=== PATIENT | female | born 1960 | race Caucasian/White ===

== ENCOUNTER 2018-12-02 16:16 | Inpatient (IN) | payer OTHER ==
--- OUTSIDE RECORDS SUMMARY | 2018-12-02 16:21 | XMS REPORT | Clinical Summary ---
:1960 Author Organization [facility] Address [address] [place] [address] Care Team Providers Name Role Phone Rafael Vega MD Primary Care Provider Allergies Active Allergy Reactions Severity Noted Date Comments Penicillins Rash Low 01/31/2018 Medications Medication Sig Dispensed Refills Start Date End Date Status metFORMIN Take 1 mg by 0 Active (GLUCOPHAGE) 1,000 mouth 2 (two) mg tablet times a day. simvastatin (ZOCOR) Take 10 mg by 0 Active 20 MG tablet mouth nightly. lurasidone (LATUDA) Take 60 mg by 0 Active 60 mg tablet mouth daily. desvenlafaxine Take 100 mg by 0 Active (PRISTIQ) 100 MG 24 mouth daily. hr tablet topiramate (TOPAMAX) Take 50 mg by 0 Active 50 MG tablet mouth 2 (two) times a day. metoprolol succinate Take 100 mg by 0 Active XL (TOPROL-XL) 100 mouth daily. mg 24 hr tablet esomeprazole Take 40 mg by 0 Active (NexIUM) 40 MG mouth daily capsule before breakfast. ranitidine (ZANTAC) Take 150 mg by 0 Active 150 MG tablet mouth nightly. umeclidinium Inhale 1 puff 0 Active brm/vilanterol tr daily. (ANORO ELLIPTA INHL) polyethylene glycol Take 17 g by 0 Active (MIRALAX) 17 gram mouth daily. packet lisinopril Take 1 tablet 30 tablet 0 04/23/2018 Active (PRINIVIL,ZESTRIL) (20 mg total) 20 mg tablet by mouth nightly for 30 days. amitriptyline Take by mouth 0 Discontinued (ELAVIL) 75 MG nightly. 8 tablet levomefolate-algal Take by mouth 0 Discontinued oil (DEPLIN, ALGAL daily. 8 OIL,) 15-90.314 mg capsule furosemide (LASIX) Take 20 mg by 0 Discontinued 20 mg tablet mouth daily. 8 lisinopril Take 10 mg by 0 Discontinued (PRINIVIL,ZESTRIL) mouth nightly. 8 10 mg tablet sodium chloride 0.9% by epidural 0 Discontinued parenteral solution route 8 with morPHINE PF 1 continuously. mg/mL solution, bupivacaine (PF) 0.5 % (5 mg/mL) solution 0.0625 %, clonIDINE (PF) 1,000 mcg/10 mL (100 mcg/mL) solution 1 mcg/mL calcium carbonate Chew 1 tablet 42 tablet 0 04/23/2018 (TUMS) 200 mg (500 mg total) 8 calcium (500 mg) 3 (three) chewable tablet times a day for 14 days. docusate sodium Take 1 capsule 60 capsule 0 04/23/2018 (COLACE) 100 MG (100 mg total) 8 capsule by mouth 2 (two) times a day for 30 days. gabapentin Take 1 capsule 90 capsule 0 04/23/2018 (NEURONTIN) 100 mg (100 mg total) 8 capsule by mouth 3 (three) times a day for 30 days. pantoprazole Take 1 tablet 60 tablet 0 04/23/2018 Discontinued (PROTONIX) 40 MG EC (40 mg total) 8 tablet by mouth 2 (two) times a day for 30 days. polyethylene glycol Take 17 g by 30 packet 0 04/24/2018 Discontinued (MIRALAX) 17 gram mouth daily 8 packet for 30 days. senna (SENOKOT) 8.6 Take 2 tablets 60 tablet 0 04/24/2018 mg tablet by mouth daily 8 with lunch for 30 days. tiZANidine Take 1 tablet 30 tablet 2 04/23/2018 (ZANAFLEX) 2 MG (2 mg total) 8 tablet by mouth every 6 (six) hours as needed for muscle spasms for up to 30 days. amLODIPine (NORVASC) Take 1 tablet 30 tablet 0 04/25/2018 5 mg tablet (5 mg total) 8 by mouth daily for 30 days. Active Problems Problem Noted Date Acute post-hemorrhagic anemia 04/14/2018 S/P lumbar spinal fusion 04/14/2018 Electrolyte and fluid disorder 04/14/2018 Acute respiratory distress 04/06/2018 Post-operative pain 04/04/2018 Post-operative nausea and vomiting 04/04/2018 Chronic pain 04/04/2018 Obesity, Class III, BMI 40-49.9 (morbid obesity) 04/04/2018 Acute blood loss anemia 04/04/2018 Other secondary scoliosis 03/31/2018 Scoliosis due to degenerative disease of spine in adult patient 02/11/2018 Encounters Date Type Specialty Care Team Description 10/12/2018 Office Visit Elizabeth Thomas, S/P lumbar spinal Brandt Dhillon MD fusion (Primary Dx) 10/12/2018 Hospital Encounter Radiology Allen Thomas MD thoracolumbar spine, unspecified scoliosis type 10/12/2018 Orders Only Neurosurgery Portillo, Lumbar radiculopathy, acute ( Primary Dx); [place], [place] Thoracic spine pain 10/12/2018 Orders Only Neurosurgery Leuf[place]Karo Scoliosis of za, Yasmeen, thoracolumbar spine, MA unspecified scoliosis type (Primary Dx) 08/26/2018 Office Visit AMINATA Atkinson MD ENCOUNTER--DISREGARD (Primary Dx) 08/25/2018 Orders Only Neurosurgery [place] Scoliosis of za, Yasmeen, thoracolumbar spine, MA unspecified scoliosis type (Primary Dx) 05/18/2018 Office Visit Elizabeth Thomas, Scoliosis due to Brandt Dhillon MD degenerative disease of spine in adult patient (Primary Dx) 05/18/2018 Hospital Encounter Radiology Allen Thomas MD thoracolumbar spine, unspecified scoliosis type 05/15/2018 Transcribe Orders Neurosurgery [place]Karo Scoliosis of za, Yasmeen, thoracolumbar spine, MA unspecified scoliosis type (Primary Dx) 04/14/2018 - Hospital Encounter Rehabilitation Tastard, Scoliosis due to 04/24/2018 Lexie Gunn MD degenerative disease of spine in adult patient (Primary Dx) 04/03/2018 Anesthesia Event General Surgery Emperatriz Messer MD 04/03/2018 Surgery General Surgery William, L2-L3, L4-L5 LATERAL Brandt Dhillon MD INTERBODY FUSION W/ INSTRUMENTATION 03/31/2018 Anesthesia Event General Surgery 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 03/31/2018 - Hospital Encounter Neurosurgery William, Other secondary scoliosis; 04/14/2018 Brandt Dhillon MD Scoliosis of lumbar spine, unspecified scoliosis type 03/16/2018 Hospital Encounter Radiology William, Preop testing Brandt Dhillon MD 03/16/2018 Pre-Admit Testing Pre-Admission Testing William Preop testing ( Primary Appointment Brandt Dhillon MD Dx) 03/12/2018 Pre-Admit Testing Pre-Admission Testing William Preop testing ( Primary Appointment Brandt Dhillon MD Dx) 02/04/2018 Hospital Encounter Radiology William Age-related Brandt Dhillon MD osteoporosis with current pathological fracture, initial encounter 02/04/2018 Hospital Encounter Radiology William Age-related Brandt Dhillon MD osteoporosis with current pathological fracture, initial encounter 02/04/2018 Office Visit Neurosurgery William, Scoliosis due to Brandt Dhillon MD degenerative disease of spine in adult patient (Primary Dx) 02/04/2018 Transcribe Orders Neurosurgery Jose RamonKaro Age-related za, Yasmeen, osteoporosis with MA current pathological fracture, initial encounter (Primary Dx) after 12/01/2017 Family History Medical History Relation Name Comments Cancer Paternal Grandfather HIGH BLOOD PRESSURE/DIABETES/STROKE/THYROID TOOLITTLE Relation Name Status Comments Paternal Grandfather Other Social History Tobacco Use Types Packs/Day Years Used Date Former Smoker 2 25 Quit: 2011 Smokeless Tobacco: Never Used Comments: QUITE 5 YEARS Alcohol Use Drinks/Week oz/Week Comments No Sex Assigned at Date Recorded Not on file Job Start Date Occupation Industry Not on file Not on file Not on file Travel History Travel Start Travel End No recent travel history available. Last Filed Vital Signs Vital Sign Reading Time Taken Blood Pressure 118/65 04/24/2018 10:49 AM CDT Pulse 82 04/24/2018 10:49 AM CDT Temperature 37.1 C (98.7 F) 04/24/2018 10:49 AM CDT Respiratory Rate 18 04/24/2018 10:49 AM CDT Oxygen Saturation 95% 04/24/2018 10:49 AM CDT Inhaled Oxygen Concentration - - Weight 117 kg (259 lb) 03/31/2018 6:56 AM CDT Height 170.2 cm (5' 7") 03/31/2018 6:56 AM CDT Body Mass Index 40.57 03/31/2018 6:56 AM CDT Plan of Treatment Date Type Specialty Care Team Description 04/07/2019 Appointment Radiology Brandt Thomas MD [address] [place], [place] [id number] 04/07/2019 Appointment Radiology Brandt Thomas MD [address] [place], [place] [phone] 04/07/2019 Office Visit Neurosurgery Brandt Thomas MD [address] [place], [place] [phone] Health Maintenance Due Date Last Done Comments CERVICAL CANCER SCREENING 1981 BREAST CANCER SCREENING 2010 COLON CANCER SCREENING 2010 SHINGLES VACCINES (#1) 2010 INFLUENZA VACCINE Completed 10/16/2018 Implants Implanted Type Area Business Office Assistant Device Shelf Model / Identifier Expiration Serial / Lot Date Bone Matriz Osteocel Pro Large - [id number] - [id number] Human Tissue N/A: NUVASIVE 02/18/2023 [id number] / Implanted: Qty: 1 on 03/31/2018 by Brandt Thomas MD Implants N/A [id number] / [id number] Paste Dbm Easy-Dispensing Wdmth Syr 10ml [address] - [id number] - [id number] Human Tissue Posteri MEDTRONIC 10/28/2019 [id number] / Implanted: Qty: 1 on 04/03/2018 by Brandt Thomas MD Implants or: N/A SPINAL GRAFT [id number] / TECHNOLOGIES [id number] Paste Dbm Easy-Dispensing Wdmth Syr 10ml [address] - [id number] - [id number] Human Tissue Posteri MEDTRONIC 10/30/2019 [id number] / Implanted: Qty: 1 on 04/03/2018 by Brandt Thomas MD Implants or: N/A SPINAL GRAFT [id number] / TECHNOLOGIES [id number] Bone Cancellous 30ml Chips - [id number] - [id number] Human Tissue Posteri RTI SURGICAL 01/30/2022 [id number] / Implanted: Qty: 1 on 04/03/2018 by Brandt Thomas MD Implants or: N/A INC. [id number] / [id number] Bone Cancellous 30ml Chips - [id number] - [id number] Human Tissue Posteri RTI SURGICAL 01/30/2022 [id number] / Implanted: Qty: 1 on 04/03/2018 by Brandt Thomas MD Implants or: N/A INC. [id number] / [id number] Bone Matriz Osteocel Pro Large - [id number] - [id number] Human Tissue N/A: NUVASIVE 11/13/2022 [id number] / Implanted: Qty: 1 on 04/03/2018 by Brandt Thomas MD Implants N/A [id number] / [id number] Kit Bone Grft Lmbr Tprd 8ml Xxl Infuse - [id number] Human Tissue Posteri MEDTRONIC 02/20/2019 [id number] / Implanted: Qty: 1 on 04/03/2018 by Brandt Thomas MD Implants or: N/A SPINAL AND / BIOLOGICS [id number] Kit Bone Grft Lmbr Tprd 8ml Xxl Infuse - [id number] Human Tissue Posteri MEDTRONIC 02/20/2019 [id number] / Implanted: Qty: 1 on 04/03/2018 by Brandt Thomas MD Implants or: N/A SPINAL AND / BIOLOGICS [id number] Maxcess 4 Surgical Access Kit - [id number] IPM IMPLANT N/A: NUVASIVE SPINE [id number] / Implanted: Qty: 1 on 03/31/2018 by Brandt Thomas MD DEVICES N/A / Base Ti Imp, [id number] 10 - [id number] [id number] IMPLANT N/A: NUVASIVE SPINE [id number] / Implanted: Qty: 1 on 03/31/2018 by Bradnt Thomas MD DEVICES N/A / Base Ti [place] 6.0 X 17.5mm Variable - [id number] IPM IMPLANT N/A: NUVASIVE SPINE [id number] / Implanted: Qty: 1 on 03/31/2018 by Brandt Thomas MD DEVICES N/A / Modulus Xlw, [id number] 15deg - [id number] [id number] IMPLANT N/A: NUVASIVE SPINE 01/05/2023 [id number] / Implanted: Qty: 1 on 04/03/2018 by Brandt Thomas MD DEVICES N/A / [id number] Modulus Xlw, [id number] 15deg - [id number] IPM IMPLANT N/A: NUVASIVE SPINE 01/05/2023 [id number] / Implanted: Qty: 1 on 04/03/2018 by Brandt Thomas MD DEVICES N/A / [id number] Maxcess 4 Surgical Access Kit - [id number] [id number] IMPLANT N/A: NUVASIVE SPINE [id number] / Implanted: 04/03/2018 (Quantity not on file) DEVICES N/A / Unid Patient Specific William 5.5 - [id number] IPM IMPLANT N/A: MEDICREA INT'L 07/04/2018 [id number] / Implanted: 04/03/2018 (Quantity not on file) DEVICES N/A / [id number] Screw [id number] Bs Cnmas 7.5x80 T/C - [id number] IPM IMPLANT Posteri MEDTRONIC [id number] / Implanted: Qty: 1 on 04/03/2018 by Brandt Thomas MD DEVICES or: N/A SOFAMOR DANEK / Screw [id number] 5.5 Mas 7.5x100 Cc - [id number] IPM IMPLANT Posteri MEDTRONIC [id number] / Implanted: Qty: 1 on 04/03/2018 by Brandt Thomas MD DEVICES or: N/A SOFAMOR DANEK / Screw [id number] 5.5 Mas 5.5x35 Cc - [id number] IPM IMPLANT Posteri MEDTRONIC [id number] / Implanted: Qty: 4 on 04/03/2018 by Brandt Thomas MD DEVICES or: N/A SOFAMOR DANEK / Screw [id number] 5.5 Mas 5.5x40 Cc - [id number] IPM IMPLANT Posteri MEDTRONIC [id number] / Implanted: Qty: 3 on 04/03/2018 by Brandt Thomas MD DEVICES or: N/A SOFAMOR DANEK / Screw [id number] 5.5 Mas 5.5x45 Cc - [id number] IPM IMPLANT Posteri MEDTRONIC [id number] / Implanted: Qty: 12 on 04/03/2018 by Brandt Thomas MD DEVICES or: N/A SOFAMOR DANEK / Screw [id number] 5.5 Mas 5.5x50 Cc - [id number] IPM IMPLANT Posteri MEDTRONIC [id number] / Implanted: Qty: 2 on 04/03/2018 by Brandt Thomas MD DEVICES or: N/A SOFAMOR DANEK / Screw [id number] 5.5 Mas 6.5x50 Cc - [id number] IPM IMPLANT Posteri MEDTRONIC [id number] / Implanted: Qty: 1 on 04/03/2018 by Brandt Thomas MD DEVICES or: N/A SOFAMOR DANEK / Screw [id number] 5.5 Mas 6.5x45 Cc - [id number] IPM IMPLANT Posteri MEDTRONIC [id number] / Implanted: Qty: 3 on 04/03/2018 by Brandt Thomas MD DEVICES or: N/A SOFAMOR DANEK / Screw [id number] 5.5 Mas 7.5x40 Cc - [id number] IPM IMPLANT Posteri MEDTRONIC [id number] / Implanted: Qty: 1 on 04/03/2018 by Brandt Thomas MD DEVICES or: N/A SOFAMOR DANEK / Screw [id number] 5.5 Mas 7.5x35 Cc - [id number] IPM IMPLANT Posteri MEDTRONIC [id number] / Implanted: Qty: 1 on 04/03/2018 by Brandt Thomas MD DEVICES or: N/A SOFAMOR DANEK / Screw [id number] 5.5 Mas 8.5x50 Cc - [id number] IPM IMPLANT Posteri MEDTRONIC [id number] / Implanted: Qty: 1 on 04/03/2018 by Brandt Thomas MD DEVICES or: N/A SOFAMOR DANEK / Screw [id number] 5.5 Mas 8.5x40 Cc - [id number] IPM IMPLANT Posteri MEDTRONIC [id number] / Implanted: Qty: 1 on 04/03/2018 by Brandt Thomas MD DEVICES or: N/A SOFAMOR DANEK / Screw [id number] 5.5 Mas 6.5x50 Cc - [id number] IPM IMPLANT Posteri MEDTRONIC [id number] / Implanted: Qty: 1 on 04/03/2018 by Brandt Thomas MD DEVICES or: N/A SOFAMOR DANEK / Connector [id number] 5/6-6.0 Clsd Lat 20 - [id number] IPM IMPLANT Posteri MEDTRONIC [id number] / Implanted: Qty: 1 on 04/03/2018 by Brandt Thomas MD DEVICES or: N/A SOFAMOR DANEK / Connector [id number] 5/6-6.0 Clsd Lat 25 - [id number] IPM IMPLANT Posteri MEDTRONIC [id number] / Implanted: Qty: 1 on 04/03/2018 by Brandt Thomas MD DEVICES or: N/A SOFAMOR DANEK / Material Bone Hmsts Wtrsolbl 2.5g Ostene - [id number] Orthopedic N/A: [id number] / Implanted: Qty: 1 on 03/31/2018 by Brandt Thomas MD Trauma N/A / Implants [id number] Material Bone Hmsts Wtrsolbl 2.5g Ostene - [id number] Orthopedic N/A: [id number] / Implanted: Qty: 1 on 03/31/2018 by Brandt Thomas MD Trauma N/A / Implants [id number] Material Bone Hmsts Wtrsolbl 2.5g Ostene - [id number] Orthopedic N/A: [id number] / Implanted: Qty: 1 on 04/03/2018 by Brandt Thomas MD Trauma N/A / Implants [id number] Material Bone Hmsts Wtrsolbl 2.5g Ostene - [id number] Orthopedic N/A: [id number] / Implanted: Qty: 1 on 04/03/2018 by Brandt Thomas MD Trauma N/A / Implants [id number] Screw Bone Canc Lag 4x30mm Ns - [id number] Orthopedic Posteri MEDTRONIC [id number] / Implanted: Qty: 32 on 04/03/2018 by Brandt Thomas MD Trauma or: N/A SOFAMOR DANEK / Implants Kit Dil M5 Xlif - [id number] Spinal N/A: NUVASIVE [id number] / Implanted: Qty: 1 on 03/31/2018 by Brandt Thomas MD Implants N/A / Kit Dil M5 Xlif - [id number] Spinal N/A: NUVASIVE [id number] / Implanted: 04/03/2018 (Quantity not on file) Implants N/A / Screw Set Std Ti 1/4in 32mm - [id number] Spinal Posteri MEDTRONIC [id number] / Implanted: Qty: 2 on 04/03/2018 by Brandt Thomas MD Implants or: N/A SPINAL AND / BIOLOGICS Procedures Procedure Name Priority Date/Time Associated Diagnosis Comments XR SPINE SCOLIOSIS 2-3 Routine 10/12/2018 2:09 Scoliosis of Results for this VIEWS PM WATCH ADJUSTER thoracolumbar spine, procedure are in unspecified scoliosis the results type section. TRANSFUSE RED BLOOD Routine 05/27/2018 5:55 CELLS PM CDT XR SPINE SCOLIOSIS 2-3 Routine 05/18/2018 12:14 Scoliosis of Results for this VIEWS PM CDT thoracolumbar spine, procedure are in unspecified scoliosis the results type section. POC GLUCOSE Routine 04/24/2018 7:13 Results for this AM CDT procedure are in the results section. POC GLUCOSE Routine 04/23/2018 7:40 Results for this AM CDT procedure are in the results section. POC GLUCOSE Routine 04/22/2018 6:42 Results for this AM CDT procedure are in the results section. POC GLUCOSE Routine 04/21/2018 6:33 Results for this AM CDT procedure are in the results section. POC GLUCOSE Routine 04/20/2018 8:34 Results for this PM CDT procedure are in the results section. POC GLUCOSE Routine 04/20/2018 6:22 Results for this AM CDT procedure are in the results section. ZZESTIMATED GFR Routine 04/20/2018 4:00 Results for this AM CDT procedure are in the results section. BASIC METABOLIC PANEL Routine 04/20/2018 4:00 Results for this AM CDT procedure are in the results section. POC GLUCOSE Routine 04/19/2018 6:46 Results for this AM CDT procedure are in the results section. POC GLUCOSE Routine 04/18/2018 5:50 Results for this PM CDT procedure are in the results section. POC GLUCOSE Routine 04/18/2018 6:28 Results for this AM CDT procedure are in the results section. SMEAR REVIEW Routine 04/18/2018 5:00 Results for this AM CDT procedure are in the results section. ZZESTIMATED GFR Routine 04/18/2018 5:00 Results for this AM CDT procedure are in the results section. THYROID STIMULATING Routine 04/18/2018 5:00 Results for this HORMONE AM CDT procedure are in the results section. HC COMPLETE BLD COUNT Routine 04/18/2018 5:00 Results for this W/AUTO DIFF AM CDT procedure are in the results section. BASIC METABOLIC PANEL Routine 04/18/2018 5:00 Results for this AM CDT procedure are in the results section. URINALYSIS SCREEN AND Routine 04/17/2018 9:16 Results for this MICROSCOPY, WITH PM CDT procedure are in REFLEX TO CULTURE the results section. URINE CULTURE Routine 04/17/2018 9:16 Results for this PM CDT procedure are in the results section. POC GLUCOSE Routine 04/17/2018 9:10 Results for this PM CDT procedure are in the results section. NM LUNG VENTILATION STAT 04/17/2018 8:29 Results for this PERFUSION PM CDT procedure are in the results section. XR CHEST 1 VW PORTABLE STAT 04/17/2018 5:11 Results for this PM CDT procedure are in the results section. POC GLUCOSE Routine 04/17/2018 4:59 Results for this PM CDT procedure are in the results section. ZZESTIMATED GFR Routine 04/17/2018 12:55 Results for this PM CDT procedure are in the results section. COMPREHENSIVE Routine 04/17/2018 12:55 Results for this METABOLIC PANEL PM CDT procedure are in the results section. HC COMPLETE BLD COUNT Routine 04/17/2018 12:55 Results for this W/AUTO DIFF PM CDT procedure are in the results section. POC GLUCOSE Routine 04/17/2018 11:07 Results for this AM CDT procedure are in the results section. POC GLUCOSE Routine 04/17/2018 6:43 Results for this AM CDT procedure are in the results section. POC GLUCOSE Routine 04/16/2018 9:08 Results for this PM CDT procedure are in the results section. POC GLUCOSE Routine 04/16/2018 5:00 Results for this PM CDT procedure are in the results section. POC GLUCOSE Routine 04/16/2018 11:16 Results for this AM CDT procedure are in the results section. POC GLUCOSE Routine 04/16/2018 6:36 Results for this AM CDT procedure are in the results section. POC GLUCOSE Routine 04/15/2018 8:43 Results for this PM CDT procedure are in the results section. POC GLUCOSE Routine 04/15/2018 4:55 Results for this PM CDT procedure are in the results section. POC GLUCOSE Routine 04/15/2018 11:07 Results for this AM CDT procedure are in the results section. HEMOGLOBIN A1C Routine 04/15/2018 7:02 Results for this AM CDT procedure are in the results section. HC COMPLETE BLD COUNT Routine 04/15/2018 7:02 Results for this W/AUTO DIFF AM CDT procedure are in the results section. POC GLUCOSE Routine 04/15/2018 6:23 Results for this AM CDT procedure are in the results section. POC GLUCOSE Routine 04/14/2018 8:59 Results for this PM CDT procedure are in the results section. URINALYSIS, AUTOMATED Routine 04/14/2018 8:30 Results for this WITH MICROSCOPY PM CDT procedure are in the results section. ZZESTIMATED GFR Routine 04/14/2018 7:45 Results for this PM CDT procedure are in the results section. PREALBUMIN LEVEL Routine 04/14/2018 7:45 Results for this PM CDT procedure are in the results section. PHOSPHORUS LEVEL Routine 04/14/2018 7:45 Results for this PM CDT procedure are in the results section. MAGNESIUM LEVEL Routine 04/14/2018 7:45 Results for this PM CDT procedure are in the results section. COMPREHENSIVE Routine 04/14/2018 7:45 Results for this METABOLIC PANEL PM CDT procedure are in the results section. POC GLUCOSE Routine 04/14/2018 4:45 Results for this PM CDT procedure are in the results section. POC GLUCOSE Routine 04/14/2018 11:30 Results for this AM CDT procedure are in the results section. POTASSIUM LEVEL Routine 04/14/2018 8:22 Results for this AM CDT procedure are in the results section. POC GLUCOSE Routine 04/14/2018 7:24 Results for this AM CDT procedure are in the results section. POC GLUCOSE Routine 04/13/2018 9:43 Results for this PM CDT procedure are in the results section. POC GLUCOSE Routine 04/13/2018 5:21 Results for this PM CDT procedure are in the results section. POC GLUCOSE Routine 04/13/2018 11:29 Results for this AM CDT procedure are in the results section. ZZESTIMATED GFR Routine 04/13/2018 3:35 Results for this AM CDT procedure are in the results section. HC COMPLETE BLD COUNT Routine 04/13/2018 3:35 Results for this W/AUTO DIFF AM CDT procedure are in the results section. MAGNESIUM LEVEL Routine 04/13/2018 3:35 Results for this AM CDT procedure are in the results section. BASIC METABOLIC PANEL Routine 04/13/2018 3:35 Results for this AM CDT procedure are in the results section. POC GLUCOSE Routine 04/12/2018 8:10 Results for this PM CDT procedure are in the results section. POC GLUCOSE Routine 04/12/2018 3:55 Results for this PM CDT procedure are in the results section. POC GLUCOSE Routine 04/12/2018 11:24 Results for this AM CDT procedure are in the results section. POC GLUCOSE Routine 04/12/2018 7:54 Results for this AM CDT procedure are in the results section. HC COMPLETE BLD COUNT Routine 04/12/2018 6:35 Results for this W/AUTO DIFF AM CDT procedure are in the results section. ZZESTIMATED GFR Routine 04/12/2018 4:00 Results for this AM CDT procedure are in the results section. BASIC METABOLIC PANEL Routine 04/12/2018 4:00 Results for this AM CDT procedure are in the results section. POC GLUCOSE Routine 04/11/2018 10:20 Results for this PM CDT procedure are in the results section. POC GLUCOSE Routine 04/11/2018 4:34 Results for this PM CDT procedure are in the results section. POC GLUCOSE Routine 04/11/2018 12:06 Results for this PM CDT procedure are in the results section. POC GLUCOSE Routine 04/11/2018 8:13 Results for this AM CDT procedure are in the results section. ZZESTIMATED GFR Routine 04/11/2018 4:00 Results for this AM CDT procedure are in the results section. BASIC METABOLIC PANEL Routine 04/11/2018 4:00 Results for this AM CDT procedure are in the results section. POC GLUCOSE Routine 04/10/2018 10:01 Results for this PM CDT procedure are in the results section. POC GLUCOSE Routine 04/10/2018 4:36 Results for this PM CDT procedure are in the results section. ZZESTIMATED GFR Timed 04/10/2018 2:35 Results for this PM CDT procedure are in the results section. BASIC METABOLIC PANEL Timed 04/10/2018 2:35 Results for this PM CDT procedure are in the results section. POC GLUCOSE Routine 04/10/2018 12:05 Results for this PM CDT procedure are in the results section. POC GLUCOSE Routine 04/10/2018 7:59 Results for this AM CDT procedure are in the results section. CBC HEMOGRAM Routine 04/10/2018 3:25 Results for this AM CDT procedure are in the results section. ZZESTIMATED GFR Routine 04/10/2018 3:25 Results for this AM CDT procedure are in the results section. BASIC METABOLIC PANEL Routine 04/10/2018 3:25 Results for this AM CDT procedure are in the results section. POC GLUCOSE Routine 04/09/2018 9:05 Results for this PM CDT procedure are in the results section. POC GLUCOSE Routine 04/09/2018 4:08 Results for this PM CDT procedure are in the results section. POC GLUCOSE Routine 04/09/2018 11:40 Results for this AM CDT procedure are in the results section. VANCOMYCIN LEVEL, Timed 04/09/2018 9:26 Results for this TROUGH AM CDT procedure are in the results section. POC GLUCOSE Routine 04/09/2018 8:20 Results for this AM CDT procedure are in the results section. POC GLUCOSE Routine 04/09/2018 4:38 Results for this AM CDT procedure are in the results section. ZZESTIMATED GFR Routine 04/09/2018 4:00 Results for this AM CDT procedure are in the results section. BASIC METABOLIC PANEL Routine 04/09/2018 4:00 Results for this AM CDT procedure are in the results section. POC GLUCOSE Routine 04/08/2018 11:50 Results for this PM CDT procedure are in the results section. POC GLUCOSE Routine 04/08/2018 9:09 Results for this PM CDT procedure are in the results section. POC GLUCOSE Routine 04/08/2018 5:04 Results for this PM CDT procedure are in the results section. ECG 12-LEAD STAT 04/08/2018 3:34 Results for this PM CDT procedure are in the results section. TROPONIN STAT 04/08/2018 3:04 Results for this PM CDT procedure are in the results section. ZZESTIMATED GFR Routine 04/08/2018 3:04 Results for this PM CDT procedure are in the results section. BASIC METABOLIC PANEL Routine 04/08/2018 3:04 Results for this PM CDT procedure are in the results section. HC COMPLETE BLD COUNT Routine 04/08/2018 3:04 Results for this W/AUTO DIFF PM CDT procedure are in the results section. POC GLUCOSE Routine 04/08/2018 11:55 Results for this AM CDT procedure are in the results section. POC GLUCOSE Routine 04/08/2018 8:23 Results for this AM CDT procedure are in the results section. POC GLUCOSE Routine 04/08/2018 5:43 Results for this AM CDT procedure are in the results section. POC GLUCOSE Routine 04/07/2018 10:45 Results for this PM CDT procedure are in the results section. POC GLUCOSE Routine 04/07/2018 8:15 Results for this PM CDT procedure are in the results section. VANCOMYCIN LEVEL, Routine 04/07/2018 5:07 Results for this RANDOM PM CDT procedure are in the results section. POC GLUCOSE Routine 04/07/2018 5:02 Results for this PM CDT procedure are in the results section. POC GLUCOSE Routine 04/07/2018 11:51 Results for this AM CDT procedure are in the results section. POTASSIUM LEVEL Routine 04/07/2018 11:26 Results for this AM CDT procedure are in the results section. XR CHEST 1 VW PORTABLE Timed 04/07/2018 10:14 Results for this AM CDT procedure are in the results section. POC GLUCOSE Routine 04/07/2018 7:58 Results for this AM CDT procedure are in the results section. ZZESTIMATED GFR Routine 04/07/2018 5:12 Results for this AM CDT procedure are in the results section. PHOSPHORUS LEVEL Routine 04/07/2018 5:12 Results for this AM CDT procedure are in the results section. MAGNESIUM LEVEL Routine 04/07/2018 5:12 Results for this AM CDT procedure are in the results section. IONIZED CALCIUM Routine 04/07/2018 5:12 Results for this AM CDT procedure are in the results section. CBC HEMOGRAM Routine 04/07/2018 5:12 Results for this AM CDT procedure are in the results section. BASIC METABOLIC PANEL Routine 04/07/2018 5:12 Results for this AM CDT procedure are in the results section. POC GLUCOSE Routine 04/07/2018 12:34 Results for this AM CDT procedure are in the results section. POC GLUCOSE Routine 04/06/2018 8:53 Results for this PM CDT procedure are in the results section. POC GLUCOSE Routine 04/06/2018 4:00 Results for this PM CDT procedure are in the results section. POC GLUCOSE Routine 04/06/2018 11:26 Results for this AM CDT procedure are in the results section. XR PICC CHEST PORTABLE Routine 04/06/2018 11:18 Scoliosis of lumbar Results for this AM CDT spine, unspecified procedure are in scoliosis type the results section. HC CATH DUAL LUMEN Routine 04/06/2018 10:34 Results for this PICC AM CDT procedure are in the results section. HC US GUIDED VASCULAR Routine 04/06/2018 10:34 Results for this ACCESS AM CDT procedure are in the results section. HC CVL PICC INSERT 5 Routine 04/06/2018 10:34 Results for this YRS OR > W/O IMG GUID AM CDT procedure are in the results section. INTRAOPERATIVE Routine 04/06/2018 7:24 MONITORING AM CDT POC GLUCOSE Routine 04/06/2018 7:11 Results for this AM CDT procedure are in the results section. PREPARE RBC Timed 04/06/2018 6:40 AM CDT PREPARE RBC Timed 04/06/2018 6:40 Results for this AM CDT procedure are in the results section. TYPE AND SCREEN Timed 04/06/2018 6:40 Results for this AM CDT procedure are in the results section. ZZESTIMATED GFR Routine 04/06/2018 4:02 Results for this AM CDT procedure are in the results section. MAGNESIUM LEVEL Routine 04/06/2018 4:02 Results for this AM CDT procedure are in the results section. PHOSPHORUS LEVEL Routine 04/06/2018 4:02 Results for this AM CDT procedure are in the results section. COMPREHENSIVE Routine 04/06/2018 4:02 Results for this METABOLIC PANEL AM CDT procedure are in the results section. HC COMPLETE BLD COUNT Routine 04/06/2018 3:50 Results for this W/AUTO DIFF AM CDT procedure are in the results section. POC GLUCOSE Routine 04/06/2018 3:37 Results for this AM CDT procedure are in the results section. POC GLUCOSE Routine 04/05/2018 11:44 Results for this PM CDT procedure are in the results section. ZZESTIMATED GFR Timed 04/05/2018 8:00 Results for this PM CDT procedure are in the results section. BASIC METABOLIC PANEL Timed 04/05/2018 8:00 Results for this PM CDT procedure are in the results section. POC GLUCOSE Routine 04/05/2018 7:32 Results for this PM CDT procedure are in the results section. US HEPATIC Routine 04/05/2018 4:00 Results for this PM CDT procedure are in the results section. POC GLUCOSE Routine 04/05/2018 3:25 Results for this PM CDT procedure are in the results section. ECG 12-LEAD Routine 04/05/2018 2:40 Results for this PM CDT procedure are in the results section. XR ABDOMEN 1 VW STAT 04/05/2018 12:38 Results for this PORTABLE PM CDT procedure are in the results section. POC GLUCOSE Routine 04/05/2018 11:30 Results for this AM CDT procedure are in the results section. ZZESTIMATED GFR Routine 04/05/2018 10:20 Results for this AM CDT procedure are in the results section. ARTERIAL BLOOD GAS Routine 04/05/2018 10:20 Results for this AM CDT procedure are in the results section. BASIC METABOLIC PANEL Routine 04/05/2018 10:20 Results for this AM CDT procedure are in the results section. US DUPLEX VENOUS LOWER STAT 04/05/2018 8:28 Results for this EXTREMITY BILATERAL AM CDT procedure are in the results section. POC GLUCOSE Routine 04/05/2018 7:00 Results for this AM CDT procedure are in the results section. ARTERIAL BLOOD GAS Routine 04/05/2018 6:37 Results for this AM CDT procedure are in the results section. XR CHEST 1 VW PORTABLE STAT 04/05/2018 5:08 Results for this AM CDT procedure are in the results section. ARTERIAL BLOOD GAS STAT 04/05/2018 5:00 Results for this AM CDT procedure are in the results section. CT ANGIOGRAM PE CHEST STAT 04/05/2018 4:52 Results for this AM CDT procedure are in the results section. POC GLUCOSE Routine 04/05/2018 3:52 Results for this AM CDT procedure are in the results section. POTASSIUM LEVEL STAT 04/05/2018 3:35 Results for this AM CDT procedure are in the results section. PHOSPHORUS LEVEL STAT 04/05/2018 3:35 Results for this AM CDT procedure are in the results section. BLOOD CULTURE, AEROBIC Routine 04/05/2018 2:00 Results for this & ANAEROBIC AM CDT procedure are in the results section. BLOOD CULTURE, AEROBIC Routine 04/05/2018 1:00 Results for this & ANAEROBIC AM CDT procedure are in the results section. MANUAL DIFFERENTIAL Routine 04/05/2018 12:10 Results for this AM CDT procedure are in the results section. CBC WITH PLATELET AND Routine 04/05/2018 12:10 Results for this DIFFERENTIAL AM CDT procedure are in the results section. ZZESTIMATED GFR Routine 04/05/2018 12:03 Results for this AM CDT procedure are in the results section. IONIZED CALCIUM Routine 04/05/2018 12:03 Results for this AM CDT procedure are in the results section. PHOSPHORUS LEVEL Routine 04/05/2018 12:03 Results for this AM CDT procedure are in the results section. MAGNESIUM LEVEL Routine 04/05/2018 12:03 Results for this AM CDT procedure are in the results section. COMPREHENSIVE Routine 04/05/2018 12:03 Results for this METABOLIC PANEL AM CDT procedure are in the results section. ARTERIAL BLOOD GAS STAT 04/05/2018 12:00 Results for this AM CDT procedure are in the results section. POC GLUCOSE Routine 04/04/2018 11:59 Results for this PM CDT procedure are in the results section. SMEAR REVIEW STAT 04/04/2018 9:45 Results for this PM CDT procedure are in the results section. HC COMPLETE BLD COUNT STAT 04/04/2018 9:45 Results for this W/AUTO DIFF PM CDT procedure are in the results section. TRANSFUSE RED BLOOD Routine 04/04/2018 9:32 CELLS PM CDT POC GLUCOSE Routine 04/04/2018 8:06 Results for this PM CDT procedure are in the results section. TRANSFUSE RED BLOOD Routine 04/04/2018 6:45 CELLS PM CDT HEMOGLOBIN & Routine 04/04/2018 4:00 Results for this HEMATOCRIT PM CDT procedure are in the results section. POC GLUCOSE Routine 04/04/2018 3:39 Results for this PM CDT procedure are in the results section. POC GLUCOSE Routine 04/04/2018 11:23 Results for this AM CDT procedure are in the results section. XR CHEST 1 VW PORTABLE Routine 04/04/2018 9:03 Results for this AM CDT procedure are in the results section. POC GLUCOSE Routine 04/04/2018 8:18 Results for this AM CDT procedure are in the results section. POC GLUCOSE Routine 04/04/2018 5:21 Results for this AM CDT procedure are in the results section. SMEAR REVIEW Routine 04/04/2018 3:15 Results for this AM CDT procedure are in the results section. HC COMPLETE BLD COUNT Routine 04/04/2018 3:15 Results for this W/AUTO DIFF AM CDT procedure are in the results section. POC GLUCOSE Routine 04/04/2018 12:00 Results for this AM CDT procedure are in the results section. ZZESTIMATED GFR Routine 04/04/2018 12:00 Results for this AM CDT procedure are in the results section. BASIC METABOLIC PANEL Routine 04/04/2018 12:00 Results for this AM CDT procedure are in the results section. ECG 12-LEAD STAT 04/03/2018 11:15 Results for this PM CDT procedure are in the results section. SMEAR REVIEW STAT 04/03/2018 11:00 Results for this PM CDT procedure are in the results section. HC COMPLETE BLD COUNT STAT 04/03/2018 11:00 Results for this W/AUTO DIFF PM CDT procedure are in the results section. ARTERIAL BLOOD GAS STAT 04/03/2018 10:35 Results for this PM CDT procedure are in the results section. ZZESTIMATED GFR STAT 04/03/2018 10:30 Results for this PM CDT procedure are in the results section. PHOSPHORUS LEVEL STAT 04/03/2018 10:30 Results for this PM CDT procedure are in the results section. MAGNESIUM LEVEL STAT 04/03/2018 10:30 Results for this PM CDT procedure are in the results section. BASIC METABOLIC PANEL STAT 04/03/2018 10:30 Results for this PM CDT procedure are in the results section. POC GLUCOSE Routine 04/03/2018 10:09 Results for this PM CDT procedure are in the results section. CT HEAD WO CONTRAST STAT 04/03/2018 9:08 Results for this PM CDT procedure are in the results section. ARTERIAL BLOOD GAS Routine 04/03/2018 7:59 Results for this PM CDT procedure are in the results section. SMEAR REVIEW Routine 04/03/2018 6:45 Results for this PM CDT procedure are in the results section. ZZESTIMATED GFR Routine 04/03/2018 6:45 Results for this PM CDT procedure are in the results section. BASIC METABOLIC PANEL Routine 04/03/2018 6:45 Results for this PM CDT procedure are in the results section. HC COMPLETE BLD COUNT Routine 04/03/2018 6:45 Results for this W/AUTO DIFF PM CDT procedure are in the results section. MAGNESIUM LEVEL STAT 04/03/2018 5:05 Results for this PM CDT procedure are in the results section. LACTIC ACID, SYRINGE STAT 04/03/2018 5:05 Results for this PM CDT procedure are in the results section. IONIZED CALCIUM, STAT 04/03/2018 5:05 Results for this ARTERIAL PM CDT procedure are in the results section. GLUCOSE LEVEL, SYRINGE STAT 04/03/2018 5:05 Results for this PM CDT procedure are in the results section. POTASSIUM, SYRINGE STAT 04/03/2018 5:05 Results for this PM CDT procedure are in the results section. HEMOGLOBIN, SYRINGE STAT 04/03/2018 5:05 Results for this PM CDT procedure are in the results section. SODIUM LEVEL, SYRINGE STAT 04/03/2018 5:05 Results for this PM CDT procedure are in the results section. ARTERIAL BLOOD GAS, STAT 04/03/2018 5:05 Results for this CORRECTED PM CDT procedure are in the results section. OR FL > 1 HOUR Routine 04/03/2018 4:41 Results for this PM CDT procedure are in the results section. TRANSFUSE RED BLOOD Routine 04/03/2018 4:34 CELLS PM CDT XR LUMBAR SPINE 1 VW Routine 04/03/2018 4:31 Results for this PM CDT procedure are in the results section. XR CERVICAL SPINE 1 VW Routine 04/03/2018 4:31 Results for this PM CDT procedure are in the results section. TRANSFUSE RED BLOOD Routine 04/03/2018 4:10 CELLS PM CDT LACTIC ACID, SYRINGE STAT 04/03/2018 3:50 Results for this PM CDT procedure are in the results section. MAGNESIUM LEVEL STAT 04/03/2018 3:50 Results for this PM CDT procedure are in the results section. GLUCOSE LEVEL, SYRINGE STAT 04/03/2018 3:50 Results for this PM CDT procedure are in the results section. HEMOGLOBIN, SYRINGE STAT 04/03/2018 3:50 Results for this PM CDT procedure are in the results section. IONIZED CALCIUM, STAT 04/03/2018 3:50 Results for this ARTERIAL PM CDT procedure are in the results section. SODIUM LEVEL, SYRINGE STAT 04/03/2018 3:50 Results for this PM CDT procedure are in the results section. POTASSIUM, SYRINGE STAT 04/03/2018 3:50 Results for this PM CDT procedure are in the results section. ARTERIAL BLOOD GAS, STAT 04/03/2018 3:50 Results for this CORRECTED PM CDT procedure are in the results section. GLUCOSE LEVEL, SYRINGE STAT 04/03/2018 2:11 Results for this PM CDT procedure are in the results section. IONIZED CALCIUM, STAT 04/03/2018 2:11 Results for this ARTERIAL PM CDT procedure are in the results section. HEMOGLOBIN, SYRINGE STAT 04/03/2018 2:11 Results for this PM CDT procedure are in the results section. POTASSIUM, SYRINGE STAT 04/03/2018 2:11 Results for this PM CDT procedure are in the results section. SODIUM LEVEL, SYRINGE STAT 04/03/2018 2:11 Results for this PM CDT procedure are in the results section. ARTERIAL BLOOD GAS, STAT 04/03/2018 2:11 Results for this CORRECTED PM CDT procedure are in the results section. OR FL > 1 HOUR Routine 04/03/2018 10:21 Results for this AM CDT procedure are in the results section. ARTERIAL LINE Routine 04/03/2018 9:17 AM CDT Procedure Note - Emperatriz Messer MD - 04/03/2018 9:17 AM CDT Arterial line Performed by: EMPERATRIZ MESSER Authorized by: EMPERATRIZ MESSER Patient Location: OR Start Time: 04/03/2018 7:52 AM End Time: 04/03/2018 7:54 AM Staff: Anesthesiologist: EMPERATRIZ MESSER Performed by: Anesthesiologist Pre-procedure: patient identified, IV checked, site and side verified, risks and benefits discussed, procedure verified, surgical consent complete, patient position confirmed, monitors and equipment checked and pre-op evaluation complete MSBT: antiseptic used, all elements of maximal sterile barrier technique followed, hand hygiene performed, cap/gown used by other personnel and solutions labeled TIme Out Performed: 04/03/2018 7:52 AM Indications: Indications: multiple ABGs and hemodynamic monitoring Anesthesia: Anesthesia: General Procedure Details: Arterial Line placement: Placed post induction Line placement site: Radial Line placement side: Right Arterial line gauge: 20 G Number of attempts: 1 Ultrasound guidance used: No Post-procedure: Post-procedure: Sterile dressing applied Post procedure circulation, sensation, movement: Unchanged Patient tolerance: Patient tolerated the procedure well with no immediate complications ZZESTIMATED GFR STAT 04/03/2018 9:05 AM CDT BASIC METABOLIC PANEL STAT 04/03/2018 9:05 AM CDT HC COMPLETE BLD COUNT STAT 04/03/2018 9:05 AM CDT Results for this W/AUTO DIFF procedure are in the results section. ND AN ELECTIVE ENDOTRACHEAL Routine 04/03/2018 8:10 AM CDT AIRWAY Procedure Note - Lor Mosher, PIG BREEDER - 04/03/2018 8:10 AM CDT Airway Date/Time: 04/03/2018 7:51 AM Performed by: LOR MOSHER Authorized by: EMPERATRIZ MESSER Location: OR Urgency: Elective Difficult Airway: No Preoxygenated with 100% O2: Yes C-spine Precautions Maintained Throughout: Yes Mask Ventilation: Easy mask Final Airway Type: Endotracheal airway Final Endotracheal Airway: ETT Cuffed: Yes Technique Used: Direct laryngoscopy Insertion Site: Oral Blade Type: Klaus Laryngoscope Blade/Videolaryngoscope Blade Size: 3 ETT Size (mm): 7.0 Cuff at minimum occlusion pressure: Yes Measured from: Teeth ETT to Teeth (cm): 21 Placement Verified by: CO2 detection, direct visualization and equal breath sounds Laryngoscopic view: Grade I - full view of glottis Rapid Sequence Induction (RSI): No Modified RSI: No Number of Attempts at Approach: 1 Atraumatic insertion. Dentition remained intact. SURGICAL PATHOLOGY Routine 04/03/2018 7:41 AM Results for this REQUEST CDT procedure are in the results section. FUSION, SPINE, 04/03/2018 7:30 AM Other secondary LUMBAR, POSTERIOR CDT scoliosis APPROACH Case Notes PT TBA ON 03/31, DR JACOBS ASSISTING, [place] PRO AXIS TABLE, STEALTH S7, OARM, AQUAMANTYS, BONE SCAPEL, MEDTRONIC INSTRUMENATION, EMG, MEPS, SSEPS Special Needs PT TBA ON 03/31, DR JACOBS CO-SURGEON, [place] PRO AXIS TABLE, STEALTH S7, OARM, AQUAMANTYS, BONE SCAPEL, MEDTRONIC INSTRUMENATION, EMG, MEPS, SSEPS FUSION, SPINE, LUMBAR, XLIF 04/03/2018 7:30 AM CDT Other secondary scoliosis Case Notes PT TBA ON 03/31, DR JACOBS ASSISTING, [place] PRO AXIS TABLE, STEALTH S7, OARM, AQUAMANTYS, BONE SCAPEL, MEDTRONIC INSTRUMENATION, EMG, MEPS, SSEPS Special Needs PT TBA ON 03/31, DR JACOBS CO-SURGEON, [place] PRO AXIS TABLE, STEALTH S7, OARM, AQUAMANTYS, BONE SCAPEL, MEDTRONIC INSTRUMENATION, EMG, MEPS, SSEPS POC GLUCOSE Routine 04/03/2018 5:47 AM CDT PARTIAL THROMBOPLASTIN TIME Routine 04/03/2018 4:28 AM CDT Results for this (PTT) procedure are in the results section. PROTHROMBIN TIME WITH INR Routine 04/03/2018 4:28 AM CDT HC COMPLETE BLD COUNT W/AUTO Routine 04/03/2018 4:28 AM CDT Results for this DIFF procedure are in the results section. POC GLUCOSE Routine 04/02/2018 5:30 PM CDT PREPARE RBC Timed 04/02/2018 3:00 PM CDT PREPARE RBC Routine 04/02/2018 3:00 PM CDT TYPE AND SCREEN Routine 04/02/2018 3:00 PM CDT XR ABDOMEN 1 VW PORTABLE Routine 04/02/2018 12:51 PM CDT POC GLUCOSE Routine 04/02/2018 11:39 AM CDT POC GLUCOSE Routine 04/02/2018 7:43 AM CDT HEMOGLOBIN Routine 04/02/2018 4:00 AM CDT POC GLUCOSE Routine 04/01/2018 9:57 PM CDT XR SPINE SCOLIOSIS 2-3 VIEWS Routine 04/01/2018 8:49 PM CDT POC GLUCOSE Routine 04/01/2018 5:02 PM CDT POC GLUCOSE Routine 04/01/2018 11:25 AM CDT POC GLUCOSE Routine 04/01/2018 8:22 AM CDT ZZESTIMATED GFR Routine 04/01/2018 3:20 AM CDT PROTHROMBIN TIME WITH INR Routine 04/01/2018 3:20 AM CDT PARTIAL THROMBOPLASTIN TIME Routine 04/01/2018 3:20 AM CDT Results for this (PTT) procedure are in the results section. HC COMPLETE BLD COUNT W/AUTO Routine 04/01/2018 3:20 AM CDT Results for this DIFF procedure are in the results section. BASIC METABOLIC PANEL Routine 04/01/2018 3:20 AM CDT POC GLUCOSE Routine 03/31/2018 6:[address] THORACIC SPINE WO Routine 03/31/2018 5:00 PM CDT Results for this CONTRAST procedure are in the results section. CT LUMBAR SPINE WO CONTRAST Routine 03/31/2018 4:59 PM CDT LACTIC ACID LEVEL Routine 03/31/2018 3:00 PM CDT LACTIC ACID, SYRINGE STAT 03/31/2018 1:34 PM CDT ARTERIAL BLOOD GAS STAT 03/31/2018 1:34 PM CDT SURGICAL PATHOLOGY REQUEST Routine 03/31/2018 1:15 PM CDT POC GLUCOSE Routine 03/31/2018 1:11 PM CDT LACTIC ACID, SYRINGE STAT 03/31/2018 12:19 PM CDT IONIZED CALCIUM, ARTERIAL STAT 03/31/2018 12:19 PM CDT GLUCOSE LEVEL, SYRINGE STAT 03/31/2018 12:19 PM CDT POTASSIUM, SYRINGE STAT 03/31/2018 12:19 PM CDT SODIUM LEVEL, SYRINGE STAT 03/31/2018 12:19 PM CDT HEMOGLOBIN, SYRINGE STAT 03/31/2018 12:19 PM CDT ARTERIAL BLOOD GAS, STAT 03/31/2018 12:19 PM CDT Results for this CORRECTED procedure are in the results section. MAGNESIUM LEVEL STAT 03/31/2018 12:05 PM CDT OR FL > 1 HOUR Routine 03/31/2018 12:00 PM CDT LACTIC ACID, SYRINGE STAT 03/31/2018 10:55 AM CDT IONIZED CALCIUM, ARTERIAL STAT 03/31/2018 10:55 AM CDT MAGNESIUM LEVEL STAT 03/31/2018 10:55 AM CDT GLUCOSE LEVEL, SYRINGE STAT 03/31/2018 10:55 AM CDT HEMOGLOBIN, SYRINGE STAT 03/31/2018 10:55 AM CDT POTASSIUM, SYRINGE STAT 03/31/2018 10:55 AM CDT SODIUM LEVEL, SYRINGE STAT 03/31/2018 10:55 AM CDT ARTERIAL BLOOD GAS, STAT 03/31/2018 10:55 AM CDT Results for this CORRECTED procedure are in the results section. ARTERIAL LINE Routine 03/31/2018 9:30 AM CDT Procedure Note - Stewart Mcdowell MD - 03/31/2018 9:30 AM CDT Arterial line Performed by: CRYSTAL SMART Authorized by: STEWART MCDOWELL Patient Location: OR Start Time: 03/31/2018 7:46 AM End Time: 03/31/2018 7:49 AM Staff: Anesthesiologist: STEWART MCDOWELL Resident/PIG BREEDER/AA: CRYSTAL SMART Performed by: Anesthesiologist Pre-procedure: patient identified, IV checked, site and side verified, risks and benefits discussed, procedure verified, surgical consent complete, patient position confirmed, monitors and equipment checked and pre-op evaluation complete MSBT: antiseptic used, all elements of maximal sterile barrier technique followed, hand hygiene performed, cap/gown used by other personnel and solutions labeled TIme Out Performed: 03/31/2018 7:45 AM Indications: Indications: multiple ABGs and hemodynamic monitoring Anesthesia: Anesthesia: General Procedure Details: Arterial Line placement: Placed post induction Line placement site: Radial Line placement side: Right Arterial line gauge: 20 G Number of attempts: 1 Ultrasound guidance used: No Post-procedure: Post-procedure: Sterile dressing applied Post procedure circulation, sensation, movement: Normal and unchanged Patient tolerance: Patient tolerated the procedure well with no immediate complications Notes: A-line placed by Dr. Mcdowell ND AN ELECTIVE ENDOTRACHEAL AIRWAY Routine 03/31/2018 8:53 AM CDT Procedure Note - Crystal Smart CRNA - 03/31/2018 8:53 AM CDT Airway Date/Time: 03/31/2018 7:47 AM Performed by: CRYSTAL SMART Authorized by: STEWART MCDOWELL Location: OR Urgency: Elective Difficult Airway: No Anesthesiologist: STEWART MCDOWELL Resident/PIG BREEDER/AA: CRYSTAL SMART Performed by: /YOSEF/AA Preoxygenated with 100% O2: Yes C-spine Precautions Maintained Throughout: No Mask Ventilation: Easy mask Final Airway Type: Endotracheal airway Final Endotracheal Airway: ETT Cuffed: Yes Technique Used: Video laryngoscopy Devices/Methods Used in Placement: Intubating stylet Insertion Site: Oral Laryngoscope Blade/Videolaryngoscope Blade Size: 3 ETT Size (mm): 7.0 Cuff at minimum occlusion pressure: Yes Measured from: Teeth ETT to Teeth (cm): 22 Placement Verified by: CO2 detection, direct visualization and equal breath sounds Laryngoscopic view: Grade I - full view of glottis Rapid Sequence Induction (RSI): No Modified RSI: No Number of Attempts at Approach: 2 First attempt with MAC 3 blade via DL unsuccessful - no view. Second attempt with Glidescope 3, easy intubation, grade 1 view, teeth/lips unchanged from preop condition LACTIC ACID, SYRINGE STAT 03/31/2018 8:30 AM Results for this CDT procedure are in the results section. MAGNESIUM LEVEL STAT 03/31/2018 8:30 AM Results for this CDT procedure are in the results section. GLUCOSE LEVEL, STAT 03/31/2018 8:30 AM Results for this SYRINGE CDT procedure are in the results section. HEMOGLOBIN, SYRINGE STAT 03/31/2018 8:30 AM Results for this CDT procedure are in the results section. IONIZED CALCIUM, STAT 03/31/2018 8:30 AM Results for this ARTERIAL CDT procedure are in the results section. POTASSIUM, SYRINGE STAT 03/31/2018 8:30 AM Results for this CDT procedure are in the results section. SODIUM LEVEL, STAT 03/31/2018 8:30 AM Results for this SYRINGE CDT procedure are in the results section. ARTERIAL BLOOD GAS, STAT 03/31/2018 8:30 AM Results for this CORRECTED CDT procedure are in the results section. FUSION, SPINE, 03/31/2018 7:30 AM Other secondary LUMBAR, XLIF CDT scoliosis Case Notes DR Gerry MAJANO TO DO EXPOSURE, C-ARM. AMSCO BED, NUVASIVE INSTRUMENATION, EMG, SSEP, MEPS Special Needs DR Gerry MAJANO TO DO EXPOSURE, C-ARM. AMSCO BED, NUVASIVE INSTRUMENATION, EMG, SSEP, MEPS POC GLUCOSE Routine 03/31/2018 6:54 Results for this AM CDT procedure are in the results section. XR CHEST 2 VW Routine 03/16/2018 5:24 Preop testing Results for this PM CDT procedure are in the results section. URINE CULTURE Routine 03/16/2018 4:50 Results for this PM CDT procedure are in the results section. ECG 12-LEAD Routine 03/16/2018 4:44 Preop testing Results for this PM CDT procedure are in the results section. ZZESTIMATED GFR Routine 03/16/2018 4:21 Results for this PM CDT procedure are in the results section. BASIC METABOLIC PANEL Routine 03/16/2018 4:21 Preop testing Results for this PM CDT procedure are in the results section. CBC HEMOGRAM Routine 03/16/2018 4:21 Preop testing Results for this PM CDT procedure are in the results section. URINALYSIS SCREEN AND Routine 03/16/2018 4:21 Preop testing Results for this MICROSCOPY, WITH PM CDT procedure are in REFLEX TO CULTURE the results section. HEPATIC FUNCTION PANEL Routine 03/16/2018 4:21 Preop testing Results for this PM CDT procedure are in the results section. PARTIAL THROMBOPLASTIN Routine 03/16/2018 4:21 Preop testing Results for this TIME (PTT) PM CDT procedure are in the results section. PROTHROMBIN TIME WITH Routine 03/16/2018 4:21 Preop testing Results for this INR PM CDT procedure are in the results section. TYPE AND SCREEN Routine 03/16/2018 4:21 Preop testing Results for this PM CDT procedure are in the results section. VITAMIN D 25 HYDROXY Routine 03/16/2018 4:21 Preop testing Results for this LEVEL PM CDT procedure are in the results section. PARATHYROID HORMONE Routine 03/16/2018 4:21 Preop testing Results for this PM CDT procedure are in the results section. PHOSPHORUS LEVEL Routine 03/16/2018 4:21 Preop testing Results for this PM CDT procedure are in the results section. MAGNESIUM LEVEL Routine 03/16/2018 4:21 Preop testing Results for this PM CDT procedure are in the results section. HEMOGLOBIN A1C Routine 03/16/2018 4:21 Preop testing Results for this PM CDT procedure are in the results section. BONE DENSITY Routine 02/04/2018 5:25 Age-related Results for this PERIPHERAL PM CDT osteoporosis with procedure are in current pathological the results fracture, initial section. encounter BONE DENSITY Routine 02/04/2018 5:25 Age-related Results for this PM CDT osteoporosis with procedure are in current pathological the results fracture, initial section. encounter after 12/01/2017 Results XR Spine Scoliosos 2-3 Views (10/12/2018 2:09 PM WATCH ADJUSTER)Only the most recent of3 resultswithin the time period is included. Narrative Performed At EXAMINATION:XR SPINE SCOLIOSIS 2-3 VIEWS HM [facility] CLINICAL HISTORY:M41.9 Scoliosisunspecified, SCOLIOSIS COMPARISON: 05/18/2018. IMPRESSION: 9 views of the spine are submitted per scoliosis protocol. Again noted is posterior fusion extending from T4 through the sacroiliac joints. Interbody fusions are again noted at L2-3, L4-5, and L5-S1. ACDF is again seen at C5-6. There is interval fracture of the left sacroiliac screw. Thoracic dextroscoliosis is similar to the comparison study, measuring 35 degrees. Cervicothoracic and lumbar levocurvature is again seen as well. The plumbline measures 3.7 cm left of the mid sacral line. The plumbline measures 5.8 cm ventral to the posterior superior corner of S1. A pump overlies the right abdomen. An intrathecal catheter terminates at the T11 level. There are bilateral hip arthroplasties. [id number] Procedure Note Interface, Radiology Results Incoming - 10/12/2018 2:47 PM WATCH ADJUSTER EXAMINATION: XR SPINE SCOLIOSIS 2-3 VIEWS CLINICAL HISTORY: M41.9 Scoliosis unspecified, SCOLIOSIS COMPARISON: 05/18/2018. IMPRESSION: 9 views of the spine are submitted per scoliosis protocol. Again noted is posterior fusion extending from T4 through the sacroiliac joints. Interbody fusions are again noted at L2-3, L4-5, and L5-S1. ACDF is again seen at C5-6. There is interval fracture of the left sacroiliac screw. Thoracic dextroscoliosis is similar to the comparison study, measuring 35 degrees. Cervicothoracic and lumbar levocurvature is again seen as well. The plumbline measures 3.7 cm left of the mid sacral line. The plumbline measures 5.8 cm ventral to the posterior superior corner of S1. A pump overlies the right abdomen. An intrathecal catheter terminates at the T11 level. There are bilateral hip arthroplasties. [id number] Performing Organization Address City/State/Zipcode Phone Number [facility] [address] [place] [address] Transfuse RBC (05/27/2018 5:55 PM CDT)Only the most recent of4 resultswithin the time period is included.POC glucose (04/24/2018 7:13 AM CDT)Only the most recent of87 resultswithin the time period is included. POC glucose 106 (H) 65 - 99 mg/dL [facility] DEPARTMENT OF PATHOLOGY Comment: AND GENOMIC MEDICINE [facility] Notified RN Meter ID: [id number] Student Finance Specialist: Vasile Holland Performing Organization Address City/State/Un[facility] Hospitalcode Phone Number [facility] AND [address] [place] [phone] [employer] MEDICINE Estimated GFR (04/20/2018 4:00 AM CDT)Only the most recent of22 resultswithin the time period is included. GFR Non Af Amer 74 mL/min/1.73 m2 [facility] DEPARTMENT OF PATHOLOGY AND GENOMIC MEDICINE GFR Af Amer 90 mL/min/1.73 m2 [facility] DEPARTMENT OF Comment: PATHOLOGY AND [facility] Chronic kidney disease: <60 mL/min/1.73m2 MEDICINE Kidney failure: <15 mL/min/1.73m2 The estimated GFR is calculated from the IDMS-traceable Modification of Diet in Renal Disease Equation. The accuracy of the calculation is poor when the creatinine is normal. Calculated values >90 mL/min/1.73m2 are not reported. This equation has not been validated in children (<18 years), women, the elderly (>70 years), or ethnic groups other than Caucasians and Americans. Specimen Plasma specimen Performing Organization Address City/[facility]/Unm Hospitalcode Phone Number [facility] AND [address] [place] [phone] [facility] Basic metabolic panel (04/20/2018 4:00 AM CDT)Only the most recent of18 resultswithin the time period is included. Sodium 139 135 - 148 mEq/L [facility] DEPARTMENT OF PATHOLOGY AND GENOMIC MEDICINE Potassium 3.9 3.5 - 5.0 mEq/L [facility] DEPARTMENT OF PATHOLOGY AND GENOMIC MEDICINE Chloride 100 98 - 112 mEq/L [facility] DEPARTMENT OF PATHOLOGY AND GENOMIC MEDICINE CO2 27 24 - 31 mEq/L [facility] DEPARTMENT OF PATHOLOGY AND GENOMIC MEDICINE Anion gap 12@ANIO 7 - 15 mEq/L [facility] DEPARTMENT OF PATHOLOGY AND GENOMIC MEDICINE BUN 9 6 - 20 mg/dL [facility] DEPARTMENT OF PATHOLOGY AND GENOMIC MEDICINE Creatinine 0.8 0.5 - 0.9 mg/dL [facility] DEPARTMENT OF PATHOLOGY AND GENOMIC MEDICINE Glucose 102 (H) 65 - 99 mg/dL [facility] DEPARTMENT OF PATHOLOGY AND GENOMIC MEDICINE Calcium 9.1 8.3 - 10.2 mg/dL [facility] DEPARTMENT OF PATHOLOGY AND GENOMIC MEDICINE Specimen Plasma specimen Performing Organization Address City/State/Zipcode Phone Number [facility] DEPARTMENT OF PATHOLOGY AND [address] [place] [address] GENOMIC MEDICINE Smear review (04/18/2018 5:00 AM CDT)Only the most recent of5 resultswithin the time period is included. Platelet slide review Katie adequate [facility] DEPARTMENT OF PATHOLOGY AND GENOMIC MEDICINE Anisocytosis Moderate [facility] DEPARTMENT OF PATHOLOGY AND GENOMIC MEDICINE Polychromasia Moderate [facility] DEPARTMENT OF PATHOLOGY AND GENOMIC MEDICINE Ovalocytes Moderate [facility] DEPARTMENT OF PATHOLOGY AND GENOMIC MEDICINE Enlarged platelets Moderate (A) [facility] DEPARTMENT OF PATHOLOGY AND GENOMIC MEDICINE Performing Organization Address City/State/Zipcode Phone Number [facility] DEPARTMENT OF PATHOLOGY AND [address] [place] [phone] GENOMIC MEDICINE CBC with platelet and differential (04/18/2018 5:00 AM CDT)Only the most recent of15 resultswithin the time period is included. WBC 4.06 (L) 4.50 - 11.00 k/uL [facility] DEPARTMENT OF PATHOLOGY AND GENOMIC MEDICINE RBC 2.73 (L) 4.20 - 5.50 m/uL [facility] DEPARTMENT OF PATHOLOGY AND GENOMIC MEDICINE HGB 8.4 (L) 12.0 - 16.0 g/dL [facility] DEPARTMENT OF PATHOLOGY AND GENOMIC MEDICINE HCT 27.1 (L) 37.0 - 47.0 % [facility] DEPARTMENT OF PATHOLOGY AND GENOMIC MEDICINE MCV 99.3 82.0 - 100.0 fL [facility] DEPARTMENT OF PATHOLOGY AND GENOMIC MEDICINE MCH 30.8 27.0 - 34.0 pg [facility] DEPARTMENT OF PATHOLOGY AND GENOMIC MEDICINE MCHC 31.0 31.0 - 37.0 g/dL [facility] DEPARTMENT OF PATHOLOGY AND GENOMIC MEDICINE RDW - SD 65.3 (H) 37.0 - 55.0 fL [facility] DEPARTMENT OF PATHOLOGY AND GENOMIC MEDICINE MPV 11.2 8.8 - 13.2 fL [facility] DEPARTMENT OF PATHOLOGY AND GENOMIC MEDICINE Platelet count 151 150 - 400 k/uL [facility] DEPARTMENT OF PATHOLOGY AND GENOMIC MEDICINE Nucleated RBC 0.00 /100 WBC [facility] DEPARTMENT OF PATHOLOGY AND GENOMIC MEDICINE Neutrophils 44.2 39.0 - 69.0 % [facility] DEPARTMENT OF PATHOLOGY AND GENOMIC MEDICINE Lymphocytes 39.9 25.0 - 45.0 % [facility] DEPARTMENT OF PATHOLOGY AND GENOMIC MEDICINE Monocytes 13.8 (H) 0.0 - 10.0 % [facility] DEPARTMENT OF PATHOLOGY AND GENOMIC MEDICINE Eosinophils 1.2 0.0 - 5.0 % [facility] DEPARTMENT OF PATHOLOGY AND GENOMIC MEDICINE Basophils 0.2 0.0 - 1.0 % [facility] DEPARTMENT OF PATHOLOGY AND GENOMIC MEDICINE Immature granulocytes 0.7Comment: 0.0 - 1.0 % [facility] DEPARTMENT OF "Immature PATHOLOGY AND GENOMIC granulocytes" MEDICINE (promyelocytes, myelocytes, metamyelocytes) Specimen Blood Performing Organization Address City/[facility] Hospitalcode Phone Number [facility] DEPARTMENT OF PATHOLOGY AND [address] [place] [address] Thyroid stimulating hormone (04/18/2018 5:00 AM CDT) TSH 2.00 0.27 - 4.20 uIU/mL [facility] DEPARTMENT OF PATHOLOGY AND GENOMIC MEDICINE Specimen Plasma specimen Performing Organization Address City/[facility] Hospitalcome Phone Number [facility] DEPARTMENT OF PATHOLOGY AND [address] [place], [place] [phone] [facility] Urinalysis screen and microscopy, with reflex to culture (04/17/2018 9:16 PM CDT)Only the most recent of2 resultswithin the time period is included. Specimen site Clean catch [facility] DEPARTMENT OF PATHOLOGY AND GENOMIC MEDICINE Color, UA Straw [facility] DEPARTMENT OF PATHOLOGY AND GENOMIC MEDICINE Appearance, UA Clear [facility] DEPARTMENT OF PATHOLOGY AND GENOMIC MEDICINE Specific gravity, UA 1.006 1.001 - 1.035 [facility] DEPARTMENT OF PATHOLOGY AND GENOMIC MEDICINE pH, UA 6.0 5.0 - 8.5 [facility] DEPARTMENT OF PATHOLOGY AND GENOMIC MEDICINE Protein, UA Negative Negative [facility] DEPARTMENT OF PATHOLOGY AND GENOMIC MEDICINE Glucose, UA Negative Negative [facility] DEPARTMENT OF PATHOLOGY AND GENOMIC MEDICINE Ketones, UA Negative Negative [facility] DEPARTMENT OF PATHOLOGY AND GENOMIC MEDICINE Bilirubin, UA Negative Negative [facility] DEPARTMENT OF PATHOLOGY AND GENOMIC MEDICINE Blood, UA Negative Negative [facility] DEPARTMENT OF PATHOLOGY AND GENOMIC MEDICINE Nitrite, UA Negative Negative [facility] DEPARTMENT OF PATHOLOGY AND GENOMIC MEDICINE Urobilinogen, UA <2.0 <2.0 [facility] DEPARTMENT OF PATHOLOGY AND GENOMIC MEDICINE Leukocyte esterase, UA Negative Negative [facility] DEPARTMENT OF PATHOLOGY AND GENOMIC MEDICINE Epithelial cells, UA 5 /HPF [facility] DEPARTMENT OF PATHOLOGY AND GENOMIC MEDICINE WBC, UA 1 0 - 4 /HPF [facility] DEPARTMENT OF PATHOLOGY AND GENOMIC MEDICINE RBC, UA None seen 0 - 5 /HPF [facility] DEPARTMENT OF PATHOLOGY AND GENOMIC MEDICINE Bacteria, UA Few None seen [facility] DEPARTMENT OF PATHOLOGY AND GENOMIC MEDICINE Yeast, UA None seen [facility] DEPARTMENT OF PATHOLOGY AND GENOMIC MEDICINE Yeast with pseudohyphae, UA None seen [facility] DEPARTMENT OF PATHOLOGY AND GENOMIC MEDICINE Specimen Urine Performing Organization Address [facility] Hospitalcode Phone Number [facility] DEPARTMENT OF PATHOLOGY AND [address] [place] [address] [facility] Urine culture (04/17/2018 9:16 PM CDT)Only the most recent of2 resultswithin the time period is included. Urine culture SEE COMMENTComment: Bacteriuria [facility] DEPARTMENT OF PATHOLOGY screen negative. AND GENOMIC MEDICINE Performing Organization Address [facility] Hospitalcode Phone Number [facility] DEPARTMENT OF PATHOLOGY AND [address] [place] [phone] [facility] NM Lung Ventilation Perfusion (04/17/2018 8:29 PM CDT) Narrative Performed At CLINICAL HISTORY: PE suspectedlow pretest prob, Taqchycardia unknow [facility] etiology- S P Spine sx TECHNIQUE: The patient breathed 15-20 mCi of xenon-133 gas through a closed ventilation system while dynamic imaging of the lungs was performed in the posterior and anterior projections. The patient was then injected with 5 mCi of [id number] intravenously, followed by imaging of the lungs in anterior, posterior, and oblique projections. FINDINGS: Small perfusion defect left upper lobe likely related to aortic arch. Mildly reduced perfusion and ventilation right upper lobe posteriorly. IMPRESSION: Low Probability for pulmonary embolism. [facility] Procedure Note Interface, Radiology Results Incoming - 04/17/2018 8:35 PM CDT CLINICAL HISTORY: PE suspected low pretest prob, Taqchycardia unknow etiology- S P Spine sx TECHNIQUE: The patient breathed 15-20 mCi of xenon-133 gas through a closed ventilation system while dynamic imaging of the lungs was performed in the posterior and anterior projections. The patient was then injected with 5 mCi of [id number] intravenously, followed by imaging of the lungs in anterior, posterior, and oblique projections. FINDINGS: Small perfusion defect left upper lobe likely related to aortic arch. Mildly reduced perfusion and ventilation right upper lobe posteriorly. IMPRESSION: Low Probability for pulmonary embolism. [facility] Performing Organization Address [facility]/Zipcode Phone Number [facility] [address] [place] [address] XR Chest 1 Vw Portable (04/17/2018 5:11 PM CDT)Only the most recent of4 resultswithin the time period is included. Narrative Performed At EXAMINATION: Portable chest x-ray [facility] CLINICAL HISTORY:sob COMPARISON: Most recent available chest x-ray. Heart size is enlarged. A PICC line is located in the superior vena cava. There are transpedicular screws and stabilizing bars throughout the dorsal lumbar spine scoliotic curvature. There is internal interbody fixation of the lower cervical spine IMPRESSION: 1.There are decreased lung volumes with crowding of blood vessels in the infrahilar regions. There are no focal infiltrates. 2.Vascular congestion has improved 3.Mild retrocardiac atelectasis and a trace of pleural fluid. 4.No pneumothorax. [id number] Procedure Note Hm Interface, Radiology Results Incoming - 04/17/2018 5:23 PM CDT EXAMINATION: Portable chest x-ray CLINICAL HISTORY: sob COMPARISON: Most recent available chest x-ray. Heart size is enlarged. A PICC line is located in the superior vena cava. There are transpedicular screws and stabilizing bars throughout the dorsal lumbar spine scoliotic curvature. There is internal interbody fixation of the lower cervical spine IMPRESSION: 1. There are decreased lung volumes with crowding of blood vessels in the infrahilar regions. There are no focal infiltrates. 2. Vascular congestion has improved 3. Mild retrocardiac atelectasis and a trace of pleural fluid. 4. No pneumothorax. [id number] Performing Organization Address City/State/Zipcode Phone Number [facility] [address] [place] [address] Comprehensive metabolic panel (04/17/2018 12:55 PM CDT)Only the most recent of4 resultswithin the time period is included. Sodium 140 135 - 148 mEq/L [facility] DEPARTMENT OF PATHOLOGY AND GENOMIC MEDICINE Potassium 3.3 (L) 3.5 - 5.0 mEq/L [facility] DEPARTMENT OF PATHOLOGY AND GENOMIC MEDICINE Chloride 101 98 - 112 mEq/L [facility] DEPARTMENT OF PATHOLOGY AND GENOMIC MEDICINE CO2 25 24 - 31 mEq/L [facility] DEPARTMENT OF PATHOLOGY AND GENOMIC MEDICINE Anion gap 14@ANIO 7 - 15 mEq/L [facility] DEPARTMENT OF PATHOLOGY AND GENOMIC MEDICINE BUN 7 6 - 20 mg/dL [facility] DEPARTMENT OF PATHOLOGY AND GENOMIC MEDICINE Creatinine 0.7 0.5 - 0.9 mg/dL [facility] DEPARTMENT OF PATHOLOGY AND GENOMIC MEDICINE Glucose 125 (H) 65 - 99 mg/dL [facility] DEPARTMENT OF PATHOLOGY AND GENOMIC MEDICINE Calcium 8.5 8.3 - 10.2 mg/dL [facility] DEPARTMENT OF PATHOLOGY AND GENOMIC MEDICINE Protein 6.9 6.3 - 8.3 g/dL [facility] DEPARTMENT OF Comment: PATHOLOGY AND GENOMIC [place] 4.6-7.0 g/dL MEDICINE 1 week 4.4-7.6 g/dL 7 months-1year5.1-7.3 g/dL 1-2 years5.6-7.5 g/dL >3 years6.0-8.0 g/dL 18-150 6.3-8.3 g/dL Albumin 2.4 (L) 3.5 - 5.0 g/dL [facility] DEPARTMENT OF PATHOLOGY AND GENOMIC MEDICINE A/G ratio 0.5 (L) 0.7 - 3.8 [facility] DEPARTMENT OF PATHOLOGY AND GENOMIC MEDICINE Alkaline phosphatase 95 35 - 104 U/L [facility] DEPARTMENT OF PATHOLOGY AND GENOMIC MEDICINE AST 23 10 - 35 U/L [facility] DEPARTMENT OF PATHOLOGY AND GENOMIC MEDICINE ALT 32 5 - 50 U/L [facility] DEPARTMENT OF PATHOLOGY AND GENOMIC MEDICINE Total bilirubin <0.2 0.0 - 1.2 mg/dL [facility] DEPARTMENT OF PATHOLOGY AND GENOMIC [facility] Specimen Plasma specimen Performing Organization Address City/[facility] Hospitalcode Phone Number [facility] DEPARTMENT OF PATHOLOGY AND [address] [place] [phone] [facility] Hemoglobin A1c (04/15/2018 7:02 AM CDT)Only the most recent of2 resultswithin the time period is included. Hemoglobin A1C 5.5 4.0 - 5.6 % [facility] DEPARTMENT OF PATHOLOGY Comment: [facility] HbA1c cutoffs for diagnosing diabetes: 4.0% - 5.6%=normal 5.7% - 6.4%=increased risk for diabetes (prediabetes) >=6.5%=diabetes Goals for glycemic control (ADA 2016) < 7.0%Target for non adults with diabetes. More or less stringent targets may be appropriate for individual patients. <7.5% Target for Children and adolescents with type 1 diabetes. Specimen Blood Performing Organization Address City/State/Zipcode Phone Number [facility] DEPARTMENT OF PATHOLOGY AND [address] [place] [phone] [facility] Urinalysis, automated with microscopy (04/14/2018 8:30 PM CDT) Color, UA Straw [facility] DEPARTMENT OF PATHOLOGY AND GENOMIC MEDICINE Appearance, UA Clear [facility] DEPARTMENT OF PATHOLOGY AND GENOMIC MEDICINE Specific gravity, UA 1.006 1.001 - 1.035 [facility] DEPARTMENT OF PATHOLOGY AND GENOMIC MEDICINE pH, UA 6.0 5.0 - 8.5 [facility] DEPARTMENT OF PATHOLOGY AND GENOMIC MEDICINE Protein, UA Negative Negative [facility] DEPARTMENT OF PATHOLOGY AND GENOMIC MEDICINE Glucose, UA Negative Negative [facility] DEPARTMENT OF PATHOLOGY AND GENOMIC MEDICINE Ketones, UA Negative Negative [facility] DEPARTMENT OF PATHOLOGY AND GENOMIC MEDICINE Bilirubin, UA Negative Negative [facility] DEPARTMENT OF PATHOLOGY AND GENOMIC MEDICINE Blood, UA Negative Negative [facility] DEPARTMENT OF PATHOLOGY AND GENOMIC MEDICINE Nitrite, UA Negative Negative [facility] DEPARTMENT OF PATHOLOGY AND GENOMIC MEDICINE Urobilinogen, UA <2.0 <2.0 [facility] DEPARTMENT OF PATHOLOGY AND GENOMIC MEDICINE Leukocyte esterase, UA Negative Negative [facility] DEPARTMENT OF PATHOLOGY AND GENOMIC MEDICINE Epithelial cells, UA 6 /HPF [facility] DEPARTMENT OF PATHOLOGY AND GENOMIC MEDICINE WBC, UA None seen 0 - 4 /HPF [facility] DEPARTMENT OF PATHOLOGY AND GENOMIC MEDICINE RBC, UA None seen 0 - 5 /HPF [facility] DEPARTMENT OF PATHOLOGY AND GENOMIC MEDICINE Bacteria, UA None seen None seen [facility] DEPARTMENT OF PATHOLOGY AND GENOMIC MEDICINE Yeast, UA None seen [facility] DEPARTMENT OF PATHOLOGY AND GENOMIC MEDICINE Yeast with pseudohyphae, UA None seen [facility] DEPARTMENT OF PATHOLOGY AND GENOMIC MEDICINE Specimen Urine Performing Organization Address City/[facility]code Phone Number [facility] DEPARTMENT OF PATHOLOGY AND [address] [place], [place] [phone] [facility] MEDICINE Prealbumin level (04/14/2018 7:45 PM CDT) Prealbumin 15 (L) 16 - 32 mg/dL [facility] DEPARTMENT OF PATHOLOGY AND GENOMIC MEDICINE Specimen Serum Performing Organization Address City/[facility] Phone Number [facility] DEPARTMENT OF PATHOLOGY AND [address] [place] [phone] [place] [address] Phosphorus level (04/14/2018 7:45 PM CDT)Only the most recent of7 resultswithin the time period is included. Phosphorus 3.0 2.4 - 4.5 mg/dL [facility] DEPARTMENT OF PATHOLOGY AND GENOMIC MEDICINE Specimen Plasma specimen Performing Organization Address City/[facility] Phone Number [facility] DEPARTMENT OF PATHOLOGY AND [address] [place] [phone] [facility] Magnesium level (04/14/2018 7:45 PM CDT)Only the most recent of12 resultswithin the time period is included. Magnesium 2.2 1.6 - 2.6 mg/dL [facility] DEPARTMENT OF PATHOLOGY AND GENOMIC MEDICINE Specimen Plasma specimen Performing Organization Address City/[facility]come Phone Number [facility] DEPARTMENT OF PATHOLOGY AND [address] [place] [phone] [place] [address] MEDICINE Potassium level (04/14/2018 8:22 AM CDT)Only the most recent of3 resultswithin the time period is included. Potassium 3.5 3.5 - 5.0 mEq/L [facility] DEPARTMENT OF PATHOLOGY AND GENOMIC MEDICINE Specimen Plasma specimen Performing Organization Address [facility] Phone Number [facility] DEPARTMENT OF PATHOLOGY AND [address] [place], [place] [phone] [facility] MEDICINE CBC hemogram (04/10/2018 3:25 AM CDT)Only the most recent of3 resultswithin the time period is included. WBC 5.93Comment: WBC was 4.50 - 11.00 k/uL [facility] DEPARTMENT OF corrected for NRBCs PATHOLOGY AND GENOMIC MEDICINE RBC 2.58 (L) 4.20 - 5.50 m/uL [facility] DEPARTMENT OF PATHOLOGY AND GENOMIC MEDICINE HGB 8.0 (L) 12.0 - 16.0 g/dL [facility] DEPARTMENT OF PATHOLOGY AND GENOMIC MEDICINE HCT 24.7 (L) 37.0 - 47.0 % [facility] DEPARTMENT OF PATHOLOGY AND GENOMIC MEDICINE MCV 95.7 82.0 - 100.0 fL [facility] DEPARTMENT OF PATHOLOGY AND GENOMIC MEDICINE MCH 31.0 27.0 - 34.0 pg [facility] DEPARTMENT OF PATHOLOGY AND GENOMIC MEDICINE MCHC 32.4 31.0 - 37.0 g/dL [facility] DEPARTMENT OF PATHOLOGY AND GENOMIC MEDICINE RDW - SD 60.1 (H) 37.0 - 55.0 fL [facility] DEPARTMENT OF PATHOLOGY AND GENOMIC MEDICINE MPV 11.1 8.8 - 13.2 fL [facility] DEPARTMENT OF PATHOLOGY AND GENOMIC MEDICINE Platelet count 147 (L) 150 - 400 k/uL [facility] DEPARTMENT OF PATHOLOGY AND GENOMIC MEDICINE Nucleated RBC 1.00 /100 WBC [facility] DEPARTMENT OF PATHOLOGY AND GENOMIC MEDICINE Performing Organization Address [facility] Phone Number [facility] DEPARTMENT OF PATHOLOGY AND [address] [place], [place] [phone] GENOMIC MEDICINE Vancomycin level, trough (04/09/2018 9:26 AM CDT) Vancomycin, trough 18.9 10.0 - 20.0 ug/mL [facility] DEPARTMENT OF Comment: PATHOLOGY AND GENOMIC Therapeutic Ranges: MEDICINE Peak 30.0 - 40.0 ug/mL Hjnyei25.0 - 20.0 ug/mL Specimen Serum Performing Organization Address [facility] Phone Number [facility] DEPARTMENT OF PATHOLOGY AND [address] [place] [phone] [facility] MEDICINE ECG 12 lead (04/08/2018 3:34 PM CDT)Only the most recent of4 resultswithin the time period is included. Ventricular rate 79 [facility] MUSE Atrial rate 79 [facility] MUSE ND interval 126 [facility] QRSD interval 82 [facility] MUSE QT interval 500 [facility] M[facility] QTC interval 573 [facility] P axis 1 20 [facility] QRS axis 1 34 [facility] M[facility] T wave axis 25 [facility] MUSE EKG impression Normal sinus rhythm-Possible Inferior infarct (cited on or before 03-APR-2018)-Nonspecific T wave abnormality-Prolonged QT-Abnormal ECG-In automated comparison with ECG of 05-APR-2018 14:40,-QT has lm [facility] MUSE thened- Performing Organization Address [facility] Phone Number [facility] MUSE [address] [place] [phone] Troponin (04/08/2018 3:04 PM CDT) Troponin <0.30 0.00 - 0.30 ng/mL [facility] DEPARTMENT OF PATHOLOGY Comment: AND GENOMIC MEDICINE 0.30 - 1.49 ng/mlMay indicate increased risk of acute coronary syndrome. >=1.5 ng/mlConsistent with acute myocardial infarction. The diagnostic value of a single normal or non-diagnostic result is questionable.Serial samples at 2-6 hour intervals are required to rule out acute myocardial injury. Specimen Plasma specimen Performing Organization Address [facility] Phone Number [facility] DEPARTMENT OF PATHOLOGY AND [address] [place] [phone] [employer] MEDICINE Vancomycin level, random (04/07/2018 5:07 PM CDT) Vancomycin, random 7.4 ug/mL [facility] DEPARTMENT OF PATHOLOGY AND GENOMIC MEDICINE Specimen Serum Performing Organization Address [facility] Phone Number [facility] DEPARTMENT OF PATHOLOGY AND [address] [place] [phone] [facility] Ionized calcium (04/07/2018 5:12 AM CDT)Only the most recent of2 resultswithin the time period is included. pH 7.44 [facility] DEPARTMENT OF PATHOLOGY AND GENOMIC MEDICINE Ionized calcium 1.06 (L) 1.11 - 1.32 mmol/L [facility] DEPARTMENT OF PATHOLOGY AND GENOMIC MEDICINE Specimen Plasma specimen Performing Organization Address [facility] Phone Number [facility] DEPARTMENT OF PATHOLOGY AND [address] [place] [phone] [facility] XR Picc Chest Portable (04/06/2018 11:18 AM CDT) Narrative Performed At EXAMINATION:XR PICC CHEST PORTABLE [facility] CLINICAL HISTORY:M41.9 Scoliosisunspecified, Multiple IV meds COMPARISON:Chest x-ray 04/05/2018 IMPRESSION: Single frontal view reveals interval placement of a left-sided PICC line with tip overlying the SVC. The remainder of the examination is unchanged. [id number] Procedure Note Interface, Radiology Results Incoming - 04/06/2018 11:23 AM CDT EXAMINATION: XR PICC CHEST PORTABLE CLINICAL HISTORY: M41.9 Scoliosis unspecified, Multiple IV meds COMPARISON: Chest x-ray 04/05/2018 IMPRESSION: Single frontal view reveals interval placement of a left-sided PICC line with tip overlying the SVC. The remainder of the examination is unchanged. [id number] Performing Organization Address [facility] Phone Number [facility] [address] [place] [address] PICC INSERTION (04/06/2018 10:34 AM CDT) Narrative Performed At Bere Salazar RN 04/06/2018 10:43 AM PICC insertion Date/Time: 04/06/2018 10:34 AM Performed by: ZEUS CHENG Authorized by: BRANDT THOMAS Consent: Consent obtained:Verbal Consent given by:Patient Risks discussed: arterial puncture, incorrect placement, nerve damage, infection, bleeding, deep vein thrombus and superficial thrombus Alternatives discussed:No treatment, alternative treatment, delayed treatment, observation and referral [place] protocol: Procedure explained and questions answered to patient or proxy's satisfaction: yes Relevant documents present and verified: yes Test results available and properly labeled: yes Imaging studies available: yes Required blood products, implants, devices, and special equipment available: yes Site/side marked: yes Immediately prior to procedure, a time out was called: yes Patient identity confirmed:Verbally with patient, arm band and hospital-assigned identification number Pre-procedure details: Hand hygiene: Hand hygiene performed prior to insertion Sterile barrier technique: All elements of maximal sterile technique followed Skin preparation:ChloraPrep Skin preparation agent: Skin preparation agent completely dried prior to procedure Anesthesia (see MAR for exact dosages): Anesthesia method:Local infiltration Local anesthetic:Lidocaine 1% w/o epi PICC Line Placement Details (Will create an LDA): Patient position:Flat Vessel Size (mm):3 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 IV 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 Location:Left basilic Device Type:Non-valved Catheter size:5 Fr PICC Characteristics: Catheter Brand:RideAparto picc External Catheter Length (cm):0 Internal Catheter Length (cm):44 Total Catheter Length (cm):44 Catheter Lot Number:[id number] Catheter Expiration Date:06/10/1920 Procedure Details: Landmarks identified: yes Ultrasound guidance: yes Sterile ultrasound techniques: Sterile gel and sterile probe covers were used Number of attempts:1 Number of PICC kits used during procedure:1 Purpose of procedure:PICC Placement Successful PICC Placement: Yes Patency/Placement:Flushes without difficulty, flushed with 10 mL normal saline, x-ray placement verified, injection cap placed and positive blood return PICC placed utlizing ultrasound-guided Modified Seldinger Technique: Yes Dressing/Securement:Antimicrobial dressing dry and intact, catheter securement device and antimicrobial dressing applied Blood Loss Amount:Less than 20 mL Post-Procedure Details: Post-procedure:Dressing applied Tip placement confirmed by chest x-ray: Yes Patient tolerance of procedure:Tolerated well, no immediate complications Intraoperative monitoring (04/06/2018 7:24 AM CDT) Narrative Performed At Prepare RBC, 1 Units (04/06/2018 6:40 AM CDT)Only the most recent of3 resultswithin the time period is included. Product name Apheresis Red Cell AS3 #1 LR [facility] DEPARTMENT OF PATHOLOGY AND GENOMIC MEDICINE Unit number [id number] [facility] DEPARTMENT OF PATHOLOGY AND GENOMIC MEDICINE Product code [id number] [facility] DEPARTMENT OF PATHOLOGY AND GENOMIC MEDICINE Dispense status Transfused [facility] DEPARTMENT OF PATHOLOGY AND GENOMIC MEDICINE Blood expiration date [id number] [facility] DEPARTMENT OF PATHOLOGY AND GENOMIC MEDICINE Blood type code 5100 [facility] DEPARTMENT OF PATHOLOGY AND GENOMIC MEDICINE Blood type O POSITIVE [facility] DEPARTMENT OF PATHOLOGY AND GENOMIC MEDICINE Performing Organization Address City/[facility]/Zipcode Phone Number [facility] DEPARTMENT OF PATHOLOGY AND [address] [place] [phone] GENOMIC MEDICINE Type and screen (04/06/2018 6:40 AM CDT)Only the most recent of3 resultswithin the time period is included. ABO grouping O [facility] DEPARTMENT OF PATHOLOGY AND GENOMIC MEDICINE Rh type POS [facility] DEPARTMENT OF PATHOLOGY AND GENOMIC MEDICINE Antibody screen (gel) NEG [facility] DEPARTMENT OF PATHOLOGY AND GENOMIC MEDICINE Specimen Blood Performing Organization Address City/[facility] Phone Number [facility] DEPARTMENT OF PATHOLOGY AND [address] [place], [place] [phone] GENOMIC MEDICINE US Hepatic (04/05/2018 4:00 PM CDT) Narrative Performed At EXAMINATION:US HEPATIC [facility] CLINICAL HISTORY:Transaminitis COMPARISON:CT chest with contrast from 04/05/2018 IMPRESSION: Liver: The liver is diffusely echogenic suggesting underlying fatty infiltration. No intrahepatic biliary duct dilatation. No hepatic masses are seen, however, evaluation is limited due to the diffuse increased echogenicity. Liver is also noted to be enlarged measuring 19 cm in greatest craniocaudal dimension. Portal vein: The portal vein is normal in size and demonstrates normal hepatopedal flow. The diameter of the portal vein measures 1.1 cm. Gallbladder: The gallbladder is not visualized. Based on prior CT chest, the patient is status post cholecystectomy. Common bile duct: 0.9 cm. This is likely within normal limits given patient's history of cholecystectomy. No ascites. [id number] Procedure Note Hm Interface, Radiology Results Incoming - 04/05/2018 4:27 PM CDT EXAMINATION: US HEPATIC CLINICAL HISTORY: Transaminitis COMPARISON: CT chest with contrast from 04/05/2018 IMPRESSION: Liver: The liver is diffusely echogenic suggesting underlying fatty infiltration. No intrahepatic biliary duct dilatation. No hepatic masses are seen, however, evaluation is limited due to the diffuse increased echogenicity. Liver is also noted to be enlarged measuring 19 cm in greatest craniocaudal dimension. Portal vein: The portal vein is normal in size and demonstrates normal hepatopedal flow. The diameter of the portal vein measures 1.1 cm. Gallbladder: The gallbladder is not visualized. Based on prior CT chest, the patient is status post cholecystectomy. Common bile duct: 0.9 cm. This is likely within normal limits given patient's history of cholecystectomy. No ascites. [facility]-[id number] Performing Organization Address [facility] Phone Number [facility] [address] [place] [address] XR Abdomen 1 Vw Portable (04/05/2018 12:38 PM CDT)Only the most recent of2 resultswithin the time period is included. Narrative Performed At EXAMINATION:XR ABDOMEN 1 VW PORTABLE [facility] CLINICAL HISTORY:Vomiting COMPARISON:None. FINDINGS: Extensive postoperative changes in the spine and hips. Stimulator device overlies the right lower quadrant. A catheter overlies the left flank. There is gas in the colon. No disproportionate dilatation of small bowel loops is seen. IMPRESSION: As above [id number] Procedure Note Hm Interface, Radiology Results Incoming - 04/05/2018 12:43 PM CDT EXAMINATION: XR ABDOMEN 1 VW PORTABLE CLINICAL HISTORY: Vomiting COMPARISON: None. FINDINGS: Extensive postoperative changes in the spine and hips. Stimulator device overlies the right lower quadrant. A catheter overlies the left flank. There is gas in the colon. No disproportionate dilatation of small bowel loops is seen. IMPRESSION: As above [id number] Performing Organization Address [facility] Phone Number [facility] [address] [place] [address] Arterial blood gas (04/05/2018 10:20 AM CDT)Only the most recent of7 resultswithin the time period is included. pH, arterial 7.51 (H) 7.35 - 7.45 [facility] DEPARTMENT OF PATHOLOGY AND GENOMIC MEDICINE pCO2, arterial 31 (L) 35 - 45 mmHg [facility] DEPARTMENT OF PATHOLOGY AND GENOMIC MEDICINE pO2, arterial 163 (H) 80 - 90 mmHg [facility] DEPARTMENT OF PATHOLOGY AND GENOMIC MEDICINE Bicarbonate, arterial 24.3 21.0 - 28.0 mmol/L [facility] DEPARTMENT OF PATHOLOGY AND GENOMIC MEDICINE Base excess, arterial 2 -2 - 2 mEq/L [facility] DEPARTMENT OF PATHOLOGY AND GENOMIC MEDICINE O2 saturation, arterial 100 95 - 100 % [facility] DEPARTMENT OF PATHOLOGY AND GENOMIC MEDICINE Specimen Blood Performing Organization Address City/State/Zipcode Phone Number [facility] DEPARTMENT OF PATHOLOGY AND [address] [place] [phone] GENOMIC MEDICINE Us duplex venous lower extremity (04/05/2018 8:28 AM CDT) Narrative Performed At [facility] Vascular Ultrasound Laboratory Lower Extremity Venous Report [address] [facility], [facility] [address], [place] [id number] Pat.Name:MARINA MESSER.ID:[id number] .Date: 04/05/2018 Refer.MD:BRANDT THOMAS MD Exam Time: 8:02:00 AMStudy Type:LE Venous Height:67inWeight: 259lb BSA: 2.26 m2 DOBAge:1960,57Y Sex: FEMALESonogrphr: VALENTINE Agarwal, DIXON Pat. Stat.:Inpatient Room:[place] [address] TapeVol: SB, CPT - 4: 28776 Echo Event ID:[id number] Order ID:[id number] Reason for Study:Tachypnea, evaluate for DVT. S/p stage II L2-3, L4-5 lateral interbody fusion, T4-pelvis posterior fusion with instrumentation Procedures:Colorflow, Grayscale/2D, Pulsed wave Doppler Race:C SUMMARY: DUPLEX SCAN OBSERVATIONS Deep VeinsSuperficial Veins RightLeft RightLeft GSV (prox) NormalNormal CFV Normal Normal (above knee) Femoral Normal Normal GSV (dist) Not Visualized Not Visualized Profunda Normal Normal (below knee) Popliteal Normal Normal PT (prox) Normal NormalSSV Not Visualized Not Visualized PT (dist) Normal Normal Peroneal Normal Normal RIGHT:There is normal compressibility with no evidence of echogenic material noted within the lumen of the visualized veins. Colorflow and Doppler signals are normal. LEFT: There is normal compressibility with no evidence of echogenic material noted within the lumen of the visualized veins. Colorflow and Doppler signals are normal. PRELIMINARY FINDINGS 1. No evidence of venous thrombosis in the above visualized veins. PHYSICIAN INTERPRETATION Venous examination of the both lower extremities demonstrated no evidence of venous thrombosis in the visualized veins.Normal compressibility and augmentation of all veins visualized. Signed 04/05/2018 01:28 PM Mayur Noble MD, RPVI Procedure Note Interface, Radiology Results In - 04/05/2018 1:28 PM CDT Vascular Ultrasound Laboratory Lower Extremity Venous Report [address] [place] [address] Pat.Name: MARINA MESSER Pat.ID: [id number] .Date: 04/05/2018 Refer.MD: BRANDT THOMAS MD Exam Time: 8:02:00 AM Study Type:LE Venous Height: 67in Weight: 259lb BSA: 2.26 m2 Age: 4 1960,57Y Sex: FEMALE Sonogrphr: VALENTINE Agarwal RCS Pat. Stat.:Inpatient Room: [place] [address] Tape Vol: SB, CPT - 4: 94105 Echo Event ID:[id number] Order ID: [id number] Reason for Study:Tachypnea, evaluate for DVT. S/p stage II L2-3, L4-5 lateral interbody fusion, T4-pelvis posterior fusion with instrumentation Procedures:Colorflow, Grayscale/2D, Pulsed wave Doppler Race: C SUMMARY: DUPLEX SCAN OBSERVATIONS Deep Veins Superficial Veins Right Left Right Left GSV (prox) Normal Normal CFV Normal Normal (above knee) Femoral Normal Normal GSV (dist) Not Visualized Not Visualized Profunda Normal Normal (below knee) Popliteal Normal Normal PT (prox) Normal Normal SSV Not Visualized Not Visualized PT (dist) Normal Normal Peroneal Normal Normal RIGHT: There is normal compressibility with no evidence of echogenic material noted within the lumen of the visualized veins. Colorflow and Doppler signals are normal. LEFT: There is normal compressibility with no evidence of echogenic material noted within the lumen of the visualized veins. Colorflow and Doppler signals are normal. PRELIMINARY FINDINGS 1. No evidence of venous thrombosis in the above visualized veins. PHYSICIAN INTERPRETATION Venous examination of the both lower extremities demonstrated no evidence of venous thrombosis in the visualized veins. Normal compressibility and augmentation of all veins visualized. Signed 04/05/2018 01:28 PM Mayur Noble MD, RPVI Performing Organization Address City/State/Zipcode Phone Number [facility] [address] [place] [address] CT Angiogram Pe Chest (04/05/2018 4:52 AM CDT) Narrative Performed At EXAMINATION:CT ANGIOGRAM PE CHEST [facility] CLINICAL HISTORY: PE suspectedhigh pretest prob TECHNIQUE:CT angiographic images of the chest were obtained during intravenous administration of iodinated contrast. Computerized reformatted images and 3-D MIP images were also obtained and archived (CT pulmonary embolus protocol).CT scans are performed using radiation dose reduction techniques.Technical factors are evaluated and adjusted to ensure appropriate moderation of exposure.Automated dose management technology is applied to adjust radiation exposure while achieving a diagnostic quality image. COMPARISON:None. Findings: Suboptimal bolus limits evaluation for pulmonary embolus. Evaluation for subsegmental branches of the pulmonary artery are nondiagnostic. No central embolus is seen. No dissection or aneurysm is seen. Right lower lobe basilar dependent atelectasis is seen. No pulmonary mass or nodule is seen. No mediastinal hematoma or lymphadenopathy is seen. Visualized upper abdomen shows no acute abnormality. Cholecystectomy clips are noted. Streak artifact from the bilateral pedicular screws are noted in the thoracic spine. IMPRESSION: 1. Suboptimal bolus limits evaluation for pulmonary embolus. Evaluation for subsegmental branches of the pulmonary artery are nondiagnostic. No central embolus is seen. 2. Right lower lobe basilar dependent atelectasis. 3. Otherwise no acute abnormality identified in the chest. [facility]-[id number] Procedure Note Interface, Radiology Results Incoming - 04/05/2018 5:03 AM CDT EXAMINATION: CT ANGIOGRAM PE CHEST CLINICAL HISTORY: PE suspected high pretest prob TECHNIQUE: CT angiographic images of the chest were obtained during intravenous administration of iodinated contrast. Computerized reformatted images and 3-D MIP images were also obtained and archived (CT pulmonary embolus protocol). CT scans are performed using radiation dose reduction techniques. Technical factors are evaluated and adjusted to ensure appropriate moderation of exposure. Automated dose management technology is applied to adjust radiation exposure while achieving a diagnostic quality image. COMPARISON: None. Findings: Suboptimal bolus limits evaluation for pulmonary embolus. Evaluation for subsegmental branches of the pulmonary artery are nondiagnostic. No central embolus is seen. No dissection or aneurysm is seen. Right lower lobe basilar dependent atelectasis is seen. No pulmonary mass or nodule is seen. No mediastinal hematoma or lymphadenopathy is seen. Visualized upper abdomen shows no acute abnormality. Cholecystectomy clips are noted. Streak artifact from the bilateral pedicular screws are noted in the thoracic spine. IMPRESSION: 1. Suboptimal bolus limits evaluation for pulmonary embolus. Evaluation for subsegmental branches of the pulmonary artery are nondiagnostic. No central embolus is seen. 2. Right lower lobe basilar dependent atelectasis. 3. Otherwise no acute abnormality identified in the chest. [facility]-[id number] Performing Organization Address City/[facility] Phone Number [address] [address] Blood culture, aerobic & anaerobic (04/05/2018 2:00 AM CDT)Only the most recent of2 resultswithin the time period is included. Blood culture isolate No growth after 5 days of incubation. [facility] DEPARTMENT OF Comment: PATHOLOGY AND GENOMIC Specimen Information MEDICINE Specimen Source: Blood Specimen Site: Antecubital Right Specimen Blood Performing Organization Address City/[facility] Phone Number [facility] DEPARTMENT OF PATHOLOGY AND [address] [place] [phone] GENOMIC MEDICINE Manual differential (04/05/2018 12:10 AM CDT) Manual differential PERFORMED [facility] DEPARTMENT OF PATHOLOGY AND GENOMIC MEDICINE Neutrophils 57.0 39.0 - 69.0 % [facility] DEPARTMENT OF PATHOLOGY AND GENOMIC MEDICINE Lymphocytes 17.0 (L) 25.0 - 45.0 % [facility] DEPARTMENT OF PATHOLOGY AND GENOMIC MEDICINE Monocytes 26.0 (H) 0.0 - 10.0 % [facility] DEPARTMENT OF PATHOLOGY AND GENOMIC MEDICINE Eosinophils 0.0 0.0 - 5.0 % [facility] DEPARTMENT OF PATHOLOGY AND GENOMIC MEDICINE Basophils 0.0 0.0 - 1.0 % [facility] DEPARTMENT OF PATHOLOGY AND GENOMIC MEDICINE Metamyelocytes 0 % [facility] DEPARTMENT OF PATHOLOGY AND GENOMIC MEDICINE Promyelocytes 0 % [facility] DEPARTMENT OF PATHOLOGY AND GENOMIC MEDICINE Platelet slide review Katie slt decr [facility] DEPARTMENT OF PATHOLOGY AND GENOMIC MEDICINE Performing Organization Address City/[facility]/Zipcode Phone Number [facility] DEPARTMENT OF PATHOLOGY AND [address] [place] [address] [facility] Hemoglobin & hematocrit (04/04/2018 4:00 PM CDT) HGB 6.9 (LL) 12.0 - 16.0 g/dL [facility] DEPARTMENT OF PATHOLOGY Comment: AND GENOMIC MEDICINE HGB results called to and read back by SAMARIA SOUSA/FRITZ(name/location) at 04/04/201816:18 (date/time) by PC. HCT 20.4 (L) 37.0 - 47.0 % [facility] DEPARTMENT OF PATHOLOGY AND GENOMIC MEDICINE Specimen Blood Performing Organization Address City/State/Zipcode Phone Number [facility] DEPARTMENT OF PATHOLOGY AND [address] [place] [address] [facility] CT Head Wo Contrast (04/03/2018 9:08 PM CDT) Narrative Performed At EXAMINATION:CT HEAD WO CONTRAST [facility] CT IMAGING WAS PERFORMED WITH ITERATIVE RECONSTRUCTION TECHNIQUE AND/OR AUTOMATED EXPOSURE CONTROL TO REDUCE RADIATION DOSE. CLINICAL HISTORY:unable to move right arm COMPARISON:None. FINDINGS: 1. There is no acute intracranial abnormality. Specifically there is no intracranial hemorrhage, mass effect or acute infarction. 2.There are minimal if any nonspecific cerebral white matter microvascular changes. There is mild to moderate cerebral cortical volume loss and mild cerebellar volume loss. 3.There is a minimal atherosclerotic calcification in the distal internal carotid arteries. 4.There are small mucous fluid levels in the maxillary sinuses bilaterally larger on the right side and in the sphenoid sinus bilaterally greater on the left side. There is very mild mucosal thickening/mucus in the ethmoid sinus. Mastoids are clear. There is a 6 mm calcified wall cystic structure in the posterior inferior aspect of the maxillary sinus on the right probably of a dentigerous origin and of no significance. IMPRESSION: No acute abnormality demonstrated. MRI of the brain is suggested if further evaluation is clinically indicated. [facility]-[id number] Procedure Note Interface, Radiology Results Incoming - 04/03/2018 9:15 PM CDT EXAMINATION: CT HEAD WO CONTRAST CT IMAGING WAS PERFORMED WITH ITERATIVE RECONSTRUCTION TECHNIQUE AND/OR AUTOMATED EXPOSURE CONTROL TO REDUCE RADIATION DOSE. CLINICAL HISTORY: unable to move right arm COMPARISON: None. FINDINGS: 1. There is no acute intracranial abnormality. Specifically there is no intracranial hemorrhage, mass effect or acute infarction. 2. There are minimal if any nonspecific cerebral white matter microvascular changes. There is mild to moderate cerebral cortical volume loss and mild cerebellar volume loss. 3. There is a minimal atherosclerotic calcification in the distal internal carotid arteries. 4. There are small mucous fluid levels in the maxillary sinuses bilaterally larger on the right side and in the sphenoid sinus bilaterally greater on the left side. There is very mild mucosal thickening/mucus in the ethmoid sinus. Mastoids are clear. There is a 6 mm calcified wall cystic structure in the posterior inferior aspect of the maxillary sinus on the right probably of a dentigerous origin and of no significance. IMPRESSION: No acute abnormality demonstrated. MRI of the brain is suggested if further evaluation is clinically indicated. [facility]-[id number] Performing Organization Address City/[facility]/[place] [address] Sodium level, syringe (04/03/2018 5:05 PM CDT)Only the most recent of6 resultswithin the time period is included. Sodium, syringe 135 135 - 148 mEq/L [facility] DEPARTMENT OF PATHOLOGY AND GENOMIC MEDICINE Specimen Blood Performing Organization Address City/[facility] Phone Number [facility] DEPARTMENT OF PATHOLOGY AND [address] [place] [address] Potassium, syringe (04/03/2018 5:05 PM CDT)Only the most recent of6 resultswithin the time period is included. Potassium, syringe 3.8 3.5 - 5.0 mEq/L [facility] DEPARTMENT OF PATHOLOGY AND GENOMIC MEDICINE Specimen Blood Performing Organization Address [facility] Phone Number [facility] DEPARTMENT OF PATHOLOGY AND [address] [place] [address] Lactic acid, syringe (04/03/2018 5:05 PM CDT)Only the most recent of6 resultswithin the time period is included. Lactic acid, syringe 1.3 0.5 - 2.2 mmol/L [facility] DEPARTMENT OF PATHOLOGY AND GENOMIC MEDICINE Specimen Blood Performing Organization Address City/[facility] Phone Number [facility] DEPARTMENT OF PATHOLOGY AND [address] [place] [address] Ionized calcium, arterial (04/03/2018 5:05 PM CDT)Only the most recent of6 resultswithin the time period is included. Ionized calcium, 0.93 (L)Comment: 1.11 - 1.32 mmol/L [facility] DEPARTMENT OF arterial Specimen is slightly PATHOLOGY AND GENOMIC hemolyzed. Interpret MEDICINE results accordingly. Specimen Blood Performing Organization Address City/[facility] Phone Number [facility] DEPARTMENT OF PATHOLOGY AND [address] [place] [address] Hemoglobin, syringe (04/03/2018 5:05 PM CDT)Only the most recent of6 resultswithin the time period is included. Hemoglobin, syringe 9.2 (L) 12.0 - 16.0 g/dL [facility] DEPARTMENT OF PATHOLOGY AND GENOMIC MEDICINE Specimen Blood Performing Organization Address [facility] Phone Number [facility] DEPARTMENT OF PATHOLOGY AND [address] [place] [address] MEDICINE Glucose level, syringe (04/03/2018 5:05 PM CDT)Only the most recent of6 resultswithin the time period is included. Glucose, syringe 193 (H) 65 - 99 mg/dL [facility] DEPARTMENT OF PATHOLOGY AND GENOMIC MEDICINE Specimen Blood Performing Organization Address [facility] Phone Number [facility] DEPARTMENT OF PATHOLOGY AND [address] [place] [address] Arterial blood gas, corrected (04/03/2018 5:05 PM CDT)Only the most recent of6 resultswithin the time period is included. pH, arterial 7.35 7.35 - 7.45 [facility] DEPARTMENT OF PATHOLOGY AND GENOMIC MEDICINE pCO2, arterial 40 35 - 45 mmHg [facility] DEPARTMENT OF PATHOLOGY AND GENOMIC MEDICINE pO2, arterial 189 (H) 80 - 90 mmHg [facility] DEPARTMENT OF PATHOLOGY AND GENOMIC MEDICINE Temperature, Celsius 37.0 Degrees C [facility] DEPARTMENT OF PATHOLOGY AND GENOMIC MEDICINE O2 saturation, arterial 100 95 - 100 % [facility] DEPARTMENT OF PATHOLOGY AND GENOMIC MEDICINE pH, arterial corrected 7.35 [facility] DEPARTMENT OF PATHOLOGY AND GENOMIC MEDICINE pCO2, arterial corrected 40 mmHg [facility] DEPARTMENT OF PATHOLOGY AND GENOMIC MEDICINE pO2, arterial corrected 189 mmHg [facility] DEPARTMENT OF PATHOLOGY AND GENOMIC MEDICINE Base excess, arterial -4 (L) -2 - 2 mEq/L [facility] DEPARTMENT OF PATHOLOGY AND GENOMIC MEDICINE Specimen Blood Performing Organization Address [facility] Phone Number [facility] DEPARTMENT OF PATHOLOGY AND [address] [place] [address] MEDICINE OR [place] > I Hour (04/03/2018 4:41 PM CDT)Only the most recent of3 resultswithin the time period is included. Narrative Performed At EXAMINATION:OR [place] 1 HOUR HM [facility] C-arm fluoroscopy was requested in OR. Location: [facility] OR room#19 O-ARM Scans:4 Procedure:L2-L3, L4-L5 LATERAL INTERBODY FUSION W/ INSTRUMENTATION; T4-PELVIS POSTERIOR FUSION W/ INSTRUMENTATION Start:7:32pm End:4:41pm Fluoro Time:12.17sec Dose(mGy):157.22 Tech:QTN/MA Date:04/03/18 IMPRESSION: Separate operative report will be issued by the physician performing the procedure. [id number] Procedure Note Interface, Radiology Results Incoming - 04/03/2018 10:11 PM CDT EXAMINATION: OR [place] 1 HOUR C-arm fluoroscopy was requested in OR. Location: [facility] OR room#19 O-ARM Scans:4 Procedure:L2-L3, L4-L5 LATERAL INTERBODY FUSION W/ INSTRUMENTATION; T4-PELVIS POSTERIOR FUSION W/ INSTRUMENTATION Start:7:32pm End:4:41pm Fluoro Time:12.17sec Dose(mGy):157.22 Tech:QTN/MA Date:04/03/18 IMPRESSION: Separate operative report will be issued by the physician performing the procedure. [id number] Performing Organization Address City/State/Zipcode Phone Number [facility] [address] [place] [address] XR Lumbar Spine 1 Vw (04/03/2018 4:31 PM CDT) Narrative Performed At EXAMINATION: XR LUMBAR SPINE 1 VW [facility] CLINICAL HISTORY: Lumbar region back pain and radiculopathy COMPARISON:None Findings: There is posterior fusion from the upper sacral region into the thoracic region. The upper extent is not seen on this exam. There is multilevel pedicle screws connected by vertical rods with areas of laminectomy. There is anterior fusion material at L5-S1, L4-5 and L2-3. There are degenerative changes in the lumbar and lower thoracic spine. There is increased lumbar lordosis. There are multiple radiopaque wires and instruments. IMPRESSION: Lateral intraoperative radiograph of the lumbar spine, sacrum and lower thoracic spine for localization during surgery. [id number] Procedure Note Interface, Radiology Results Incoming - 04/03/2018 4:40 PM CDT EXAMINATION: XR LUMBAR SPINE 1 VW CLINICAL HISTORY: Lumbar region back pain and radiculopathy COMPARISON: None Findings: There is posterior fusion from the upper sacral region into the thoracic region. The upper extent is not seen on this exam. There is multilevel pedicle screws connected by vertical rods with areas of laminectomy. There is anterior fusion material at L5-S1, L4-5 and L2-3. There are degenerative changes in the lumbar and lower thoracic spine. There is increased lumbar lordosis. There are multiple radiopaque wires and instruments. IMPRESSION: Lateral intraoperative radiograph of the lumbar spine, sacrum and lower thoracic spine for localization during surgery. [facility]-[id number] Performing Organization Address City/State/Zipcode Phone Number [facility] [address] [place] [address] XR Cervical Spine 1 Vw (04/03/2018 4:31 PM CDT) Narrative Performed At EXAMINATION: [facility]ORY: Cervical region neck pain and radiculopathy COMPARISON:None Findings: Single AP intraoperative x-ray shows an endotracheal tube with the tip at the level of the clavicles. There is a tube with a radiopaque linear density just to the left of this region. There is a nonspecific radiopaque density foreign body overlapping the right posterior medial T3 rib. There is posterior fusion from the approximately the T4 level extending downwards. Overlying structures obscure detail of the upper thoracic spine. The inferior extent is not seen on this exam. There is anterior fusion with plate and screws in the lower cervical region. IMPRESSION: AP intraoperative radiograph of the cervical and upper thoracic spine for localization during surgery. [facility]-[id number] Procedure Note Interface, Radiology Results Incoming - 04/03/2018 4:38 PM CDT EXAMINATION: XR CERVICAL SPINE 1 VW CLINICAL HISTORY: Cervical region neck pain and radiculopathy COMPARISON: None Findings: Single AP intraoperative x-ray shows an endotracheal tube with the tip at the level of the clavicles. There is a tube with a radiopaque linear density just to the left of this region. There is a nonspecific radiopaque density foreign body overlapping the right posterior medial T3 rib. There is posterior fusion from the approximately the T4 level extending downwards. Overlying structures obscure detail of the upper thoracic spine. The inferior extent is not seen on this exam. There is anterior fusion with plate and screws in the lower cervical region. IMPRESSION: AP intraoperative radiograph of the cervical and upper thoracic spine for localization during surgery. [id number] Performing Organization Address City/State/Zipcode Phone Number [facility] [address] [place] [address] Surgical pathology request (04/03/2018 7:41 AM CDT)Only the most recent of2 resultswithin the time period is included. [facility] DEPARTMENT OF PATHOLOGY AND GENOMIC MEDICINE Surgical pathology report See link below for PDF [facility] DEPARTMENT OF Lab Report PATHOLOGY AND GENOMIC MEDICINE Result status This is Final Report to [facility] DEPARTMENT OF [id number] PATHOLOGY AND GENOMIC MEDICINE Performing Organization Address City/[facility] Phone Number [facility] DEPARTMENT OF PATHOLOGY AND [address] [place] [address] GENOMIC [facility] Partial thromboplastin time, activated (04/03/2018 4:28 AM CDT)Only the most recent of3 resultswithin the time period is included. PTT 35.9 23.0 - 36.0 sec [facility] DEPARTMENT OF PATHOLOGY Comment: AND GENOMIC MEDICINE PTT therapeutic range for unfractionated heparin is 61.0-112.0 seconds which corresponds to Anti-Xa 0.3-0.7 U/ml. Specimen Blood Performing Organization Address City/[facility] Phone Number [facility] DEPARTMENT OF PATHOLOGY AND [address] [place], [place] [id number] [facility] Prothrombin time with INR (04/03/2018 4:28 AM CDT)Only the most recent of3 resultswithin the time period is included. Prothrombin time 13.8 12.0 - 15.0 sec [facility] DEPARTMENT OF PATHOLOGY AND GENOMIC MEDICINE INR 1.0 [facility] DEPARTMENT OF Comment: PATHOLOGY AND GENOMIC The International Normalized Ratio (INR) is a therapeutic MEDICINE monitoring tool for patients who are stable on oral anticoagulant therapy. An INR of 2.0-3.0 is suggested for deep vein thrombosis/pulmonary embolism. Specimen Blood Performing Organization Address City/[facility]/Zipcode Phone Number [facility] DEPARTMENT OF PATHOLOGY AND [address] [place], [place] [id number] [facility] Hemoglobin (04/02/2018 4:00 AM CDT) HGB 10.3 (L) 12.0 - 16.0 g/dL [facility] DEPARTMENT OF PATHOLOGY AND GENOMIC MEDICINE Specimen Blood Performing Organization Address City/State/Zipcode Phone Number [facility] DEPARTMENT OF PATHOLOGY AND [address] [place] [address] [employer] [address] Thoracic Spine Wo Contrast (03/31/2018 5:00 PM CDT) Narrative Performed At Study: CT THORACIC SPINE WO CONTRAST. [facility] HISTORY: surgical planning. COMPARISON:None. TECHNIQUE: Multiple axial CT images of the thoracic spine performed without intravenous contrast. Sagittal and coronal reconstructions performed. CT imaging was performed with iterative reconstruction technique and/or automated exposure control to reduce radiation dose. FINDINGS: Mineralization is low normal. There is a curvature of the thoracic spine left convex at the level of T4 and right convex at the level of T9. No lateral listhesis. There is been prior posterior element surgery from T5 to T12. There is fusion of facet joints bilaterally at these levels. No acute fracture or erosions. There is generalized mild disc space loss. No obvious disc protrusion present. There is no significant canal or foraminal stenosis within limitations of CT. The tip of the epidural electrode is seen posteriorly at the level of T11. Paravertebral soft tissues are unremarkable. There is some mild atelectasis is of the dependent portions of the lungs. There is some pleural calcification on the right. IMPRESSION: S-shaped scoliosis of the thoracic spine with some prior posterior element surgery at mid to lower segments and fusion of the facet joints bilaterally at these levels. [id number] Procedure Note Interface, Radiology Results Incoming - 03/31/2018 5:44 PM CDT Study: CT THORACIC SPINE WO CONTRAST. HISTORY: surgical planning. COMPARISON:None. TECHNIQUE: Multiple axial CT images of the thoracic spine performed without intravenous contrast. Sagittal and coronal reconstructions performed. CT imaging was performed with iterative reconstruction technique and/or automated exposure control to reduce radiation dose. FINDINGS: Mineralization is low normal. There is a curvature of the thoracic spine left convex at the level of T4 and right convex at the level of T9. No lateral listhesis. There is been prior posterior element surgery from T5 to T12. There is fusion of facet joints bilaterally at these levels. No acute fracture or erosions. There is generalized mild disc space loss. No obvious disc protrusion present. There is no significant canal or foraminal stenosis within limitations of CT. The tip of the epidural electrode is seen posteriorly at the level of T11. Paravertebral soft tissues are unremarkable. There is some mild atelectasis is of the dependent portions of the lungs. There is some pleural calcification on the right. IMPRESSION: S-shaped scoliosis of the thoracic spine with some prior posterior element surgery at mid to lower segments and fusion of the facet joints bilaterally at these levels. [id number] Performing Organization Address City/State/Zipcode Phone Number [facility] [address] [place] [address] CT Lumbar Spine Wo Contrast (03/31/2018 4:59 PM CDT) Narrative Performed At Study: CT LUMBAR SPINE WO CONTRAST. [facility] HISTORY: surgical planning. COMPARISON:None. TECHNIQUE: Multiple axial CT images of the lumbar spine performed without intravenous contrast. Sagittal and coronal reconstructions performed. CT imaging was performed with iterative reconstruction technique and/or automated exposure control to reduce radiation dose. FINDINGS: Mineralization is low normal. There is a left convex curvature of the lumbar spine centered at L3. No lateral listhesis. No anterior subluxations. Vertebral body heights are within normal limits. There is no acute fracture. There are some postoperative changes of prior laminectomy at L1. The spinal canal electrode appears more intrathecal in the lumbar spine when compared to the recent thoracic spine. There are posterior changes of L5/S1 interbody fusion. No erosions. Mild disc space loss at L1-2 without disc protrusion, canal stenosis, foraminal stenosis. Severe disc space loss at L2-3 with a broad shallow disc protrusion. No significant canal stenosis. Moderate bilateral foraminal stenosis facet arthrosis. Severe disc space loss at L3-4 without obvious disc protrusion. No significant canal stenosis. Facet arthrosis result in mild left and moderate right foraminal stenosis. Moderate disc space loss at L4-5. Broad shallow disc bulge and mild canal stenosis. Facet arthrosis present with moderate bilateral foraminal stenosis. Postoperative changes at L5/S1 as described above. There is no canal stenosis. Moderate left foraminal stenosis from facet arthrosis. Right foramen is patent. Paravertebral soft tissues are unremarkable. No fluid collection. Small foci of air in the retroperitoneum likely postoperative. IMPRESSION: Expected postoperative changes. Degenerative changes as above. [id number] Procedure Note Interface, Radiology Results Incoming - 03/31/2018 5:52 PM CDT Study: CT LUMBAR SPINE WO CONTRAST. HISTORY: surgical planning. COMPARISON:None. TECHNIQUE: Multiple axial CT images of the lumbar spine performed without intravenous contrast. Sagittal and coronal reconstructions performed. CT imaging was performed with iterative reconstruction technique and/or automated exposure control to reduce radiation dose. FINDINGS: Mineralization is low normal. There is a left convex curvature of the lumbar spine centered at L3. No lateral listhesis. No anterior subluxations. Vertebral body heights are within normal limits. There is no acute fracture. There are some postoperative changes of prior laminectomy at L1. The spinal canal electrode appears more intrathecal in the lumbar spine when compared to the recent thoracic spine. There are posterior changes of L5/S1 interbody fusion. No erosions. Mild disc space loss at L1-2 without disc protrusion, canal stenosis, foraminal stenosis. Severe disc space loss at L2-3 with a broad shallow disc protrusion. No significant canal stenosis. Moderate bilateral foraminal stenosis facet arthrosis. Severe disc space loss at L3-4 without obvious disc protrusion. No significant canal stenosis. Facet arthrosis result in mild left and moderate right foraminal stenosis. Moderate disc space loss at L4-5. Broad shallow disc bulge and mild canal stenosis. Facet arthrosis present with moderate bilateral foraminal stenosis. Postoperative changes at L5/S1 as described above. There is no canal stenosis. Moderate left foraminal stenosis from facet arthrosis. Right foramen is patent. Paravertebral soft tissues are unremarkable. No fluid collection. Small foci of air in the retroperitoneum likely postoperative. IMPRESSION: Expected postoperative changes. Degenerative changes as above. [id number] Performing Organization Address City/[facility]/Zipcode Phone Number [facility] [address] [place] [address] Lactic acid level (03/31/2018 3:00 PM CDT) Lactic acid 3.9 (HH) 0.5 - 2.2 mmol/L [facility] DEPARTMENT OF PATHOLOGY AND GENOMIC MEDICINE Specimen Blood Performing Organization Address City/[facility]/Zipcode Phone Number [facility] DEPARTMENT OF PATHOLOGY AND [address] [place] [address] GENOMIC MEDICINE XR Chest 2 Vw (03/16/2018 5:24 PM CDT) Narrative Performed At Examination: XR CHEST 2 VW [facility] Clinical history: Z01.818 Encounter for other preprocedural examination, PREOP Comparison: None Impression: 1. The heart and pulmonary vasculature are within normal limits. 2. No infiltrate or effusion is demonstrated. Right middle lobe linear atelectasis is likely chronic. 3. There is no acute osseous pathology. Thoracolumbar scoliosis distorts the mediastinal anatomy. CONCLUSION: NO RADIOGRAPHIC EVIDENCE OF ACUTE CARDIOPULMONARY ABNORMALITY. [id number] Procedure Note Hm Interface, Radiology Results Incoming - 03/16/2018 5:50 PM CDT Examination: XR CHEST 2 VW Clinical history: Z01.818 Encounter for other preprocedural examination, PREOP Comparison: None Impression: 1. The heart and pulmonary vasculature are within normal limits. 2. No infiltrate or effusion is demonstrated. Right middle lobe linear atelectasis is likely chronic. 3. There is no acute osseous pathology. Thoracolumbar scoliosis distorts the mediastinal anatomy. CONCLUSION: NO RADIOGRAPHIC EVIDENCE OF ACUTE CARDIOPULMONARY ABNORMALITY. [facility]-[id number] Performing Organization Address City/[facility] Phone Number [facility] [address] [place] [address] Vitamin D 25 hydroxy level (03/16/2018 4:21 PM CDT) Vitamin D, 25-hydroxy 42.7 30.0 - 150.0 [facility] DEPARTMENT OF Comment: ng/mL PATHOLOGY AND GENOMIC This assay reports the sum of 25-hydroxy vitamin D3 and 25-hydroxy vitamin MEDICINE D2. Reference range: 0-17 years: Deficiency: less than 20ng/mL Optimum level: greater than or equal to 20 ng/mL. 18 years and older: Deficiency: less than 20ng/mL Insufficiency: 20-29 ng/mL Optimum Level: 30-80 ng/mL The assay reportable range is 3.4155.9 ng/mL. Levels higher than 150 ng/mL may be associated with toxicity. If toxicity is clinically suspected and the reported result is >155.9 ng/mL,contact lab for alternative methods to obtain a definitivelevel. If separate quantitation of 25-hydroxy vitamin D3 and 25-hydroxy vitamin D2 is needed, please contact lab for alternative methods. Specimen Blood Performing Organization Address City/[facility]/Zipcode Phone Number [facility] DEPARTMENT OF PATHOLOGY AND [address] [place] [address] [employer] [facility] Parathyroid hormone (03/16/2018 4:21 PM CDT) PTH 55 15 - 65 pg/mL [facility] DEPARTMENT OF PATHOLOGY AND GENOMIC MEDICINE Specimen Blood Performing Organization Address City/[facility]/Zipcode Phone Number [facility] DEPARTMENT OF PATHOLOGY AND [address] [place] [address] [facility] Hepatic function panel (03/16/2018 4:21 PM CDT) Albumin 3.6 3.5 - 5.0 g/dL [facility] DEPARTMENT OF PATHOLOGY AND GENOMIC MEDICINE Total bilirubin <0.2 0.0 - 1.2 mg/dL [facility] DEPARTMENT OF PATHOLOGY AND GENOMIC MEDICINE Bilirubin direct <0.2 0.0 - 0.3 mg/dL [facility] DEPARTMENT OF PATHOLOGY AND GENOMIC MEDICINE Alkaline phosphatase 91 35 - 104 U/L [facility] DEPARTMENT OF PATHOLOGY AND GENOMIC MEDICINE Protein 7.8 6.3 - 8.3 g/dL [facility] DEPARTMENT OF Comment: PATHOLOGY AND GENOMIC [place] 4.6-7.0 g/dL MEDICINE 1 week 4.4-7.6 g/dL 7 months-1year5.1-7.3 g/dL 1-2 years5.6-7.5 g/dL >3 years6.0-8.0 g/dL 18-150 6.3-8.3 g/dL ALT 50 5 - 50 U/L [facility] DEPARTMENT OF PATHOLOGY AND GENOMIC MEDICINE AST 31 10 - 35 U/L [facility] DEPARTMENT OF PATHOLOGY AND GENOMIC MEDICINE Specimen Plasma specimen Performing Organization Address City/State/Zipcode Phone Number [facility] DEPARTMENT OF PATHOLOGY AND [address] [place] [address] [facility] Bone Density Peripheral (02/04/2018 5:25 PM CDT) Narrative Performed At EXAMINATION:BONE DENSITY PERIPHERAL [facility] CLINICAL HISTORY:M80.00XA Age-related osteoporosis with current pathological fracture COMPARISON:None. The results of this study expressed as bone mineral density (BMD) were as follows: Left Forearm (Radius 33%): BMD: 0.847 g/cm2 T-Score: -0.3 Z-Score: 0.3 Percent change: No prior exam. % Impression:Normal BMD. [facility]-[id number] A copy of this scans including a report detailing these results will follow. Notes: *The world health organization (WHO) has classified the patient's T-score as follows: Normal=T-score at or above -1.0 SD Osteopenia=T-score between -1.0 and -2.5 SD Osteoporosis=T-score at or below minus 2.5 SD For premenopausal women, men under the age 50 years, and children the WHO classification does not apply. In these individuals please assess bone mineral density with Z scores for each skeletal site examined. Z scores above -2.0: Within expected range for age. Z scores lower than -2.0:Low bone density for age. Procedure Note Interface, Radiology Results Incoming - 02/04/2018 5:55 PM CDT EXAMINATION: BONE DENSITY PERIPHERAL CLINICAL HISTORY: M80.00XA Age-related osteoporosis with current pathological fracture COMPARISON: None. The results of this study expressed as bone mineral density (BMD) were as follows: Left Forearm (Radius 33%): BMD: 0.847 g/cm2 T-Score: -0.3 Z-Score: 0.3 Percent change: No prior exam. % Impression: Normal BMD. [facility]-[id number] A copy of this scans including a report detailing these results will follow. Notes: *The world health organization (WHO) has classified the patient's T-score as follows: Normal=T-score at or above -1.0 SD Osteopenia=T-score between -1.0 and -2.5 SD Osteoporosis=T-score at or below minus 2.5 SD For premenopausal women, men under the age 50 years, and children the WHO classification does not apply. In these individuals please assess bone mineral density with Z scores for each skeletal site examined. Z scores above -2.0: Within expected range for age. Z scores lower than -2.0: Low bone density for age. Performing Organization Address City/State/Zipcode Phone Number [facility] [address] [place] [address] Bone Density (02/04/2018 5:25 PM CDT) Narrative Performed At EXAMINATION[facility] CLINICAL HISTORY:M80.00XA Age-related osteoporosis with current pathological fracture COMPARISON:None. The results of this study expressed as bone mineral density (BMD) were as follows: AP spine (L1-L4) BMD: 1.462 g/cm2 T-Score: 2.4 Z-Score: 2.1 Percent change: No prior exam.% Values are likely spuriously elevated secondary to multilevel degenerative disc disease and reactive vertebral body osteosclerosis along the concave margin of a levoscoliotic spine. Dual Femur (Total Mean): Limited by bilateral total arthroplasties. Impression:Limited examination secondary to degenerative discogenic osteosclerosis of the AP lumbar spine and bilateral total hip arthroplasties. Notes: *The world health organization (WHO) has classified the patient's T-score as follows: Normal=T-score at or above -1.0 SD Osteopenia=T-score between -1.0 and -2.5 SD Osteoporosis=T-score at or below minus 2.5 SD For premenopausal women, men under the age 50 years, and children the WHO classification does not apply. In these individuals please assess bone mineral density with Z scores for each skeletal site examined. Z scores above -2.0: Within expected range for age. Z scores lower than -2.0:Low bone density for age. The TBS is derived from the texture of the DEXA image and has been shown to be related to bone microarchitecture and fracture risk. This data provides information independent of BMD value; is used as a complement to the data obtained from the DEXA analysis and the clinical examination. The TBS can assist the healthcare professional in assessment of fracture risk and in monitoring the effect of treatments on patient over time. [facility]-[id number] Procedure Note [facility], Radiology Results Incoming - 02/04/2018 5:52 PM CDT EXAMINATION: BONE DENSITY CLINICAL HISTORY: M80.00XA Age-related osteoporosis with current pathological fracture COMPARISON: None. The results of this study expressed as bone mineral density (BMD) were as follows: AP spine (L1-L4) BMD: 1.462 g/cm2 T-Score: 2.4 Z-Score: 2.1 Percent change: No prior exam.% Values are likely spuriously elevated secondary to multilevel degenerative disc disease and reactive vertebral body osteosclerosis along the concave margin of a levoscoliotic spine. Dual Femur (Total Mean): Limited by bilateral total arthroplasties. Impression: Limited examination secondary to degenerative discogenic osteosclerosis of the AP lumbar spine and bilateral total hip arthroplasties. Notes: *The world health organization (WHO) has classified the patient's T-score as follows: Normal=T-score at or above -1.0 SD Osteopenia=T-score between -1.0 and -2.5 SD Osteoporosis=T-score at or below minus 2.5 SD For premenopausal women, men under the age 50 years, and children the WHO classification does not apply. In these individuals please assess bone mineral density with Z scores for each skeletal site examined. Z scores above -2.0: Within expected range for age. Z scores lower than -2.0: Low bone density for age. The TBS is derived from the texture of the DEXA image and has been shown to be related to bone microarchitecture and fracture risk. This data provides information independent of BMD value; is used as a complement to the data obtained from the DEXA analysis and the clinical examination. The TBS can assist the healthcare professional in assessment of fracture risk and in monitoring the effect of treatments on patient over time. [facility]-[id number] Performing Organization Address City/State/Zipcode Phone Number [facility] [address] [place] [address] after 12/01/2017 Insurance Payer Benefit Plan / Group Subscriber ID Type Phone Address [facility] OPEN ACCESS/NETWORK xxxxxxxxxxx O Advance Directives Patient has advance care planning documents on file. For more information, please contact:Ismael Layne[address] [place] [address]
--- OUTSIDE RECORDS SUMMARY | 2018-12-02 16:22 | XMS REPORT | Continuity of Care Document ---
:1960 Author Organization Interface Problems Problem Status Onset Classification Date Comments Source Date Reported BACK Active [facility] 018 [facility] BACK / AQUA Active [facility] 018 [facility] ARTHROPATHY OF LUMBAR Active [facility] FACET JOINTS [address] [place] ARTHROPATHY OF LUMBAR Active [facility] FACET JOINT [address] [place] Bipolar 1 disorder Resolved Problem 07/21/2017 [facility] Diabetes Active Problem 07/21/2017 [facility] Acid reflux Active Problem 07/21/2017 [facility] Hypercholesteremia Active Problem 07/21/2017 [facility] Asthma in adult Active Problem 07/21/2017 [facility] Hypertension Active Problem 07/21/2017 [facility] Arthritis Resolved Problem 07/21/2017 [facility] Migraines Active Problem 07/21/2017 [facility] Depression Resolved Problem 07/21/2017 [facility] Apnea, sleep Resolved Problem 07/21/2017 [facility] Bladder incontinence Active Problem 07/21/2017 [facility] Medications Medication Details Route Status Patient Ordering Order Source Instructions Provider Date acetaminophen-10 1,000 mg, 100 Inactive mg/mL mL, Route: IV, 2016 Orth[facility] INTRAVENOUS Drug form: INJ, and solution ONCE, Dosing Spine Weight 112.727, kg, Start date: 07/18/17 12:17:00 CDT, Stop date: 07/18/17 12:17:00 CDTNotes: Infuse over 15 minutes Do not exceed 4gm/day of acetaminophen MEDICATION WASTE Product Size: 1000 mg Product Wasted: ___ mg Lactated Ringers 1,000 mL, Rate: No Longer 1,000 mL 125 ml/hr, Active 2016 Ortho Infuse over: 8 and hr, Route: IV, Spine Dosing Weight 112.784 kg, Total Volume: 1,000, Start date: 07/18/17 12:17:00 CDT, Duration: 30 day, Stop date: 08/17/17 12:16:00 [employer] ketOROLAC 15 15 mg, 0.5 mL, Inactive mg/mL injectable Route: IV, Drug 2016 Ortho solution form: INJ, ONCE, and Dosing Weight Spine 112.727, kg, Priority: NOW, Start date: 07/18/17 12:17:00 CDT, Stop date: 07/18/17 12:17:00 CDTNotes: (Same as:Toradol) IV bolus must be given >15 seconds. Give IM administration slowly and deeply into the muscle. Not for use > 4 days MEDICATION WASTE Product Size: 30 mg Product Wasted: ___ mg hydromorphone 1 mg, 0.5 mL, No Longer Route: IVP, Drug Active 2016 Ortho form: INJ, PRN, and Dosing Weight Spine 112.727, kg, PRN Pain Score 7-10, Start date: 07/18/17 12:17:00 CDT, Duration: 6 doses or times, Stop date: 07/19/17 0:00:00 CDTNotes: (Same as: Dilaudid) promethazine 12.5 mg, 0.5 mL, No Longer Route: IVPB, Active 2016 Ortho Drug form: INJ, and Q4H, Dosing Spine Weight 112.784, kg, PRN Nausea & Vomiting, Start date: 07/18/17 12:17:00 CDT, Duration: 30 day, Stop date: 08/17/17 12:16:00 CSTNotes: Do not give IV push. (Same as: Phenergan) ondansetron 4 mg, 2 mL, No Longer Route: IVP, Drug Active 2016 Ortho form: INJ, ONCE, and Dosing Weight Spine 112.727, kg, PRN Nausea & Vomiting, Start date: 07/18/17 12:17:00 CDTNotes: (Same as: Zofran) MEDICATION WASTE Product Size: 4 mg Product Wasted: ___ mg acetaminophen-hy 1 tab, Route: No Longer drocodone 325 PO, Drug Form: Active 2017 Ortho mg-10 mg oral TAB, Dosing and tablet Weight 112.727, Spine kg, Q4H, PRN Pain Score 4-6, Start date: 07/18/17 12:17:00 CDT, Duration: 30 day, Stop date: 08/17/17 12:16:00 CSTNotes: Do not exceed 4gm/day of acetaminophen. (Same as: Boxford 325/10) Saline Flush 10 ml, Route: No Longer 0.9% IVP, Drug Form: Active 2016 Ortho INJ, Dosing and Weight 112.727, Spine kg, PRN, PRN Line Flush, Start date: 07/18/17 10:42:00 CDT, Duration: 30 day, Stop date: 08/17/17 9:41:00 CSTNotes: preservative free. Lactated Ringers 1,000 mL, Rate: Inactive 1,000 mL 125 ml/hr, 2017 Ortho Infuse over: 8 and hr, Route: IV, Spine Dosing Weight 112.727 kg, Total Volume: 1,000, Start date: 07/18/17 10:42:00 CDT, Duration: 30 day, Stop date: 08/17/17 10:41:00 [employer] Hydromorphone 0.5 mg, 0.25 mL, No Longer Route: IVP, Drug Active 2016 Ortho form: INJ, PRN, and Dosing Weight Spine 113.636, kg, PRN Pain Score 4-6, Start date: 06/06/17 11:27:00 CDT, Duration: 6 doses or times, Stop date: 06/07/17 0:00:00 CDTNotes: Same as Dilaudid Ondansetron 4 mg, 2 mL, No Longer Route: IVP, Drug Active 2016 Ortho form: INJ, ONCE, and Dosing Weight Spine 113.636, kg, PRN Nausea & Vomiting, Start date: 06/06/17 11:27:00 CDTNotes: (Same as: Zofran) MEDICATION WASTE Product Size: 4 mg Product Wasted: ___ mg Promethazine 12.5 mg, 0.5 mL, No Longer Route: IVPB, Active 2016 Ortho Drug form: INJ, and Q4H, Dosing Spine Weight 113.636, kg, PRN Nausea & Vomiting, Start date: 06/06/17 11:27:00 CDT, Duration: 30 day, Stop date: 07/06/17 11:26:00 CDTNotes: Do not give IV push. (Same as: Phenergan) Lactated Ringers 1,000 mL, Rate: No Longer 1,000 mL 125 ml/hr, Active 2016 Ortho Infuse over: 8 and hr, Route: IV, Spine Dosing Weight 113.636 kg, Total Volume: 1,000, Start date: 06/06/17 11:27:00 CDT, Duration: 30 day, Stop date: 07/06/17 11:26:00 CDT Acetaminophen 1 tab, Route: No Longer 325 MG / PO, Drug Form: Active 2016 Ortho Hydrocodone TAB, Dosing and Bitartrate 10 MG Weight 113.636, Spine Oral Tablet kg, Q4H, PRN Pain Score 4-6, Start date: 06/06/17 11:27:00 CDT, Duration: 30 day, Stop date: 07/06/17 11:26:00 CDTNotes: Do not exceed 4gm/day of acetaminophen. (Same as: Boxford 325/10) Lactated Ringers 1,000 mL, Rate: Inactive 1,000 mL 125 ml/hr, 2017 Ortho Infuse over: 8 and hr, Route: IV, Spine Dosing Weight 113.636 kg, Total Volume: 1,000, Start date: 06/06/17 10:04:00 CDT, Duration: 30 day, Stop date: 07/06/17 10:03:00 CDT Promethazine 12.5 mg, 0.5 mL, No Longer Route: IVPB, Active 2016 Ortho Drug form: INJ, and Q4H, Dosing Spine Weight 118.182, kg, PRN Nausea & Vomiting, Start date: 04/18/17 9:46:00 CDT, Duration: 30 day, Stop date: 05/18/17 9:45:00 CDTNotes: Do not give IV push. (Same as: Phenergan) Ondansetron 4 mg, 2 mL, No Longer Route: IVP, Drug Active 2017 Ortho form: INJ, ONCE, and Dosing Weight Spine 118.182, kg, PRN Nausea & Vomiting, Start date: 04/18/17 9:46:00 CDTNotes: (Same as: Basilio) MEDICATION WASTE Product Size: 4 mg Product Wasted: ___ mg Hydromorphone 1 mg, 0.5 mL, No Longer Route: IVP, Drug Active 2016 Ortho form: INJ, PRN, and Dosing Weight Spine 118.182, kg, PRN Pain Score 7-10, Start date: 04/18/17 9:46:00 CDT, Duration: 30 day, Stop date: 05/18/17 9:45:00 CDTNotes: Same as Dilaudid Acetaminophen 1 tab, Route: No Longer 325 MG / PO, Drug Form: Active 2016 Ortho Hydrocodone TAB, Dosing and Bitartrate 10 MG Weight 118.182, Spine Oral Tablet kg, Q4H, PRN Pain Score 4-6, Start date: 04/18/17 9:46:00 CDT, Duration: 30 day, Stop date: 05/18/17 9:45:00 CDTNotes: Do not exceed 4gm/day of acetaminophen. (Same as: Boxford 325/10) Lactated Ringers 1,000 mL, Rate: No Longer 1,000 mL 125 ml/hr, Active 2016 Ortho Infuse over: 8 and hr, Route: IV, Spine Dosing Weight 118.182 kg, Total Volume: 1,000, Start date: 04/18/17 9:46:00 CDT, Duration: 30 day, Stop date: 05/18/17 9:45:00 CDT Lactated Ringers 1,000 mL, Rate: Inactive 1,000 mL 125 ml/hr, 2017 Ortho Infuse over: 8 and hr, Route: IV, Spine Dosing Weight 118.182 kg, Total Volume: 1,000, Start date: 04/18/17 8:53:00 CDT, Duration: 30 day, Stop date: 05/18/17 8:52:00 CDT Lactated Ringers 1,000 mL, Rate: No Longer 1,000 mL 125 ml/hr, Active 2016 Ortho Infuse over: 8 and hr, Route: IV, Spine Dosing Weight 118.636 kg, Total Volume: 1,000, Start date: 03/28/17 10:52:00 CDT, Duration: 30 day, Stop date: 04/27/17 10:51:00 CDT Promethazine 12.5 mg, 0.5 mL, No Longer Route: IVPB, Active 2016 Ortho Drug form: INJ, and Q4H, Dosing Spine Weight 118.636, kg, PRN Nausea & Vomiting, Start date: 03/28/17 10:52:00 CDT, Duration: 30 day, Stop date: 04/27/17 10:51:00 CDTNotes: Do not give IV push. (Same as: Phenergan) Ondansetron 4 mg, 2 mL, No Longer Route: IVP, Drug Active 2016 Ortho form: INJ, ONCE, and Dosing Weight Spine 118.636, kg, PRN Nausea & Vomiting, Start date: 03/28/17 10:52:00 CDTNotes: (Same as: Zofran) MEDICATION WASTE Product Size: 4 mg Product Wasted: ___ mg Hydromorphone 1 mg, 0.5 mL, No Longer Route: IVP, Drug Active 2016 Ortho form: INJ, PRN, and Dosing Weight Spine 118.636, kg, PRN Pain Score 7-10, Start date: 03/28/17 10:52:00 CDT, Duration: 3 doses or times, Stop date: 03/29/17 0:00:00 CDTNotes: Same as Dilaudid Acetaminophen 1 tab, Route: No Longer 325 MG / PO, Drug Form: Active 2017 Ortho Hydrocodone TAB, Dosing and Bitartrate 10 MG Weight 118.636, Spine Oral Tablet kg, Q4H, PRN Pain Score 4-6, Start date: 03/28/17 10:52:00 CDT, Duration: 30 day, Stop date: 04/27/17 10:51:00 CDTNotes: Do not exceed 4gm/day of acetaminophen. (Same as: [place] 325/10) Ondansetron 4 mg, 2 mL, No Longer Route: IVP, Drug Active 2017 Ortho form: INJ, ONCE, and Dosing Weight Spine 118.636, kg, PRN Nausea & Vomiting, Start date: 03/28/17 10:38:00 CDTNotes: (Same as: Zokarl) MEDICATION WASTE Product Size: 4 mg Product Wasted: ___ mg Naloxone 0.4 mg, 1 mL, Inactive Route: IVP, Drug 2016 Ortho form: INJ, and Q2MIN, Dosing Spine Weight 118.636, kg, PRN Narcotic Reversal, Start date: 03/28/17 10:38:00 CDT, Duration: 8 doses or times, Stop date: 03/28/17 18:37:00 CDTNotes: Same as Narcan Flumazenil 0.2 mg, 2 mL, Inactive Route: IVP, Drug 2016 Ortho form: INJ, PRN, and Dosing Weight Spine 118.636, kg, PRN Benzodiazepine Reversal, Initial dose, Start date: 03/28/17 10:38:00 CDT, Duration: 8 hr, Stop date: 03/28/17 18:37:00 CDTNotes: (Same as: Romazicon) Lactated Ringers 1,000 mL, Rate: Inactive 1,000 mL 125 ml/hr, 2017 Ortho Infuse over: 8 and hr, Route: IV, Spine Dosing Weight 118.636 kg, Total Volume: 1,000, Start date: 03/28/17 9:42:00 CDT, Duration: 30 day, Stop date: 04/27/17 9:41:00 CDT metoprolol 100 100 mg=1 tab, Active mg oral tablet, PO, Daily, # 30 2017 Ortho extended release tab, 0 Refill(s) and Spine lisinopril 10 mg 10 mg=1 tab, PO, Active oral tablet Daily, # 30 tab, 2017 Ortho 0 Refill(s) and Spine topiramate 50 MG 50 mg=1 tab, PO, Active Oral Tablet BID, # 60 tab, 0 2017 Ortho [Topamax] Refill(s) and Spine Lurasidone 60 mg=1 tab, PO, Active 07/06/ [facility] Hydrochloride 60 Daily, 0 2017 Ortho MG Oral Tablet Refill(s) and [Latuda] Spine Deplin 15 mg 15 mg=1 cap, PO, Active oral capsule Daily, 0 2016 Ortho Refill(s) and Spine Simvastatin 10 10 mg=1 tab, PO, Active MG Oral Tablet Bedtime, # 30 2016 Ortho [Zocor] tab, 0 Refill(s) and Spine Furosemide 20 MG 20 mg=1 tab, PO, Active Oral Tablet Daily, # 30 tab, 2017 Ortho [Lasix] 0 Refill(s) and Spine 24 HR 100 mg=1 tab, Active Desvenlafaxine PO, Daily, # 30 2016 Ortho 100 MG Extended tab, 0 Refill(s) and Release Tablet Spine [Pristiq] Metformin 500 mg=1 tab, Active hydrochloride PO, BID-Meals, # 2016 Ortho 500 MG Oral 30 tab, 0 and Tablet Refill(s) Spine amitriptyline 75 75 mg=1 tab, PO, Active mg oral tablet Bedtime, # 30 2016 Ortho tab, 0 Refill(s) and Spine Allergies, Adverse Reactions, Alerts Substance Category Reaction Severity Reaction Status Date Comments Source type Reported penicillins Assertion Drug Active eyes [facility] <sup>1</sup allergy swell, Ortho > rash and hives Spine Immunizations Immunization Date Given Site Status Last Updated Comments Source Results Order Results Value Reference Date Interpretation Comments Source Name Range Vital Signs Vital Sign Value Date Comments Source Systolic (mm Hg) 102 07/18/2017 [facility] Diastolic (mm Hg) 61 07/18/2017 [facility] Respitory Rate 16 07/18/2017 [facility] BMI Calculated 40.15 07/18/2017 [facility] Weight 112.784 07/18/2017 [facility] Height 167.6 cm 07/18/2017 [facility] Respitory Rate 16 07/18/2017 [facility] Systolic (mm Hg) 100 07/18/2017 [facility] Diastolic (mm Hg) 60 07/18/2017 [facility] Temperature Oral (F) 97.6 F 07/18/2017 [facility] Respitory Rate 16 07/18/2017 [facility] Systolic (mm Hg) 104 07/18/2017 [facility] Diastolic (mm Hg) 59 07/18/2017 [facility] Temperature Oral (F) 98.2 F 07/18/2017 [facility] Systolic (mm Hg) 107 06/06/2017 [facility] Diastolic (mm Hg) 66 06/06/2017 [facility] Respitory Rate 16 06/06/2017 [facility] Respitory Rate 15 06/06/2017 [facility] Systolic (mm Hg) 98 06/06/2017 [facility] Diastolic (mm Hg) 52 06/06/2017 [facility] Respitory Rate 15 06/06/2017 [facility] Systolic (mm Hg) 106 06/06/2017 [facility] Diastolic (mm Hg) 55 06/06/2017 [facility] Temperature Oral (F) 97.8 F 06/06/2017 [facility] BMI Calculated 40.44 06/02/2017 [facility] Height 167.64 cm 06/02/2017 [facility] Weight 113.636 06/02/2017 [facility] Systolic (mm Hg) 107 04/18/2017 [facility] Diastolic (mm Hg) 63 04/18/2017 [facility] Respitory Rate 14 04/18/2017 [facility] Systolic (mm Hg) 101 04/18/2017 [facility] Diastolic (mm Hg) 60 04/18/2017 [facility] Respitory Rate 14 04/18/2017 [facility] Systolic (mm Hg) 104 04/18/2017 [facility] Diastolic (mm Hg) 60 04/18/2017 [facility] Respitory Rate 14 04/18/2017 [facility] BMI Calculated 42.05 04/18/2017 [facility] Height 167.64 cm 04/18/2017 [facility] Weight 118.182 04/18/2017 [facility] BMI Calculated 42.05 04/14/2017 [facility] Weight 118.182 04/14/2017 [facility] Height 167.64 cm 04/14/2017 [facility] Respitory Rate 16 03/28/2017 [facility] Systolic (mm Hg) 108 03/28/2017 [facility] Diastolic (mm Hg) 55 03/28/2017 [facility] Respitory Rate 16 03/28/2017 [facility] Systolic (mm Hg) 100 03/28/2017 [facility] Diastolic (mm Hg) 57 03/28/2017 [facility] Respitory Rate 17 03/28/2017 [facility] Systolic (mm Hg) 108 03/28/2017 [facility] Diastolic (mm Hg) 51 03/28/2017 [facility] Heart Rate 81 03/28/2017 [facility] BMI Calculated 42.21 03/28/2017 [facility] Weight 118.636 03/28/2017 [facility] Height 167.64 cm 03/27/2017 [facility] Spine Encounters Location Location Encounter Encounter Reason Attending ADM DC Status Source Details Type Number For Provider Date Date Visit [facility] Day [id number] [facility] 03/28 03/29 [facility] Ortho [facility] Spine [facility] [id number] [facility] 04/18 04/19 [facility]o [facility] Spine [facility] [id number] [facility] 06/06 06/07 [facility] Ortho [facility] and [facility] Spine Spine [facility] [id number] [facility] 07/18 07/19 [facility] Ortho [facility] and [facility] Sp[facility] Spine [facility] Procedures Procedure Code Date Perfomer Comments Source Injection [id number] 07/18/2017 [facility] Lumbar epidural [id number] 04/18/2017 Diagnostic/ther Ortho and block<sup>1</sup> apuetic Spine bilateral L2-L5 medial branch blocks Injection of facet [id number] 03/28/2017 [facility] joint Spine Sling procedure of [id number] 09/22/20152012 procedure [facility] Orth[facility] and bladder on bladder Spine neck<sup>2</sup> Sling procedure of [id number] 09/22/20152012 procedure Ortho and bladder on bladder Spine neck<sup>1</sup> Hip [id number] 09/22/2014 [id number] left Ortho and replacement<sup>3, hip repair Spine 4</sup> Hip [id number] 09/22/2014 [id number] left Ortho and replacement<sup>2, hip repair Spine 3</sup> Hip [id number] 09/22/2013 right [facility]o and replacement<sup>5</ Spine sup> Hip [id number] 09/22/2013 right Ortho and replacement<sup>4</ Spine sup> Insertion of [id number] 09/22/2007 pain pump 2007 Ortho and infusion and 2014 Spine pump<sup>6</sup> Insertion of [id number] 09/22/2007 pain pump 2007 Ortho and infusion and 2014 Spine pump<sup>5</sup> Carpal tunnel [id number] 09/22/2005 Ortho and release Spine Tonsillectomy [id number] 09/22/1965 [facility]
[2018-12-02 17:18] LABS: Absolute Lymphocytes (CBC) 2.3 K/uL (0.7-4.9); Absolute Monocytes 1.9 K/uL (0.1-1.3); Absolute Neutrophil 3.6 K/uL (1.8-8.0); Hematocrit 28.2 % (36.0-45.0); MPV 8.5 fL (7.6-11.3); RBC Red Blood Cell Count 3.14 M/uL (3.86-4.86)
[2018-12-02] MEDS ORDERED: NA CHLORIDE 0.9% 1,000 ML ONE (17:21)
[2018-12-02 17:25] LABS: Protime INR 1.43
[2018-12-02 17:42] LABS: ALT/SGPT 18 U/L (12-78); AST/SGOT 17 U/L (15-37); Albumin 2.5 g/dL (3.4-5.0); Alkaline Phosphatase 115 U/L (45-117); BUN Blood Urea Nitrogen 24 mg/dL (7-18); Bicarbonate 23 mmol/L (21-32); Bilirubin Direct 0.5 mg/dL (0-0.2); Bilirubin Total 0.9 mg/dL (0.2-1.0); Glucose Level 127 mg/dL (74-106); Lipase 58 U/L (73-393); Magnesium 2.2 mg/dL (1.8-2.4); NT PRO-BNP 172 pg/mL (<125); Potassium 3.4 mmol/L (3.5-5.1); Protein, Total 7.7 g/dL (6.4-8.2); Sodium Level 135 mmol/L (136-145); Troponin (Emerg Dept Use Only) < 0.02 ng/mL (0.0-0.045)
[2018-12-02] MEDS ORDERED: FENTANYL CITR 100 MCG/2 ML ONE (18:08)
[2018-12-02] MEDS ORDERED: FAMOTIDINE 20 MG/2 ML VIAL IV ONE (18:08)
[2018-12-02] MEDS ORDERED: POTASSIUM 25 MEQ EFFERV TAB ONE (18:08)
--- NOTE | 2018-12-02 18:23 | ER ---
Nurse's Notes [facility] Name: Karina Acosta Age: 57 yrs Sex: Female : 1960 Arrival Date: 12/02/2018 Time: 16:16 Bed 23 Private MD: Rafael Vega Diagnosis: Cellulitis and acute lymphangitis of other parts of limb;Anemia, unspecified;Gastrointestinal hemorrhage, unspecified-guaiac trace positive;Hypokalemia Presentation: 12/02 16:29 Presenting complaint: Patient states: I was sent here for evaluation from my PA's sg office, they think that I am very dehydrated, I have some sores that need attention too, and melva also been vomiting for several days. Transition of care: patient was not received from another setting of care. Onset of symptoms was December 02, 2018. Risk Assessment: Do you want to hurt yourself or someone else? Patient reports no desire to harm self or others. Initial Sepsis Screen: Does the patient meet any 2 criteria? No. Patient's initial sepsis screen is negative. Does the patient have a suspected source of infection? No. Patient's initial sepsis screen is negative. Care prior to arrival: None. 16:29 Method Of Arrival: Ambulatory 16:29 Acuity: CASTRO 3 sg Historical: - Allergies: 16:31 PENICILLINS; sg - PMHx: 16:31 Hypertension; sg - Immunization history:: Adult Immunizations up to date. - Social history:: Smoking status: Patient/guardian denies using tobacco. - Ebola Screening: : Patient negative for fever greater than or equal to 101.5 degrees Fahrenheit, and additional compatible Ebola Virus Disease symptoms Patient denies exposure to infectious person Patient denies travel to an Ebola-affected area in the 21 days before illness onset No symptoms or risks identified at this time. Screenin:30 Abuse screen: Denies threats or abuse. Denies injuries from another. Nutritional ca1 screening: No deficits noted. Tuberculosis screening: No symptoms or risk factors identified. Fall Risk None identified. Assessment: 16:25 General: Appears in no apparent distress. comfortable, Behavior is calm, cooperative, ca1 appropriate for age. Pain: Complains of pain in abdomen and right arm Pain currently is 8 out of 10 on a pain scale. Neuro: Level of Consciousness is awake, alert, obeys commands, Oriented to person, place, time, situation, Appropriate for age. Cardiovascular: Heart tones S1 S2 present Capillary refill < 3 seconds Patient's skin is warm and dry. Respiratory: Airway is patent Respiratory effort is even, unlabored, Respiratory pattern is regular, symmetrical, Breath sounds are clear bilaterally. GI: Abdomen is round non-distended, Bowel sounds present X 4 quads. Abd is soft X 4 quads Abdomen is tender to palpation X 4 quads. Reports constipation, for 1 week. : No deficits noted. No signs and/or symptoms were reported regarding the genitourinary system. EENT: Oral mucosa is moist. Lesions noted. on inner R cheek. Derm: Skin is healthy with good turgor, has lesions on Right arm that is ecchymotic and blistered in the middle. Skin is pink, warm \T\ dry. Musculoskeletal: Circulation, motion, and sensation intact. Capillary refill < 3 seconds. 17:31 Reassessment: Patient appears in no apparent distress at this time. Patient and/or ca1 family updated on plan of care and expected duration. Pain level reassessed. Patient is alert, oriented x 3, equal unlabored respirations, skin warm/dry/pink. 18:11 Reassessment: Patient appears in no apparent distress at this time. Patient and/or ca1 family updated on plan of care and expected duration. Pain level reassessed. Patient is alert, oriented x 3, equal unlabored respirations, skin warm/dry/pink. 19:00 Reassessment: Patient appears in no apparent distress at this time. Patient and/or ca1 family updated on plan of care and expected duration. Pain level reassessed. Patient is alert, oriented x 3, equal unlabored respirations, skin warm/dry/pink. Awaiting room assignment. 20:00 Reassessment: Patient appears in no apparent distress at this time. Patient and/or ca1 family updated on plan of care and expected duration. Pain level reassessed. Patient is alert, oriented x 3, equal unlabored respirations, skin warm/dry/pink. 20:30 Reassessment: called for report. 4th will call back when pt is assigned to a nurse. ca1 Vital Signs: 16:29 BP 145 / 80; Pulse 82; Resp 16; Pulse Ox 99% on R/A; Pain 7/10; sg 17:30 BP 90 / 61; Pulse 107; Resp 19; Pulse Ox 96% on R/A; ca1 18:11 BP 106 / 62; Pulse 103; Resp 19; Pulse Ox 99% on R/A; ca1 18:47 BP 106 / 69 Supine; Pulse 101; lt1 18:47 BP 109 / 61 Sitting; Pulse 108; lt1 18:49 BP 111 / 70 Standing; Pulse 116; lt1 19:40 BP 101 / 61; Pulse 94; Resp 19; Pulse Ox 100% on R/A; ca1 20:30 BP 108 / 62; Pulse 96; Resp 19; Pulse Ox 100% on R/A; ca1 ED Course: 16:16 Patient arrived in ED. as 16:17 Rafael Vega MD is Private Physician. as 16:24 Roosevelt Horowitz MD is Attending Physician. brina 16:28 Caro Gonzales, DENIS is Primary Nurse. ca1 16:29 Arm band placed on. sg 16:30 Triage completed. sg 16:30 Patient has correct armband on for positive identification. Placed in gown. Bed in low ca1 position. Call light in reach. Side rails up X 1. personnel monitor on. Pulse ox on. NIBP on. Warm blanket given. 16:50 Inserted saline lock: 20 gauge in left antecubital area, using aseptic technique. Blood ca1 collected. 17:04 First set of blood cultures drawn. ca1 17:20 Second set of blood cultures drawn. ca1 17:30 EKG done, by sales technician. reviewed by Roosevelt Horowitz MD. sm3 18:16 XRAY Chest (1 view) In Process Unspecified. EDMS 18:21 Evelyn English MD is Hospitalizing Provider. brina 20:31 IV discontinued, intact, bleeding controlled, No redness/swelling at site. Pressure ca1 dressing applied. 20:31 No provider procedures requiring assistance completed. ca1 Administered Medications: 16:55 Drug: NS 0.9% 1000 ml Route: IV; Rate: 125 ml/hr; Site: left antecubital; ca1 19:06 Follow up: IV Status: Infusion continued upon admission ca1 20:33 Follow up: IV Status: Infusion continued upon admission ca1 17:55 Drug: Potassium Effervescent Tablet 25 mEq Route: PO; ca1 19:07 Follow up: Response: No adverse reaction ca1 17:55 Drug: fentaNYL (PF) 25 mcg Route: IVP; Site: left antecubital; ca1 19:07 Follow up: Response: No adverse reaction; Pain is unchanged, physician notified ca1 18:00 Drug: Pepcid 20 mg Route: IVP; Site: left antecubital; ca1 19:07 Follow up: Response: No adverse reaction ca1 18:30 Drug: fentaNYL (PF) 25 mcg Route: IVP; Site: left antecubital; ca1 19:42 Follow up: Response: No adverse reaction; Pain is decreased ca1 18:35 Drug: NS 0.9% 500 ml Route: IV; Rate: bolus; Site: left antecubital; ca1 19:06 Follow up: Response: No adverse reaction; IV Status: Infusion continued upon admission ca1 18:40 Drug: ProTONIX 40 mg Route: IVP; Site: left antecubital; ca1 19:41 Follow up: Response: No adverse reaction ca1 18:42 Drug: Cefepime 1 grams Route: IVPB; Rate: 200 ml/hr; Infused Over: 30 mins; Site: left ca1 antecubital; 19:41 Follow up: Response: No adverse reaction; IV Status: Completed infusion ca1 19:40 Drug: vancoMYCIN 1 grams Route: IVPB; Infused Over: 2 hrs; Site: left antecubital; ca1 20:33 Follow up: IV Status: Infusion continued upon admission ca1 Outcome: 18:22 Decision to Hospitalize by Provider. [facility] 20:48 Admitted to Tele accompanied by tech, via wheelchair, room 420, with chart, Report ca1 called to Mariam Dolan RN 20:48 Condition: stable 20:48 Instructed on the need for admit, Demonstrated understanding of instructions. 21:13 Patient left the ED. ca1 Signatures: Dispatcher [employer] EDMS Hong Martinez RN RN sg Anderson, Corey, MD MD cha Martinez, Amelia as Montes, Shakira sm3 Caro Gonzales RN RN ca1 Tran, Leah lt1 Corrections: (The following items were deleted from the chart) 17:31 16:50 First set of blood cultures drawn ca1 ca1 18:08 16:25 EENT: No deficits noted. No signs and/or symptoms were reported regarding the ca1 EENT system. ca1 18:50 18:47 BP 111 / 70 Standing; Pulse 116bpm; lt1 lt1 20:31 16:25 Derm: Skin is healthy with good turgor, has lesions on Right arm that is ca1 ecchymotic and blistered in the middle. Skin is pink, warm \T\ dry. ca1
--- NOTE | 2018-12-02 18:23 | EDPHYS ---
Physician Documentation [facility] Name: Karina Acosta Age: 57 yrs Sex: Female : 1960 Arrival Date: 12/02/2018 Time: 16:16 Bed 23 Private MD: Rafael Vega ED Physician Roosevelt Horowitz HPI: 12/02 16:48 This 57 yrs old Female presents to ER via Ambulatory with complaints of brina Vomiting, Constipation, Skin Sore(s). 16:48 The patient presents to the emergency department with nausea, vomiting. Onset: The brina symptoms/episode began/occurred 3 day(s) ago. Historical: - Allergies: 16:31 PENICILLINS; sg - PMHx: 16:31 Hypertension; sg - Immunization history:: Adult Immunizations up to date. - Social history:: Smoking status: Patient/guardian denies using tobacco. - Ebola Screening: : Patient negative for fever greater than or equal to 101.5 degrees Fahrenheit, and additional compatible Ebola Virus Disease symptoms Patient denies exposure to infectious person Patient denies travel to an Ebola-affected area in the 21 days before illness onset No symptoms or risks identified at this time. ROS: 16:49 Constitutional: Negative for fever, chills, and weight loss, Eyes: Negative for injury, brina pain, redness, and discharge, ENT: Negative for injury, pain, and discharge, Neck: Negative for injury, pain, and swelling, Cardiovascular: Negative for chest pain, palpitations, and edema, Respiratory: Negative for shortness of breath, cough, wheezing, and pleuritic chest pain, Back: Negative for injury and pain, : Negative for injury, bleeding, discharge, and swelling, MS/Extremity: Negative for injury and deformity, Neuro: Negative for headache, weakness, numbness, tingling, and seizure, Psych: Negative for depression, anxiety, suicide ideation, homicidal ideation, and hallucinations, Allergy/Immunology: Negative for hives, rash, and allergies, Endocrine: Negative for neck swelling, polydipsia, polyuria, polyphagia, and marked weight changes. 16:49 Abdomen/GI: Positive for nausea, vomiting. 16:49 Skin: Positive for ecchymosis, erythema, swelling, of the right arm. Exam: 16:49 Constitutional: This is a well developed, well nourished patient who is awake, alert, brina and in no acute distress. Head/Face: Normocephalic, atraumatic. Eyes: Pupils equal round and reactive to light, extra-ocular motions intact. Lids and lashes normal. Conjunctiva and sclera are non-icteric and not injected. Cornea within normal limits. Periorbital areas with no swelling, redness, or edema. ENT: Nares patent. No nasal discharge, no septal abnormalities noted. Tympanic membranes are normal and external auditory canals are clear. Oropharynx with no redness, swelling, or masses, exudates, or evidence of obstruction, uvula midline. Mucous membranes moist. Neck: Trachea midline, no thyromegaly or masses palpated, and no cervical lymphadenopathy. Supple, full range of motion without nuchal rigidity, or vertebral point tenderness. No Meningismus. Chest/axilla: Normal chest wall appearance and motion. Nontender with no deformity. No lesions are appreciated. Cardiovascular: Regular rate and rhythm with a normal S1 and S2. No gallops, murmurs, or rubs. Normal PMI, no JVD. No pulse deficits. Respiratory: Lungs have equal breath sounds bilaterally, clear to auscultation and percussion. No rales, rhonchi or wheezes noted. No increased work of breathing, no retractions or nasal flaring. Abdomen/GI: Soft, non-tender, with normal bowel sounds. No distension or tympany. No guarding or rebound. No evidence of tenderness throughout. Back: No spinal tenderness. No costovertebral tenderness. Full range of motion. Female : Normal external genitalia. MS/ Extremity: Pulses equal, no cyanosis. Neurovascular intact. Full, normal range of motion. Neuro: Awake and alert, GCS 15, oriented to person, place, time, and situation. Cranial nerves II-XII grossly intact. Motor strength 5/5 in all extremities. Sensory grossly intact. Cerebellar exam normal. Normal gait. Psych: Awake, alert, with orientation to person, place and time. Behavior, mood, and affect are within normal limits. 16:49 Skin: abscess, that is small, of the right arm, with fluctuance, with induration, with surrounding cellulitis, that is mild, cellulitis. Vital Signs: 16:29 BP 145 / 80; Pulse 82; Resp 16; Pulse Ox 99% on R/A; Pain 7/10; sg 17:30 BP 90 / 61; Pulse 107; Resp 19; Pulse Ox 96% on R/A; ca1 18:11 BP 106 / 62; Pulse 103; Resp 19; Pulse Ox 99% on R/A; ca1 18:47 BP 106 / 69 Supine; Pulse 101; lt1 18:47 BP 109 / 61 Sitting; Pulse 108; lt1 18:49 BP 111 / 70 Standing; Pulse 116; lt1 19:40 BP 101 / 61; Pulse 94; Resp 19; Pulse Ox 100% on R/A; ca1 20:30 BP 108 / 62; Pulse 96; Resp 19; Pulse Ox 100% on R/A; ca1 MDM: 16:24 Patient medically screened. [facility] 16:50 Data reviewed: vital signs, nurses notes, lab test result(s), EKG, radiologic studies, brina plain films. 12/02 16:47 Order name: Basic Metabolic Panel; Complete Time: 17:43 [facility] 12/02 16:47 Order name: CBC with Diff [facility] 12/02 16:47 Order name: LFT's; Complete Time: 17:43 [facility] 12/02 16:47 Order name: Magnesium; Complete Time: 17:43 [facility] 12/02 16:47 Order name: NT PRO-BNP; Complete Time: 17:43 [facility] 12/02 16:47 Order name: PT-INR; Complete Time: 17:43 [facility] 12/02 16:47 Order name: Troponin (emerg Dept Use Only); Complete Time: 17:43 [facility] 12/02 16:47 Order name: Blood Culture Adult (2) [facility] 12/02 16:47 Order name: Type And Screen; Complete Time: 18:17 [facility] 12/02 16:47 Order name: Lipase; Complete Time: 17:43 [facility] 12/02 17:43 Order name: Procalcitonin; Complete Time: 18:17 [facility] 12/02 17:53 Order name: Manual Differential EDMS 12/02 18:10 Order name: ABO/RH no charge; Complete Time: 18:17 EDMS 12/02 18:18 Order name: AMMONIA [facility] 12/02 16:47 Order name: XRAY Chest (1 view); Complete Time: 18:55 [facility] 12/02 18:38 Order name: Occult Blood--Ancillary bd 12/02 19:42 Order name: Urine Dipstick--Ancillary (enter results) mw2 12/02 19:56 Order name: CBC with Automated Diff [facility] 12/02 19:56 Order name: CBC with Automated Diff [facility] 12/02 19:56 Order name: Comprehensive Metabolic Panel [facility] 12/02 19:56 Order name: Comprehensive Metabolic Panel [facility] 12/02 16:47 Order name: EKG; Complete Time: 16:48 [facility] 12/02 16:47 Order name: Cardiac monitoring; Complete Time: 17:15 [facility] 12/02 16:47 Order name: EKG - Nurse/Tech; Complete Time: 17:15 [facility] 12/02 16:47 Order name: IV Saline Lock; Complete Time: 17:15 [facility] 12/02 16:47 Order name: Labs collected and sent; Complete Time: 17:15 [facility] 12/02 16:47 Order name: O2 Per Protocol; Complete Time: 17:15 [facility] 12/02 16:47 Order name: O2 Sat Monitoring; Complete Time: 17:15 [facility] 12/02 18:20 Order name: Orthostatics; Complete Time: 18:39 [facility] 12/02 19:56 Order name: CONS Pharmacy Consult [facility] 12/02 19:56 Order name: Heart Healthy EDMD Administered Medications: 16:55 Drug: NS 0.9% 1000 ml Route: IV; Rate: 125 ml/hr; Site: left antecubital; ca1 19:06 Follow up: IV Status: Infusion continued upon admission ca1 20:33 Follow up: IV Status: Infusion continued upon admission ca1 17:55 Drug: Potassium Effervescent Tablet 25 mEq Route: PO; ca1 19:07 Follow up: Response: No adverse reaction ca1 17:55 Drug: fentaNYL (PF) 25 mcg Route: IVP; Site: left antecubital; ca1 19:07 Follow up: Response: No adverse reaction; Pain is unchanged, physician notified ca1 18:00 Drug: Pepcid 20 mg Route: IVP; Site: left antecubital; ca1 19:07 Follow up: Response: No adverse reaction ca1 18:30 Drug: fentaNYL (PF) 25 mcg Route: IVP; Site: left antecubital; ca1 19:42 Follow up: Response: No adverse reaction; Pain is decreased ca1 18:35 Drug: NS 0.9% 500 ml Route: IV; Rate: bolus; Site: left antecubital; ca1 19:06 Follow up: Response: No adverse reaction; IV Status: Infusion continued upon admission ca1 18:40 Drug: ProTONIX 40 mg Route: IVP; Site: left antecubital; ca1 19:41 Follow up: Response: No adverse reaction ca1 18:42 Drug: Cefepime 1 grams Route: IVPB; Rate: 200 ml/hr; Infused Over: 30 mins; Site: left ca1 antecubital; 19:41 Follow up: Response: No adverse reaction; IV Status: Completed infusion ca1 19:40 Drug: vancoMYCIN 1 grams Route: IVPB; Infused Over: 2 hrs; Site: left antecubital; ca1 20:33 Follow up: IV Status: Infusion continued upon admission ca1 Disposition: 12/02/18 18:22 Hospitalization ordered by Evelyn English for Inpatient Admission. Preliminary diagnosis are Cellulitis and acute lymphangitis of other parts of limb, Anemia, unspecified, Gastrointestinal hemorrhage, unspecified - guaiac trace positive, Hypokalemia. - Bed requested for Telemetry/MedSurg (Inpatient). - Status is Inpatient Admission. ca1 - Condition is Fair. - Problem is new. - Symptoms have improved. UTI on Admission? Yes Signatures: Dispatcher [employer] EDMS Hong Martinez RN RN sg Anderson, Corey, MD MD cha Garcia, Cindy, RN RN Caro Gonzales RN RN ca1 Corrections: (The following items were deleted from the chart) 18:38 18:22 Hospitalization Ordered by Evelyn English MD for Inpatient Admission. Preliminary [facility] diagnosis is Cellulitis and acute lymphangitis of other parts of limb; Anemia, unspecified. Bed requested for Telemetry/MedSurg (Inpatient). Status is Inpatient Admission. Condition is Fair. Problem is new. Symptoms have improved. UTI on Admission? Yes. [facility] 18:56 18:38 12/02/2018 18:22 Hospitalization Ordered by Evelyn English MD for Inpatient [facility] Admission. Preliminary diagnosis is Cellulitis and acute lymphangitis of other parts of limb; Anemia, unspecified; Gastrointestinal hemorrhage, unspecified - guaiac trace positive. Bed requested for Telemetry/MedSurg (Inpatient). Status is Inpatient Admission. Condition is Fair. Problem is new. Symptoms have improved. UTI on Admission? Yes. [facility] 20:19 18:56 12/02/2018 18:22 Hospitalization Ordered by Evelyn English MD for Inpatient Admission. Preliminary diagnosis is Cellulitis and acute lymphangitis of other parts of limb; Anemia, unspecified; Gastrointestinal hemorrhage, unspecified - guaiac trace positive; Hypokalemia. Bed requested for Telemetry/MedSurg (Inpatient). Status is Inpatient Admission. Condition is Fair. Problem is new. Symptoms have improved. UTI on Admission? Yes. [facility] 21:13 20:19 12/02/2018 18:22 Hospitalization Ordered by Evelyn English MD for Inpatient ca1 Admission. Preliminary diagnosis is Cellulitis and acute lymphangitis of other parts of limb; Anemia, unspecified; Gastrointestinal hemorrhage, unspecified - guaiac trace positive; Hypokalemia. Bed requested for Telemetry/MedSurg (Inpatient). Status is Inpatient Admission. Condition is Fair. Problem is new. Symptoms have improved. UTI on Admission? Yes.
--- NOTE | 2018-12-02 18:24 | RAD REPORT ---
EXAM DESCRIPTION: RAD - Chest Single View - 12/02/2018 6:15 pm CLINICAL HISTORY: Cough, abdominal pain, vomiting COMPARISON: None. TECHNIQUE: AP portable chest image was obtained 1726 hour . FINDINGS: No peripheral mass or consolidation. No significant failure or volume overload suspected. Stranding along the medial right lung base is suspected to be chronic atelectasis. Heart and vasculat ure are normal. No measurable pleural effusion and no pneumothorax. Thoracolumbar scoliosis is presen t with rods in place. No hardware fracture is seen. No acute aortic findings suspected. IMPRESSION: Lung parenchymal opacification medial right base is suspected be chronic atelectasis sarita ng the scoliotic curvature of the spine. No failure or volume overload.
[2018-12-02] MEDS ORDERED: PANTOPRAZOLE 40 MG INJ ONE (18:56)
[2018-12-02] MEDS ORDERED: CEFEPIME 1 GM/100 ML BAG IV ONE (18:56)
[2018-12-02] MEDS ORDERED: NA CHLORIDE 0.9% 500 ML ONE (18:56)
[2018-12-02] MEDS ORDERED: WATER FOR INJ,STERILE 10 ML ONE (18:57)
[2018-12-02] MEDS ORDERED: VANCOMYCIN/NS 1 gm 1 GM/250 ML BAG IV ONE (19:00)
[2018-12-02 19:15] LABS: Anisocytosis 1+; Blood Morphology Comment NOTED (NOT SEEN); Macrocytosis 1+; Poikilocytosis 1+
[2018-12-02 19:39] LABS: Platelet Estimate DECR
[2018-12-02] MEDS ORDERED: ONDANSETRON 4 MG/2 ML VIAL IV PRN (19:54)
[2018-12-02] MEDS: NA CHLORIDE 0.9% 1,000 ML IV SCH (20:00)
[2018-12-02 20:09] LABS: Urine Blood NEGATIVE (NEG); Urine Glucose NEGATIVE (NEG); Urine Protein 1+ (NEG)
[2018-12-02] MEDS: MORPHINE 2 MG/ML SYR IV PRN (21:37)
[2018-12-03] MEDS: MORPHINE 2 MG/ML SYR IV PRN (00:58)
[2018-12-03] MEDS: ACETAMINOPHEN 500 MG TAB PO PRN ×2 (01:02→14:09)
[2018-12-03] MEDS ORDERED: MORPHINE 4 MG/ML SYR IV ONE (03:18)
[2018-12-03] MEDS ORDERED: HYDROCORTISONE SUC 100 MG INJ IV ONE (03:19)
[2018-12-03] MEDS: NA CHLORIDE 0.9% 1,000 ML IV SCH ×4 (03:47→23:43)
[2018-12-03] MEDS: LACTULOSE 20 GM/30 ML UCUP PO SCH ×3 (03:47→15:15)
[2018-12-03 05:30] LABS: Absolute Lymphocytes (CBC) 2.5 K/uL (0.7-4.9); Absolute Monocytes 1.6 K/uL (0.1-1.3); Absolute Neutrophil 4.1 K/uL (1.8-8.0); Basophils % 0.1 % (0-1.3); Eosinophils % 1.7 % (0-4.4); Hematocrit 23.8 % (36.0-45.0); Lymphocytes % 29.5 % (15.3-44.8); MPV 7.9 fL (7.6-11.3); RBC Red Blood Cell Count 2.67 M/uL (3.86-4.86)
[2018-12-03 05:42] LABS: Albumin 2.1 g/dL (3.4-5.0); Protein, Total 6.3 g/dL (6.4-8.2)
[2018-12-03 05:45] LABS: Monocytes % 19.2 % (3.3-12.3)
[2018-12-03] MEDS: PANTOPRAZOLE 40MG TABLET PO SCH (06:30)
[2018-12-03] MEDS: MORPHINE 4 MG/ML SYR IV PRN ×3 (06:30→23:43)
[2018-12-03] MEDS ORDERED: FLEET ENEMA ADULT PR PRN (08:00)
[2018-12-03] MEDS ORDERED: HOME MED 1 EA UNK (Linaclotide [Linzess] 290 MCG) PO SCH (09:00)
[2018-12-03] MEDS ORDERED: ALGAL OIL PO SCH (09:00)
[2018-12-03] MEDS ORDERED: LEVOMEFOLATE PO SCH (09:00)
[2018-12-03] MEDS ORDERED: METFORMIN HCL 500 MG TAB PO SCH (09:00)
[2018-12-03] MEDS: RANITIDINE 150 MG TABLET PO SCH (09:12)
[2018-12-03] MEDS: TOPIRAMATE 25 MG TAB PO SCH ×2 (09:15→20:42)
[2018-12-03] MEDS: predniSONE 10 MG TAB PO SCH (09:15)
[2018-12-03] MEDS: LISINOPRIL 10 MG TAB PO SCH (09:16)
[2018-12-03] MEDS: METOPROLOL XL 100 MG TAB PO SCH (09:17)
[2018-12-03] MEDS: LIDOCAINE VISCOUS 2% SOLN 15 ML UDC PO PRN ×2 (10:30→20:42)
--- NOTE | 2018-12-03 10:38 | EKG ---
Test Date: 2018-12-02 Test Time: 16:59:34 Portable Pinch Riveter: JOHNATHON MEASUREMENT RESULTS: Intervals: Rate: 112 HI: 118 QRSD: 80 QT: 344 QTc: 469 [place]: P: 14 HI: 118 QRS: 33 T: -2 INTERPRETIVE STATEMENTS: Sinus tachycardia Inferior infarct, age undetermined Abnormal ECG Compared to ECG 04/29/2007 16:54:52 Myocardial infarct finding now present Sinus rhythm no longer present Electronically Signed On 12-03-18 08:15:01 CDT by Kyle Deleon
[2018-12-03 11:24] LABS: Hematocrit 24.2 % (36.0-45.0)
[2018-12-03] MEDS: DOXYCYCLINE 100 MG in NA CHLORIDE 0.9% 100 ML IVPB SCH ×2 (12:03→20:42)
[2018-12-03] MEDS ORDERED: TRAMADOL HCL 50 MG TAB PO ONE (17:00)
--- NOTE | 2018-12-03 17:00 | P.PN ---
Subjective Date of Service: 12/03/18 Patient seen and examined at bedside with RN. Chart reviewed. Case discussed with hematology at this time. No complaints to offer overnight. Complaints and this morning on the right hand. Review of Systems 10-point ROS is otherwise unremarkable Physical Examination - Vital Signs Temperature: 99.1 F Blood Pressure: 123/62 Pulse: 122 Respirations: 16 Pulse Ox (%): 97 - Physical Exam General: Alert, In no apparent distress HEENT: Atraumatic, PERRLA, EOMI Neck: Supple, JVD not distended Respiratory: Clear to auscultation bilaterally, Normal air movement Cardiovascular: Regular rate/rhythm, Normal S1 S2 Gastrointestinal: Normal bowel sounds, No tenderness Musculoskeletal: Erythema, Tenderness, Warmth Integumentary: No rashes Neurological: Normal speech, Normal tone, Normal affect Lymphatics: Axilla lymphadenopathy - Studies Laboratory Data (last 24 hrs) 12/02/18 17:04: PT 16.6 H, INR 1.43 12/02/18 17:04: WBC 7.7, Hgb 9.3 L, Hct 28.2 L, Plt Count 110 L 12/02/18 17:04: Sodium 135 L, Potassium 3.4 L, BUN 24 H, Creatinine 1.03, Glucose 127 H, Magnesium 2.2, Total Bilirubin 0.9, AST 17, ALT 18, Alkaline Phosphatase 115, Lipase 58 L Microbiology Data (last 24 hrs): 12/02/18 18:38 Stool Occult Blood - Final Medications List Reviewed: Yes Assessment And Plan - Current Problems (Diagnosis) (1) Lymphangitis Current Visit: Yes Status: Acute Plan: Patient with acute lymphangitis of the right arm. 3 papular lesions noted on the right arm. May be concerning for skin manifestation with T-cell leukemia, lymphoma, HIV or hepatitis. -patient started on IV doxycycline at this time -cultures pending at this time -will get lab work for hepatitis, HIV, p-ANCA, C ANCA, CINTHYA, ESR, CRP. -follow up with results -peripheral smear positive for monocyte no blasts noted. Concerning for T-cell leukemia. (2) Anemia Current Visit: Yes Status: Acute Plan: Hemoglobin of 7.9. Unknown etiology of anemia at this time -stool occult pending at this time -most likely secondary to T-cell leukemia however was complete workup for any sort of GI bleeding -patient denied having any melanotic stool or hematemesis at this time -will monitor closely. -Heme-Onc consulted at this time Qualifiers: Anemia type: unspecified type Qualified Code(s): D64.9 - Anemia, unspecified (3) Thrombocytopenia Current Visit: Yes Status: Acute Plan: Thrombocytopenia with platelets of 71 -no acute bleeding noted -Hematology consulted (4) T-cell leukemia Current Visit: Yes Status: Acute Plan: Patient with possible history of lymphoma in the past for patient -hematology consult at this time -abnormal peripheral smear at this time (5) Raynauds syndrome Current Visit: Yes Status: Chronic Qualifiers: Raynaud?s-associated gangrene presence: without gangrene Qualified Code(s) : I73.00 - Raynaud's syndrome without gangrene - Plan Pending clinical improvement at this time. Will continue IV antibiotics until wound cultures results. Will also work up patient for any other autoimmune disease along with hepatitis and HIV. Discharge Plan: Other Plan to discharge in: Greater than 2 days - Code Status/Comfort Care Code Status Assessed: Yes Critical Care: No
[2018-12-03] MEDS: ATORVASTATIN 10 MG TAB PO SCH (20:42)
[2018-12-03 20:53] LABS: RPR (Rapid Plasma Reagin) NON-REACT (NON-REACT); RPR Titer ND
[2018-12-03] MEDS ORDERED: HOME MED 1 EA UNK (Vortioxetine Hydrobromide [Trintellix] 20 MG) PO SCH (21:00)
[2018-12-04] MEDS: LIDOCAINE VISCOUS 2% SOLN 15 ML UDC PO PRN ×3 (04:42→20:47)
[2018-12-04] MEDS: MORPHINE 4 MG/ML SYR IV PRN ×4 (04:42→20:49)
[2018-12-04] MEDS: PANTOPRAZOLE 40MG TABLET PO SCH (05:28)
--- NOTE | 2018-12-04 08:17 | P.HP ---
Certification for Inpatient Patient admitted to: Inpatient With expected LOS: >2 Midnights Patient will require the following post-hospital care: None Practitioner: I am a practitioner with admitting privileges, knowledge of patient current condition, hospital course, and medical plan of care. Services: Services provided to patient in accordance with Admission requirements found in Title 42 Section 412.3 of the Code of Federal Regulations Patient History Date of Service: 12/02/18 Reason for admission: Eccymotic bullous blisters on the RUE; thrombocytopenia/ anemia History of Present Illness: Patient is a 57-year-old female who was admitted to the hospital because of mainly GI complaints including vomiting and constipation. However she states she has been feeling very poorly for the last week and. Around that time she developed these blisters with ecchymotic features on the right upper extremity. It became more pronounced and painful. She started having generalized weakness and fatigue. She was not feeling like herself so she came into the hospital for further evaluation. In the emergency room her lab workup revealed she was anemic and thrombocytopenic as well. Patient also has a coagulopathy with elevated PT and INR. I think patient would benefit from Hematology consultation. Hopefully will be able to get him to see the patient while in the hospital. If not she may need transfer as it may be difficult to pinpoint exactly what is causing these lesions without a specialty assistance. But for now will go ahead and admit her to the hospital and work her up with additional autoimmune labs as well as looking for infectious causes of the bullous, ecchymotic lesions Allergies Penicillins Adverse Reaction (Verified 12/02/18 22:03) Hives Home Medications: Esomeprazole Magnesium [Nexium 24Hr] 2 cap PO DAILY 12/03/18 Levomefolate/Algal Oil [Deplin-Algal Oil 15 mg Capsule] 1 each PO DAILY Linaclotide [Linzess] 290 mcg PO DAILY 12/03/18 Lisinopril [Prinivil] 10 mg PO DAILY 12/03/18 Metformin HCl 1,000 mg PO BID 12/03/18 Metoprolol Succinate [Toprol Xl] 100 mg PO DAILY 12/03/18 Morphine [Morphine Sulfate] 5 mg IT DIRECTED 12/03/18 Ranitidine [Zantac] 150 mg PO DAILY 12/03/18 Simvastatin 20 mg PO BEDTIME 12/03/18 Topiramate [Topamax] 50 mg PO BID 12/03/18 Vortioxetine Hydrobromide [Brintellix] 20 mg PO BEDTIME 12/03/18 predniSONE [Deltasone] 10 mg PO DAILY 12/03/18 - Past Medical/Surgical History Has patient received pneumonia vaccine in the past: No Diabetic: Yes -: DEPRESSION/BIPOLAR -: COPD -: MIGRANES -: HTN -: OBESITY -: TONSILLECTOMY -: BROKEN ARM -: APPENDECTOMY -: OVARIAN CYSTECTOMY -: HYSTERECTOMY -: ABDOMINAL EXPLORATION -: CHOLICYSTECTOMY -: HERNIA REPAIR, CARPAL TUNNEL - Social History Smoking Status: Former smoker Alcohol use: No CD- Drugs: No Caffeine use: No Place of Residence: Home Review of Systems 10-point ROS is otherwise unremarkable Physical Examination - Vital Signs Temperature: 99.8 F Blood Pressure: 119/58 Pulse: 117 Respirations: 17 Pulse Ox (%): 94 - Physical Exam General: Alert, In no apparent distress, Oriented x3 HEENT: Atraumatic, PERRLA, Mucous membr. moist/pink, EOMI, Sclerae nonicteric Neck: Supple, 2+ carotid pulse no bruit, No LAD, Without JVD or thyroid abnormality Respiratory: Clear to auscultation bilaterally, Normal air movement Cardiovascular: Regular rate/rhythm, Normal S1 S2, No murmurs Gastrointestinal: Normal bowel sounds, Soft and benign, Non-distended, No tenderness Musculoskeletal: No clubbing, No swelling, No tenderness Integumentary: Skin lesion, Tenderness/swelling, Erythema, Other (Ecchymotic bullous lesions that are painful to touch) Neurological: Normal gait, Normal speech, Normal strength at 5/5 x4 extr, Normal tone, Sensation intact, Cranial nerves 3-12 intact, Normal affect Lymphatics: No axilla or inguinal lymphadenopathy - Studies Microbiology Data (last 24 hrs): 12/02/18 18:38 Stool Occult Blood - Final Assessment & Plan - Problems (Diagnosis) (1) Bullous disorder Current Visit: Yes Status: Acute (2) Anemia Current Visit: Yes Status: Acute Qualifiers: Anemia type: unspecified type Qualified Code(s): D64.9 - Anemia, unspecified (3) Thrombocytopenia Current Visit: Yes Status: Acute (4) Raynauds syndrome Current Visit: Yes Status: Chronic Qualifiers: Raynaud?s-associated gangrene presence: without gangrene Qualified Code(s) : I73.00 - Raynaud's syndrome without gangrene (5) Coagulopathy Current Visit: Yes Status: Acute - Plan Plan: 1. Peripheral blood smear review 2. Hematology consultation 3. CBC 4. Patient may need further evaluation by Dermatology 5. Autoimmune studies 6. GI and DVT prophylaxis Discharge Plan: Home Plan to discharge in: Greater than 2 days - Advance Directives Does patient have a Living Will: No Does patient have a Durable POA for Healthcare: No - Code Status/Comfort Care Code Status Assessed: Yes Code Status: Full Code Critical Care: No Time Spent Managing PTS Care (In Minutes): 45
[2018-12-04] MEDS: TOPIRAMATE 25 MG TAB PO SCH ×2 (08:45→20:48)
[2018-12-04] MEDS: LISINOPRIL 10 MG TAB PO SCH (08:46)
[2018-12-04] MEDS: METOPROLOL XL 100 MG TAB PO SCH (08:46)
[2018-12-04] MEDS: predniSONE 10 MG TAB PO SCH (08:47)
[2018-12-04] MEDS: RANITIDINE 150 MG TABLET PO SCH (08:47)
[2018-12-04 08:52] LABS: Absolute Lymphocytes (CBC) 2.6 K/uL (0.7-4.9); Absolute Monocytes 1.6 K/uL (0.1-1.3); Absolute Neutrophil 5.2 K/uL (1.8-8.0); Basophils % 1.2 % (0-1.3); Hematocrit 25.1 % (36.0-45.0); Lymphocytes % 26.8 % (15.3-44.8); MPV 8.1 fL (7.6-11.3); Monocytes % 16.6 % (3.3-12.3)
[2018-12-04 08:56] LABS: Protime INR 1.44
[2018-12-04] MEDS: DOXYCYCLINE 100 MG in NA CHLORIDE 0.9% 100 ML IVPB SCH ×2 (09:12→20:48)
[2018-12-04 09:13] LABS: Albumin 2.1 g/dL (3.4-5.0); Bilirubin Total 0.6 mg/dL (0.2-1.0); Phosphorus 1.9 mg/dL (2.5-4.9); Potassium 3.1 mmol/L (3.5-5.1); Protein, Total 6.8 g/dL (6.4-8.2)
[2018-12-04 10:44] LABS: Anisocytosis 1+; Blood Morphology Comment NOTED (NOT SEEN); Platelet Estimate DECR
[2018-12-04 10:46] LABS: Toxic Granulation PRESENT
[2018-12-04] MEDS ORDERED: METHYLPREDNISOLONE 125 MG INJ IV ONE ×2 (11:00→12:00)
[2018-12-04 11:30] LABS: MPV 7.5 fL (7.6-11.3)
[2018-12-04 11:32] LABS: Platelet Estimate ND
[2018-12-04] MEDS: KCL 20 MEQ/100 mL IVPB 20 MEQ/100 ML BAG IV SCH ×2 (11:33→13:36)
[2018-12-04 12:32] LABS: Ferritin 2091.5 ng/mL (8-388); T4,Total 9.1 ug/dL (4.8-13.9); Thyroid Stimulating Hormone 0.92 uIU/mL (0.360-3.740)
[2018-12-04] MEDS: NA CHLORIDE 0.9% 1,000 ML IV SCH ×2 (12:39→22:00)
--- NOTE | 2018-12-04 13:54 | P.PN ---
Subjective Date of Service: 12/04/18 Chief Complaint: Eccymotic bullous blisters on the RUE; thrombocytopenia/ anemia Subjective: No new changes, Tolerating diet Patient evaluated this morning in her room. Patient has continued pain to right arm where the 3 bullous lesions are noted. Patient otherwise had no other complaints. Tolerating antibiotics. Eating and drinking. Slept through the night without problem. Still pending autoimmune labs <Dontrell Rosario - Last Filed: 12/04/18 13:49> Date of Service: 12/04/18 <Wilber Villarreal - Last Filed: 12/04/18 14:57> Review of Systems General: Unremarkable Eyes: Unremarkable ENT: Unremarkable Respiratory: Unremarkable Cardiovascular: Unremarkable Musculoskeletal: Arm Pain Integumentary: Lesions Neurological: Unremarkable Lymphatics: Unremarkable <Dontrell Rosario - Last Filed: 12/04/18 13:49> Physical Examination - Vital Signs Temperature: 99.2 F Blood Pressure: 103/56 Pulse: 109 Respirations: 16 Pulse Ox (%): 93 - Physical Exam General: Alert, In no apparent distress, Oriented x3, Cooperative HEENT: Normocephalic, PERRLA, Mucous membr. moist/pink Neck: Supple, JVD not distended, No Thyromegaly, No LAD Respiratory: Clear to auscultation bilaterally, Normal air movement Cardiovascular: No edema, Normal pulses, Regular rate/rhythm, Normal S1 S2, No gallops, No rubs, No murmurs Capillary refill: <2 Seconds Gastrointestinal: Normal bowel sounds, Soft and benign, Non-distended, No tenderness, No masses, No rebound Musculoskeletal: No clubbing, No swelling, No contractures, No erythema, No tenderness, No warmth Integumentary: Other (Patient has three large lesion noted to right lateral arm that are red with bollous formations. Lesions are raised and warm to touch. Painful to touch) Neurological: Normal gait, Normal speech, Normal strength at 5/5 x4 extr, Normal tone, Sensation intact, Cranial nerves 3-12 intact, Normal reflexes 2+, Normal affect - Studies Microbiology Data (last 24 hrs): 12/02/18 18:38 Stool Occult Blood - Final Medications List Reviewed: Yes <Dontrell Rosario - Last Filed: 12/04/18 13:49> - Studies Microbiology Data (last 24 hrs): 12/02/18 18:38 Stool Occult Blood - Final <Wilber Villarreal - Last Filed: 12/04/18 14:57> Assessment & Plan - Problems (Diagnosis) (1) Anemia Current Visit: Yes Status: Acute Plan: Monitor H/H. 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 Agree with plan of care. Doubt infectious etiology as her skin condition has been present for a while and procalcitonin was normal. Will DC antibiotics. Case discussed with Hematology- Dr. Montalvo. Peripheral smear was reviewed by Dr. Montalvo along with Pathology. Flow cytometry to be sent out. Patient with Iron deficiency. She may have autoimmune disorder. Will order Solumedrol 60 mg times one. Will monitor closely. Will have Surgery consulted for skin biopsy. Dr. Maloney informed. Lab sent for HIV and Hepatitis. Will continue to monitor CBC. Will add iron supplementation. If improved in the next 24 hours, then will proceed with discharge and her follow up with Hematology as outpatient. Dr. Blas to take over care tomorrow. Continue to monitor serial Lab and exam. Time Spent Managing Pts Care (In Minutes): 55 <Wilber Villarreal - Last Filed: 12/04/18 14:57>
[2018-12-04] MEDS ORDERED: LIDOCAINE 1% 20 ML MDV ONE (15:07)
--- NOTE | 2018-12-04 15:29 | P.CNS ---
Chief Complaint: Eccymotic bullous blisters on the RUE; thrombocytopenia/ anemia Allergies Penicillins Adverse Reaction (Verified 12/02/18 22:03) Hives Home Medications: Esomeprazole Magnesium [Nexium 24Hr] 2 cap PO DAILY 12/03/18 Levomefolate/Algal Oil [Deplin-Algal Oil 15 mg Capsule] 1 each PO DAILY Linaclotide [Linzess] 290 mcg PO DAILY 12/03/18 Lisinopril [Prinivil] 10 mg PO DAILY 12/03/18 Metformin HCl 1,000 mg PO BID 12/03/18 Metoprolol Succinate [Toprol Xl] 100 mg PO DAILY 12/03/18 Morphine [Morphine Sulfate] 5 mg IT DIRECTED 12/03/18 Ranitidine [Zantac] 150 mg PO DAILY 12/03/18 Simvastatin 20 mg PO BEDTIME 12/03/18 Topiramate [Topamax] 50 mg PO BID 12/03/18 Vortioxetine Hydrobromide [Brintellix] 20 mg PO BEDTIME 12/03/18 predniSONE [Deltasone] 10 mg PO DAILY 12/03/18 - Past Medical/Surgical History Diabetic: Yes -: DEPRESSION/BIPOLAR -: COPD -: MIGRANES -: HTN -: OBESITY -: TONSILLECTOMY -: BROKEN ARM -: APPENDECTOMY -: OVARIAN CYSTECTOMY -: HYSTERECTOMY -: ABDOMINAL EXPLORATION -: CHOLICYSTECTOMY -: HERNIA REPAIR, CARPAL TUNNEL - Social History Alcohol use: No CD- Drugs: No Caffeine use: No Place of Residence: Home Physical Examination Temp Pulse Resp BP Pulse Ox 99.2 F 109 H 16 103/56 L 93 12/04/18 13:56 12/04/18 13:56 12/04/18 13:56 12/04/18 13:56 12/04/18 13:56 General: In no apparent distress HEENT: Sclerae nonicteric Respiratory: Normal air movement Musculoskeletal: Other (On the patient's right arm there are 2 areas that measure approximately 5 cm and 6 cm better almost overlapping circles. These were on the upper lateral portion of the right arm. On the dorsum of the lower arm there is a larger area with a a ruptured bullae. The circular areas are reddish purple in size. The appear to be more necrotic towards the center with ability OR as opposed to the car circumferential areas. There is seems to be a transition point. I have been asked to biopsy these areas.) Lymphatics: No axilla or inguinal lymphadenopathy Conclusions/Impression: This patient has this unusual circular rash on her body take biopsies of these for histopathology immunology etc. I spun into the pathologist. I will send for samples in total. 2 in formaldehyde, 1 in saline. The risks of this procedure have been discussed with the patient. She understands and wants to proceed. We will do under local at the bedside.
--- NOTE | 2018-12-04 15:32 | P.OP ---
Date of Service: 12/04/18 Findings and Operative Technique Preoperative diagnosis: Lesions of the right arm x3 Postoperative diagnosis: The same Procedure performed: Punch biopsies of lesions of the right arm Surgeon: Amara Findings in technique: Under local anesthesia, the area of the right arm after having prepped with a Betadine solution was draped in usual manner. A surgical time-out was obtained. There was an infiltrating 1% lidocaine. Using Chaz punch biopsy approximately 6 S attempts were made to obtain samples. For these were successful. This pus was sent for histopathology in both for mild height and normal study as per the pathologist. At the end of procedure the wounds were clean and dry. Some bullae on the upper arms were opened and the drainage controlled to remove them from the ability sterile dressing was then applied and she was stable at the end of the procedure.
[2018-12-04] MEDS: ATORVASTATIN 10 MG TAB PO SCH (20:48)
[2018-12-05] MEDS ORDERED: POTASSIUM 25 MEQ EFFERV TAB PO ONE (03:19)
[2018-12-05] MEDS: PANTOPRAZOLE 40MG TABLET PO SCH (05:27)
[2018-12-05] MEDS: LIDOCAINE VISCOUS 2% SOLN 15 ML UDC PO PRN ×4 (06:28→19:35)
[2018-12-05] MEDS: MORPHINE 4 MG/ML SYR IV PRN ×3 (06:28→18:01)
[2018-12-05] MEDS: NA CHLORIDE 0.9% 1,000 ML IV SCH ×2 (08:00→18:00)
[2018-12-05 08:52] LABS: BUN Blood Urea Nitrogen 19 mg/dL (7-18); Bicarbonate 22 mmol/L (21-32); Glucose Level 112 mg/dL (74-106); Potassium 3.9 mmol/L (3.5-5.1); Sodium Level 141 mmol/L (136-145)
[2018-12-05] MEDS: METOPROLOL XL 100 MG TAB PO SCH (09:00)
[2018-12-05] MEDS: TOPIRAMATE 25 MG TAB PO SCH ×2 (10:02→21:16)
[2018-12-05] MEDS: RANITIDINE 150 MG TABLET PO SCH (10:03)
[2018-12-05] MEDS: predniSONE 10 MG TAB PO SCH (10:05)
[2018-12-05] MEDS: LISINOPRIL 10 MG TAB PO SCH (10:05)
[2018-12-05] MEDS: DOXYCYCLINE 100 MG in NA CHLORIDE 0.9% 100 ML IVPB SCH (10:05)
--- NOTE | 2018-12-05 18:57 | PN ---
Date of Progress Note: 12/05/2018 History: The patient seen and examined. Chart reviewed and case discussed with RN. The patient denies any further GI bleed. The patient is much more concerned with her lesions of her arm, inside her mouth, and her scalp. She states she wants treatment for those lesions. I explained to her that treatment would require a diagnosis first. Biopsies have been taken by Dr. Maloney, currently awaiting pathology report. The patient does report that the cotton candy solution helps improve her discomfort in the lesion of the mouth. Medications: List reviewed. Physical Examination: Vital Signs: Temperature 97.3, heart rate 90, blood pressure 109/58, respirations 18, O2 100% on room air. General: Awake, alert, oriented x3. Appears older than the stated age female. Obese. BMI 35. CV: S1, S2. Regular rate and rhythm. Peripheral pulses present. Respiratory: Moving air well bilaterally. No wheezing or stridor. Gastrointestinal: Abdomen is soft, nontender, nondistended. Positive bowel sounds. Extremities: No clubbing, cyanosis, or edema. Neuro: Cranial nerves 2-12 intact grossly. No focal neurological deficit. Speech is normal. Skin: Right upper extremity bandaged, status post biopsy. The patient does have some oozing around the biopsy site on the arm. Psych: Mood is anxious. Affect is flat. Insight and judgment are good. Laboratory Data: Sodium 141, potassium 3.9, chloride 114, CO2 22, BUN 19, creatinine 0.52, glucose 112, calcium 7.9. WBC pending. RPR titer is nonreactive. Hepatitis panel and HIV panel are pending. Immunology panel is also pending. Blood cultures no growth to date. Stool occult blood is negative. Assessment And Plan: A 57-year-old female with: 1. Anemia secondary to iron deficiency. We will monitor hemoglobin and hematocrit, transfuse blood as needed. 2. Bullous disorder. Surgical biopsy has been completed by Dr. Maloney. We appreciate his input. We will follow up with pathology report. 3. Coagulopathy. 4. Obesity. 5. Possible T-cell leukemia. Flow cytometry pending. Smear showed blast cells 6. Thrombocytopenia. unclear etiology. Maybe secondary to hematological malignancy 7. Raynaud syndrome. 8. Deep vein thrombosis prophylaxis addressed. 9. Nausea, vomiting non intractable: resolved. The patient's skin condition has been present for several months. No infectious etiology suspected. Antibiotics have been discontinued. Peripheral smear has been completed. Dr. Montalvo is also on the case. Flow cytometry has been sent out. The patient may have immune disorder. The patient received Solu -Medrol x1. We will follow up with immune markers and HIV and hepatitis panel. Likely discharge in next 24-48 hours depending on clinical response. /AZUCENA Voice ID: [id number] Report ID: [id number] [facility]LANDSkyler
[2018-12-05] MEDS ORDERED: LACTULOSE 20 GM/30 ML UCUP PO ONE (19:18)
[2018-12-05] MEDS: ATORVASTATIN 10 MG TAB PO SCH (21:16)
[2018-12-06] MEDS: MORPHINE 4 MG/ML SYR IV PRN ×3 (00:39→09:26)
[2018-12-06] MEDS: LIDOCAINE VISCOUS 2% SOLN 15 ML UDC PO PRN ×2 (00:39→04:18)
[2018-12-06] MEDS: PANTOPRAZOLE 40MG TABLET PO SCH (06:00)
[2018-12-06] MEDS ORDERED: LIDOCAINE VISCOUS 2% SOLN 15 ML UDC PO PRN (06:34)
[2018-12-06] MEDS: NA CHLORIDE 0.9% 1,000 ML IV SCH ×2 (06:54→12:46)
[2018-12-06 07:15] LABS: Hematocrit 24.3 % (36.0-45.0); RBC Red Blood Cell Count 2.64 M/uL (3.86-4.86)
[2018-12-06 07:16] LABS: Absolute Lymphocytes (CBC) 2.8 K/uL (0.7-4.9); Absolute Monocytes 0.4 K/uL (0.1-1.3); Absolute Neutrophil 1.7 K/uL (1.8-8.0); Basophils % 0.8 % (0-1.3); Eosinophils % 1.2 % (0-4.4); Lymphocytes % 55.5 % (15.3-44.8); MPV 8.7 fL (7.6-11.3); Monocytes % 8.2 % (3.3-12.3)
[2018-12-06 07:33] LABS: ALT/SGPT 38 U/L (12-78); AST/SGOT 42 U/L (15-37); Albumin 1.8 g/dL (3.4-5.0); Alkaline Phosphatase 85 U/L (45-117); BUN Blood Urea Nitrogen 18 mg/dL (7-18); Bicarbonate 24 mmol/L (21-32); Bilirubin Total 0.2 mg/dL (0.2-1.0); Glucose Level 84 mg/dL (74-106); Potassium 3.2 mmol/L (3.5-5.1); Protein, Total 5.8 g/dL (6.4-8.2); Sodium Level 144 mmol/L (136-145)
[2018-12-06] MEDS: LISINOPRIL 10 MG TAB PO SCH (07:53)
[2018-12-06] MEDS: RANITIDINE 150 MG TABLET PO SCH (07:53)
[2018-12-06] MEDS: TOPIRAMATE 25 MG TAB PO SCH (07:54)
[2018-12-06] MEDS: predniSONE 10 MG TAB PO SCH (07:54)
[2018-12-06] MEDS: METOPROLOL XL 100 MG TAB PO SCH (07:55)
[2018-12-06] MEDS ORDERED: POTASSIUM CL SA 10 MEQ TAB PO ONE (08:05)
[2018-12-06 12:06] LABS: Hematocrit 26.3 % (36.0-45.0)
[2018-12-06 18:48] LABS: HIV 1/2 Antibody Diff Not indicated.; HIV AG/AB 4TH GEN Non-reactive (Non-reactive)
--- NOTE | 2018-12-07 03:12 | DS ---
Date of Discharge: 12/06/2018 Consultants: 1.Dr. Maloney, General Surgery. 2.Dr. Montalvo, Oncology. Admitting Diagnoses: 1.Bullous skin lesions. 2.Anemia. 3.Thrombocytopenia. 4.Raynaud phenomenon. 5.Coagulopathy. Discharge Diagnoses: 1.Bullous disorder with skin lesion status post biopsy. Pathology report pending. 2.Iron deficiency anemia. Hemoglobin stable. The patient will need outpatient Gastroenterology fol lowup and scope. 3.Coagulopathy. 4.Lymphangitis. 5.T-cell leukemia. 6.Thrombocytopenia. 7.Raynaud phenomena. 8.Chronic pain syndrome, on narcotics. 9.Chronic obstructive pulmonary disease. 10.Major depressive disorder. 11.Bipolar disorder. 12.History of migraine headaches. 13.Essential hypertension. 14.Obesity, BMI 35. Hospital Course: The patient is a 57-year-old female who has a past medical history of COPD, hyperte nsion, diabetes, depression, migraines, comes in with history of bullous lesions with unclear etiolog y. The patient was admitted for further evaluation. She was found to be thrombocytopenic and anemic . The patient was started on steroids. Dr. Maloney was consulted, who performed a biopsy and flow c ytometry was also sent off. Did not seem to be infectious in etiology. Cultures were negative. Had a normal white count. Antibiotics were then discontinued. I did speak with Dr. Montalvo as a phone con sultation to have the patient follow up with her as an outpatient. She will follow up with the patie nt depending on the flow cytometry results. Her peripheral blood smear did show some blast cells and there is a possibility of T-cell leukemia which is usually chronic and can result in lesions of the skin. However, until flow cytometry results are back we will proceed with IV steroids to rule out an y sort of autoimmune type disorders. The patient's immunology panel has been sent off and is pending . RPR was negative. Hepatitis panel and HIV panel are also pending at this time. The patient did h ave some electrolyte abnormalities which were corrected. She was found to be anemic and has iron def iciency anemia. Her H and H remained stable. She did not have any melenic stools. Her fecal occult blood was negative. The patient will need GI workup as an outpatient for a colonoscopy to rule out malignancy as a cause of this anemia. The patient was then discharged home in a stable condition. Activity: As tolerated. No driving or operating heavy machinery while on narcotics. Diet: Heart healthy. Followup: Follow up with primary care physician, Dr. Vega in 2-3 days. Follow up with tool crib supervisor Dr. Montalvo in 1 week for flow cytometry results. Return to ER for worsening condition. The patient t o follow up with PCP regarding biopsy and pathology report. Medications: As per medication reconciliation list. The patient will be on a steroid taper. The caden bunn is on chronic steroids. Physical Examination: General: Awake, alert, oriented x3. Obese female. CV: S1, S2. No murmurs. Respiratory: Moving air well bilaterally. Abdomen: Soft, nontender, nondistended. Positive bowel sounds. Extremities: No clubbing, cyanosis, edema. Neurologic: Nonfocal. Skin: The patient has bullous lesions on the right upper extremity. Total time spent discharging the patient was 37 minutes. /AZUCENA Voice ID: [id number] Report ID: [id number]
[2018-12-08 06:01] LABS: Hepatitis C Virus RNA (PCR)log <1.18 log IU/mL
[2018-12-08 09:21] LABS: P-ANCA Anti-Myeloperoxidase Ab <1.0 AI (<1.0)
[2018-12-09 20:33] LABS: HBsAG Nonreactive (Nonreactive); Hepatitis A IgM Antibody Nonreactive
== END 2018-12-06 18:24 | disposition home or self-care (01) | DRG 835 ==
LOC: ER 16:16 → ERHOLD 19:54 → 4TH 20:52
PROVIDERS: ADMIT Hospitalist; ATTEND Family Medicine
PROC: 0HBDXZX Excision of Right Lower Arm Skin, External Approach, Diagnostic (ICD-10-PCS; principal; 2018-12-04)
PROC: 0HBBXZX Excision of Right Upper Arm Skin, External Approach, Diagnostic (ICD-10-PCS; 2018-12-04)
DX: C91.00 Acute lymphoblastic leukemia not having achieved remission (principal); D68.9 Coagulation defect, unspecified; D50.9 Iron deficiency anemia, unspecified; I89.1 Lymphangitis; D69.6 Thrombocytopenia, unspecified; I73.00 Raynaud's syndrome without gangrene; G89.4 Chronic pain syndrome; J44.9 Chronic obstructive pulmonary disease, unspecified; F32.9 Major depressive disorder, single episode, unspecified; I10 Essential (primary) hypertension; E66.9 Obesity, unspecified; Z68.35 Body mass index [BMI] 35.0-35.9, adult; G43.809 Other migraine, not intractable, without status migrainosus; E11.9 Type 2 diabetes mellitus without complications; Z88.0 Allergy status to penicillin; Z79.84 Long term (current) use of oral hypoglycemic drugs; Z87.891 Personal history of nicotine dependence; K13.70 Unspecified lesions of oral mucosa; L98.9 Disorder of the skin and subcutaneous tissue, unspecified
CPT/HCPCS: 36415; 71045; 80048; 80053; 80074; 80076; 81003; 82140; 82272; 82607; 82728; 83540; 83690; 83735; 83880; 84100; 84132; 84145; 84436; 84443; 84466; 84484; 85014; 85018; 85025; 85044; 85049; 85610; 85652; 86021; 86038; 86140; 86592; 86850; 86900; 86901; 87040; 87389; 87522; 88300; 88305; 93005; 96361; 96365; 96375; 99285; C9113; J0692; J1720; J2270; J2930; J3010; J3370; J7030; J7512

== ENCOUNTER 2018-12-15 07:35 | Day surgery (SDC) | payer OTHER ==
--- OUTSIDE RECORDS SUMMARY | 2018-12-15 07:40 | XMS REPORT | Clinical Summary ---
:1960 Author Organization [facility] Address [address] [place] [address] Care Team Providers Name Role Phone Rafael [...] Specialty Care Team Description 10/12/2018 Office Visit Neurosurgery William, S/P lumbar spinal Brandt Dhillon MD fusion (Primary Dx) 10/12/2018 Hospital Encounter Radiology Allen Thomas MD thoracolumbar spine, unspecified scoliosis type 10/12/2018 Orders Only Neurosurgery Portillo, Lumbar radiculopathy, acute ( Primary Dx); Quyen, [place] Thoracic spine pain 10/12/2018 Orders Only Neurosurgery Leufroy-Karo Scoliosis of za, Yasmeen, thoracolumbar spine, MA unspecified scoliosis type (Primary Dx) 08/25/2018 Orders Only Neurosurgery Leufroy-Karo Scoliosis of za, Yasmeen, thoracolumbar spine, MA unspecified scoliosis type (Primary Dx) 05/18/2018 Office Visit Neurosurgery William, Scoliosis due to [...] 03/31/2018 Anesthesia Event General Surgery 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, 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 03/31/2018 Surgery General Surgery William, L5-S1 ANTERIOR [...] pathological fracture, initial encounter (Primary Dx) after 12/14/2017 Family History Medical History Relation Name Comments [...] Description 04/07/2019 Appointment Radiology Brandt Thomas MD [address] [place], [place] [phone] 04/07/2019 Appointment Radiology Brandt Thomas MD [address] [place], [place] [phone] 04/07/2019 Office Visit Neurosurgery Brandt Thomas MD [address] [place], [place] [phone] Health Maintenance Due Date Last Done Comments CERVICAL CANCER SCREENING 1981 BREAST CANCER SCREENING 2010 COLON CANCER SCREENING 2010 SHINGLES VACCINES (#1) 2010 INFLUENZA VACCINE Completed 10/16/2018 Implants Implanted Type Area Raw Silk Grader Device Shelf Model / Identifier Expiration Serial / Lot Date Bone Matriz Osteocel Pro Large - [id number] - [id number] Human Tissue N/A: NUVASIVE 02/18/2023 [id number] / Implanted: Qty: 1 on 03/31/2018 by Brandt Thomas MD Implants N/A [id number] / [id number] Paste Dbm Easy-Dispensing Wdmth Syr 10ml [address] - [id number] - [id number] Human Tissue Posteri MEDTRONIC 10/28/2019 [id number] / Implanted: Qty: 1 on 04/03/2018 by Brandt Thomas MD Implants or: N/A SPINAL GRAFT [id number] / TECHNOLOGIES [id number] Paste Dbm Easy-Dispensing Wdmth Syr 10[address] - [id number] - [id number] Human Tissue Posteri MEDTRONIC 10/30/2019 [id number] / Implanted: Qty: 1 on 04/03/2018 by Brandt Thomas MD Implants or: N/A SPINAL GRAFT [id number] / TECHNOLOGIES [id number] Bone Cancellous 30ml Chips - [id number] - [id number] Human Tissue Posteri RTI SURGICAL 01/30/2022 [id number] / Implanted: Qty: 1 on 04/03/2018 by Brandt Thomas MD Implants or: N/A INC. [id number] / [id number] Bone Cancellous 30ml Chips - [id number] - [id number] Human Tissue Posteri RTI SURGICAL 01/30/2022 [id number] / Implanted: Qty: 1 on 04/03/2018 by Brandt Thomas MD Implants or: N/A INC. [id number] / [id number] Bone Matriz Osteocel Pro Large - [id number] - [id number] Human Tissue N/A: NUVASIVE 11/13/2022 [id number] / Implanted: Qty: 1 on 04/03/2018 by Brandt Thomas MD Implants N/A [id number] / [id number] Kit Bone Grft Lmbr Tprd 8ml Xxl Infuse - [id number] Human Tissue Posteri MEDTRONIC 02/20/2019 [id number] / Implanted: Qty: 1 on 04/03/2018 by Brandt Thomas MD Implants or: N/A SPINAL AND / BIOLOGICS [id number] Kit Bone Grft Lmbr Tprd 8ml Xxl Infuse - [id number] Human Tissue Posteri MEDTRONIC 02/20/2019 [id number] / Implanted: Qty: 1 on 04/03/2018 by Brandt Thomas MD Implants or: N/A SPINAL AND / BIOLOGICS [id number] Maxcess 4 Surgical Access Kit - [id number] IPM IMPLANT N/A: NUVASIVE SPINE [id number] / Implanted: Qty: 1 on 03/31/2018 by Brandt Thomas MD DEVICES N/A / Base Ti Imp, [id number] 10 - [id number] IPM IMPLANT N/A: NUVASIVE SPINE [id number] / Implanted: Qty: 1 on 03/31/2018 by Brandt Thomas MD DEVICES N/A / Base Ti [place] 6.0 X 17.5mm Variable - [id number] IPM IMPLANT N/A: NUVASIVE SPINE [id number] / Implanted: Qty: 1 on 03/31/2018 by Brandt Thomas MD DEVICES N/A / Modulus Xlw, [id number] 15deg - [id number] IPM IMPLANT N/A: NUVASIVE SPINE 01/05/2023 [id number] / Implanted: Qty: 1 on 04/03/2018 by Brandt Thomas MD DEVICES N/A / [id number] Modulus Xlw, [id number] 15deg - [id number] IPM IMPLANT N/A: NUVASIVE SPINE 01/05/2023 [id number] / Implanted: Qty: 1 on 04/03/2018 by Brandt Thmoas MD DEVICES N/A / [id number] Maxcess 4 Surgical Access Kit - [id number] IPM IMPLANT N/A: NUVASIVE SPINE [id number] / Implanted: 04/03/2018 (Quantity not on file) DEVICES N/A / Unid Patient Specific William 5.5 - [id number] IPM IMPLANT N/A: MEDICREA INT'L 07/04/2018 [id number] / Implanted: 04/03/2018 (Quantity not on file) DEVICES N/A / [id number] Screw [id number] Bs Cnmas 7.5x80 T/C - [id number] IPM IMPLANT Posteri MEDTRONIC [id number] / Implanted: Qty: 1 on 04/03/2018 by Brandt Thomas MD DEVICES or: N/A SOFAMOR DANEK / Screw [id number] 5.5 Mas 7.5x100 Cc - [id number] IPM IMPLANT Posteri MEDTRONIC [id number] / Implanted: Qty: 1 on 04/03/2018 by Brandt Thomas MD DEVICES or: N/A SOFAMOR DANEK / Screw [id number] 5.5 Mas 5.5x35 Cc - [id number] IPM IMPLANT Posteri MEDTRONIC [id number] / Implanted: Qty: 4 on 04/03/2018 by Brandt Thomas MD DEVICES or: N/A SOFAMOR DANEK / Screw [id number] 5.5 Mas 5.5x40 Cc - [id number] IPM IMPLANT Posteri MEDTRONIC [id number] / Implanted: Qty: 3 on 04/03/2018 by Brandt Thomas MD DEVICES or: N/A SOFAMOR DANEK / Screw [id number] 5.5 Mas 5.5x45 Cc - [id number] IPM IMPLANT Posteri MEDTRONIC [id number] / Implanted: Qty: 12 on 04/03/2018 by Brandt Thomas MD DEVICES or: N/A SOFAMOR DANEK / Screw [id number] 5.5 Mas 5.5x50 Cc - [id number] IPM IMPLANT Posteri MEDTRONIC [id number] / Implanted: Qty: 2 on 04/03/2018 by Brandt Thomas MD DEVICES or: N/A SOFAMOR DANEK / Screw [id number] 5.5 Mas 6.5x50 Cc - [id number] IPM IMPLANT Posteri MEDTRONIC [id number] / Implanted: Qty: 1 on 04/03/2018 by Brandt Thomas MD DEVICES or: N/A SOFAMOR DANEK / Screw [id number] 5.5 Mas 6.5x45 Cc - [id number] IPM IMPLANT Posteri MEDTRONIC [id number] / Implanted: Qty: 3 on 04/03/2018 by Brandt Thomas MD DEVICES or: N/A SOFAMOR DANEK / Screw [id number] 5.5 Mas 7.5x40 Cc - [id number] IPM IMPLANT Posteri MEDTRONIC [id number] / Implanted: Qty: 1 on 04/03/2018 by Brandt Thomas MD DEVICES or: N/A SOFAMOR DANEK / Screw [id number] 5.5 Mas 7.5x35 Cc - [id number] [id number] IMPLANT Posteri MEDTRONIC [id number] / Implanted: Qty: 1 on 04/03/2018 by Brandt Thomas MD DEVICES or: N/A SOFAMOR DANEK / Screw [id number] 5.5 Mas 8.5x50 Cc - [id number] IPM IMPLANT Posteri MEDTRONIC [id number] / Implanted: Qty: 1 on 04/03/2018 by Brandt Thomas MD DEVICES or: N/A SOFAMOR DANEK / Screw [id number] 5.5 Mas 8.5x40 Cc - [id number] IPM IMPLANT Posteri MEDTRONIC [id number] / Implanted: Qty: 1 on 04/03/2018 by Brandt Thomas MD DEVICES or: N/A SOFAMOR DANEK / Screw [id number] 5.5 Mas 6.5x50 Cc - [id number] IPM IMPLANT Posteri MEDTRONIC [id number] / Implanted: Qty: 1 on 04/03/2018 by Brandt Thomas MD DEVICES or: N/A SOFAMOR DANEK / Connector [id number] 5/6-6.0 Clsd Lat 20 - [id number] IPM IMPLANT Posteri MEDTRONIC [id number] / Implanted: Qty: 1 on 04/03/2018 by Brandt Thomas MD DEVICES or: N/A SOFAMOR DANEK / Connector [id number] 5/6-6.0 Clsd Lat 25 - [id number] IPM IMPLANT Posteri MEDTRONIC [id number] / Implanted: Qty: 1 on 04/03/2018 by Brandt Thomas MD DEVICES or: N/A SOFAMOR DANEK / Material Bone Hmsts Wtrsolbl 2.5g [place] - [id number] Orthopedic N/A: [id number] / Implanted: Qty: 1 on 03/31/2018 by Brandt Thomas MD Trauma N/A / Implants [id number] Material Bone Hmsts Wtrsolbl 2.5g [place] - [id number] Orthopedic N/A: [id number] / Implanted: Qty: 1 on 03/31/2018 by Brandt Thomas MD Trauma N/A / Implants [id number] Material Bone Hmsts Wtrsolbl 2.5g [place] - [id number] Orthopedic N/A: [id number] / Implanted: Qty: 1 on 04/03/2018 by Brandt Thomas MD Trauma N/A / Implants [id number] Material Bone Hmsts Wtrsolbl 2.5g [place] - [id number] Orthopedic N/A: [id number] / Implanted: Qty: 1 on 04/03/2018 by Brandt Thomas MD Trauma N/A / Implants [id number] Screw Bone Canc Lag 4x30mm Ns - [id number] Orthopedic Posteri MEDTRONIC [id number] / Implanted: Qty: 32 on 04/03/2018 by Brandt Thomas MD Trauma or: N/A SOFAMOR DANEK / Implants Kit Dil M5 Xlif - [id number] Spinal N/A: NUVASIVE [id number] / Implanted: Qty: 1 on 03/31/2018 by Brandt Thomas MD Implants N/A / Kit Dil M5 Xlif - [id number] Spinal N/A: NUVASIVE [id number] / Implanted: 04/03/2018 (Quantity not on file) Implants N/A / Screw Set Std Ti 1/4in 32mm - [id number] Spinal Posteri MEDTRONIC [id number] / Implanted: Qty: 2 on 04/03/2018 by Brandt Thomas MD Implants or: N/A SPINAL AND / BIOLOGICS Procedures Procedure Name Priority Date/Time Associated Diagnosis Comments XR SPINE SCOLIOSIS 2-3 Routine 10/12/2018 2:09 Scoliosis of Results for this VIEWS PM MOLECULAR TECHNOLOGIST thoracolumbar spine, procedure are in unspecified scoliosis [...] DIFF procedure are in the results section. AK AN ELECTIVE ENDOTRACHEAL Routine 04/03/2018 8:10 AM CDT AIRWAY Procedure Note - Lor Mosher, YOSEF - 04/03/2018 8:10 AM CDT Airway Date/Time: [...] APPROACH Case Notes PT TBA ON 03/31, RAMANA COOK PRO AXIS TABLE, STEALTH S7, OARM, AQUAMANTYS, BONE SCAPEL, MEDTRONIC INSTRUMENATION, EMG, MEPS, SSEPS Special Needs PT TBA ON 03/31, DR JACOBS CO-SURGEON, [place] PRO AXIS TABLE, STEALTH S7, OARM, AQUAMANTYS, BONE SCAPEL, MEDTRONIC INSTRUMENATION, EMG, MEPS, SSEPS FUSION, SPINE, LUMBAR, XLIF 04/03/2018 7:30 AM CDT Other secondary scoliosis Case Notes PT TBA ON 03/31, DR JACOBS ASSISTING, [facility] PRO AXIS TABLE, STEALTH S7, OARM, AQUAMANTYS, BONE SCAPEL, MEDTRONIC INSTRUMENATION, EMG, MEPS, SSEPS Special Needs PT TBA ON 03/31, DR JACOBS CO-SURGEON, [place] PRO AXIS TABLE, STEALTH S7, OARM, AQUAMANTYS, [...] 03/31/2018 7:49 AM Staff: Anesthesiologist: STEWART MCDOWELL Resident/GAS MAIN FITTER HELPER/AA: CRYSTAL SMART Performed by: Anesthesiologist Pre-procedure: patient [...] complications Notes: A-line placed by Dr. Mcdowell AK AN ELECTIVE ENDOTRACHEAL AIRWAY Routine 03/31/2018 8:53 AM CDT Procedure Note - Crystal Smart CRNA - 03/31/2018 8:53 AM CDT Airway Date/Time: 03/31/2018 7:47 AM Performed by: CRYSTAL SMART Authorized by: STEWART MCDOWELL Location: OR Urgency: Elective Difficult Airway: No Anesthesiologist: STEWART MCDOWELL Resident/GAS MAIN FITTER HELPER/AA: CRYSTAL SMART Performed by: resident/GAS MAIN FITTER HELPER/AA Preoxygenated with 100% O2: Yes C-spine Precautions [...] the results fracture, initial section. encounter after 12/14/2017 Results XR Spine Scoliosos 2-3 Views (10/12/2018 2:09 PM MOLECULAR TECHNOLOGIST)Only the most recent of3 resultswithin the time [...] level. There are bilateral hip arthroplasties. [id number] Procedure Note Interface, Radiology Results Incoming - 10/12/2018 2:47 PM MOLECULAR TECHNOLOGIST EXAMINATION: XR SPINE SCOLIOSIS 2-3 VIEWS CLINICAL [...] T11 level. There are bilateral hip arthroplasties. [facility]-[id number] Performing Organization Address [facility] Phone Number [facility] [address] [place] [address] Transfuse RBC (05/27/2018 5:55 PM CDT)Only the most recent of4 resultswithin the time period is included.POC glucose (04/24/2018 7:13 AM CDT)Only the most recent of87 resultswithin the time period is included. POC glucose 106 (H) 65 - 99 mg/dL [facility] DEPARTMENT OF PATHOLOGY Comment: AND GENOMIC MEDICINE [facility], [facility] Notified RN Meter ID: [id number] Medical Coder: Vasile Mian D Performing Organization Address City/[facility]/Zipcode Phone Number [facility] DEPARTMENT OF PATHOLOGY AND [address] [place] [address] [employer] MEDICINE Estimated GFR (04/20/2018 4:00 AM CDT)Only the most recent of22 resultswithin the time period is included. GFR Non Af Amer 74 mL/min/1.73 m2 [facility] DEPARTMENT OF PATHOLOGY AND GENOMIC MEDICINE GFR Af Amer 90 mL/min/1.73 m2 [facility] DEPARTMENT OF Comment: PATHOLOGY AND GENOMIC Chronic kidney disease: <60 mL/min/1.73m2 MEDICINE Kidney [...] Americans. Specimen Plasma specimen Performing Organization Address [facility] Cent[facility] Phone Number [facility] DEPARTMENT OF PATHOLOGY AND [address] [place] [address] [employer] Basic metabolic panel (04/20/2018 4:00 AM CDT)Only the most recent of18 resultswithin the time period is included. Sodium 139 135 - 148 mEq/L [facility] DEPARTMENT OF PATHOLOGY AND GENOMIC MEDICINE Potassium 3.9 3.5 - 5.0 mEq/L [facility] DEPARTMENT OF PATHOLOGY AND GENOMIC MEDICINE Chloride 100 98 - 112 mEq/L [facility] DEPARTMENT OF PATHOLOGY AND GENOMIC MEDICINE CO2 27 24 - 31 mEq/L [facility] DEPARTMENT OF PATHOLOGY AND GENOMIC MEDICINE Anion gap 12@ANIO 7 - 15 mEq/L [facility] DEPARTMENT OF PATHOLOGY AND GENOMIC MEDICINE BUN 9 6 - 20 mg/dL [facility] DEPARTMENT OF PATHOLOGY AND GENOMIC MEDICINE Creatinine 0.8 0.5 - 0.9 mg/dL [facility] DEPARTMENT OF PATHOLOGY AND GENOMIC MEDICINE Glucose 102 (H) 65 - 99 mg/dL [facility] DEPARTMENT OF PATHOLOGY AND GENOMIC MEDICINE Calcium 9.1 8.3 - 10.2 mg/dL [facility] DEPARTMENT OF PATHOLOGY AND GENOMIC MEDICINE Specimen Plasma specimen Performing Organization Address City/[facility]/Zipcode Phone Number [facility] DEPARTMENT OF PATHOLOGY AND [address] [place], [place] [phone] [employer] MEDICINE Smear review (04/18/2018 5:00 AM CDT)Only the most recent of5 resultswithin the time period is included. Platelet slide review Katie adequate [facility] DEPARTMENT OF PATHOLOGY AND GENOMIC MEDICINE Anisocytosis Moderate [facility] DEPARTMENT OF PATHOLOGY AND GENOMIC MEDICINE Polychromasia Moderate [facility] DEPARTMENT OF PATHOLOGY AND GENOMIC MEDICINE Ovalocytes Moderate [facility] DEPARTMENT OF PATHOLOGY AND GENOMIC MEDICINE Enlarged platelets Moderate (A) [facility] DEPARTMENT OF PATHOLOGY AND GENOMIC MEDICINE Performing Organization Address City/State/Zipcode Phone Number [facility] DEPARTMENT OF PATHOLOGY AND [address] [place] [address] [facility] CBC with platelet and differential (04/18/2018 5:00 AM CDT)Only the most recent of15 resultswithin the time period is included. WBC 4.06 (L) 4.50 - 11.00 k/uL [facility] DEPARTMENT OF PATHOLOGY AND GENOMIC MEDICINE RBC 2.73 (L) 4.20 - 5.50 m/uL [facility] DEPARTMENT OF PATHOLOGY AND GENOMIC MEDICINE HGB 8.4 (L) 12.0 - 16.0 g/dL [facility] DEPARTMENT OF PATHOLOGY AND GENOMIC MEDICINE HCT 27.1 (L) 37.0 - 47.0 % [facility] DEPARTMENT OF PATHOLOGY AND GENOMIC MEDICINE MCV 99.3 82.0 - 100.0 fL [facility] DEPARTMENT OF PATHOLOGY AND GENOMIC MEDICINE MCH 30.8 27.0 - 34.0 pg [facility] DEPARTMENT OF PATHOLOGY AND GENOMIC MEDICINE MCHC 31.0 31.0 - 37.0 g/dL [facility] DEPARTMENT OF PATHOLOGY AND GENOMIC MEDICINE RDW - SD 65.3 (H) 37.0 - 55.0 fL [facility] DEPARTMENT OF PATHOLOGY AND GENOMIC MEDICINE MPV 11.2 8.8 - 13.2 fL [facility] DEPARTMENT OF PATHOLOGY AND GENOMIC MEDICINE Platelet count 151 150 - 400 k/uL [facility] DEPARTMENT OF PATHOLOGY AND GENOMIC MEDICINE Nucleated RBC 0.00 /100 WBC [facility] DEPARTMENT OF PATHOLOGY AND GENOMIC MEDICINE Neutrophils 44.2 39.0 - 69.0 % [facility] DEPARTMENT OF PATHOLOGY AND GENOMIC MEDICINE Lymphocytes 39.9 25.0 - 45.0 % [facility] DEPARTMENT OF PATHOLOGY AND GENOMIC MEDICINE Monocytes 13.8 (H) 0.0 - 10.0 % [facility] DEPARTMENT OF PATHOLOGY AND GENOMIC MEDICINE Eosinophils 1.2 0.0 - 5.0 % [facility] DEPARTMENT OF PATHOLOGY AND GENOMIC MEDICINE Basophils 0.2 0.0 - 1.0 % [facility] DEPARTMENT OF PATHOLOGY AND GENOMIC MEDICINE Immature granulocytes 0.7Comment: 0.0 - 1.0 % [facility] DEPARTMENT OF "Immature PATHOLOGY AND GENOMIC granulocytes" MEDICINE (promyelocytes, myelocytes, metamyelocytes) Specimen Blood Performing Organization Address [facility] Centercoar Phone Number [facility] DEPARTMENT OF PATHOLOGY AND [address] [place] [phone] [facility] Thyroid stimulating hormone (04/18/2018 5:00 AM CDT) TSH 2.00 0.27 - 4.20 uIU/mL [facility] DEPARTMENT OF PATHOLOGY AND GENOMIC MEDICINE Specimen Plasma specimen Performing Organization Address [facility] Center[facility] Phone Number [facility] DEPARTMENT OF PATHOLOGY AND [address] [place] [phone] [facility] Urinalysis screen and microscopy, with reflex to culture (04/17/2018 9:16 PM CDT)Only the most recent of2 resultswithin the time period is included. Specimen site Clean catch [facility] DEPARTMENT OF PATHOLOGY AND GENOMIC MEDICINE Color, UA Straw [facility] DEPARTMENT OF PATHOLOGY AND GENOMIC MEDICINE Appearance, UA Clear [facility] DEPARTMENT OF PATHOLOGY AND GENOMIC MEDICINE Specific gravity, UA 1.006 1.001 - 1.035 [facility] DEPARTMENT OF PATHOLOGY AND GENOMIC MEDICINE pH, UA 6.0 5.0 - 8.5 [facility] DEPARTMENT OF PATHOLOGY AND GENOMIC MEDICINE Protein, UA Negative Negative [facility] DEPARTMENT OF PATHOLOGY AND GENOMIC MEDICINE Glucose, UA Negative Negative [facility] DEPARTMENT OF PATHOLOGY AND GENOMIC MEDICINE Ketones, UA Negative Negative [facility] DEPARTMENT OF PATHOLOGY AND GENOMIC MEDICINE Bilirubin, UA Negative Negative [facility] DEPARTMENT OF PATHOLOGY AND GENOMIC MEDICINE Blood, UA Negative Negative [facility] DEPARTMENT OF PATHOLOGY AND GENOMIC MEDICINE Nitrite, UA Negative Negative [facility] DEPARTMENT OF PATHOLOGY AND GENOMIC MEDICINE Urobilinogen, UA <2.0 <2.0 [facility] DEPARTMENT OF PATHOLOGY AND GENOMIC MEDICINE Leukocyte esterase, UA Negative Negative [facility] DEPARTMENT OF PATHOLOGY AND GENOMIC MEDICINE Epithelial cells, UA 5 /HPF [facility] DEPARTMENT OF PATHOLOGY AND GENOMIC MEDICINE WBC, UA 1 0 - 4 /HPF [facility] DEPARTMENT OF PATHOLOGY AND GENOMIC MEDICINE RBC, UA None seen 0 - 5 /HPF [facility] DEPARTMENT OF PATHOLOGY AND GENOMIC MEDICINE Bacteria, UA Few None seen [facility] DEPARTMENT OF PATHOLOGY AND GENOMIC MEDICINE Yeast, UA None seen [facility] DEPARTMENT OF PATHOLOGY AND GENOMIC MEDICINE Yeast with pseudohyphae, UA None seen [facility] DEPARTMENT OF PATHOLOGY AND GENOMIC MEDICINE Specimen Urine Performing Organization Address [facility]/Zipcode Phone Number [facility] DEPARTMENT OF PATHOLOGY AND [address] [place] [address] GENOMIC MEDICINE Urine culture (04/17/2018 9:16 PM CDT)Only the most recent of2 resultswithin the time period is included. Urine culture SEE COMMENTComment: Bacteriuria [facility] DEPARTMENT OF PATHOLOGY screen negative. AND GENOMIC MEDICINE Performing Organization Address [facility] Centercode Phone Number [facility] DEPARTMENT OF PATHOLOGY AND [address] [place] [phone] GENOMIC MEDICINE [place] Lung Ventilation Perfusion (04/17/2018 8:29 PM CDT) Narrative Performed At CLINICAL HISTORY: PE suspectedlow pretest prob, Taqchycardia unknow [facility] etiology- S P Spine sx TECHNIQUE: The patient breathed 15-20 mCi of xenon-133 gas through a closed ventilation system while dynamic imaging of the lungs was performed in the posterior and anterior projections. The patient was then injected with 5 mCi of [id number] intravenously, followed by imaging of the lungs [...] was then injected with 5 mCi of rcnhmhdufo-02l-FUM intravenously, followed by imaging of the lungs in anterior, posterior, and oblique projections. FINDINGS: Small perfusion defect left upper lobe likely related to aortic arch. Mildly reduced perfusion and ventilation right upper lobe posteriorly. IMPRESSION: Low Probability for pulmonary embolism. [facility] Performing Organization Address [facility]/Zipcode Phone Number [facility] [address] [place] [address] XR Chest 1 Vw Portable (04/17/2018 5:11 PM CDT)Only the most recent of4 resultswithin the time period is included. Narrative Performed At EXAMINATION: Portable chest x-ray [facility] CLINICAL HISTORY:sob COMPARISON: Most recent available chest [...] a trace of pleural fluid. 4.No pneumothorax. [id number] Procedure Note Hm Interface, Radiology Results Incoming [...] trace of pleural fluid. 4. No pneumothorax. [id number] Performing Organization Address City/State/Zipcode Phone Number [facility] [address] [place] [address] Comprehensive metabolic panel (04/17/2018 12:55 PM CDT)Only the most recent of4 resultswithin the time period is included. Sodium 140 135 - 148 mEq/L [facility] DEPARTMENT OF PATHOLOGY AND GENOMIC MEDICINE Potassium 3.3 (L) 3.5 - 5.0 mEq/L [facility] DEPARTMENT OF PATHOLOGY AND GENOMIC MEDICINE Chloride 101 98 - 112 mEq/L [facility] DEPARTMENT OF PATHOLOGY AND GENOMIC MEDICINE CO2 25 24 - 31 mEq/L [facility] DEPARTMENT OF PATHOLOGY AND GENOMIC MEDICINE Anion gap 14@ANIO 7 - 15 mEq/L [facility] DEPARTMENT OF PATHOLOGY AND GENOMIC MEDICINE BUN 7 6 - 20 mg/dL [facility] DEPARTMENT OF PATHOLOGY AND GENOMIC MEDICINE Creatinine 0.7 0.5 - 0.9 mg/dL [facility] DEPARTMENT OF PATHOLOGY AND GENOMIC MEDICINE Glucose 125 (H) 65 - 99 mg/dL [facility] DEPARTMENT OF PATHOLOGY AND GENOMIC MEDICINE Calcium 8.5 8.3 - 10.2 mg/dL [facility] DEPARTMENT OF PATHOLOGY AND GENOMIC MEDICINE Protein 6.9 6.3 - 8.3 g/dL [facility] DEPARTMENT OF Comment: PATHOLOGY AND GENOMIC 4.6-7.0 g/dL MEDICINE 1 week 4.4-7.6 g/dL 7 months-1year5.1-7.3 g/dL 1-2 years5.6-7.5 g/dL >3 years6.0-8.0 g/dL 18-150 6.3-8.3 g/dL Albumin 2.4 (L) 3.5 - 5.0 g/dL [facility] DEPARTMENT OF PATHOLOGY AND GENOMIC MEDICINE A/G ratio 0.5 (L) 0.7 - 3.8 [facility] DEPARTMENT OF PATHOLOGY AND GENOMIC MEDICINE Alkaline phosphatase 95 35 - 104 U/L [facility] DEPARTMENT OF PATHOLOGY AND GENOMIC MEDICINE AST 23 10 - 35 U/L [facility] DEPARTMENT OF PATHOLOGY AND GENOMIC MEDICINE ALT 32 5 - 50 U/L [facility] DEPARTMENT OF PATHOLOGY AND GENOMIC MEDICINE Total bilirubin <0.2 0.0 - 1.2 mg/dL [facility] DEPARTMENT OF PATHOLOGY AND GENOMIC [facility] Specimen Plasma specimen Performing Organization Address City/State/[facility] Centercode Phone Number [facility] DEPARTMENT OF PATHOLOGY AND [address] [place] [address] Hemoglobin A1c (04/15/2018 7:02 AM CDT)Only the most recent of2 resultswithin the time period is included. Hemoglobin A1C 5.5 4.0 - 5.6 % [facility] DEPARTMENT OF PATHOLOGY Comment: [facility] HbA1c cutoffs for diagnosing diabetes: 4.0% - 5.6%=normal 5.7% - 6.4%=increased risk for diabetes (prediabetes) >=6.5%=diabetes Goals for glycemic control (ADA 2016) < 7.0%Target for non adults with diabetes. More or less stringent targets may be appropriate for individual patients. <7.5% Target for Children and adolescents with type 1 diabetes. Specimen Blood Performing Organization Address City/State/Zipcode Phone Number [facility] DEPARTMENT OF PATHOLOGY AND [address] [place] [address] [facility] Urinalysis, automated with microscopy (04/14/2018 8:30 PM CDT) Color, UA Straw [facility] DEPARTMENT OF PATHOLOGY AND GENOMIC MEDICINE Appearance, UA Clear [facility] DEPARTMENT OF PATHOLOGY AND GENOMIC MEDICINE Specific gravity, UA 1.006 1.001 - 1.035 [facility] DEPARTMENT OF PATHOLOGY AND GENOMIC MEDICINE pH, UA 6.0 5.0 - 8.5 [facility] DEPARTMENT OF PATHOLOGY AND GENOMIC MEDICINE Protein, UA Negative Negative [facility] DEPARTMENT OF PATHOLOGY AND GENOMIC MEDICINE Glucose, UA Negative Negative [facility] DEPARTMENT OF PATHOLOGY AND GENOMIC MEDICINE Ketones, UA Negative Negative [facility] DEPARTMENT OF PATHOLOGY AND GENOMIC MEDICINE Bilirubin, UA Negative Negative [facility] DEPARTMENT OF PATHOLOGY AND GENOMIC MEDICINE Blood, UA Negative Negative [facility] DEPARTMENT OF PATHOLOGY AND GENOMIC MEDICINE Nitrite, UA Negative Negative [facility] DEPARTMENT OF PATHOLOGY AND GENOMIC MEDICINE Urobilinogen, UA <2.0 <2.0 [facility] DEPARTMENT OF PATHOLOGY AND GENOMIC MEDICINE Leukocyte esterase, UA Negative Negative [facility] DEPARTMENT OF PATHOLOGY AND GENOMIC MEDICINE Epithelial cells, UA 6 /HPF [facility] DEPARTMENT OF PATHOLOGY AND GENOMIC MEDICINE WBC, UA None seen 0 - 4 /HPF [facility] DEPARTMENT OF PATHOLOGY AND GENOMIC MEDICINE RBC, UA None seen 0 - 5 /HPF [facility] DEPARTMENT OF PATHOLOGY AND GENOMIC MEDICINE Bacteria, UA None seen None seen [facility] DEPARTMENT OF PATHOLOGY AND GENOMIC MEDICINE Yeast, UA None seen [facility] DEPARTMENT OF PATHOLOGY AND GENOMIC MEDICINE Yeast with pseudohyphae, UA None seen [facility] DEPARTMENT OF PATHOLOGY AND GENOMIC MEDICINE Specimen Urine Performing Organization Address City/[facility] Phone Number [facility] DEPARTMENT OF PATHOLOGY AND [address] [place] [address] Prealbumin level (04/14/2018 7:45 PM CDT) Prealbumin 15 (L) 16 - 32 mg/dL [facility] DEPARTMENT OF PATHOLOGY AND GENOMIC MEDICINE Specimen Serum Performing Organization Address [facility] Cent[facility]ode Phone Number [facility] DEPARTMENT OF PATHOLOGY AND [address] [place] [address] Phosphorus level (04/14/2018 7:45 PM CDT)Only the most recent of7 resultswithin the time period is included. Phosphorus 3.0 2.4 - 4.5 mg/dL [facility] DEPARTMENT OF PATHOLOGY AND GENOMIC MEDICINE Specimen Plasma specimen Performing Organization Address City/[facility] Cent[facility]ode Phone Number [facility] DEPARTMENT OF PATHOLOGY AND [address] [place] [address] Magnesium level (04/14/2018 7:45 PM CDT)Only the most recent of12 resultswithin the time period is included. Magnesium 2.2 1.6 - 2.6 mg/dL [facility] DEPARTMENT OF PATHOLOGY AND GENOMIC MEDICINE Specimen Plasma specimen Performing Organization Address City/[facility]ode Phone Number [facility] DEPARTMENT OF PATHOLOGY AND [address] [place] [address] Potassium level (04/14/2018 8:22 AM CDT)Only the most recent of3 resultswithin the time period is included. Potassium 3.5 3.5 - 5.0 mEq/L [facility] DEPARTMENT OF PATHOLOGY AND GENOMIC MEDICINE Specimen Plasma specimen Performing Organization Address City/[facility]ode Phone Number [facility] DEPARTMENT OF PATHOLOGY AND [address] [place] [phone] [place] [address] CBC hemogram (04/10/2018 3:25 AM CDT)Only the most recent of3 resultswithin the time period is included. WBC 5.93Comment: WBC was 4.50 - 11.00 k/uL [facility] DEPARTMENT OF corrected for NRBCs PATHOLOGY AND GENOMIC MEDICINE RBC 2.58 (L) 4.20 - 5.50 m/uL [facility] DEPARTMENT OF PATHOLOGY AND GENOMIC MEDICINE HGB 8.0 (L) 12.0 - 16.0 g/dL [facility] DEPARTMENT OF PATHOLOGY AND GENOMIC MEDICINE HCT 24.7 (L) 37.0 - 47.0 % [facility] DEPARTMENT OF PATHOLOGY AND GENOMIC MEDICINE MCV 95.7 82.0 - 100.0 fL [facility] DEPARTMENT OF PATHOLOGY AND GENOMIC MEDICINE MCH 31.0 27.0 - 34.0 pg [facility] DEPARTMENT OF PATHOLOGY AND GENOMIC MEDICINE MCHC 32.4 31.0 - 37.0 g/dL [facility] DEPARTMENT OF PATHOLOGY AND GENOMIC MEDICINE RDW - SD 60.1 (H) 37.0 - 55.0 fL [facility] DEPARTMENT OF PATHOLOGY AND GENOMIC MEDICINE MPV 11.1 8.8 - 13.2 fL [facility] DEPARTMENT OF PATHOLOGY AND GENOMIC MEDICINE Platelet count 147 (L) 150 - 400 k/uL [facility] DEPARTMENT OF PATHOLOGY AND GENOMIC MEDICINE Nucleated RBC 1.00 /100 WBC [facility] DEPARTMENT OF PATHOLOGY AND GENOMIC MEDICINE Performing Organization Address City/[facility] Phone Number [facility] DEPARTMENT OF PATHOLOGY AND [address] [place] [phone] [employer] [facility] Vancomycin level, trough (04/09/2018 9:26 AM CDT) Vancomycin, trough 18.9 10.0 - 20.0 ug/mL [facility] DEPARTMENT OF Comment: PATHOLOGY AND GENOMIC Therapeutic Ranges: MEDICINE Peak 30.0 - 40.0 ug/mL Gkxira83.0 - 20.0 ug/mL Specimen Serum Performing Organization Address City/[facility] Centercode Phone Number [facility] DEPARTMENT OF PATHOLOGY AND [address] [place] [phone] [facility] MEDICINE ECG 12 lead (04/08/2018 3:34 PM CDT)Only the most recent of4 resultswithin the time period is included. Ventricular rate 79 [facility]USE Atrial rate 79 [facility] AK interval 126 [facility] QRSD interval 82 [facility] QT interval 500 [facility] QTC interval 573 [facility] MUSE P axis 1 20 [facility] QRS axis 1 34 [facility] T wave axis 25 [facility] MUSE EKG impression Normal sinus rhythm-Possible Inferior infarct (cited on or before 03-APR-2018)-Nonspecific T wave abnormality-Prolonged QT-Abnormal ECG-In automated comparison with ECG of 05-APR-2018 14:40,-QT has lm [facility] MUSE thened- Performing Organization Address [facility] Phone Number [facility] MUSE [address] [place] [phone] Troponin (04/08/2018 3:04 PM CDT) Troponin <0.30 0.00 - 0.30 ng/mL [facility] DEPARTMENT OF PATHOLOGY Comment: AND GENOMIC MEDICINE 0.30 - 1.49 ng/mlMay indicate increased risk of acute coronary syndrome. >=1.5 ng/mlConsistent with acute myocardial infarction. The diagnostic value of a single normal or non-diagnostic result is questionable.Serial samples at 2-6 hour intervals are required to rule out acute myocardial injury. Specimen Plasma specimen Performing Organization Address City/[facility]/Zipcode Phone Number [facility] DEPARTMENT OF PATHOLOGY AND [address] [place] [phone] [facility] MEDICINE Vancomycin level, random (04/07/2018 5:07 PM CDT) Vancomycin, random 7.4 ug/mL [facility] DEPARTMENT OF PATHOLOGY AND GENOMIC MEDICINE Specimen Serum Performing Organization Address City/[facility] Phone Number [facility] DEPARTMENT OF PATHOLOGY AND [address] [place] [phone] [place] [address] Ionized calcium (04/07/2018 5:12 AM CDT)Only the most recent of2 resultswithin the time period is included. pH 7.44 [facility] DEPARTMENT OF PATHOLOGY AND GENOMIC MEDICINE Ionized calcium 1.06 (L) 1.11 - 1.32 mmol/L [facility] DEPARTMENT OF PATHOLOGY AND GENOMIC MEDICINE Specimen Plasma specimen Performing Organization Address City/[facility] Phone Number [facility] DEPARTMENT OF PATHOLOGY AND [address] XR Picc Chest Portable (04/06/2018 11:18 AM CDT) Narrative Performed At EXAMINATION:XR PICC CHEST PORTABLE [facility] CLINICAL HISTORY:M41.9 Scoliosisunspecified, Multiple IV meds COMPARISON:Chest x-ray 04/05/2018 IMPRESSION: Single frontal view reveals interval placement of a left-sided PICC line with tip overlying the SVC. The remainder of the examination is unchanged. [facility]-[id number] Procedure Note Interface, Radiology Results Incoming - 04/06/2018 11:23 AM CDT EXAMINATION: XR PICC CHEST PORTABLE CLINICAL HISTORY: M41.9 Scoliosis unspecified, Multiple IV meds COMPARISON: Chest x-ray 04/05/2018 IMPRESSION: Single frontal view reveals interval placement of a left-sided PICC line with tip overlying the SVC. The remainder of the examination is unchanged. [facility]-[id number] Performing Organization Address [facility] Phone Number [facility] [address] [place] [address] PICC INSERTION (04/06/2018 10:34 AM CDT) Narrative Performed At Bere Salazar RN 04/06/2018 10:43 AM PICC insertion Date/Time: 04/06/2018 10:34 AM Performed by: ZEUS CHENG Authorized by: BRANDT THOMAS Consent: Consent obtained:Verbal Consent given by:Patient Risks discussed: arterial puncture, incorrect placement, nerve damage, infection, bleeding, deep vein thrombus and superficial thrombus Alternatives discussed:No treatment, alternative treatment, delayed treatment, observation and referral [place] protocol: Procedure explained and questions answered to [...] LDA): Patient position:Flat Vessel Size (mm):3 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 IV 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 Location:Left basilic Device Type:Non-valved Catheter size:5 Fr PICC Characteristics: Catheter Brand:Interactivo picc External Catheter Length (cm):0 Internal Catheter Length (cm):44 Total Catheter Length (cm):44 Catheter Lot Number:[id number] Catheter Expiration Date:06/10/1920 Procedure Details: Landmarks identified: [...] name Apheresis Red Cell AS3 #1 LR [facility] DEPARTMENT OF PATHOLOGY AND GENOMIC MEDICINE Unit number [id number] [facility] DEPARTMENT OF PATHOLOGY AND GENOMIC MEDICINE Product code [id number] [facility] DEPARTMENT OF PATHOLOGY AND GENOMIC MEDICINE Dispense status Transfused [facility] DEPARTMENT OF PATHOLOGY AND GENOMIC MEDICINE Blood expiration date [id number] [facility] DEPARTMENT OF PATHOLOGY AND GENOMIC MEDICINE Blood type code 5100 [facility] DEPARTMENT OF PATHOLOGY AND GENOMIC MEDICINE Blood type O POSITIVE [facility] DEPARTMENT OF PATHOLOGY AND GENOMIC MEDICINE Performing Organization Address City/[facility]/Zipcode Phone Number [facility] DEPARTMENT OF PATHOLOGY AND [address] [place] [address] GENOMIC MEDICINE Type and screen (04/06/2018 6:40 AM CDT)Only the most recent of3 resultswithin the time period is included. ABO grouping O [facility] DEPARTMENT OF PATHOLOGY AND GENOMIC MEDICINE Rh type POS [facility] DEPARTMENT OF PATHOLOGY AND GENOMIC MEDICINE Antibody screen (gel) NEG [facility] DEPARTMENT OF PATHOLOGY AND GENOMIC MEDICINE Specimen Blood Performing Organization Address City/[facility]/Zipcode Phone Number [facility] DEPARTMENT OF PATHOLOGY AND [address] [place] [address] GENOMIC MEDICINE US Hepatic (04/05/2018 4:00 PM [...] given patient's history of cholecystectomy. No ascites. [id number] Procedure Note Interface, Radiology Results Incoming - 04/05/2018 4:27 [...] given patient's history of cholecystectomy. No ascites. [id number] Performing Organization Address [facility] Phone Number [facility] [address] [place] [address] XR Abdomen 1 Vw Portable (04/05/2018 12:38 [...] bowel loops is seen. IMPRESSION: As above [facility]-[id number] Procedure Note Hm Interface, Radiology Results Incoming - 04/05/2018 12:43 PM CDT EXAMINATION: XR ABDOMEN 1 VW PORTABLE CLINICAL HISTORY: Vomiting COMPARISON: None. FINDINGS: Extensive postoperative changes in the spine and hips. Stimulator device overlies the right lower quadrant. A catheter overlies the left flank. There is gas in the colon. No disproportionate dilatation of small bowel loops is seen. IMPRESSION: As above [facility]-[id number] Performing Organization Address [facility] Phone Number [facility] [address] [place] [address] Arterial blood gas (04/05/2018 10:20 AM CDT)Only the most recent of7 resultswithin the time period is included. pH, arterial 7.51 (H) 7.35 - 7.45 [facility] DEPARTMENT OF PATHOLOGY AND GENOMIC MEDICINE pCO2, arterial 31 (L) 35 - 45 mmHg [facility] DEPARTMENT OF PATHOLOGY AND GENOMIC MEDICINE pO2, arterial 163 (H) 80 - 90 mmHg [facility] DEPARTMENT OF PATHOLOGY AND GENOMIC MEDICINE Bicarbonate, arterial 24.3 21.0 - 28.0 mmol/L [facility] DEPARTMENT OF PATHOLOGY AND GENOMIC MEDICINE Base excess, arterial 2 -2 - 2 mEq/L [facility] DEPARTMENT OF PATHOLOGY AND GENOMIC MEDICINE O2 saturation, arterial 100 95 - 100 % [facility] DEPARTMENT OF PATHOLOGY AND GENOMIC MEDICINE Specimen Blood Performing Organization Address [facility] Phone Number [facility] DEPARTMENT OF PATHOLOGY AND [address] [place] [address] MEDICINE duplex venous lower extremity (04/05/2018 8:28 AM CDT) Narrative Performed At [facility] Vascular Ultrasound Laboratory Lower Extremity Venous Report [address] [place] [address] [address] [address] Pat.Name:MARINA MESSER.ID:[id number] .Date: 04/05/2018 Refer.MD:BRANDT THOMAS MD Exam Time: 8:02:00 AMStudy Type:LE Venous Height:67inWeight: 259lb BSA: 2.26 m2 DOBAge:1960,57Y Sex: FEMALESonogrphr: Harley Montiel, VALENTINE, DIXON Pat. Stat.:Inpatient Room:[place] [address] TapeVol: SB, CPT - 4: 68050 Echo Event ID:[id number] Order ID:[id number] Reason for Study:Tachypnea, evaluate for DVT. S/p [...] Ultrasound Laboratory Lower Extremity Venous Report [address] [address] Pat.Name: MARINA MESSER Pat.ID: [id number] St.Date: 04/05/2018 Refer.MD: BRANDT THOMAS MD Exam Time: 8:02:00 AM Study Type:LE Venous Height: 67in Weight: 259lb BSA: 2.26 m2 Age: 4 1960,57Y Sex: FEMALE Sonogrphr: VALENTINE Agarwal RCS Pat. Stat.:Inpatient Room: [address] Vol: SB, CPT - 4: 35976 Echo Event ID:[id number] Order ID: [id number] Reason for Study:Tachypnea, evaluate for DVT. S/p [...] Organization Address City/State/Zipcode Phone Number [facility] [address] [place] [address] CT Angiogram Pe Chest (04/05/2018 4:52 AM [...] no acute abnormality identified in the chest. [facility]-[id number] Procedure Note Interface, Radiology Results Incoming - [...] no acute abnormality identified in the chest. [facility]-[id number] Performing Organization Address City/[facility]/Zipcode Phone Number [facility] [address] [place] [phone] Blood culture, aerobic & anaerobic (04/05/2018 2:00 AM CDT)Only the most recent of2 resultswithin the time period is included. Blood culture isolate No growth after 5 days of incubation. [facility] DEPARTMENT OF Comment: PATHOLOGY AND GENOMIC Specimen Information MEDICINE Specimen Source: Blood Specimen Site: Antecubital Right Specimen Blood Performing Organization Address City/[facility] Phone Number [facility] DEPARTMENT OF PATHOLOGY AND [address] [place] [address] GENOMIC MEDICINE Manual differential (04/05/2018 12:10 AM CDT) Manual differential PERFORMED [facility] DEPARTMENT OF PATHOLOGY AND GENOMIC MEDICINE Neutrophils 57.0 39.0 - 69.0 % [facility] DEPARTMENT OF PATHOLOGY AND GENOMIC MEDICINE Lymphocytes 17.0 (L) 25.0 - 45.0 % [facility] DEPARTMENT OF PATHOLOGY AND GENOMIC MEDICINE Monocytes 26.0 (H) 0.0 - 10.0 % [facility] DEPARTMENT OF PATHOLOGY AND GENOMIC MEDICINE Eosinophils 0.0 0.0 - 5.0 % [facility] DEPARTMENT OF PATHOLOGY AND GENOMIC MEDICINE Basophils 0.0 0.0 - 1.0 % [facility] DEPARTMENT OF PATHOLOGY AND GENOMIC MEDICINE Metamyelocytes 0 % [facility] DEPARTMENT OF PATHOLOGY AND GENOMIC MEDICINE Promyelocytes 0 % [facility] DEPARTMENT OF PATHOLOGY AND GENOMIC MEDICINE Platelet slide review Katie slt decr [facility] DEPARTMENT OF PATHOLOGY AND GENOMIC MEDICINE Performing Organization Address City/[facility]ode Phone Number [facility] DEPARTMENT OF PATHOLOGY AND [address] [place] [address] GENOMIC MEDICINE Hemoglobin & hematocrit (04/04/2018 4:00 PM CDT) HGB 6.9 (LL) 12.0 - 16.0 g/dL [facility] DEPARTMENT OF PATHOLOGY Comment: AND GENOMIC MEDICINE HGB results called to and read back by SAMARIA SOUSA/FRITZ(name/location) at 04/04/201816:18 (date/time) by PC. HCT 20.4 (L) 37.0 - 47.0 % [facility] DEPARTMENT OF PATHOLOGY AND GENOMIC MEDICINE Specimen Blood Performing Organization Address City/State/Zipcode Phone Number [facility] DEPARTMENT OF PATHOLOGY AND [address] [place] [address] [employer] [address] Head Wo Contrast (04/03/2018 9:08 PM [...] suggested if further evaluation is clinically indicated. [facility]-[id number] Procedure Note Interface, Radiology Results Incoming - [...] suggested if further evaluation is clinically indicated. [facility]-[id number] Performing Organization Address City/[facility]/Zipcode Phone Number [address] [address] Sodium level, syringe (04/03/2018 5:05 PM CDT)Only the most recent of6 resultswithin the time period is included. Sodium, syringe 135 135 - 148 mEq/L [facility] DEPARTMENT OF PATHOLOGY AND GENOMIC MEDICINE Specimen Blood Performing Organization Address City/[facility] Phone Number [facility] DEPARTMENT OF PATHOLOGY AND [address] [place] [address] MEDICINE Potassium, syringe (04/03/2018 5:05 PM CDT)Only the most recent of6 resultswithin the time period is included. Potassium, syringe 3.8 3.5 - 5.0 mEq/L [facility] DEPARTMENT OF PATHOLOGY AND GENOMIC MEDICINE Specimen Blood Performing Organization Address [facility] Phone Number [facility] DEPARTMENT OF PATHOLOGY AND [address] [place] [address] MEDICINE Lactic acid, syringe (04/03/2018 5:05 PM CDT)Only the most recent of6 resultswithin the time period is included. Lactic acid, syringe 1.3 0.5 - 2.2 mmol/L [facility] DEPARTMENT OF PATHOLOGY AND GENOMIC MEDICINE Specimen Blood Performing Organization Address [facility]/Zipcode Phone Number [facility] DEPARTMENT OF PATHOLOGY AND [address] [place] [address] MEDICINE Ionized calcium, arterial (04/03/2018 5:05 PM CDT)Only the most recent of6 resultswithin the time period is included. Ionized calcium, 0.93 (L)Comment: 1.11 - 1.32 mmol/L [facility] DEPARTMENT OF arterial Specimen is slightly PATHOLOGY AND GENOMIC hemolyzed. Interpret MEDICINE results accordingly. Specimen Blood Performing Organization Address [facility] Phone Number [facility] DEPARTMENT OF PATHOLOGY AND [address] [place] [address] Hemoglobin, syringe (04/03/2018 5:05 PM CDT)Only the most recent of6 resultswithin the time period is included. Hemoglobin, syringe 9.2 (L) 12.0 - 16.0 g/dL [facility] DEPARTMENT OF PATHOLOGY AND GENOMIC MEDICINE Specimen Blood Performing Organization Address [facility] Phone Number [facility] DEPARTMENT OF PATHOLOGY AND [address] [place] [address] MEDICINE Glucose level, syringe (04/03/2018 5:05 PM CDT)Only the most recent of6 resultswithin the time period is included. Glucose, syringe 193 (H) 65 - 99 mg/dL [facility] DEPARTMENT OF PATHOLOGY AND GENOMIC MEDICINE Specimen Blood Performing Organization Address [facility] Phone Number [facility] DEPARTMENT PATHOLOGY AND [address] [place] [address] Arterial blood gas, corrected (04/03/2018 5:05 PM CDT)Only the most recent of6 resultswithin the time period is included. pH, arterial 7.35 7.35 - 7.45 [facility] DEPARTMENT OF PATHOLOGY AND GENOMIC MEDICINE pCO2, arterial 40 35 - 45 mmHg [facility] DEPARTMENT OF PATHOLOGY AND GENOMIC MEDICINE pO2, arterial 189 (H) 80 - 90 mmHg [facility] DEPARTMENT OF PATHOLOGY AND GENOMIC MEDICINE Temperature, Celsius 37.0 Degrees C [facility] DEPARTMENT OF PATHOLOGY AND GENOMIC MEDICINE O2 saturation, arterial 100 95 - 100 % [facility] DEPARTMENT OF PATHOLOGY AND GENOMIC MEDICINE pH, arterial corrected 7.35 [facility] DEPARTMENT OF PATHOLOGY AND GENOMIC MEDICINE pCO2, arterial corrected 40 mmHg [facility] DEPARTMENT OF PATHOLOGY AND GENOMIC MEDICINE pO2, arterial corrected 189 mmHg [facility] DEPARTMENT OF PATHOLOGY AND GENOMIC MEDICINE Base excess, arterial -4 (L) -2 - 2 mEq/L [facility] DEPARTMENT OF PATHOLOGY AND GENOMIC MEDICINE Specimen Blood Performing Organization Address [facility] Phone Number [facility] DEPARTMENT OF PATHOLOGY AND [address] [place] [address] GENOMIC MEDICINE OR [place] > I Hour (04/03/2018 4:41 PM CDT)Only the most recent of3 resultswithin the time period is included. Narrative Performed At EXAMINATION:OR [place] 1 HOUR [facility] C-arm fluoroscopy was requested in OR. Location: [facility] OR room#19 O-ARM Scans:4 Procedure:L2-L3, L4-L5 LATERAL INTERBODY FUSION W/ INSTRUMENTATION; T4-PELVIS POSTERIOR FUSION W/ INSTRUMENTATION Start:7:32pm End:4:41pm Fluoro Time:12.17sec Dose(mGy):157.22 Tech:QTN/MA Date:04/03/18 IMPRESSION: Separate operative report will be issued by the physician performing the procedure. [id number] Procedure Note Interface, Radiology Results Incoming - 04/03/2018 10:11 PM CDT EXAMINATION: OR [place] 1 HOUR C-arm fluoroscopy was requested in OR. Location: [facility] OR room#19 O-ARM Scans:4 Procedure:L2-L3, L4-L5 LATERAL INTERBODY FUSION W/ INSTRUMENTATION; T4-PELVIS POSTERIOR FUSION W/ INSTRUMENTATION Start:7:32pm End:4:41pm Fluoro Time:12.17sec Dose(mGy):157.22 Tech:QTN/MA Date:04/03/18 IMPRESSION: Separate operative report will be issued by the physician performing the procedure. [id number] Performing Organization Address City/State/Zipcode Phone Number [facility] [address] [place] [address] XR Lumbar Spine 1 Vw (04/03/2018 4:31 [...] lower thoracic spine for localization during surgery. [id number] Procedure Note Interface, Radiology Results Incoming - [...] lower thoracic spine for localization during surgery. [facility]-[id number] Performing Organization Address City/State/Zipcode Phone Number [facility] [address] [place] [address] XR Cervical Spine 1 Vw (04/03/2018 4:31 PM CDT) Narrative Performed At EXAMINATION: XR CERVICAL SPINE 1 VW [facility] CLINICAL HISTORY: Cervical region neck pain and [...] upper thoracic spine for localization during surgery. [facility]-[id number] Procedure Note Interface, Radiology Results Incoming - [...] upper thoracic spine for localization during surgery. [facility]-[id number] Performing Organization Address [facility] Centercode Phone Number [facility] [address] [place] [id number] Surgical pathology request (04/03/2018 7:41 AM CDT)Only the most recent of2 resultswithin the time period is included. [facility] DEPARTMENT OF PATHOLOGY AND GENOMIC MEDICINE Surgical pathology report See link below for PDF [facility] DEPARTMENT OF Lab Report PATHOLOGY AND GENOMIC MEDICINE Result status This is Final Report to [facility] DEPARTMENT OF [id number] PATHOLOGY AND GENOMIC MEDICINE Performing Organization Address [facility] Centercode Phone Number [facility] DEPARTMENT OF PATHOLOGY AND [address] [place] [address] [facility] Partial thromboplastin time, activated (04/03/2018 4:28 AM CDT)Only the most recent of3 resultswithin the time period is included. PTT 35.9 23.0 - 36.0 sec [facility] DEPARTMENT OF PATHOLOGY Comment: AND GENOMIC [facility] PTT therapeutic range for unfractionated heparin is 61.0-112.0 seconds which corresponds to Anti-Xa 0.3-0.7 U/ml. Specimen Blood Performing Organization Address [facility] Phone Number [facility] DEPARTMENT OF PATHOLOGY AND [address] [place] [address] Prothrombin time with INR (04/03/2018 4:28 AM CDT)Only the most recent of3 resultswithin the time period is included. Prothrombin time 13.8 12.0 - 15.0 sec [facility] DEPARTMENT OF PATHOLOGY AND GENOMIC MEDICINE INR 1.0 [facility] DEPARTMENT OF Comment: PATHOLOGY AND GENOMIC The International Normalized Ratio (INR) is a therapeutic MEDICINE monitoring tool for patients who are stable on oral anticoagulant therapy. An INR of 2.0-3.0 is suggested for deep vein thrombosis/pulmonary embolism. Specimen Blood Performing Organization Address [facility]/Zipcode Phone Number [facility] DEPARTMENT OF PATHOLOGY AND [address] [place], [place] [id number] [facility] Hemoglobin (04/02/2018 4:00 AM CDT) HGB 10.3 (L) 12.0 - 16.0 g/dL [facility] DEPARTMENT OF PATHOLOGY AND GENOMIC MEDICINE Specimen Blood Performing Organization Address City/[facility]/Zipcode Phone Number [facility] DEPARTMENT OF PATHOLOGY AND [address] [place], [place] [phone] [facility] CT Thoracic Spine Wo Contrast (03/31/2018 5:00 [...] the facet joints bilaterally at these levels. [facility]-[id number] Procedure Note Hm Interface, Radiology Results Incoming - 03/31/2018 5:44 [...] the facet joints bilaterally at these levels. [facility]-[id number] Performing Organization Address City/State/Zipcode Phone Number [facility] [address] [place] [address] CT Lumbar Spine Wo Contrast (03/31/2018 4:59 [...] Expected postoperative changes. Degenerative changes as above. [facility]-[id number] Procedure Note Interface, Radiology Results Incoming - [...] Expected postoperative changes. Degenerative changes as above. [facility]-[id number] Performing Organization Address City/[facility]/Zipcode Phone Number [facility] [address] [place] [address] Lactic acid level (03/31/2018 3:00 PM CDT) Lactic acid 3.9 (HH) 0.5 - 2.2 mmol/L [facility] DEPARTMENT OF PATHOLOGY AND GENOMIC MEDICINE Specimen Blood Performing Organization Address City/State/Zipcode Phone Number [facility] DEPARTMENT OF PATHOLOGY AND [address] [place] [address] GENOMIC MEDICINE XR Chest 2 Vw (03/16/2018 5:24 PM CDT) Narrative Performed At Examination: XR CHEST 2 VW [facility] Clinical history: Z01.818 Encounter for other preprocedural examination, PREOP Comparison: None Impression: 1. The heart and pulmonary vasculature are within normal limits. 2. No infiltrate or effusion is demonstrated. Right middle lobe linear atelectasis is likely chronic. 3. There is no acute osseous pathology. Thoracolumbar scoliosis distorts the mediastinal anatomy. CONCLUSION: NO RADIOGRAPHIC EVIDENCE OF ACUTE CARDIOPULMONARY ABNORMALITY. [facility]-[id number] Procedure Note Hm Interface, Radiology Results Incoming [...] NO RADIOGRAPHIC EVIDENCE OF ACUTE CARDIOPULMONARY ABNORMALITY. [facility]-[id number] Performing Organization Address City/[facility]/Zipcode Phone Number [facility] [address] [place] [address] Vitamin D 25 hydroxy level (03/16/2018 4:21 PM CDT) Vitamin D, 25-hydroxy 42.7 30.0 - 150.0 [facility] DEPARTMENT OF Comment: ng/mL PATHOLOGY AND GENOMIC [...] alternative methods. Specimen Blood Performing Organization Address City/State/Zipcode Phone Number [facility] DEPARTMENT OF PATHOLOGY AND [address] [place] [address] [facility] Parathyroid hormone (03/16/2018 4:21 PM CDT) PTH 55 15 - 65 pg/mL [facility] DEPARTMENT OF PATHOLOGY AND GENOMIC MEDICINE Specimen Blood Performing Organization Address City/[facility]/Zipcode Phone Number [facility] DEPARTMENT OF PATHOLOGY AND [address] [place] [address] [facility] Hepatic function panel (03/16/2018 4:21 PM CDT) Albumin 3.6 3.5 - 5.0 g/dL [facility] DEPARTMENT OF PATHOLOGY AND GENOMIC MEDICINE Total bilirubin <0.2 0.0 - 1.2 mg/dL [facility] DEPARTMENT OF PATHOLOGY AND GENOMIC MEDICINE Bilirubin direct <0.2 0.0 - 0.3 mg/dL [facility] DEPARTMENT OF PATHOLOGY AND GENOMIC MEDICINE Alkaline phosphatase 91 35 - 104 U/L [facility] DEPARTMENT OF PATHOLOGY AND GENOMIC MEDICINE Protein 7.8 6.3 - 8.3 g/dL [facility] DEPARTMENT OF Comment: PATHOLOGY AND GENOMIC 4.6-7.0 g/dL MEDICINE 1 week 4.4-7.6 g/dL 7 months-1year5.1-7.3 g/dL 1-2 years5.6-7.5 g/dL >3 years6.0-8.0 g/dL 18-150 6.3-8.3 g/dL ALT 50 5 - 50 U/L [facility] DEPARTMENT OF PATHOLOGY AND GENOMIC MEDICINE AST 31 10 - 35 U/L [facility] DEPARTMENT OF PATHOLOGY AND GENOMIC MEDICINE Specimen Plasma specimen Performing Organization Address City/State/Zipcode Phone Number [facility] DEPARTMENT OF PATHOLOGY AND [address] [place] [address] [facility] Bone Density Peripheral (02/04/2018 5:25 PM CDT) Narrative Performed At EXAMINATION:BONE DENSITY PERIPHERAL [facility] CLINICAL HISTORY:M80.00XA Age-related osteoporosis with current pathological fracture COMPARISON:None. The results of this study expressed as bone mineral density (BMD) were as follows: Left Forearm (Radius 33%): BMD: 0.847 g/cm2 T-Score: -0.3 Z-Score: 0.3 Percent change: No prior exam. % Impression:Normal BMD. [facility]-[id number] A copy of this scans including a [...] No prior exam. % Impression: Normal BMD. [facility]-[id number] A copy of this scans including a [...] age. Performing Organization Address City/State/Zipcode Phone Number [facility] [address] [place] [address] Bone Density (02/04/2018 5:25 PM CDT) Narrative Performed At EXAMINATION:BONE DENSITY [facility] CLINICAL HISTORY:M80.00XA Age-related osteoporosis with current pathological [...] effect of treatments on patient over time. [facility]-[id number] Procedure Note [facility], Radiology Results Incoming - 02/04/2018 5:52 PM [...] effect of treatments on patient over time. [facility]-[id number] Performing Organization Address City/State/Zipcode Phone Number [facility] [address] [place] [address] after 12/14/2017 Insurance Payer Benefit Plan / Group Subscriber ID Type Phone Address [facility]/NETWORK xxxxxxxxxxx O Advance Directives Patient has advance care planning documents on file. For more information, please contact:G[address]var[address] [place] [address]
--- OUTSIDE RECORDS SUMMARY | 2018-12-15 07:41 | XMS REPORT | Continuity of Care Document ---
:1960 Author Organization Interface Problems Problem Status Onset Classification Date Comments Source Date Reported BACK Active [facility] 018 [facility] BACK / AQUA Active [facility] 018 [facility] ARTHROPATHY OF LUMBAR Active [facility] FACET JOINTS [address] [place] ARTHROPATHY OF LUMBAR Active [facility] FACET JOINT [address] [place] Bipolar 1 disorder [...] Duration: 30 day, Stop date: 08/17/17 12:16:00 APPLICATIONS DEVELOPMENT CONSULTANT ketOROLAC 15 15 mg, 0.5 mL, Inactive [...] not exceed 4gm/day of acetaminophen. (Same as: [place] 325/10) Saline Flush 10 ml, Route: No [...] Duration: 30 day, Stop date: 08/17/17 10:41:00 APPLICATIONS DEVELOPMENT CONSULTANT Hydromorphone 0.5 mg, 0.25 mL, No Longer [...] not exceed 4gm/day of acetaminophen. (Same as: [place] 325/10) Lactated Ringers 1,000 mL, Rate: Inactive [...] not exceed 4gm/day of acetaminophen. (Same as: [place] 325/10) Lactated Ringers 1,000 mL, Rate: No [...] not exceed 4gm/day of acetaminophen. (Same as: [place] 325/10) Ondansetron 4 mg, 2 mL, No [...] Type Number For Provider Date Date Visit [facility] Day [id number] [facility] 03[facility]29 [facility] Ortho Orthopedic [facility] Sp[facility] [id number] [facility] 04/18 04/19 [facility] Ortho Orthopedic and and Spine Spine [facility] [id number] [facility] 06/06 06/07 [facility] Ortho Orthopedic and and Spine Spine [facility] [id number] [facility] 07/18 07/19 [facility] Ortho Orthopedic and and Spine Spine [facility] Procedures Procedure Code Date Perfomer Comments Source Injection [id number] 07/18/2017 [facility] Lumbar epidural [id number] 04/18/2017 Diagnostic/ther Ortho and block<sup>1</sup> apuetic Spine bilateral L2-L5 medial branch blocks Injection of facet [id number] 03/28/2017 Ortho and joint Spine Sling procedure of [id number] 09/22/20152012 procedure [facility] Ortho and bladder on bladder Spine neck<sup>2</sup> Sling procedure of [id number] 09/22/20152012 procedure Ortho and bladder on bladder Spine neck<sup>1</sup> Hip [id number] 09/22/2014 [id number] left Ortho and replacement<sup>3, hip repair Spine 4</sup> Hip [id number] 09/22/2014 [id number] left Ortho and replacement<sup>2, hip repair Spine 3</sup> Hip [id number] 09/22/2013 right [facility] Ortho and replacement<sup>5</ Spine sup> Hip [id number] 09/22/2013 right Ortho and replacement<sup>4</ Spine sup> Insertion of [id number] 09/22/2007 pain pump 2007 Ortho and infusion and 2014 Spine pump<sup>6</sup> Insertion of [id number] 09/22/2007 pain pump 2007 Ortho and infusion and 2014 Spine pump<sup>5</sup> Carpal tunnel [id number] 09/22/2005 Ortho and release Spine Tonsillectomy [id number] 09/22/1965 Ortho and Spine
[2018-12-15] MEDS ORDERED: NA CHLORIDE 0.9% 250 ML ONE ×2 (08:25→10:59)
== END 2018-12-15 15:05 | disposition home or self-care (01) ==
LOC: DS 07:35
PROVIDERS: ATTEND Internal Medicine Medical Oncology
PROC: 30233N1 Transfusion of Nonautologous Red Blood Cells into Peripheral Vein, Percutaneous Approach (ICD-10-PCS; principal; 2018-12-15)
DX: C92.00 Acute myeloblastic leukemia, not having achieved remission (principal)
CPT/HCPCS: 36415; 36430; 85014; 85018; 86850; 86900; 86901; P9040

== ENCOUNTER 2019-01-13 21:54 | Emergency (ER) | payer OTHER ==
--- OUTSIDE RECORDS SUMMARY | 2019-01-13 21:59 | XMS REPORT | Clinical Summary ---
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 03/31/2018 Surgery General Surgery William, L5-S1 ANTERIOR [...] pathological fracture, initial encounter (Primary Dx) after 01/12/2018 Family History Medical History Relation Name Comments [...] Description 04/07/2019 Appointment Radiology Brandt Thomas MD [address] [place], [place] [phone] 04/07/2019 Appointment Radiology Brandt Thomas MD [address] [place], [place] [phone] 04/07/2019 Office Visit Neurosurgery Brandt Thomas MD [address] [place], [place] [phone] Health Maintenance Due Date Last Done Comments CERVICAL CANCER SCREENING 1981 BREAST CANCER SCREENING 2010 COLON CANCER SCREENING 2010 SHINGLES VACCINES (#1) 2010 INFLUENZA VACCINE 04/22/2019 10/16/2018 Implants Implanted Type Area Customer Experience Strategist Device Shelf Model / Identifier Expiration Serial / Lot Date Bone Matriz Osteocel Pro Large - [id number] - [id number] Human Tissue N/A: NUVASIVE 02/18/2023 [id number] / Implanted: Qty: 1 on 03/31/2018 by Brandt Thomas MD Implants N/A [id number] / [id number] Paste Dbm Easy-Dispensing Wdmth Syr 10ml [address] - [id number] - [id number] Human Tissue Posteri MEDTRONIC 10/28/2019 [id number] / Implanted: Qty: 1 on 04/03/2018 by Brandt Thomas MD Implants or: N/A SPINAL GRAFT [id number] / TECHNOLOGIES [id number] Paste Dbm Easy-Dispensing Wdmth Syr 10ml [address] - [id number] - [id number] Human Tissue Posteri MEDTRONIC 10/30/2019 [id number] / Implanted: Qty: 1 on 04/03/2018 by Brandt Thomas MD Implants or: N/A SPINAL GRAFT [id number] / TECHNOLOGIES [id number] Bone Cancellous 30ml Chips - [id number] - [id number] Human Tissue Posteri RTI SURGICAL 01/30/2022 [id number] / Implanted: Qty: 1 on 04/03/2018 by Brandt Thomas MD Implants or: N/A INC. [id number] / [id number] Bone Cancellous 30ml Chips - [id number] - [id number] Human Tissue Posteri RTI SURGICAL 01/30/2022 [id number] / Implanted: Qty: 1 on 04/03/2018 by Brandt Thomas MD Implants or: N/A INC. [id number] / [id number] Bone Matriz Osteocel Pro Large - [id number] - [id number] Human Tissue N/A: NUVASIVE 11/13/2022 [id number] / Implanted: Qty: 1 on 04/03/2018 by Brandt Thomas MD Implants N/A [id number] / [id number] Kit Bone Grft Lmbr Tprd 8ml Xxl Infuse - [id number] Human Tissue Posteri MEDTRONIC 02/20/2019 [id number] / Implanted: Qty: 1 on 04/03/2018 by Brandt Thomas MD Implants or: N/A SPINAL AND / BIOLOGICS [id number] Kit Bone Grft Lmbr Tprd 8ml Xxl Infuse - [id number] Human Tissue Posteri MEDTRONIC 02/20/2019 [id number] / Implanted: Qty: 1 on 04/03/2018 by Brandt Thomas MD Implants or: N/A SPINAL AND / BIOLOGICS [id number] Maxcess 4 Surgical Access Kit - [id number] IPM IMPLANT N/A: NUVASIVE SPINE [id number] / Implanted: Qty: 1 on 03/31/2018 by Brandt Thomas MD DEVICES N/A / Base Ti Imp, 7b09x01 10 - [id number] IPM IMPLANT N/A: NUVASIVE SPINE [id number] / Implanted: Qty: 1 on 03/31/2018 by Brandt Thomas MD DEVICES N/A / Base Ti Colbert 6.0 X 17.5mm Variable - [id number] IPM IMPLANT N/A: NUVASIVE SPINE [id number] / Implanted: Qty: 1 on 03/31/2018 by Brandt Thomas MD DEVICES N/A / Modulus Xlw, [id number] 15deg - [id number] IPM IMPLANT N/A: NUVASIVE SPINE 01/05/2023 [id number] / Implanted: Qty: 1 on 04/03/2018 by Brandt Thomas MD DEVICES N/A / [id number] Modulus Xlw, [id number] 15deg - [id number] IPM IMPLANT N/A: NUVASIVE SPINE 01/05/2023 [id number] / Implanted: Qty: 1 on 04/03/2018 by Brandt Thomas MD DEVICES N/A / [id number] Maxcess 4 Surgical Access Kit - [id number] IPM IMPLANT N/A: NUVASIVE SPINE [id number] / Implanted: 04/03/2018 (Quantity not on file) DEVICES N/A / Unid Patient Specific William 5.5 - [id number] IPM IMPLANT N/A: MEDICREA INT'L 07/04/2018 [id number] / Implanted: 04/03/2018 (Quantity not on file) DEVICES N/A / [id number] Screw [id number] Bs Cnmas 7.5x80 T/C - [id number] IPM IMPLANT Posteri MEDTRONIC [id number] / Implanted: Qty: 1 on 04/03/2018 by Brandt Thomas MD DEVICES or: N/A SOFAMOR DANEK / Screw [id number] 5.5 Mas 7.5x100 Cc - [id number] IPM IMPLANT Posteri MEDTRONIC [id number] / Implanted: Qty: 1 on 04/03/2018 by Brandt Thomas MD DEVICES or: N/A SOFAMOR DANEK / Screw [id number] 5.5 Mas 5.5x35 Cc - [id number] IPM IMPLANT Posteri MEDTRONIC [id number] / Implanted: Qty: 4 on 04/03/2018 by Brandt Thomas MD DEVICES or: N/A SOFAMOR DANEK / Screw [id number] 5.5 Mas 5.5x40 Cc - [id number] IPM IMPLANT Posteri MEDTRONIC [id number] / Implanted: Qty: 3 on 04/03/2018 by Brandt Thomas MD DEVICES or: N/A SOFAMOR DANEK / Screw [id number] 5.5 Mas 5.5x45 Cc - [id number] IPM IMPLANT Posteri MEDTRONIC [id number] / Implanted: Qty: 12 on 04/03/2018 by Brandt Thomas MD DEVICES or: N/A SOFAMOR DANEK / Screw [id number] 5.5 Mas 5.5x50 Cc - [id number] IPM IMPLANT Posteri MEDTRONIC [id number] / Implanted: Qty: 2 on 04/03/2018 by Brandt Thomas MD DEVICES or: N/A SOFAMOR DANEK / Screw [id number] 5.5 Mas 6.5x50 Cc - [id number] IPM IMPLANT Posteri MEDTRONIC [id number] / Implanted: Qty: 1 on 04/03/2018 by Brandt Thomas MD DEVICES or: N/A SOFAMOR DANEK / Screw [id number] 5.5 Mas 6.5x45 Cc - [id number] IPM IMPLANT Posteri MEDTRONIC [id number] / Implanted: Qty: 3 on 04/03/2018 by Brandt Thomas MD DEVICES or: N/A SOFAMOR DANEK / Screw [id number] 5.5 Mas 7.5x40 Cc - [id number] IPM IMPLANT Posteri MEDTRONIC [id number] / Implanted: Qty: 1 on 04/03/2018 by Brandt Thomas MD DEVICES or: N/A SOFAMOR DANEK / Screw [id number] 5.5 Mas 7.5x35 Cc - [id number] IPM IMPLANT Posteri MEDTRONIC [id number] / Implanted: Qty: 1 on 04/03/2018 by Brandt Thomas MD DEVICES or: N/A SOFAMOR DANEK / Screw [id number] 5.5 Mas 8.5x50 Cc - [id number] IPM IMPLANT Posteri MEDTRONIC [id number] / Implanted: Qty: 1 on 04/03/2018 by Brandt Thomas MD DEVICES or: N/A SOFAMOR DANEK / Screw [id number] 5.5 Mas 8.5x40 Cc - [id number] IPM IMPLANT Posteri MEDTRONIC [id number] / Implanted: Qty: 1 on 04/03/2018 by Brandt Thomas MD DEVICES or: N/A SOFAMOR DANEK / Screw [id number] 5.5 Mas 6.5x50 Cc - [id number] IPM IMPLANT Posteri MEDTRONIC [id number] / Implanted: Qty: 1 on 04/03/2018 by Brandt Thomas MD DEVICES or: N/A SOFAMOR DANEK / Connector [id number] 5/6-6.0 Clsd Lat 20 - [id number] IPM IMPLANT Posteri MEDTRONIC [id number] / Implanted: Qty: 1 on 04/03/2018 by Brandt Thomas MD DEVICES or: N/A SOFAMOR DANEK / Connector [id number] 5/6-6.0 Clsd Lat 25 - [id number] IPM IMPLANT Posteri MEDTRONIC [id number] / Implanted: Qty: 1 on 04/03/2018 by Brandt Thomas MD DEVICES or: N/A SOFAMOR DANEK / Material Bone Hmsts Wtrsolbl 2.5g Ostene - [id number] Orthopedic N/A: [id number] / Implanted: Qty: 1 on 03/31/2018 by Brandt Thomas MD Trauma N/A / Implants [id number] Material Bone Hmsts Wtrsolbl 2.5g Ostene - [id number] Orthopedic N/A: [id number] / Implanted: Qty: 1 on 03/31/2018 by Brandt Thomas MD Trauma N/A / Implants [id number] Material Bone Hmsts Wtrsolbl 2.5g Ostene - [id number] Orthopedic N/A: [id number] / Implanted: Qty: 1 on 04/03/2018 by Brandt Thomas MD Trauma N/A / Implants [id number] Material Bone Hmsts Wtrsolbl 2.5g Ostene - [id number] Orthopedic N/A: [id number] / Implanted: Qty: 1 on 04/03/2018 by Brandt Thomas MD Trauma N/A / Implants [id number] Screw Bone Canc Lag 4x30mm Ns - [id number] Orthopedic Posteri MEDTRONIC [id number] / Implanted: Qty: 32 on 04/03/2018 by Brandt Thomas MD Trauma or: N/A SOFAMOR DANEK / Implants Kit Dil M5 Xlif - [id number] Spinal N/A: NUVASIVE [id number] / Implanted: Qty: 1 on 03/31/2018 by Brandt Thomas MD Implants N/A / Kit Dil M5 Xlif - [id number] Spinal N/A: NUVASIVE [id number] / Implanted: 04/03/2018 (Quantity not on file) Implants N/A / Screw Set Std Ti 1/4in 32mm - [id number] Spinal Posteri MEDTRONIC [id number] / Implanted: Qty: 2 on 04/03/2018 by Brandt Thomas MD Implants or: N/A SPINAL AND / BIOLOGICS Procedures Procedure Name Priority Date/Time Associated Diagnosis Comments XR SPINE SCOLIOSIS 2-3 Routine 10/12/2018 2:09 Scoliosis of Results for this VIEWS PM AERIAL GUNNER thoracolumbar spine, procedure are in unspecified scoliosis [...] DIFF procedure are in the results section. IN AN ELECTIVE ENDOTRACHEAL Routine 04/03/2018 8:10 AM CDT AIRWAY Procedure Note - Lor Mosher CRNA - 04/03/2018 8:10 AM CDT Airway Date/Time: [...] Case Notes PT TBA ON 03/31, DR REYNALDO EPPS, CHELAN PRO AXIS TABLE, STEALTH S7, OARM, AQUAMANTYS, BONE SCAPEL, MEDTRONIC INSTRUMENATION, EMG, MEPS, SSEPS Special Needs PT TBA ON 03/31, DR JACOBS CO-SURGEON, CHELAN PRO AXIS TABLE, STEALTH S7, OARM, AQUAMANTYS, BONE SCAPEL, MEDTRONIC INSTRUMENATION, EMG, MEPS, SSEPS FUSION, SPINE, LUMBAR, XLIF 04/03/2018 7:30 AM CDT Other secondary scoliosis Case Notes PT TBA ON 03/31, DR JACOBS ASSISTING, CHELAN PRO AXIS TABLE, STEALTH S7, OARM, AQUAMANTYS, BONE SCAPEL, MEDTRONIC INSTRUMENATION, EMG, MEPS, SSEPS Special Needs PT TBA ON 03/31, DR JACOBS CO-SURGEON, CHELAN PRO AXIS TABLE, STEALTH S7, OARM, AQUAMANTYS, [...] 03/31/2018 7:49 AM Staff: Anesthesiologist: STEWART MCDOWELL Resident/HOCKEY INSTRUCTOR/AA: CRYSTAL SMART Performed by: Anesthesiologist Pre-procedure: patient [...] complications Notes: A-line placed by Dr. Mcdowell IN AN ELECTIVE ENDOTRACHEAL AIRWAY Routine 03/31/2018 8:53 AM CDT Procedure Note - Crystal Smart - 03/31/2018 8:53 AM CDT Airway Date/Time: 03/31/2018 7:47 AM Performed by: CRYSTAL SMART Authorized by: STEWART MCDOWELL Location: OR Urgency: Elective Difficult Airway: No Anesthesiologist: STEWART MCDOWELL Resident/HOCKEY INSTRUCTOR/AA: CRYSTAL SMART Performed by: resident/HOCKEY INSTRUCTOR/AA Preoxygenated with 100% O2: Yes C-spine Precautions [...] the results fracture, initial section. encounter after 01/12/2018 Results XR Spine Scoliosos 2-3 Views (10/12/2018 2:09 PM AERIAL GUNNER)Only the most recent of3 resultswithin the time [...] T11 level. There are bilateral hip arthroplasties. [id number] Procedure Note Interface, Radiology Results Incoming - 10/12/2018 2:47 PM AERIAL GUNNER EXAMINATION: XR SPINE SCOLIOSIS 2-3 VIEWS CLINICAL [...] T11 level. There are bilateral hip arthroplasties. [facility]-[id number] Performing Organization Address City/[facility] Phone Number [facility] [address] [place] [address] Transfuse RBC (05/27/2018 5:55 PM CDT)Only the most recent of4 resultswithin the time period is included.POC glucose (04/24/2018 7:13 AM CDT)Only the most recent of87 resultswithin the time period is included. POC glucose 106 (H) 65 - 99 mg/dL [facility] DEPARTMENT OF PATHOLOGY Comment: AND GENOMIC MEDICINE [facility] Notified RN Meter ID: [id number] Hide Cooking Operator: Vasile Holland Performing Organization Address City/State/[facility] Phone Number [facility] DEPARTMENT OF PATHOLOGY AND [address] [place] [address] [employer] MEDICINE Estimated GFR (04/20/2018 4:00 AM CDT)Only the most recent of22 resultswithin the time period is included. GFR Non Af Amer 74 mL/min/1.73 m2 [facility] DEPARTMENT OF PATHOLOGY AND GENOMIC MEDICINE GFR Af Amer 90 mL/min/1.73 m2 [facility] DEPARTMENT OF Comment: PATHOLOGY AND GENOMIC [...] Americans. Specimen Plasma specimen Performing Organization Address [facility] Phone Number [facility] DEPARTMENT OF PATHOLOGY AND [address] [place], [place] [address] [employer] [facility]ICINE Basic metabolic panel (04/20/2018 4:00 AM CDT)Only the most recent of18 resultswithin the time period is included. Sodium 139 135 - 148 mEq/L [facility] DEPARTMENT OF PATHOLOGY AND GENOMIC MEDICINE Potassium 3.9 3.5 - 5.0 mEq/L [facility] DEPARTMENT OF PATHOLOGY AND GENOMIC MEDICINE Chloride 100 98 - 112 mEq/L [facility] DEPARTMENT OF PATHOLOGY AND GENOMIC MEDICINE CO2 27 24 - 31 mEq/L [facility] DEPARTMENT OF PATHOLOGY AND GENOMIC MEDICINE Anion gap 12@ANIO 7 - 15 mEq/L [facility] DEPARTMENT OF PATHOLOGY AND GENOMIC MEDICINE BUN 9 6 - 20 mg/dL [facility] DEPARTMENT OF PATHOLOGY AND GENOMIC MEDICINE Creatinine 0.8 0.5 - 0.9 mg/dL [facility] DEPARTMENT OF PATHOLOGY AND GENOMIC MEDICINE Glucose 102 (H) 65 - 99 mg/dL [facility] DEPARTMENT OF PATHOLOGY AND GENOMIC MEDICINE Calcium 9.1 8.3 - 10.2 mg/dL [facility] DEPARTMENT OF PATHOLOGY AND GENOMIC MEDICINE Specimen Plasma specimen Performing Organization Address City/[facility]/Zipcode Phone Number [facility] DEPARTMENT OF PATHOLOGY AND [address] [place], [place] [address] GENOMIC MEDICINE Smear review (04/18/2018 5:00 AM CDT)Only the most recent of5 resultswithin the time period is included. Platelet slide review Katie adequate [facility] DEPARTMENT OF PATHOLOGY AND GENOMIC MEDICINE Anisocytosis Moderate [facility] DEPARTMENT OF PATHOLOGY AND GENOMIC MEDICINE Polychromasia Moderate [facility] DEPARTMENT OF PATHOLOGY AND GENOMIC MEDICINE Ovalocytes Moderate [facility] DEPARTMENT OF PATHOLOGY AND GENOMIC MEDICINE Enlarged platelets Moderate (A) [facility] DEPARTMENT OF PATHOLOGY AND GENOMIC MEDICINE Performing Organization Address City/State/Zipcode Phone Number [facility] DEPARTMENT OF PATHOLOGY AND [address] [place] [address] GENOMIC MEDICINE CBC with platelet and differential (04/18/2018 5:00 AM CDT)Only the most recent of15 resultswithin the time period is included. WBC 4.06 (L) 4.50 - 11.00 k/uL [facility] DEPARTMENT OF PATHOLOGY AND GENOMIC MEDICINE RBC 2.73 (L) 4.20 - 5.50 m/uL [facility] DEPARTMENT OF PATHOLOGY AND GENOMIC MEDICINE HGB 8.4 (L) 12.0 - 16.0 g/dL [facility] DEPARTMENT OF PATHOLOGY AND GENOMIC MEDICINE HCT 27.1 (L) 37.0 - 47.0 % [facility] DEPARTMENT OF PATHOLOGY AND GENOMIC MEDICINE MCV 99.3 82.0 - 100.0 fL [facility] DEPARTMENT OF PATHOLOGY AND GENOMIC MEDICINE MCH 30.8 27.0 - 34.0 pg [facility] DEPARTMENT OF PATHOLOGY AND GENOMIC MEDICINE MCHC 31.0 31.0 - 37.0 g/dL [facility] DEPARTMENT OF PATHOLOGY AND GENOMIC MEDICINE RDW - SD 65.3 (H) 37.0 - 55.0 fL [facility] DEPARTMENT OF PATHOLOGY AND GENOMIC MEDICINE MPV 11.2 8.8 - 13.2 fL [facility] DEPARTMENT OF PATHOLOGY AND GENOMIC MEDICINE Platelet count 151 150 - 400 k/uL [facility] DEPARTMENT OF PATHOLOGY AND GENOMIC MEDICINE Nucleated RBC 0.00 /100 WBC [facility] DEPARTMENT OF PATHOLOGY AND GENOMIC MEDICINE Neutrophils 44.2 39.0 - 69.0 % [facility] DEPARTMENT OF PATHOLOGY AND GENOMIC MEDICINE Lymphocytes 39.9 25.0 - 45.0 % [facility] DEPARTMENT OF PATHOLOGY AND GENOMIC MEDICINE Monocytes 13.8 (H) 0.0 - 10.0 % [facility] DEPARTMENT OF PATHOLOGY AND GENOMIC MEDICINE Eosinophils 1.2 0.0 - 5.0 % [facility] DEPARTMENT OF PATHOLOGY AND GENOMIC MEDICINE Basophils 0.2 0.0 - 1.0 % [facility] DEPARTMENT OF PATHOLOGY AND GENOMIC MEDICINE Immature granulocytes 0.7Comment: 0.0 - 1.0 % [facility] DEPARTMENT OF "Immature PATHOLOGY AND GENOMIC granulocytes" MEDICINE (promyelocytes, myelocytes, metamyelocytes) Specimen Blood Performing Organization Address City/[facility] Phone Number [facility] DEPARTMENT OF PATHOLOGY AND [address] [place] [address] [facility] Thyroid stimulating hormone (04/18/2018 5:00 AM CDT) TSH 2.00 0.27 - 4.20 uIU/mL [facility] DEPARTMENT OF PATHOLOGY AND GENOMIC MEDICINE Specimen Plasma specimen Performing Organization Address [facility] Phone Number [facility] DEPARTMENT OF PATHOLOGY AND [address] [place] [address] [facility] Urinalysis screen and microscopy, with reflex to culture (04/17/2018 9:16 PM CDT)Only the most recent of2 resultswithin the time period is included. Specimen site Clean catch [facility] DEPARTMENT OF PATHOLOGY AND GENOMIC MEDICINE Color, UA Straw [facility] DEPARTMENT OF PATHOLOGY AND GENOMIC MEDICINE Appearance, UA Clear [facility] DEPARTMENT OF PATHOLOGY AND GENOMIC MEDICINE Specific gravity, UA 1.006 1.001 - 1.035 [facility] DEPARTMENT OF PATHOLOGY AND GENOMIC MEDICINE pH, UA 6.0 5.0 - 8.5 [facility] DEPARTMENT OF PATHOLOGY AND GENOMIC MEDICINE Protein, UA Negative Negative [facility] DEPARTMENT OF PATHOLOGY AND GENOMIC MEDICINE Glucose, UA Negative Negative [facility] DEPARTMENT OF PATHOLOGY AND GENOMIC MEDICINE Ketones, UA Negative Negative [facility] DEPARTMENT OF PATHOLOGY AND GENOMIC MEDICINE Bilirubin, UA Negative Negative [facility] DEPARTMENT OF PATHOLOGY AND GENOMIC MEDICINE Blood, UA Negative Negative [facility] DEPARTMENT OF PATHOLOGY AND GENOMIC MEDICINE Nitrite, UA Negative Negative [facility] DEPARTMENT OF PATHOLOGY AND GENOMIC MEDICINE Urobilinogen, UA <2.0 <2.0 [facility] DEPARTMENT OF PATHOLOGY AND GENOMIC MEDICINE Leukocyte esterase, UA Negative Negative [facility] DEPARTMENT OF PATHOLOGY AND GENOMIC MEDICINE Epithelial cells, UA 5 /HPF [facility] DEPARTMENT OF PATHOLOGY AND GENOMIC MEDICINE WBC, UA 1 0 - 4 /HPF [facility] DEPARTMENT OF PATHOLOGY AND GENOMIC MEDICINE RBC, UA None seen 0 - 5 /HPF [facility] DEPARTMENT OF PATHOLOGY AND GENOMIC MEDICINE Bacteria, UA Few None seen [facility] DEPARTMENT OF PATHOLOGY AND GENOMIC MEDICINE Yeast, UA None seen [facility] DEPARTMENT OF PATHOLOGY AND GENOMIC MEDICINE Yeast with pseudohyphae, UA None seen [facility] DEPARTMENT OF PATHOLOGY AND GENOMIC MEDICINE Specimen Urine Performing Organization Address [facility]/Zipcode Phone Number [facility] DEPARTMENT OF PATHOLOGY AND [address] [place] [address] GENOMIC MEDICINE Urine culture (04/17/2018 9:16 PM CDT)Only the most recent of2 resultswithin the time period is included. Urine culture SEE COMMENTComment: Bacteriuria [facility] DEPARTMENT OF PATHOLOGY screen negative. AND GENOMIC MEDICINE Performing Organization Address [facility] Phone Number [facility] DEPARTMENT OF PATHOLOGY AND [address] [place] [address] GENOMIC MEDICINE [place] Lung Ventilation Perfusion (04/17/2018 [...] was then injected with 5 mCi of aumrbynzmr-26v-YWO intravenously, followed by imaging of the lungs [...] was then injected with 5 mCi of tlbbtsbhqg-31p-QUE intravenously, followed by imaging of the lungs in anterior, posterior, and oblique projections. FINDINGS: Small perfusion defect left upper lobe likely related to aortic arch. Mildly reduced perfusion and ventilation right upper lobe posteriorly. IMPRESSION: Low Probability for pulmonary embolism. [facility] Performing Organization Address [facility]/Zipcode Phone Number [facility] [address] [place] [address] XR Chest 1 Vw Portable (04/17/2018 5:11 PM CDT)Only the most recent of4 resultswithin the time period is included. Narrative Performed At EXAMINATION: Portable chest x-ray [facility] CLINICAL HISTORY:sob COMPARISON: Most recent [...] a trace of pleural fluid. 4.No pneumothorax. [id number] Procedure Note Hm Interface, Radiology Results Incoming [...] trace of pleural fluid. 4. No pneumothorax. [id number] Performing Organization Address City/State/Zipcode Phone Number [facility] [address] [place] [address] Comprehensive metabolic panel (04/17/2018 12:55 PM CDT)Only the most recent of4 resultswithin the time period is included. Sodium 140 135 - 148 mEq/L [facility] DEPARTMENT OF PATHOLOGY AND GENOMIC MEDICINE Potassium 3.3 (L) 3.5 - 5.0 mEq/L [facility] DEPARTMENT OF PATHOLOGY AND GENOMIC MEDICINE Chloride 101 98 - 112 mEq/L [facility] DEPARTMENT OF PATHOLOGY AND GENOMIC MEDICINE CO2 25 24 - 31 mEq/L [facility] DEPARTMENT OF PATHOLOGY AND GENOMIC MEDICINE Anion gap 14@ANIO 7 - 15 mEq/L [facility] DEPARTMENT OF PATHOLOGY AND GENOMIC MEDICINE BUN 7 6 - 20 mg/dL [facility] DEPARTMENT OF PATHOLOGY AND GENOMIC MEDICINE Creatinine 0.7 0.5 - 0.9 mg/dL [facility] DEPARTMENT OF PATHOLOGY AND GENOMIC MEDICINE Glucose 125 (H) 65 - 99 mg/dL [facility] DEPARTMENT OF PATHOLOGY AND GENOMIC MEDICINE Calcium 8.5 8.3 - 10.2 mg/dL [facility] DEPARTMENT OF PATHOLOGY AND GENOMIC MEDICINE Protein 6.9 6.3 - 8.3 g/dL [facility] DEPARTMENT OF Comment: PATHOLOGY AND GENOMIC 4.6-7.0 g/dL MEDICINE 1 week 4.4-7.6 g/dL 7 months-1year5.1-7.3 g/dL 1-2 years5.6-7.5 g/dL >3 years6.0-8.0 g/dL 18-150 6.3-8.3 g/dL Albumin 2.4 (L) 3.5 - 5.0 g/dL [facility] DEPARTMENT OF PATHOLOGY AND GENOMIC MEDICINE A/G ratio 0.5 (L) 0.7 - 3.8 [facility] DEPARTMENT OF PATHOLOGY AND GENOMIC MEDICINE Alkaline phosphatase 95 35 - 104 U/L [facility] DEPARTMENT OF PATHOLOGY AND GENOMIC MEDICINE AST 23 10 - 35 U/L [facility] DEPARTMENT OF PATHOLOGY AND GENOMIC MEDICINE ALT 32 5 - 50 U/L [facility] DEPARTMENT OF PATHOLOGY AND GENOMIC MEDICINE Total bilirubin <0.2 0.0 - 1.2 mg/dL [facility] DEPARTMENT OF PATHOLOGY AND GENOMIC [facility] Specimen Plasma specimen Performing Organization Address City/State/[facility] Phone Number [facility] DEPARTMENT OF PATHOLOGY AND [address] [place] [address] Hemoglobin A1c (04/15/2018 7:02 AM CDT)Only the most recent of2 resultswithin the time period is included. Hemoglobin A1C 5.5 4.0 - 5.6 % [facility] DEPARTMENT OF PATHOLOGY Comment: [facility] HbA1c cutoffs for diagnosing diabetes: 4.0% - 5.6%=normal 5.7% - 6.4%=increased risk for diabetes (prediabetes) >=6.5%=diabetes Goals for glycemic control (ADA 2016) < 7.0%Target for non adults with diabetes. More or less stringent targets may be appropriate for individual patients. <7.5% Target for Children and adolescents with type 1 diabetes. Specimen Blood Performing Organization Address City/State/Zipcode Phone Number [facility] DEPARTMENT OF PATHOLOGY AND [address] [place] [id number] [facility] Urinalysis, automated with microscopy (04/14/2018 8:30 PM CDT) Color, UA Straw [facility] DEPARTMENT OF PATHOLOGY AND GENOMIC MEDICINE Appearance, UA Clear [facility] DEPARTMENT OF PATHOLOGY AND GENOMIC MEDICINE Specific gravity, UA 1.006 1.001 - 1.035 [facility] DEPARTMENT OF PATHOLOGY AND GENOMIC MEDICINE pH, UA 6.0 5.0 - 8.5 [facility] DEPARTMENT OF PATHOLOGY AND GENOMIC MEDICINE Protein, UA Negative Negative [facility] DEPARTMENT OF PATHOLOGY AND GENOMIC MEDICINE Glucose, UA Negative Negative [facility] DEPARTMENT OF PATHOLOGY AND GENOMIC MEDICINE Ketones, UA Negative Negative [facility] DEPARTMENT OF PATHOLOGY AND GENOMIC MEDICINE Bilirubin, UA Negative Negative [facility] DEPARTMENT OF PATHOLOGY AND GENOMIC MEDICINE Blood, UA Negative Negative [facility] DEPARTMENT OF PATHOLOGY AND GENOMIC MEDICINE Nitrite, UA Negative Negative [facility] DEPARTMENT OF PATHOLOGY AND GENOMIC MEDICINE Urobilinogen, UA <2.0 <2.0 [facility] DEPARTMENT OF PATHOLOGY AND GENOMIC MEDICINE Leukocyte esterase, UA Negative Negative [facility] DEPARTMENT OF PATHOLOGY AND GENOMIC MEDICINE Epithelial cells, UA 6 /HPF [facility] DEPARTMENT OF PATHOLOGY AND GENOMIC MEDICINE WBC, UA None seen 0 - 4 /HPF [facility] DEPARTMENT OF PATHOLOGY AND GENOMIC MEDICINE RBC, UA None seen 0 - 5 /HPF [facility] DEPARTMENT OF PATHOLOGY AND GENOMIC MEDICINE Bacteria, UA None seen None seen [facility] DEPARTMENT OF PATHOLOGY AND GENOMIC MEDICINE Yeast, UA None seen [facility] DEPARTMENT OF PATHOLOGY AND GENOMIC MEDICINE Yeast with pseudohyphae, UA None seen [facility] DEPARTMENT OF PATHOLOGY AND GENOMIC MEDICINE Specimen Urine Performing Organization Address City/[facility] Phone Number [facility] DEPARTMENT OF PATHOLOGY AND [address] [place] [address] Prealbumin level (04/14/2018 7:45 PM CDT) Prealbumin 15 (L) 16 - 32 mg/dL [facility] DEPARTMENT OF PATHOLOGY AND GENOMIC MEDICINE Specimen Serum Performing Organization Address City/[facility] Phone Number [facility] DEPARTMENT OF PATHOLOGY AND [address] [place] [address] Phosphorus level (04/14/2018 7:45 PM CDT)Only the most recent of7 resultswithin the time period is included. Phosphorus 3.0 2.4 - 4.5 mg/dL [facility] DEPARTMENT OF PATHOLOGY AND GENOMIC MEDICINE Specimen Plasma specimen Performing Organization Address City/[facility] Phone Number [facility] DEPARTMENT OF PATHOLOGY AND [address] [place] [address] Magnesium level (04/14/2018 7:45 PM CDT)Only the most recent of12 resultswithin the time period is included. Magnesium 2.2 1.6 - 2.6 mg/dL [facility] DEPARTMENT OF PATHOLOGY AND GENOMIC MEDICINE Specimen Plasma specimen Performing Organization Address City/[facility] Phone Number [facility] DEPARTMENT OF PATHOLOGY AND [address] [place] [address] Potassium level (04/14/2018 8:22 AM CDT)Only the most recent of3 resultswithin the time period is included. Potassium 3.5 3.5 - 5.0 mEq/L [facility] DEPARTMENT OF PATHOLOGY AND GENOMIC MEDICINE Specimen Plasma specimen Performing Organization Address City/[facility] Phone Number [facility] DEPARTMENT OF PATHOLOGY AND [address] [place] [address] CBC hemogram (04/10/2018 3:25 AM CDT)Only the most recent of3 resultswithin the time period is included. WBC 5.93Comment: WBC was 4.50 - 11.00 k/uL [facility] DEPARTMENT OF corrected for NRBCs PATHOLOGY AND GENOMIC MEDICINE RBC 2.58 (L) 4.20 - 5.50 m/uL [facility] DEPARTMENT OF PATHOLOGY AND GENOMIC MEDICINE HGB 8.0 (L) 12.0 - 16.0 g/dL [facility] DEPARTMENT OF PATHOLOGY AND GENOMIC MEDICINE HCT 24.7 (L) 37.0 - 47.0 % [facility] DEPARTMENT OF PATHOLOGY AND GENOMIC MEDICINE MCV 95.7 82.0 - 100.0 fL [facility] DEPARTMENT OF PATHOLOGY AND GENOMIC MEDICINE MCH 31.0 27.0 - 34.0 pg [facility] DEPARTMENT OF PATHOLOGY AND GENOMIC MEDICINE MCHC 32.4 31.0 - 37.0 g/dL [facility] DEPARTMENT OF PATHOLOGY AND GENOMIC MEDICINE RDW - SD 60.1 (H) 37.0 - 55.0 fL [facility] DEPARTMENT OF PATHOLOGY AND GENOMIC MEDICINE MPV 11.1 8.8 - 13.2 fL [facility] DEPARTMENT OF PATHOLOGY AND GENOMIC MEDICINE Platelet count 147 (L) 150 - 400 k/uL [facility] DEPARTMENT OF PATHOLOGY AND GENOMIC MEDICINE Nucleated RBC 1.00 /100 WBC [facility] DEPARTMENT OF PATHOLOGY AND GENOMIC MEDICINE Performing Organization Address [facility] Phone Number [facility] DEPARTMENT OF PATHOLOGY AND [address] [place] [address] [employer] [facility] Vancomycin level, trough (04/09/2018 9:26 AM CDT) Vancomycin, trough 18.9 10.0 - 20.0 ug/mL [facility] DEPARTMENT OF Comment: PATHOLOGY AND GENOMIC Therapeutic Ranges: MEDICINE Peak 30.0 - 40.0 ug/mL Dkkgiv21.0 - 20.0 ug/mL Specimen Serum Performing Organization Address City/[facility] Phone Number [facility] DEPARTMENT OF PATHOLOGY AND [address] [place] [address] [facility] MEDICINE ECG 12 lead (04/08/2018 3:34 PM CDT)Only the most recent of4 resultswithin the time period is included. Ventricular rate 79 [facility]USE Atrial rate 79 [facility] IN interval 126 [facility] QRSD interval 82 [facility] M[facility] QT interval 500 [facility] QTC interval 573 [facility] P axis 1 20 [facility] QRS axis 1 34 [facility] MUSE T wave axis 25 [facility] MUSE EKG impression Normal sinus rhythm-Possible Inferior infarct (cited on or before 03-APR-2018)-Nonspecific T wave abnormality-Prolonged QT-Abnormal ECG-In automated comparison with ECG of 05-APR-2018 14:40,-QT has lm [facility] MUSE thened- Performing Organization Address [facility] Phone Number [facility] MUSE [address] [place] [address] Troponin (04/08/2018 3:04 PM CDT) Troponin <0.30 0.00 - 0.30 ng/mL [facility] DEPARTMENT OF PATHOLOGY Comment: AND GENOMIC MEDICINE 0.30 - 1.49 ng/mlMay indicate increased risk of acute coronary syndrome. >=1.5 ng/mlConsistent with acute myocardial infarction. The diagnostic value of a single normal or non-diagnostic result is questionable.Serial samples at 2-6 hour intervals are required to rule out acute myocardial injury. Specimen Plasma specimen Performing Organization Address City/State/Zipcode Phone Number [facility] DEPARTMENT OF PATHOLOGY AND [address] [place] [address] [facility] Vancomycin level, random (04/07/2018 5:07 PM CDT) Vancomycin, random 7.4 ug/mL [facility] DEPARTMENT OF PATHOLOGY AND GENOMIC MEDICINE Specimen Serum Performing Organization Address City/[facility]/Zipcode Phone Number [facility] DEPARTMENT OF PATHOLOGY AND [address] [place] [address] [facility] Ionized calcium (04/07/2018 5:12 AM CDT)Only the most recent of2 resultswithin the time period is included. pH 7.44 [facility] DEPARTMENT OF PATHOLOGY AND GENOMIC MEDICINE Ionized calcium 1.06 (L) 1.11 - 1.32 mmol/L [facility] DEPARTMENT OF PATHOLOGY AND GENOMIC MEDICINE Specimen Plasma specimen Performing Organization Address City/[facility] Phone Number [facility] DEPARTMENT OF PATHOLOGY AND [address] [place] [address] XR Picc Chest Portable (04/06/2018 11:18 AM CDT) Narrative Performed At EXAMINATION:XR PICC CHEST PORTABLE [facility] CLINICAL HISTORY:M41.9 Scoliosisunspecified, Multiple IV meds COMPARISON:Chest x-ray 04/05/2018 IMPRESSION: Single frontal view reveals interval placement of a left-sided PICC line with tip overlying the SVC. The remainder of the examination is unchanged. [facility]-[id number] Procedure Note Interface, Radiology Results Incoming - 04/06/2018 11:23 AM CDT EXAMINATION: XR PICC CHEST PORTABLE CLINICAL HISTORY: M41.9 Scoliosis unspecified, Multiple IV meds COMPARISON: Chest x-ray 04/05/2018 IMPRESSION: Single frontal view reveals interval placement of a left-sided PICC line with tip overlying the SVC. The remainder of the examination is unchanged. [facility]-[id number] Performing Organization Address [facility] Phone Number [facility] [address] [place] [address] PICC INSERTION (04/06/2018 10:34 AM CDT) Narrative Performed At Bere Salazar RN 04/06/2018 10:43 AM PICC insertion Date/Time: 04/06/2018 10:34 AM Performed by: ZEUS CHENG Authorized by: BRANDT THOMAS Consent: Consent obtained:Verbal Consent given by:Patient Risks discussed: arterial puncture, incorrect placement, nerve damage, infection, bleeding, deep vein thrombus and superficial thrombus Alternatives discussed:No treatment, alternative treatment, delayed treatment, observation and referral [place] protocol: Procedure explained and questions answered to [...] LDA): Patient position:Flat Vessel Size (mm):3 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 IV therapy Location:Left basilic Device Type:Non-valved Catheter size:5 Fr PICC Characteristics: Catheter Brand:CardKill picc External Catheter Length (cm):0 Internal Catheter Length (cm):44 Total Catheter Length (cm):44 Catheter Lot Number:[id number] Catheter Expiration Date:06/10/1920 Procedure Details: Landmarks identified: [...] name Apheresis Red Cell AS3 #1 LR [facility] DEPARTMENT OF PATHOLOGY AND GENOMIC MEDICINE Unit number [id number] [facility] DEPARTMENT OF PATHOLOGY AND GENOMIC MEDICINE Product code [id number] [facility] DEPARTMENT OF PATHOLOGY AND GENOMIC MEDICINE Dispense status Transfused [facility] DEPARTMENT OF PATHOLOGY AND GENOMIC MEDICINE Blood expiration date [id number] [facility] DEPARTMENT OF PATHOLOGY AND GENOMIC MEDICINE Blood type code 5100 [facility] DEPARTMENT OF PATHOLOGY AND GENOMIC MEDICINE Blood type O POSITIVE [facility] DEPARTMENT OF PATHOLOGY AND GENOMIC MEDICINE Performing Organization Address City/[facility]/Zipcode Phone Number [facility] DEPARTMENT OF PATHOLOGY AND [address] [place] [address] GENOMIC MEDICINE Type and screen (04/06/2018 6:40 AM CDT)Only the most recent of3 resultswithin the time period is included. ABO grouping O [facility] DEPARTMENT OF PATHOLOGY AND GENOMIC MEDICINE Rh type POS [facility] DEPARTMENT OF PATHOLOGY AND GENOMIC MEDICINE Antibody screen (gel) NEG [facility] DEPARTMENT OF PATHOLOGY AND GENOMIC MEDICINE Specimen Blood Performing Organization Address City/[facility]/Zipcode Phone Number [facility] DEPARTMENT OF PATHOLOGY AND [address] [place] [address] [facility] US Hepatic (04/05/2018 4:00 PM CDT) Narrative [...] given patient's history of cholecystectomy. No ascites. [id number] Procedure Note Interface, Radiology Results Incoming - [...] given patient's history of cholecystectomy. No ascites. [id number] Performing Organization Address [facility] Phone Number [facility] [address] [place] [address] XR Abdomen 1 Vw Portable (04/05/2018 12:38 [...] bowel loops is seen. IMPRESSION: As above [facility]-[id number] Procedure Note Hm Interface, Radiology Results Incoming - 04/05/2018 12:43 PM CDT EXAMINATION: XR ABDOMEN 1 VW PORTABLE CLINICAL HISTORY: Vomiting COMPARISON: None. FINDINGS: Extensive postoperative changes in the spine and hips. Stimulator device overlies the right lower quadrant. A catheter overlies the left flank. There is gas in the colon. No disproportionate dilatation of small bowel loops is seen. IMPRESSION: As above [facility]-[id number] Performing Organization Address [facility] Phone Number [facility] [address] [place] [address] Arterial blood gas (04/05/2018 10:20 AM CDT)Only the most recent of7 resultswithin the time period is included. pH, arterial 7.51 (H) 7.35 - 7.45 [facility] DEPARTMENT OF PATHOLOGY AND GENOMIC MEDICINE pCO2, arterial 31 (L) 35 - 45 mmHg [facility] DEPARTMENT OF PATHOLOGY AND GENOMIC MEDICINE pO2, arterial 163 (H) 80 - 90 mmHg [facility] DEPARTMENT OF PATHOLOGY AND GENOMIC MEDICINE Bicarbonate, arterial 24.3 21.0 - 28.0 mmol/L [facility] DEPARTMENT OF PATHOLOGY AND GENOMIC MEDICINE Base excess, arterial 2 -2 - 2 mEq/L [facility] DEPARTMENT OF PATHOLOGY AND GENOMIC MEDICINE O2 saturation, arterial 100 95 - 100 % [facility] DEPARTMENT OF PATHOLOGY AND GENOMIC MEDICINE Specimen Blood Performing Organization Address [facility] Phone Number [facility] DEPARTMENT OF PATHOLOGY AND [address] [place] [address] GENOMIC MEDICINE Us duplex venous lower extremity (04/05/2018 8:28 AM CDT) Narrative Performed At [facility] Vascular Ultrasound Laboratory Lower Extremity Venous Report [address] [facility] [address] [address] Pat.Name:MARINA MESSER.ID:[id number] .Date: 04/05/2018 Refer.MD:BRANDT THOMAS MD Exam Time: 8:02:00 AMStudy Type:LE Venous Height:67inWeight: 259lb BSA: 2.26 m2 DOBAge:1960,57Y Sex: FEMALESonogrphr: VALENTINE Agarwal, DIXON Pat. Stat.:Inpatient Room:[place] [address] TapeVol: SB, CPT - 4: 51341 Echo Event ID:[id number] Order ID:[id number] Reason for Study:Tachypnea, evaluate for DVT. S/p [...] Ultrasound Laboratory Lower Extremity Venous Report [address] [address] Pat.Name: MARINA MESSER Pat.ID: [id number] .Date: 04/05/2018 Refer.MD: BRANDT THOMAS MD Exam Time: 8:02:00 AM Study Type:LE Venous Height: 67in Weight: 259lb BSA: 2.26 m2 Age: 4 1960,57Y Sex: FEMALE Sonogrphr: VALENTINE Agarwal RCS Pat. Stat.:Inpatient Room: [address] Vol: SB, CPT - 4: 10520 Echo Event ID:[id number] Order ID: [id number] Reason for Study:Tachypnea, evaluate for DVT. S/p [...] Address City/State/Zipcode Phone Number [facility] [address] [place] [address] CT Angiogram Pe Chest (04/05/2018 4:52 AM [...] no acute abnormality identified in the chest. [facility]-[id number] Procedure Note Interface, Radiology Results Incoming - [...] no acute abnormality identified in the chest. [facility]-[id number] Performing Organization Address City/[facility]/Zipcode Phone Number [facility] [address] [place] [address] Blood culture, aerobic & anaerobic (04/05/2018 2:00 AM CDT)Only the most recent of2 resultswithin the time period is included. Blood culture isolate No growth after 5 days of incubation. [facility] DEPARTMENT OF Comment: PATHOLOGY AND GENOMIC Specimen Information MEDICINE Specimen Source: Blood Specimen Site: Antecubital Right Specimen Blood Performing Organization Address City/[facility] Phone Number [facility] DEPARTMENT OF PATHOLOGY AND [address] [place] [address] GENOMIC MEDICINE Manual differential (04/05/2018 12:10 AM CDT) Manual differential PERFORMED [facility] DEPARTMENT OF PATHOLOGY AND GENOMIC MEDICINE Neutrophils 57.0 39.0 - 69.0 % [facility] DEPARTMENT OF PATHOLOGY AND GENOMIC MEDICINE Lymphocytes 17.0 (L) 25.0 - 45.0 % [facility] DEPARTMENT OF PATHOLOGY AND GENOMIC MEDICINE Monocytes 26.0 (H) 0.0 - 10.0 % [facility] DEPARTMENT OF PATHOLOGY AND GENOMIC MEDICINE Eosinophils 0.0 0.0 - 5.0 % [facility] DEPARTMENT OF PATHOLOGY AND GENOMIC MEDICINE Basophils 0.0 0.0 - 1.0 % [facility] DEPARTMENT OF PATHOLOGY AND GENOMIC MEDICINE Metamyelocytes 0 % [facility] DEPARTMENT OF PATHOLOGY AND GENOMIC MEDICINE Promyelocytes 0 % [facility] DEPARTMENT OF PATHOLOGY AND GENOMIC MEDICINE Platelet slide review Katie slt decr [facility] DEPARTMENT OF PATHOLOGY AND GENOMIC MEDICINE Performing Organization Address City/[facility] Phone Number [facility] DEPARTMENT OF PATHOLOGY AND [address] [place] [address] GENOMIC MEDICINE Hemoglobin & hematocrit (04/04/2018 4:00 PM CDT) HGB 6.9 (LL) 12.0 - 16.0 g/dL [facility] DEPARTMENT OF PATHOLOGY Comment: AND GENOMIC MEDICINE HGB results called to and read back by [facility](name/location) at 04/04/201816:18 (date/time) by PC. HCT 20.4 (L) 37.0 - 47.0 % [facility] DEPARTMENT OF PATHOLOGY AND GENOMIC MEDICINE Specimen Blood Performing Organization Address City/State/Zipcode Phone Number [facility] DEPARTMENT OF PATHOLOGY AND [address] [place] [address] [facility] MEDICINE CT Head Wo Contrast (04/03/2018 9:08 [...] suggested if further evaluation is clinically indicated. [facility]-[id number] Procedure Note Interface, Radiology Results Incoming - [...] suggested if further evaluation is clinically indicated. [facility]-[id number] Performing Organization Address City/State/Zipcode Phone Number [address] [address] Sodium level, syringe (04/03/2018 5:05 PM CDT)Only the most recent of6 resultswithin the time period is included. Sodium, syringe 135 135 - 148 mEq/L [facility] DEPARTMENT OF PATHOLOGY AND GENOMIC MEDICINE Specimen Blood Performing Organization Address City/[facility] Phone Number [facility] DEPARTMENT OF PATHOLOGY AND [address] [place] [address] MEDICINE Potassium, syringe (04/03/2018 5:05 PM CDT)Only the most recent of6 resultswithin the time period is included. Potassium, syringe 3.8 3.5 - 5.0 mEq/L [facility] DEPARTMENT OF PATHOLOGY AND GENOMIC MEDICINE Specimen Blood Performing Organization Address City/[facility] Phone Number [facility] DEPARTMENT OF PATHOLOGY AND [address] [place] [address] MEDICINE Lactic acid, syringe (04/03/2018 5:05 PM CDT)Only the most recent of6 resultswithin the time period is included. Lactic acid, syringe 1.3 0.5 - 2.2 mmol/L [facility] DEPARTMENT OF PATHOLOGY AND GENOMIC MEDICINE Specimen Blood Performing Organization Address [facility]/Zipcode Phone Number [facility] DEPARTMENT OF PATHOLOGY AND [address] [place] [address] Ionized calcium, arterial (04/03/2018 5:05 PM CDT)Only the most recent of6 resultswithin the time period is included. Ionized calcium, 0.93 (L)Comment: 1.11 - 1.32 mmol/L [facility] DEPARTMENT OF arterial Specimen is slightly PATHOLOGY AND GENOMIC hemolyzed. Interpret MEDICINE results accordingly. Specimen Blood Performing Organization Address [facility] Phone Number [facility] DEPARTMENT OF PATHOLOGY AND [address] [place] [address] Hemoglobin, syringe (04/03/2018 5:05 PM CDT)Only the most recent of6 resultswithin the time period is included. Hemoglobin, syringe 9.2 (L) 12.0 - 16.0 g/dL [facility] DEPARTMENT OF PATHOLOGY AND GENOMIC MEDICINE Specimen Blood Performing Organization Address [facility] Phone Number [facility] DEPARTMENT OF PATHOLOGY AND [address] [place] [address] Glucose level, syringe (04/03/2018 5:05 PM CDT)Only the most recent of6 resultswithin the time period is included. Glucose, syringe 193 (H) 65 - 99 mg/dL [facility] DEPARTMENT OF PATHOLOGY [facility] GENOMIC MEDICINE Specimen Blood Performing Organization Address [facility] Phone Number [facility] DEPARTMENT OF PATHOLOGY AND [address] [place] [address] Arterial blood gas, corrected (04/03/2018 5:05 PM CDT)Only the most recent of6 resultswithin the time period is included. pH, arterial 7.35 7.35 - 7.45 [facility] DEPARTMENT OF PATHOLOGY AND GENOMIC MEDICINE pCO2, arterial 40 35 - 45 mmHg [facility] DEPARTMENT OF PATHOLOGY AND GENOMIC MEDICINE pO2, arterial 189 (H) 80 - 90 mmHg [facility] DEPARTMENT OF PATHOLOGY AND GENOMIC MEDICINE Temperature, Celsius 37.0 Degrees C [facility] DEPARTMENT OF PATHOLOGY AND GENOMIC MEDICINE O2 saturation, arterial 100 95 - 100 % [facility] DEPARTMENT OF PATHOLOGY AND GENOMIC MEDICINE pH, arterial corrected 7.35 [facility] DEPARTMENT OF PATHOLOGY AND GENOMIC MEDICINE pCO2, arterial corrected 40 mmHg [facility] DEPARTMENT OF PATHOLOGY AND GENOMIC MEDICINE pO2, arterial corrected 189 mmHg [facility] DEPARTMENT OF PATHOLOGY AND GENOMIC MEDICINE Base excess, arterial -4 (L) -2 - 2 mEq/L [facility] DEPARTMENT OF PATHOLOGY AND GENOMIC MEDICINE Specimen Blood Performing Organization Address [facility] Phone Number [facility] DEPARTMENT OF PATHOLOGY AND [address] [place] [address] MEDICINE [place] > I Hour (04/03/2018 4:41 PM CDT)Only the most recent of3 resultswithin the time period is included. Narrative Performed At EXAMINATION:OR [place] 1 HOUR [facility] C-arm fluoroscopy was requested in OR. Location: [facility] OR room#19 O-ARM Scans:4 Procedure:L2-L3, L4-L5 LATERAL INTERBODY FUSION W/ INSTRUMENTATION; T4-PELVIS POSTERIOR FUSION W/ INSTRUMENTATION Start:7:32pm End:4:41pm Fluoro Time:12.17sec Dose(mGy):157.22 Tech:QTN/MA Date:04/03/18 IMPRESSION: Separate operative report will be issued by the physician performing the procedure. [id number] Procedure Note Interface, Radiology Results Incoming - 04/03/2018 10:11 PM CDT EXAMINATION: OR [place] 1 HOUR C-arm fluoroscopy was requested in OR. Location: [facility] OR room#19 O-ARM Scans:4 Procedure:L2-L3, L4-L5 LATERAL INTERBODY FUSION W/ INSTRUMENTATION; T4-PELVIS POSTERIOR FUSION W/ INSTRUMENTATION Start:7:32pm End:4:41pm Fluoro Time:12.17sec Dose(mGy):157.22 Tech:QTN/MA Date:04/03/18 IMPRESSION: Separate operative report will be issued by the physician performing the procedure. [id number] Performing Organization Address City/State/Zipcode Phone Number [facility] [address] [place] [address] XR Lumbar Spine 1 Vw (04/03/2018 4:31 [...] lower thoracic spine for localization during surgery. [id number] Procedure Note Interface, Radiology Results Incoming - [...] lower thoracic spine for localization during surgery. [facility]-[id number] Performing Organization Address City/State/Zipcode Phone Number [facility] [address] [place] [address] XR Cervical Spine 1 Vw (04/03/2018 4:31 [...] upper thoracic spine for localization during surgery. [facility]-[id number] Procedure Note Interface, Radiology Results Incoming - [...] upper thoracic spine for localization during surgery. [facility]-[id number] Performing Organization Address [facility]/Zipcode Phone Number [facility] [address] [place] [address] Surgical pathology request (04/03/2018 7:41 AM CDT)Only the most recent of2 resultswithin the time period is included. [facility] DEPARTMENT OF PATHOLOGY AND GENOMIC MEDICINE Surgical pathology report See link below for PDF [facility] DEPARTMENT OF Lab Report PATHOLOGY AND GENOMIC MEDICINE Result status This is Final Report to [facility] DEPARTMENT OF [id number] PATHOLOGY AND GENOMIC MEDICINE Performing Organization Address [facility] Phone Number [facility] DEPARTMENT OF PATHOLOGY AND [address] [place] [address] [facility] Partial thromboplastin time, activated (04/03/2018 4:28 AM CDT)Only the most recent of3 resultswithin the time period is included. PTT 35.9 23.0 - 36.0 sec [facility] DEPARTMENT OF PATHOLOGY Comment: AND GENOMIC [facility] PTT therapeutic range for unfractionated heparin is 61.0-112.0 seconds which corresponds to Anti-Xa 0.3-0.7 U/ml. Specimen Blood Performing Organization Address [facility] Phone Number [facility] DEPARTMENT OF PATHOLOGY AND [address] [place] [address] Prothrombin time with INR (04/03/2018 4:28 AM CDT)Only the most recent of3 resultswithin the time period is included. Prothrombin time 13.8 12.0 - 15.0 sec [facility] DEPARTMENT OF PATHOLOGY AND GENOMIC MEDICINE INR 1.0 [facility] DEPARTMENT OF Comment: PATHOLOGY AND GENOMIC The International Normalized Ratio (INR) is a therapeutic MEDICINE monitoring tool for patients who are stable on oral anticoagulant therapy. An INR of 2.0-3.0 is suggested for deep vein thrombosis/pulmonary embolism. Specimen Blood Performing Organization Address [facility]/Zipcode Phone Number [facility] DEPARTMENT OF PATHOLOGY AND [address] [place] [address] Hemoglobin (04/02/2018 4:00 AM CDT) HGB 10.3 (L) 12.0 - 16.0 g/dL [facility] DEPARTMENT OF PATHOLOGY AND GENOMIC MEDICINE Specimen Blood Performing Organization Address City/[facility]/Zipcode Phone Number [facility] DEPARTMENT OF PATHOLOGY AND [address] [place] [address] [place] [address] [facility] CT Thoracic Spine Wo Contrast (03/31/2018 5:00 [...] the facet joints bilaterally at these levels. [facility]-[id number] Procedure Note Interface, Radiology Results [facility] - 03/31/2018 5:44 PM CDT Study: CT [...] the facet joints bilaterally at these levels. [facility]-[id number] Performing Organization Address City/State/Zipcode Phone Number [facility] [address] [place] [address] CT Lumbar Spine Wo Contrast (03/31/2018 4:59 [...] Expected postoperative changes. Degenerative changes as above. [facility]-[id number] Procedure Note Interface, Radiology Results Incoming - [...] Expected postoperative changes. Degenerative changes as above. [facility]-[id number] Performing Organization Address City/[facility]/Zipcode Phone Number [facility] [address] [place] [address] Lactic acid level (03/31/2018 3:00 PM CDT) Lactic acid 3.9 (HH) 0.5 - 2.2 mmol/L [facility] DEPARTMENT OF PATHOLOGY AND GENOMIC MEDICINE Specimen Blood Performing Organization Address City/State/Zipcode Phone Number [facility] DEPARTMENT OF PATHOLOGY AND [address] [place] [address] GENOMIC MEDICINE XR Chest 2 Vw (03/16/2018 5:24 PM CDT) Narrative Performed At Examination: [facility] Clinical history: Z01.818 Encounter for other preprocedural examination, PREOP Comparison: None Impression: 1. The heart and pulmonary vasculature are within normal limits. 2. No infiltrate or effusion is demonstrated. Right middle lobe linear atelectasis is likely chronic. 3. There is no acute osseous pathology. Thoracolumbar scoliosis distorts the mediastinal anatomy. CONCLUSION: NO RADIOGRAPHIC EVIDENCE OF ACUTE CARDIOPULMONARY ABNORMALITY. [facility]-[id number] Procedure Note Hm Interface, Radiology Results Incoming [...] NO RADIOGRAPHIC EVIDENCE OF ACUTE CARDIOPULMONARY ABNORMALITY. [facility]-[id number] Performing Organization Address City/[facility]/Zipcode Phone Number [facility] [address] [place] [address] Vitamin D 25 hydroxy level (03/16/2018 4:21 PM CDT) Vitamin D, 25-hydroxy 42.7 30.0 - 150.0 [facility] DEPARTMENT OF Comment: ng/mL PATHOLOGY AND [...] Blood Performing Organization Address City/State/Zipcode Phone Number [facility] DEPARTMENT OF PATHOLOGY AND [address] [place] [address] [employer] Parathyroid hormone (03/16/2018 4:21 PM CDT) PTH 55 15 - 65 pg/mL [facility] DEPARTMENT OF PATHOLOGY AND GENOMIC MEDICINE Specimen Blood Performing Organization Address City/[facility]/Zipcode Phone Number [facility] DEPARTMENT OF PATHOLOGY AND [address] [place] [address] [employer] Hepatic function panel (03/16/2018 4:21 PM CDT) Albumin 3.6 3.5 - 5.0 g/dL [facility] DEPARTMENT OF PATHOLOGY AND GENOMIC MEDICINE Total bilirubin <0.2 0.0 - 1.2 mg/dL [facility] DEPARTMENT OF PATHOLOGY AND GENOMIC MEDICINE Bilirubin direct <0.2 0.0 - 0.3 mg/dL [facility] DEPARTMENT OF PATHOLOGY AND GENOMIC MEDICINE Alkaline phosphatase 91 35 - 104 U/L [facility] DEPARTMENT OF PATHOLOGY AND GENOMIC MEDICINE Protein 7.8 6.3 - 8.3 g/dL [facility] DEPARTMENT OF Comment: PATHOLOGY AND GENOMIC [place] 4.6-7.0 g/dL MEDICINE 1 week 4.4-7.6 g/dL 7 months-1year5.1-7.3 g/dL 1-2 years5.6-7.5 g/dL >3 years6.0-8.0 g/dL 18-150 6.3-8.3 g/dL ALT 50 5 - 50 U/L [facility] DEPARTMENT OF PATHOLOGY AND GENOMIC MEDICINE AST 31 10 - 35 U/L [facility] DEPARTMENT OF PATHOLOGY AND GENOMIC MEDICINE Specimen Plasma specimen Performing Organization Address City/State/Zipcode Phone Number [facility] DEPARTMENT OF PATHOLOGY AND [address] [place] [address] [facility] Bone Density Peripheral (02/04/2018 5:25 PM CDT) Narrative Performed At EXAMINATION:BONE DENSITY PERIPHERAL [facility] CLINICAL HISTORY:M80.00XA Age-related osteoporosis with current pathological fracture COMPARISON:None. The results of this study expressed as bone mineral density (BMD) were as follows: Left Forearm (Radius 33%): BMD: 0.847 g/cm2 T-Score: -0.3 Z-Score: 0.3 Percent change: No prior exam. % Impression:Normal BMD. [facility]-[id number] A copy of this scans including a [...] No prior exam. % Impression: Normal BMD. [facility]-[id number] A copy of this scans including a [...] age. Performing Organization Address City/State/Zipcode Phone Number [facility] [address] [place] [address] Bone Density (02/04/2018 5:25 PM CDT) Narrative Performed At EXAMINATION:BONE DENSITY [facility] CLINICAL HISTORY:M80.00XA Age-related osteoporosis with current [...] effect of treatments on patient over time. [facility]-[id number] Procedure Note [facility], Radiology Results Incoming - 02/04/2018 5:52 [...] effect of treatments on patient over time. [facility]-[id number] Performing Organization Address City/State/Zipcode Phone Number [facility] [address] [place] [address] after 01/12/2018 Insurance Payer Benefit Plan / Group Subscriber ID Type Phone Address CHUNGARIELLE SAD[employer] OPEN ACCESS/NETWORK xxxxxxxxxxx O Advance Directives Patient has advance care planning documents on file. For more information, please contact:[facility] [id number] [place] [address]
--- OUTSIDE RECORDS SUMMARY | 2019-01-13 22:00 | XMS REPORT | Continuity of Care Document ---
:1960 Author Organization Interface Problems Problem Status Onset Classification Date Comments Source Date Reported BACK Active [facility] BACK / AQUA Active [facility] [address] [facility] ARTHROPATHY OF LUMBAR Active [facility] FACET JOINTS [address] [place] ARTHROPATHY OF LUMBAR Active [facility] FACET JOINT [address] [place] Bipolar 1 [...] Duration: 30 day, Stop date: 08/17/17 12:16:00 MAINTENANCE DATA ANALYST ketOROLAC 15 15 mg, 0.5 mL, Inactive [...] not exceed 4gm/day of acetaminophen. (Same as: [facility] 325/10) Saline Flush 10 ml, Route: No [...] Duration: 30 day, Stop date: 08/17/17 10:41:00 MAINTENANCE DATA ANALYST Hydromorphone 0.5 mg, 0.25 mL, No Longer [...] not exceed 4gm/day of acetaminophen. (Same as: [facility] 325/10) Lactated Ringers 1,000 mL, Rate: Inactive [...] not exceed 4gm/day of acetaminophen. (Same as: [facility] 325/10) Lactated Ringers 1,000 mL, Rate: No [...] not exceed 4gm/day of acetaminophen. (Same as: [facility] 325/10) Ondansetron 4 mg, 2 mL, No [...] Type Number For Provider Date Date Visit [facility] Day [id number] [facility] 03/28 03/29 [facility] Ortho Orthopedic and and Spine Spine [facility] [id number] [facility] 04/18 04/19 [facility] Ortho Orthopedic and and Spine Spine [facility] [id number] [facility] 06/06 06/07 [facility] Ortho Orthopedic and and Spine Spine [facility] [id number] [facility] 07/18 07/19 [facility] Ortho Orthopedic and and Spine Spine [facility] Procedures Procedure Code Date Perfomer Comments Source Injection [id number] 07/18/2017 Ortho and Spine Lumbar epidural [id number] 04/18/2017 Diagnostic/ther Ortho and block<sup>1</sup> apuetic Spine bilateral L2-L5 medial branch blocks Injection of facet [id number] 03/28/2017 Ortho and joint Spine Sling procedure of [id number] 09/22/20152012 procedure [facility] Ortho and bladder on bladder Spine neck<sup>2</sup> Sling procedure of [id number] 09/22/20152012 procedure Ortho and bladder on bladder Spine neck<sup>1</sup> Hip [id number] 09/22/2014 [id number] left Ortho and replacement<sup>3, hip repair Spine 4</sup> Hip [id number] 09/22/2014 [id number] left Ortho and replacement<sup>2, hip repair Spine 3</sup> Hip [id number] 09/22/2013 right [facility] Ortho and replacement<sup>5</ Spine sup> Hip [id number] 09/22/2013 right Ortho and replacement<sup>4</ Spine sup> Insertion of [id number] 09/22/2007 pain pump 2007 Ortho and infusion and 2014 Spine pump<sup>6</sup> Insertion of [id number] 09/22/2007 pain pump 2007 Ortho and infusion and 2014 Spine pump<sup>5</sup> Carpal tunnel [id number] 09/22/2005 Ortho and release Spine Tonsillectomy [id number] 09/22/1965 Ortho and Spine
[2019-01-13] MEDS ORDERED: NA CHLORIDE 0.9% 0 ML ONE (23:00)
[2019-01-13] MEDS ORDERED: IBUPROFEN 400 MG TAB ONE (23:00)
--- NOTE | 2019-01-13 23:47 | ER ---
Nurse's Notes [facility] Name: Karina Acosta Age: 58 yrs Sex: Female : 1960 Arrival Date: 01/13/2019 Time: 21:55 Bed 17 Private MD: Rafael Vega Diagnosis: Rash and other nonspecific skin eruption Presentation: 01/13 22:13 Presenting complaint: Patient states: I have leukemia and I have developed a rash and ed1 swelling so my doctor told me to come to the ER. Transition of care: patient was not received from another setting of care. Onset of symptoms was January 12, 2019. Risk Assessment: Do you want to hurt yourself or someone else? Patient reports no desire to harm self or others. Initial Sepsis Screen: Does the patient meet any 2 criteria? No. Patient's initial sepsis screen is negative. Does the patient have a suspected source of infection? No. Patient's initial sepsis screen is negative. Care prior to arrival: None. 22:13 Method Of Arrival: Wheelchair ed1 22:13 Acuity: CASTRO 3 ed1 Triage Assessment: 22:19 General: Appears uncomfortable, Behavior is calm, cooperative. Pain: Complains of pain ed1 in right hand, left hand, right arm, left arm, right leg and left leg Pain currently is 8 out of 10 on a pain scale. Historical: - Allergies: 22:19 PENICILLINS; ed1 - Home Meds: 22:19 metformin 1,000 mg Oral tab 1 tab 2 times per day [Active]; metoprolol succinate 100 mg ed1 oral Tb24 1 tab once daily [Active]; topiramate 50 mg oral tab 1 tab 2 times per day [Active]; Morphine Pain Pump [Active]; Trintelix 20 mg daily [Active]; Linzess 290 mcg oral cap 1 cap once daily [Active]; levofloxacin 500 mg Oral tab 1 tab once daily [Active]; valacyclovir 500 mg Oral tab [Active]; Noxafil 100 mg oral TbEC 3 tabs once daily [Active]; - PMHx: 22:19 Hypertension; Leukemia; Sweet Syndrome; ed1 - PSHx: 22:19 Tonsillectomy; Appendectomy; Hysterectomy; Cholecystectomy; Hernia repair; Carpal ed1 Tunnel Repair; Hip Repair; Hip Replacement; - Immunization history:: Adult Immunizations up to date. - Social history:: Smoking status: Patient/guardian denies using tobacco. - Ebola Screening: : Patient negative for fever greater than or equal to 101.5 degrees Fahrenheit, and additional compatible Ebola Virus Disease symptoms Patient denies exposure to infectious person Patient denies travel to an Ebola-affected area in the 21 days before illness onset No symptoms or risks identified at this time. - Family history:: not pertinent. - Hospitalizations: : No recent hospitalization is reported. Screenin:16 Abuse screen: Denies threats or abuse. Denies injuries from another. Nutritional cc3 screening: No deficits noted. Tuberculosis screening: No symptoms or risk factors identified. Fall Risk Ambulatory Aid- None/Bed Rest/Nurse Assist (0 pts). Gait- Normal/Bed Rest/Wheelchair (0 pts) Mental Status- Oriented to own ability (0 pts). Assessment: 22:16 General: Appears in no apparent distress. uncomfortable, Behavior is calm, cooperative, cc3 appropriate for age. Pain: Complains of pain in generalized body pains. Neuro: Level of Consciousness is awake, alert, obeys commands, Oriented to person, place, time, situation, Appropriate for age. Cardiovascular: Denies chest pain, Patient's skin is warm and dry. Respiratory: Airway is patent Respiratory effort is even, unlabored, Respiratory pattern is regular, symmetrical. GI: Abdomen is round non-distended. : No signs and/or symptoms were reported regarding the genitourinary system. EENT: No signs and/or symptoms were reported regarding the EENT system. Derm: Rash noted that is red, on bilateral upper and lower limbs. Musculoskeletal: Circulation, motion, and sensation intact. Range of motion: limited in right arm. 23:10 Reassessment: Patient appears in no apparent distress at this time. Patient and/or cc3 family updated on plan of care and expected duration. Pain level reassessed. Patient is alert, oriented x 3, equal unlabored respirations, skin warm/dry/pink. missed IV cannulations, informed charge nurse Fara and said she'll come to do a midline for the patient. Patient informed. Patient doesn't want to put the blood pressure cuff on any of her arms or legs because she said they're hurting. 23:25 Reassessment: Patient appears in no apparent distress at this time. Patient and/or cc3 family updated on plan of care and expected duration. Pain level reassessed. Patient is alert, oriented x 3, equal unlabored respirations, skin warm/dry/pink. Patient wants to leave AMA to go to [facility], Dr. Hathaway informed and he talked to the patient and her but still patient opted to go AMA though risks and consequences explained and signed the AMA form herself. Charge nurse Fara informed. 23:30 Reassessment: Patient appears in no apparent distress at this time. Patient and/or cc3 family updated on plan of care and expected duration. Pain level reassessed. Patient is alert, oriented x 3, equal unlabored respirations, skin warm/dry/pink. Patient left ER vitally stable by wheelchair escorted by her . Vital Signs: 22:19 BP 141 / 77; Pulse 108; Resp 20; Temp 99.7(O); Pulse Ox 96% on R/A; Weight 96.62 kg; ed1 Height 5 ft. 7 in. (170.18 cm); Pain 8/10; 22:19 Body Mass Index 33.36 (96.62 kg, 170.18 cm) ed1 ED Course: 21:55 Patient arrived in ED. am2 21:55 Rafael Vega MD is Private Physician. am2 22:13 Fiorella Abreu, DENIS is Primary Nurse. ed1 22:14 Triage completed. ed1 22:16 Patricia Hazel is Primary Nurse. cc3 22:16 Patient has correct armband on for positive identification. Bed in low position. Call cc3 light in reach. Side rails up X 1. awake overnight monitor on. Pulse ox on. NIBP on. 22:19 Arm band placed on Patient placed in an exam room, on a stretcher. ed1 22:25 Shen Hathaway MD is Attending Physician. rn 22:45 First set of blood cultures drawn. mt 22:49 Missed attempt(s): 22 gauge in left antecubital area. mt 23:06 Missed attempt(s): 22 gauge in left hand. cc3 23:10 Missed attempt(s): 22 gauge in right hand. by DENIS Elizondo. cc3 23:25 No provider procedures requiring assistance completed. Patient did not have IV access cc3 during this emergency room visit. Administered Medications: 22:50 Drug: Motrin 800 mg Route: PO; cc3 23:15 Follow up: Response: No adverse reaction cc3 23:41 Not Given (patient left AMA): NS 0.9% 1000 ml IV at 1000 ml once cc3 Outcome: 23:25 AMA AMA form signed cc3 23:25 Condition: stable 23:25 Instructed on follow up and referral plans. Demonstrated understanding of instructions. 23:54 Patient left the ED. cc3 Signatures: Shen Hathaway MD MD rn Riggs, Erika, RN RN ed1 Kinjal Portillo am2 Cecily Luciano mt, Charlene cc3 Corrections: (The following items were deleted from the chart) 01/14 00:30 01/13 23:10 Reassessment: Patient appears in no apparent distress at this time. Patient cc3 and/or family updated on plan of care and expected duration. Pain level reassessed. Patient is alert, oriented x 3, equal unlabored respirations, skin warm/dry/pink. missed IV cannulations, informed charge nurse Fara and said she'll come to do a midline for the patient. Patient informed. cc3
--- NOTE | 2019-01-13 23:47 | EDPHYS ---
Physician Documentation [facility] Name: Karina Acosta Age: 58 yrs Sex: Female : 1960 Arrival Date: 01/13/2019 Time: 21:55 Bed 17 Private MD: Rafael Vega ED Physician Shen Hathaway HPI: 01/13 23:26 This 58 yrs old Female presents to ER via Wheelchair with complaints of Rash, rn Leg Swelling, Knee Pain, Wrist Pain. 23:43 The patient's rash thought to be caused by an unknown cause. The rash is located on the rn body diffusely. The rash can be described as erythematous. Onset: The symptoms/episode began/occurred yesterday. Severity of symptoms: At their worst the symptoms were mild in the emergency department the symptoms are unchanged. The patient has not experienced similar symptoms in the past. Reports has leukemia and sweet syndrome, began with rash, painful, to arms/legs, is spreading, has muscle and joint aching. . Historical: - Allergies: 22:19 PENICILLINS; ed1 - Home Meds: 22:19 metformin 1,000 mg Oral tab 1 tab 2 times per day [Active]; metoprolol succinate 100 mg ed1 oral Tb24 1 tab once daily [Active]; topiramate 50 mg oral tab 1 tab 2 times per day [Active]; Morphine Pain Pump [Active]; Trintelix 20 mg daily [Active]; Linzess 290 mcg oral cap 1 cap once daily [Active]; levofloxacin 500 mg Oral tab 1 tab once daily [Active]; valacyclovir 500 mg Oral tab [Active]; Noxafil 100 mg oral TbEC 3 tabs once daily [Active]; - PMHx: 22:19 Hypertension; Leukemia; Sweet Syndrome; ed1 - PSHx: 22:19 Tonsillectomy; Appendectomy; Hysterectomy; Cholecystectomy; Hernia repair; Carpal ed1 Tunnel Repair; Hip Repair; Hip Replacement; - Immunization history:: Adult Immunizations up to date. - Social history:: Smoking status: Patient/guardian denies using tobacco. - Ebola Screening: : Patient negative for fever greater than or equal to 101.5 degrees Fahrenheit, and additional compatible Ebola Virus Disease symptoms Patient denies exposure to infectious person Patient denies travel to an Ebola-affected area in the 21 days before illness onset No symptoms or risks identified at this time. - Family history:: not pertinent. - Hospitalizations: : No recent hospitalization is reported. ROS: 23:43 Constitutional: + fever Eyes: Negative for injury, pain, redness, and discharge, Neck: rn Negative for injury, pain, and swelling, Cardiovascular: Negative for chest pain, palpitations, and edema, Respiratory: Negative for shortness of breath, cough, wheezing, and pleuritic chest pain, Abdomen/GI: Negative for abdominal pain, nausea, vomiting, diarrhea, and constipation, MS/Extremity: + knee/wrist/elbow aching, + rash to extremities. Skin: Negative for injury, rash, and discoloration, Neuro: Negative for headache, weakness, numbness, tingling, and seizure. Exam: 23:43 Constitutional: This is a well developed, well nourished patient who is awake, alert, rn and in no acute distress. Head/Face: Normocephalic, atraumatic. Eyes: Pupils equal round and reactive to light, extra-ocular motions intact. Lids and lashes normal. Conjunctiva and sclera are non-icteric and not injected. Cornea within normal limits. Periorbital areas with no swelling, redness, or edema. ENT: No oral rash Respiratory: No increased work of breathing, no retractions or nasal flaring. Skin: + erythematous nodular rash to all 4 extremities, tender, no vesicles, no bullae, no skin sloughing. MS/ Extremity: Pulses equal, no cyanosis. Neurovascular intact. Neuro: Awake and alert, GCS 15, oriented to person, place, time, and situation. Cranial nerves II-XII grossly intact. Motor strength 5/5 in all extremities. Sensory grossly intact. Vital Signs: 22:19 BP 141 / 77; Pulse 108; Resp 20; Temp 99.7(O); Pulse Ox 96% on R/A; Weight 96.62 kg; ed1 Height 5 ft. 7 in. (170.18 cm); Pain 8/10; 22:19 Body Mass Index 33.36 (96.62 kg, 170.18 cm) ed1 MDM: 22:25 Patient medically screened. rn 23:43 Differential diagnosis: cellulitis, sweet syndrome, chemo rash. Data reviewed: vital rn signs, nurses notes. Refusal of service: The patient/guardian displays adequate decision making capability and despite a detailed discussion of alternatives, benefits, risks, and consequences refuses: patient upset after nursing unable to successfully get blood/IV, wants to leave to go to [facility], signed out AMA.. 01/13 22:31 Order name: CBC with Diff rn 01/13 22:31 Order name: Blood Culture Adult (2) rn Administered Medications: 22:50 Drug: Motrin 800 mg Route: PO; cc3 23:15 Follow up: Response: No adverse reaction cc3 23:41 Not Given (patient left AMA): NS 0.9% 1000 ml IV at 1000 ml once cc3 Disposition: 01/13/19 23:46 Patient has left against medical advice. Impression: Rash and other nonspecific skin eruption. - Patients states they are going to Home. - Condition is Stable. - Discharge Instructions: Rash. Follow up: Private Physician; When: As needed; Reason: Recheck today's complaints, Re-evaluation by your physician. - Problem is new. - Symptoms have improved. Signatures: Dispatcher [employer] EDMS Shen Hathaway MD MD rn Riggs, Erika, RN RN ed1 Patricia Hazel cc3 Corrections: (The following items were deleted from the chart) 23:29 22:31 CBC with Automated Diff ordered. EDID EDMS 23:29 22:31 BASIC METABOLIC PANEL+C.LAB.BRZ ordered. EDID EDMS 23:29 22:31 Procalcitonin+C.LAB.BRZ ordered. EDID EDMS 23:41 22:31 IV Saline Lock ordered. rn cc3 23:54 23:46 01/13/2019 23:46 Patients has left against medical advice. Impression: Rash and cc3 other nonspecific skin eruption. Patient states they are going to Home. Condition is Stable. Follow up: Private Physician; When: As needed; Reason: Recheck today's complaints, Re-evaluation by your physician. Problem is new. Symptoms have improved. rn
== END 2019-01-13 23:54 | disposition left against medical advice (07) ==
LOC: ER 21:54
DX: R21 Rash and other nonspecific skin eruption (principal); I10 Essential (primary) hypertension; L98.2 Febrile neutrophilic dermatosis [Sweet]; Z88.0 Allergy status to penicillin; Z53.21 Procedure and treatment not carried out due to patient leaving prior to being seen by health care provider
CPT/HCPCS: 87040; 99284; J7030

== ENCOUNTER 2022-08-31 13:21 | Emergency (ER) | payer OTHER ==
--- OUTSIDE RECORDS SUMMARY | 2022-08-31 13:33 | XMS REPORT | Clinical Summary ---
:1960 Author Organization [facility] Address [address] [place] [address] Care Team Providers Name Role Phone Edilma Ennis MD Unavailable [phone] Kimmy England RN Unavailable Crystal Saldivar Unavailable Van Avitia MD Primary Care Provider Allergies Active Allergy Reactions Severity Noted Date Comments Penicillins Rash Low 12/17/2018 Medications Medication Sig Dispensed Refills Start Date End Date Status LORazepam (ATIVAN) 0.5 Take 1 tablet 30 tablet 0 02/21/2022 Active mg tabletIndications: (0.5 mg) by mouth Acute myeloblastic every 6 (six) leukemia not having hours as needed achieved remission, for anxiety. Status post stem cell transplant, Anxiety, not otherwise specified tiotropium (Spiriva Inhale 1 capsule 90 each 11 02/25/2022 Active with HandiHaler) 18 mcg (18 mcg) by mouth inhalation daily. capsuleIndications: Dyspnea, not otherwise specified, Simple chronic bronchitis Additional Information Patient not taking. Reason: No longer taking, Reported on 08/27/2022 voriconazole (VFEND) 200 mg Take 1 tablet (200 60 tablet 5 Active tabletIndications: Acute mg) by mouth twice myeloblastic leukemia not daily. having achieved remission, Status post stem cell transplant, Hdrzb-ntkavo-oltc disease, not otherwise specified ketorolac (TORADOL) 10 mg Take 1 tablet (10 mg) 30 tablet 1 Active tabletIndications: Headache by mouth every 12 (twelve) hours as needed for moderate pain (headache). promethazine (PHENERGAN) 12.5 Take 1 tablet (12.5 30 tablet 1 04/05/2022 Active mg tabletIndications: Headache mg) by mouth every 6 (six) hours as needed for nausea. levothyroxine (SYNTHROID, Take 1 tablet (25 90 tablet 1 2021 Active LEVOTHROID) 25 mcg mcg) by mouth daily. 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 having achieved remission, Status post stem cell transplant, Xfzov-tstqqd-arko disease, not otherwise specified topiramate (TOPAMAX) 200 mg Take 1 tablet (200 30 tablet 3 Active tabletIndications: Status post mg) by mouth at stem cell transplant bedtime. To prevent migraine fluticasone Inhale 1 puff by 1 Inhaler 6 04/05/2022 Active propionate-salmeterol (Advair mouth twice daily. Diskus) 500 mcg-50 mcg/inhalation diskus inhalerIndications: Chronic obstructive pulmonary disease with acute exacerbation gabapentin (NEURONTIN) 300 mg Take 2 capsules (600 180 capsule 3 04/05/2022 Active capsuleIndications: Acute mg) by mouth 3 myeloblastic leukemia not (three) times a day. 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 myeloblastic leukemia not having achieved remission, Status post stem cell transplant, Vcrem-aqvjfg-zxlx disease, not otherwise specified, Cellulitis, not otherwise specified SUMAtriptan (IMITREX) 50 mg Take 2 tablets (100 9 tablet 6 Active tabletIndications: Acute mg) by mouth once as myeloblastic leukemia not needed for migraine having achieved remission, (Not to exceed 2 Status post stem cell doses per day). transplant metoprolol succinate (TOPROL Take 1 tablet (100 90 tablet 2 Active XL) 100 mg 24 hr mg) by mouth daily tabletIndications: Stem cells for blood pressure. transplant status Hold if top number is less than 100 or heart rate is less than 60 Ventolin HFA 90 mcg/actuation Inhale 2 puffs by 6.7 g 2 Active inhalerIndications: Other form mouth every 6 (six) of dyspnea hours as needed for wheezing or shortness of breath. cholecalciferol, vitamin D3, Take 400 Units by 0 Active (VITAMIN D3) 5,000 units tab mouth daily. tablet tacrolimus (PROGRAF) 0.5 mg Take 2 capsules (1.0 150 capsule 5 05/28/2022 Active capsuleIndications: Acute mg) by mouth twice myeloblastic leukemia not daily having achieved remission, Status post stem cell transplant, Ufhce-uraksp-mikh disease, not otherwise specified Additional Information Patient taking differently: 2 mg oral Every 12 hours, Take 2 capsules (1.0 mg) by mouth twice daily, Reason: Other, Reported on 07/25/2022 ursodiol (ACTIGALL) 300 Take 1 capsule 270 capsule 5 2 Active mg capsuleIndications: (300 mg) by Acute myeloblastic mouth 3 (three) leukemia not having times a day. achieved remission, Status post stem cell transplant, Xjguz-bsntvi-eumn disease, not otherwise specified ezetimibe (ZETIA) 10 mg TAKE ONE (1) 0 07/09/2022 Active tablet TABLET(S) BY MOUTH ONCE A DAY. polyethylene glycol Take 17 g by 0 Active (GLYCOLAX) 17 gram/dose mouth twice powder daily. HYDROmorphone (DILAUDID) Take 2 mg by 0 05/21/2022 Active 2 mg tablet mouth every 4 (four) hours as needed. esomeprazole (NexIUM) 20 Take 20 mg by 0 Active MG capsule mouth. FLUoxetine (PROzac) 40 Take 40 mg by 0 05/31/2022 Active mg capsule mouth daily. traZODone (DESYREL) 50 TAKE ONE (1) TO 0 04/02/2022 Active mg tablet THREE (3) TABLET(S) BY MOUTH AT BEDTIME NEEDED. diclofenac sodium APPLY FOUR (4) 0 06/19/2022 Active (Voltaren) 1 % gel GRAM(S) TO AFFECTED AREA THREE TIMES DAILY NEEDED. DO NOT EXCEED 16 GRAMS DAILY. meloxicam (MOBIC) 7.5 mg Take 1 tablet 0 08/03/2022 Active tablet (7.5 mg) by mouth daily as needed. cyclobenzaprine Take 1 tablet 60 tablet 0 08/27/2022 Active (FLEXERIL) 10 mg (10 mg) by mouth tabletIndications: Acute 3 (three) times myeloblastic leukemia a day as needed not having achieved for muscle remission, Status post spasms. stem cell transplant unknown patient-supplied by intrathecal 0 Discontinued medication in sodium route 12/09 (Stop Taking at chloride 0.9% (PF) continuous. Discharge) intrathecal pump Morphine esomeprazole (NexIUM) 20 Take 20 mg by 0 0 Discontinued MG capsule mouth daily. 10/11 21 aluminum-magnesium Take 15 mL by 355 mL 0 03/08/2021 Discontinued hydroxide-simethicone mouth every 4 12/09 (Stop Taking at (MAALOX PLUS) 200 mg-200 (four) hours as Discharge) mg-20 mg/5 mL needed for suspensionIndications: heartburn. Abdominal pain levothyroxine Take 1 tablet 90 tablet 1 03/08/2021 03/2 D iscontinued (SYNTHROID, LEVOTHROID) (25 mcg) by 12/09 (Reorder) 25 mcg mouth daily. 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 Hold if top number is less than 100 or heart rate is less than 60 senna-docusate Take 2 tablets 120 tablet 2 03/08/2021 Discontinued (SENOKOT-S) 8.6 mg-50 mg by mouth twice 10/11 tabletIndications: Acute daily. 22 myeloblastic leukemia not having achieved remission oxyCODONE (ROXICODONE) Take 1 tablet 60 tablet 0 04/10/2021 Discontinued 10 mg immediate release (10 mg) by mouth 10/11 tabletIndications: every 6 (six) 22 Abdominal pain hours as needed for severe pain. dicyclomine (BENTYL) 10 Take 1 capsule 30 capsule 2 04/17/2021 05/ Discontinued mg capsuleIndications: (10 mg) by mouth 12/09 (Stop Taking at Acute myeloblastic every 6 (six) 22 Discharge) leukemia not having hours as needed achieved remission, (Cramps). Status post stem cell transplant, Colitis presumed infectious, Cramp valACYclovir (VALTREX) Take 1 tablet 30 tablet 5 04/17/2021 Discontinued 500 mg (500 mg) by 10/11 (Reorder ) tabletIndications: Acute mouth daily. 22 myeloblastic leukemia not having achieved remission, Status post stem cell transplant, Nxjkz-ocoktx-ghio disease, not otherwise specified, Cellulitis, not otherwise specified sulfamethoxazole-trimeth Take 1 tablet by 60 tablet 2 04/18/2009/22 Discontinued oprim (BACTRIM DS) 800 mouth 3 (three) (Reorder) mg-160 mg per times a week 22 tabletIndications: Acute Friday, myeloblastic leukemia Friday and not having achieved Friday. remission, Status post stem cell transplant, Ikcgx-gwezph-xcmh disease, not otherwise specified tacrolimus (PROGRAF) 0.5 Take 3 capsules 150 capsule 5 021 09/22 Discontinued mg capsuleIndications: (1.5 mg) by (Reorder) Acute myeloblastic mouth every 22 leukemia not having morning AND 2 achieved remission, capsules (1 mg) Status post stem cell every evening. transplant, Ujppk-uuhtds-kylj disease, not otherwise specified topiramate (TOPAMAX) 200 Take 1 tablet 30 tablet 3 06/04/202108/23 Discontinued mg tabletIndications: (200 mg) by 04/10 (Reorder) Status post stem cell mouth at 21 transplant bedtime. To prevent migraine SUMAtriptan (IMITREX) 50 Take 2 tablets 9 tablet 6 06/07/202103/22 Discontinued mg tabletIndications: (100 mg) by 02/08 (Reorder) Acute myeloblastic mouth once as 22 leukemia not having needed for achieved remission, migraine (Not to Status post stem cell exceed 2 doses transplant per day). gabapentin (NEURONTIN) Take 2 capsules 180 capsule 3 09/24 Discontinued 300 mg (600 mg) by 10/11 (Reorder ) capsuleIndications: mouth 3 (three) 22 Acute myeloblastic times a day. 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 achieved remission, Status post stem cell transplant, Slvch-ntahnw-rrru disease, not otherwise specified isavuconazonium Take 2 capsules 60 capsule 5 06/07/202108/22 Discontinued (Cresemba) 186 mg (372 mg) by 03/11 capsuleIndications: mouth daily. 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 ketorolac (TORADOL) 10 Take 1 tablet 30 tablet 1 06/29/2021 Discontinued mg tabletIndications: (10 mg) by mouth (Reorder) Headache every 12 22 (twelve) hours as needed for moderate pain (headache). 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 not otherwise specified Discard excess volume to administer 2 mL. Ventolin HFA 90 Inhale 2 puffs 6.7 g 2 08/03/202103/22 Discontinued mcg/actuation by mouth every 6 02/08 (Reorder) inhalerIndications: (six) hours as 22 Other form of dyspnea needed for wheezing or shortness of breath. predniSONE (DELTASONE) Take 3 tablets 90 tablet 2 08/07/202110/23 Discontinued 20 mg tabletIndications: (60 mg) by mouth 03/11 Acute myeloblastic daily. 21 leukemia not having achieved remission, Status post stem cell transplant, Qstib-ezpwps-muod disease, not otherwise specified voriconazole (VFEND) 200 Take 1 tablet 60 tablet 5 08/07/202109/22 Discontinued mg tabletIndications: (200 mg) by (Reorder) Acute myeloblastic mouth twice 22 leukemia not having daily. achieved remission, Status post stem cell transplant, Ffikk-bykwkg-qrob disease, not otherwise specified letermovir (Prevymis) Take 1 tablet 30 tablet 5 08/07/202108/22 Discontinued 480 mg (480 mg) by 03/11 tabletIndications: Acute mouth daily. 21 myeloblastic leukemia not having achieved remission, Status post stem cell transplant, Larme-pihipv-ijnu disease, not otherwise specified ruxolitinib (Jakafi) 5 Take 1 tablet (5 60 tablet 5 08/09/202109/23 Discontinued mg tabletIndications: mg) by mouth (Other ) Aeens-jubdnj-znaz twice daily. 22 disease, not otherwise specified letermovir (PREVYMIS) Take 1 tablet 30 tablet 5 08/09/202108/22 Discontinued 480 mg (480 mg) by 03/11 tabletIndications: Acute mouth daily. 21 myeloblastic leukemia not having achieved remission, Status post stem cell transplant, Xslcg-rtsgli-uwom disease, not otherwise specified, Cytomegalovirus infection dexamethasone (DECADRON) Swish and spit 5 500 mL 0 08/22/20 Discontinued 0.5 mg/5 mL mL 3 (three) 03/11 mouthwashIndications: times a day for 22 Ejclo-hkktno-kmsh 1 week. Use as disease, not otherwise needed up to 3 specified times daily thereafter. Do not eat food or drink 30 minutes after use. predniSONE (DELTASONE) Take 1 tablet 90 tablet 2 09/06/2021 Discontinued 20 mg tabletIndications: (20 mg) by mouth 03/11 (Reorder) Acute myeloblastic daily. 22 leukemia not having achieved remission, Status post stem cell transplant, Lryvb-luxslw-cwhs disease, not otherwise specified topiramate (TOPAMAX) 200 Take 1 tablet 30 tablet 3 09/17/202110/23 Discontinued mg tabletIndications: (200 mg) by 10/11 (Reorder) Status post stem cell mouth at 22 transplant bedtime. To prevent migraine budesonide-formoterol Inhale 2 puffs 10.2 g 6 09/24/2021 Discontinued (Symbicort) 160-4.5 by mouth twice 03/11 mcg/actuation daily. 22 inhalerIndications: Dyspnea, not otherwise specified fluticasone Inhale 1 puff by 1 Inhaler 6 09/25/2021 Discontinued propionate-salmeterol mouth twice 12/09 (Reorder) (Advair Diskus) 500 daily. 22 mcg-50 mcg/inhalation diskus inhalerIndications: Chronic obstructive pulmonary disease with acute exacerbation predniSONE (DELTASONE) Take a HALF 15 tablet 2 09/27/2021 Discontinued 20 mg tabletIndications: tablet (10 mg) 10/11 (Reorder) Acute myeloblastic by mouth daily. 22 leukemia not having achieved remission, Status post stem cell transplant, Daxcf-dhedld-wxkt disease, not otherwise specified sulfamethoxazole-trimeth Take 1 tablet by 60 tablet 2 10/01/19 22 10/23 Discontinued oprim (BACTRIM DS) 800 mouth 3 (three) (Reorder) mg-160 mg per times a week 22 tabletIndications: Acute Friday, myeloblastic leukemia Friday and not having achieved Friday. remission, Status post stem cell transplant, Zwnmi-rlshph-ilxf disease, not otherwise specified voriconazole (VFEND) 200 Take 1 tablet 60 tablet 5 10/01/202110/23 Discontinued mg tabletIndications: (200 mg) by 01/09 Acute myeloblastic mouth twice 22 leukemia not having daily. achieved remission, Status post stem cell transplant, Wtgtn-eudcnc-zsuu disease, not otherwise specified tacrolimus (PROGRAF) 0.5 Take 3 capsules 150 capsule 5 022 10/23 Discontinued mg capsuleIndications: (1.5 mg) by 10/11 (Reorder) Acute myeloblastic mouth twice 22 leukemia not having daily achieved remission, Status post stem cell transplant, Qvfbz-dvgjed-qxki disease, not otherwise specified ruxolitinib (Jakafi) 5 Take 2 tablets 60 tablet 5 10/11/2021 0 Discontinued mg tabletIndications: (10 mg) by mouth (Other ) Acute myeloblastic twice daily. 22 leukemia not having achieved remission, Status post stem cell transplant gabapentin (NEURONTIN) Take 2 capsules 180 capsule 3 2 03/22 Discontinued 300 mg (600 mg) by 02/08 (Reorder ) capsuleIndications: mouth 3 (three) 22 Acute myeloblastic times a day. 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 promethazine (PHENERGAN) Take 1 tablet 30 tablet 1 10/22/202102/21 Discontinued 12.5 mg (12.5 mg) by (Reorde r) tabletIndications: mouth every 6 22 Headache (six) hours as needed for nausea. valACYclovir (VALTREX) Take 1 tablet 30 tablet 5 10/22/2021 Discontinued 500 mg (500 mg) by 02/08 (Reorder ) tabletIndications: Acute mouth daily. 22 myeloblastic leukemia not having achieved remission, Status post stem cell transplant, Oxroo-gbdwqp-jidx disease, not otherwise specified, Cellulitis, not otherwise specified ruxolitinib (Jakafi) 10 Take 1 tablet 60 tablet 5 10/23/2021 0 2/0 Discontinued mg tabletIndications: (10 mg) by mouth 7 (Other ) Acute myeloblastic twice daily. 22 leukemia not having achieved remission, Status post stem cell transplant predniSONE (DELTASONE) 5 Take 1 tablet (5 30 tablet 3 10/23/19 22 10/24 Discontinued mg tabletIndications: mg) by mouth 2/20 Acute myeloblastic daily. 22 leukemia not having achieved remission, Status post stem cell transplant, Dratg-aqviwk-sjqw disease, not otherwise specified fluticasone Inhale 1 puff by 1 Inhaler 6 10/25/202103/22 Discontinued propionate-salmeterol mouth twice 02/08 (Reorder) (Advair Diskus) 500 daily. 22 mcg-50 mcg/inhalation diskus inhalerIndications: Chronic obstructive pulmonary disease with acute exacerbation ruxolitinib (Jakafi) 10 Take 1 tablet 60 tablet 5 10/29/2021 1 00 Discontinued mg tabletIndications: (10 mg) by mouth (Other ) Acute myeloblastic twice daily. 22 leukemia not having achieved remission, Status post stem cell transplant tacrolimus (PROGRAF) 0.5 Take 3 capsules 150 capsule 5 022 10/24 Discontinued mg capsuleIndications: (1.5 mg) by 11/11 Acute myeloblastic mouth twice 22 leukemia not having daily achieved remission, Status post stem cell transplant, Xjexl-frmzjm-ftyb disease, not otherwise specified topiramate (TOPAMAX) 200 Take 1 tablet 30 tablet 3 11/02/202103/22 Discontinued mg tabletIndications: (200 mg) by 02/08 (Reorder) Status post stem cell mouth at transplant bedtime. To prevent migraine sulfamethoxazole-trimeth Take 1 tablet by 60 tablet 2 11/05/1903/22 Discontinued oprim (BACTRIM DS) 800 mouth 3 (three) (Reorder) mg-160 mg per times a week tabletIndications: Acute Friday, myeloblastic leukemia Friday and not having achieved Friday. remission, Status post stem cell transplant, Qhigh-gcksfn-hpxo disease, not otherwise specified voriconazole (VFEND) 200 Take 1 tablet 60 tablet 5 11/05/202103/22 Discontinued mg tabletIndications: (200 mg) by 01/09 (Reorder) Acute myeloblastic mouth twice leukemia not having daily. 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 triamcinolone (KENALOG) Apply topically 80 g 5 11/08/2021 06/ Discontinued ointment to affected 11/11 0.1%Indications: Graft area(s) twice 22 versus host disease daily. predniSONE (DELTASONE) 5 Take 1 tablet (5 30 tablet 3 11/13/19 22 11/21 Discontinued mg tabletIndications: mg) by mouth 01/09 (Therapy Acute myeloblastic every other day. 22 completed) leukemia not having For 2 weeks, achieved remission, then STOP Status post stem cell transplant, Jmsck-uvtifb-oxan disease, not otherwise specified tacrolimus (PROGRAF) 0.5 Take 4 capsules 150 capsule 5 022 11/21 Discontinued mg capsuleIndications: (2.0 mg) by 01/09 Acute myeloblastic mouth twice 22 leukemia not having daily achieved remission, Status post stem cell transplant, Utmwh-venfqp-igrn disease, not otherwise specified levothyroxine Take 1 tablet 90 tablet 1 12/12/202103/22 D iscontinued (SYNTHROID, LEVOTHROID) (25 mcg) by 02/08 (Reorder) 25 mcg mouth daily. 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, Status post stem cell transplant tacrolimus (PROGRAF) 0.5 Take 4 capsules 150 capsule 5 022 12/22 Discontinued mg capsuleIndications: (2.0 mg) by 05/11 (Error) Acute myeloblastic mouth twice 22 leukemia not having daily achieved remission, Status post stem cell transplant, Djkmf-dibrsb-menw disease, not otherwise specified tacrolimus (PROGRAF) 0.5 Take 4 capsules 150 capsule 5 03/22 Discontinued mg capsuleIndications: (2.0 mg) by 01/09 (Reorder) Acute myeloblastic mouth twice 22 leukemia not having daily achieved remission, Status post stem cell transplant, Vyhfd-azgyfy-myvb disease, not otherwise specified ciprofloxacin HCl Take 1 tablet 24 tablet 0 01/21/202201/20 (CIPRO) 750 mg (750 mg) by 02/08 tabletIndications: mouth every 12 Sepsis due to (twelve) hours Pseudomonas for 12 days. potassium chloride Take 1 tablet 4 tablet 0 02/21/202202/21 Discontinued (Klor-Con M20) 20 mEq (20 mEq) by 12/09 tabletIndications: mouth daily. For 22 Status post stem cell 4 days transplant ketorolac (TORADOL) 10 Take 1 tablet 30 tablet 1 03/12/2022 Discontinued mg tabletIndications: (10 mg) by mouth (Reorder) Headache every 12 22 (twelve) hours as needed for moderate pain (headache). promethazine (PHENERGAN) Take 1 tablet 30 tablet 1 03/12/202203/22 Discontinued 12.5 mg (12.5 mg) by 02/08 (Reorde r) tabletIndications: mouth every 6 22 Headache (six) hours as needed for nausea. predniSONE (DELTASONE) Take 1 tablet 30 tablet 0 03/14/2022 Discontinued 10 mg tabletIndications: (10 mg) by mouth 10/11 Acute myeloblastic daily. Take 10 22 leukemia not having mg po daily x 2 achieved remission, weeks then 5 mg Status post stem cell po daily transplant, Kqzed-fyffak-qwrg disease, not otherwise specified levoFLOXacin (LEVAQUIN) Take 1 tablet 7 tablet 0 03/14/2022 0 Discontinued 500 mg (500 mg) by 03/11 tabletIndications: Acute mouth daily. 22 myeloblastic leukemia not having achieved remission, Status post stem cell transplant, Sore throat, not otherwise specified tacrolimus (PROGRAF) 0.5 Take 4 capsules 150 capsule 5 022 03/22 Discontinued mg capsuleIndications: (2.0 mg) by 02/08 (Reorder) Acute myeloblastic mouth twice 22 leukemia not having daily achieved remission, Status post stem cell transplant, Qtocx-bwkthr-yziu disease, not otherwise specified voriconazole (VFEND) 200 Take 1 tablet 60 tablet 5 04/04/202203/22 Discontinued mg tabletIndications: (200 mg) by 02/08 (Reorder) Acute myeloblastic mouth twice 22 leukemia not having daily. achieved remission, Status post stem cell transplant, Myzlw-avyqth-dezy disease, not otherwise specified tacrolimus (PROGRAF) 0.5 Take 4 capsules 150 capsule 5 Discontinued mg capsuleIndications: (2.0 mg) by 03/11 Acute myeloblastic mouth twice 22 leukemia not having daily achieved remission, Status post stem cell transplant, Hnjjt-veawbo-lgsd disease, not otherwise specified calcium Take 1 tablet by 0 06/23 Dis continued carbonate-vitamin D3 500 mouth daily. (Not Applicable) mg - 200 units (1,250 mg 22 calcium carbonate) tablet magnesium oxide (MAOX) Take 1 tablet 0 07/23 Discontinued 400 mg tablet (400 mg) by 04/10 mouth daily. 22 ruxolitinib (Jakafi) 10 Take 1 tablet 60 tablet 3 06/25/2022 1 09/22 Discontinued mg tabletIndications: (10 mg) by mouth 7 /20 (Therapy bclhi-tlmvbl-aydb twice daily. 22 completed) disease Active Problems Problem Noted Date Chronic obstructive pulmonary disease 06/04/2022 Last Assessment & Plan: Formatting of th is note might be different from the original. Patient reports unchanged dyspnea report s she is quite sedentary at home. Recommend that she initiate a home exercise regimen as she is unable to participate in pulmonary rehab. Recommend she continue t o use Advair and Spiriva inhaled therapi es. Her FEV1 and total lung capacity are improved on PFTs. Recommend follow-up in 6 months with PFTs. Hoarseness 05/29/2022 Gram-negative sepsis 01/19/2022 Central line associated bloodstream infection 01/20/20 22 Supraventricular tachycardia 07/17/2021 Last Assessment & Plan: Formatting of th is note might be different from the original. Patient has a history of supraventricula r tachycardia for which she wore a 30- day event monitor in May that Dr. Tima Wise reviewed showing no significant arrhythmias during that time she had it on. Continue metoprolol XL 100 mg daily Nausea 04/27/2020 Overview: Added automatically from request for real anup [id number] Loose stool 04/27/2020 Overview: Added automatically from request for real anup [id number] Ikzua-ueweco-uxwk disease 04/27/2020 Overview: Added automatically from request for real anup [id number] Hypokalemia 10/14/2019 Hypomagnesemia 10/14/2019 Abdominal pain 09/14/2019 Overview: Added automatically from request for real anup [id number] Physical deconditioning 09/10/2019 Difficulty in walking 09/10/2019 Impairment of balance 09/10/2019 Generalized muscle weakness 08/18/2019 Patient immunocompromised 08/04/2019 Cytomegalovirus serostatus positive 07/27/2019 Pain due to neoplastic disease 07/19/2019 Status post stem cell transplant 07/06/2019 Myelodysplastic syndrome 06/16/2019 Encounter for antineoplastic chemotherapy 06/16/2019 Rash 01/20/2019 Febrile neutrophilic dermatosis (Sweet) 01/14/2019 Pain in right knee 01/14/2019 Cellulitis of right lower limb 01/14/2019 Weakness 01/14/2019 Other disorders of electrolyte and fluid balance, not elsewhere classified 01/14/2019 High grade myelodysplastic syndrome lesions 12/22/2018 Tumor lysis syndrome 12/18/2018 Anemia in neoplastic disease 12/18/2018 Other secondary thrombocytopenia 12/18/2018 Bipolar disorder 12/18/2018 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 Painful mouth Pain in right arm Inguinal pain Headache Nausea and vomiting Chronic pain Encounters Date Type Specialty Care Team Description 08/27/2022 Follow-Up Stem Cell Van Avitia, 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; Transplant MD Status post [facility] m cell transplant 08/27/2022 Ancillary Procedure Radiology Renetta Carvalho Pelvic pain CHARLEY Finn 08/27/2022 Hospital Encounter Lab Van Avitia, 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; MD Status post [facility] m cell transplant 08/27/2022 Documentation Leukemia FacciHanna castrejon A 08/27/2022 Travel 08/08/2022 Follow-Up Stem Cell Van Avitia, Pelvic pain (Primary Dx); Transplant MD Acute myeloblas tic leukemia not having achieved remission; Status post [facility] m cell transplant 08/08/2022 Hospital Encounter Lab Van Avitia, 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; MD Status post [facility] m cell transplant 07/16/2022 Hospital Encounter Vascular Access Van Avitia, and Procedures Melissa Cosby, RN 07/16/2022 Office Visit Stem Cell Van Avitia, 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; Transplant MD Status post [facility] m cell transplant 07/16/2022 Hospital Encounter Lab Van Avitia, 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; MD Status post [facility] m cell transplant 07/16/2022 Hospital Encounter Stem Cell Deena Núñez Chron ic Transplant M, PARLOR CHAPERONE yrrjr-qradtj-xb st disease 07/16/2022 Orders Only Pheresis Deena Núñez Chronic M, PARLOR CHAPERONE vbntw-trxdzb-wc st disease (Primar y Dx) 07/16/2022 Travel 07/11/2022 Hospital Encounter Speech Pathology Naldo Taylor, Ho renae CARRIER LOADER Allyson Johnson, PhD 07/11/2022 Hospital Encounter Head and Neck Adriano Millan MD Acut e myeloblastic leukemia not having achieved remission; Surgery Status post [facility] m cell transplant 07/11/2022 Travel 07/05/2022 Refill Stem Cell Rosanne Castro, Acute myelob lastic leukemia not having achieved remission; 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 Status post [facility] m cell transplant; Ufpen-czrelv-lx st disease, not otherwise specified 06/27/2022 Documentation Leukemia FacHanna sainz A 06/26/2022 Telemedicine Cardiology Daniel Ibarraventricjovita r CHARLEY Medeiros tachycardia Radhames Cruz PA 06/25/2022 Orders Only Infusion Services Latoya Reed Acute my eloblastic leukemia not having achieved remission; MMyra, RP Status post [facility] m cell transplant 06/24/2022 Refill Stem Cell Lyndsay Patten, Acute myelob lastic leukemia not having achieved remission; Transplant PA Status post [facility] m cell transplant 06/21/2022 Documentation Cardiology Tima Wise MD 06/20/2022 Hospital Encounter Cardiology Fred Supravent ricular CHARLEY Medeiros tachycardia 06/20/2022 Telephone Cardiology Mala Ibarra APN 06/20/2022 Travel 06/13/2022 Telephone Head and Neck Mary Navarrete, Surgery RN 06/12/2022 Refill Bone Marrow Michelle, Acute myeloblas tic leukemia not having achieved remission; CRISTINO Quinonez Status post stem cell transplant; Yxubq-utkzvc-xe st disease, not otherwise specified 05/30/2022 Office Visit Pulmonology Canelo Alexandre, Dyspnea, no t otherwise specified; Simple chronic bronchitis; Oyekanmi, High grade myel odysplastic syndrome lesions; Johanna, PARLOR CHAPERONE Chronic graft-v ersus-host disease; Chronic obstruc tive pulmonary disease, not otherwise specified 05/30/2022 Office Visit Dermatology Keith Norman MD Melanocytic nevus of trunk (Primary Dx); Graft versus ho st disease; Lentigo 05/30/2022 Hospital Encounter Pulmonology Canelo Alexandre, Dyspn ea, not otherwise specified; Simple chronic bronchitis; High grade myel odysplastic syndrome lesions; Chronic graft-v ersus-host disease 05/30/2022 Travel 05/29/2022 Orders Only Head and Neck Naldo Taylor, Hoarseness (Primary Surgery CARRIER LOADER Dx) 05/28/2022 Office Visit Stem Cell Van Avitia, 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; Transplant MD Status post [facility]; Gjpko-wfttgw-ri st disease, not otherwise specified 05/28/2022 Hospital Encounter Lab Van Avitia, 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; Status post [facility] cell transplant 05/28/2022 Travel 05/23/2022 Hospital Encounter Cardiology Fred, Supravent ricular CHARLEY Medeiros tachycardia 05/23/2022 Follow-Up Cardiology Godwin ColeyricCRISTINO Velázquez tachycardia (Primary [place], Dx) CHARLEY Medeiros 05/23/2022 Travel 04/29/2022 Documentation Leukemia FacciolliHanna A 04/05/2022 Refill Stem Cell Rosanne Castro, Headache; 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 Abdominal pain; Stem cells feliciano splant status; Acute myeloblas tic leukemia not having achieved remission; Acute myeloblas tic leukemia not having achieved remission; Status post [facility] cell transplant; Pxxzy-kqhrbk-sh st disease, not otherwise specified; Chronic obstruc tive pulmonary disease with acute exacerbation; Cellulitis, not otherwise specified; Other form of d yspnea 04/05/2022 Orders Only Bone Marrow Michelle, Acute myeloblas tic leukemia not having achieved remission; Kinjal Nugent PA Status post stem cell transplant; Beoma-jgsuyz-it st disease, not otherwise specified 04/04/2022 Refill Stem Cell Rosanne Castro, Acute myelob lastic leukemia not having achieved remission; 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 Status post [facility] cell transplant; Sstwo-scvaov-ac st disease, not otherwise specified 04/04/2022 Refill Stem Cell Rosanne Castro, 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 03/14/2022 Office Visit Stem Cell Sadi Van F., Sore throat , not otherwise specified (Primary Dx); Transplant MD Acute myeloblas tic leukemia not having achieved remission; Status post [facility] cell transplant; Oxyzu-uxftcj-oq st disease, not otherwise specified 03/14/2022 Hospital Encounter Lab Lyndsay Patten, 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; PA Status post [facility] cell transplant; Ueuol-oatqpp-qn st disease, not otherwise specified 03/14/2022 Travel 03/11/2022 Refill Stem Cell Lyndsay Patten, Headache Transplant PA 02/22/2022 Documentation Leukemia FacciHanna castrejon A 02/21/2022 Office Visit Stem Cell Sadi Van F., Anxiety, no t otherwise specified (Primary Dx); Transplant MD Acute myeloblas tic leukemia not having achieved remission; Status post [facility] transplant; Bfmkv-qpmdlr-vt st disease, not otherwise specified 02/21/2022 Office Visit Pulmonology Canelo Alexandre, 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 (Primary Dx); Dyspnea, not ot herwise specified; High grade myel odysplastic syndrome lesions; Chronic graft-v ersus-host disease 02/21/2022 Hospital Encounter Pulmonology Marlen Little, PARLOR CHAPERONE Dyspn ea, not otherwise specified 02/21/2022 Hospital Encounter Lab Lyndsay Patten, 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; PA Status post [facility] transplant; Stynd-uaerwv-kq st disease, not otherwise specified 02/21/2022 Orders Only Stem Cell Lyndsay Patten, Status post stem cell Transplant PA transplant (Chen Dx) 02/21/2022 Travel 01/24/2022 Office Visit Stem Cell Sadi Van F., 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; Transplant MD Status post [facility]; Rctyu-adgams-xk st disease, not otherwise specified 01/24/2022 Hospital Encounter Lab Germania Mace, 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; PA Status post [facility] cell transplant; Jnmnx-bvryse-zw st disease, not otherwise specified 01/24/2022 Travel 01/21/2022 Orders Only Stem Cell Rosanne Weaver, Myelodysplas tic syndrome, not otherwise specified (Primary Dx); Transplant DRY KILN BURNER Status post [facility] cell transplant 01/17/2022 Hospital Encounter Stem Cell Donald, Myelodysp lastic syndrome (Primary Dx); - Transplant MD Keegan Rosalls; 01/22/2022 Van Avitia, Status post stem cell transplant; Vhbpv-vyoege-wghb disease; Brandt Armas MD Hypomagnesemia; Shad Chambers MD Hypophospha temia; Migraine; Sepsis due to P seudomonas 01/17/2022 Office Visit Stem Cell Van Avitia, 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; Transplant MD Status post [facility] transplant; Tsnpu-srebfh-kb st disease, not otherwise specified 01/17/2022 Hospital Encounter Pheresis Van Avitia, Statu s post stem cell transplant 01/17/2022 Hospital Encounter Vascular Access Van Avitia, En counter for and Procedures MD arceo and Junaid, management of v ascular Saul S, TRACK SUPERINTENDENT access device 01/17/2022 Hospital Encounter Pheresis Deena Núñez Chron ic nxihj-jfzmlo-csub disease; M, PARLOR CHAPERONE Status post [facility] cell transplant; Complication of stem cell transplant 01/17/2022 Hospital Encounter Lab Van Avitia, 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; Status post [facility] cell transplant; Mgpfj-xrmnra-gi st disease, not otherwise specified 01/17/2022 Hospital Encounter Lab Deena Núñez Chron ic lnoiq-ukhvym-aedj disease; M, PARLOR CHAPERONE Complication of stem cell transplant 01/17/2022 Orders Only Pheresis Cristofer Lopez 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, 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) 01/17/2022 Travel 01/17/2022 Orders Only Pheresis Deena Núeñz Chronic gra ag-liazgm-bbtf disease (Primary Dx); M, PARLOR CHAPERONE Complication of stem cell transplant 01/09/2022 Orders Only Pheresis Deena Núñez Chronic gra xj-jvsrno-tkqn disease (Primary Dx); M, PARLOR CHAPERONE Complication of stem cell transplant 01/04/2022 Hospital Encounter Vascular Access Van Avitia, En counter for and Procedures adjustment and Ok, management of v elidiaular Henrry Dalal ms access database developer device 01/04/2022 Hospital Encounter PherVan Laughlin, Chron ic lqlng-fvyttm-ifjl disease; MD Status post [facility] cell transplant; Complication of stem cell transplant 01/04/2022 Hospital Encounter Lab Courtney, Chronic g zzip-yuvycy-vpxu disease; Lesley, CARRIER LOADER Status post [facility] cell transplant 01/04/2022 Travel 01/03/2022 Orders Only Pheresis Deena Núñez Chronic gra gh-wbojip-wwnf disease (Primary Dx); M, PARLOR CHAPERONE Status post [facility] cell transplant; Complication of stem cell transplant 01/02/2022 Orders Only Pheresis Deena Núñez Chronic gra uf-jlniqz-nsya disease (Primary Dx); M, PARLOR CHAPERONE Complication of stem cell transplant 01/01/2022 Orders Only Pheresis Courtney, Chronic graft-v ersus-host disease (Primary Dx); Lesley, CARRIER LOADER Status post [facility] cell transplant 12/27/2021 Hospital Encounter Vascular Access Van Avitia, En counter for and Procedures adjustment and Jose G Cowan, management of vascular ms access database developer device 12/27/2021 Hospital Encounter PherDeena Lopez Graft versus host disease; M, PARLOR CHAPERONE Chronic graft-v ersus-host disease; Complication of stem cell transplant; Myelodysplastic syndrome, not otherwise specified 12/27/2021 Hospital Encounter Lab Deena Núñez Graft versus host disease; M, PARLOR CHAPERONE Chronic graft-v ersus-host disease 12/27/2021 Orders Only Jackelyn Nelson, DENIS 12/27/2021 Documentation Jackelyn Nelson RN 12/27/2021 Telephone Jaceklyn Nelson RN 12/27/2021 Travel 12/27/2021 Orders Only Deena Spears Graft versu s host disease (Primary Dx); M, PARLOR CHAPERONE Chronic graft-v ersus-host disease 12/24/2021 Documentation Leukemia Hanna Morris A 12/19/2021 Orders Only Pheresis Deena Núñez Graft versu s host disease (Primary Dx); M, PARLOR CHAPERONE Chronic graft-v ersus-host disease 12/17/2021 Refill Stem Cell Lyndsay Patten, Acute myelob lastic leukemia not having achieved remission; Transplant PA Status post [facility] transplant; Ifgki-dovxuo-xu st disease, not otherwise specified 12/13/2021 Office Visit Stem Cell Trev Avitiaa F., 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; Transplant MD Status post [facility] cell transplant; Uufdp-asetso-hn st disease, not otherwise specified 12/13/2021 Hospital Encounter Vascular Access Vna Avitia, En counter for and Procedures MD arceo and Mary Weiss management of vascular J, ms access database developer device 12/13/2021 Hospital Encounter Pheresis Van Avitia, Graft versus host MD disease 12/13/2021 Hospital Encounter Lab Lyndasy Patten, 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; PA Status post [facility] cell transplant; Jggub-bnxmhl-bv st disease, not otherwise specified 12/13/2021 Orders Only Pheresis Deena Núñez Graft versu s host disease (Primary Dx); M, PARLOR CHAPERONE Chronic graft-v ersus-host disease 12/13/2021 Travel 12/12/2021 Refill Stem Cell Rosanne Castro, Abdominal pa in; 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 Stem cells feliciano splant status; Acute myeloblas tic leukemia not having achieved remission; Acute myeloblas tic leukemia not having achieved remission; Status post [facility] cell transplant 12/12/2021 Orders Only Pheresis Cynthia Centeno Graft versus host R., PARLOR CHAPERONE disease (Primar y Dx) 12/06/2021 Hospital Encounter Vascular Access Van Avitia, En counter for and Procedures adjustment and Sierra Barnett management of vascular M, ms access database developer device 12/06/2021 Hospital Encounter Pheresis Van Avitia F., Graft versus host disease; Chronic graft-v ersus-host disease 12/06/2021 Hospital Encounter Lab Deena Núñez Graft versus host disease; M, PARLOR CHAPERONE Chronic graft-v ersus-host disease 12/06/2021 Travel 12/05/2021 Orders Only Pheresis Centeno, Cynthia Graft versus host R., PARLOR CHAPERONE disease (Primar y Dx) 11/29/2021 Hospital Encounter Vascular Access Van Avitia F., En counter for and Procedures MD arceo and Wilfrid, management of v ascular Skye Lubin ms access database developer device Antonette Graham RN 11/29/2021 Hospital Encounter Pheresis Trev Avitiaa F., Graft versus host disease; Chronic graft-v ersus-host disease; High grade myel odysplastic syndrome lesions; Complication of stem cell transplant 11/29/2021 Hospital Encounter Lab Centeno, Cynthia Graft v ersus host R., PARLOR CHAPERONE disease 11/29/2021 Orders Only PherDeena Lopez Graft versu s host disease (Primary Dx); M, PARLOR CHAPERONE Chronic graft-v ersus-host disease 11/29/2021 Travel 11/28/2021 Orders Only Pheresis Centeno, Cynthia Graft versus host R., PARLOR CHAPERONE disease (Primar y Dx) 11/28/2021 Orders Only Pheresis Centeno, Cynthia Graft versus host R., PARLOR CHAPERONE disease (Primar y Dx) 11/20/2021 Hospital Encounter Vascular Access Van Avitia F., En counter for and Procedures MD arceo and Mckenna, management of vascular Consuelo Patel ms access database developer device ( Primary Dx) 11/20/2021 Hospital Encounter PherVan Laughlin F., Compl ication of stem cell transplant; Graft versus ho st disease; Myelodysplastic syndrome, not otherwise specified 11/20/2021 Hospital Encounter Deena Castle Compl ication of stem cell transplant; M, PARLOR CHAPERONE Graft versus ho st disease 11/20/2021 Travel 11/19/2021 Orders Only Deena Spears Complicatio n of stem cell transplant (Primary Dx); M, PARLOR CHAPERONE Graft versus ho st disease 11/15/2021 Telemedicine Stem Cell Van Avitia F., 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; Transplant MD Status post [facility] cell transplant; Ywzdd-jmbjgc-pu st disease, not otherwise specified 11/15/2021 Hospital Encounter Pheresis Van Avitia, Compl ication of stem cell transplant; Graft versus ho st disease; High grade myel odysplastic syndrome lesions 11/15/2021 Hospital Encounter Lab Lyndsay Patten, 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; PA Status post [facility] cell transplant; Kzixb-qfrnad-zu st disease, not otherwise specified 11/15/2021 Orders Only Pheresis Deena Núñez Complicatio n of stem cell transplant (Primary Dx); M, PARLOR CHAPERONE Graft versus ho st disease 11/15/2021 Travel 11/13/2021 Hospital Encounter Vascular Access Van Avitia, En counter for and Procedures MD adjustment and Aysha Sinha management o f vascular N, ms access database developer device ( Primary Dx) 11/13/2021 Office Visit Stem Cell Van Avitia, 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; Transplant MD Status post [facility] cell transplant; Qkfja-ryxjbg-tu st disease, not otherwise specified 11/13/2021 Hospital Encounter Pheresis Van Avitia, Compl ication of stem cell transplant; Graft versus ho st disease; High grade myel odysplastic syndrome lesions 11/13/2021 Hospital Encounter Lab Deena Núñez Compl ication of stem cell transplant; M, PARLOR CHAPERONE Graft versus ho st disease 11/13/2021 Hospital Encounter Lab Lyndsay Patten, 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; PA Status post [facility] cell transplant 11/13/2021 Travel 11/12/2021 Orders Only Pheresis Cynthia Centeno Graft versus host R., PARLOR CHAPERONE disease (Primar y Dx) 11/09/2021 Orders Only Pheresis Deena Núñez Complicatio n of stem cell transplant (Primary Dx); M, PARLOR CHAPERONE Graft versus ho st disease 11/08/2021 Hospital Encounter Pheresis Van Avitia., Compl ication of stem cell transplant; Graft versus ho st disease; High grade myel odysplastic syndrome lesions 11/08/2021 Office Visit Dermatology Keith Norman MD Graft versus host disease 11/08/2021 Travel 11/07/2021 Orders Only Pheresis Deena Núñez Complicatio n of stem cell transplant (Primary Dx); M, PARLOR CHAPERONE Graft versus ho st disease 11/06/2021 Hospital Encounter Pheresis Van Avitia, Compl ication of stem cell transplant; Graft versus ho st disease; Yrooh-gedurc-ri st disease, not otherwise specified; High grade myel odysplastic syndrome lesions 11/06/2021 Hospital Encounter Vascular Access Van Avitia, En counter for and Procedures MD arceo and Randal Piper, management of vascular ms access database developer device 11/06/2021 Hospital Encounter Lab Deena Núñez Compl ication of stem cell transplant; M, PARLOR CHAPERONE Graft versus ho st disease 11/06/2021 Travel 11/05/2021 Orders Only Pheresis Deena Núñez Complicatio n of stem cell transplant (Primary Dx); M, PARLOR CHAPERONE Graft versus ho st disease 11/05/2021 Refill Stem Cell Sorich, Rosanne, Acute myelob lastic leukemia not having achieved remission; 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 Status post [facility] cell transplant; Gwbxp-bjkjqb-nu st disease, not otherwise specified 11/02/2021 Orders Only Pheresis Deena Núñez Complicatio n of stem cell transplant (Primary Dx); M, PARLOR CHAPERONE Graft versus ho st disease 11/02/2021 Refill Stem Cell Sorich, Rosanne, Acute myelob lastic leukemia not having achieved remission; 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 Status post [facility] cell transplant; Myxfw-gegjfc-xn st disease, not otherwise specified 11/01/2021 Hospital Encounter Van Jacobsen, Graft versus host disease; Complication of stem cell transplant 11/01/2021 Hospital Encounter Lab Deena Núñez Compl ication of stem M, PARLOR CHAPERONE cell transplant 11/01/2021 Orders Only Pheresis Deena Núñez Complicatio n of stem cell transplant (Primary Dx); M, PARLOR CHAPERONE Graft versus ho st disease 11/01/2021 Travel 11/01/2021 Orders Only Pheresis Moe Calero Complicatio n of stem RN cell transplant (Primary Dx) 10/29/2021 Orders Only PherDeena Lopez versu s host disease (Primary Dx); M, PARLOR CHAPERONE Complication of stem cell transplant 10/29/2021 Orders Only Stem Cell Lyndsay Patten, Acute myelob lastic leukemia not having achieved remission; Transplant PA Status post [facility] cell transplant 10/26/2021 Orders Only Pheresis Niya, Deena Graft versu s host disease (Primary Dx); M, PARLOR CHAPERONE Complication of stem cell transplant 10/26/2021 Refill Stem Cell Rosanne Castro, 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 10/26/2021 Refill Stem Cell Rosanne Castro, 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 10/25/2021 Hospital Encounter Pheresis Van Avitia FMyra, Graft versus host disease; Complication of stem cell transplant 10/25/2021 Hospital Encounter Vascular Access Van Avitia F., En counter for and Procedures MD adjustment and Chucky, management of v ascular Andrew Hercules RN access device 10/25/2021 Hospital Encounter Radiology Marlen Little, PARLOR CHAPERONE Dyspn ea, not otherwise specified 10/25/2021 Refill Stem Cell Rosanne Castro, Chronic obst ructive 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 pulmonary disea se with acute exacerbat ion 10/25/2021 Travel 10/24/2021 Orders Only Pheresis Deena Núñez Graft versu s host disease (Primary Dx); M, PARLOR CHAPERONE Complication of stem cell transplant 10/23/2021 Hospital Encounter Pheresis Trev Avitiaa FMyra, Graft versus host disease; Complication of stem cell transplant; Acute myeloblas tic leukemia not having achieved remission; Status post [facility] cell transplant; Zvgga-crtyvi-ab st disease, not otherwise specified 10/23/2021 Hospital Encounter Lab Deena Núñez Graft versus host disease; M, PARLOR CHAPERONE Complication of stem cell transplant 10/23/2021 Orders Only Stem Cell Patten, Lyndsay, Acute myelob lastic leukemia not having achieved remission; Transplant PA Status post [facility] cell transplant 10/23/2021 Travel 10/23/2021 Documentation Leukemia Facciolli, Izabella 10/22/2021 Orders Only Pheresis Deena Núñez Graft versu s host disease (Primary Dx); M, PARLOR CHAPERONE Complication of stem cell transplant 10/22/2021 Refill Stem Cell Rosanne Castro, Acute myelob lastic leukemia not having achieved remission; 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 Status post [facility] cell transplant; Abdominal pain; Stem cells feliciano splant status; Acute myeloblas tic leukemia not having achieved remission; Headache; Fdbdj-ojmskz-hq st disease, not otherwise specified; Cellulitis, not otherwise specified 10/18/2021 Hospital Encounter Vascular Access Trev Avitiaa F., En counter for and Procedures adjustment and Ok, management of v ascular Henrry J, ms access database developer device 10/18/2021 Hospital Encounter Pheresis Trev Avitiaa F., Graft versus host disease; Complication of stem cell transplant; High grade myel odysplastic syndrome lesions 10/18/2021 Hospital Encounter Lab Dheeraj Núñezle Graft versus host disease; M, PARLOR CHAPERONE Complication of stem cell transplant 10/18/2021 Orders Only Pheresis Niya, Deena Graft versu s host M, PARLOR CHAPERONE disease (Primar y Dx) 10/18/2021 Travel 10/15/2021 Orders Only Pheresis Niya, Deena Graft versu s host disease (Primary Dx); M, PARLOR CHAPERONE Complication of stem cell transplant 10/11/2021 Office Visit Stem Cell Van Avitia F., 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; Transplant MD Status post juani m cell transplant; Fnchz-evngyt-kb st disease, not otherwise specified 10/11/2021 Hospital Encounter Vascular Access Van Avitia, En counter for and Procedures adjustment and Ok, management of v ascular Henrry J, ms access database developer device 10/11/2021 Hospital Encounter Pheresis Trev Avitiaa F., Graft versus host disease; Complication of stem cell transplant; High grade myel odysplastic syndrome lesions 10/11/2021 Hospital Encounter Lab Trev Avitiaa F., 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; MD Status post juani m cell transplant; Zimfh-kioqag-wd st disease, not otherwise specified 10/11/2021 Orders Only Pheresis Niya, Deena Graft versu s host disease (Primary Dx); M, PARLOR CHAPERONE Complication of stem cell transplant 10/11/2021 Travel 10/10/2021 Orders Only Pheresis Niya, Deena Graft versu s host disease (Primary Dx); M, PARLOR CHAPERONE Complication of stem cell transplant 10/09/2021 Hospital Encounter Pheresis Trev Avitiaa F., Graft versus host disease; Complication of stem cell transplant; High grade myel odysplastic syndrome lesions 10/09/2021 Hospital Encounter Lab Niya, Deena Graft versus host disease; M, PARLOR CHAPERONE Complication of stem cell transplant 10/09/2021 Travel 10/05/2021 Orders Only Pheresis Niya, Deena Graft versu s host disease (Primary Dx); M, PARLOR CHAPERONE Complication of stem cell transplant 10/04/2021 Hospital Encounter Vascular Access Van Avitia, En counter for and Procedures MD arceo and Radha Negro management of vascular H, ms access database developer device 10/04/2021 Hospital Encounter Pheresis Van Avitia, Graft versus host disease; Complication of stem cell transplant; High grade myel odysplastic syndrome lesions 10/04/2021 Orders Only Pheresis Niya, Deena Graft versu s host disease (Primary Dx); M, PARLOR CHAPERONE Complication of stem cell transplant 10/04/2021 Documentation Cardiology Marely Coley, PA 10/04/2021 Travel 10/03/2021 Orders Only Pheresis Niya, Deena Graft versu s host disease (Primary Dx); M, PARLOR CHAPERONE Complication of stem cell transplant 10/02/2021 Hospital Encounter Pheresis Van Avitia, Graft versus host disease; Complication of stem cell transplant; Chronic graft-v ersus-host disease; High grade myel odysplastic syndrome lesions 10/02/2021 Hospital Encounter Lab Niya Deena Graft versus host disease; M, PARLOR CHAPERONE Complication of stem cell transplant 10/02/2021 Travel 10/01/2021 Orders Only Pheresis Niya, Deena Graft versu s host disease (Primary Dx); M, PARLOR CHAPERONE Complication of stem cell transplant 10/01/2021 Refill Stem Cell Rosanne Castro, Acute myelob lastic leukemia not having achieved remission; 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 Status post juani m cell transplant; Wzkra-yxaonu-pm st disease, not otherwise specified 09/28/2021 Orders Only Pheresis Niya, Deena Graft versu s host disease (Primary Dx); M, PARLOR CHAPERONE Complication of stem cell transplant 09/27/2021 Office Visit Stem Cell Van Avitia, 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; Transplant MD Status post juani m cell transplant; Ieubd-gdmixm-cw st disease, not otherwise specified 09/27/2021 Hospital Encounter Pheresis Van Avitia., Compl ication of stem cell transplant; Graft versus ho st disease; High grade myel odysplastic syndrome lesions 09/27/2021 Hospital Encounter Lab Michelle, Acute mye loblastic leukemia not having achieved remission; Kinjal Jovanna, PA Status post stem cell transplant; Bdwbo-ziywao-kb st disease, not otherwise specified 09/27/2021 Travel 09/27/2021 Orders Only Deena Spears Graft versu s host disease (Primary Dx); M, PARLOR CHAPERONE Complication of stem cell transplant 09/25/2021 Telemedicine Cardiology Tima Wise, Supraventri cular tachycardia Marely Colye PA 09/25/2021 Orders Only Pulmonology Marlen Little, NED Chronic obs tructive pulmonary disea se with acute exacerbat ion (Primary Dx) 09/24/2021 Office Visit Pulmonology Canelo Alexnadre, 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-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 obstructive pulmonary Ludwig Vega, disease ove rlap MD syndrome 09/24/2021 Hospital Encounter Pulmonology Van Avitia, Asthm a-chronic MD obstructive pul monary disease overlap syndrome 09/24/2021 Hospital Encounter Pheresis Van Avitia, Compl ication of stem cell transplant; Graft versus ho st disease 09/24/2021 Hospital Encounter Lab Van Avitia, Compl ication of stem MD cell transplant 09/24/2021 Orders Only Pulmonology Marlen Little, NED Dyspnea, no t otherwise specified (Prim timoteo Dx) 09/24/2021 Travel 09/24/2021 Orders Only Deena Spears Complicatio n of stem cell transplant (Primary Dx); M, PARLOR CHAPERONE Graft versus ho st disease 09/21/2021 Orders Only PherMoe Chao, Complicatio n of stem RN cell transplant (Primary Dx) 09/18/2021 Hospital Encounter Vascular Access Van Avitia, En counter for and Procedures MD arceo and Junaid, management of v ascular Saul S, TRACK SUPERINTENDENT access device 09/18/2021 Hospital Encounter PherCynthia Toledo Chronic mkelh-rkeonj-hvsi disease; R., PARLOR CHAPERONE Graft versus ho st disease; Complication of bone marrow transplant, not otherwise specified; Hypokalemia 09/18/2021 Hospital Encounter Lab Cynthia Centeno Chronic R., PARLOR CHAPERONE sgpah-eaiask-lt st disease 09/18/2021 Travel 09/17/2021 Orders Only Pheresis Deena Núñez Graft versu s host disease (Primary Dx); M, PARLOR CHAPERONE Complication of bone marrow transplant, not otherwise specified 09/17/2021 Refill Stem Cell Hanna Sarah, 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 09/11/2021 Hospital Encounter Pheresis Deena Núñez Graft versus host disease; M, PARLOR CHAPERONE Complication of bone marrow transplant, not otherwise specified; Acute myeloblas tic leukemia not having achieved remission; High grade myel odysplastic syndrome lesions 09/11/2021 Travel 09/10/2021 Hospital Encounter Pheresis Van Avitia F., Chron ic atvlq-eruxqd-ruzp disease (Primary Dx); Graft versus ho st disease; Complication of bone marrow transplant, not otherwise specified 09/10/2021 Hospital Encounter Lab Deena Núñez Graft versus host disease; M, PARLOR CHAPERONE Complication of bone marrow transplant, not otherwise specified 09/10/2021 Travel 09/07/2021 Orders Only Pheresis Deena Núñez Graft versu s host disease (Primary Dx); M, PARLOR CHAPERONE Complication of bone marrow transplant, not otherwise specified 09/06/2021 Office Visit Stem Cell Trev Avitiaa F., 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; Transplant MD Status post juani m cell transplant; Uaipo-kyhbje-gr st disease, not otherwise specified; Shortness of br eath 09/06/2021 Hospital Encounter Lab Jaleel Duque PA 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; Status post juani m cell transplant; Ucypm-ixkkai-hc st disease, not otherwise specified; Shortness of br eath 09/06/2021 Hospital Encounter PherVan Laughlin F., Graft versus host disease; Complication of bone marrow transplant, not otherwise specified 09/06/2021 Orders Only Stem Cell Michelle, Acute myeloblas tic leukemia not having achieved remission (Primary Dx); Transplant CRISTINO Quinonez Status post stem cell transplant; Pwuxn-hkntuv-na st disease, not otherwise specified 09/06/2021 Travel 09/06/2021 Orders Only Pheresis Deena Núñez M, PARLOR CHAPERONE 09/04/2021 Hospital Encounter Vascular Access Van Avitia F., En counter for and Procedures MD adjustment and Aranas, Rodulfo management o f vascular T JrMyra, ms access database developer device 09/04/2021 Hospital Encounter Van Jacobsen, Graft versus host disease; Complication of bone marrow transplant, not otherwise specified; High grade myel odysplastic syndrome lesions; Complication of stem cell transplant 09/04/2021 Hospital Encounter Deena Castle Graft versus host disease; M, PARLOR CHAPERONE Complication of bone marrow transplant, not otherwise specified 09/04/2021 Travel 09/03/2021 Orders Only Deena Spears Graft versu s host disease (Primary Dx); M, PARLOR CHAPERONE Complication of bone marrow transplant, not otherwise specified 08/31/2021 Orders Only Cynthia Bryant NP after 08/31/2021 Immunizations Name Administration Dates Next Due DTaP / IPV 10/31/2020, 06/06/2020, 01/21/2020 Hepatitis A 10/31/2020, 01/21/2020 Hepatitis B 10/31/2020, 06/06/2020, 01/21/2020 Hib (PRP-OMP) 10/31/2020, 06/06/2020, 01/21/2020 Influenza Quadrivalent High Dose 07/16/2022, 08/21/2021 Influenza, Quadrivalent 06/29/2020, 08/05/2018 Influenza, Unspecified 06/29/2020 Sofia SARS-CoV-2 Vaccination 12/01/2020 Pneumococcal Conjugate 13-Valent 10/31/2020, 06/06/2020, 09/2019 Pneumococcal Polysaccharide 05/10/2021 Surgical History Surgery Date Site/Laterality Comments APPENDECTOMY 09/22/1994 - 09/21/1995 BACK SURGERY 09/22/2017 - 09/21/2018 COLONOSCOPY 09/22/2015 - 09/21/2016 HERNIA REPAIR 09/22/1996 - 09/21/1997 HYSTERECTOMY 09/22/1991 - 09/21/1992 CHOLECYSTECTOMY 09/22/1996 - 09/21/1997 HIP ARTHROPLASTY 09/22/2014 - 2013 right hip replacement 09/21/2015 and 2014 left hi p replacement INFUSION PUMP IMPLANTATION Right inser angelic 2007 and changed in 2014 with new battery (MORPHINE ) INCONTINENCE SURGERY 09/22/2015 - 09/21/2016 TONSILLECTOMY 09/22/1965 - 09/21/1966 CARPAL TUNNEL RELEASE 09/22/2005 - Right 09/21/2006 DC EGD TRANSORAL BIOPSY 09/20/2019 Esophagus/N/A Procedur e: UPPER SINGLE/MULTIPLE GASTROINTESTINAL ENDOSCOPY OF ESOPHAGUS, ST OMACH, AND DUODENUM WITH BI OPSY; Surgeon: Pancho Carvalho MD; Location: [facility]; Servi ce: GASTROENTEROLOGY DC SIGMOIDOSCOPY FLX 09/20/2019 Anus/N/A Procedure: FLEXIBLE W/BIOPSY SINGLE/MULTIPLE SIGMOID OSCOPY WITH BIOPSY; Surgeon: Pancho Carvalho MD; Location[facility]; Servi ce: GASTROENTEROLOGY DC SIGMOIDOSCOPY FLX 04/28/2020 Anus/N/A Procedure: FLEXIBLE W/BIOPSY SINGLE/MULTIPLE SIGMOID OSCOPY WITH BIOPSY; Surgeon: Pancho Carvalho MD; Location[facility]; Servi ce: GASTROENTEROLOGY DC EGD TRANSORAL BIOPSY 04/28/2020 Esophagus/N/A Procedur e: UPPER SINGLE/MULTIPLE GASTROINTESTINAL ENDOSCOPY OF ESOPHAGUS, ST OMACH, AND DUODENUM WITH BI OPSY; Surgeon: Pancho Carvalho MD; Location[facility]; Servi ce: GASTROENTEROLOGY DC EGD TRANSORAL BIOPSY 06/28/2021 Esophagus/N/A Procedur e: UPPER SINGLE/MULTIPLE GASTROINTESTINAL ENDOSCOPY OF ESOPHAGUS, ST OMACH, AND DUODENUM WITH BI OPSY; Surgeon: Shanon paredes MD; Location: [facility]; Service: GASTROE NTEROLOGY Medical History Medical History Date Comments Hypertension 2000 Hyperlipidemia 2000 Migraine 1976 Asthma 2005 Gastric reflux 1999 Irritable bowel syndrome 2000 Urinary incontinence 2005 urinary incontinenc e with coughing and sneezing Menopause 1991 Anemia 2019 Blood transfusion, without reported 2019 diagnosis Arthritis 2000 Scoliosis 1974 Depressive disorder 1992 Anxiety 1992 Fracture of humerus Fracture of humerus 1973 rigth broken arm Status post total hysterectomy 1988 Gastroesophageal reflux disease Cancer Chronic obstructive pulmonary disease 06/04/2022 Family History Medical History Relation Name Comments Acute myelogenous leukemia Daughter Kinjal Myelodysplastic syndrome Daughter Kinjal -Other cancer Father Alex Bladder cancer Bladder Cancer Father Alex Breast cancer Paternal Aunt Breast cancer Paternal Cousin Relation Name Status Comments Daughter Kinjal (Age 27) Father Alex (Age 87) Half-Brother 1 Guy Alive Half-Brother 2 Kavon Alive Half-Brother 3 Celio Alive Maternal Aunt 1 Alive Maternal Aunt 2 Alive Maternal Grandfather (Age 50s) Maternal Grandmother (Age 98) Mother Alive Other 1 Alive Other 2 Alive Other 3 Alive Other 4 Alive Other 5 Alive Other 6 Alive Paternal Aunt Alive Paternal Cousin Alive Paternal Grandfather Paternal Grandmother Paternal Uncle Alive Social History Tobacco Use Types Packs/Day Years Used Date Smoking Tobacco: Former Cigarettes 09/1976 - 09/22/2009 Smokeless Tobacco: Never Tobacco Cessation: Counseling Given: Yes Alcohol Use Standard Drinks/Week Comments Not Asked 0 (1 standard drink = 0.6 oz pure alcoho l) Sex Assigned at Date Recorded Female 05/13/2021 3:30 PM CDT Job Start Date Occupation Industry Not on file Not on file Not on file COVID-19 Exposure Response Date Recorded In the last 10 days, have you been in contact with No / Unsu re 08/27/2022 12:21 PM WOOL CARDER someone who was confirmed or suspected to have Coronavirus/COVID-19? Obstetrics History Last Filed Vital Signs Vital Sign Reading Time Taken Comments Blood Pressure 115/65 08/27/2022 1:24 PM WOOL CARDER Pulse 79 08/27/2022 1:24 PM WOOL CARDER Temperature 36.7 C (98.1 F) 08/27/2022 1:24 PM WOOL CARDER Respiratory Rate 18 08/27/2022 1:24 PM WOOL CARDER Oxygen Saturation 96% 08/27/2022 1:24 PM WOOL CARDER Inhaled Oxygen Concentration - - Weight 105 kg (231 lb 7.7 oz) 08/27/2022 1:15 PM WOOL CARDER Height 162.6 cm (5' 4") 08/08/2022 10:35 AM WOOL CARDER Body Mass Index 39.73 08/08/2022 10:35 AM WOOL CARDER Plan of Treatment Date Type Specialty Care Team Description 10/08/2022 Appointment Lab Van Avitia MD [address] [place], [place] [address] (Wo rk) 10/08/2022 Follow-Up Stem Cell Transplant Trev Avitia MD [address] [place], [place] [address] (Brisa rk) 11/28/2022 Appointment Speech Pathology Naldo Taylor FNP [address] [place] [phone] Betty Gil, [facility] [address] [place] [address] 11/28/2022 Follow-Up Dermatology Keith Norman MD [address] [place] [address] (Wo rk) 12/02/2022 Appointment Pulmonology Van Avitia MD [address] [place] [address] (Wo rk) 12/02/2022 Follow-Up Pulmonology Van Avitia MD [address] [place] [id number] Johanna Gonsalez NP [address] [place] [phone] Follow-Up Cardiology Radhames Cruz PA [address] [place], [place] [address] (Wo rk) Health Maintenance Due Date Last Done Comments COVID-19 Vaccination (2 - Sofia risk series) 12/29/2020 0 12/01/2020 Medical Devices Implanted Type Area Manager Customer Service Device Shelf Model / Identifier Expiration Date Ser ial / Lot Neck C5-C6,Hips Metalware unsure Bilateral Description: Patient has pain pump on rt abdominal region, metal plate in neck at c5-c6, screws in hip replacement Pump-07/15/2019 Pump Abdomen [id number] -20 20 ML RESERVOIR / Implanted: 07/15/2019 (Quantity not on file) [id number] / Description: Implanted on 2007 changed b attery on 2014: Morphine pump: Synchromed IIb Conditional up to 3T Ok to scan by Dr. Addy Floyd on 07/15/19 Procedures Procedure Name Priority Date/Time Associated Diagnosis Comme nts XR HIP 3 OR 4 VW Routine 08/27/2022 1:18 Pelvic pain Results for BILATERAL W PELVIS PM WOOL CARDER this proc edure are in the results section. TMP INTERPRETATION Routine 08/27/2022 Results f or ANTIBODY SCREEN 11:53 AM WOOL CARDER this procedu re NEGATIVE are in the results section. CLOT EXPIRATION DATE Routine 08/27/2022 Results for 11:53 AM WOOL CARDER this procedure are in the results section. ANTIBODY SCREEN Routine 08/27/2022 Acute myeloblastic Result s for 11:53 AM WOOL CARDER leukemia not having this pro cedure achieved remissi on are in the Status post stem cell result s transplant section. ABORH Routine 08/27/2022 Acute myeloblastic Results f or 11:53 AM WOOL CARDER leukemia not having this pro cedure achieved remissi on are in the Status post stem cell result s transplant section. FRACTIONATED BILIRUBIN Routine 08/27/2022 Acute myeloblastic Results for 11:53 AM WOOL CARDER leukemia not having this pro cedure achieved remissi on are in the Status post stem cell result s transplant section. TOTAL PROTEIN Routine 08/27/2022 Acute myeloblastic Results for 11:53 AM WOOL CARDER leukemia not having this pro cedure achieved remissi on are in the Status post stem cell result s transplant section. ASPARTATE Routine 08/27/2022 Acute myeloblastic Results f or AMINOTRANSFERASE 11:53 AM WOOL CARDER leukemia not having this procedure achieved remissi on are in the Status post stem cell result s transplant section. ALANINE Routine 08/27/2022 Acute myeloblastic Results f or AMINOTRANSFERASE 11:53 AM WOOL CARDER leukemia not having this procedure achieved remissi on are in the Status post stem cell result s transplant section. ALKALINE PHOSPHATASE Routine 08/27/2022 Acute myeloblastic R esults for 11:53 AM WOOL CARDER leukemia not having this pro cedure achieved remissi on are in the Status post stem cell result s transplant section. ALBUMIN LEVEL Routine 08/27/2022 Acute myeloblastic Results for 11:53 AM WOOL CARDER leukemia not having this pro cedure achieved remissi on are in the Status post stem cell result s transplant section. CALCIUM LEVEL TOTAL Routine 08/27/2022 Acute myeloblastic Re sults for 11:53 AM WOOL CARDER leukemia not having this pro cedure achieved remissi on are in the Status post stem cell result s transplant section. .GLOMERULAR FILTRATION Routine 08/27/2022 Acute myeloblastic Results for RATE 11:53 AM WOOL CARDER leukemia not having this pro cedure achieved remissi on are in the Status post stem cell result s transplant section. SERUM CREATININE Routine 08/27/2022 Acute myeloblastic Resul ts for 11:53 AM WOOL CARDER leukemia not having this pro cedure achieved remissi on are in the Status post stem cell result s transplant section. ELECTROLYTE PANEL Routine 08/27/2022 Acute myeloblastic Resu lts for 11:53 AM WOOL CARDER leukemia not having this pro cedure achieved remissi on are in the Status post stem cell result s transplant section. BLOOD UREA NITROGEN Routine 08/27/2022 Acute myeloblastic Re sults for 11:53 AM WOOL CARDER leukemia not having this pro cedure achieved remissi on are in the Status post stem cell result s transplant section. GLUCOSE LEVEL Routine 08/27/2022 Acute myeloblastic Results for 11:53 AM WOOL CARDER leukemia not having this pro cedure achieved remissi on are in the Status post stem cell result s transplant section. MANUAL DIFFERENTIAL Routine 08/27/2022 Acute myeloblastic Re sults for 11:53 AM WOOL CARDER leukemia not having this pro cedure achieved remissi on are in the Status post stem cell result s transplant section. Results CBC Routine 08/27/2022 Acute myeloblastic Results f or 11:53 AM WOOL CARDER leukemia not having this pro cedure achieved remissi on are in the Status post stem cell result s transplant section. CMV QUANT PCR Routine 08/27/2022 Acute myeloblastic Results for 11:53 AM WOOL CARDER leukemia not having this pro cedure achieved remissi on are in the Status post stem cell result s transplant section. TACROLIMUS LEVEL Routine 08/27/2022 Acute myeloblastic Resul ts for 11:53 AM WOOL CARDER leukemia not having this pro cedure achieved remissi on are in the Status post stem cell result s transplant section. MAGNESIUM LEVEL Routine 08/27/2022 Acute myeloblastic Result s for 11:53 AM WOOL CARDER leukemia not having this pro cedure achieved remissi on are in the Status post stem cell result s transplant section. LACTATE DEHYDROGENASE Routine 08/27/2022 Acute myeloblastic Results for 11:53 AM WOOL CARDER leukemia not having this pro cedure achieved remissi on are in the Status post stem cell result s transplant section. URIC ACID Routine 08/27/2022 Acute myeloblastic Results f or 11:53 AM WOOL CARDER leukemia not having this pro cedure achieved remissi on are in the Status post stem cell result s transplant section. PHOSPHORUS LEVEL Routine 08/27/2022 Acute myeloblastic Resul ts for 11:53 AM WOOL CARDER leukemia not having this pro cedure achieved remissi on are in the Status post stem cell result s transplant section. COMPREHENSIVE Routine 08/27/2022 Acute myeloblastic METABOLIC PANEL 11:53 AM WOOL CARDER leukemia not having achieved remissi on Status post stem cell transplant TYPE AND SCREEN Routine 08/27/2022 Acute myeloblastic 11:53 AM WOOL CARDER leukemia not having achieved remissi on Status post stem cell transplant COMPLETE BLOOD COUNT Routine 08/27/2022 Acute myeloblastic W/ DIFFERENTIAL 11:53 AM WOOL CARDER leukemia not having achieved remissi on Status post stem cell transplant FRACTIONATED BILIRUBIN Routine 08/08/2022 Acute myeloblastic Results for 11:20 AM WOOL CARDER leukemia not having this pro cedure achieved remissi on are in the Status post stem cell result s transplant section. TOTAL PROTEIN Routine 08/08/2022 Acute myeloblastic Results for 11:20 AM WOOL CARDER leukemia not having this pro cedure achieved remissi on are in the Status post stem cell result s transplant section. ASPARTATE Routine 08/08/2022 Acute myeloblastic Results f or AMINOTRANSFERASE 11:20 AM WOOL CARDER leukemia not having this procedure achieved remissi on are in the Status post stem cell result s transplant section. ALANINE Routine 08/08/2022 Acute myeloblastic Results f or AMINOTRANSFERASE 11:20 AM WOOL CARDER leukemia not having this procedure achieved remissi on are in the Status post stem cell result s transplant section. ALKALINE PHOSPHATASE Routine 08/08/2022 Acute myeloblastic R esults for 11:20 AM WOOL CARDER leukemia not having this pro cedure achieved remissi on are in the Status post stem cell result s transplant section. ALBUMIN LEVEL Routine 08/08/2022 Acute myeloblastic Results for 11:20 AM WOOL CARDER leukemia not having this pro cedure achieved remissi on are in the Status post stem cell result s transplant section. CALCIUM LEVEL TOTAL Routine 08/08/2022 Acute myeloblastic Re sults for 11:20 AM WOOL CARDER leukemia not having this pro cedure achieved remissi on are in the Status post stem cell result s transplant section. .GLOMERULAR FILTRATION Routine 08/08/2022 Acute myeloblastic Results for RATE 11:20 AM WOOL CARDER leukemia not having this pro cedure achieved remissi on are in the Status post stem cell result s transplant section. SERUM CREATININE Routine 08/08/2022 Acute myeloblastic Resul ts for 11:20 AM WOOL CARDER leukemia not having this pro cedure achieved remissi on are in the Status post stem cell result s transplant section. ELECTROLYTE PANEL Routine 08/08/2022 Acute myeloblastic Resu lts for 11:20 AM WOOL CARDER leukemia not having this pro cedure achieved remissi on are in the Status post stem cell result s transplant section. BLOOD UREA NITROGEN Routine 08/08/2022 Acute myeloblastic Re sults for 11:20 AM WOOL CARDER leukemia not having this pro cedure achieved remissi on are in the Status post stem cell result s transplant section. GLUCOSE LEVEL Routine 08/08/2022 Acute myeloblastic Results for 11:20 AM WOOL CARDER leukemia not having this pro cedure achieved remissi on are in the Status post stem cell result s transplant section. MANUAL DIFFERENTIAL Routine 08/08/2022 Acute myeloblastic Re sults for 11:20 AM WOOL CARDER leukemia not having this pro cedure achieved remissi on are in the Status post stem cell result s transplant section. Results CBC Routine 08/08/2022 Acute myeloblastic Results f or 11:20 AM WOOL CARDER leukemia not having this pro cedure achieved remissi on are in the Status post stem cell result s transplant section. MAGNESIUM LEVEL Routine 08/08/2022 Acute myeloblastic Result s for 11:20 AM WOOL CARDER leukemia not having this pro cedure achieved remissi on are in the Status post stem cell result s transplant section. PHOSPHORUS LEVEL Routine 08/08/2022 Acute myeloblastic Resul ts for 11:20 AM WOOL CARDER leukemia not having this pro cedure achieved remissi on are in the Status post stem cell result s transplant section. TACROLIMUS LEVEL Routine 08/08/2022 Acute myeloblastic Resul ts for 11:20 AM WOOL CARDER leukemia not having this pro cedure achieved remissi on are in the Status post stem cell result s transplant section. LACTATE DEHYDROGENASE Routine 08/08/2022 Acute myeloblastic Results for 11:20 AM WOOL CARDER leukemia not having this pro cedure achieved remissi on are in the Status post stem cell result s transplant section. COMPREHENSIVE Routine 08/08/2022 Acute myeloblastic METABOLIC PANEL 11:20 AM WOOL CARDER leukemia not having achieved remissi on Status post stem cell transplant COMPLETE BLOOD COUNT Routine 08/08/2022 Acute myeloblastic W/ DIFFERENTIAL 11:20 AM WOOL CARDER leukemia not having achieved remissi on Status post stem cell transplant CMV QUANT PCR Routine 08/08/2022 Acute myeloblastic Results for 11:20 AM WOOL CARDER leukemia not having this pro cedure achieved remissi on are in the Status post stem cell result s transplant section. 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 TMP INTERPRETATION Routine 07/30/2022 9:48 Result s for ANTIBODY SCREEN AM WOOL CARDER this procedu re NEGATIVE are in the results section. CLOT EXPIRATION DATE Routine 07/30/2022 9:48 Resu lts for AM WOOL CARDER this procedure are in the results section. ANTIBODY SCREEN Routine 07/30/2022 9:48 Acute myeloblastic Res ults for AM WOOL CARDER leukemia not having this pro cedure achieved remissi on are in the Status post stem cell result s transplant section. ABORH Routine 07/30/2022 9:48 Acute myeloblastic Result s for AM WOOL CARDER leukemia not having this pro cedure achieved remissi on are in the Status post stem cell result s transplant section. FRACTIONATED BILIRUBIN Routine 07/30/2022 9:48 Acute myeloblas tic Results for AM WOOL CARDER leukemia not having this pro cedure achieved remissi on are in the Status post stem cell result s transplant section. TOTAL PROTEIN Routine 07/30/2022 9:48 Acute myeloblastic Resul ts for AM WOOL CARDER leukemia not having this pro cedure achieved remissi on are in the Status post stem cell result s transplant section. ASPARTATE Routine 07/30/2022 9:48 Acute myeloblastic Result s for AMINOTRANSFERASE AM WOOL CARDER leukemia not having this procedure achieved remissi on are in the Status post stem cell result s transplant section. ALANINE Routine 07/30/2022 9:48 Acute myeloblastic Result s for AMINOTRANSFERASE AM WOOL CARDER leukemia not having this procedure achieved remissi on are in the Status post stem cell result s transplant section. ALKALINE PHOSPHATASE Routine 07/30/2022 9:48 Acute myeloblasti c Results for AM WOOL CARDER leukemia not having this pro cedure achieved remissi on are in the Status post stem cell result s transplant section. ALBUMIN LEVEL Routine 07/30/2022 9:48 Acute myeloblastic Resul ts for AM WOOL CARDER leukemia not having this pro cedure achieved remissi on are in the Status post stem cell result s transplant section. 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 .GLOMERULAR FILTRATION Routine 07/30/2022 9:48 Acute myeloblas tic Results for RATE AM WOOL CARDER leukemia not having this pro cedure achieved remissi on are in the Status post stem cell result s transplant section. SERUM CREATININE Routine 07/30/2022 9:48 Acute myeloblastic Re sults for AM WOOL CARDER leukemia not having this pro cedure achieved remissi on are in the Status post stem cell result s transplant section. ELECTROLYTE PANEL Routine 07/30/2022 9:48 Acute myeloblastic R esults for AM WOOL CARDER leukemia not having this pro cedure achieved remissi on are in the Status post stem cell result s transplant section. 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 GLUCOSE LEVEL Routine 07/30/2022 9:48 Acute myeloblastic Resul ts for AM WOOL CARDER leukemia not having this pro cedure achieved remissi on are in the Status post stem cell result s transplant section. 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 CMV QUANT PCR Routine 07/30/2022 9:48 Acute myeloblastic Resul ts for AM WOOL CARDER leukemia not having this pro cedure achieved remissi on are in the Status post stem cell result s transplant section. TACROLIMUS LEVEL Routine 07/30/2022 9:48 Acute myeloblastic Re sults for AM WOOL CARDER leukemia not having this pro cedure achieved remissi on are in the Status post stem cell result s transplant section. MAGNESIUM LEVEL Routine 07/30/2022 9:48 Acute myeloblastic Res ults for AM WOOL CARDER leukemia not having this pro cedure achieved remissi on are in the Status post stem cell result s transplant section. LACTATE DEHYDROGENASE Routine 07/30/2022 9:48 Acute myeloblast ic Results for AM WOOL CARDER leukemia not having this pro cedure achieved remissi on are in the Status post stem cell result s transplant section. URIC ACID Routine 07/30/2022 9:48 Acute myeloblastic Result s for AM WOOL CARDER leukemia not having this pro cedure achieved remissi on are in the Status post stem cell result s transplant section. PHOSPHORUS LEVEL Routine 07/30/2022 9:48 Acute myeloblastic Re sults for AM WOOL CARDER leukemia not having this pro cedure achieved remissi on are in the Status post stem cell result s transplant section. 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 TOTAL PROTEIN Routine 07/25/2022 2:31 Acute myeloblastic Resul ts for PM CDT leukemia not having this pro cedure achieved remissi on are in the Status post stem cell result s transplant section. ASPARTATE Routine 07/25/2022 2:31 Acute myeloblastic Result s for AMINOTRANSFERASE PM CDT leukemia not having this procedure achieved remissi on are in the Status post stem cell result s transplant section. ALANINE Routine 07/25/2022 2:31 Acute myeloblastic Result s for AMINOTRANSFERASE PM CDT leukemia not having this procedure achieved remissi on are in the Status post stem cell result s transplant section. ALKALINE PHOSPHATASE Routine 07/25/2022 2:31 Acute myeloblasti c Results for PM CDT leukemia not having this pro cedure achieved remissi on are in the Status post stem cell result s transplant section. ALBUMIN LEVEL Routine 07/25/2022 2:31 Acute myeloblastic Resul ts for PM CDT leukemia not having this pro cedure achieved remissi on are in the Status post stem cell result s transplant section. CALCIUM LEVEL TOTAL Routine 07/25/2022 2:31 Acute myeloblastic Results for PM CDT leukemia not having this pro cedure achieved remissi on are in the Status post stem cell result s transplant section. .GLOMERULAR FILTRATION Routine 07/25/2022 2:31 Acute myeloblas tic Results for RATE PM CDT leukemia not having this pro cedure achieved remissi on are in the Status post stem cell result s transplant section. SERUM CREATININE Routine 07/25/2022 2:31 Acute myeloblastic Re sults for PM CDT leukemia not having this pro cedure achieved remissi on are in the Status post stem cell result s transplant section. ELECTROLYTE PANEL Routine 07/25/2022 2:31 Acute myeloblastic R esults for PM CDT leukemia not having this pro cedure achieved remissi on are in the Status post stem cell result s transplant section. BLOOD UREA NITROGEN Routine 07/25/2022 2:31 Acute myeloblastic Results for PM CDT leukemia not having this pro cedure achieved remissi on are in the Status post stem cell result s transplant section. GLUCOSE LEVEL Routine 07/25/2022 2:31 Acute myeloblastic Resul ts for PM CDT leukemia not having this pro cedure achieved remissi on are in the Status post stem cell result s transplant section. MANUAL DIFFERENTIAL Routine 07/25/2022 2:31 Acute myeloblastic Results for PM CDT leukemia not having this pro cedure achieved remissi on are in the Status post stem cell result s transplant section. Results CBC Routine 07/25/2022 2:31 Acute myeloblastic Result s for PM CDT leukemia not having this pro cedure achieved remissi on are in the Status post stem cell result s transplant section. PHOSPHORUS LEVEL Routine 07/25/2022 2:31 Acute myeloblastic Re sults for PM CDT leukemia not having this pro cedure achieved remissi on are in the Status post stem cell result s transplant section. MAGNESIUM LEVEL Routine 07/25/2022 2:31 Acute myeloblastic Res ults for PM CDT leukemia not having this pro cedure achieved remissi on are in the Status post stem cell result s transplant section. LACTATE DEHYDROGENASE Routine 07/25/2022 2:31 Acute myeloblast ic Results for PM CDT leukemia not having this pro cedure achieved remissi on are in the Status post stem cell result s transplant section. COMPREHENSIVE Routine 07/25/2022 2:31 Acute myeloblastic METABOLIC PANEL PM CDT leukemia not having achieved remissi on Status post stem cell transplant COMPLETE BLOOD COUNT Routine 07/25/2022 2:31 Acute myeloblasti c W/ DIFFERENTIAL PM CDT leukemia not having achieved remissi on Status post stem cell transplant HP CARMELO-ADDISON Routine 07/16/2022 VIRUS QUANTITATIVE PCR 10:56 AM CDT ANALYSIS INTERPRETATION AND REPORT FRACTIONATED BILIRUBIN Routine 07/16/2022 Acute myeloblastic Results for 10:56 AM CDT leukemia not having this pro cedure achieved remissi on are in the Status post stem cell result s transplant section. TOTAL PROTEIN Routine 07/16/2022 Acute myeloblastic Results for 10:56 AM CDT leukemia not having this pro cedure achieved remissi on are in the Status post stem cell result s transplant section. ASPARTATE Routine 07/16/2022 Acute myeloblastic Results f or AMINOTRANSFERASE 10:56 AM CDT leukemia not having this procedure achieved remissi on are in the Status post stem cell result s transplant section. ALANINE Routine 07/16/2022 Acute myeloblastic Results f or AMINOTRANSFERASE 10:56 AM CDT leukemia not having this procedure achieved remissi on are in the Status post stem cell result s transplant section. ALKALINE PHOSPHATASE Routine 07/16/2022 Acute myeloblastic R esults for 10:56 AM CDT leukemia not having this pro cedure achieved remissi on are in the Status post stem cell result s transplant section. ALBUMIN LEVEL Routine 07/16/2022 Acute myeloblastic Results for 10:56 AM CDT leukemia not having this pro cedure achieved remissi on are in the Status post stem cell result s transplant section. CALCIUM LEVEL TOTAL Routine 07/16/2022 Acute myeloblastic Re sults for 10:56 AM CDT leukemia not having this pro cedure achieved remissi on are in the Status post stem cell result s transplant section. .GLOMERULAR FILTRATION Routine 07/16/2022 Acute myeloblastic Results for RATE 10:56 AM CDT leukemia not having this pro cedure achieved remissi on are in the Status post stem cell result s transplant section. SERUM CREATININE Routine 07/16/2022 Acute myeloblastic Resul ts for 10:56 AM CDT leukemia not having this pro cedure achieved remissi on are in the Status post stem cell result s transplant section. ELECTROLYTE PANEL Routine 07/16/2022 Acute myeloblastic Resu lts for 10:56 AM CDT leukemia not having this pro cedure achieved remissi on are in the Status post stem cell result s transplant section. BLOOD UREA NITROGEN Routine 07/16/2022 Acute myeloblastic Re sults for 10:56 AM CDT leukemia not having this pro cedure achieved remissi on are in the Status post stem cell result s transplant section. GLUCOSE LEVEL Routine 07/16/2022 Acute myeloblastic Results for 10:56 AM CDT leukemia not having this pro cedure achieved remissi on are in the Status post stem cell result s transplant section. MANUAL DIFFERENTIAL Routine 07/16/2022 Acute myeloblastic Re sults for 10:56 AM CDT leukemia not having this pro cedure achieved remissi on are in the Status post stem cell result s transplant section. Results CBC Routine 07/16/2022 Acute myeloblastic Results f or 10:56 AM CDT leukemia not having this pro cedure achieved remissi on are in the Status post stem cell result s transplant section. LIPID PANEL Routine 07/16/2022 Acute myeloblastic Results f or 10:56 AM CDT leukemia not having this pro cedure achieved remissi on are in the Status post stem cell result s transplant section. FREE THYROXINE Routine 07/16/2022 Acute myeloblastic Results for 10:56 AM CDT leukemia not having this pro cedure achieved remissi on are in the Status post stem cell result s transplant section. THYROID STIMULATING Routine 07/16/2022 Acute myeloblastic Re sults for HORMONE 10:56 AM CDT leukemia not having this pro cedure achieved remissi on are in the Status post stem cell result s transplant section. VITAMIN D 25 HYDROXY Routine 07/16/2022 Acute myeloblastic R esults for LEVEL 10:56 AM CDT leukemia not having this pro cedure achieved remissi on are in the Status post stem cell result s transplant section. HP CARMELO-ADDISON Routine 07/16/2022 Acute myeloblastic Res ults for VIRUS QUANTITATIVE PCR 10:56 AM CDT leukemia not havin g this procedure ANALYSIS COLLECTION, achieved re mission are in the BLOOD Status post stem cell result s transplant section. URIC ACID Routine 07/16/2022 Acute myeloblastic Results f or 10:56 AM CDT leukemia not having this pro cedure achieved remissi on are in the Status post stem cell result s transplant section. MAGNESIUM LEVEL Routine 07/16/2022 Acute myeloblastic Result s for 10:56 AM CDT leukemia not having this pro cedure achieved remissi on are in the Status post stem cell result s transplant section. PHOSPHORUS LEVEL Routine 07/16/2022 Acute myeloblastic Resul ts for 10:56 AM CDT leukemia not having this pro cedure achieved remissi on are in the Status post stem cell result s transplant section. PROTHROMBIN TIME Routine 07/16/2022 Acute myeloblastic Resul ts for 10:56 AM CDT leukemia not having this pro cedure achieved remissi on are in the Status post stem cell result s transplant section. TACROLIMUS LEVEL Routine 07/16/2022 Acute myeloblastic Resul ts for 10:56 AM CDT leukemia not having this pro cedure achieved remissi on are in the Status post stem cell result s transplant section. LACTATE DEHYDROGENASE Routine 07/16/2022 Acute myeloblastic Results for 10:56 AM CDT leukemia not having this pro cedure achieved remissi on are in the Status post stem cell result s transplant section. COMPREHENSIVE Routine 07/16/2022 Acute myeloblastic METABOLIC PANEL 10:56 AM CDT leukemia not having achieved remissi on Status post stem cell transplant COMPLETE BLOOD COUNT Routine 07/16/2022 Acute myeloblastic W/ DIFFERENTIAL 10:56 AM CDT leukemia not having achieved remissi on Status post stem cell transplant CMV QUANT PCR Routine 07/16/2022 Acute myeloblastic Results for 10:56 AM CDT leukemia not having this pro cedure achieved remissi on are in the Status post stem cell result s transplant section. MUSIC JOURNALIST VIDEOSTROBOSCOPY Routine 07/11/2022 Hoarseness Results for 12:39 PM CDT this procedure are in the results section. ECHOCARDIOGRAM 2D Routine 06/20/2022 2:16 Supraventricular Res ults for COMPLETE W CONTRAST PM CDT tachycardia this pro cedure are in the results section. 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 TMP INTERPRETATION Routine 05/28/2022 Results f or ANTIBODY SCREEN 12:58 PM CDT this procedu re NEGATIVE are in the results section. ANTIBODY SCREEN Routine 05/28/2022 Acute myeloblastic Result s for 12:58 PM CDT leukemia not having this pro cedure achieved remissi on are in the Status post stem cell result s transplant section. ABORH Routine 05/28/2022 Acute myeloblastic Results f or 12:58 PM CDT leukemia not having this pro cedure achieved remissi on are in the Status post stem cell result s transplant section. FRACTIONATED BILIRUBIN Routine 05/28/2022 Acute myeloblastic Results for 12:58 PM CDT leukemia not having this pro cedure achieved remissi on are in the Status post stem cell result s transplant section. TOTAL PROTEIN Routine 05/28/2022 Acute myeloblastic Results for 12:58 PM CDT leukemia not having this pro cedure achieved remissi on are in the Status post stem cell result s transplant section. ASPARTATE Routine 05/28/2022 Acute myeloblastic Results f or AMINOTRANSFERASE 12:58 PM CDT leukemia not having this procedure achieved remissi on are in the Status post stem cell result s transplant section. ALANINE Routine 05/28/2022 Acute myeloblastic Results f or AMINOTRANSFERASE 12:58 PM CDT leukemia not having this procedure achieved remissi on are in the Status post stem cell result s transplant section. ALKALINE PHOSPHATASE Routine 05/28/2022 Acute myeloblastic R esults for 12:58 PM CDT leukemia not having this pro cedure achieved remissi on are in the Status post stem cell result s transplant section. ALBUMIN LEVEL Routine 05/28/2022 Acute myeloblastic Results for 12:58 PM CDT leukemia not having this pro cedure achieved remissi on are in the Status post stem cell result s transplant section. CALCIUM LEVEL TOTAL Routine 05/28/2022 Acute myeloblastic Re sults for 12:58 PM CDT leukemia not having this pro cedure achieved remissi on are in the Status post stem cell result s transplant section. .GLOMERULAR FILTRATION Routine 05/28/2022 Acute myeloblastic Results for RATE 12:58 PM CDT leukemia not having this pro cedure achieved remissi on are in the Status post stem cell result s transplant section. SERUM CREATININE Routine 05/28/2022 Acute myeloblastic Resul ts for 12:58 PM CDT leukemia not having this pro cedure achieved remissi on are in the Status post stem cell result s transplant section. ELECTROLYTE PANEL Routine 05/28/2022 Acute myeloblastic Resu lts for 12:58 PM CDT leukemia not having this pro cedure achieved remissi on are in the Status post stem cell result s transplant section. BLOOD UREA NITROGEN Routine 05/28/2022 Acute myeloblastic Re sults for 12:58 PM CDT leukemia not having this pro cedure achieved remissi on are in the Status post stem cell result s transplant section. GLUCOSE LEVEL Routine 05/28/2022 Acute myeloblastic Results for 12:58 PM CDT leukemia not having this pro cedure achieved remissi on are in the Status post stem cell result s transplant section. MANUAL DIFFERENTIAL Routine 05/28/2022 Acute myeloblastic Re sults for 12:58 PM CDT leukemia not having this pro cedure achieved remissi on are in the Status post stem cell result s transplant section. Results CBC Routine 05/28/2022 Acute myeloblastic Results f or 12:58 PM CDT leukemia not having this pro cedure achieved remissi on are in the Status post stem cell result s transplant section. TACROLIMUS LEVEL Routine 05/28/2022 Acute myeloblastic Resul ts for 12:58 PM CDT leukemia not having this pro cedure achieved remissi on are in the Status post stem cell result s transplant section. CMV QUANT PCR Routine 05/28/2022 Acute myeloblastic Results for 12:58 PM CDT leukemia not having this pro cedure achieved remissi on are in the Status post stem cell result s transplant section. MAGNESIUM LEVEL Routine 05/28/2022 Acute myeloblastic Result s for 12:58 PM CDT leukemia not having this pro cedure achieved remissi on are in the Status post stem cell result s transplant section. LACTATE DEHYDROGENASE Routine 05/28/2022 Acute myeloblastic Results for 12:58 PM CDT leukemia not having this pro cedure achieved remissi on are in the Status post stem cell result s transplant section. URIC ACID Routine 05/28/2022 Acute myeloblastic Results f or 12:58 PM CDT leukemia not having this pro cedure achieved remissi on are in the Status post stem cell result s transplant section. PHOSPHORUS LEVEL Routine 05/28/2022 Acute myeloblastic Resul ts for 12:58 PM CDT leukemia not having this pro cedure achieved remissi on are in the Status post stem cell result s transplant section. COMPREHENSIVE Routine 05/28/2022 Acute myeloblastic METABOLIC PANEL 12:58 PM CDT leukemia not having achieved remissi on Status post stem cell transplant TYPE AND SCREEN Routine 05/28/2022 Acute myeloblastic 12:58 PM CDT leukemia not having achieved remissi on Status post stem cell transplant COMPLETE BLOOD COUNT Routine 05/28/2022 Acute myeloblastic W/ DIFFERENTIAL 12:58 PM CDT leukemia not having achieved remissi on Status post stem cell transplant EKG, 12-LEAD Routine 05/24/2022 Supraventricular (SCHEDULED) tachycardia TMP INTERPRETATION Routine 03/14/2022 Results f or ANTIBODY SCREEN 12:18 PM CDT this procedu re NEGATIVE are in the results section. CLOT EXPIRATION DATE Routine 03/14/2022 Results for 12:18 PM CDT this procedure are in the results section. GARY JAIME CARMELO-ADDISON Routine 03/14/2022 VIRUS QUANTITATIVE PCR 12:18 PM CDT ANALYSIS INTERPRETATION AND REPORT ANTIBODY SCREEN Routine 03/14/2022 Acute myeloblastic Result s for 12:18 PM CDT leukemia not having this pro cedure achieved remissi on are in the Status post stem cell result s transplant section. Xpmkq-hobuir-jtre disease, not otherwise specified ABORH Routine 03/14/2022 Acute myeloblastic Results f or 12:18 PM CDT leukemia not having this pro cedure achieved remissi on are in the Status post stem cell result s transplant section. Hxsjr-gjntdl-vwrp disease, not otherwise specified FRACTIONATED BILIRUBIN Routine 03/14/2022 Acute myeloblastic Results for 12:18 PM CDT leukemia not having this pro cedure achieved remissi on are in the Status post stem cell result s transplant section. Ibtjw-ktledn-fyae disease, not otherwise specified TOTAL PROTEIN Routine 03/14/2022 Acute myeloblastic Results for 12:18 PM CDT leukemia not having this pro cedure achieved remissi on are in the Status post stem cell result s transplant section. Vflxu-fidjgv-leux disease, not otherwise specified ASPARTATE Routine 03/14/2022 Acute myeloblastic Results f or AMINOTRANSFERASE 12:18 PM CDT leukemia not having this procedure achieved remissi on are in the Status post stem cell result s transplant section. Ytwwg-lopiym-vyyv disease, not otherwise specified ALANINE Routine 03/14/2022 Acute myeloblastic Results f or AMINOTRANSFERASE 12:18 PM CDT leukemia not having this procedure achieved remissi on are in the Status post stem cell result s transplant section. Tfmvr-iphjum-udlj disease, not otherwise specified ALKALINE PHOSPHATASE Routine 03/14/2022 Acute myeloblastic R esults for 12:18 PM CDT leukemia not having this pro cedure achieved remissi on are in the Status post stem cell result s transplant section. Jnxud-mkwiwo-tcot disease, not otherwise specified ALBUMIN LEVEL Routine 03/14/2022 Acute myeloblastic Results for 12:18 PM CDT leukemia not having this pro cedure achieved remissi on are in the Status post stem cell result s transplant section. Kengh-xtpbtx-toaw disease, not otherwise specified CALCIUM LEVEL TOTAL Routine 03/14/2022 Acute myeloblastic Re sults for 12:18 PM CDT leukemia not having this pro cedure achieved remissi on are in the Status post stem cell result s transplant section. Cujvy-tcseob-dptg disease, not otherwise specified .GLOMERULAR FILTRATION Routine 03/14/2022 Acute myeloblastic Results for RATE 12:18 PM CDT leukemia not having this pro cedure achieved remissi on are in the Status post stem cell result s transplant section. Vcnrw-srmpvq-acng disease, not otherwise specified SERUM CREATININE Routine 03/14/2022 Acute myeloblastic Resul ts for 12:18 PM CDT leukemia not having this pro cedure achieved remissi on are in the Status post stem cell result s transplant section. Sljtw-ohahbm-moiu disease, not otherwise specified ELECTROLYTE PANEL Routine 03/14/2022 Acute myeloblastic Resu lts for 12:18 PM CDT leukemia not having this pro cedure achieved remissi on are in the Status post stem cell result s transplant section. 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 Xgrek-hngnnu-ugte disease, not otherwise specified TACROLIMUS LEVEL Routine 03/14/2022 Acute myeloblastic Resul ts for 12:18 PM CDT leukemia not having this pro cedure achieved remissi on are in the Status post stem cell result s transplant section. 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 Ogscs-fywmqh-nlcw disease, not otherwise specified GARY JAIME CARMELO-ADDISON Routine 03/14/2022 Acute myeloblastic Res ults for VIRUS QUANTITATIVE PCR 12:18 PM CDT leukemia not havin g this procedure ANALYSIS COLLECTION, achieved re mission are in the BLOOD Status post stem cell result s transplant section. Xbtno-jpxutn-igse disease, not otherwise specified MAGNESIUM LEVEL Routine 03/14/2022 Acute myeloblastic Result s for 12:18 PM CDT leukemia not having this pro cedure achieved remissi on are in the Status post stem cell result s transplant section. 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 Ftmzr-xxmcgz-zgeb disease, not otherwise specified URIC ACID Routine 03/14/2022 Acute myeloblastic Results f or 12:18 PM CDT leukemia not having this pro cedure achieved remissi on are in the Status post stem cell result s transplant section. Btgcj-uimxlk-swcb disease, not otherwise specified PHOSPHORUS LEVEL Routine 03/14/2022 Acute myeloblastic Resul ts for 12:18 PM CDT leukemia not having this pro cedure achieved remissi on are in the Status post stem cell result s transplant section. 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 Teabc-jrqgug-kujz disease, not otherwise specified SPIROMETRY W/O Routine 02/21/2022 1:22 Dyspnea, not otherwise Results for DILATORS, DLCO AND PM CDT specified this proc edure BODY PLETHSMOGRAPHIC are in the LUNG VOLUMES results section. CLOT EXPIRATION DATE Routine 02/21/2022 Results for 12:25 PM CDT this procedure are in the results section. TMP INTERPRETATION Routine 02/21/2022 Results f or ANTIBODY SCREEN 12:25 PM CDT this procedu re NEGATIVE are in the results section. GARY JAIME CARMELO-ADDISON Routine 02/21/2022 VIRUS QUANTITATIVE PCR 12:25 PM CDT ANALYSIS INTERPRETATION AND REPORT ANTIBODY SCREEN Routine 02/21/2022 Acute myeloblastic Result s for 12:25 PM CDT leukemia not having this pro cedure achieved remissi on are in the Status post stem cell result s transplant section. Zwtuk-gqgkoa-ijrd disease, not otherwise specified ABORH Routine 02/21/2022 Acute myeloblastic Results f or 12:25 PM CDT leukemia not having this pro cedure achieved remissi on are in the Status post stem cell result s transplant section. Lgafb-euvlrx-cwee disease, not otherwise specified FRACTIONATED BILIRUBIN Routine 02/21/2022 Acute myeloblastic Results for 12:25 PM CDT leukemia not having this pro cedure achieved remissi on are in the Status post stem cell result s transplant section. Dzhwk-nbjneq-abyy disease, not otherwise specified TOTAL PROTEIN Routine 02/21/2022 Acute myeloblastic Results for 12:25 PM CDT leukemia not having this pro cedure achieved remissi on are in the Status post stem cell result s transplant section. Cdxuq-vqnlqx-niov disease, not otherwise specified ASPARTATE Routine 02/21/2022 Acute myeloblastic Results f or AMINOTRANSFERASE 12:25 PM CDT leukemia not having this procedure achieved remissi on are in the Status post stem cell result s transplant section. Wpopm-cykgqx-htad disease, not otherwise specified ALANINE Routine 02/21/2022 Acute myeloblastic Results f or AMINOTRANSFERASE 12:25 PM CDT leukemia not having this procedure achieved remissi on are in the Status post stem cell result s transplant section. Vyfqb-bpttrc-imxb disease, not otherwise specified ALKALINE PHOSPHATASE Routine 02/21/2022 Acute myeloblastic R esults for 12:25 PM CDT leukemia not having this pro cedure achieved remissi on are in the Status post stem cell result s transplant section. Rbhhf-gkzzhc-othw disease, not otherwise specified ALBUMIN LEVEL Routine 02/21/2022 Acute myeloblastic Results for 12:25 PM CDT leukemia not having this pro cedure achieved remissi on are in the Status post stem cell result s transplant section. Mkzmx-rkqvma-dccc disease, not otherwise specified CALCIUM LEVEL TOTAL Routine 02/21/2022 Acute myeloblastic Re sults for 12:25 PM CDT leukemia not having this pro cedure achieved remissi on are in the Status post stem cell result s transplant section. Lechx-fhqyhf-krmp disease, not otherwise specified .GLOMERULAR FILTRATION Routine 02/21/2022 Acute myeloblastic Results for RATE 12:25 PM CDT leukemia not having this pro cedure achieved remissi on are in the Status post stem cell result s transplant section. Jcmxw-lhexnj-ikyn disease, not otherwise specified SERUM CREATININE Routine 02/21/2022 Acute myeloblastic Resul ts for 12:25 PM CDT leukemia not having this pro cedure achieved remissi on are in the Status post stem cell result s transplant section. Jilst-domyqy-ocdx disease, not otherwise specified ELECTROLYTE PANEL Routine 02/21/2022 Acute myeloblastic Resu lts for 12:25 PM CDT leukemia not having this pro cedure achieved remissi on are in the Status post stem cell result s transplant section. Qajgj-vyvuiq-ebkl disease, not otherwise specified BLOOD UREA NITROGEN Routine 02/21/2022 Acute myeloblastic Re sults for 12:25 PM CDT leukemia not having this pro cedure achieved remissi on are in the Status post stem cell result s transplant section. Nefft-borope-bdme disease, not otherwise specified GLUCOSE LEVEL Routine 02/21/2022 Acute myeloblastic Results for 12:25 PM CDT leukemia not having this pro cedure achieved remissi on are in the Status post stem cell result s transplant section. Kfbpb-civhhs-fcgy disease, not otherwise specified MANUAL DIFFERENTIAL Routine 02/21/2022 Acute myeloblastic Re sults for 12:25 PM CDT leukemia not having this pro cedure achieved remissi on are in the Status post stem cell result s transplant section. Zdjwf-oqyfrm-srns disease, not otherwise specified Results CBC Routine 02/21/2022 Acute myeloblastic Results f or 12:25 PM CDT leukemia not having this pro cedure achieved remissi on are in the Status post stem cell result s transplant section. Vhhoh-kwimkl-cbbn disease, not otherwise specified TACROLIMUS LEVEL Routine 02/21/2022 Acute myeloblastic Resul ts for 12:25 PM CDT leukemia not having this pro cedure achieved remissi on are in the Status post stem cell result s transplant section. Ochny-qsjenl-bumg disease, not otherwise specified CMV QUANT PCR Routine 02/21/2022 Acute myeloblastic Results for 12:25 PM CDT leukemia not having this pro cedure achieved remissi on are in the Status post stem cell result s transplant section. Mnauw-wqcbhl-zrsn disease, not otherwise specified GARY JAIME CARMELO-ADDISON Routine 02/21/2022 Acute myeloblastic Res ults for VIRUS QUANTITATIVE PCR 12:25 PM CDT leukemia not salome soria this procedure ANALYSIS COLLECTION, achieved re mission are in the BLOOD Status post stem cell result s transplant section. Ddlti-ycpahh-jeue disease, not otherwise specified MAGNESIUM LEVEL Routine 02/21/2022 Acute myeloblastic Result s for 12:25 PM CDT leukemia not having this pro cedure achieved remissi on are in the Status post stem cell result s transplant section. Kauvl-ttagbg-cexn disease, not otherwise specified LACTATE DEHYDROGENASE Routine 02/21/2022 Acute myeloblastic Results for 12:25 PM CDT leukemia not having this pro cedure achieved remissi on are in the Status post stem cell result s transplant section. Syicv-vgjlaq-lldv disease, not otherwise specified URIC ACID Routine 02/21/2022 Acute myeloblastic Results f or 12:25 PM CDT leukemia not having this pro cedure achieved remissi on are in the Status post stem cell result s transplant section. Cgeck-rzckrk-egjx disease, not otherwise specified PHOSPHORUS LEVEL Routine 02/21/2022 Acute myeloblastic Resul ts for 12:25 PM CDT leukemia not having this pro cedure achieved remissi on are in the Status post stem cell result s transplant section. Hyijl-ixvwkp-hauc disease, not otherwise specified COMPREHENSIVE Routine 02/21/2022 Acute myeloblastic METABOLIC PANEL 12:25 PM CDT leukemia not having achieved remissi on Status post stem cell transplant Poeae-cpnlma-iujf disease, not otherwise specified TYPE AND SCREEN Routine 02/21/2022 Acute myeloblastic 12:25 PM CDT leukemia not having achieved remissi on Status post stem cell transplant Ktwhi-uosiht-mirl disease, not otherwise specified COMPLETE BLOOD COUNT Routine 02/21/2022 Acute myeloblastic W/ DIFFERENTIAL 12:25 PM CDT leukemia not having achieved remissi on Status post stem cell transplant Bbynk-nslnur-mvls disease, not otherwise specified ADENOVIRUS Routine 02/21/2022 Acute myeloblastic Results f or QUANTITATIVE, PLASMA 12:25 PM CDT leukemia not having this procedure achieved remissi on are in the Status post stem cell result s transplant section. Yxbyt-megqjt-hwpc disease, not otherwise specified HHV6 QUANT, PLASMA Routine 02/21/2022 Acute myeloblastic Res ults for 12:25 PM CDT leukemia not having this pro cedure achieved remissi on are in the Status post stem cell result s transplant section. Oapmj-ngffgr-ttph disease, not otherwise specified GENERAL LABORATORY ADD STAT 01/24/2022 2:59 Acute myeloblas tic Results for ON TEST PM CDT leukemia not having this pro cedure achieved remissi on are in the Status post stem cell result s transplant section. Ytihi-tjqkov-ijdj disease, not otherwise specified TACROLIMUS LEVEL Routine 01/24/2022 1:02 Results for PM CDT this procedure are in the results section. TMP INTERPRETATION Routine 01/24/2022 1:02 Result s for ANTIBODY SCREEN PM CDT this procedu re NEGATIVE are in the results section. CLOT EXPIRATION DATE Routine 01/24/2022 1:02 Resu lts for PM CDT this procedure are in the results section. MANUAL DIFFERENTIAL Routine 01/24/2022 1:02 Acute myeloblastic Results for PM CDT leukemia not having this pro cedure achieved remissi on are in the Status post stem cell result s transplant section. Bxoel-vykigv-bfhi disease, not otherwise specified ANTIBODY SCREEN Routine 01/24/2022 1:02 Acute myeloblastic Res ults for PM CDT leukemia not having this pro cedure achieved remissi on are in the Status post stem cell result s transplant section. Volzn-sqocmv-mixl disease, not otherwise specified ABORH Routine 01/24/2022 1:02 Acute myeloblastic Result s for PM CDT leukemia not having this pro cedure achieved remissi on are in the Status post stem cell result s transplant section. Miaho-mhltqq-odnw disease, not otherwise specified FRACTIONATED BILIRUBIN Routine 01/24/2022 1:02 Acute myeloblas tic Results for PM CDT leukemia not having this pro cedure achieved remissi on are in the Status post stem cell result s transplant section. Hnmps-xbaeir-idxw disease, not otherwise specified TOTAL PROTEIN Routine 01/24/2022 1:02 Acute myeloblastic Resul ts for PM CDT leukemia not having this pro cedure achieved remissi on are in the Status post stem cell result s transplant section. Uilsz-tcvmhv-nvul disease, not otherwise specified ASPARTATE Routine 01/24/2022 1:02 Acute myeloblastic Result s for AMINOTRANSFERASE PM CDT leukemia not having this procedure achieved remissi on are in the Status post stem cell result s transplant section. Ahmfl-zllmww-oefu disease, not otherwise specified ALANINE Routine 01/24/2022 1:02 Acute myeloblastic Result s for AMINOTRANSFERASE PM CDT leukemia not having this procedure achieved remissi on are in the Status post stem cell result s transplant section. Rtags-oacght-vxbl disease, not otherwise specified ALKALINE PHOSPHATASE Routine 01/24/2022 1:02 Acute myeloblasti c Results for PM CDT leukemia not having this pro cedure achieved remissi on are in the Status post stem cell result s transplant section. Wjsmh-ifdswp-macc disease, not otherwise specified ALBUMIN LEVEL Routine 01/24/2022 1:02 Acute myeloblastic Resul ts for PM CDT leukemia not having this pro cedure achieved remissi on are in the Status post stem cell result s transplant section. Ugwak-yzdurs-wxvg disease, not otherwise specified CALCIUM LEVEL TOTAL Routine 01/24/2022 1:02 Acute myeloblastic Results for PM CDT leukemia not having this pro cedure achieved remissi on are in the Status post stem cell result s transplant section. Orqmn-gnommt-kagj disease, not otherwise specified .GLOMERULAR FILTRATION Routine 01/24/2022 1:02 Acute myeloblas tic Results for RATE PM CDT leukemia not having this pro cedure achieved remissi on are in the Status post stem cell result s transplant section. Xaliv-rwpyhc-phgt disease, not otherwise specified SERUM CREATININE Routine 01/24/2022 1:02 Acute myeloblastic Re sults for PM CDT leukemia not having this pro cedure achieved remissi on are in the Status post stem cell result s transplant section. Crjvy-hzadrh-abis disease, not otherwise specified ELECTROLYTE PANEL Routine 01/24/2022 1:02 Acute myeloblastic R esults for PM CDT leukemia not having this pro cedure achieved remissi on are in the Status post stem cell result s transplant section. Vyptb-sopqgh-gnaq disease, not otherwise specified BLOOD UREA NITROGEN Routine 01/24/2022 1:02 Acute myeloblastic Results for PM CDT leukemia not having this pro cedure achieved remissi on are in the Status post stem cell result s transplant section. Uylbe-afjagc-xfng disease, not otherwise specified GLUCOSE LEVEL Routine 01/24/2022 1:02 Acute myeloblastic Resul ts for PM CDT leukemia not having this pro cedure achieved remissi on are in the Status post stem cell result s transplant section. Kfqkh-iiphci-zlyu disease, not otherwise specified Results CBC Routine 01/24/2022 1:02 Acute myeloblastic Result s for PM CDT leukemia not having this pro cedure achieved remissi on are in the Status post stem cell result s transplant section. Tjzfq-stjtbg-eeuf disease, not otherwise specified MAGNESIUM LEVEL Routine 01/24/2022 1:02 Acute myeloblastic Res ults for PM CDT leukemia not having this pro cedure achieved remissi on are in the Status post stem cell result s transplant section. Qoeyq-liesvo-nebv disease, not otherwise specified LACTATE DEHYDROGENASE Routine 01/24/2022 1:02 Acute myeloblast ic Results for PM CDT leukemia not having this pro cedure achieved remissi on are in the Status post stem cell result s transplant section. Khfhx-uolcro-ipkg disease, not otherwise specified URIC ACID Routine 01/24/2022 1:02 Acute myeloblastic Result s for PM CDT leukemia not having this pro cedure achieved remissi on are in the Status post stem cell result s transplant section. Ffddq-rmprgf-txxf disease, not otherwise specified PHOSPHORUS LEVEL Routine 01/24/2022 1:02 Acute myeloblastic Re sults for PM CDT leukemia not having this pro cedure achieved remissi on are in the Status post stem cell result s transplant section. Lhixj-xdaczr-phiv disease, not otherwise specified COMPREHENSIVE Routine 01/24/2022 1:02 Acute myeloblastic METABOLIC PANEL PM CDT leukemia not having achieved remissi on Status post stem cell transplant Jxwqy-oivzxz-onfp disease, not otherwise specified TYPE AND SCREEN Routine 01/24/2022 1:02 Acute myeloblastic PM CDT leukemia not having achieved remissi on Status post stem cell transplant Omtxz-qbybgk-yqfk disease, not otherwise specified COMPLETE BLOOD COUNT Routine 01/24/2022 1:02 Acute myeloblasti c W/ DIFFERENTIAL PM CDT leukemia not having achieved remissi on Status post stem cell transplant Gbtlf-qjoewf-jtas disease, not otherwise specified CLOT EXPIRATION DATE Routine 01/22/2022 5:38 Resu lts for AM CDT this procedure are in the results section. TMP INTERPRETATION Routine 01/22/2022 5:38 Result s for ANTIBODY SCREEN AM CDT this procedu re NEGATIVE are in the results section. MANUAL DIFFERENTIAL AM 01/22/2022 5:38 Resul ts for AM CDT this procedure are in the results section. Results CBC AM 01/22/2022 5:38 Results for AM CDT this procedure are in the results section. CALCIUM LEVEL TOTAL Routine 01/22/2022 5:38 Resul ts for AM CDT this procedure are in the results section. .GLOMERULAR FILTRATION Routine 01/22/2022 5:38 Re sults for RATE AM CDT this procedure are in the results section. SERUM CREATININE Routine 01/22/2022 5:38 Results for AM CDT this procedure are in the results section. ELECTROLYTE PANEL Routine 01/22/2022 5:38 Results for AM CDT this procedure are in the results section. BLOOD UREA NITROGEN Routine 01/22/2022 5:38 Resul ts for AM CDT this procedure are in the results section. GLUCOSE LEVEL Routine 01/22/2022 5:38 Results for AM CDT this procedure are in the results section. ANTIBODY SCREEN Routine 01/22/2022 5:38 Results f or AM CDT this procedure are in the results section. ABORH Routine 01/22/2022 5:38 Results for AM CDT this procedure are in the results section. TYPE AND SCREEN Routine 01/22/2022 5:38 AM CDT BASIC METABOLIC PANEL, Routine 01/22/2022 5:38 CALCIUM TOTAL AM CDT COMPLETE BLOOD COUNT AM 01/22/2022 5:38 W/ DIFFERENTIAL AM CDT FRACTIONATED BILIRUBIN AM 01/21/2022 6:19 Re sults for AM CDT this procedure are in the results section. TOTAL PROTEIN AM 01/21/2022 6:19 Results for AM CDT this procedure are in the results section. ASPARTATE AM 01/21/2022 6:19 Results for AMINOTRANSFERASE AM CDT this proced ure are in the results section. ALANINE AM 01/21/2022 6:19 Results for AMINOTRANSFERASE AM CDT this proced ure are in the results section. ALKALINE PHOSPHATASE AM 01/21/2022 6:19 Resu lts for AM CDT this procedure are in the results section. ALBUMIN LEVEL AM 01/21/2022 6:19 Results for AM CDT this procedure are in the results section. CALCIUM LEVEL TOTAL AM 01/21/2022 6:19 Resul ts for AM CDT this procedure are in the results section. .GLOMERULAR FILTRATION AM 01/21/2022 6:19 Re sults for RATE AM CDT this procedure are in the results section. SERUM CREATININE AM 01/21/2022 6:19 Results for AM CDT this procedure are in the results section. ELECTROLYTE PANEL AM 01/21/2022 6:19 Results for AM CDT this procedure are in the results section. BLOOD UREA NITROGEN AM 01/21/2022 6:19 Resul ts for AM CDT this procedure are in the results section. GLUCOSE LEVEL AM 01/21/2022 6:19 Results for AM CDT this procedure are in the results section. MANUAL DIFFERENTIAL AM 01/21/2022 6:19 Resul ts for AM CDT this procedure are in the results section. Results CBC AM 01/21/2022 6:19 Results for AM CDT this procedure are in the results section. TACROLIMUS LEVEL AM 01/21/2022 6:19 Results for AM CDT this procedure are in the results section. CMV QUANT PCR AM 01/21/2022 6:19 Results for AM CDT this procedure are in the results section. LACTATE DEHYDROGENASE AM 01/21/2022 6:19 Res ults for AM CDT this procedure are in the results section. URIC ACID AM 01/21/2022 6:19 Results for AM CDT this procedure are in the results section. MAGNESIUM LEVEL AM 01/21/2022 6:19 Results f or AM CDT this procedure are in the results section. PHOSPHORUS LEVEL AM 01/21/2022 6:19 Results for AM CDT this procedure are in the results section. COMPREHENSIVE AM 01/21/2022 6:19 METABOLIC PANEL AM CDT COMPLETE BLOOD COUNT AM 01/21/2022 6:19 W/ DIFFERENTIAL AM CDT BLOODCULTURE AM 01/21/2022 6:19 Results for AM CDT this procedure are in the results section. EKG, 12-LEAD Routine 01/21/2022 (PORTABLE) MANUAL DIFFERENTIAL AM 01/20/2022 5:23 Resul ts for AM CDT this procedure are in the results section. Results CBC AM 01/20/2022 5:23 Results for AM CDT this procedure are in the results section. CALCIUM LEVEL TOTAL Routine 01/20/2022 5:23 Resul ts for AM CDT this procedure are in the results section. .GLOMERULAR FILTRATION Routine 01/20/2022 5:23 Re sults for RATE AM CDT this procedure are in the results section. SERUM CREATININE Routine 01/20/2022 5:23 Results for AM CDT this procedure are in the results section. ELECTROLYTE PANEL Routine 01/20/2022 5:23 Results for AM CDT this procedure are in the results section. BLOOD UREA NITROGEN Routine 01/20/2022 5:23 Resul ts for AM CDT this procedure are in the results section. GLUCOSE LEVEL Routine 01/20/2022 5:23 Results for AM CDT this procedure are in the results section. VANCOMYCIN LEVEL Timed Study 01/20/2022 5:23 Results for TROUGH AM CDT this procedure are in the results section. BASIC METABOLIC PANEL, Routine 01/20/2022 5:23 CALCIUM TOTAL AM CDT COMPLETE BLOOD COUNT AM 01/20/2022 5:23 W/ DIFFERENTIAL AM CDT BLOODCULTURE AM 01/20/2022 5:23 Results for AM CDT this procedure are in the results section. VRE CULTURE Routine 01/19/2022 6:04 Results for PM CDT this procedure are in the results section. TMP INTERPRETATION Routine 01/19/2022 1:14 Result s for ANTIBODY SCREEN AM CDT this procedu re NEGATIVE are in the results section. CLOT EXPIRATION DATE Routine 01/19/2022 1:14 Resu lts for AM CDT this procedure are in the results section. MANUAL DIFFERENTIAL AM 01/19/2022 1:14 Resul ts for AM CDT this procedure are in the results section. Results CBC AM 01/19/2022 1:14 Results for AM CDT this procedure are in the results section. CALCIUM LEVEL TOTAL Routine 01/19/2022 1:14 Resul ts for AM CDT this procedure are in the results section. .GLOMERULAR FILTRATION Routine 01/19/2022 1:14 Re sults for RATE AM CDT this procedure are in the results section. SERUM CREATININE Routine 01/19/2022 1:14 Results for AM CDT this procedure are in the results section. ELECTROLYTE PANEL Routine 01/19/2022 1:14 Results for AM CDT this procedure are in the results section. BLOOD UREA NITROGEN Routine 01/19/2022 1:14 Resul ts for AM CDT this procedure are in the results section. GLUCOSE LEVEL Routine 01/19/2022 1:14 Results for AM CDT this procedure are in the results section. ANTIBODY SCREEN Routine 01/19/2022 1:14 Results f or AM CDT this procedure are in the results section. ABORH Routine 01/19/2022 1:14 Results for AM CDT this procedure are in the results section. TYPE AND SCREEN Routine 01/19/2022 1:14 AM CDT BASIC METABOLIC PANEL, Routine 01/19/2022 1:14 CALCIUM TOTAL AM CDT COMPLETE BLOOD COUNT AM 01/19/2022 1:14 W/ DIFFERENTIAL AM CDT TOBRAMYCIN LEVEL Timed Study 01/19/2022 1:14 Results for RANDOM AM CDT this procedure are in the results section. BLOODCULTURE AM 01/19/2022 1:14 Results for AM CDT this procedure are in the results section. 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 CALCIUM LEVEL TOTAL Timed Study 01/18/2022 3:30 Resul ts for AM CDT this procedure are in the results section. .GLOMERULAR FILTRATION Timed Study 01/18/2022 3:30 Re sults for RATE AM CDT this procedure are in the results section. SERUM CREATININE Timed Study 01/18/2022 3:30 Results for AM CDT this procedure are in the results section. ELECTROLYTE PANEL Timed Study 01/18/2022 3:30 Results for AM CDT this procedure are in the results section. BLOOD UREA NITROGEN Timed Study 01/18/2022 3:30 Resul ts for AM CDT this procedure are in the results section. GLUCOSE LEVEL Timed Study 01/18/2022 3:30 Results for AM CDT this procedure are in the results section. MANUAL DIFFERENTIAL Timed Study 01/18/2022 3:30 Resul ts for AM CDT this procedure are in the results section. Results CBC Timed Study 01/18/2022 3:30 Results for AM CDT this procedure are in the results section. PHOSPHORUS LEVEL Timed Study 01/18/2022 3:30 Results for AM CDT this procedure are in the results section. MAGNESIUM LEVEL Timed Study 01/18/2022 3:30 Results f or AM CDT this procedure are in the results section. BASIC METABOLIC PANEL, Timed Study 01/18/2022 3:30 CALCIUM TOTAL AM CDT COMPLETE BLOOD COUNT Timed Study 01/18/2022 3:30 W/ DIFFERENTIAL AM CDT BLOODCULTURE Now 01/18/2022 3:30 Results for AM CDT this procedure are in the results section. CLOT EXPIRATION DATE Routine 01/18/2022 3:00 Resu lts for AM CDT this procedure are in the results section. TMP INTERPRETATION Routine 01/18/2022 3:00 Result s for ANTIBODY SCREEN AM CDT this procedu re NEGATIVE are in the results section. ANTIBODY SCREEN Routine 01/18/2022 3:00 Chronic Results f or AM CDT tydyn-cioraz-uluq this proce dure disease are in the Complication of stem results cell transplant section. ABORH Routine 01/18/2022 3:00 Chronic Results for AM CDT noozi-agxfcw-lvdl this proce dure disease are in the Complication of stem results cell transplant section. FRACTIONATED BILIRUBIN Routine 01/18/2022 3:00 Chronic Re sults for AM CDT kfqhe-svfahl-dtva this proce dure disease are in the Complication of stem results cell transplant section. TOTAL PROTEIN Routine 01/18/2022 3:00 Chronic Results for AM CDT bwpmb-jzvfvb-znuo this proce dure disease are in the Complication of stem results cell transplant section. ASPARTATE Routine 01/18/2022 3:00 Chronic Results for AMINOTRANSFERASE AM CDT pgqwt-tcxyvs-cjog this p rocedure disease are in the Complication of stem results cell transplant section. ALANINE Routine 01/18/2022 3:00 Chronic Results for AMINOTRANSFERASE AM CDT qnezh-svabhg-vwcb this p rocedure disease are in the Complication of stem results cell transplant section. ALKALINE PHOSPHATASE Routine 01/18/2022 3:00 Chronic Resu lts for AM CDT drvin-raikzo-cygz this proce dure disease are in the Complication of stem results cell transplant section. ALBUMIN LEVEL Routine 01/18/2022 3:00 Chronic Results for AM CDT hfexz-boyfuu-wmdv this proce dure disease are in the Complication of stem results cell transplant section. CALCIUM LEVEL TOTAL Routine 01/18/2022 3:00 Chronic Resul ts for AM CDT kbfgu-qkdsxq-mqvi this proce dure disease are in the Complication of stem results cell transplant section. .GLOMERULAR FILTRATION Routine 01/18/2022 3:00 Chronic Re sults for RATE AM CDT ipzkl-szodxa-mhjh this proce dure disease are in the Complication of stem results cell transplant section. SERUM CREATININE Routine 01/18/2022 3:00 Chronic Results for AM CDT gonqm-agjwbf-rzsd this proce dure disease are in the Complication of stem results cell transplant section. ELECTROLYTE PANEL Routine 01/18/2022 3:00 Chronic Results for AM CDT mszec-veztpi-kiea this proce dure disease are in the Complication of stem results cell transplant section. 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 GLUCOSE LEVEL Routine 01/18/2022 3:00 Chronic Results for AM CDT zlrun-sjcvkq-ruzh this proce dure disease are in the Complication of stem results cell transplant section. MANUAL DIFFERENTIAL Routine 01/18/2022 3:00 Chronic Resul ts for AM CDT murdq-zcozay-quzq this proce dure disease are in the Complication of stem results cell transplant section. Results CBC Routine 01/18/2022 3:00 Chronic Results for AM CDT zbcbz-qyvgxi-nbgz this proce dure disease are in the Complication of stem results cell transplant section. TYPE AND SCREEN Routine 01/18/2022 3:00 Chronic AM CDT sxgzl-nwkjqe-ilco disease Complication of stem cell transplant MAGNESIUM LEVEL Routine 01/18/2022 3:00 Chronic Results f or AM CDT iciyk-fbtzoy-qkpn this proce dure disease are in the Complication of stem results cell transplant section. COMPREHENSIVE Routine 01/18/2022 3:00 Chronic METABOLIC PANEL AM CDT umcgy-zrjalu-usfy disease Complication of stem cell transplant COMPLETE BLOOD COUNT Routine 01/18/2022 3:00 Chronic W/ DIFFERENTIAL AM CDT ukexh-gpaxpe-djxn disease Complication of stem cell transplant BLOODCULTURE Now 01/18/2022 3:00 Results for AM CDT this procedure are in the results section. URINALYSIS MICROSCOPIC Routine 01/17/2022 Resul ts for 11:07 PM CDT this procedure are in the results section. URINALYSIS WITH Now 01/17/2022 Results for MICROSCOPIC IF 11:07 PM CDT this procedur e INDICATED are in the results section. URINE CULTURE Now 01/17/2022 Results for 11:07 PM CDT this procedure are in the results section. POC VENOUS BLOOD GAS + Routine 01/17/2022 5:10 Re sults for LACTATE PM CDT this procedure are in the results section. XR CHEST 1 VW Routine 01/17/2022 5:00 Results for PM CDT this procedure are in the results section. BLOODCULTURE Now 01/17/2022 4:47 Results for PM CDT this procedure are in the results section. FRACTIONATED BILIRUBIN Now 01/17/2022 4:46 Re sults for PM CDT this procedure are in the results section. TOTAL PROTEIN Now 01/17/2022 Results for 4:46 PM CDT this procedure are in the results section. ASPARTATE Now 01/17/2022 4:46 Results for AMINOTRANSFERASE PM CDT this proced ure are in the results section. ALANINE Now 01/17/2022 4:46 Results for AMINOTRANSFERASE PM CDT this proced ure are in the results section. ALKALINE PHOSPHATASE Now 01/17/2022 4:46 Resu lts for PM CDT this procedure are in the results section. ALBUMIN LEVEL Now 01/17/2022 4:46 Results for PM CDT this procedure are in the results section. CALCIUM LEVEL TOTAL Now 01/17/2022 4:46 Resul ts for PM CDT this procedure are in the results section. .GLOMERULAR FILTRATION Now 01/17/2022 4:46 Re sults for RATE PM CDT this procedure are in the results section. SERUM CREATININE Now 01/17/2022 4:46 Results for PM CDT this procedure are in the results section. ELECTROLYTE PANEL Now 01/17/2022 4:46 Results for PM CDT this procedure are in the results section. BLOOD UREA NITROGEN Now 01/17/2022 4:46 Resul ts for PM CDT this procedure are in the results section. GLUCOSE LEVEL Now 01/17/2022 4:46 Results for PM CDT this procedure are in the results section. MANUAL DIFFERENTIAL STAT 01/17/2022 4:46 Resul ts for PM CDT this procedure are in the results section. Results CBC STAT 01/17/2022 4:46 Results for PM CDT this procedure are in the results section. PROCALCITONIN Now 01/17/2022 4:46 Results for PM CDT this procedure are in the results section. C REACTIVE PROTEIN Now 01/17/2022 4:46 Result s for PM CDT this procedure are in the results section. LACTATE DEHYDROGENASE Now 01/17/2022 4:46 Res ults for PM CDT this procedure are in the results section. PHOSPHORUS LEVEL Now 01/17/2022 4:46 Results for PM CDT this procedure are in the results section. MAGNESIUM LEVEL Now 01/17/2022 4:46 Results f or PM CDT this procedure are in the results section. COMPREHENSIVE Now 01/17/2022 4:46 METABOLIC PANEL PM CDT COMPLETE BLOOD COUNT Now 01/17/2022 4:46 W/ DIFFERENTIAL PM CDT RESPIRATORY VIRAL Now 01/17/2022 4:46 Results for MULTIPLEX PCR PANEL, PM CDT this pr ocedure NASOPHARYNGEAL SWAB are in t he results section. CT HEAD WO CONTRAST Routine 01/17/2022 4:28 Resul ts for PM CDT this procedure are in the results section. BLOODCULTURE Routine 01/17/2022 Chronic Results for 11:47 AM CDT mkxdy-wwvked-bcup this proce dure disease are in the Complication of stem results cell transplant section. CLOT EXPIRATION DATE Routine 01/17/2022 Results for 10:23 AM CDT this procedure are in the results section. TMP INTERPRETATION Routine 01/17/2022 Results f or ANTIBODY SCREEN 10:23 AM CDT this procedu re NEGATIVE are in the results section. 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 Cdkpe-anstxt-lwre disease, not otherwise specified ASPARTATE Routine 01/17/2022 Acute myeloblastic Results f or AMINOTRANSFERASE 10:23 AM CDT leukemia not having this procedure achieved remissi on are in the Status post stem cell result s transplant section. Vqwxe-mfacio-qvbd disease, not otherwise specified ALANINE Routine 01/17/2022 Acute myeloblastic Results f or AMINOTRANSFERASE 10:23 AM CDT leukemia not having this procedure achieved remissi on are in the Status post stem cell result s transplant section. Wpoen-kjqbdo-ujfs disease, not otherwise specified ALKALINE PHOSPHATASE Routine 01/17/2022 Acute myeloblastic R esults for 10:23 AM CDT leukemia not having this pro cedure achieved remissi on are in the Status post stem cell result s transplant section. 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 Bmtrw-ysrjrd-yzlu disease, not otherwise specified CALCIUM LEVEL TOTAL Routine 01/17/2022 Acute myeloblastic Re sults for 10:23 AM CDT leukemia not having this pro cedure achieved remissi on are in the Status post stem cell result s transplant section. 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 Jpluv-euytjt-yeut disease, not otherwise specified ELECTROLYTE PANEL Routine 01/17/2022 Acute myeloblastic Resu lts for 10:23 AM CDT leukemia not having this pro cedure achieved remissi on are in the Status post stem cell result s transplant section. Rhiyt-tzkadz-vpjm disease, not otherwise specified BLOOD UREA NITROGEN Routine 01/17/2022 Acute myeloblastic Re sults for 10:23 AM CDT leukemia not having this pro cedure achieved remissi on are in the Status post stem cell result s transplant section. 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 Zukbl-vvrdkp-wrfu disease, not otherwise specified MANUAL DIFFERENTIAL Routine 01/17/2022 Acute myeloblastic Re sults for 10:23 AM CDT leukemia not having this pro cedure achieved remissi on are in the Status post stem cell result s transplant section. Gjako-jmtauf-stoe disease, not otherwise specified Results CBC Routine 01/17/2022 Acute myeloblastic Results f or 10:23 AM CDT leukemia not having this pro cedure achieved remissi on are in the Status post stem cell result s transplant section. Qicvy-lvwnfn-byvk disease, not otherwise specified LIPID PANEL Routine 01/17/2022 Acute myeloblastic Results f or 10:23 AM CDT leukemia not having this pro cedure achieved remissi on are in the Status post stem cell result s transplant section. 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 Ywliw-zugkfd-maqj disease, not otherwise specified URIC ACID Routine 01/17/2022 Acute myeloblastic Results f or 10:23 AM CDT leukemia not having this pro cedure achieved remissi on are in the Status post stem cell result s transplant section. Jtxkd-piksut-mcws disease, not otherwise specified PHOSPHORUS LEVEL Routine 01/17/2022 Acute myeloblastic Resul ts for 10:23 AM CDT leukemia not having this pro cedure achieved remissi on are in the Status post stem cell result s transplant section. Wereo-wloiuo-bzsi disease, not otherwise specified COMPREHENSIVE Routine 01/17/2022 Acute myeloblastic METABOLIC PANEL 10:23 AM CDT leukemia not having achieved remissi on Status post stem cell transplant Ugkwp-gcwwhr-zapk disease, not otherwise specified TYPE AND SCREEN Routine 01/17/2022 Acute myeloblastic 10:23 AM CDT leukemia not having achieved remissi on Status post stem cell transplant Ecuox-fdqgtt-qhpl disease, not otherwise specified COMPLETE BLOOD COUNT Routine 01/17/2022 Acute myeloblastic W/ DIFFERENTIAL 10:23 AM CDT leukemia not having achieved remissi on Status post stem cell transplant Asihh-wgxdpm-ozjz disease, not otherwise specified ADENOVIRUS Routine 01/17/2022 Acute myeloblastic Results f or QUANTITATIVE, PLASMA 10:23 AM CDT leukemia not having this procedure achieved remissi on are in the Status post stem cell result s transplant section. Stbtk-eqohtf-fgyd disease, not otherwise specified HHV6 QUANT, PLASMA Routine 01/17/2022 Acute myeloblastic Res ults for 10:23 AM CDT leukemia not having this pro cedure achieved remissi on are in the Status post stem cell result s transplant section. Pmdtf-rpvgck-euvi disease, not otherwise specified CLOT EXPIRATION DATE Routine 01/04/2022 Results for 10:16 AM CDT this procedure are in the results section. TMP INTERPRETATION Routine 01/04/2022 Results f or ANTIBODY SCREEN 10:16 AM CDT this procedu re NEGATIVE are in the results section. ANTIBODY SCREEN Routine 01/04/2022 Chronic Results for 10:16 AM CDT tjfeu-iiigiv-gnwu this proce dure disease are in the Status post stem cell result s transplant section. ABORH Routine 01/04/2022 Chronic Results for 10:16 AM CDT kdljj-wwjvrg-uewh this proce dure disease are in the Status post stem cell result s transplant section. FRACTIONATED BILIRUBIN Routine 01/04/2022 Chronic Resul ts for 10:16 AM CDT vldxx-anxbyq-bpid this proce dure disease are in the Status post stem cell result s transplant section. TOTAL PROTEIN Routine 01/04/2022 Chronic Results for 10:16 AM CDT zgopw-kjxqbj-snue this proce dure disease are in the Status post stem cell result s transplant section. ASPARTATE Routine 01/04/2022 Chronic Results for AMINOTRANSFERASE 10:16 AM CDT kqfgo-azvahn-erpd this p rocedure disease are in the Status post stem cell result s transplant section. ALANINE Routine 01/04/2022 Chronic Results for AMINOTRANSFERASE 10:16 AM CDT hbxgo-ncwhpk-urwt this p rocedure disease are in the Status post stem cell result s transplant section. ALKALINE PHOSPHATASE Routine 01/04/2022 Chronic Results for 10:16 AM CDT bczsz-ydvglu-aigl this proce dure disease are in the Status post stem cell result s transplant section. ALBUMIN LEVEL Routine 01/04/2022 Chronic Results for 10:16 AM CDT ixfqj-mwzzou-onwi this proce dure disease are in the Status post stem cell result s transplant section. CALCIUM LEVEL TOTAL Routine 01/04/2022 Chronic Results for 10:16 AM CDT qvvir-qjkqht-zkmm this proce dure disease are in the Status post stem cell result s transplant section. .GLOMERULAR FILTRATION Routine 01/04/2022 Chronic Resul ts for RATE 10:16 AM CDT bjeho-dpobqy-ifca this proce dure disease are in the Status post stem cell result s transplant section. SERUM CREATININE Routine 01/04/2022 Chronic Results for 10:16 AM CDT osqev-nanshu-wtuo this proce dure disease are in the Status post stem cell result s transplant section. ELECTROLYTE PANEL Routine 01/04/2022 Chronic Results fo r 10:16 AM CDT yywxh-exwmhl-whop this proce dure disease are in the Status post stem cell result s transplant section. BLOOD UREA NITROGEN Routine 01/04/2022 Chronic Results for 10:16 AM CDT ohclk-offnzq-gemr this proce dure disease are in the Status post stem cell result s transplant section. GLUCOSE LEVEL Routine 01/04/2022 Chronic Results for 10:16 AM CDT ccmae-wtflsn-oygc this proce dure disease are in the Status post stem cell result s transplant section. MANUAL DIFFERENTIAL Routine 01/04/2022 Chronic Results for 10:16 AM CDT lufwx-mxyfjo-zwly this proce dure disease are in the Status post stem cell result s transplant section. Results CBC Routine 01/04/2022 Chronic Results for 10:16 AM CDT rncha-quaegz-lugd this proce dure disease are in the Status post stem cell result s transplant section. MAGNESIUM LEVEL Routine 01/04/2022 Chronic Results for 10:16 AM CDT gnzxm-mbjuvk-jyan this proce dure disease are in the Status post stem cell result s transplant section. LACTATE DEHYDROGENASE Routine 01/04/2022 Chronic Result s for 10:16 AM CDT vktez-sfzwjt-rvpn this proce dure disease are in the Status post stem cell result s transplant section. COMPREHENSIVE Routine 01/04/2022 Chronic METABOLIC PANEL 10:16 AM CDT gnsjm-pfhzcf-hqqo disease Status post stem cell transplant TYPE AND SCREEN Routine 01/04/2022 Chronic 10:16 AM CDT rigmj-sybkec-ljem disease Status post stem cell transplant COMPLETE BLOOD COUNT Routine 01/04/2022 Chronic W/ DIFFERENTIAL 10:16 AM CDT adofe-vinxid-drzz disease Status post stem cell transplant CLOT EXPIRATION DATE Routine 12/27/2021 Results for 10:27 AM CDT this procedure are in the results section. TMP INTERPRETATION Routine 12/27/2021 Results f or ANTIBODY SCREEN 10:27 AM CDT this procedu re NEGATIVE are in the results section. 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 ALANINE Routine 12/27/2021 Graft versus host Results fo r AMINOTRANSFERASE 10:27 AM CDT disease this procedure Chronic are in the jycth-dpespy-gqmk results disease section. ALKALINE PHOSPHATASE Routine 12/27/2021 Graft versus host Re sults for 10:27 AM CDT disease this procedure Chronic are in the srfwc-eapbgu-fabt results disease section. ALBUMIN LEVEL Routine 12/27/2021 Graft versus host Results f or 10:27 AM CDT disease this procedure Chronic are in the wamre-tqtzyw-kxab results disease section. CALCIUM LEVEL TOTAL Routine 12/27/2021 Graft versus host Res ults for 10:27 AM CDT disease this procedure Chronic are in the tqcon-ijnzrk-cyhe results disease section. 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 SERUM CREATININE Routine 12/27/2021 Graft versus host Result s for 10:27 AM CDT disease this procedure Chronic are in the rvlhn-pqcbkf-cyxl results disease section. 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 ABORH Routine 12/27/2021 Graft versus host Results fo r 10:27 AM CDT disease this procedure Chronic are in the sotky-akekmu-qqdk results disease section. ELECTROLYTE PANEL Routine 12/27/2021 Graft versus host Resul ts for 10:27 AM CDT disease this procedure Chronic are in the hpzmw-brsclk-jtzm results disease section. BLOOD UREA NITROGEN Routine 12/27/2021 Graft versus host Res ults for 10:27 AM CDT disease this procedure Chronic are in the srogu-dpyqix-ybmx results disease section. GLUCOSE LEVEL Routine 12/27/2021 Graft versus host Results f or 10:27 AM CDT disease this procedure Chronic are in the kqkss-lfdegv-slzr results disease section. MANUAL DIFFERENTIAL Routine 12/27/2021 Graft versus host Res ults for 10:27 AM CDT disease this procedure Chronic are in the ilhwk-hzutkx-mhaz results disease section. Results CBC Routine 12/27/2021 Graft versus host Results fo r 10:27 AM CDT disease this procedure Chronic are in the ybenl-bqsfud-epxm results disease section. 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 CLOT EXPIRATION DATE Routine 12/13/2021 Results for 10:33 AM CDT this procedure are in the results section. 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 Xnjzi-dctgrc-uttq disease, not otherwise specified ABORH Routine 12/13/2021 Acute myeloblastic Results f or 10:33 AM CDT leukemia not having this pro cedure achieved remissi on are in the Status post stem cell result s transplant section. 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 Nmqpy-jpdfvd-imdx disease, not otherwise specified ALKALINE PHOSPHATASE Routine 12/13/2021 Acute myeloblastic R esults for 10:33 AM CDT leukemia not having this pro cedure achieved remissi on are in the Status post stem cell result s transplant section. 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 Kmzmt-ewufrx-jfao disease, not otherwise specified CALCIUM LEVEL TOTAL Routine 12/13/2021 Acute myeloblastic Re sults for 10:33 AM CDT leukemia not having this pro cedure achieved remissi on are in the Status post stem cell result s transplant section. 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 Ofuyw-mmarrb-ktdw disease, not otherwise specified SERUM CREATININE Routine 12/13/2021 Acute myeloblastic Resul ts for 10:33 AM CDT leukemia not having this pro cedure achieved remissi on are in the Status post stem cell result s transplant section. Mtdvx-itexwl-mtay disease, not otherwise specified ELECTROLYTE PANEL Routine 12/13/2021 Acute myeloblastic Resu lts for 10:33 AM CDT leukemia not having this pro cedure achieved remissi on are in the Status post stem cell result s transplant section. Fhtwb-bfzjcg-kssb disease, not otherwise specified BLOOD UREA NITROGEN Routine 12/13/2021 Acute myeloblastic Re sults for 10:33 AM CDT leukemia not having this pro cedure achieved remissi on are in the Status post stem cell result s transplant section. 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 Brmnt-jswzxr-ftcg disease, not otherwise specified MANUAL DIFFERENTIAL Routine 12/13/2021 Acute myeloblastic Re sults for 10:33 AM CDT leukemia not having this pro cedure achieved remissi on are in the Status post stem cell result s transplant section. Vmmyb-sfjesy-oqom disease, not otherwise specified Results CBC Routine 12/13/2021 Acute myeloblastic Results f or 10:33 AM CDT leukemia not having this pro cedure achieved remissi on are in the Status post stem cell result s transplant section. Eblqb-gpylzi-khno disease, not otherwise specified VITAMIN D 25 HYDROXY Routine 12/13/2021 Acute myeloblastic R esults for LEVEL 10:33 AM CDT leukemia not having this pro cedure achieved remissi on are in the Status post stem cell result s transplant section. 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 Psolj-vzmlxk-jugk disease, not otherwise specified THYROID STIMULATING Routine 12/13/2021 Acute myeloblastic Re sults for HORMONE 10:33 AM CDT leukemia not having this pro cedure achieved remissi on are in the Status post stem cell result s transplant section. Lsems-zbfhzt-ixse disease, not otherwise specified LIPID PANEL Routine 12/13/2021 Acute myeloblastic Results f or 10:33 AM CDT leukemia not having this pro cedure achieved remissi on are in the Status post stem cell result s transplant section. Qlumy-qoqohe-tavf disease, not otherwise specified TACROLIMUS LEVEL Routine 12/13/2021 Acute myeloblastic Resul ts for 10:33 AM CDT leukemia not having this pro cedure achieved remissi on are in the Status post stem cell result s transplant section. 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 Kawvb-icymrz-uade disease, not otherwise specified GARY JAIME CARMELO-ADDISON Routine 12/13/2021 Acute myeloblastic Res ults for VIRUS QUANTITATIVE PCR 10:33 AM CDT leukemia not havin g this procedure ANALYSIS COLLECTION, achieved re mission are in the BLOOD Status post stem cell result s transplant section. Jdkwn-gwkbax-ktqw disease, not otherwise specified MAGNESIUM LEVEL Routine 12/13/2021 Acute myeloblastic Result s for 10:33 AM CDT leukemia not having this pro cedure achieved remissi on are in the Status post stem cell result s transplant section. 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 Cihsd-husqsa-clet disease, not otherwise specified URIC ACID Routine 12/13/2021 Acute myeloblastic Results f or 10:33 AM CDT leukemia not having this pro cedure achieved remissi on are in the Status post stem cell result s transplant section. Zpcen-yvrtuj-hkov disease, not otherwise specified PHOSPHORUS LEVEL Routine 12/13/2021 Acute myeloblastic Resul ts for 10:33 AM CDT leukemia not having this pro cedure achieved remissi on are in the Status post stem cell result s transplant section. 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 Pvajx-axmlbt-sxhx disease, not otherwise specified ADENOVIRUS Routine 12/13/2021 Acute myeloblastic Results f or QUANTITATIVE, PLASMA 10:33 AM CDT leukemia not having this procedure achieved remissi on are in the Status post stem cell result s transplant section. Nqnoe-zwyeyo-poog disease, not otherwise specified HHV6 QUANT, PLASMA Routine 12/13/2021 Acute myeloblastic Res ults for 10:33 AM CDT leukemia not having this pro cedure achieved remissi on are in the Status post stem cell result s transplant section. Uemkw-ntegbl-vcwf disease, not otherwise specified CLOT EXPIRATION DATE Routine 12/06/2021 9:59 Resu lts for AM CDT this procedure are in the results section. TMP INTERPRETATION Routine 12/06/2021 9:59 Result s for ANTIBODY SCREEN AM CDT this procedu re NEGATIVE are in the results section. 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 FRACTIONATED BILIRUBIN Routine 12/06/2021 9:59 Graft versus ho st Results for AM CDT disease this procedure Chronic are in the shgvp-gcpnta-uebj results disease section. TOTAL PROTEIN Routine 12/06/2021 9:59 Graft versus host Result s for AM CDT disease this procedure Chronic are in the viqtv-lmzqup-hmhn results disease section. ASPARTATE Routine 12/06/2021 9:59 Graft versus host Results for AMINOTRANSFERASE AM CDT disease this procedure Chronic are in the hkpqk-fcxvkf-zaih results disease section. ALANINE Routine 12/06/2021 9:59 Graft versus host Results for AMINOTRANSFERASE AM CDT disease this procedure Chronic are in the pzaea-zrqfom-gxke results disease section. 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 ALBUMIN LEVEL Routine 12/06/2021 9:59 Graft versus host Result s for AM CDT disease this procedure Chronic are in the kowjw-nlemku-llbr results disease section. CALCIUM LEVEL TOTAL Routine 12/06/2021 9:59 Graft versus host Results for AM CDT disease this procedure Chronic are in the qlqvn-rdfzil-pykd results disease section. .GLOMERULAR FILTRATION Routine 12/06/2021 9:[address] Results for RATE AM CDT disease this procedure Chronic are in the mbsge-xqvktf-djmb results disease section. SERUM CREATININE Routine 12/06/2021 9:59 Graft versus host Res ults for AM CDT disease this procedure Chronic are in the pmvhv-uhkqtv-kjtz results disease section. ELECTROLYTE PANEL Routine 12/06/2021 9:59 Graft versus host Re sults for AM CDT disease this procedure Chronic are in the xemxr-kcktbv-pmet results disease section. 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 GLUCOSE LEVEL Routine 12/06/2021 9:59 Graft versus host Result s for AM CDT disease this procedure Chronic are in the dwusz-zpthmu-yxfs results disease section. 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 TOTAL PROTEIN Routine 11/29/2021 9:50 Graft versus host Result s for AM WOOL CARDER disease this procedure are in the results section. ASPARTATE Routine 11/29/2021 9:50 Graft versus host Results for AMINOTRANSFERASE AM WOOL CARDER disease this proced ure are in the results section. ALANINE Routine 11/29/2021 9:50 Graft versus host Results for AMINOTRANSFERASE AM WOOL CARDER disease this proced ure are in the results section. ALKALINE PHOSPHATASE Routine 11/29/2021 9:50 Graft versus host Results for AM WOOL CARDER disease this procedure are in the results section. ALBUMIN LEVEL Routine 11/29/2021 9:50 Graft versus host Result s for AM WOOL CARDER disease this procedure are in the results section. CALCIUM LEVEL TOTAL Routine 11/29/2021 9:50 Graft versus host Results for AM WOOL CARDER disease this procedure are in the results section. .GLOMERULAR FILTRATION Routine 11/29/2021 9:[address] Results for RATE AM WOOL CARDER disease this procedure are in the results section. SERUM CREATININE Routine 11/29/2021 9:50 Graft versus host Res ults for AM WOOL CARDER disease this procedure are in the results section. ELECTROLYTE PANEL Routine 11/29/2021 9:50 Graft versus host Re sults for AM WOOL CARDER disease this procedure are in the results section. BLOOD UREA NITROGEN Routine 11/29/2021 9:50 Graft versus host Results for AM WOOL CARDER disease this procedure are in the results section. GLUCOSE LEVEL Routine 11/29/2021 9:50 Graft versus host Result s for AM WOOL CARDER disease this procedure are in the results section. MANUAL DIFFERENTIAL Routine 11/29/2021 9:50 Graft versus host Results for AM WOOL CARDER disease this procedure are in the results section. Results CBC STAT 11/29/2021 9:50 Graft versus host Results for AM WOOL CARDER disease this procedure are in the results section. MAGNESIUM LEVEL Routine 11/29/2021 9:50 Graft versus host Resu lts for AM WOOL CARDER disease this procedure are in the results section. COMPREHENSIVE Routine 11/29/2021 9:50 Graft versus host METABOLIC PANEL AM WOOL CARDER disease COMPLETE BLOOD COUNT Routine 11/29/2021 9:50 Graft versus host W/ DIFFERENTIAL AM WOOL CARDER disease BLOODCULTURE Routine 11/29/2021 9:50 Graft versus host Results for AM WOOL CARDER disease this procedure are in the results section. CLOT EXPIRATION DATE Routine 11/20/2021 7:22 Resu lts for AM WOOL CARDER this procedure are in the results section. TMP INTERPRETATION Routine 11/20/2021 7:22 Result s for ANTIBODY SCREEN AM WOOL CARDER this procedu re NEGATIVE are in the results section. ANTIBODY SCREEN Routine 11/20/2021 7:22 Complication of stem R esults for AM WOOL CARDER cell transplant this procedure Graft versus host are in the disease results section. ABORH Routine 11/20/2021 7:22 Complication of stem Resu lts for AM WOOL CARDER cell transplant this procedure Graft versus host are in the disease results section. FRACTIONATED BILIRUBIN Routine 11/20/2021 7:22 Complication of stem Results for AM WOOL CARDER cell transplant this procedure Graft versus host are in the disease results section. TOTAL PROTEIN Routine 11/20/2021 7:22 Complication of stem Res ults for AM WOOL CARDER cell transplant this procedure Graft versus host are in the disease results section. ASPARTATE Routine 11/20/2021 7:22 Complication of stem Resu lts for AMINOTRANSFERASE AM WOOL CARDER cell transplant this procedure Graft versus host are in the disease results section. ALANINE Routine 11/20/2021 7:22 Complication of stem Resu lts for AMINOTRANSFERASE AM WOOL CARDER cell transplant this procedure Graft versus host are in the disease results section. ALKALINE PHOSPHATASE Routine 11/20/2021 7:22 Complication of s tem Results for AM WOOL CARDER cell transplant this procedure Graft versus host are in the disease results section. ALBUMIN LEVEL Routine 11/20/2021 7:22 Complication of stem Res ults for AM WOOL CARDER cell transplant this procedure Graft versus host are in the disease results section. CALCIUM LEVEL TOTAL Routine 11/20/2021 7:[address] em Results for AM WOOL CARDER cell transplant this procedure Graft versus host are in the disease results section. .GLOMERULAR FILTRATION Routine 11/20/2021 7:22 Complication of stem Results for RATE AM WOOL CARDER cell transplant this procedure Graft versus host are in the disease results section. SERUM CREATININE Routine 11/20/2021 7:22 Complication of stem Results for AM WOOL CARDER cell transplant this procedure Graft versus host are in the disease results section. ELECTROLYTE PANEL Routine 11/20/2021 7:22 Complication of stem Results for AM WOOL CARDER cell transplant this procedure Graft versus host are in the disease results section. BLOOD UREA NITROGEN Routine 11/20/2021 7:[address] em Results for AM WOOL CARDER cell transplant this procedure Graft versus host are in the disease results section. GLUCOSE LEVEL Routine 11/20/2021 7:22 Complication of stem Res ults for AM WOOL CARDER cell transplant this procedure Graft versus host are in the disease results section. MANUAL DIFFERENTIAL Routine 11/20/2021 7:[address] em Results for AM WOOL CARDER cell transplant this procedure Graft versus host are in the disease results section. Results CBC Routine 11/20/2021 7:22 Complication of stem Resu lts for AM WOOL CARDER cell transplant this procedure Graft versus host are in the disease results section. TYPE AND SCREEN Routine 11/20/2021 7:22 Complication of stem AM WOOL CARDER cell transplant Graft versus host disease MAGNESIUM LEVEL Routine 11/20/2021 7:22 Complication of stem R esults for AM WOOL CARDER cell transplant this procedure Graft versus host are in the disease results section. COMPREHENSIVE Routine 11/20/2021 7:22 Complication of stem METABOLIC PANEL AM WOOL CARDER cell transplant Graft versus host disease COMPLETE BLOOD COUNT Routine 11/20/2021 7:22 Complication of s tem W/ DIFFERENTIAL AM WOOL CARDER cell transplant Graft versus host disease CLOT EXPIRATION DATE Routine 11/15/2021 9:53 Resu lts for AM WOOL CARDER this procedure are in the results section. TMP INTERPRETATION Routine 11/15/2021 9:53 Result s for ANTIBODY SCREEN AM WOOL CARDER this procedu re NEGATIVE are in the results section. ANTIBODY SCREEN Routine 11/15/2021 9:53 Acute myeloblastic Res ults for AM WOOL CARDER leukemia not having this pro cedure achieved remissi on are in the Status post stem cell result s transplant section. Inaal-kkjzhw-ognp disease, not otherwise specified ABORH Routine 11/15/2021 9:53 Acute myeloblastic Result s for AM WOOL CARDER leukemia not having this pro cedure achieved remissi on are in the Status post stem cell result s transplant section. Vtzhs-wjfesv-vrcb disease, not otherwise specified FRACTIONATED BILIRUBIN Routine 11/15/2021 9:53 Acute myeloblas tic Results for AM WOOL CARDER leukemia not having this pro cedure achieved remissi on are in the Status post stem cell result s transplant section. Eprzw-rpimfn-xzzw disease, not otherwise specified TOTAL PROTEIN Routine 11/15/2021 9:53 Acute myeloblastic Resul ts for AM WOOL CARDER leukemia not having this pro cedure achieved remissi on are in the Status post stem cell result s transplant section. Blvvn-hicpmr-fxvn disease, not otherwise specified ASPARTATE Routine 11/15/2021 9:53 Acute myeloblastic Result s for AMINOTRANSFERASE AM WOOL CARDER leukemia not having this procedure achieved remissi on are in the Status post stem cell result s transplant section. Mqqnq-uphjdh-sjxt disease, not otherwise specified ALANINE Routine 11/15/2021 9:53 Acute myeloblastic Result s for AMINOTRANSFERASE AM WOOL CARDER leukemia not having this procedure achieved remissi on are in the Status post stem cell result s transplant section. Znpon-rhwgsj-ecmf disease, not otherwise specified ALKALINE PHOSPHATASE Routine 11/15/2021 9:53 Acute myeloblasti c Results for AM WOOL CARDER leukemia not having this pro cedure achieved remissi on are in the Status post stem cell result s transplant section. Bwaty-qzcmvv-bkol disease, not otherwise specified ALBUMIN LEVEL Routine 11/15/2021 9:53 Acute myeloblastic Resul ts for AM WOOL CARDER leukemia not having this pro cedure achieved remissi on are in the Status post stem cell result s transplant section. Ryatk-cguibj-mhym disease, not otherwise specified CALCIUM LEVEL TOTAL Routine 11/15/2021 9:53 Acute myeloblastic Results for AM WOOL CARDER leukemia not having this pro cedure achieved remissi on are in the Status post stem cell result s transplant section. Awowa-zoavsa-quxc disease, not otherwise specified .GLOMERULAR FILTRATION Routine 11/15/2021 9:53 Acute myeloblas tic Results for RATE AM WOOL CARDER leukemia not having this pro cedure achieved remissi on are in the Status post stem cell result s transplant section. Jhgav-rjmtns-dhis disease, not otherwise specified SERUM CREATININE Routine 11/15/2021 9:53 Acute myeloblastic Re sults for AM WOOL CARDER leukemia not having this pro cedure achieved remissi on are in the Status post stem cell result s transplant section. Fcomf-jagbup-ehla disease, not otherwise specified ELECTROLYTE PANEL Routine 11/15/2021 9:53 Acute myeloblastic R esults for AM WOOL CARDER leukemia not having this pro cedure achieved remissi on are in the Status post stem cell result s transplant section. Pmrrj-cxuplw-jiqs disease, not otherwise specified BLOOD UREA NITROGEN Routine 11/15/2021 9:53 Acute myeloblastic Results for AM WOOL CARDER leukemia not having this pro cedure achieved remissi on are in the Status post stem cell result s transplant section. Ctecs-yyuaah-hqrp disease, not otherwise specified GLUCOSE LEVEL Routine 11/15/2021 9:53 Acute myeloblastic Resul ts for AM WOOL CARDER leukemia not having this pro cedure achieved remissi on are in the Status post stem cell result s transplant section. Ptrlf-akfwtx-ymvu disease, not otherwise specified MANUAL DIFFERENTIAL Routine 11/15/2021 9:53 Acute myeloblastic Results for AM WOOL CARDER leukemia not having this pro cedure achieved remissi on are in the Status post stem cell result s transplant section. Mfsmc-oeymoo-zqwq disease, not otherwise specified Results CBC Routine 11/15/2021 9:53 Acute myeloblastic Result s for AM WOOL CARDER leukemia not having this pro cedure achieved remissi on are in the Status post stem cell result s transplant section. Kxnkq-gyyxwc-kykg disease, not otherwise specified TACROLIMUS LEVEL Routine 11/15/2021 9:53 Acute myeloblastic Re sults for AM WOOL CARDER leukemia not having this pro cedure achieved remissi on are in the Status post stem cell result s transplant section. Toebd-udsatg-cmbu disease, not otherwise specified CMV QUANT PCR Routine 11/15/2021 9:53 Acute myeloblastic Resul ts for AM WOOL CARDER leukemia not having this pro cedure achieved remissi on are in the Status post stem cell result s transplant section. Ngwgc-dxivyx-nppm disease, not otherwise specified MAGNESIUM LEVEL Routine 11/15/2021 9:53 Acute myeloblastic Res ults for AM WOOL CARDER leukemia not having this pro cedure achieved remissi on are in the Status post stem cell result s transplant section. Gunjg-mflgjs-arop disease, not otherwise specified LACTATE DEHYDROGENASE Routine 11/15/2021 9:53 Acute myeloblast ic Results for AM WOOL CARDER leukemia not having this pro cedure achieved remissi on are in the Status post stem cell result s transplant section. Rpzzf-xpwzrl-fnjt disease, not otherwise specified URIC ACID Routine 11/15/2021 9:53 Acute myeloblastic Result s for AM WOOL CARDER leukemia not having this pro cedure achieved remissi on are in the Status post stem cell result s transplant section. Ipdak-jgrznx-ezkf disease, not otherwise specified PHOSPHORUS LEVEL Routine 11/15/2021 9:53 Acute myeloblastic Re sults for AM WOOL CARDER leukemia not having this pro cedure achieved remissi on are in the Status post stem cell result s transplant section. 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 GARY JAIME CARMELO-ADDISON Routine 11/13/2021 VIRUS QUANTITATIVE PCR 10:21 AM [employer] ANALYSIS INTERPRETATION AND REPORT TMP INTERPRETATION Routine 11/13/2021 Results f or ANTIBODY SCREEN 10:21 AM [employer] this procedu re NEGATIVE are in the results section. 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 ASPARTATE Routine 11/13/2021 Acute myeloblastic Results f or AMINOTRANSFERASE 10:21 AM [employer] leukemia not having this procedure achieved remissi on are in the Status post stem cell result s transplant section. ALANINE Routine 11/13/2021 Acute myeloblastic Results f or AMINOTRANSFERASE 10:21 AM [employer] leukemia not having this procedure achieved remissi on are in the Status post stem cell result s transplant section. ALKALINE PHOSPHATASE Routine 11/13/2021 Acute myeloblastic R esults for 10:21 AM [employer] leukemia not having this pro cedure achieved remissi on are in the Status post stem cell result s transplant section. 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 CALCIUM LEVEL TOTAL Routine 11/13/2021 Acute myeloblastic Re sults for 10:21 AM [employer] leukemia not having this pro cedure achieved remissi on are in the Status post stem cell result s transplant section. 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 SERUM CREATININE Routine 11/13/2021 Acute myeloblastic Resul ts for 10:21 AM [employer] leukemia not having this pro cedure achieved remissi on are in the Status post stem cell result s transplant section. ELECTROLYTE PANEL Routine 11/13/2021 Acute myeloblastic Resu lts for 10:21 AM [employer] leukemia not having this pro cedure achieved remissi on are in the Status post stem cell result s transplant section. BLOOD UREA NITROGEN Routine 11/13/2021 Acute myeloblastic Re sults for 10:21 AM [employer] leukemia not having this pro cedure achieved remissi on are in the Status post stem cell result s transplant section. 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 MANUAL DIFFERENTIAL Routine 11/13/2021 Acute myeloblastic Re sults for 10:21 AM [employer] leukemia not having this pro cedure achieved remissi on are in the Status post stem cell result s transplant section. Results CBC Routine 11/13/2021 Acute myeloblastic Results f or 10:21 AM [employer] leukemia not having this pro cedure achieved remissi on are in the Status post stem cell result s transplant section. ANTIBODY SCREEN Routine 11/13/2021 Acute myeloblastic Result s for 10:21 AM [employer] leukemia not having this pro cedure achieved remissi on are in the Status post stem cell result s transplant section. 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 TACROLIMUS LEVEL Routine 11/13/2021 Acute myeloblastic Resul ts for 10:21 AM [employer] leukemia not having this pro cedure achieved remissi on are in the Status post stem cell result s transplant section. 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 GARY JAIME CARMELO-ADDISON Routine 11/13/2021 Acute myeloblastic Res ults for VIRUS QUANTITATIVE PCR 10:21 AM [employer] leukemia not havin g this procedure ANALYSIS COLLECTION, achieved re mission are in the BLOOD Status post stem cell result s transplant section. MAGNESIUM LEVEL Routine 11/13/2021 Acute myeloblastic Result s for 10:21 AM [employer] leukemia not having this pro cedure achieved remissi on are in the Status post stem cell result s transplant section. 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 PHOSPHORUS LEVEL Routine 11/13/2021 Acute myeloblastic Resul ts for 10:21 AM [employer] leukemia not having this pro cedure achieved remissi on are in the Status post stem cell result s transplant section. COMPREHENSIVE Routine 11/13/2021 Acute myeloblastic METABOLIC PANEL 10:21 AM [employer] leukemia not having achieved remissi on Status post stem cell transplant TYPE AND SCREEN Routine 11/13/2021 Acute myeloblastic 10:21 AM [employer] leukemia not having achieved remissi on Status post stem cell transplant COMPLETE BLOOD COUNT Routine 11/13/2021 Acute myeloblastic W/ DIFFERENTIAL 10:21 AM [employer] leukemia not having achieved remissi on Status post stem cell transplant ADENOVIRUS Routine 11/13/2021 Acute myeloblastic Results f or QUANTITATIVE, PLASMA 10:21 AM [employer] leukemia not having this procedure achieved remissi on are in the Status post stem cell result s transplant section. HHV6 QUANT, PLASMA Routine 11/13/2021 Acute myeloblastic Res ults for 10:21 AM [employer] leukemia not having this pro cedure achieved remissi on are in the Status post stem cell result s transplant section. CLOT EXPIRATION DATE Routine 11/06/2021 Results for 10:54 AM [employer] this procedure are in the results section. TMP INTERPRETATION Routine 11/06/2021 Results f or ANTIBODY SCREEN 10:54 AM [employer] this procedu re NEGATIVE are in the results section. 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 ABORH Routine 11/06/2021 Complication of stem Results for 10:54 AM [employer] cell transplant this procedure Graft versus host are in the disease results section. FRACTIONATED BILIRUBIN Routine 11/06/[address] em Results for 10:54 AM [employer] cell transplant this procedure Graft versus host are in the disease results section. TOTAL PROTEIN Routine 11/06/2021 Complication of stem Result s for 10:54 AM [employer] cell transplant this procedure Graft versus host are in the disease results section. ASPARTATE Routine 11/06/2021 Complication of stem Results for AMINOTRANSFERASE 10:54 AM [employer]ER cell transplant this procedure Graft versus host are in the disease results section. ALANINE Routine 11/06/2021 Complication of stem Results for AMINOTRANSFERASE 10:54 AM [employer] cell transplant this procedure Graft versus host are in the disease results section. ALKALINE PHOSPHATASE Routine 11/06/2021 Complication of stem Results for 10:54 AM [employer] cell transplant this procedure Graft versus host are in the disease results section. ALBUMIN LEVEL Routine 11/06/2021 Complication of stem Result s for 10:54 AM [employer] cell transplant this procedure Graft versus host are in the disease results section. CALCIUM LEVEL TOTAL Routine 11/06/2021 Complication of stem Results for 10:54 AM [employer] cell transplant this procedure Graft versus host are in the disease results section. .GLOMERULAR FILTRATION Routine 11/06/[address] em Results for RATE 10:54 AM [employer] cell transplant this procedure Graft versus host are in the disease results section. SERUM CREATININE Routine 11/06/2021 Complication of stem Res ults for 10:54 AM [employer] cell transplant this procedure Graft versus host are in the disease results section. ELECTROLYTE PANEL Routine 11/06/2021 Complication of stem Re sults for 10:54 AM [employer] cell transplant this procedure Graft versus host are in the disease results section. BLOOD UREA NITROGEN Routine 11/06/2021 Complication of stem Results for 10:54 AM [employer] cell transplant this procedure Graft versus host are in the disease results section. GLUCOSE LEVEL Routine 11/06/2021 Complication of stem Result s for 10:54 AM [employer] cell transplant this procedure Graft versus host are in the disease results section. MANUAL DIFFERENTIAL Routine 11/06/2021 Complication of stem Results for 10:54 AM [employer] cell transplant this procedure Graft versus host are in the disease results section. Results CBC Routine 11/06/2021 Complication of stem Results for 10:54 AM [employer] cell transplant this procedure Graft versus host are in the disease results section. 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 TOTAL PROTEIN Routine 11/01/2021 9:58 Complication of stem Res ults for AM [employer] cell transplant this procedu re are in the results section. ASPARTATE Routine 11/01/2021 9:58 Complication of stem Resu lts for AMINOTRANSFERASE AM [employer] cell transplant this pro cedure are in the results section. ALANINE Routine 11/01/2021 9:58 Complication of stem Resu lts for AMINOTRANSFERASE AM [employer] cell transplant this pro cedure are in the results section. ALKALINE PHOSPHATASE Routine 11/01/2021 9:58 Complication of s tem Results for AM [employer] cell transplant this procedu re are in the results section. ALBUMIN LEVEL Routine 11/01/2021 9:58 Complication of stem Res ults for AM [employer] cell transplant this procedu re are in the results section. CALCIUM LEVEL TOTAL Routine 11/01/2021 9:[address] em Results for AM WO[employer]ER cell transplant this procedu re are in the results section. .GLOMERULAR FILTRATION Routine 11/01/2021 9:58 Complication of stem Results for RATE AM [employer] cell transplant this procedu re are in the results section. SERUM CREATININE Routine 11/01/2021 9:58 Complication of stem Results for AM [employer] cell transplant this procedu re are in the results section. ELECTROLYTE PANEL Routine 11/01/2021 9:58 Complication of stem Results for AM [employer] cell transplant this procedu re are in the results section. BLOOD UREA NITROGEN Routine 11/01/2021 9:[address] em Results for AM [employer] cell transplant this procedu re are in the results section. GLUCOSE LEVEL Routine 11/01/2021 9:58 Complication of stem Res ults for AM [employer] cell transplant this procedu re are in the results section. MANUAL DIFFERENTIAL STAT 11/01/2021 9:[address] em Results for AM [employer]ER cell transplant this procedu re are in the results section. Results CBC STAT 11/01/2021 9:58 Complication of stem Resu lts for AM [employer] cell transplant this procedu re are in the results section. MAGNESIUM LEVEL Routine 11/01/2021 9:58 Complication of stem R esults for AM [employer] cell transplant this procedu re are in the results section. COMPREHENSIVE Routine 11/01/2021 9:58 Complication of stem METABOLIC PANEL AM [employer] cell transplant COMPLETE BLOOD COUNT Routine 11/01/2021 9:58 Complication of s tem W/ DIFFERENTIAL AM [employer] cell transplant CT CHEST/LUNG Routine 10/25/2021 7:54 Dyspnea, not otherwise R esults for SURVEILLANCE LOW DOSE AM [employer] specified this p rocedure are in the results section. TMP INTERPRETATION Routine 10/23/2021 9:51 Result s for ANTIBODY SCREEN AM [employer] this procedu re NEGATIVE are in the results section. CLOT EXPIRATION DATE Routine 10/23/2021 9:51 Resu lts for AM [employer]ER this procedure are in the results section. ANTIBODY SCREEN Routine 10/23/2021 9:51 Graft versus host Resu lts for AM [employer]ER disease this procedure Complication of stem are in the cell transplant results section. ABORH Routine 10/23/2021 9:51 Graft versus host Results for AM [employer]ER disease this procedure Complication of stem are in the cell transplant results section. FRACTIONATED BILIRUBIN Routine 10/23/2021 9:[address] Results for AM WO[employer]ER disease this procedure Complication of stem are in the cell transplant results section. TOTAL PROTEIN Routine 10/23/2021 9:51 Graft versus host Result s for AM [employer]ER disease this procedure Complication of stem are in the cell transplant results section. ASPARTATE Routine 10/23/2021 9:51 Graft versus host Results for AMINOTRANSFERASE AM [employer]ER disease this procedure Complication of stem are in the cell transplant results section. ALANINE Routine 10/23/2021 9:51 Graft versus host Results for AMINOTRANSFERASE AM [employer]ER disease this procedure Complication of stem are in the cell transplant results section. ALKALINE PHOSPHATASE Routine 10/23/2021 9:51 Graft versus host Results for AM [employer]ER disease this procedure Complication of stem are in the cell transplant results section. ALBUMIN LEVEL Routine 10/23/2021 9:51 Graft versus host Result s for AM [employer]ER disease this procedure Complication of stem are in the cell transplant results section. CALCIUM LEVEL TOTAL Routine 10/23/2021 9:51 Graft versus host Results for AM WO[employer]ER disease this procedure Complication of stem are in the cell transplant results section. .GLOMERULAR FILTRATION Routine 10/23/2021 9:[address] Results for RATE AM [employer]ER disease this procedure Complication of stem are in the cell transplant results section. SERUM CREATININE Routine 10/23/2021 9:51 Graft versus host Res ults for AM WO[employer] C[employer]ER disease this procedure Complication of stem are in the cell transplant results section. ELECTROLYTE PANEL Routine 10/23/2021 9:51 Graft versus host Re sults for AM [employer] C[employer]ER disease this procedure Complication of stem are in the cell transplant results section. BLOOD UREA NITROGEN Routine 10/23/2021 9:51 Graft versus host Results for AM [employer] C[employer]ER disease this procedure Complication of stem are in the cell transplant results section. GLUCOSE LEVEL Routine 10/23/2021 9:51 Graft versus host Result s for AM [employer]ER disease this procedure Complication of stem are in the cell transplant results section. MANUAL DIFFERENTIAL Routine 10/23/2021 9:51 Graft versus host Results for AM WO[employer]ER disease this procedure Complication of stem are in the cell transplant results section. Results CBC Routine 10/23/2021 9:51 Graft versus host Results for AM WO[employer]ER disease this procedure Complication of stem are in the cell transplant results section. TYPE AND SCREEN Routine 10/23/2021 9:51 Graft versus host AM [employer]ER disease Complication of stem cell transplant MAGNESIUM LEVEL Routine 10/23/2021 9:51 Graft versus host Resu lts for AM WO[employer]ER disease this procedure Complication of stem are in the cell transplant results section. COMPREHENSIVE Routine 10/23/2021 9:51 Graft versus host METABOLIC PANEL AM [employer] disease Complication of stem cell transplant COMPLETE BLOOD COUNT Routine 10/23/2021 9:51 Graft versus host W/ DIFFERENTIAL AM [employer] disease Complication of stem cell transplant TMP INTERPRETATION Routine 10/18/2021 9:45 Result s for ANTIBODY SCREEN AM [employer] this procedu re NEGATIVE are in the results section. CLOT EXPIRATION DATE Routine 10/18/2021 9:45 Resu lts for AM [employer]ER this procedure are in the results section. ANTIBODY SCREEN Routine 10/18/2021 9:45 Graft versus host Resu lts for AM [employer]ER disease this procedure Complication of stem are in the cell transplant results section. ABORH Routine 10/18/2021 9:45 Graft versus host Results for AM WO[employer]ER disease this procedure Complication of stem are in the cell transplant results section. FRACTIONATED BILIRUBIN Routine 10/18/2021 9:[address] Results for AM [employer]ER disease this procedure Complication of stem are in the cell transplant results section. TOTAL PROTEIN Routine 10/18/2021 9:45 Graft versus host Result s for AM [employer]ER disease this procedure Complication of stem are in the cell transplant results section. ASPARTATE Routine 10/18/2021 9:45 Graft versus host Results for AMINOTRANSFERASE AM [employer]ER disease this procedure Complication of stem are in the cell transplant results section. ALANINE Routine 10/18/2021 9:45 Graft versus host Results for AMINOTRANSFERASE AM [employer]ER disease this procedure Complication of stem are in the cell transplant results section. ALKALINE PHOSPHATASE Routine 10/18/2021 9:45 Graft versus host Results for AM [employer] C[employer]ER disease this procedure Complication of stem are in the cell transplant results section. ALBUMIN LEVEL Routine 10/18/2021 9:45 Graft versus host Result s for AM [employer]ER disease this procedure Complication of stem are in the cell transplant results section. CALCIUM LEVEL TOTAL Routine 10/18/2021 9:45 Graft versus host Results for AM [employer]ER disease this procedure Complication of stem are in the cell transplant results section. .GLOMERULAR FILTRATION Routine 10/18/2021 9:[address] Results for RATE AM [employer]ER disease this procedure Complication of stem are in the cell transplant results section. SERUM CREATININE Routine 10/18/2021 9:45 Graft versus host Res ults for AM [employer] C[employer]ER disease this procedure Complication of stem are in the cell transplant results section. ELECTROLYTE PANEL Routine 10/18/2021 9:45 Graft versus host Re sults for AM [employer] C[employer]ER disease this procedure Complication of stem are in the cell transplant results section. BLOOD UREA NITROGEN Routine 10/18/2021 9:45 Graft versus host Results for AM WO[employer] C[employer]ER disease this procedure Complication of stem are in the cell transplant results section. GLUCOSE LEVEL Routine 10/18/2021 9:45 Graft versus host Result s for AM [employer]ER disease this procedure Complication of stem are in the cell transplant results section. MANUAL DIFFERENTIAL Routine 10/18/2021 9:45 Graft versus host Results for AM [employer] C[employer]ER disease this procedure Complication of stem are in the cell transplant results section. Results CBC Routine 10/18/2021 9:45 Graft versus host Results for AM WO[employer] C[employer]ER disease this procedure Complication of stem are in the cell transplant results section. TYPE AND SCREEN Routine 10/18/2021 9:45 Graft versus host AM [employer]ER disease Complication of stem cell transplant MAGNESIUM LEVEL Routine 10/18/2021 9:45 Graft versus host Resu lts for AM WO[employer] C[employer]ER disease this procedure Complication of stem are in the cell transplant results section. COMPREHENSIVE Routine 10/18/2021 9:45 Graft versus host METABOLIC PANEL AM [employer]ER disease Complication of stem cell transplant COMPLETE BLOOD COUNT Routine 10/18/2021 9:45 Graft versus host W/ DIFFERENTIAL AM [employer] disease Complication of stem cell transplant TMP INTERPRETATION Routine 10/11/2021 Results f or ANTIBODY SCREEN 10:43 AM [employer] this procedu re NEGATIVE are in the results section. CLOT EXPIRATION DATE Routine 10/11/2021 Results for 10:43 AM [employer] this procedure are in the results section. ANTIBODY SCREEN Routine 10/11/2021 Acute myeloblastic Result s for 10:43 AM [employer] leukemia not having this pro cedure achieved remissi on are in the Status post stem cell result s transplant section. Rvsaf-ajaiol-oqup disease, not otherwise specified ABORH Routine 10/11/2021 Acute myeloblastic Results f or 10:43 AM [employer] leukemia not having this pro cedure achieved remissi on are in the Status post stem cell result s transplant section. 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 Nmxhf-qcdpsn-tkgc disease, not otherwise specified TOTAL PROTEIN Routine 10/11/2021 Acute myeloblastic Results for 10:43 AM [employer]ER leukemia not having this pro cedure achieved remissi on are in the Status post stem cell result s transplant section. Qpaxr-cemenv-kktf disease, not otherwise specified ASPARTATE Routine 10/11/2021 Acute myeloblastic Results f or AMINOTRANSFERASE 10:43 AM [employer]ER leukemia not having this procedure achieved remissi on are in the Status post stem cell result s transplant section. Ptqeu-jqtbvr-qrdu disease, not otherwise specified ALANINE Routine 10/11/2021 Acute myeloblastic Results f or AMINOTRANSFERASE 10:43 AM [employer]ER leukemia not having this procedure achieved remissi on are in the Status post stem cell result s transplant section. Moitl-btbfra-hbjz disease, not otherwise specified ALKALINE PHOSPHATASE Routine 10/11/2021 Acute myeloblastic R esults for 10:43 AM [employer]ER leukemia not having this pro cedure achieved remissi on are in the Status post stem cell result s transplant section. 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 Ieqsz-mndjuv-cyvn disease, not otherwise specified CALCIUM LEVEL TOTAL Routine 10/11/2021 Acute myeloblastic Re sults for 10:43 AM [employer]ER leukemia not having this pro cedure achieved remissi on are in the Status post stem cell result s transplant section. Pbsuw-pagekm-zxiu disease, not otherwise specified .GLOMERULAR FILTRATION Routine 10/11/2021 Acute myeloblastic Results for RATE 10:43 AM [employer]ER leukemia not having this pro cedure achieved remissi on are in the Status post stem cell result s transplant section. Qveap-itsvwi-lbrq disease, not otherwise specified SERUM CREATININE Routine 10/11/2021 Acute myeloblastic Resul ts for 10:43 AM [employer]ER leukemia not having this pro cedure achieved remissi on are in the Status post stem cell result s transplant section. Btcon-jxqopk-xkqn disease, not otherwise specified ELECTROLYTE PANEL Routine 10/11/2021 Acute myeloblastic Resu lts for 10:43 AM [employer]ER leukemia not having this pro cedure achieved remissi on are in the Status post stem cell result s transplant section. Xjjap-vtdfdv-onet disease, not otherwise specified BLOOD UREA NITROGEN Routine 10/11/2021 Acute myeloblastic Re sults for 10:43 AM [employer]ER leukemia not having this pro cedure achieved remissi on are in the Status post stem cell result s transplant section. Smwyl-xfojxw-gdxr disease, not otherwise specified GLUCOSE LEVEL Routine 10/11/2021 Acute myeloblastic Results for 10:43 AM [employer] leukemia not having this pro cedure achieved remissi on are in the Status post stem cell result s transplant section. Cbjrq-rrxamq-ixsk disease, not otherwise specified MANUAL DIFFERENTIAL Routine 10/11/2021 Acute myeloblastic Re sults for 10:43 AM [employer]ER leukemia not having this pro cedure achieved remissi on are in the Status post stem cell result s transplant section. Igxru-regwyk-glca disease, not otherwise specified Results CBC Routine 10/11/2021 Acute myeloblastic Results f or 10:43 AM [employer] leukemia not having this pro cedure achieved remissi on are in the Status post stem cell result s transplant section. Ivkzn-hewmnn-slom disease, not otherwise specified TACROLIMUS LEVEL Routine 10/11/2021 Acute myeloblastic Resul ts for 10:43 AM [employer] leukemia not having this pro cedure achieved remissi on are in the Status post stem cell result s transplant section. 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 Dovir-sceqaj-grky disease, not otherwise specified MAGNESIUM LEVEL Routine 10/11/2021 Acute myeloblastic Result s for 10:43 AM [employer] leukemia not having this pro cedure achieved remissi on are in the Status post stem cell result s transplant section. 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 Ghbhe-pfrmyt-iqne disease, not otherwise specified URIC ACID Routine 10/11/2021 Acute myeloblastic Results f or 10:43 AM [employer] leukemia not having this pro cedure achieved remissi on are in the Status post stem cell result s transplant section. Gwzyr-sqbljr-fzkh disease, not otherwise specified PHOSPHORUS LEVEL Routine 10/11/2021 Acute myeloblastic Resul ts for 10:43 AM [employer] leukemia not having this pro cedure achieved remissi on are in the Status post stem cell result s transplant section. 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 Bstbv-alszcn-ohzt disease, not otherwise specified ADENOVIRUS Routine 10/11/2021 Acute myeloblastic Results f or QUANTITATIVE, PLASMA 10:43 AM [employer] leukemia not having this procedure achieved remissi on are in the Status post stem cell result s transplant section. Szjsx-xnmrpi-glqr disease, not otherwise specified CLOT EXPIRATION DATE Routine 10/09/2021 2:21 Resu lts for PM [employer] this procedure are in the results section. TMP INTERPRETATION BMT Routine 10/09/2021 Resul ts for ABORH 10:17 AM [employer] this procedure are in the results section. BONE MARROW TRANSPLANT Routine 10/09/2021 Resul ts for ABORH REVERSE 10:17 AM [employer] this procedure are in the results section. BONE MARROW TRANSPLANT Routine 10/09/2021 Resul ts for ABORH FORWARD 10:17 AM [employer] this procedure are in the results section. TMP INTERPRETATION Routine 10/09/2021 Results f or ANTIBODY SCREEN 10:17 AM [employer] this procedu re NEGATIVE are in the results section. ANTIBODY SCREEN Routine 10/09/2021 Graft versus host Results for 10:17 AM [employer] disease this procedure Complication of stem are in the cell transplant results section. FRACTIONATED BILIRUBIN Routine 10/09/2021 Graft versus host Results for 10:17 AM [employer] disease this procedure Complication of stem are in the cell transplant results section. TOTAL PROTEIN Routine 10/09/2021 Graft versus host Results f or 10:17 AM [employer] disease this procedure Complication of stem are in the cell transplant results section. ASPARTATE Routine 10/09/2021 Graft versus host Results fo r AMINOTRANSFERASE 10:17 AM [employer] disease this procedure Complication of stem are in the cell transplant results section. ALANINE Routine 10/09/2021 Graft versus host Results fo r AMINOTRANSFERASE 10:17 AM [employer] disease this procedure Complication of stem are in the cell transplant results section. ALKALINE PHOSPHATASE Routine 10/09/2021 Graft versus host Re sults for 10:17 AM [employer] disease this procedure Complication of stem are in the cell transplant results section. ALBUMIN LEVEL Routine 10/09/2021 Graft versus host Results f or 10:17 AM [employer] disease this procedure Complication of stem are in the cell transplant results section. CALCIUM LEVEL TOTAL Routine 10/09/2021 Graft versus host Res ults for 10:17 AM [employer] disease this procedure Complication of stem are in the cell transplant results section. .GLOMERULAR FILTRATION Routine 10/09/2021 Graft versus host Results for RATE 10:17 AM [employer] disease this procedure Complication of stem are in the cell transplant results section. SERUM CREATININE Routine 10/09/2021 Graft versus host Result s for 10:17 AM [employer] disease this procedure Complication of stem are in the cell transplant results section. ELECTROLYTE PANEL Routine 10/09/2021 Graft versus host Resul ts for 10:17 AM [employer] disease this procedure Complication of stem are in the cell transplant results section. BLOOD UREA NITROGEN Routine 10/09/2021 Graft versus host Res ults for 10:17 AM [employer] disease this procedure Complication of stem are in the cell transplant results section. GLUCOSE LEVEL Routine 10/09/2021 Graft versus host Results f or 10:17 AM [employer] disease this procedure Complication of stem are in the cell transplant results section. MANUAL DIFFERENTIAL STAT 10/09/2021 Graft versus host Res ults for 10:17 AM [employer] disease this procedure Complication of stem are in the cell transplant results section. Results CBC STAT 10/09/2021 Graft versus host Results fo r 10:17 AM [employer] disease this procedure Complication of stem are in the cell transplant results section. TYPE AND SCREEN Routine 10/09/2021 Graft versus host 10:17 AM [employer] disease Complication of stem cell transplant MAGNESIUM LEVEL Routine 10/09/2021 Graft versus host Results for 10:17 AM [employer] disease this procedure Complication of stem are in the cell transplant results section. COMPREHENSIVE Routine 10/09/2021 Graft versus host METABOLIC PANEL 10:17 AM [employer] disease Complication of stem cell transplant COMPLETE BLOOD COUNT Routine 10/09/2021 Graft versus host W/ DIFFERENTIAL 10:17 AM [employer] disease Complication of stem cell transplant CLOT EXPIRATION DATE Routine 10/02/2021 9:47 Resu lts for AM [employer] this procedure are in the results section. TMP INTERPRETATION Routine 10/02/2021 9:47 Result s for ANTIBODY SCREEN AM [employer] this procedu re NEGATIVE are in the results section. ANTIBODY SCREEN Routine 10/02/2021 9:47 Graft versus host Resu lts for AM [employer] disease this procedure Complication of stem are in the cell transplant results section. ABORH Routine 10/02/2021 9:47 Graft versus host Results for AM [employer] disease this procedure Complication of stem are in the cell transplant results section. FRACTIONATED BILIRUBIN Routine 10/02/2021 9:[address] Results for AM [employer]ER disease this procedure Complication of stem are in the cell transplant results section. TOTAL PROTEIN Routine 10/02/2021 9:47 Graft versus host Result s for AM [employer] disease this procedure Complication of stem are in the cell transplant results section. ASPARTATE Routine 10/02/2021 9:47 Graft versus host Results for AMINOTRANSFERASE AM [employer]ER disease this procedure Complication of stem are in the cell transplant results section. ALANINE Routine 10/02/2021 9:47 Graft versus host Results for AMINOTRANSFERASE AM [employer] disease this procedure Complication of stem are in the cell transplant results section. ALKALINE PHOSPHATASE Routine 10/02/2021 9:47 Graft versus host Results for AM [employer] disease this procedure Complication of stem are in the cell transplant results section. ALBUMIN LEVEL Routine 10/02/2021 9:47 Graft versus host Result s for AM [employer] disease this procedure Complication of stem are in the cell transplant results section. CALCIUM LEVEL TOTAL Routine 10/02/2021 9:47 Graft versus host Results for AM [employer] disease this procedure Complication of stem are in the cell transplant results section. .GLOMERULAR FILTRATION Routine 10/02/2021 9:[address] Results for RATE AM [employer] disease this procedure Complication of stem are in the cell transplant results section. SERUM CREATININE Routine 10/02/2021 9:47 Graft versus host Res ults for AM [employer] disease this procedure Complication of stem are in the cell transplant results section. ELECTROLYTE PANEL Routine 10/02/2021 9:47 Graft versus host Re sults for AM [employer]ER disease this procedure Complication of stem are in the cell transplant results section. BLOOD UREA NITROGEN Routine 10/02/2021 9:47 Graft versus host Results for AM [employer] disease this procedure Complication of stem are in the cell transplant results section. GLUCOSE LEVEL Routine 10/02/2021 9:47 Graft versus host Result s for AM [employer] disease this procedure Complication of stem are in the cell transplant results section. MANUAL DIFFERENTIAL Routine 10/02/2021 9:47 Graft versus host Results for AM [employer] disease this procedure Complication of stem are in the cell transplant results section. Results CBC Routine 10/02/2021 9:47 Graft versus host Results for AM [employer] disease this procedure Complication of stem are in the cell transplant results section. TYPE AND SCREEN Routine 10/02/2021 9:47 Graft versus host AM [employer] disease Complication of stem cell transplant MAGNESIUM LEVEL Routine 10/02/2021 9:47 Graft versus host Resu lts for AM [employer] disease this procedure Complication of stem are in the cell transplant results section. COMPREHENSIVE Routine 10/02/2021 9:47 Graft versus host METABOLIC PANEL AM [employer] disease Complication of stem cell transplant COMPLETE BLOOD COUNT Routine 10/02/2021 9:47 Graft versus host W/ DIFFERENTIAL AM [employer] disease Complication of stem cell transplant TMP INTERPRETATION Routine 09/27/2021 Results f or ANTIBODY SCREEN 10:38 AM [employer] this procedu re NEGATIVE are in the results section. CLOT EXPIRATION DATE Routine 09/27/2021 Results for 10:38 AM [employer] this procedure are in the results section. 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 Butqm-rwomdo-xlws disease, not otherwise specified ABORH Routine 09/27/2021 Acute myeloblastic Results f or 10:38 AM [employer] leukemia not having this pro cedure achieved remissi on are in the Status post stem cell result s transplant section. 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 Zcgap-jrkumw-ucph disease, not otherwise specified ASPARTATE Routine 09/27/2021 Acute myeloblastic Results f or AMINOTRANSFERASE 10:38 AM [employer] leukemia not having this procedure achieved remissi on are in the Status post stem cell result s transplant section. Mymhl-drqqvl-kgop disease, not otherwise specified ALANINE Routine 09/27/2021 Acute myeloblastic Results f or AMINOTRANSFERASE 10:38 AM [employer] leukemia not having this procedure achieved remissi on are in the Status post stem cell result s transplant section. Minlt-twszrc-mfxl disease, not otherwise specified ALKALINE PHOSPHATASE Routine 09/27/2021 Acute myeloblastic R esults for 10:38 AM [employer] leukemia not having this pro cedure achieved remissi on are in the Status post stem cell result s transplant section. 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 Ezlsn-vgxevo-ywlc disease, not otherwise specified CALCIUM LEVEL TOTAL Routine 09/27/2021 Acute myeloblastic Re sults for 10:38 AM [employer] leukemia not having this pro cedure achieved remissi on are in the Status post stem cell result s transplant section. Hhvkz-fartot-vdiq disease, not otherwise specified .GLOMERULAR FILTRATION Routine 09/27/2021 Acute myeloblastic Results for RATE 10:38 AM [employer] leukemia not having this pro cedure achieved remissi on are in the Status post stem cell result s transplant section. Epyjk-ykryyg-lpwo disease, not otherwise specified SERUM CREATININE Routine 09/27/2021 Acute myeloblastic Resul ts for 10:38 AM [employer] leukemia not having this pro cedure achieved remissi on are in the Status post stem cell result s transplant section. Nwokf-fnygtc-xgxs disease, not otherwise specified ELECTROLYTE PANEL Routine 09/27/2021 Acute myeloblastic Resu lts for 10:38 AM [employer] leukemia not having this pro cedure achieved remissi on are in the Status post stem cell result s transplant section. Wbwku-defisk-mycn disease, not otherwise specified BLOOD UREA NITROGEN Routine 09/27/2021 Acute myeloblastic Re sults for 10:38 AM [employer] leukemia not having this pro cedure achieved remissi on are in the Status post stem cell result s transplant section. 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 Ywnwd-xpjeea-fchb disease, not otherwise specified MANUAL DIFFERENTIAL Routine 09/27/2021 Acute myeloblastic Re sults for 10:38 AM [employer] leukemia not having this pro cedure achieved remissi on are in the Status post stem cell result s transplant section. Hvtgo-xwxooo-zizo disease, not otherwise specified Results CBC Routine 09/27/2021 Acute myeloblastic Results f or 10:38 AM [employer] leukemia not having this pro cedure achieved remissi on are in the Status post stem cell result s transplant section. Nfxji-hczbay-xfbs disease, not otherwise specified TACROLIMUS LEVEL Routine 09/27/2021 Acute myeloblastic Resul ts for 10:38 AM [employer] leukemia not having this pro cedure achieved remissi on are in the Status post stem cell result s transplant section. 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 Wtyxi-httwse-edte disease, not otherwise specified MAGNESIUM LEVEL Routine 09/27/2021 Acute myeloblastic Result s for 10:38 AM [employer] leukemia not having this pro cedure achieved remissi on are in the Status post stem cell result s transplant section. 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 Ughpm-qxiinc-ijev disease, not otherwise specified URIC ACID Routine 09/27/2021 Acute myeloblastic Results f or 10:38 AM [employer] leukemia not having this pro cedure achieved remissi on are in the Status post stem cell result s transplant section. Icnsk-jpatpw-inlq disease, not otherwise specified PHOSPHORUS LEVEL Routine 09/27/2021 Acute myeloblastic Resul ts for 10:38 AM [employer] leukemia not having this pro cedure achieved remissi on are in the Status post stem cell result s transplant section. 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 FRACTIONATED BILIRUBIN Routine 09/24/2021 9:59 Complication of stem Results for AM [employer] cell transplant this procedu re are in the results section. TOTAL PROTEIN Routine 09/24/2021 9:59 Complication of stem Res ults for AM [employer] cell transplant this procedu re are in the results section. ASPARTATE Routine 09/24/2021 9:59 Complication of stem Resu lts for AMINOTRANSFERASE AM [employer] cell transplant this pro cedure are in the results section. ALANINE Routine 09/24/2021 9:59 Complication of stem Resu lts for AMINOTRANSFERASE AM [employer] cell transplant this pro cedure are in the results section. ALKALINE PHOSPHATASE Routine 09/24/2021 9:59 Complication of s tem Results for AM [employer] cell transplant this procedu re are in the results section. ALBUMIN LEVEL Routine 09/24/2021 9:59 Complication of stem Res ults for AM [employer] cell transplant this procedu re are in the results section. CALCIUM LEVEL TOTAL Routine 09/24/2021 9:[address] em Results for AM [employer] cell transplant this procedu re are in the results section. .GLOMERULAR FILTRATION Routine 09/24/2021 9:59 Complication of stem Results for RATE AM [employer] cell transplant this procedu re are in the results section. SERUM CREATININE Routine 09/24/2021 9:59 Complication of stem Results for AM [employer] cell transplant this procedu re are in the results section. ELECTROLYTE PANEL Routine 09/24/2021 9:59 Complication of stem Results for AM [employer] cell transplant this procedu re are in the results section. BLOOD UREA NITROGEN Routine 09/24/2021 9:[address] em Results for AM [employer] cell transplant this procedu re are in the results section. GLUCOSE LEVEL Routine 09/24/2021 9:59 Complication of stem Res ults for AM [employer] cell transplant this procedu re are in the results section. MANUAL DIFFERENTIAL STAT 09/24/2021 9:[address] em Results for AM [employer] cell transplant this procedu re are in the results section. Results CBC STAT 09/24/2021 9:59 Complication of stem Resu lts for AM [employer] cell transplant this procedu re are in the results section. MAGNESIUM LEVEL Routine 09/24/2021 9:59 Complication of stem R esults for AM [employer] cell transplant this procedu re are in the results section. COMPREHENSIVE Routine 09/24/2021 9:59 Complication of stem METABOLIC PANEL AM [employer] cell transplant COMPLETE BLOOD COUNT Routine 09/24/2021 9:59 Complication of s tem W/ DIFFERENTIAL AM [employer] cell transplant BLOODCULTURE Routine 09/18/2021 Chronic Results for 10:17 AM [employer]ER mmtlw-bgnakz-kndm this proce dure disease are in the results section. FRACTIONATED BILIRUBIN Routine 09/18/2021 Chronic Resul ts for 10:14 AM [employer]ER kiezm-blszgj-jmea this proce dure disease are in the results section. TOTAL PROTEIN Routine 09/18/2021 Chronic Results for 10:14 AM [employer] fdcss-sqiejj-hykx this proce dure disease are in the results section. ASPARTATE Routine 09/18/2021 Chronic Results for AMINOTRANSFERASE 10:14 AM [employer]ER yltkp-zmsnrk-zhne this p rocedure disease are in the results section. ALANINE Routine 09/18/2021 Chronic Results for AMINOTRANSFERASE 10:14 AM [employer]ER unehz-rtcvzx-nzco this p rocedure disease are in the results section. ALKALINE PHOSPHATASE Routine 09/18/2021 Chronic Results for 10:14 AM [employer]ER uztvd-hqmjdx-fhsc this proce dure disease are in the results section. ALBUMIN LEVEL Routine 09/18/2021 Chronic Results for 10:14 AM [employer]ER aizfp-ujiykr-iehc this proce dure disease are in the results section. CALCIUM LEVEL TOTAL Routine 09/18/2021 Chronic Results for 10:14 AM [employer]ER nyvpr-flqlun-lrel this proce dure disease are in the results section. .GLOMERULAR FILTRATION Routine 09/18/2021 Chronic Resul ts for RATE 10:14 AM [employer]ER rshkn-fqpjjj-cifl this proce dure disease are in the results section. SERUM CREATININE Routine 09/18/2021 Chronic Results for 10:14 AM [employer]ER bluly-wvmxzd-awae this proce dure disease are in the results section. ELECTROLYTE PANEL Routine 09/18/2021 Chronic Results fo r 10:14 AM [employer] cxklt-eameis-vype this proce dure disease are in the results section. BLOOD UREA NITROGEN Routine 09/18/2021 Chronic Results for 10:14 AM [employer]ER gyfsj-nvrmoo-okuw this proce dure disease are in the results section. GLUCOSE LEVEL Routine 09/18/2021 Chronic Results for 10:14 AM [employer] nnvkn-isjqfn-qctz this proce dure disease are in the results section. MANUAL DIFFERENTIAL Routine 09/18/2021 Chronic Results for 10:14 AM [employer] zwota-hwvueh-ftiv this proce dure disease are in the results section. Results CBC Routine 09/18/2021 Chronic Results for 10:14 AM [employer] nfdxa-rrzyyd-xodo this proce dure disease are in the results section. PHOSPHORUS LEVEL Routine 09/18/2021 Chronic Results for 10:14 AM [employer]ER mimkt-fhyjtj-myuz this proce dure disease are in the results section. URIC ACID Routine 09/18/2021 Chronic Results for 10:14 AM [employer] riihw-qmlmzi-emgm this proce dure disease are in the results section. LACTATE DEHYDROGENASE Routine 09/18/2021 Chronic Result s for 10:14 AM [employer] dvnll-irwkaa-ujcq this proce dure disease are in the results section. MAGNESIUM LEVEL Routine 09/18/2021 Chronic Results for 10:14 AM [employer]ER spset-lfqqpn-vkrh this proce dure disease are in the results section. COMPREHENSIVE Routine 09/18/2021 Chronic METABOLIC PANEL 10:14 AM [employer]ER vavfc-hqonby-thsv disease COMPLETE BLOOD COUNT Routine 09/18/2021 Chronic W/ DIFFERENTIAL 10:14 AM [employer]ER qscff-kaqxte-opqy disease TMP INTERPRETATION Routine 09/10/2021 Results f or ANTIBODY SCREEN 10:16 AM [employer] this procedu re NEGATIVE are in the results section. CLOT EXPIRATION DATE Routine 09/10/2021 Results for 10:16 AM [employer] this procedure are in the results section. ANTIBODY SCREEN Routine 09/10/2021 Graft versus host Results for 10:16 AM [employer] disease this procedure Complication of bone are in the marrow transplant, not resul ts otherwise specified section. ABORH Routine 09/10/2021 Graft versus host Results fo r 10:16 AM [employer] disease this procedure Complication of bone are in the marrow transplant, not resul ts otherwise specified section. FRACTIONATED BILIRUBIN Routine 09/10/2021 Graft versus host Results for 10:16 AM [employer] disease this procedure Complication of bone are in the marrow transplant, not resul ts otherwise specified section. TOTAL PROTEIN Routine 09/10/2021 Graft versus host Results f or 10:16 AM [employer] disease this procedure Complication of bone are in the marrow transplant, not resul ts otherwise specified section. 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 COMPREHENSIVE Routine 09/10/2021 Graft versus host METABOLIC PANEL 10:16 AM WOOL CARDER disease Complication of bone marrow transplant, not otherwise specified COMPLETE BLOOD COUNT Routine 09/10/2021 Graft versus host W/ DIFFERENTIAL 10:16 AM WOOL CARDER disease Complication of bone marrow transplant, not otherwise specified CLOT EXPIRATION DATE Routine 09/06/2021 1:28 Resu lts for PM WOOL CARDER this procedure are in the results section. TMP INTERPRETATION Routine 09/06/2021 1:28 Result s for ANTIBODY SCREEN PM WOOL CARDER this procedu re NEGATIVE are in the results section. 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 Nszwn-mwhoov-exdw disease, not otherwise specified Shortness of breath FRACTIONATED BILIRUBIN Routine 09/06/2021 1:28 Acute myeloblas tic Results for PM WOOL CARDER leukemia not having this pro cedure achieved remissi on are in the Status post stem cell result s transplant section. Rxuro-cgpmek-ytls disease, not otherwise specified Shortness of breath TOTAL PROTEIN Routine 09/06/2021 1:28 Acute myeloblastic Resul ts for PM WOOL CARDER leukemia not having this pro cedure achieved remissi on are in the Status post stem cell result s transplant section. Upfjo-cwdqry-ddsj disease, not otherwise specified Shortness of breath ASPARTATE Routine 09/06/2021 1:28 Acute myeloblastic Result s for AMINOTRANSFERASE PM WOOL CARDER leukemia not having this procedure achieved remissi on are in the Status post stem cell result s transplant section. Nnafp-ivikqt-lovo disease, not otherwise specified Shortness of breath ALANINE Routine 09/06/2021 1:28 Acute myeloblastic Result s for AMINOTRANSFERASE PM WOOL CARDER leukemia not having this procedure achieved remissi on are in the Status post stem cell result s transplant section. Mofdj-yocfaz-mmqf disease, not otherwise specified Shortness of breath ALKALINE PHOSPHATASE Routine 09/06/2021 1:28 Acute myeloblasti c Results for PM WOOL CARDER leukemia not having this pro cedure achieved remissi on are in the Status post stem cell result s transplant section. 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 Hoynz-umntwh-yxdp disease, not otherwise specified Shortness of breath .GLOMERULAR FILTRATION Routine 09/06/2021 1:28 Acute myeloblas tic Results for RATE PM WOOL CARDER leukemia not having this pro cedure achieved remissi on are in the Status post stem cell result s transplant section. Vojlz-oquqpi-cbdu disease, not otherwise specified Shortness of breath SERUM CREATININE Routine 09/06/2021 1:28 Acute myeloblastic Re sults for PM WOOL CARDER leukemia not having this pro cedure achieved remissi on are in the Status post stem cell result s transplant section. Prvzi-aybuio-lfgy disease, not otherwise specified Shortness of breath ELECTROLYTE PANEL Routine 09/06/2021 1:28 Acute myeloblastic R esults for PM WOOL CARDER leukemia not having this pro cedure achieved remissi on are in the Status post stem cell result s transplant section. 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 Zhtim-yfixkt-gfva disease, not otherwise specified Shortness of breath GLUCOSE LEVEL Routine 09/06/2021 1:28 Acute myeloblastic Resul ts for PM WOOL CARDER leukemia not having this pro cedure achieved remissi on are in the Status post stem cell result s transplant section. 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 Ukhux-sfpfrb-ksjw disease, not otherwise specified Shortness of breath TACROLIMUS LEVEL Routine 09/06/2021 1:28 Acute myeloblastic Re sults for PM WOOL CARDER leukemia not having this pro cedure achieved remissi on are in the Status post stem cell result s transplant section. Jwbzk-ohdiso-fvsk disease, not otherwise specified Shortness of breath CMV QUANT PCR Routine 09/06/2021 1:28 Acute myeloblastic Resul ts for PM WOOL CARDER leukemia not having this pro cedure achieved remissi on are in the Status post stem cell result s transplant section. Ywohd-bcaglp-zgfq disease, not otherwise specified Shortness of breath HP CARMELO-ADDISON Routine 09/06/2021 1:28 Acute myeloblastic Results for VIRUS QUANTITATIVE PCR PM WOOL CARDER leukemia not havin g this procedure ANALYSIS COLLECTION, achieved re mission are in the BLOOD Status post stem cell result s transplant section. 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 Pqdkh-nicnqu-girn disease, not otherwise specified Shortness of breath LACTATE DEHYDROGENASE Routine 09/06/2021 1:28 Acute myeloblast ic Results for PM WOOL CARDER leukemia not having this pro cedure achieved remissi on are in the Status post stem cell result s transplant section. 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 Jcpas-nzirih-wfdn disease, not otherwise specified Shortness of breath PHOSPHORUS LEVEL Routine 09/06/2021 1:28 Acute myeloblastic Re sults for PM WOOL CARDER leukemia not having this pro cedure achieved remissi on are in the Status post stem cell result s transplant section. 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 Endwn-nqamem-fqkp disease, not otherwise specified Shortness of breath HHV6 QUANT, PLASMA Routine 09/06/2021 1:28 Acute myeloblastic Results for PM WOOL CARDER leukemia not having this pro cedure achieved remissi on are in the Status post stem cell result s transplant section. Xulcg-efnhge-rnoc disease, not otherwise specified Shortness of breath TMP INTERPRETATION Routine 09/04/2021 Results f or ANTIBODY SCREEN 10:46 AM WOOL CARDER this procedu re NEGATIVE are in the results section. CLOT EXPIRATION DATE Routine 09/04/2021 Results for 10:46 AM WOOL CARDER this procedure are in the results section. 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 Results CBC STAT 09/04/2021 Graft versus host Results fo r 10:46 AM WOOL CARDER disease this procedure Complication of bone are in the marrow transplant, not resul ts otherwise specified section. TYPE AND SCREEN Routine 09/04/2021 Graft versus host 10:46 AM WOOL CARDER disease Complication of bone marrow transplant, not otherwise specified MAGNESIUM LEVEL Routine 09/04/2021 Graft versus host Results for 10:46 AM WOOL CARDER disease this procedure Complication of bone are in the marrow transplant, not resul ts otherwise specified section. COMPREHENSIVE Routine 09/04/2021 Graft versus host METABOLIC PANEL 10:46 AM WOOL CARDER disease Complication of bone marrow transplant, not otherwise specified COMPLETE BLOOD COUNT Routine 09/04/2021 Graft versus host W/ DIFFERENTIAL 10:46 AM WOOL CARDER disease Complication of bone marrow transplant, not otherwise specified after 08/31/2021 Results XR Hip 3 or 4 Views Bilateral w Pelvis (08/27/2022 1:18 PM WOOL CARDER) Anatomical Region Laterality Modality Hip, Extremity Digital Radiography Specimen (Source) Anatomical Collection Method Collection Time Re ceived Time Location / / Volume Laterality 08/27/2022 1:23 PM WOOL CARDER Impressions 08/27/2022 1:32 PM WOOL CARDER 1. Partially imaged spinal surgery showing lower lumbar spine and sacrum. Extensive fusion procedure with disc spacers and bilateral rods with pedicle screws. Bilateral iliac bolts are present showing s urrounding lucency indicating motion and loosening. The left bolt is fractured. 2. Bilateral unremarkable total hip arth roplasties. 3. Infusion pump and catheter present. Narrative 08/27/2022 1:32 PM WOOL CARDER FULL RESULT: Examination: XR HIP 3 OR 4 VW BILATERAL W PELVIS, 08/27/2022 1:18 PM. Clinical History: 61-year-old woman with myelodysplastic syndrome. Previous back surgery in 2018, right hip and left hip arthroplasties in 2013 and 2014. Indication: Pelvis pain Comparison: Portable abdomen August Technique: XR HIP 3 OR 4 VW BILATERAL W PELVIS Findings: 1. Partially imaged spinal surgery showi ng lower lumbar spine and sacrum. Extensive fusion procedure with disc spacers and bilateral rods with pedicle screws. Bilateral iliac bolts are present showing s urrounding lucency indicating motion and loosening. The left bolt is fractured. 2. Right total hip arthroplasty. Compone nts in expected position and without complication. 3. Left total hip arthroplasty. Componen ts in expected position and without complication. Procedure Note Santhosh Chamorro Jr., MD - 08/27/2022F ormatting of this note might be different from the original. FULL RESULT: Examination: XR HIP 3 OR 4 VW BILATERAL W PELVIS, 08/27/2022 1:18 PM. Clinical History: 61-year-old woman with myelodysplastic syndrome. Previous back surgery in 2018, right hip and left hip arthroplasties in 2013 and 2014. Indication: Pelvis pain Comparison: Portable abdomen August Technique: XR HIP 3 OR 4 VW BILATERAL W PELVIS Findings: 1. Partially imaged spinal surgery showi ng lower lumbar spine and sacrum. Extensive fusion procedure with disc spacers and bilateral rods with pedicle screws. Bilateral iliac bolts are present showing surrounding lucency indicating motion and loosening. The left bolt is fractured. 2. Right total hip arthroplasty. Compone nts in expected position and without complication. 3. Left total hip arthroplasty. Componen ts in expected position and without complication. IMPRESSION: 1. Partially imaged spinal surgery showi ng lower lumbar spine and sacrum. Extensive fusion procedure with disc spacers and bilateral rods with pedicle screws. Bilateral iliac bolts are present showing surrounding lucency indicating motion and loosening. The left bolt is fractured. 2. Bilateral unremarkable total hip arth roplasties. 3. Infusion pump and catheter present. Renetta Carvalho DRY KILN [facility] IMG DIAGNOSTIC IMAGING ORDER MERLY (ABNORMAL) .Serum Creatinine (08/27/2022 11:53 AM WOOL CARDER)Only the most recent of38 resultswithin the time period is included. athologist Signature Creatinine 1.14 (H) 0.51 - 0.95 [facility] mg/dL [facility] Specimen Anatomical Collection Method Collection Time Receive d Time (Source) Location / / Volume Laterality Blood 08/27/2022 11:53 08/27/2022 AM WOOL CARDER 12:44 PM WOOL CARDER Van Avitia MD LAB BLOOD ORDERABLES Performing Organization Address City/State/ZIP Code Phon e Number [facility] CANCER Unless otherwise noted, [place] [address] [place] all lab tests performed by: Division of Pathology and Laboratory Medicine Nikita5 Daily [place] (ABNORMAL) .CBC (08/27/2022 11:53 AM WOOL CARDER)Only the most recent of38 resultswithin the time period is included. athologist Signature WBC 6.8 4.0 - 11.0 ND K/uL [facility] RBC 4.00 4.00 - ND MD 5.50 M/[facility] Hgb 11.9 (L) 12.0 - ND MD 16.0 gm/dL [facility] Hct 38.2 37.0 - ND MD 47.0 % [facility] MCV 96 82 - 98 [facility] MCH 29.8 27.0 - ND MD 31.0 pg [facility] MCHC 31.2 31.0 - ND MD 36.0 gm/dL [facility] RDW-SD 55.3 (H) 35.1 - ND MD 46.3 [facility] RDW-CV 15.6 (H) 12.0 - ND MD 15.5 % [facility] Platelet count 254 140 - 440 ND K/uL [facility] MPV 10.4 4.0 - 10.4 ND fL [facility] INRBC 0.0 <=0.0 % [facility] Comment: The INRBC (instrument NRBC) value reflec ts the enumeration of nucleated red blood cells contained i n a 200uL sample of whole blood analyzed by the instrumen t. This value may differ from the NRBC value reported in a manual differential, which is based on a 100 cell differentia l. Specimen Anatomical Collection Method Collection Time Receive d Time (Source) Location / / Volume Laterality Blood 08/27/2022 11:53 08/27/2022 AM WOOL CARDER 12:14 PM WOOL CARDER Van Avitia MD LAB BLOOD ORDERABLES Performing Organization Address City/State/ZIP Code Phon e Number [facility] CANCER Unless otherwise noted, [address] all lab tests performed by: Division of Pathology and Laboratory Medicine [address] [place] [address] Clot Expiration Date (08/27/2022 11:53 AM WOOL CARDER)Only the most recent of27 results within the time period is included. Patholo gist Method Time Signature T & S 08/30/2022 [facility] Specimen Anatomical Collection Method Collection Time Receive d Time (Source) Location / / Volume Laterality Blood 08/27/2022 11:53 08/27/2022 AM WOOL CARDER 12:43 PM WOOL CARDER Van Avitia MD BLOOD BANK TEST ORDERABLES Performing Organization Address City/[facility] Phon e Number [facility]CER Unless otherwise noted, [address] all lab tests performed by: Division of Pathology and Laboratory Medicine [address] [place] [address] (ABNORMAL) Glomerular Filtration Rate (08/27/2022 11:53 AM WOOL CARDER)Only the most recent of38 resultswithin the time period is included. P athologist Signature eGFR 55 (L) >=60 [facility] mL/min/1.73 [facility] sq. m Comment: The eGFRcr is calculated with the 2020 KD-EPI creatinine equation using creatinine, patient's age, and sex for adults 18 years of age and older. Other factors, especially muscle mass, may affect accuracy and need to be considered. According to the Kidney Disease: Improvi ng Global Outcomes (KDIGO) CKD Work Group 2012 Clinical Practice Guideline, chronic kidney disease (CKD) is defined as the abnormalities of kidney structure or function, present for more than 3 months, with implications for health. CKD should be c lassified by cause, GFR category, and albuminuria category. KDIGO guidelines provide the following GFR categories Stage Description GFR mL/min/1.73 m2 G1* Normal or high >= 90 G2* Mildly decreased 60-89 G3a Mildly to moderately decreased 45-59 G3b Moderately to severely decreased 30- 44 G4 Severely decreased 15-29 G5 Kidney failure <15 *In the absence of evidence of kidney da mage, neither G1 nor G2 fulfill criteria for CKD. Specimen Anatomical Collection Method Collection Time Receive d Time (Source) Location / / Volume Laterality Blood 08/27/2022 11:53 08/27/2022 AM WOOL CARDER 12:44 PM WOOL CARDER Van Avitia MD LAB BLOOD ORDERABLES Performing Organization Address City/State/ZIP Code Phon e Number [facility] CANCER Unless otherwise noted, [address] all lab tests performed by: Division of Pathology and Laboratory Medicine [address] [facility] CMV Quant PCR (08/27/2022 11:53 AM WOOL CARDER)Only the most recent of15 resultswithin the time period is included. [facility] Method Time Signature CMV DNA PCR Target Not Target Not ND Detected Detected MARCELO IU/mL [facility] Comment: Normal Range: Target Not Detected. Reportable Range: 34.5 to 4,000,000 CM V DNA IU/mL; values between 4,000,000 to 10,000,000 CMV DNA IU/mL may be reported but these should be interpreted with caution as this range of the assay has not been internally verified. The clinical s ignificance of CMV levels at 4,000,000 IU/ml verses those above 4,000,000 is unclear. Results are expressed in CMV DNA IU/ml p lasma. Methodology: The extraction and quanti tation of cytomegalovirus (CMV) DNA in human plasma is performed using the DERRICK [employer] System. Amplification of viral DNA is achieved using polymerase chain reacti on (PCR). Internal controls are included to assess for possible amplification inhibitors. I f inhibition is detected, the specimen is tested again and if inhibition is confirmed the specimen is resulted as "Invalid". When an "Invalid" results occurs, it is recommended to wait a minimum of 7-10 days before submitting a new specimen for testing. This is an FDA-approved assay and its pe rformance characteristics were verified by the microbiology laboratory at the [facility]. Results must be interpreted within th e context of all relevant clinical and l aboratory findings. Specimen Anatomical Collection Method Collection Time Receive d Time (Source) Location / / Volume Laterality Blood 08/27/2022 11:53 08/27/2022 1:39 AM WOOL CARDER PM WOOL CARDER Van Avitia MD LAB BLOOD ORDERABLES Performing Organization Address [facility] Phon e Number [facility] Unless otherwise noted, [address] all lab tests performed by: Division of Pathology and Laboratory Medicine [address] [place] [address] Fractionated Bilirubin (08/27/2022 11:53 AM WOOL CARDER)Only the most recent of34 resultswithin the time period is included. P athologist Signature Bili Total <0.3 <=1.2 mg/dL [facility] Comment: Direct and indirect bilirubin will not b e reported when Total bilirubin result is <0.3 mg/dL Indocyanine Green (ICG) may cause falsel y elevated bilirubin results. Total and direct bilirubin must not be measured from samples containing indocyanine green. False elevation of total bilirubin can b e seen in patients with IgG concentrations above 28 g/L. Specimen Anatomical Collection Method Collection Time Receive d Time (Source) Location / / Volume Laterality Blood 08/27/2022 11:53 08/27/2022 AM WOOL CARDER 12:44 PM WOOL CARDER Van Avitia MD LAB BLOOD ORDERABLES Performing Organization Address [facility] Phon e Number [facility] Unless otherwise noted, [address] all lab tests performed by: Division of Pathology and Laboratory Medicine [address] [place] [address] TMP Interpretation Antibody Screen Negative (08/27/2022 11:53 AM WOOL CARDER)Only the most recent of27 resultswithin the time period is included. Patholo gist Method Time Signature TMP Auto Neg At the [facility] MD ABSC Interp [facility] MARCELO [facility] patient plasma shows no evidence of RBC alloantibodi es. Comment: KARL MOON, Dictated by: KARL MOON, Dictated Date/Time: 08.28.2022 9:[address] Transcribed Date/Time: 08.28.2022 9:54 AM WOOL CARDER Electronically Signed By: KARL MOON , on 08.28.2022 9:54 AM C Specimen Anatomical Collection Method Collection Time Receive d Time (Source) Location / / Volume Laterality Blood 08/27/2022 11:53 08/27/2022 AM WOOL CARDER 12:43 PM WOOL CARDER Van Avitia MD BLOOD BANK TEST ORDERABLES Performing Organization Address City/[facility] Phon e Number [facility] CANCER Unless otherwise noted, [address] all lab tests performed by: Division of Pathology and Laboratory Medicine [address] [place], [place] [address] Tacrolimus (08/27/2022 11:53 AM WOOL CARDER)Only the most recent of16 resultswithin the time period is included. [facility] gist Method Time Signature [place] LD Time 2200 [facility] [place] LD Date 08/26/2022 [facility] [place] Level Random [facility] Tacrolimus 15.0 5.0 - 20.0 [facility] ng/mL [facility] Comment: Therapeutic range 5 - 20 ng/mL for 12 ho ur trough. The range varies with the method used, type of organ transplant, time after transplant, and co- administration with other immunosuppressants. Analytical Method: Immunoassay Method Platform: Vessix Specimen Anatomical Collection Method Collection Time Receive d Time (Source) Location / / Volume Laterality Blood 08/27/2022 11:53 08/27/2022 AM WOOL CARDER 12:33 PM WOOL CARDER Van Avitia MD LAB BLOOD ORDERABLES Performing Organization Address City/[facility] Phon e Number [facility] CANCER Unless otherwise noted, [address] all lab tests performed by: Division of Pathology and Laboratory Medicine [address] [place] [address] [place] ABORh (08/27/2022 11:53 AM WOOL CARDER)Only the most recent of26 resultswithin the time period is included. athologist [facility] ABORh. O POS [facility] Specimen Anatomical Collection Method Collection Time Receive d Time (Source) Location / / Volume Laterality Blood 08/27/2022 11:53 08/27/2022 AM WOOL CARDER 12:43 PM WOOL CARDER Van Avitia MD BLOOD BANK TEST ORDERABLES Performing Organization Address City/State/ZIP Code Phon e Number [facility] CANCER Unless otherwise noted, [place] [address] [place] all lab tests performed by: Division of Pathology and Laboratory Medicine [address] [facility] (ABNORMAL) Differential (08/27/2022 11:53 AM WOOL CARDER)Only the most recent of38 resultswithin the time period is included. athologist [facility] Neutrophil % 44.0 42.0 - [facility] 66.0 % [facility] Lymphocyte % 35.3 24.0 - [facility] 44.0 % [facility] Monocyte % 13.9 (H) 2.0 - 7.0 [facility] % [facility] Eosinophil % 5.0 (H) 1.0 - 4.0 [facility] % [facility] Basophil % 0.9 0.0 - 1.0 [facility] % [facility] IGRE % 0.9 (H) 0.0 - 0.4 [facility] % [facility] Comment: IGRE % count includes Metamyelo cytes, Myelocytes, and Promyelocytes. Neutrophil Abs 3.00 1.70 - 7.30 K/uL ND [facility] Lymphocyte Abs 2.41 1.00 - 4.80 K/uL ND [facility] Monocyte Abs 0.95 (H) 0.08 - 0.70 K/uL ND MD [facility] Eosinophil Abs 0.34 0.04 - 0.40 K/uL ND MD [facility] Basophil Abs 0.06 0.00 - 0.10 K/uL ND MD [facility] IG Abs 0.06 (H) 0.00 - 0.04 K/uL ND MD CYRUS Jaquez [facility] Specimen Anatomical Collection Method Collection Time Receive d Time (Source) Location / / Volume Laterality Blood 08/27/2022 11:53 08/27/2022 AM WOOL CARDER 12:14 PM WOOL CARDER Van Avitia MD LAB BLOOD ORDERABLES Performing Organization Address City/[facility] Phon e Number [facility] CANCER Unless otherwise noted, [address] all lab tests performed by: Division of Pathology and Laboratory Medicine [address] [place] Antibody Screen (08/27/2022 11:53 AM WOOL CARDER)Only the most recent of27 resultswithin the time period is included. P athologist Signature ABSC. Negative ABSC [facility] Specimen Anatomical Collection Method Collection Time Receive d Time (Source) Location / / Volume Laterality Blood 08/27/2022 11:53 08/27/2022 AM WOOL CARDER 12:43 PM WOOL CARDER Van Avitia MD BLOOD BANK TEST ORDERABLES Performing Organization Address [facility] Phon e Number [facility] Unless otherwise noted, [address] all lab tests performed by: Division of Pathology and Laboratory Medicine [facility] [place] Uric Acid (08/27/2022 11:53 AM WOOL CARDER)Only the most recent of16 resultswithin the time period is included. P athologist Signature Uric Acid 4.8 2.4 - 5.7 [facility] mg/dL [facility] Specimen Anatomical Collection Method Collection Time Receive d Time (Source) Location / / Volume Laterality Blood 08/27/2022 11:53 08/27/2022 AM WOOL CARDER 12:44 PM WOOL CARDER Van Avitia MD LAB BLOOD ORDERABLES Performing Organization Address City/[facility] Phon e Number [facility] CANCER Unless otherwise noted, [address] all lab tests performed by: Division of Pathology and Laboratory Medicine [address] [place] (ABNORMAL) BUN (08/27/2022 11:53 AM WOOL CARDER)Only the most recent of38 resultswithin the time period is included. P athologist Signature BUN 34 (H) 6 - 23 [facility] mg/dL [facility] Specimen Anatomical Collection Method Collection Time Receive d Time (Source) Location / / Volume Laterality Blood 08/27/2022 11:53 08/27/2022 AM WOOL CARDER 12:44 PM WOOL CARDER Van Avitia MD LAB BLOOD ORDERABLES Performing Organization Address City/[facility]/ZIP Code Phon e Number [facility] CANCER Unless otherwise noted, [address] all lab tests performed by: Division of Pathology and Laboratory Medicine [address] [place] (ABNORMAL) ALT (08/27/2022 11:53 AM WOOL CARDER)Only the most recent of34 resultswithin the time period is included. P athologist Signature ALT 50 (H) <=33 U/L [facility] Specimen Anatomical Collection Method Collection Time Receive d Time (Source) Location / / Volume Laterality Blood 08/27/2022 11:53 08/27/2022 AM WOOL CARDER 12:44 PM WOOL CARDER Van Avitia MD LAB BLOOD ORDERABLES Performing Organization Address City/[facility]/ZIP [facility] Phon e Number [facility] Unless otherwise noted, [address] all lab tests performed by: Division of Pathology and Laboratory Medicine [facility] [place] (ABNORMAL) Aspartate Aminotransferase (08/27/2022 11:53 AM WOOL CARDER)Only the most recent of34 resultswithin the time period is included. P athologist Signature AST 67 (H) <=32 U/L [facility] Specimen Anatomical Collection Method Collection Time Receive d Time (Source) Location / / Volume Laterality Blood 08/27/2022 11:53 08/27/2022 AM WOOL CARDER 12:44 PM WOOL CARDER Van Avitia MD LAB BLOOD ORDERABLES Performing Organization Address City/[facility]/ZIP Code Phon e Number [facility] CANCER Unless otherwise noted, [address] all lab tests performed by: Division of Pathology and Laboratory Medicine [address] [place] Total Protein (08/27/2022 11:53 AM WOOL CARDER)Only the most recent of34 resultswithin the time period is included. P athologist Signature Total Protein 6.5 6.4 - 8.3 [facility] g/dL [facility] Specimen Anatomical Collection Method Collection Time Receive d Time (Source) Location / / Volume Laterality Blood 08/27/2022 11:53 08/27/2022 AM WOOL CARDER 12:44 PM WOOL CARDER Van Avitia MD LAB BLOOD ORDERABLES Performing Organization Address City/[facility]/ZIP Code Phon e Number [facility] CANCER Unless otherwise noted, [address] all lab tests performed by: Division of Pathology and Laboratory Medicine [address] [place] Phosphorus Level (08/27/2022 11:53 AM WOOL CARDER)Only the most recent of20 results within the time period is included. P athologist Signature Phosphorus 4.3 2.5 - 4.5 [facility] mg/dL [facility] Specimen Anatomical Collection Method Collection Time Receive d Time (Source) Location / / Volume Laterality Blood 08/27/2022 11:53 08/27/2022 AM WOOL CARDER 12:44 PM WOOL CARDER Van Avitia MD LAB BLOOD ORDERABLES Performing Organization Address City/[facility]/ZIP [facility] Phon e Number [facility] Unless otherwise noted, [address] all lab tests performed by: Division of Pathology and Laboratory Medicine [address] [place] (ABNORMAL) Alkaline Phosphatase (08/27/2022 11:53 AM WOOL CARDER)Only the most recent of 34 resultswithin the time period is included. P athologist Signature Alk Phos 127 (H) 35 - 104 [facility] U/L [facility] Specimen Anatomical Collection Method Collection Time Receive d Time (Source) Location / / Volume Laterality Blood 08/27/2022 11:53 08/27/2022 AM WOOL CARDER 12:44 PM WOOL CARDER Van Avitia MD LAB BLOOD ORDERABLES Performing Organization Address City/[facility]/ZIP [facility] Phon e Number [facility] CANCER Unless otherwise noted, [address] all lab tests performed by: Division of Pathology and Laboratory Medicine [address] [place] Magnesium Level (08/27/2022 11:53 AM WOOL CARDER)Only the most recent of35 resultswithin the time period is included. P athologist Signature Magnesium 2.3 1.6 - 2.6 [facility] mg/dL [facility] Specimen Anatomical Collection Method Collection Time Receive d Time (Source) Location / / Volume Laterality Blood 08/27/2022 11:53 08/27/2022 AM WOOL CARDER 12:44 PM WOOL CARDER Van Aviita MD LAB BLOOD ORDERABLES Performing Organization Address City/[facility] Phon e Number [facility] CANCER Unless otherwise noted, [address] all lab tests performed by: Division of Pathology and Laboratory Medicine [facility] [facility] (08/27/2022 11:53 AM WOOL CARDER)Only the most recent of20 resultswithin the time period is included. athologist Signature LDH 214 135 - 214 [facility] U/L [facility] Comment: Results greater than 1651 U/L m ay not be reliable due to matrix effect with extended dilution as it exceeds the manu facturer's recommended limit. Caution should be exercised when interpreting such valu es and done in conjunction with clinical context. Specimen Anatomical Collection Method Collection Time Receive d Time (Source) Location / / Volume Laterality Blood 08/27/2022 11:53 08/27/2022 AM WOOL CARDER 12:43 PM WOOL CARDER Van Avitia MD LAB BLOOD ORDERABLES Performing Organization Address City/[facility] Phon e Number [facility] CANCER Unless otherwise noted, [address] all lab tests performed by: Division of Pathology and Laboratory Medicine [address] [facility] Glucose Level (08/27/2022 11:53 AM WOOL CARDER)Only the most recent of38 resultswithin the time period is included. athologist Signature Glucose Level 98 70 - 99 [facility] mg/dL [facility] Comment: Effective 04/17/16, the glucose reference intervals have been updated based on [place] [employer] guidelines (Standards of Medical Care in Diabetes 2016. Diabetes Care 2016; 39: S13-S22). Fasting blood glucose: Normal: 70-99 mg/dL Impaired fasting glucose (increased risk for diabetes or pre-diabetes): 100- 125 mg/dL Diabetes mellitus: >/=126 mg/dL Random blood glucose: Normal: 70-199 mg/dL Note: Random glucose >100 mg/dL is assoc iated with increased risk for diabetes Specimen Anatomical Collection Method Collection Time Receive d Time (Source) Location / / Volume Laterality Blood 08/27/2022 11:53 08/27/2022 AM WOOL CARDER 12:44 PM WOOL CARDER Van Avitia MD LAB BLOOD ORDERABLES Performing Organization Address City/[facility]/ZIP [facility] Phon e Number [facility] CANCER Unless otherwise noted, [address] all lab tests performed by: Division of Pathology and Laboratory Medicine [address] [place] Calcium Level (08/27/2022 11:53 AM WOOL CARDER)Only the most recent of38 resultswithin the time period is included. P athologist Signature Calcium Lvl 9.0 8.4 - 10.2 [facility] mg/dL [facility] Specimen Anatomical Collection Method Collection Time Receive d Time (Source) Location / / Volume Laterality Blood 08/27/2022 11:53 08/27/2022 AM WOOL CARDER 12:44 PM WOOL CARDER Van Avitia MD LAB BLOOD ORDERABLES Performing Organization Address [facility] Phon e Number [facility] CANCER Unless otherwise noted, [address] all lab tests performed by: Division of Pathology and Laboratory Medicine [address] [place] Albumin Level (08/27/2022 11:53 AM WOOL CARDER)Only the most recent of34 resultswithin the time period is included. athologist Signature Albumin Lvl 4.0 3.5 - 5.2 [facility] gm/dL [facility] Specimen Anatomical Collection Method Collection Time Receive d Time (Source) Location / / Volume Laterality Blood 08/27/2022 11:53 08/27/2022 AM WOOL CARDER 12:44 PM WOOL CARDER Van Avitia MD LAB BLOOD ORDERABLES Performing Organization Address City/[facility] Phon e Number [facility] CANCER Unless otherwise noted, [address] all lab tests performed by: Division of Pathology and Laboratory Medicine [address] [place] Electrolyte Panel (08/27/2022 11:53 AM WOOL CARDER)Only the most recent of38 results within the time period is included. P athologist Signature Sodium Lvl 140 136 - 145 [facility] mEq/L [facility] Potassium Lvl 4.2 3.5 - 5.1 [facility] mEq/L [facility] Chloride 107 98 - 107 [facility] mEq/L [facility] CO2 26 22 - 29 [facility] mEq/L [facility] Anion Gap 7 4 - 14 [facility] mEq/L [facility] Specimen Anatomical Collection Method Collection Time Receive d Time (Source) Location / / Volume Laterality Blood 08/27/2022 11:53 08/27/2022 AM WOOL CARDER 12:44 PM WOOL CARDER Van Avitia MD LAB BLOOD ORDERABLES Performing Organization Address City/State/ZIP Code Phon e Number [facility] CANCER Unless otherwise noted, [place] [address] [place] all lab tests performed by: Division of Pathology and Laboratory Medicine [address] [facility] DXA Bone Mineral Density Appendicular Forearm Only (08/08/2022 10:53 AM WOOL CARDER) Anatomical Region Laterality Modality Spine Nuclear Medicine Specimen (Source) Anatomical Collection Method Collection Time Re ceived Time Location / / Volume Laterality 08/08/2022 10:56 AM WOOL CARDER Impressions 08/08/2022 12:21 PM WOOL CARDER Normal bone mineral density. I personally reviewed these image(s) sarita chávez with the resident's/fellow's interpretations, certify that if a procedure was performed I was physically present, and agree with the final report. Narrative 08/08/2022 12:21 PM WOOL CARDER FULL RESULT: Examination: Bone Mineral Density (DXA), 08/08/2022 Clinical History: 61-year-old postmenopa usal female with MDS. Indication: Assessment of bone mineral d ensity.. Comparison: None. Technique: Bone mineral density was obta ined using Hologic dual-energy X-ray absorptiometry. The lumbar spine and bilateral hips are not included due to surgical hardware. The left distal forearm was measured Findings: The findings are provided in t he below table(s). Bone Density: Region Exam Date BMD T- Z- g/cm2 Score Score 09/24 Forearm (Left) 08/08/2022 0. 682 -0.2 1.2 For postmenopausal women and men age 50 and over, the World Health Organization criteria for BMD interpreta tion classify patients as: Normal (T-score at or above -1.0), Osteopenia ( T-score between -1.0 and -2.5), or Osteoporosis (T-score at or be low -2.5). Procedure Note Adam Gee MD - 08/08/2022Formatting of t his note might be different from the original. FULL RESULT: Examination: Bone Mineral Density (DXA), 08/08/2022 Clinical History: 61-year-old postmenopa usal female with MDS. Indication: Assessment of bone mineral d ensity.. Comparison: None. Technique: Bone mineral density was obta ined using Hologic dual-energy X-ray absorptiometry. The lumbar spine and bilateral hips are not included due to surgical hardware. The left distal forearm was measured Findings: The findings are provided in t he below table(s). Bone Density: Region Exam Date BMD T- Z- g/cm2 Score Score 1/3 Forearm (Left) 08/08/2022 0.682 -0.2 1.2 For postmenopausal women and men age 50 and over, the World Health Organization criteria for BMD interpreta tion classify patients as: Normal (T-score at or above -1.0), Osteopenia ( T-score between -1.0 and -2.5), or Osteoporosis (T-score at or be low -2.5). IMPRESSION: Normal bone mineral density. I personally reviewed these image(s) sarita chávez with the resident's/fellow's interpretations, certify that if a procedure was performed I was physically present, and agree with the final report. Van Avitia MD IM DXA ORDERABLES Carmelo-Addison Virus Quantitative PCR Collection, Blood (07/16/2022 10:56 AM CDT)Only the most recent of6 resultswithin the time period is included. P athologist Signature Molecular Yes [facility] Diagnostics [facility] (Received) Specimen Anatomical Collection Method Collection Time Receive d Time (Source) Location / / Volume Laterality Blood 07/16/2022 10:56 07/16/2022 1:29 AM CDT PM CDT Van Avitia MD, MDA BLOOD COLLECTIONS Performing Organization Address City/State/ZIP Code Phon e Number [facility] CANCER Unless otherwise noted, [place] [address] [place] all lab tests performed by: Division of Pathology and Laboratory Medicine [address] [place] MD Carmelo-Addison Virus Quantitative PCR Interpretation and Report (07/16/2022 10:56 AM CDT)Only the most recent of6 resultswithin the time period is included. Specimen (Source) Anatomical Collection Method Collection Time Re ceived Time Location / / Volume Laterality 07/16/2022 10:56 AM CDT Narrative This result has an attachment that is no t available. Van Avitia MD, MDA [facility] ([facility] ) Vitamin D 25OH (07/16/2022 10:56 AM CDT)Only the most recent of2 resultswithin the time period is included. [facility] Vitamin D 25 OH 56 30 - 100 [facility] ng/mL [facility] CENTER Comment: Reference Range: Deficiency: <10 ng/mL Insufficiency: 10-29 ng/mL Sufficiency: 30-100 ng/mL Potential toxicity: >100 ng/mL Specimen Anatomical Collection Method Collection Time Receive d Time (Source) Location / / Volume Laterality Blood 07/16/2022 10:56 07/16/2022 AM CDT 12:07 PM CDT Van Avitia MD LAB BLOOD ORDERABLES Performing Organization Address City/[facility] Phon e Number [facility] Unless otherwise noted, [address] all lab tests performed by: Division of Pathology and Laboratory Medicine [address] [place] [address] Prothrombin Time with INR (07/16/2022 10:56 AM CDT) [facility] PT 12.9 11.9 - 14.1 [facility] INR 1.02 0.89 - 1.10 [facility] Specimen Anatomical Collection Method Collection Time Receive d Time (Source) Location / / Volume Laterality Blood 07/16/2022 10:56 07/16/2022 AM CDT 11:01 AM CDT Narrative [facility] - 11:33 AM CDT This lab cannot be scheduled at the [facility] locations due to collection/proccessing restrictions: [facility] and [facility]. Van Avitia MD LAB BLOOD ORDERABLES Performing Organization Address City/[facility] Phon e Number [facility] Unless otherwise noted, [address] all lab tests performed by: Division of Pathology and Laboratory Medicine [address] [place] [address] TSH (07/16/2022 10:56 AM CDT)Only the most recent of2 resultswithin the time period is included. [facility] TSH 1.20 0.27 - 4.20 [facility] mcunit/mL DI[facility]IC CENTER Specimen Anatomical Collection Method Collection Time Receive d Time (Source) Location / / Volume Laterality Blood 07/16/2022 10:56 07/16/2022 AM CDT 11:27 AM CDT Van Avitia MD LAB BLOOD ORDERABLES Performing Organization Address City/[facility] Code Phon e Number [facility] DIAGNOSTIC Unless otherwise noted, [address] all lab tests performed by: Division of Pathology and Laboratory Medicine [facility]5 [place] Free T4 (07/16/2022 10:56 AM CDT)Only the most recent of2 resultswithin the time period is included. athologist Signature T4 Free 1.35 0.93 - 1.70 [facility] ngdL [facility] Specimen Anatomical Collection Method Collection Time Receive d Time (Source) Location / / Volume Laterality Blood 07/16/2022 10:56 07/16/2022 AM CDT 11:27 AM CDT Van Avitia MD LAB BLOOD ORDERABLES Performing Organization Address City/[facility] Phon e Number [facility] DIAGNOSTIC Unless otherwise noted, [address] all lab tests performed by: Division of Pathology and Laboratory Medicine [facility]5 [facility] (ABNORMAL) Lipid Panel (07/16/2022 10:56 AM CDT)Only the most recent of3 results within the time period is included. athologist Signature Chol 179 <=199 mg/dL [facility] Comment: ATP III Classification of Total Choleste rol Primary Target of Therapy (in mg/dL): <200 Desirable 200-239 Borderline high >=240 High Trig 267 (H) <=149 mg/dL [facility] Comment: ATP III Classification of Serum Triglyce rides Primary Target of Therapy (in mg/dL): <150 Normal 150-199 Borderline high 200-499 High >=500 Very high Non-fasting triglycerides >200 mg/dL may be followed up with a fasting Lipid Panel. Calculated LDL-C may be falsely decreased when non-fasting triglycerides >200 mg/dL. HDL 38 (L) >=40 mg/dL [facility] LDL 88 <=100 mg/dL [facility] Comment: ATP III Classification of LDL Cholestero l Primary Target of Therapy (in mg/dL): <100 Optimal 100-129 Near optimal/above optimal 130-159 Borderline high 160-189 High >=190 Very high VLDL 53 mg/dL [facility] Specimen Anatomical Collection Method Collection Time Receive d Time (Source) Location / / Volume Laterality Blood 07/16/2022 10:56 07/16/2022 AM CDT 11:26 AM CDT Van Avitia MD LAB BLOOD ORDERABLES Performing Organization Address City/State/ZIP Code Phon e Number [facility] DIAGNOSTIC Unless otherwise noted, [place], [place] [address] CENTER all lab tests performed by: Division of Pathology and Laboratory Medicine [address] MUSIC JOURNALIST Videostroboscopy (07/11/2022 12:39 PM CDT) Narrative OLYMPUS - 07/11/2022 12:39 PM CDT Allyson Johnson, PhD 07/11/2022 1:03 PM MUSIC JOURNALIST Videostroboscopy Date/Time: 07/11/2022 12:39 PM Provider Information: Performed by: Allyson Johnson, PhD Authorized by: NAJMA Brock Indication: Indications for procedure: abnormal symp mckenzie Anesthesia: Local anesthesia used?: local anesthesia used Anesthesia: topical application Local anesthetic: lidocaine spray Sedation: Patient sedated?: patient not sedated Specimen(s) Removed: Specimen(s) removed: no specimen collect ed Estimated Blood Loss: Estimated blood loss: none Complications: Complications: none Patient Disposition: Patient disposition: discharge to home Naldo YAO MUSIC JOURNALIST ORDERABLES Performing Organization Address City/[facility] Phon e Number OLYMPUS Echocardiogram 2D Complete with Contrast (06/20/2022 2:16 PM CDT) Specimen (Source) Anatomical Collection Method Collection Time Re ceived Time Location / / Volume Laterality 06/20/2022 1:23 PM CDT Narrative ISCV - 06/20/2022 2:46 PM CDT Echocardiographic Report Interpretation Summary A complete two-dimensional transthoracic echocardiogram was performed (2D, M- mode, Spectral and color Doppler). Compared to prior study, there is no significant change. Micro-Bubbles injection performed because of poor endocardial resolution. Normal left ventricular size and systoli c function. Using an ultrasound enhancing agent and the Biplane Method of Disks, the LVEF measures 62% The right ventricle is normal in size an d function. Right ventricular systolic pressure is n ormal. There is no pericardial effusion. Left Ventricle: Normal left ventricular size and systoli c function. Using an ultrasound enhancing agent and the Biplane Method of Disks, the LVEF measures 62%. No regional wall motion abnormalities noted. I WMSI = 1.00 % Normal = 1 00 X - Cannot 1 - Normal 2 - 3 - Akinetic 4 - Dyskinetic Interpret Hyp okinetic 5 - Aneurysmal 3D imaginD volumes were not performed in this st udy. Cardiac Mechanics/Speckle Tracking Imagi ng: Speckle tracking imaging was not perform ed in this study. (GE Study). Diastology: Normal diastolic function. Right Ventricle: The right ventricle is normal in size an d function. Normal RV systolic function using TAPSE criteria. Atria: Atria are normal in size. Mitral Valve: The mitral valve is grossly normal. Tricuspid Valve: The tricuspid valve is not well visualiz ed, but is grossly normal. There is trace tricuspid regurgitation. Estimated RVSP is 25-30mmHg. Right ventricular systolic pressure is normal. Aortic Valve: The aortic valve is trileaflet. The aort ic valve opens well. Pulmonic Valve: The pulmonic valve is not well visualize d. Great Vessels: The aortic root is normal size. The infe rior vena cava was not well visualized. Pericardium/Pleural: There is no pericardial effusion. Preliminary Reviewer Preliminary Interpretation: Shahida steiner MD. MMode/2D Measurements IVSd: 0.73 cm LVIDd: 5.1 cm LVIDs: 3.1 cm LVPWd: 1.0 cm FS: 39.1 % Ao root diam: 3.2 cm Ao root area: 8.1 cm2 LA dimension: 4.0 cm LVOT diam: 2.3 cm EDV(MOD-A4C): 97.0 ml ESV(MOD-A4C): 36.3 ml LVOT area: 4.0 cm2 EF(MOD-A4C): 62.5 % EDV(MOD-A2C): 120.0 ml ESV(MOD-A2C): 44.8 ml EDV(MOD-bp): 109.2 ml EF(MOD-A2C): 62.6 % ESV(MOD-bp): 42.1 ml EF(MOD-bp): 61.5 % LAV(MOD-A2C): 54.8 ml EDV (MOD-bp) Index: 50.8 ml/m2 LAV(MOD-A4C): 72.4 ml LAV(MOD-bp): 68.7 ml LAV(MOD-bp) Indexed: 31.9 ml/m2 ESV (MOD-bp) Index: 19.6 ml/m2 RWT: 0.41 cm TAPSE (>1.6): 2.1 cm Doppler Measurements MV E max quentin: 63.4 cm/sec MV V2 max: 89.6 cm/sec MV A max quentin: 58.1 cm/sec MV max P.2 mmHg MV E/A: 1.1 MV V2 mean: 47.1 cm/sec MV mean P.0 mmHg MV V2 VTI: 26.8 cm MVA(VTI): 3.5 cm2 MV dec time: 0.24 sec Ao V2 max: 122.4 cm/sec Ao max P.0 mmHg Ao V2 mean: 78.8 cm/sec Ao mean P.8 mmHg Ao V2 VTI: 23.5 cm CRISTY(I,D): 4.0 cm2 CRISTY(V,D): 3.5 cm2 LV V1 max P.7 mmHg SV(LVOT): 94.1 ml LV V1 mean P.3 mmHg LV V1 max: 107.8 cm/sec LV V1 mean: 72.0 cm/sec LV V1 VTI: 23.5 cm Med Peak E' Quentin: 8.0 cm/sec Lat Peak E' Quentin: 9.4 cm/sec TR max quentin: 218.7 cm/sec RAP systole: 8.0 mmHg TR max P.1 mmHg RVSP(TR): 27.1 mmHg RV S Vel_phl: 16.3 cm/sec CRISTY Index (I,D): 1.9 CRISTY Index (V,D): 1.6 Dimensionless Index: 0.88 E/e' (avg): 7.3 E/e' (lat): 6.8 E/e' (sept): 8.0 Procedure Note Alo Becerra MD - 06/20/2022 Echocardiographic Report Interpretation Summary A complete two-dimensional transthoracic echocardiogram was performed (2D, M- mode, Spectral and color Doppler). Compared to prior study, there is no significant change. Micro-Bubbles injection performed because of poor endocardial resolution. Normal left ventricular size and systoli c function. Using an ultrasound enhancing agent and the Biplane Method of Disks, the LVEF measures 62% The right ventricle is normal in size an d function. Right ventricular systolic pressure is n ormal. There is no pericardial effusion. Left Ventricle: Normal left ventricular size and systoli c function. Using an ultrasound enhancing agent and the Biplane Method of Disks, the LVEF measures 62%. No regional wall motion abnormalities noted. I WMSI = 1.00 % Normal = 100 X - Cannot 1 - Normal 2 - 3 - Akinetic 4 - Dyskinetic Interpret Hypokinetic 5 - Aneurysmal 3D imaginD volumes were not performed in this st udy. Cardiac Mechanics/Speckle Tracking Imagi ng: Speckle tracking imaging was not perform ed in this study. (GE Study). Diastology: Normal diastolic function. Right Ventricle: The right ventricle is normal in size an d function. Normal RV systolic function using TAPSE criteria. Atria: Atria are normal in size. Mitral Valve: The mitral valve is grossly normal. Tricuspid Valve: The tricuspid valve is not well visualiz ed, but is grossly normal. There is trace tricuspid regurgitation. Estimated RVSP is 25-30mmHg. Right ventricular systolic pressure is normal. Aortic Valve: The aortic valve is trileaflet. The aort ic valve opens well. Pulmonic Valve: The pulmonic valve is not well visualize d. Great Vessels: The aortic root is normal size. The infe rior vena cava was not well visualized. Pericardium/Pleural: There is no pericardial effusion. Preliminary Reviewer Preliminary Interpretation: Shahida steiner MD. MMode/2D Measurements IVSd: 0.73 cm LVIDd: 5.1 cm LVIDs: 3.1 cm LVPWd: 1.0 cm FS: 39.1 % Ao root diam: 3.2 cm Ao root area: 8.1 cm2 LA dimension: 4.0 cm LVOT diam: 2.3 cm EDV(MOD-A4C): 97. 0 ml ESV(MOD-A4C): 36.3 ml LVOT area: 4.0 cm2 EF(MOD-A4C): 62.5 % EDV(MOD-A2C): 120.0 ml ESV(MOD-A2C): 44.8 ml EDV(MOD-bp): 10 9.2 ml EF(MOD-A2C): 62.6 % ESV(MOD-bp): 42 .1 ml EF(MOD-bp): 61.5 % LAV(MOD-A2C): 54.8 ml EDV (MOD-bp) I ndex: 50.8 ml/m2 LAV(MOD-A4C): 72.4 ml LAV(MOD-bp): 68.7 ml LAV(MOD-bp) Indexed: 31.9 ml/m2 ESV (MOD-bp) Index: 19.6 ml/m2 RWT: 0.41 cm TAPSE (>1.6): 2.1 cm Doppler Measurements MV E max quentin: 63.4 cm/sec MV V2 max: 89.6 cm/sec MV A max quentin: 58.1 cm/sec MV max P.2 mmHg MV E/A: 1.1 MV V2 mean: 47.1 cm/sec MV mean P.0 mmHg MV V2 VTI: 26.8 cm MVA(VTI): 3.5 cm2 MV dec time: 0.24 sec Ao V2 max: 12 2.4 cm/sec Ao max P.0 mmHg Ao V2 mean: 78.8 cm/sec Ao mean P.8 mmHg Ao V2 VTI: 23.5 cm CRISTY(I,D): 4.0 cm2 CRISTY(V,D): 3.5 cm2 LV V1 max P.7 mmHg SV(LVOT): 94.1 ml LV V1 mean P.3 mmHg LV V1 max: 107.8 cm/sec LV V1 mean: 72.0 cm/sec LV V1 VTI: 23.5 cm Med Peak E' Quentin: 8.0 cm/sec Lat Pea k E' Quentin: 9.4 cm/sec TR max quentin: 218.7 cm/sec RAP systole: 8.0 mmHg TR max P.1 mmHg RVSP(TR): 27.1 mmHg RV S Vel_phl: 16.3 cm/sec CRISTY Index (I,D): 1.9 CRISTY Index (V,D): 1.6 Dimensionless I ndex: 0.88 E/e' (avg): 7.3 E/e' (lat): 6.8 E/e' (sept): 8.0 Mala Ibarra DRY KILN BURNER CV ECHO ORDERABLES Performing Organization Address City/State/ZIP Code Phon e Number ISCV (ABNORMAL) SPIROMETRY W/O DILATORS, DLCO AND BODY PLETHSMOGRAPHIC LUNG VOLUMES (05/30/2022 3:05 PM CDT) Analysis Performed At Patho logist Time Signature FVC (L) pre 2.364 (L) 2.847 - 05/30/2022 [place] 4.342 L 3:13 PM CDT FEV1 (L) pre 1.860 (L) 2.143 - 05/30/2022 [place] 3.407 L 3:13 PM CDT FEV1/FVC (%) 78.690 68.052 - 05/30/2022 [place] pre 87.641 % 3:13 PM CDT DLCO_SB 15.423 (L) 16.605 - 05/30/2022 [place] ml/(min*mmHg) 36.771 3:13 PM CDT ml/(min*mm Hg) DLCOc_SB 16.285 (L) 16.605 - 05/30/2022 [place] ml/(min*mmHg) 36.771 3:13 PM CDT ml/(min*mm Hg) TLC (L) 4.745 4.377 - 05/30/2022 [place] 6.351 L 3:13 PM CDT RV (L) 2.302 1.459 - 05/30/2022 [place] 2.611 L 3:13 PM CDT RV/TLC (%) 48.514 30.110 - 05/30/2022 [place] 49.290 % 3:13 PM CDT FVC (% pred) 66 % 05/30/2022 [place] pre 3:13 PM CDT FEV1 (%pred) 67 % 05/30/2022 [place] pre 3:13 PM CDT FEV1/FVC (% 101 % 05/30/2022 [place] pred) pre 3:13 PM CDT TLC (% pred) 88 % 05/30/2022 [place] 3:13 PM CDT RV (% pred) 113 % 05/30/2022 [place] 3:13 PM CDT RV/TLC (% 122 % 05/30/2022 [place] pred) 3:13 PM CDT DLCO_SB (% 58 % 05/30/2022 [place] pred) 3:13 PM CDT DLCOc_SB (% 61 % 05/30/2022 [place] pred) 3:13 PM CDT Specimen (Source) Anatomical Collection Method Collection Time Re ceived Time Location / / Volume Laterality 05/30/2022 2:39 PM CDT Narrative This result has an attachment that is no t available. Canelo Alexandre MD PFT ORDERABLES Performing Organization Address City/State/ZIP Code Phon e Number [place] EKG, 12-Lead (Scheduled) (05/24/2022) Specimen (Source) Anatomical Location Collection Method / Collectio n Time Received Time / Laterality Volume Narrative This result has an attachment that is no t available. Mala Ibarra APN ECG ORDERABLES Performing Organization Address City/State/ZIP Code Phon e Number [facility] I[facility] HHV6 Quant, Plasma (03/14/2022 12:18 PM CDT)Only the most recent of7 results within the time period is included. [facility] Method Time Signature HHV6 Not Detected Not Detected TOMMIE JAIME Plasma-Viraco copies/mL [facility] CANCER [place] Comment: Assay Range: 188 copies/mL to 1.00E+08 c opies/mL The limit of quantitation (LOQ) is 188 c opies/mL. HHV-6 DNA detected below the LOQ will be reported as Detect ed:<188 copies/mL. This test was developed and its performa nce characteristics determined by [employer]. It has n ot been cleared or approved by the U.S. Food and Drug Administration . Results should be used in conjunction with clinical findings, and should not form the sole basis for a diagnosis or treatment decis ion. Performed At: [employer] [facility] [employer] [address] [place] [address] Philanthropy Officer: Butch Newell Ph.D., B CLD (ABB) CLIA#: [id number] Phone: Specimen Anatomical Collection Method Collection Time Receive d Time (Source) Location / / Volume Laterality Blood 03/14/2022 12:18 03/15/2022 PM CDT 10:31 AM CDT Lyndsay GREGG MICROBIOLOGY - GENERAL ORDER MERLY Performing Organization Address City/State/ZIP Code Phon e Number [facility] CANCER Unless otherwise noted, [address] all lab tests performed by: Division of Pathology and Laboratory Medicine [facility]5 [facility] Adenovirus Quant, Plasma (03/14/2022 12:18 PM CDT)Only the most recent of7 resultswithin the time period is included. [facility] Method Time Signature ADV Not Detected Not Detected ND Plasma-Viraco copies/mL [facility] Comment: Assay Range: 190 copies/mL to 1.00E+10 c opies/mL The limit of quantitation (LOQ) is 190 c opies/mL. Adenovirus DNA detected below the LOQ will be reported as Detected:<190 copies/mL. This test was developed and its performa nce characteristics determined by [employer]. It has n ot been cleared or approved by the U.S. Food and Drug Administration . Results should be used in conjunction with clinical findings, and should not form the sole basis for a diagnosis or treatment decis ion. Performed At: [employer] [id number] [address] Philanthropy Officer: Butch Newell Ph.D., B CLD (ABB) CLIA#: [id number] Phone: Specimen Anatomical Collection Method Collection Time Receive d Time (Source) Location / / Volume Laterality Blood 03/14/2022 12:18 03/15/2022 PM CDT 10:31 AM CDT Lyndsay GREGG MICROBIOLOGY - GENERAL ORDER MERLY Performing Organization Address City/State/ZIP Code Phon e Number [facility] CANCER Unless otherwise noted, [place] [address] CENTER all lab tests performed by: Division of Pathology and Laboratory Medicine [address] [place] (ABNORMAL) SPIROMETRY W/O DILATORS, DLCO AND BODY PLETHSMOGRAPHIC LUNG VOLUMES (02/21/2022 1:22 PM CDT) Analysis Performed At Patho logist Time Signature FVC (L) pre 2.267 (L) 2.806 - 02/21/2022 [place] 4.283 L 1:21 PM CDT FEV1 (L) pre 1.759 (L) 2.111 - 02/21/2022 [place] 3.360 L 1:21 PM CDT FEV1/FVC (%) 77.601 68.052 - 02/21/2022 [place] pre 87.641 % 1:21 PM CDT DLCO_SB 14.440 (L) 16.858 - 02/21/2022 [place] ml/(min*mmHg) 37.024 1:21 PM CDT ml/(min*mm Hg) TLC (L) 4.505 4.311 - 02/21/2022 [place] 6.285 L 1:21 PM CDT RV (L) 2.126 1.441 - 02/21/2022 [place] 2.593 L 1:21 PM CDT RV/TLC (%) 47.192 30.110 - 02/21/2022 [place] 49.290 % 1:21 PM CDT FVC (% pred) 64 % 02/21/2022 [place] pre 1:21 PM CDT FEV1 (%pred) 64 % 02/21/2022 [place] pre 1:21 PM CDT FEV1/FVC (% 100 % 02/21/2022 [place] pred) pre 1:21 PM CDT TLC (% pred) 85 % 02/21/2022 [place] 1:21 PM CDT RV (% pred) 105 % 02/21/2022 [place] 1:21 PM CDT RV/TLC (% 119 % 02/21/2022 [place] pred) 1:21 PM CDT DLCO_SB (% 54 % 02/21/2022 [place] pred) 1:21 PM CDT Specimen (Source) Anatomical Collection Method Collection Time Re ceived Time Location / / Volume Laterality 02/21/2022 1:07 PM CDT Narrative This result has an attachment that is no t available. Marlen Little PARLOR CHAPERONE PFT ORDERABLES Performing Organization Address City/[facility]/ZIP Code Phon e Number [facility] Add-On Test (01/24/2022 2:59 PM CDT) [facility] Method Time Signature Ordered Test Added [facility] Test Needed tacrolimus [facility] Specimen Anatomical Collection Method Collection Time Receive d Time (Source) Location / / Volume Laterality Existing 01/24/2022 2:59 PM 2 3:00 CDT PM CDT Lyndsay GREGG LAB BLOOD ORDERABLES Performing Organization Address City/[facility] Phon e Number [facility] CANCER Unless otherwise noted, [place] [address] [place] all lab tests performed by: Division of Pathology and Laboratory Medicine [facility] Blood Culture (01/21/2022 6:19 AM CDT)Only the most recent of9 resultswithin the time period is included. Component Value Ref Test Analysis Performed At [facility] Range Method Time Signature Final Report No growth [facility] Path Review - Immunity and antibiotic use may render culture negative. Ongoing infection requires repeat culture. The results have been reviewed and electronically signed by Pathologist: ND MD Fermin/Madi Rodrgiuez MD, PhD #[id number] [facility] Specimen Anatomical Collection Method Collection Time Receive d Time (Source) Location / / Volume Laterality Blood 01/21/2022 6:19 AM 2 7:44 (Venipuncture-Ri CDT AM CDT ght) Comment: arm Rosanne Weaver APN MICROBIOLOGY - GENERAL ORDER MERLY Performing Organization Address City/[facility]/ZIP [facility] Phon e Number [facility] CANCER Unless otherwise noted, [address] all lab tests performed by: Division of Pathology and Laboratory Medicine [address] EKG, 12-Lead (Portable) (01/21/2022) Specimen (Source) Anatomical Location Collection Method / Collectio n Time Received Time / Laterality Volume Narrative This result has an attachment that is no t available. Solomon Figueroa PARLOR CHAP[employer]ONE ECG ORDERABLES Performing Organization Address City/[facility]/ZIP Code Phon e Number K[facility]ADIJAH IECG Vancomycin Trough Draw 30 min before the fourth dose (01/20/2022 5:23 AM CDT) P athologist Signature Vanco Trough 14.6 5.0 - 20.0 ND [facility] mcg/mL [facility]ENTER Comment: Toxic Trough Level: >20 mcg/mL Vanco Tr Dose Time See note ND MD MARIO ALBERTO CAPPS [facility] Comment: Level, date, and time of previous dose i s not available for this sample. The date reported is th e sample collection date. Vanco Tr Dose Date 01/20/2022 ND MD JULES SNOW [facility] Comment: Level, date, and time of previous dose i s not available for this sample. The date reported is th e sample collection date. Specimen Anatomical Collection Method Collection Time Receive d Time (Source) Location / / Volume Laterality Blood 01/20/2022 5:23 AM 2 5:38 CDT AM CDT Narrative [facility] - 2 6:18 AM CDT Draw 30 min before the fourth dose Brandt Armas MD LAB BLOOD ORDERABLES Performing Organization Address City/[facility] Phon e Number [facility] CANCER Unless otherwise noted, [address] all lab tests performed by: Division of Pathology and Laboratory Medicine [address] VRE Culture (01/19/2022 6:04 PM CDT) Component Value Ref Test Analysis Performed At Patholo gist Range Method Time Signature Final Report No Vancomycin ND [facility] Enterococci CANCER [facility] CENTER Path Review - The results have been review ed and electronically signed by Pathologist: ND MD MARIELENA Rodriguez MD, PhD #[id number] [facility] Specimen Anatomical Collection Method Collection Time Receive d Time (Source) Location / / Volume Laterality Rectal Swab 01/19/2022 6:04 PM 2 7:01 CDT PM CDT Narrative [facility] - 2 3:34 PM CDT 10:00 AM Rosanne Weaver APN MICROBIOLOGY - GENERAL ORDER MERLY Performing Organization Address City/[facility] Phon e Number [facility] CANCER Unless otherwise noted, [address] all lab tests performed by: Division of Pathology and Laboratory Medicine [facility] [address] Tobramycin Rdm (01/19/2022 1:14 AM CDT) athologist Signature Tobra Lvl 2.54 mcg/mL [facility] Comment: No reference ranges established for rand om levels, please refer to trough and/or peak levels provided: Toxic random level: >10 mcg/mL Therapeutic Trough Level: <=2 mcg/mL Toxic Trough Level: >2 mcg/mL Therapeutic Peak Level: 5-10 mcg/mL Toxic Peak Level: >10 mcg/mL Tobra Ds Dt 01/19/2022 [facility] CA [facility] CENTER Tobra Ds Tm see note [facility] CAN [facility] CENTER Comment: Level, date, and time of previous dose i s not available for this sample. The date reported is sample collection date. Specimen Anatomical Collection Method Collection Time Receive d Time (Source) Location / / Volume Laterality Blood 01/19/2022 1:14 AM 2 2:16 CDT AM CDT Narrative [facility] - 2 2:36 AM CDT Please draw level 10 hours after complet ion of tobramycin infusion. Brandt Armas MD LAB BLOOD ORDERABLES Performing Organization Address City/[facility] Phon e Number [facility] CANCER Unless otherwise noted, [address] all lab tests performed by: Division of Pathology and Laboratory Medicine [facility] [address] [place] RMVL GEORGE CVC W/O SUBQ PORT/PHARM SPEC (01/18/2022 10:26 AM CDT) Narrative Alexandra Rader PA - 01/18/2022 10:26 AM C CRISTINO Carney 01/18/2022 11:17 AM Procedure: tunneled catheter removal Date/Time: 01/18/2022 10:26 AM Laterality: right Location: chest Provider Information: Authorized by: Rosanne Weaver APN Performed by: CRISTINO Clements Clinical Nurse Specialist present: no Patient Diagnosis: Pre-operative patient diagnosis: MDS, ba cteremia Post-operative diagnosis: unchanged Indications: Indications: infection Pre-Procedure Note: Patient examined pre-procedure: yes Chart reviewed pre-procedure, including labs, images, history and physical exam: yes seismic interpreter: no Pre-procedure patient condition: alert Anesthesia: Anesthesia: local infiltration Local anesthetic: lidocaine 1% without e pinephrine Anesthetic total (ml): 20 Sedation: Patient sedated?: no Port/Tunneled Catheter Removal: Preparation: equipment prepared, patient ready for procedure and removal site prepped and cleaned with aseptic te chnique Skin prep agent dried: skin prep agent c ompletely dried prior to procedure Sterile barriers: maximum sterile etienne rs were used: cap, mask, sterile gown, sterile gloves, and large sterile sheet Hand hygiene: hand hygiene was performed prior to port removal Patient position: flat Instruments used: port removal tray Area adequately anesthetized prior to in cision: yes Incision made with scalpel: no Electrocautery used to minimally dissect tissue: no Blunt dissection with curved hemostats u sed to free tissue: yes Catheter successfully freed from membran e cuff: yes Catheter removed intact: yes Hemostasis achieved: yes Wound irrigated with sterile saline: yes Wound sutured and all layers approximate d: yes Suture type: vicryl and monocryl Suture size used: 3-0 and 4-0 Steri-strips placed: yes Sterile dressing applied: sterile dressi ng applied per protocol Estimated blood loss: none Specimen(s) Removed: Specimen(s) removed: no specimen collect ed Post-procedure: Post-procedure: dressing applied Patient condition: patient tolerated the procedure well with no immediate complications, patient does not report a dverse symptoms, patient remained hemodynamically stable throughout the pr ocedure and patient is warm and well perfused Responsiveness: comfortable Patient disposition: remain in inpatient bed Comments: The right internal jugular vein catheter /reservoir port was removed intact and discarded per institutional policy. Rosanne Weaver APN IV THERAPY ORDERABLES (ABNORMAL) Urinalysis with Microscopic (01/17/2022 11:07 PM CDT) P athologist Signature UA WBC <1 0 - 2 /HPF [facility] UA RBC 3 (H) 0 - 2 /HPF [facility] UA Mucous NOT SEEN Not [facility] Seen-Trace [facility] /HPF UA Bacteria NOT SEEN NOT SEEN [facility] /[facility] UA Squam Epi OCC None-Occas [facility] ional /[facility] Specimen Anatomical Collection Method Collection Time Receive d Time (Source) Location / / Volume Laterality Urine 01/17/2022 11:07 01/17/2022 PM CDT 11:13 PM CDT Narrative [facility] - 2 1:19 AM CDT Some reporting parameters within the Urinalysis test have changed due to the implementation of new in strumentation in the [facility], allowi ng greater sensitivity of measurement. Urinalysis results reported by the [facility] using existing instrumentation, as well as Urinalysis t esting performed manually or by backup methodology at the [facility] will remain relatively unchanged. New reporting parameters and units will now be reported for all campuses. Alex Farrell MD URINE ORDERABLES Performing Organization Address City/State/ZIP Code Phon e Number [facility] CANCER Unless otherwise noted, [place] [address] [place] all lab tests performed by: Division of Pathology and Laboratory Medicine Nikita5 Daily [place] (ABNORMAL) Urinalysis w/Microscopic if Indicated (01/17/2022 11:07 PM CDT) Patholo gist Method Time Signature UA Color Yellow [facility] UA Appear Hazy (A) Clear [facility] UA Glucose NEG NEG mg/dL [facility] UA Bili NEG NEG [facility] UA Ketones NEG NEG mg/dL [facility] UA Spec Grav 1.014 1.003 - [facility] 1.035 [facility] UA Blood NEG NEG [facility] UA pH 5.0 5.0 - 9.0 [facility] UA Protein NEG NEG mg/dL [facility] UA Urobilinogen NEG NEG [facility] UA Nitrite NEG NEG [facility] UA Leuk Est NEG NEG [facility] Specimen Anatomical Collection Method Collection Time Receive d Time (Source) Location / / Volume Laterality Urine 01/17/2022 11:07 01/17/2022 PM CDT 11:13 PM CDT Moe Bennett MD URINE ORDERABLES Performing Organization Address City/State/ZIP Code Phon e Number [facility] CANCER Unless otherwise noted, [address] all lab tests performed by: Division of Pathology and Laboratory Medicine [facility] [facility] ([facility]) Urine Culture (01/17/2022 11:07 PM CDT) Component Value Ref Test Analysis Performed At Patholo gist Range Method Time Signature Final Report <10,000 cfu/ml Normal site joni present. ND Generally of low significance. MARCELO Correlate with clinical data and culture history. [facility] Path Review - The results have been review ed and electronically signed by Pathologist: ND Urine Enrrique Henson MD, PhD #[id number] [facility] Specimen Anatomical Collection Method Collection Time Receive d Time (Source) Location / / Volume Laterality Urine 01/17/2022 11:07 01/17/2022 PM CDT 11:41 PM CDT Moe Bennett MD MICROBIOLOGY - GENERAL ORDER MERLY Performing Organization Address City/[facility]/ZIP Code Phon e Number [facility] CANCER Unless otherwise noted, [address] all lab tests performed by: Division of Pathology and Laboratory Medicine [address] [facility] (ABNORMAL) POC VBG+Lac (01/17/2022 5:10 PM CDT) P athologist Signature POC VB pH 7.40 7.31 - POC [facility] 7.41 POC VB pCO2 28 (L) 41 - 51 POC [facility] mmHg POC VB pO2 56 mmHg POC [facility] POC VB TCO2 18 (L) 24 - 29 [facility]OC [facility] mEq/L POC VB Bicarb 17 (L) 23 - 28 [facility] mmol/L POC VB Base Ex -6 (L) -2 - 3 POC [facility] mmol/L POC VB O2 Sat 89 % POC [facility] POC VB LAC 1.4 0.9 - 1.7 POC [facility] mmol/L Comment: Method description: The i-STAT is an gregorio lyzer used for in vitro quantification of various analytes in whole blood. The device uses a single disposable cartridge which contains microfabricated sensors, a calibration solution, fluidics system, and a waste chamber. Each test cartridge contains ch emically sensitive biosensors on a silicon chip that are configured to perform specific tests. The microfabricated sensors measure analyte concentration by an electrochemical assay. POC Sample Type Venous POC [facility] POC Clean Dev Yes POC [facility] Performing Lab [facility] POC TELCO R Comment: [facility], [address] [facility], [place] [address]; Lab Direct or: Caro Fisher MD Specimen Anatomical Collection Method Collection Time Receive d Time (Source) Location / / Volume Laterality Blood 01/17/2022 5:10 PM 5:10 CDT PM CDT Moe Bennett MD POCT ORDERABLES - DEVICE Performing Organization Address City/State/ZIP Code Phon e Number POC [facility] X-ray Chest 1 View (01/17/2022 5:00 PM CDT) Anatomical Region Laterality Modality Chest Digital Radiography Specimen (Source) Anatomical Collection Method Collection Time Re ceived Time Location / / Volume Laterality 01/17/2022 5:05 PM CDT Impressions 01/17/2022 5:08 PM CDT Pleural adhesions are visualized in bilateral lung bases. No acute infiltrate is suspected. Narrative 01/17/2022 5:08 PM CDT FULL RESULT: Examination: XR CHEST 1 VW, 01/17/2022 5: 00 PM Clinical History: Myelodysplastic syndro me Indication: Fever Comparison: Chest CT October 25, 2021, c hest radiography August 09, 2021, June 24, 2019 Technique: Anteroposterior radiograph of the chest. Findings: Pleural adhesions are again visualized i n bilateral lung bases. No acute infiltrates or effusions are detected. Heart size is within normal limits. Fixation rods extending the majority of the thoracic s pine and a lower cervical fixation plate is also present with no gross indication of hardware failure. Right internal jugular port catheter wit h tip projecting over the cavoatrial junction. Procedure Note Barbara Weir MD - 01/17/2022Forma tting of this note might be different from the original. FULL RESULT: Examination: XR CHEST 1 VW, 01/17/2022 5: 00 PM Clinical History: Myelodysplastic syndro me Indication: Fever Comparison: Chest CT October 25, 2021, c hest radiography August 09, 2021, June 24, 2019 Technique: Anteroposterior radiograph of the chest. Findings: Pleural adhesions are again visualized i n bilateral lung bases. No acute infiltrates or effusions are detected. Heart size is within normal limits. Fixation rods extending the majority of the thoracic spine and a lower cervical fixation plate is also present with no gross indication of hardware failure. Right internal jugular port catheter wit h tip projecting over the cavoatrial junction. IMPRESSION: Pleural adhesions are visualized in bila teral lung bases. No acute infiltrate is suspected. Alex Farrell MD IMG DIAGNOSTIC IMAGING ORDER MERLY Respiratory Viral Panel + COVID-19, Nasopharyngeal Swab (01/17/2022 4:46 PM CDT) [facility] Method Time Signature Adenovirus Not Not [place] MD Detected Detected [facility] Coronavirus 229E Not Not [facility] MD Detected Detected [facility] Coronavirus HKU1 Not Not [facility] MD Detected Detected [facility] Coronavirus NL63 Not Not [facility] MD Detected Detected [facility] Coronavirus OC43 Not Not [facility] MD Detected Detected [facility] COVID19 Not Not [facility] MD (SARS-CoV-2) Detected Detected [facility] Human Not Not [facility] MD Metapneumovirus Detected Detected [facility] Human Not Not [facility] MD Rhinovirus/Enterov Detected Detected [facility] Influenza A Not Not [facility] MD Detected Detected [facility] Influenza A H1 Not Not [facility] MD Detected Detected [facility] Influenza A H1 Not Not [facility] MD 2009 Detected Detected [facility] Influenza A H3 Not Not [facility] MD Detected Detected [facility] Influenza B Not Not [facility] MD Detected Detected [facility] Parainfluenza 1 Not Not [facility] MD Detected Detected [facility] Parainfluenza 2 Not Not [facility] MD Detected Detected [facility] Parainfluenza 3 Not Not [facility] MD Detected Detected [facility] Parainfluenza 4 Not Not [facility] MD Detected Detected [facility] Respiratory Not Not [facility] MD Syncytial Virus Detected Detected [facility] Bordetella Not Not [facility] MD Parapertussis Detected Detected [facility] Bordetella Not Not [facility] MD pertussis Detected Detected [facility] Chlamydiophila Not Not [facility] MD pneumoniae Detected Detected [facility] Mycoplasma Not Not [facility] MD pneumoniae Detected Detected [facility] Specimen (Source) Anatomical Collection Method Collection Time Re ceived Time Location / / Volume Laterality Nasopharyngeal Swab 01/17/2022 4:46 01/17 PM CDT 5:22 PM CDT [facility] - 2 6:47 PM CDT The BioFire RP2.1 is a real-time, nested multiplexed polymerase chain reaction test designed to simul taneously identify nucleic acids from 22 different viruses and bacteria associated with respiratory tract infection, including SARS-CoV-2, from a single nasopharyngeal swab (FORENSIC PATHOLOGIST) specimen obtai bradley from individuals suspected of respiratory tract infections, including COVID-19. Results must be interpreted within the c ontext of all relevant clinical and laboratory findings and should not form the sole basis for a diagnosis or treatment decision. Positive results do not rule out coninfection with other organisms. Nega tive results in the setting of a respiratory illness may be due to infection with pathogens that are not detected by this panel, or a lower respiratory tract infection that may not be detected by an FORENSIC PATHOLOGIST specimen. Internal controls are used to monitor al l stages of the test process and assess for possible amplification inhibitors. If inhibition is detected, testing is repeated and if inhibition is confirmed the s pecimen is resulted as "Invalid". When a n "Invalid" result occurs, it is recommended to wait 3 days before submitting a new specimen for testing if clinically indicated. This assay has been approved by the FDA for use in laboratories that have been CLIA-certified to perform moderate-complexity and high-complexity tests. The Microbiology Laboratory at [facility], CLIA Accreditation #[id number] and CAP Accreditation #[id number], verified the per formance characteristics of this assay. [facility] at [facility] performs the assay using the [employer] System. The BioFire RP 2.1 is a real-time, nested multiplexed p olymerase chain reaction test designed to simultan eously identify nucleic acids from 22 different viruses and bacteria associated with respiratory tract infection, including SARS-CoV-2, from a single nasopharynge al swab (FORENSIC PATHOLOGIST) specimen obtained from ind ividuals suspected of respiratory tract infection s, including COVID-19. Results must be interpreted within the c ontext of all relevant clinical and laboratory findings and should not form the sole basis for a diagnosis or treatment decision. Positive results do not rule out coninfection with other organisms. Nega tive results in the setting of a respiratory illness may be due to infection with pathogens that are not detected by this panel, or a lower respiratory tract infection that may not be detected by an FORENSIC PATHOLOGIST specimen. Internal controls are used to monitor al l stages of the test process and assess for possible amplification inhibitors. If inhibition is detected, testing is repeated and if inhibition is confirmed the s pecimen is resulted as "Invalid". When a n "Invalid" result occurs, it is recommended to wait 3 days before submitting a new specimen for testing if clinically indicated. This assay has been approved by the FDA for use in laboratories that have been CLIA-certified to perform moderate-complexity and high-complexity tests. The Microbiology Laboratory at [facility], CLIA Accreditation #[id number] and CAP Accreditation #[id number], verified the per formance characteristics of this assay. [facility] at [facility] performs the assay using the [employer] System. Alex Farrell MD MICROBIOLOGY - GENERAL ORDER MERLY Performing Organization Address City/State/ZIP Code Phon e Number [facility] Unless otherwise noted, [place] [address] [place] all lab tests performed by: Division of Pathology and Laboratory Medicine [address] [place] (ABNORMAL) Procalcitonin (PCT) (01/17/2022 4:46 PM CDT) athologist Signature Procalcitonin 0.95 (H) <=0.08 [facility] ng/[facility] Comment: Procalcitonin > 2.00 ng/mL: Procalcit onin levels above 2.00 ng/mL are highly suggestive of a high risk for systematic bacterial infection/ severe sepsis and/or septic shock. Procalcitonin < 0.50 ng/mL: Procalcito sha levels below 0.50 ng/mL are at low risk for progression to severe sepsis and/ or septic shock. Procalcitonin (ProCT) between 0.15 and 2 .0 ng/mL do not exclude infection, because localized infections (without systemic signs) may be associated with such low levels. Results greater than 400 ng/mL may not b e reliable due to the matrix effect with extended dilution as it exceeds the aircraft assembler's recommended limit. Caution should be exercised when interpreting such values and done in conjunction with clinical context. Specimen Anatomical Collection Method Collection Time Receive d Time (Source) Location / / Volume Laterality Blood 01/17/2022 4:46 PM 2 5:05 CDT PM CDT Alex Farrell MD LAB BLOOD ORDERABLES Performing Organization Address City/[facility]/ZIP [facility] Phon e Number [facility] CANCER Unless otherwise noted, [address] all lab tests performed by: Division of Pathology and Laboratory Medicine [address] [place] [address] CRP (C-reactive protein) (01/17/2022 4:46 PM CDT) P athologist Signature CRP 3.73 mg/L [facility] Comment: Reference ranges for HS CRP assay are as follows: Reference ranges when used to assess car diac risk: <1.00 mg/L Low cardiovascular risk 1.00-3.00 mg/L Average cardiovascular risk >3.00 mg/L High cardiovascular risk. Reference ranges when used to assess inf lammatory responses: Less than or equal to 10.00 mg/L. Specimen Anatomical Collection Method Collection Time Receive d Time (Source) Location / / Volume Laterality Blood 01/17/2022 4:46 PM 2 5:05 CDT PM CDT Alex Farrell MD LAB BLOOD ORDERABLES Performing Organization Address [facility] Phon e Number [facility] CANCER Unless otherwise noted, [address] all lab tests performed by: Division of Pathology and Laboratory Medicine [address] [place] [address] CT Head without Contrast (01/17/2022 4:28 PM CDT) Anatomical Region Laterality Modality Head Computed Tomography Specimen (Source) Anatomical Collection Method Collection Time Re ceived Time Location / / Volume Laterality 01/17/2022 4:41 PM CDT Impressions 01/17/2022 4:55 PM CDT No acute intracranial abnormality. Narrative 01/17/2022 4:55 PM CDT FULL RESULT: Examination: CT brain without contrast o n 01/17/2022 4:28 PM Clinical History: Acute myeloblastic judy kemia Indication: Cancer complication or comor bidity Comparison: MRI brain without and with c ontrast 06/28/2021 Technique: CT brain without contrast Findings: There is no sign of mass effec t or midline shift. No large volume intracranial hemorrhage or extra axial fluid collection is present. There is no sign of acute territorial infarction. The vent ricular size is stable. The bony structu res are intact. Procedure Note Basil Pak MD - 01/17/2022 FULL RESULT: Examination: CT brain without contrast o n 01/17/2022 4:28 PM Clinical History: Acute myeloblastic judy kemia Indication: Cancer complication or comor bidity Comparison: MRI brain without and with c ontrast 06/28/2021 Technique: CT brain without contrast Findings: There is no sign of mass effec t or midline shift. No large volume intracranial hemorrhage or extra axial fluid collection is present. There is no sign of acute territorial infarction. The ventricular size is stable. The bony structures are intact. IMPRESSION: No acute intracranial abnormality. Alex Farrell MD IMG CT ORDERABLES Parvovirus B19 Quant, Plasma (12/13/2021 10:33 AM CDT) [facility] Method Time Signature Parvo B19 Not Detected Not Detected [facility] Plasma-Viraco IU/mL [facility] Comment: Assay Range: 199 IU/mL to 1.38E+10 IU/mL One IU is equal to 0.73 copies of Parvov irus B19. The limit of quantitation (LOQ) is 199 I U/mL. Parvovirus B19 DNA detected below the LOQ will be reported as Detected:<199 IU/mL. This test was developed and its performa nce characteristics determined by [employer]. It has n ot been cleared or approved by the U.S. Food and Drug Administration . Results should be used in conjunction with clinical findings, and should not form the sole basis for a diagnosis or treatment decis ion. Performed At: [facility] [address] [place] [address] Philanthropy Officer: Buthc Newell Ph.D., B CLD (ABB) CLIA#: [id number] Phone: Specimen Anatomical Collection Method Collection Time Receive d Time (Source) Location / / Volume Laterality Blood 12/13/2021 10:33 12/14/2021 AM CDT 10:12 AM CDT Narrative [facility] - 2 11:45 AM CDT Coordinate w/ photophresis Lyndsay GREGG MICROBIOLOGY - GENERAL ORDER MERLY Performing Organization Address City/[facility]/ZIP [facility] Phon e Number [facility] Unless otherwise noted, [address] all lab tests performed by: Division of Pathology and Laboratory Medicine [address] [place] [address] (ABNORMAL) Hemoglobin A1c (12/13/2021 10:33 AM CDT) athologist Signature A1C 5.8 (H) 4.3 - 5.6 % [facility] Comment: HbA1c values >=6.5% are diagnostic of di abetes mellitus. Diagnosis should be confirmed by repeat testing. Therapeutic Action suggested: >8.0% HbA1 c; Goal of therapy: <7.0% HbA1c Specimen Anatomical Collection Method Collection Time Receive d Time (Source) Location / / Volume Laterality Blood 12/13/2021 10:33 12/13/2021 AM CDT 11:03 AM CDT Narrative [facility] - 2 11:21 AM CDT Coordinate w/ photophresis Lyndsay GREGG LAB BLOOD ORDERABLES Performing Organization Address City/[facility]/ZIP Code Phon e Number [facility] Unless otherwise noted, [address] all lab tests performed by: Division of Pathology and Laboratory Medicine [address] [place] [address] CT Chest/Lung Surveillance Low Dose (10/25/2021 7:54 AM WOOL CARDER) Anatomical Region Laterality Modality Computed Tomography Specimen (Source) Anatomical Collection Method Collection Time Re ceived Time Location / / Volume Laterality 10/26/2021 9:22 AM WOOL CARDER Impressions 10/26/2021 9:33 AM WOOL CARDER Scattered tiny nodules remain stable, presumably benign. There is some scarring in the lingula and left costophrenic sulcus that is stable. No acute cardiopulmonary disease. Narrative 10/26/2021 9:33 AM WOOL CARDER FULL RESULT: Examination: CT CHEST/LUNG SURVEILLANCE LOW DOSE, 10/25/2021 7:54 AM Clinical History: Dyspnea, not otherwise specified. Acute myelogenous is seen again Indication: pulmonary infiltrates, Multi ple incidental pulmonary nodules, Comparison: 06/26/2019 Technique: Spiral CT of the chest is per formed without intravenous contrast using low radiation dose technique. Findings: Central venous catheter tips are at the cavoatrial junction and upper right atrium. Cardiac chamber sizes are normal. Aortic tortuosity. There is no mediastinal adenopathy. Thoracic scoliosis with hardw are in place. A few tiny pulmonary nodul es are seen less than 4 mm. There is some linear scarring or atelectasis in the lingula and minimally in the left costophrenic sulcus as before. Scarring in the l ow right paraspinal region is seen again with extensive paraspinal pleural calcifications and soft tissue thickening. The soft tissue thickening and adjacent consolidation has decreased mildly over the last couple of years. Calcified plaque a long the right hemidiaphragm is seen again. Cholecystectomy clips. The remainder of the visualized upper abdomen is unremarkable. There is a healing right seventh rib fracture and slight deformity at se veral adjacent ribs presumably representing intervening trauma. Orthopedic hardware in the cervical spine is seen again. No destructive bone lesions. Procedure Note Arnoldo Wesley MD - 10/26/2021Formatt ing of this note might be different from the original. FULL RESULT: Examination: CT CHEST/LUNG SURVEILLANCE LOW DOSE, 10/25/2021 7:54 AM Clinical History: Dyspnea, not otherwise specified. Acute myelogenous is seen again Indication: pulmonary infiltrates, Multi ple incidental pulmonary nodules, Comparison: 06/26/2019 Technique: Spiral CT of the chest is per formed without intravenous contrast using low radiation dose technique. Findings: Central venous catheter tips are at the cavoatrial junction and upper right atrium. Cardiac chamber sizes are normal. Aortic tortuosity. There is no mediastinal adenopathy. Thoracic scoliosis with hardware in place. A few tiny pulmonary nodules are seen less than 4 mm. There is some linear scarring or atelectasis in the lingula and minimally in the left costophrenic sulcus as before. Scarring in the low right paraspinal region is seen again with extensive paraspinal pleural calcifications and soft tissue thickening. The soft tissue thickening and adjacent consolidation has decreased mildly over the last couple of years. Calcified plaque along the right hemidiaphragm is seen again. C holecystectomy clips. The remainder of the visualized upper abdomen is unremarkable. There is a healing right seventh rib fracture and slight deformity at several adjacent ribs presumably representing in tervening trauma. Orthopedic hardware in the cervical spine is seen again. No destructive bone lesions. IMPRESSION: Scattered tiny nodules remain stable, pr esumably benign. There is some scarring in the lingula and left costophrenic sulcus that is stable. No acute cardiopulmonary disease. Marlen Little NP IMG CT ORDERABLES BMT ABORh Reverse (10/09/2021 10:17 AM WOOL CARDER) athologist Signature CURRENT ABO O [facility] Specimen Anatomical Collection Method Collection Time Receive d Time (Source) Location / / Volume Laterality Blood 10/09/2021 10:17 10/09/2021 AM WOOL CARDER 11:25 AM WOOL CARDER Deena Núñez NP BLOOD BANK TEST ORDERABLES Performing Organization Address City/State/ZIP Code Phon e Number [facility] Unless otherwise noted, [address] all lab tests performed by: Division of Pathology and Laboratory Medicine [address] [place] [address] BMT ABORh Forward (10/09/2021 10:17 AM WOOL CARDER) athologist Signature Original ABORh O Pos [facility] Current ABORh O POS [facility] Specimen Anatomical Collection Method Collection Time Receive d Time (Source) Location / / Volume Laterality Blood 10/09/2021 10:17 10/09/2021 AM WOOL CARDER 11:25 AM WOOL CARDER Deena Núñez NP BLOOD BANK TEST ORDERABLES Performing Organization Address City/State/ZIP Code Phon e Number [facility] Unless otherwise noted, [address] all lab tests performed by: Division of Pathology and Laboratory Medicine [address] [place] [address] TMP Interpretation ABORh Bone Marrow Transplant (10/09/2021 10:17 AM WOOL CARDER) athologist Signature TMP BMT ABOR . [facility] Comment: TIMOTHY VALADEZ MD - [id number] Dictated by: TIMOTHY VALADEZ MD - [id number] Dictated Date/Time: 10.09.2021 21:33 PM WOOL CARDER Transcribed Date/Time: 10.09.2021 21:33 PM WOOL CARDER Electronically Signed By: TIMOTHY WALLER MD - [id number] on 10.09.2021 21:33 PM Specimen Anatomical Collection Method Collection Time Receive d Time (Source) Location / / Volume Laterality Blood 10/09/2021 10:17 10/09/2021 AM WOOL CARDER 11:25 AM WOOL CARDER Deena Núñez NP BLOOD BANK TEST ORDERABLES Performing Organization Address City/State/ZIP Code Phon e Number [facility] Unless otherwise noted, [place] [address] [place] all lab tests performed by: Division of Pathology and Laboratory Medicine [address] [place] (ABNORMAL) SPIROMETRY W/O DILATORS, DLCO AND BODY PLETHSMOGRAPHIC LUNG VOLUMES (09/24/2021 2:05 PM WOOL CARDER) Analysis Performed At Patho logist Time Signature FVC (L) pre 2.329 (L) 2.834 - 09/24/2021 [place] 4.311 L 2:09 PM WOOL CARDER FEV1 (L) pre 1.710 (L) 2.138 - 09/24/2021 [place] 3.388 L 2:09 PM WOOL CARDER FEV1/FVC (%) 73.440 68.265 - 09/24/2021 [place] pre 87.853 % 2:09 PM WOOL CARDER DLCO_SB 17.221 16.177 - 09/24/2021 [place] ml/(min*mmHg) 36.343 2:09 PM WOOL CARDER ml/(min*mm Hg) DLCOc_SB 17.496 16.177 - 09/24/2021 [place] ml/(min*mmHg) 36.343 2:09 PM WOOL CARDER ml/(min*mm Hg) TLC (L) 4.629 4.311 - 09/24/2021 [place] 6.285 L 2:09 PM WOOL CARDER RV (L) 2.300 1.425 - 09/24/2021 [place] 2.577 L 2:09 PM WOOL CARDER RV/TLC (%) 49.687 (H) 29.770 - 09/24/2021 [place] 48.950 % 2:09 PM WOOL CARDER FVC (% pred) 65 % 09/24/2021 [place] pre 2:09 PM WOOL CARDER FEV1 (%pred) 62 % 09/24/2021 [place] pre 2:09 PM WOOL CARDER FEV1/FVC (% 94 % 09/24/2021 [place] pred) pre 2:09 PM WOOL CARDER TLC (% pred) 87 % 09/24/2021 [place] 2:09 PM WOOL CARDER RV (% pred) 115 % 09/24/2021 [place] 2:09 PM WOOL CARDER RV/TLC (% 126 % 09/24/2021 [place] pred) 2:09 PM WOOL CARDER DLCO_SB (% 66 % 09/24/2021 [place] pred) 2:09 PM WOOL CARDER DLCOc_SB (% 67 % 09/24/2021 [place] pred) 2:09 PM WOOL CARDER Specimen (Source) Anatomical Collection Method Collection Time Re ceived Time Location / / Volume Laterality 09/24/2021 1:19 PM WOOL CARDER Narrative This result has an attachment that is no t available. Johanna Gonsalez [employer] PFT ORDERABLES Performing Organization Address City/State/ZIP Code Phon e Number [facility] after 08/31/2021 Additional Health Concerns Infection Onset Date Last Indicated MDRO Other- non respiratory sourceComment: Citrobacter 01/1701/18/2022 species on preliminary report MDR-Pseudomonas putida-non respiratory source 01/17/2022 01/17/2022 Insurance Payer Benefit Plan / Subscriber ID Effective Dates Phone Addre ss Type Group [employer]ETNA MANAGED AETNA O [id number] 2021-Presernie CHAVEZ X [phone] [facility] [place] [address] Advance Directives Type Date Recorded Patient Straight Cutter Machine Explanati on Advance Directives: 06/18/2019 Directive to Physicians Living Will and Family or Surrogates-Carlito soria Will Advance Directives: 06/18/2019 Medical Solange r of Cargo Worker Medical Power of Cargo Worker Code Status Date Activated Date Inactivated Comments Full Code 01/17/2022 9:31 PM 01/22/2022 3:25 PM Code Status Date Activated Date Inactivated Comments Full Code 06/25/2021 12:06 AM 06/30/2021 3:26 PM Full Code 04/27/2020 6:21 PM 05/03/2020 4:44 PM Full Code 09/15/2019 3:37 AM 09/23/2019 7:38 PM Full Code 08/17/2019 4:35 PM 08/21/2019 3:06 PM Care Teams Baseball Coach Relationship Specialty Start Date End Date Selvin Amanda PCP - External Referring Hematology 12/15/18 Edilma Niño MD [address] [address] Van Avitia MD PCP - General Stem Cell Transplant 07/09/[address] [place] [id number] Kimmy England Registered Nurse Nursing 01/05/19 Casie RN [address] [place] [id number] Janna Research Coordinator Research 01/26/[address] [place] [id number]
--- OUTSIDE RECORDS SUMMARY | 2022-08-31 13:47 | XMS REPORT | Continuity of Care Document ---
:1960 Author Organization [facility] t Address [address] [place] [address] Care Team Providers Name Role Phone Rafael Vega MD Primary Care Physician SYSTEM, PROVIDER NOT IN Attending Clinician Unavailable Van Wolf MD Attending Clinician VAN WOLF Attending Clinician Unavailable Juan Machado APN Attending Clinician [phone] JUAN MACHADO Attending Clinician Unavailable Hanna Morris Attending Clinician FIDELINA LOU Attending Clinician Unavailable Melissa Keys RN Attending Clinician Unavailable Deena Betancourt NP Attending Clinician DEENA BETANCOURT Attending Clinician Unavailable Naldo Mccann Attending Clinician Elizabeth Bermudez, Allyson Watters Attending Clinician [phone] NALDO BLEVINS Attending Clinician Unavailable Adriano Millan MD Attending Clinician ADRIANO MILLAN Attending Clinician Unavailable Rosanne Castro RN Attending Clinician Unavailable IBRAHIMA IBARRA Attending Clinician Unavailable Ibrahima Ibarra APN Attending Clinician Radhames Fountain Attending Clinician Gloriabistephen [facility], Latoya Goldberg. Attending Clinician Sandor GREGG, Lyndsay Attending Clinician Billie JAIME, Tima Attending Clinician Bryanna Navarrete RN Attending Clinician Cal GREGG, Romeo Nugent Attending Clinician [phone] MARY PICKERING Attending Clinician Unavailable Bettie JAIME, Canelo Attending Clinician Wallace BLURB WRITER, Johanna Attending Clinician Ester JAIME, Angie Attending Clinician Brijesh GREGG, Marely Attending Clinician Frank RT, Leatha C Attending Clinician Unavailable Sidney MARINO, Marlen Attending Clinician Rodri GREGG, Marti Attending Clinician Donald AJIME, Moe Attending Clinician Patric Armas MD Attending Clinician Shad Chambers MD Attending Clinician Rosanne Mathias APN Attending Clinician ROSANNE MAHTIAS Attending Clinician Unavailable Mary Quiroga LVN Attending Clinician Unavailable Cristofer Lopez RN Attending Clinician Unavailable Henrry Euceda RN Attending Clinician Unavailable Lesley Hernandez Attending Clinician Jose G Cowan RN Attending Clinician Unavailable Jackelyn Belle RN Attending Clinician Unavailable Bryanna Weiss RN Attending Clinician Unavailable Jacobo MARINO, Cynthia Diehl Attending Clinician Sierra Barnett RN Attending Clinician Unavailable Patric Thomas MD Attending Clinician Quyen Portillo MA Attending Clinician Unavailable Skye Yuen RN Attending Clinician Unavailable Santos BARRIOS, Antonette Attending Clinician Unavailable Mckenna RN, Consuelo Patel Attending Clinician Unavailable Bharath RN, Aysha Jimenez Attending Clinician Feliz RN, Randal Campa Attending Clinician Abdias RN, Moe Maier Attending Clinician Chucky BARRIOS, Andrew Hercules Attending Clinician Unavailable ARAMIS DONALDSON Attending Clinician Unavailable Macario JAIME, Aramis Mitchell Attending Clinician Sonali NAVAS, Chris Attending Clinician Sree Tee MD, Jordi Attending Clinician Doctor Unassigned, [place] Attending Clinician Unavailable Only, Adc Test Attending Clinician Unavailable Pob, Adc Lab Main Attending Clinician Unavailable Marky BARRIOS, Radha Gutierrez Attending Clinician Unavailable Silvia JAIME, Ludwig Attending Clinician Tyrel BARRIOS, Hanna Lubin Attending Clinician Neto PA, Jaleel Attending Clinician Unavailable Tracy BARRIOS, Melissa Patiño Attending Clinician William BARRIOS, Milvia Goldberg Attending Clinician [phone] Hardeep BARRIOS, Velma Watters Attending Clinician Unavailable Carlos JAIME, Adriano Attending Clinician Kimmy Sheth Attending Clinician Carlene Rothman Attending Clinician Adlen BLURB WRITER, Ibrahima Mitchell Attending Clinician Severo JAIME, James Attending Clinician Oli JAIME, Meenakshi Attending Clinician Unavailable Elijah MARINO, Quyen Attending Clinician Fatemeh JAIME, Shanon Attending Clinician Agustín JAIME, Antonia Attending Clinician Jean-Paul Ramos CRNA Attending Clinician HeckGarry Davis Attending Clinician JORDI YORK Attending Clinician Unavailable ANGIE GARCIA Attending Clinician Unavailable ROMEO MCCALL Attending Clinician Unavailable MARTI PITTS Attending Clinician Unavailable DIONY PEREZ M.D. Attending Clinician Unavailable VAN WOLF Admitting Clinician Unavailable ARAMIS DONALDSON Admitting Clinician Unavailable Aramis Donaldson MD Admitting Clinician Payers Payer Name Policy Type Policy Number Effective Date Expiration Date S ourlydia AETNA CHOICE POS II [id number] 2001 00:00:00 CIGNA HMO POS OPEN [id number] 2002 ACCESS 00:00:00 CIGNA PPO [id number] 2014 00:00:00 AETNA COMMERCIAL [id number] 2021 OUT OF NETWORK 00:00:00 [employer]IGNA LIFESOURCE [id number] 2019 SCT 00:00:00 Problems Condition Condition Condition Status Onset Resolution Last Treating Co mments Source Name Details Category Date Date Treatment Clinician Date Class 2 Class 2 Disease Active [place] severe severe 06-20 Health obesity obesity 00:00: due to due to 00 excess excess calories calories with with serious serious comorbidit comorbidit y and body y and body mass index mass index (BMI) of (BMI) of 37.0 to 37.0 to 37.9 in 37.9 in adult adult Right hip Right hip Disease Active [facility] pain pain 06-19 Health 00:00: 00 Pain due Pain due Disease Active [facility] to right to right 06-19 Health hip joint hip joint 00:00: prosthesis prosthesis 00 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 Patient reports unchanged dyspnea reports she is quite sedentary at home. Recommend that she initiate a home exercise regimen as she is unable to participa te in pulmonary rehab. Recommend she continue to use Advair and Spiriva inhaled therapies . Her FEV1 and total lung capacity are improved on PFTs. Recommend follow-up in 6 months with PFTs. Hoarseness Hoarseness Disease Active U nivers 9-07 ity of 00:00: [facility] Gram-negat Gram-negat Disease Active U nivers melva sepsis melva sepsis 4-30 it y of 00:: [facility] Central Central Disease Active Univers line line 4-30 [place] bloodstrea bloodstrea 00 MD ministerio Kramer infection infection [facility] Supraventr Supraventr Disease Active 2020-09 Last U nivers icular icular 0-26 Assessmen ity of tachycardi tachycardi 00:00: t & Plan: [place] a a 00 Formattin MD g of this Anderso note n might be Cancer different Center from the original. Patient has a history of supravent ricular tachycard ia for which she wore a 30-day event monitor in May that Dr. Tima Wise reviewed showing no significa nt arrhythmi as during that time she had it on. Continue metoprolo l XL 100 mg daily Nausea Nausea Disease Active Overview: Univer s 04-27 Formattin ity of 00:00: g of this note might be Anderso different n from the Cancer original. Center Added automatic ally from request for surgery [id number] Loose Loose Disease Active Overview: Univer s stool stool 04-27 Formattin ity of 00:00: g of this note might be Anderso different n from the Cancer original. Center Added automatic ally from request for surgery [id number] Graft-vers Graft-vers Disease Active Overview : Univers us-host us-host 04-27 Formattin ity o f disease disease 00:00: g of this note might be Anderso different n from the Cancer original. Center Added automatic ally from request for surgery [id number] Hypokalemi Hypokalemi Disease Active 2020-0 U nivers a a 1-23 ity of 00:00: [place] 00 MD Nia jimenez [facility] Hypomagnes Hypomagnes Disease Active 2020-0 U mook emia emia -23 ity of 00:00: 00 MD Nia jimenez [facility] Abdominal Abdominal Disease Active 2018-09 Overview: Univers pain pain 2-24 Formattin ity of 00:00: g of this 00 note might be Nia edwards n from the Cancer original. Center Added automatic ally from request for surgery [id number] Physical Physical Disease Active 2018-09 Unive rs deconditio deconditio 2-20 it y of rtuh ruth 00:00: [place] 00 MD Nia jimenez [facility] Difficulty Difficulty Disease Active 2018-09 U nivers in walking in walking 2-20 it y of 00:00: 00 MD Nia jimenez [facility] Impairment Impairment Disease Active 2018-09 U nivhau of balance of balance 2-20 it y of 00:00: 00 MD Nia jimenez [facility] Generalize Generalize Disease Active 2018-09 U mook d muscle d muscle 1-27 ity of weakness weakness 00:00: [place] 00 MD Nia jimenez [facility] Patient Patient Disease Active 2018-09 Univers immunocomp immunocomp 1-13 it y of romised romised 00:00: [place] 00 MD Nia jimenez [facility] Cytomegalo Cytomegalo Disease Active 2018-09 U mook virus virus 1-05 ity of serostatus serostatus [place] positive positive 00 [place] Nia jimenez [facility] Pain due Pain due Disease Active 2018-09 Unive rs to to 0-28 ity of neoplastic neoplastic [place] disease disease 00 [place] Nia jimenez [facility] 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 00 MD Nia jimenez [facility] 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 00:00: [place] 00 MD Nia jimenez [facility] Encounter Encounter Disease Active Uni vers for for 9-25 ity of antineopla antineopla [place] stic stic 00 chemothera chemothera An derso py py n [facility] Rash Rash Disease Active 2019 Univers 5-01 ity of 00:00: [place] 00 MD Nia jimenez [facility] Febrile Febrile Disease Active Univers neutrophil neutrophil 4- it y of ic ic 00:00: [place] dermatosis dermatosis 00 (Vane) (Vaen) Nia jimenez [facility] Pain in Pain in Disease Active Univers right knee right knee 01-14 it y of 00:00: [place] 00 MD Nia jimenez [facility] Cellulitis Cellulitis Disease Active U nivers of right of right 01-14 ity of lower limb [place] limb [place] [facility] [facility]enez [facility] Weakness Weakness Disease Active Unive rs 01-14 ity of 00:00: [place] 00 MD Nia jimenez [facility] Other Other Disease Active Univers disorders disorders 4- ity of of of 00:00: [place] electrolyt electrolyt 00 fluid fluid n balance, balance, Cancer not not Center elsewhere elsewhere classified classified High grade High grade Disease Recurre Univers myelodyspl myelodyspl nce 12-22 it y of astic astic 00:00: [place] syndrome syndrome 00 lesions [facility] Tumor Tumor Disease Active Univers lysis lysis 3- ity of syndrome syndrome 00:00: [place] 00 MD Nia jimenez [facility] Anemia in Anemia in Disease Active Uni vers neoplastic neoplastic 3-29 it y of disease disease 00:00: [place] 00 MD Nia jimenez [facility] 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 [place] openia openia 00 MD Kramer [facility] Bipolar Bipolar Disease Active Univers disorder disorder 3-29 ity of 00:00: [place] 00 MD Nia jimenez [facility] 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 00 not having not having An derso achieved achieved n remission remission [facility] Acute Acute Disease Active Methodi post-hemor post-hemor 7-24 st rhagic rhagic 00:00: Hospita anemia anemia 00 l S/P lumbar S/P lumbar Disease Active M ethodi spinal spinal 7-24 st fusion fusion 00:00: Hospita 00 l Electrolyt Electrolyt Disease Active M ethodi e and e and 7-24 st fluid fluid 00:00: Hospita disorder disorder 00 l Acute Acute Disease Active Methodi respirator respirator 7-16 st y distress y distress 00:00: Ho spita 00 l Post-opera Post-opera Disease Active M ethodi tive pain tive pain 7-14 st 00:00: Hospita 00 l Post-opera Post-opera Disease Active M ethodi tive tive 7-14 st nausea and nausea and 00:00: Ho spita vomiting vomiting 00 l Chronic Chronic Disease Active Methodi pain pain 7-14 st 00:00: Hospita 00 l Obesity, Obesity, Disease Active Metho di Class III, Class III, 7-14 st BMI BMI 00:00: Hospita 40-49.9 40-49.9 00 l (morbid (morbid obesity) obesity) Acute Acute Disease Active Methodi blood loss blood loss 7-14 st anemia anemia 00:00: Hospita 00 l BACK BACK Diagnosis Active 2018-07-10 Mem oria Active 04-03 14:44:00 l 04/03/2018 08:00: Asif jimenez [facility] 00 [facility] [place] Other Other Disease Active Methodi secondary secondary 7-10 st scoliosis scoliosis 00:00: Hosp andrea 00 l Scoliosis Scoliosis Disease Active Met hodi due to due to 23 st degenerati degenerati 00:00: Ho spita ve disease ve disease 00 l of spine of spine in adult in adult patient patient BACK / BACK / Diagnosis Active 2018-06-05 Me moria AQUA AQUA 09-22 13:05:00 l Active 08:00: [place] 09/22/2017 00 [facility] ARTHROPATH Diagnosis Active 2017-07-28 Memoria Y OF ARTHROPATH 06-18 16:08:00 l LUMBAR Y OF 00:00: [place] FACET LUMBAR 00 JOINTS FACET JOINTS Active 06/18/2017 [facility] ARTHROPATH ARTHROPAT Diagnosis Active 2017-06-06 Memoria Y OF HY OF 05-02 09:23:00 l LUMBAR LUMBAR 00:00: [place] FACET FACET 00 JOINT JOINT Active 05/02/2017 [facility] [place] S/P total S/P total Disease Active Uni vers hip hip 03-10 ity of arthroplas arthroplas [place] ty ty 00 [facility] Low back Low back Problem 2019-02-23 Memoria pain pain 11:36:29 l 02/23/2019 Asif jimenez [facility] Other Other Problem 2019-02-23 Hira lai abnormalit abnormalit 11:36:29 l ies of ies of [place] gait and gait and mobility mobility 02/23/2019 [facility] Bipolar I Bipolar I Problem Resolve 2019-02-23 Memoria disorder disorder d 11:36:29 l (disorder) (disorder) He rmann Resolved Problem 02/23/2019 [facility] Arthritis Arthritis Problem Resolve 2019-02-23 Memoria (disorder) (disorder) d 11:36:29 l Resolved [place] Problem 02/23/2019 [facility] Depressive Depressiv Problem Resolve 2019-02-23 Memoria disorder e disorder d 11:36:29 l (disorder) (disorder) He rmann Resolved Problem 02/23/2019 [facility] Sleep Sleep Problem Resolve 2019-02-23 Hira lai apnea apnea d 11:36:29 l (finding) (finding) Herm lin Resolved Problem 02/23/2019 [facility] Diabetes Diabetes Problem Active 2019-02-23 Memoria mellitus mellitus 11:36:29 l (disorder) (disorder) He rmann Active Problem 02/23/2019 [facility] Gastroesop Gastroeso Problem Active 2019-02-23 Memoria hageal phageal 11:36:29 l reflux reflux [place] disease disease (disorder) (disorder) Active Problem 02/23/2019 [facility] Hyperchole Hyperchol Problem Active 2019-02-23 Memoria sterolemia esterolemi 11:36:29 l (disorder) duong jimenez (disorder) Active Problem 02/23/2019 [facility] Asthma Asthma Problem Active 2019-02-23 Hiar lai (disorder) (disorder) 11:36:29 l Active [place] Problem 02/23/2019 [facility] Hypertensi Hypertens Problem Active 2019-02-23 Memoria ve melva 11:36:29 l disorder, disorder, Herm lin systemic systemic arterial arterial (disorder) (disorder) Active Problem 02/23/2019 [facility] Migraine Migraine Problem Active 2019-02-23 Memoria (disorder) (disorder) 11:36:29 l Active [place] Problem 02/23/2019 [facility] Urinary Urinary Problem Active 2019-02-23 M emoria incontinen incontinen 11:36:29 l ce ce [place] (finding) (finding) Active Problem 02/23/2019 [facility] Z96.641 - [id number] Diagnosis Active 2022-06-21 Memoria PRESENCE - PRESENCE 15:39:00 l OF RIGHT OF RIGHT Asif n ARTIFICIAL ARTIFICIAL H H Active [facility] Painful Painful Disease Active [facility] mouth mouth [facility] [place] [facility] Pain in Pain in Disease Active [facility] right arm right arm [facility] [place] [facility] Inguinal Inguinal Disease Active Unive rs pain pain [facility] [place] [facility] Headache Headache Disease Active Unive rs [facility] [place] [facility] Nausea and Nausea and Disease Active U nivers vomiting vomiting [facility] [place] [facility] History of Past Illness Condition Condition Condition Status Onset Resolution Last Treating Co mments Source Name Details Category Date Date Treatment Clinician Date Scoliosis, Problem 2017-2019-02-23 2019-02-23 Memoria unspecifie Scoliosis, 10-11 11:36:29 11:36:29 l d unspecifie 06:20: Asif n d 00 08/11/2018 02/23/2019 [facility] Allergies, Adverse Reactions, Alerts Allergy Allergy Status Severity Reaction(s) Onset Inactive Treating Comm ents Source Name Type Date Date Clinician Penicill Propensi Active Rash Univer s ins ty to 10-17 ity of adverse 00:00: [place] reaction 00 [facility] Penicill Propensi Active Rash 2022-0 Univer s ins ty to 1-26 ity of adverse 00:00: [place] reaction 00 [facility] s [facility] PENICILL Drug Active Rash 2022-0 Univers INS Class 1-26 ity of 00:00: [place] 00 [facility] Penicill Propensi Active Rash 2019-0 Univer s ins ty to 3-28 ity of adverse 00:00: [place] reaction 00 MD stephen Kramer n [facility] [place] PENICILL Drug Active Low Rash 2019-0 MD INS Class 3-28 Anderso 00:00: n 00 PENICILL Drug Active Low Rash 2019-0 MD INS Class 3-28 Anderso 00:00: n 00 PENICILL Drug Active Low Rash 2019-0 MD INS Class 3-28 Anderso 00:00: n 00 PENICILL Drug Active Low Rash 2019-0 MD INS Class 3-28 Anderso 00:00: n 00 PENICILL Drug Active Low Rash 2019-0 MD INS Class 3-28 Anderso 00:00: n 00 PENICILL Drug Active Low Rash 2019-0 MD INS Class 3-28 Anderso 00:00: n 00 PENICILL Drug Active Low Rash 2019-0 MD INS Class 3-28 Anderso 00:00: n 00 PENICILL Drug Active Low Rash 2019-0 MD INS Class 3-28 Anderso 00:00: n 00 PENICILL Drug Active Low Rash 2019-0 MD INS Class 3-28 Anderso 00:00: n 00 PENICILL Drug Active Low Rash 2019-0 MD INS Class 3-28 Anderso 00:00: n 00 PENICILL Drug Active Low Rash 2019-0 MD INS Class 3-28 Anderso 00:00: n 00 PENICILL Drug Active Low Rash 2019-0 MD INS Class 3-28 Anderso 00:00: n 00 PENICILL Drug Active Low Rash 2019-0 MD INS Class 3-28 Anderso 00:00: n 00 PENICILL Drug Active Low Rash 2019-0 MD INS Class 3-28 Anderso 00:00: n 00 PENICILL Drug Active Low Rash 2019-0 MD INS Class 3-28 Anderso 00:00: n 00 PENICILL Drug Active Low Rash 2019-0 MD INS Class 3-28 Anderso 00:00: n 00 PENICILL Drug Active Low Rash 2019-0 MD INS Class 3-28 Anderso 00:00: n 00 PENICILL Drug Active Low Rash 2019-0 MD INS Class 3-28 Anderso 00:00: n 00 PENICILL Drug Active Low Rash 2019-0 MD INS Class 3-28 Anderso 00:00: n 00 PENICILL Drug Active Low Rash 2019-0 MD INS Class 3-28 Anderso 00:00: n 00 PENICILL Drug Active Low Rash 2019-0 MD INS Class 3-28 Anderso 00:00: n 00 PENICILL Drug Active Low Rash 2019-0 MD INS Class 3-28 Anderso 00:00: n 00 PENICILL Drug Active Low Rash 2019-0 MD INS Class 3-28 Anderso 00:00: n 00 PENICILL Drug Active Low Rash 2019-0 MD INS Class 3-28 Anderso 00:00: n 00 PENICILL Drug Active Low Rash 2019-0 MD INS Class 3-28 Anderso 00:00: n 00 PENICILL Drug Active Low Rash 2019-0 MD INS Class 3-28 Anderso 00:00: n 00 PENICILL Drug Active Low Rash 2019-0 MD INS Class 3-28 Anderso 00:00: n 00 PENICILL Drug Active Low Rash 2019-0 MD INS Class 3-28 Anderso 00:00: n 00 PENICILL Drug Active Low Rash 2019-0 MD INS Class 3-28 Anderso 00:00: n 00 PENICILL Drug Active Low Rash 2019-0 MD INS Class 3-28 Anderso 00:00: n 00 PENICILL Drug Active Low Rash 2019-0 MD INS Class 3-28 Anderso 00:00: n 00 PENICILL Drug Active Low Rash 2019-0 MD INS Class 3-28 Anderso 00:00: n 00 PENICILL Drug Active Low Rash 2019-0 MD INS Class 3-28 Anderso 00:00: n 00 PENICILL Drug Active Low Rash 2019-0 MD INS Class 3-28 Anderso 00:00: n 00 PENICILL Drug Active Low Rash 2019-0 MD INS Class 3-28 Anderso 00:00: n 00 PENICILL Drug Active Low Rash 2019-0 MD INS Class 3-28 Anderso 00:00: n 00 PENICILL Drug Active Low Rash 2019-0 MD INS Class 3-28 Anderso 00:00: n 00 PENICILL Drug Active Low Rash 2019-0 MD INS Class 3-28 Anderso 00:00: n 00 PENICILL Drug Active Low Rash 2019-0 MD INS Class 3-28 Anderso 00:00: n 00 PENICILL Drug Active Low Rash 2019-0 MD INS Class 3-28 Anderso 00:00: n 00 PENICILL Drug Active Low Rash 2019-0 MD INS Class 3-28 Anderso 00:00: n 00 PENICILL Drug Active Low Rash 2019-0 MD INS Class 3-28 Anderso 00:00: n 00 PENICILL Drug Active Low Rash 2019-0 MD INS Class 3-28 Anderso 00:00: n 00 PENICILL Drug Active Low Rash 2019-0 MD INS Class 3-28 Anderso 00:00: n 00 PENICILL Drug Active Low Rash 2019-0 MD INS Class 3-28 Anderso 00:00: n 00 PENICILL Drug Active Low Rash 2019-0 MD INS Class 3-28 Anderso 00:00: n 00 PENICILL Drug Active Low Rash 2019-0 MD INS Class 3-28 Anderso 00:00: n 00 PENICILL Drug Active Low Rash 2019-0 MD INS Class 3-28 Anderso 00:00: n 00 PENICILL Drug Active Low Rash 2019-0 MD INS Class 3-28 Anderso 00:00: n 00 PENICILL Drug Active Low Rash 2019-0 MD INS Class 3-28 Anderso 00:00: n 00 PENICILL Drug Active Low Rash 2019-0 MD INS Class 3-28 Anderso 00:00: n 00 PENICILL Drug Active Low Rash 2019-0 MD INS Class 3-28 Anderso 00:00: n 00 PENICILL Drug Active Low Rash 2019-0 MD INS Class 3-28 Anderso 00:00: n 00 PENICILL Drug Active Low Rash 2019-0 MD INS Class 3-28 Anderso 00:00: n 00 PENICILL Drug Active Low Rash 2019-0 MD INS Class 3-28 Anderso 00:00: n 00 PENICILL Drug Active Low Rash 2019-0 MD INS Class 3-28 Anderso 00:00: n 00 PENICILL Drug Active Low Rash 2019-0 MD INS Class 3-28 Anderso 00:00: n 00 PENICILL Drug Active Low Rash 2019-0 MD INS Class 3-28 Anderso 00:00: n 00 PENICILL Drug Active Low Rash 2019-0 MD INS Class 3-28 Anderso 00:00: n 00 PENICILL Drug Active Low Rash 2019-0 MD INS Class 3-28 Anderso 00:00: n 00 PENICILL Drug Active Low Rash 2019-0 MD INS Class 3-28 Anderso 00:00: n 00 PENICILL Drug Active Low Rash 2019-0 MD INS Class 3-28 Anderso 00:00: n 00 PENICILL Drug Active Low Rash 2019-0 MD INS Class 3-28 Anderso 00:00: n 00 PENICILL Drug Active Low Rash 2019-0 MD INS Class 3-28 Anderso 00:00: n 00 PENICILL Drug Active Low Rash 2019-0 MD INS Class 3-28 Anderso 00:00: n 00 PENICILL Drug Active Low Rash 2019-0 MD INS Class 3-28 Anderso 00:00: n 00 PENICILL Drug Active Low Rash 2019-0 MD INS Class 3-28 Anderso 00:00: n 00 PENICILL Drug Active Low Rash 2019-0 MD INS Class 3-28 Anderso 00:00: n 00 PENICILL Drug Active Low Rash 2019-0 MD INS Class 3-28 Anderso 00:00: n 00 PENICILL Drug Active Low Rash 2019-0 MD INS Class 3-28 Anderso 00:00: n 00 PENICILL Drug Active Low Rash 2019-0 MD INS Class 3-28 Anderso 00:00: n 00 PENICILL Drug Active Low Rash 2019-0 MD INS Class 3-28 Anderso 00:00: n 00 PENICILL Drug Active Low Rash 2019-0 MD INS Class 3-28 Anderso 00:00: n 00 PENIC[place] Drug Active Low Rash 2019-0 MD INS Class 3-28 Anderso 00:00: n 00 PENIC[place] Drug Active Low Rash 2019-0 MD INS Class 3-28 Anderso 00:00: n 00 PENIC[place] Drug Active Low Rash 2019-0 MD INS Class 3-28 Anderso 00:00: n 00 P[place]IC[place] Drug Active Low Rash 2019-0 MD INS Class 3-28 Anderso 00:00: n 00 PENIC[place] Drug Active Low Rash 2019-0 MD INS Class 3-28 Anderso 00:00: n 00 PENIC[place] Drug Active Low Rash 2019-0 MD INS Class 3-28 Anderso 00:00: n 00 PENICILL Drug Active Low Rash 2019-0 MD INS Class 3-28 Anderso 00:00: n 00 PENICILL Drug Active Low Rash 2019-0 MD INS Class 3-28 Anderso 00:00: n 00 PENICILL Drug Active Low Rash 2019-0 MD INS Class 3-28 Anderso 00:00: n 00 PENICILL Drug Active Low Rash 2019-0 MD INS Class 3-28 Anderso 00:00: n 00 PENICILL Drug Active Low Rash 2019-0 MD INS Class 3-28 Anderso 00:00: n 00 PENICILL Drug Active Low Rash 2019-0 MD INS Class 3-28 Anderso 00:00: n 00 PENICILL Drug Active Low Rash 2019-0 MD INS Class 3-28 Anderso 00:00: n 00 PENICILL Drug Active Low Rash 2019-0 MD INS Class 3-28 Anderso 00:00: n 00 PENICILL Drug Active Low Rash 2019-0 MD INS Class 3-28 Anderso 00:00: n 00 PENICILL Drug Active Low Rash 2019-0 MD INS Class 3-28 Anderso 00:00: n 00 PENICILL Drug Active Low Rash 2019-0 MD INS Class 3-28 Anderso 00:00: n 00 PENICILL Drug Active Low Rash 2019-0 MD INS Class 3-28 Anderso 00:00: n 00 PENICILL Drug Active Low Rash 2019-0 MD INS Class 3-28 Anderso 00:00: n 00 PENICILL Drug Active Low Rash 2019-0 MD INS Class 3-28 Anderso 00:00: n 00 PENICILL Drug Active Low Rash 2019-0 MD INS Class 3-28 Anderso 00:00: n 00 PENICILL Drug Active Low Rash 2019-0 MD INS Class 3-28 Anderso 00:00: n 00 PENICILL Drug Active Low Rash 2019-0 MD INS Class 3-28 Anderso 00:00: n 00 PENICILL Drug Active Low Rash 2019-0 MD INS Class 3-28 Anderso 00:00: n 00 Penicill Propensi Active Rash 2017-0 Method i ins ty to [address] adverse 00:00: Hospita reaction 00 l s to drug Penicill Propensi Active Rash Univer s ins ty to 6-18 ity of adverse 00:00: [place] reaction 00 Medical s to Branch drug PENICILL Drug Active Med Hives Univers INS Class 6-18 ity of 00:00: [place] 00 Medical Branch Penicill Allergy Active Rash 2014-0 [place] ins to 6-18 Health substan 00:00: e 00 penicill penicill Active Memori a ins<sup> ins<sup> l 1</sup> 1</sup> [place] Family History Family Member Diagnosis Comments Start Date Stop Date Source Paternal Cancer [facility] Natural daughter Acute myelogenous U niversity of leukemia [place] MD Carlos Manuel Jarvis [facility] Natural daughter Myelodysplastic Uni versity of syndrome [place] MD [facility] Natural father -Other cancer Univers ity [facility] MD [facility] Natural father Bladder Cancer Univer [facility] MD Carlos Manuel [facility] [place] Half-brother University o f [place] MD Carlos Manuel [facility] Maternal aunt [facility] MD Carlos Manuel [facility] [place] [facility] [place] [facility] [place] Natural mother [facility] MD Carlos Manuel [facility] [place] Other [facility] MD Carlos Manuel [facility] [place] Paternal aunt Breast cancer Universi ty [facility] MD Carlos Manuel [facility] [place] P[facility] [place] Paternal University of grandmother [place] MD Carlos Manuel [facility] [place] Paternal uncle [facility] MD Carlos Manuel Cance [facility] [place] Social History Social Habit Start Date Stop Date Quantity Comments Source Exposure to 2022-08-17 2022-08-27 Not sure [facility]-CoV-2 (event) 00:00:00 12:21:00 [facility] Alcohol Comment 2022-06-19 2022-06-19 I quit drinking [place] H ealt 00:00:00 00:00:00 20 years ago Tobacco use and 2020-04-27 2020-04-27 Smokeless Universit y of exposure 00:00:00 00:00:00 tobacco non-user [facility] Alcohol intake 2018-04-06 2018-04-06 Current Scientologist 00:00:00 00:00:00 non-drinker of Hospital alcohol (finding) Cigarettes smoked 2018-03-16 2018-03-[address] current (pack per 00:00:00 00:00:00 Hospita l day) - Reported Cigarette 2018-03-16 2018-03-16 Scientologist pack-years 00:00:00 00:00:00 Hospital Tobacco Comment 2018-01-31 2018-01-31 QUITE 5 YEARS Method ist 00:00:00 00:00:00 Hospital Social History 2017-04-18 2017-04-18 [facility] barrera 14:06:42 14:06:42 History of tobacco 1975-09-22 2001-09-22 Cigarette Smoker [facility] use 00:00:00 00:00:00 Sex [birth year] At [birth year] Scientologist 00:00:00 00:00:00 Hospital Smoking Status Start Date Stop Date Source Unknown if ever smoked [facility] Ex-smoker 2022-06-19 00:00:00 2022-06-19 00:00:00 [place] [facility] Medications Ordered Filled Start Stop Current Ordering Indication Dosage Frequency Signature Comments Components Source Medication Medication Date Date Medication? Clinician (SIG) Name Name cholecalcif 2021-09 Yes 400U Take 400 Un sarah elisa, 2-06 Units by ity of vitamin D3, 13:31: mouth [place] (VITAMIN 03 daily. D3) 5,000 Anderso units tab n tablet Cancer [place] polyethylen 2021-09 Yes 17g Take 17 g U nivers e glycol 2-06 by mouth ity of (GLYCOLAX) 13:31: twice [place] 17 03 daily. gram/dose Anderso powder [facility] esomeprazol 2021-09 Yes 20mg Take 20 mg Univers e (NexIUM) 2-06 by mouth. ity of 20 MG 13:31: [place] capsule 03 MD Nia jimenez [facility] cyclobenzap 2021-09 Yes Status post 10mg Take 1 Univers rine 2-06 stem cell tablet (10 ity of (FLEXERIL) 00:00: transplant mg) by [place] 10 mg 00 mouth 3 tablet (three) Surindero times a n day as Cancer needed for Center muscle spasms. magnesium 2021-09- No 400mg Take 1 Univ ers oxide 1-17 11-17 tablet ity of (MAOX) 400 13:39: 00:00 (400 mg) [place] mg tablet 03 :00 by mouth daily. Andpaul n [facility] meloxicam 2021-09 Yes 7.5mg Take 1 Unive rs (MOBIC) 7.5 1-12 tablet ity of mg tablet 00:00: (7.5 mg) [place] 00 by mouth daily as [place] needed. n Cancer [place] calcium 2021-09- No 1{tbl} Take 1 Unive rs carbonate-v 0-25 10-25 tablet by it y of itamin D3 13:12: 00:00 mouth [place] 500 mg - 03 :00 daily. 200 units [place]o (1,250 mg n calcium Cancer carbonate) Center tablet ezetimibe 2021-09 Yes TAKE ONE Univ ers (ZETIA) 10 0-18 (1) ity of mg tablet 00:00: TABLET(S) [place] 00 BY MOUTH MD ONCE A Anderso DAY. n Cancer Center ursodiol 2021-09 Yes Graft-versu 300mg Take 1 Univers (ACTIGALL) 0-14 s-host capsule ity of 300 mg 00:00: disease, (300 mg) [place] capsule 00 not by mouth 3 MD otherwise (three) Anderso specified times a n day. Cancer [place] ruxolitinib 2021-09- No graft-versu 10mg Take 1 Univers (Jakafi) 10 0-04 11-17 s-host tablet (10 ity of mg tablet 00:00: 00:00 disease mg) by [place] 00 :00 mouth MD twice Anderso daily. n [facility] Metoprolol Yes Take by [place] Succinate 9-28 mouth. Health 100 MG 10:42: capsule 27 extended-re lease 24 hour sprinkle polyethylen Yes 17g QD Take 17 g U T e glycol 06-19 by mouth 1 Healt h (Glycolax) 10:42: (one) time 17 GM/SCOOP 27 each day. powder simvastatin Yes 10mg QD Take 10 mg UT (Zocor) 20 06-19 by mouth 1 Hea lth MG tablet 10:42: (one) time 27 each day. cholecalcif Yes 400U Take 400 UT elisa (D3-5) 06-19 Units by Heal th 5,000 Units 10:42: mouth. tablet 26 esomeprazol Yes 20mg Take 20 mg UT e (NexIUM) - by mouth. Heal th [address] 10:42: capsule 26 fluconazole Yes fluconazol UT (Diflucan) -28 e 150 mg Healt h 150 MG 10:42: tablet TK tablet 26 1 T PO 1 TIME Q 3 DAYS Letermovir Yes 480mg Take 480 UT 480 MG - mg by Health tablet 10:42: mouth. 26 diclofenac Yes APPLY FOUR U nivers sodium 9-28 (4) ity of (Voltaren) 00:00: GRAM(S) [place] 1 % gel 00 AFFECTED MD AREA THREE Anderso TIMES n DAILY Cancer NEEDED. DO Center NOT EXCEED 16 GRAMS DAILY. Diclofenac 2021- Yes [id number] Q.[id number] Apply [place] Sodium 06-19 [id number] topically H ealth (Voltaren) 00:00: 04:59 3D 3 (three) 1 % 00 :00 times a external day if gel needed (pain). APPLY 4 GRAMS TO AFFECTED AREA DO NOT EXCEED 16 GRAMS QD methylPREDN 2021- No [id number] 4mg Take 1 UT ISolone 06-19 tablet (4 Health (Medrol 00:00: 04:59 mg total) Dospak) 4 00 :00 by mouth 1 MG tablets (one) time for 1 dose. Use as directed by package instructio ns FLUoxetine Yes 40mg QD Take 40 mg U T (PROzac) 40 05-31 by mouth 1 He alth MG capsule 00:00: (one) time 00 each day. topiramate Yes 200mg Take 200 UT (Topamax) 05-31 mg by Health 200 MG 00:00: mouth tablet 00 every night. FLUoxetine Yes 40mg Take 40 mg U nivers (PROzac) 40 05-31 by mouth ity of mg capsule 00:00: daily. [place] 00 MD Nia jimenez [facility] Center calcium Yes 1{tbl} Take 1 Univer s carbonate-v 05-30 tablet by ity of itamin D3 15:26: mouth [place] 500 mg - 33 daily. 200 units Anderso (1,250 mg n calcium Cancer carbonate) Center tablet magnesium Yes Take by Unive rs oxide 05-30 mouth. ity of (MAOX) 400 15:26: [place] mg tablet 33 MD Nia jimenez Cancer Center cholecalcif Yes 400U Take 400 Un sarah elisa, 05-28 Units by ity of vitamin D3, 16:08: mouth [place] (VITAMIN 01 daily. D3) 5,000 Anderso units tab n tablet Cancer Center tacrolimus Yes Graft-versu Take 2 Univers (PROGRAF) 05-28 s-host capsules ity of 0.5 mg 00:00: disease, (1.0 mg) [place] capsule 00 not by mouth otherwise twice Anderso specified daily [facility] tacrolimus Yes Graft-versu Take 2 Univers (PROGRAF) 05-28 s-host capsules ity of 0.5 mg 00:00: disease, (1.0 mg) [place] capsule 00 not by mouth otherwise twice [place] specified daily [facility] esomeprazol 2021- No 20mg Take 20 mg Univers e (NexIUM) 05-23 by mouth ity of 20 MG 21:16: 00:00 daily. [place] capsule 55 :00 MD Kramer [facility] esomeprazol 2021- No 20mg Take 20 mg Univers e (NexIUM) 05-23 by mouth ity of 20 MG 21:16: 00:00 daily. [place] capsule 55 :00 MD Kramer [facility] HYDROmorpho Yes 2mg Q.5D Take 2 mg U T ne 8-30 by mouth Health (Dilaudid) 00:00: in the 2 MG tablet 00 morning and 2 mg in the evening. HYDROmorpho Yes 2mg Take 2 mg U nivers ne 8-30 by mouth ity of (DILAUDID) 00:00: every 4 [place] 2 mg tablet 00 (four) MD hours as [place] needed. [facility] ezetimibe Yes 10mg QD Take 10 mg UT (Zetia) 10 8-23 by mouth 1 Hea lth MG tablet 00:00: (one) time 00 each day. Spiriva Yes [facility] HandiHaler 8-20 Health 18 MCG 00:00: inhalation 00 capsule sulfamethox Yes TAKE ONE UT azole-trime 7-15 (1) Health thoprim 00:00: TABLET(S) (Bactrim 00 BY MOUTH DS) 800-160 THREE MG tablet TIMES WEEKLY. (FRIDAY, FRIDAY, AND FRIDAY). SUMAtriptan Yes 100mg Take 100 U T (Imitrex) 7-15 mg by Health 50 MG 00:00: mouth. tablet 00 voriconazol Yes Graft-versu 200mg Take 1 Univers e (VFEND) 7-15 s-host tablet ity of 200 mg 00:00: disease, (200 mg) [place] tablet 00 not by mouth MD otherwise twice [place] specified daily. n Cancer Center ketorolac Yes Headache 10mg Take 1 Un sarah (TORADOL) 7-15 tablet (10 ity of 10 mg 00:00: mg) by [place] tablet 00 mouth MD every 12 Anderso (twelve) n hours as Cancer needed for Center moderate pain (headache) . promethazin Yes Headache 12.5mg Take 1 Univers e 7-15 tablet ity of (PHENERGAN) 00:00: (12.5 mg) [place] 12.5 mg 00 by mouth MD tablet every 6 Anderso (six) n hours as Cancer needed for Center nausea. levothyroxi Yes Status post 25ug Take 1 Univers ne 7-15 stem cell tablet (25 ity of (SYNTHROID, 00:00: transplant mcg) by [place] LEVOTHROID) 00 mouth MD 25 mcg daily. Anderso tablet n Cancer Center sulfamethox Yes Graft-versu 1{tbl} Take 1 Univers azole-trime 7-15 s-host tablet by i ty of thoprim 00:00: disease, mouth 3 [place] as (BACTRIM 00 not (three) MD FREITAS) 800 otherwise times a [place] rso mg-160 mg specified week n per tablet Friday, Cancer Friday Center and Friday. topiramate Yes Status post 200mg Take 1 Univers (TOPAMAX) 7-15 stem cell tablet ity of 200 mg 00:00: transplant (200 mg) [place] tablet 00 by mouth MD at Anderso bedtime. n To prevent Cancer migraine Center fluticasone Yes Chronic 1{puff} Inhale 1 Univers propionate- 7-15 obstructive puff by ity of salmeterol 00:00: pulmonary mouth [place] (Advair 00 disease twice MD Mere) 500 with acute daily. 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 Cancer Center valACYclovi Yes Cellulitis, 500mg Take 1 Univers r (VALTREX) 7-15 not tablet ity of 500 mg 00:00: otherwise (500 mg) [place] tablet 00 specified by mouth MD daily. Anderso n Cancer Center SUMAtriptan Yes Status post 100mg Take 2 Univers (IMITREX) 7-15 stem cell tablets it y of 50 mg 00:00: transplant (100 mg) [place] tablet 00 by mouth MD once as Anderso needed for n migraine Cancer (Not to Center exceed 2 doses per day). metoprolol Yes Stem cells 100mg Take 1 Univers succinate 7-15 transplant tablet it y of (TOPROL XL) 00:00: status (100 mg) [place] 100 mg 24 00 by mouth MD hr tablet daily for Mario Alberto so blood n pressure. Cancer Hold if Center top number is less than 100 or heart rate is less than 60 Ventolin Yes Other form 2{puff} Inhale 2 Univers HFA 90 7-15 of dyspnea puffs by ity of mcg/actuati 00:00: mouth [place] on inhaler 00 every 6 MD (six) Anderso hours as n needed for Cancer wheezing Center or shortness of breath. voriconazol Yes Graft-versu 200mg Take 1 Univers e (VFEND) 7-15 s-host tablet ity of 200 mg 00:00: disease, (200 mg) [place] as tablet 00 not by mouth MD otherwise twice [place] specified daily. n Cancer Center ketorolac Yes Headache 10mg Take 1 Un sarah (TORADOL) 7-15 tablet (10 ity of 10 mg 00:00: mg) by [place] tablet 00 mouth MD every 12 Anderso (twelve) n hours as Cancer needed for Center moderate pain (headache) . promethazin Yes Headache 12.5mg Take 1 Univers e 7-15 tablet ity of (PHENERGAN) 00:00: (12.5 mg) [place] 12.5 mg 00 by mouth MD tablet every 6 Anderso (six) n hours as Cancer needed for Center nausea. levothyroxi Yes Status post 25ug Take 1 Univers ne 7-15 stem cell tablet (25 ity of (SYNTHROID, 00:00: transplant mcg) by [place] LEVOTHROID) 00 mouth MD 25 mcg daily. Anderso tablet n Cancer [place] sulfamethox Yes Graft-versu 1{tbl} Take 1 Univers azole-trime 7-15 s-host tablet by i ty of thoprim 00:00: disease, mouth 3 [place] as (BACTRIM 00 not (three) MD ZENA) 800 otherwise times a [place] rso mg-160 mg specified week n per tablet Friday, Cancer Friday Center and Friday. topiramate Yes Status post 200mg Take 1 Univers (TOPAMAX) 7-15 stem cell tablet ity of 200 mg 00:00: transplant (200 mg) [place] tablet 00 by mouth MD at [facility] bedtime. n To prevent Cancer migraine Center fluticasone Yes Chronic 1{puff} Inhale 1 Univers propionate- 7-15 obstructive puff by ity of salmeterol 00:00: pulmonary mouth [place] (Advair 00 disease twice MD Severino) 500 with acute daily. 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 Cancer Center valACYclovi Yes Cellulitis, 500mg Take 1 Univers r (VALTREX) 7-15 not tablet ity of 500 mg 00:00: otherwise (500 mg) [place] tablet 00 specified by mouth MD daily. Anderso n Cancer Center SUMAtriptan Yes Status post 100mg Take 2 Univers (IMITREX) 7-15 stem cell tablets it y of 50 mg 00:00: transplant (100 mg) [place] tablet 00 by mouth MD once as Anderso needed for n migraine Cancer (Not to Center exceed 2 doses per day). metoprolol Yes Stem cells 100mg Take 1 Univers succinate 7-15 transplant tablet it y of (TOPROL XL) 00:00: status (100 mg) [place] 100 mg 24 00 by mouth MD hr tablet daily for Mario Alberto so blood n pressure. Cancer Hold if Center top number is less than 100 or heart rate is less than 60 Ventolin Yes Other form 2{puff} Inhale 2 Univers HFA 90 7-15 of dyspnea puffs by ity of mcg/actuati 00:00: mouth [place] on inhaler 00 every 6 MD (six) Anderso hours as n needed for Cancer wheezing Center or shortness of breath. tacrolimus 2021- No Graft-versu Take 4 Univers (PROGRAF) 04-05 s-host capsules ity of 0.5 mg 00:00: 00:00 disease, (2.0 mg) [place] capsule 00 :00 not by mouth MD otherwise twice Anderso specified daily n Cancer Center tacrolimus 2021- No Graft-versu Take 4 Univers (PROGRAF) 04-05 s-host capsules ity of 0.5 mg 00:00: 00:00 disease, (2.0 mg) [place] capsule 00 :00 not by mouth MD otherwise twice Anderso specified daily n Cancer Center tacrolimus 2021- No Graft-versu Take 4 Univers (PROGRAF) 04-04 s-host capsules ity of 0.5 mg 00:00: 00:00 disease, (2.0 mg) [place] capsule 00 :00 not by mouth MD otherwise twice Anderso specified daily n Cancer Center voriconazol 2021- No Graft-versu 200mg Take 1 Univers e (VFEND) 04-04 s-host tablet ity o f 200 mg 00:00: 00:00 disease, (200 mg) [place] tablet 00 :00 not by mouth MD otherwise twice Anderso specified daily. n Cancer Center tacrolimus 2021- No Graft-versu Take 4 Univers (PROGRAF) 04-0415 s-host capsules ity of 0.5 mg 00:00: 00:00 disease, (2.0 mg) [place] capsule 00 :00 not by mouth MD otherwise twice Anderso specified daily n Cancer Center voriconazol 2021- No Graft-versu 200mg Take 1 Univers e (VFEND) 714 07-15 s-host tablet ity o f 200 mg 00:00: 00:00 disease, (200 mg) [place] tablet 00 :00 not by mouth MD otherwise twice Anderso specified daily. n [facility] traZODone Yes TAKE ONE UT (Desyrel) 7-12 (1) TO Health 50 MG 00:00: THREE (3) tablet 00 TABLET(S) BY MOUTH AT BEDTIME NEEDED. traZODone Yes TAKE ONE Univ ers (DESYREL) 7-12 (1) TO ity of 50 mg 00:00: THREE (3) [place] tablet 00 TABLET(S) MD BY MOUTH Anderso AT BEDTIME n NEEDED. [facility] levoFLOXaci 2021- No Sore 500mg Take 1 Un sarah n 03-14 throat, not tablet ity o f (LEVAQUIN) 00:00: 00:00 otherwise (500 mg) [place] 500 mg 00 :00 specified by mouth [facility] tablet [facility]. [facility] levoFLOXaci 2021- No Sore 500mg Take 1 Un sarah n 03-14 throat, not tablet ity o f (LEVAQUIN) 00:00: 00:00 otherwise (500 mg) [place] 500 mg 00 :00 specified by [facility] No Graft-versu 10mg Take 1 Univers (DELTASONE) 03-14 s-host tablet (10 ity of 10 mg 00:00: 00:00 disease, mg) by [place] tablet 00 :00 not mouth MD otherwise daily. Anderso specified Take 10 mg n po daily x Cancer 2 weeks Center then 5 mg po daily predniSONE 2021- No Graft-versu 10mg Take 1 Univers (DELTASONE) 03-14 s-host tablet (10 ity of 10 mg 00:00: 00:00 disease, mg) by [place] tablet 00 :00 not mouth MD otherwise daily. Anderso specified Take 10 mg n po daily x Cancer 2 weeks Center then 5 mg po daily ketorolac 2021- No Headache 10mg Take 1 U nivers (TORADOL) 6-21 07-15 tablet (10 ity of 10 mg 00:00: 00:00 mg) by [place] tablet 00 :00 mouth MD every 12 Anderso (twelve) n hours as Cancer needed for Center moderate pain (headache) . promethazin 2021- No Headache 12.5mg Take 1 Univers e 03-12-15 tablet ity of (PHENERGAN) 00:00: 00:00 (12.5 mg) [place] 12.5 mg 00 :00 by mouth MD tablet every 6 Anderso (six) n hours as Cancer needed for Center nausea. ketorolac 2021- No Headache 10mg Take 1 U nivers (TORADOL) 03-12-15 tablet (10 ity of 10 mg 00:00: 00:00 mg) by [place] tablet 00 :00 mouth MD every 12 Anderso (twelve) n hours as Cancer needed for Center moderate pain (headache) . promethazin 2021- No Headache 12.5mg Take 1 Univers e 03-12-15 tablet ity of (PHENERGAN) 00:00: 00:00 (12.5 mg) [place] 12.5 mg 00 :00 by mouth MD tablet every 6 Anderso (six) n hours as Cancer needed for Center nausea. tiotropium Yes Simple 18ug Inhale 1 U nivers (Spiriva 02-25 chronic capsule ity o f with 00:00: bronchitis (18 mcg) [place] as HandiHaler) 00 by mouth MD 18 mcg daily. Anderso inhalation n capsule Cancer Center tiotropium Yes Simple 18ug Inhale 1 U nivers (Spiriva 02-25 chronic capsule ity o f with 00:00: bronchitis (18 mcg) [place] HandiHaler) 00 by mouth MD 18 mcg daily. Anderso inhalation n capsule Cancer Center LORazepam Yes Anxiety, .5mg Take 1 Un sarah (ATIVAN) 6-02 not tablet ity of 0.5 mg 00:00: otherwise (0.5 mg) [place] tablet 00 specified by mouth MD every 6 Anderso (six) n hours as Cancer needed for Center anxiety. LORazepam Yes Anxiety, .5mg Take 1 Un sarah (ATIVAN) 6-02 not tablet ity of 0.5 mg 00:00: otherwise (0.5 mg) [place] tablet 00 specified by mouth MD every 6 Anderso (six) n hours as Cancer needed for Center anxiety. potassium 2021- No Status post 20meq Take 1 Univers chloride 623 stem cell tablet (20 ity of (Klor-Con 00:00: 00:00 transplant mEq) by [place] [id number]) 20 mEq 00 :00 mouth MD tablet daily. For Anderso 4 days n Cancer Center potassium 2021- No Status post 20meq Take 1 Univers chloride 02-21 stem cell tablet (20 ity of (Klor-Con 00:00: 00:00 transplant mEq) by [place] [id number]) 20 mEq 00 :00 mouth MD tablet daily. For [place] 4 days n Cancer Center unknown 2021- No by [facility] patient-sup 01-22 intratheca i ty of plied 13:25: 00:00 l route [place] medication 23 :00 continuous MD in sodium . Morphine [place] rso chloride n 0.9% (PF) Cancer intrathecal Center pump unknown 2021- No by [facility] patient-sup 01-22 intratheca i ty of plied 13:25: 00:00 l route [place] medication 23 :00 continuous MD in sodium . Morphine [place] rso chloride n 0.9% (PF) Cancer intrathecal Center pump ciprofloxac 2021- No Sepsis due 750mg Take 1 Univers in HCl 01-21 to tablet ity of (CIPRO) 750 00:00: 04:59 Pseudomonas (750 mg) [place] mg tablet 00 :00 by mouth MD every 12 Anderso (twelve) n hours for Cancer 12 days. Center ciprofloxac 2021- No Sepsis due 750mg Take 1 Univers in HCl 01-21 to tablet ity of (CIPRO) 750 00:00: 04:59 Pseudomonas (750 mg) [place] mg tablet 00 :00 by mouth MD every 12 Anderso (twelve) n hours for Cancer 12 days. Center SUMAtriptan Yes 50mg Take 50 mg Univers (IMITREX) 3-30 by mouth ity of 50 mg 16:48: once now. [place] [address] Medical Branch ursodioL Yes 300mg Take 300 Univ ers 300 mg 3-30 mg by ity of capsule 16:48: mouth 2 [place] [address] (two) Medical times Branch daily. letermovir Yes 480mg Take 480 Un sarah 480 mg 3-30 mg by ity of tablet 16:48: mouth [place] [address] every 24 Medical (twenty-fo Branch ur) hours. topiramate 0 Yes 100mg Take 100 Un sarah 100 mg 3-30 mg by ity of tablet 16:48: mouth. [place] [address] Medical Branch levothyroxi Yes 25ug Take 25 Uni vers ne 25 mcg 3-30 mcg by ity of tablet 16:48: mouth [place] [address] every Medical morning. Branch metoprolol Yes Take by Univ ers succinate 3-30 mouth. ity of 100 mg CSpX 16:48: [place] [address] Medical Branch gabapentin Yes 300mg Take 300 Un sarah 300 mg 3-30 mg by ity of capsule 16:48: mouth 3 [place] [address] (three) Medical times [place] daily. valACYclovi Yes 500mg Take 500 U nivers r 500 mg 3-30 mg by ity of tablet 16:48: mouth 2 [place] [address] (two) Medical times [place] daily. tacrolimus 2021- No Graft-versu Take 4 Univers (PROGRAF) 3-14 s-host capsules ity of 0.5 mg 00:00: 00:00 disease, (2.0 mg) [place] capsule 00 :00 not by mouth otherwise twice Anderso specified daily Cancer Center tacrolimus 2021- No Graft-versu Take 4 Univers (PROGRAF) 3-14 s-host capsules ity of 0.5 mg 00:00: 00:00 disease, (2.0 mg) [place] capsule 00 :00 not by mouth otherwise twice Anderso specified daily n Cancer Center levothyroxi Yes 25ug Take 25 UT ne 3-25 mcg by Health (Synthroid, 00:00: mouth. Levoxyl) 25 00 MCG tablet tacrolimus 2021- No Graft-versu Take 4 Univers (PROGRAF) 3-13 01-28 s-host capsules ity of 0.5 mg 00:00: 00:00 disease, (2.0 mg) [place] capsule 00 :00 not by mouth MD otherwise twice Anderso specified daily n [facility] tacrolimus 2021- No Graft-versu Take 4 Univers (PROGRAF) 12-13- s-host capsules ity of 0.5 mg 00:00: 00:00 disease, (2.0 mg) [place] capsule 00 :00 not by mouth MD otherwise twice [place]o specified daily n [facility] [facility] levothyroxi 2021- No Status post 25ug Take 1 Univers ne 12-12-15 stem cell tablet (25 ity of (SYNTHROID, 00:00: 00:00 transplant mcg) by [place] LEVOTHROID) 00 :00 mouth MD 25 mcg daily. Anderso tablet n [facility] levothyroxi 2021- No Status post 25ug Take 1 Univers ne 12-12-15 stem cell tablet (25 ity of (SYNTHROID, 00:00: 00:00 transplant mcg) by [place] LEVOTHROID) 00 :00 mouth MD 25 mcg daily. Anderso tablet n [facility] predniSONE 2021- No Graft-versu 5mg Take 1 Univers (DELTASONE) 11-13-24 s-host tablet (5 ity of 5 mg tablet 00:00: 00:00 disease, mg) by [place] 00 :00 not mouth MD otherwise every Anderso specified other day. n For 2 Cancer weeks, Center then STOP tacrolimus 2021- No Graft-versu Take 4 Univers (PROGRAF) 11-13- s-host capsules ity of 0.5 mg 00:00: 00:00 disease, (2.0 mg) [place] capsule 00 :00 not by mouth MD otherwise twice Anderso specified daily n [facility] predniSONE 2021- No Graft-versu 5mg Take 1 Univers (DELTASONE) 11-13-24 s-host tablet (5 ity of 5 mg tablet 00:00: 00:00 disease, mg) by [place] 00 :00 not mouth MD otherwise every Anderso specified other day. n For 2 Cancer weeks, Center then STOP tacrolimus 2021- No Graft-versu Take 4 Univers (PROGRAF) 11-13 03-24 s-host capsules ity of 0.5 mg 00:00: 00:00 disease, (2.0 mg) [place] capsule 00 :00 not by mouth MD otherwise twice Anderso specified daily n [facility] 2021- No Graft Apply Uni vers ne 11-08 versus host topically it y of (KENALOG) 00:00: 00:[place]int[place] 00 :00 affected MD 0.1% area(s) Anderso twice n daily. [facility] 2021- No Graft Apply Uni vers ne 11-08 versus host topically it y of (KENALOG) 00:00: 00:[place] oint[place] 00 :00 affected MD 0.1% area(s) Anderso twice n daily. [facility] clobetasol 2021- No Graft Apply Univ ers (Temovate) 11-08 versus host topically ity of 0.05% cream 00:00: 00:00 disease to [place] 00 :00 affected MD area(s) Anderso twice n daily. [facility] clobetasol 2021- No Graft Apply Univ ers (Temovate) 11-08 versus host topically ity of 0.05% cream 00:00: 00:00 disease to [place] 00 :00 affected MD area(s) Anderso twice n daily. [facility] sulfamethox 2021- No Graft-versu 1{tbl} Take 1 Univers azole-trime 11-05 s-host tablet by ity of thoprim 00:00: 00:00 disease, mouth 3 [place] (BACTRIM 00 :00 not (three) MD FREITAS) 800 otherwise times a [place] rso mg-160 mg specified week n per tablet Friday, [facility] and Friday. sulfamethox 2021- No Graft-versu 1{tbl} Take 1 [facility] azole-trime 11-05 s-host tablet by ity of thoprim 00:00: 00:00 disease, mouth 3 [place] (BACTRIM 00 :00 not (three) MD FREITAS) 800 otherwise times a [place] rso mg-160 mg specified week n per tablet Friday, [facility] and Friday. voriconazol 2021- No Graft-versu 200mg Take 1 Univers e (VFEND) 11-05 s-host tablet ity o f 200 mg 00:00: 00:00 disease, (200 mg) [place] tablet 00 :00 not by mouth MD otherwise twice Anderso specified daily. n Cancer [place] voriconazol 2021- No Graft-versu 200mg Take 1 Univers e (VFEND) 11-05 s-host tablet ity o f 200 mg 00:00: 00:00 disease, (200 mg) [place] tablet 00 :00 not by mouth MD otherwise twice Anderso specified daily. n [facility] [place] topiramate 2021- No Status post 200mg Take 1 Univers (TOPAMAX) 11-02 stem cell tablet it y of 200 mg 00:00: 00:00 transplant (200 mg) [place] tablet 00 :00 by mouth at [facility] bedtime. n To prevent Cancer migraine Center topiramate 2021- No Status post 200mg Take 1 Univers (TOPAMAX) 11-02 stem cell tablet it y of 200 mg 00:00: 00:00 transplant (200 mg) [place] tablet 00 :00 by mouth at [facility] bedtime. n To prevent Cancer migraine Center tacrolimus 2021- No Graft-versu Take 3 [facility] (PROGRAF) 11-02 s-host capsules ity of 0.5 mg 00:00: 00:00 disease, (1.5 mg) [place] capsule 00 :00 not by mouth MD otherwise twice Anderso specified daily n [facility] [place] tacrolimus 2021- No Graft-versu Take 3 Univers (PROGRAF) 11-02 s-host capsules ity of 0.5 mg 00:00: 00:00 disease, (1.5 mg) [place] capsule 00 :00 not by mouth MD otherwise twice Anderso specified daily n [facility] [place] ruxolitinib Yes Status post 10mg Take 1 Univers (Jakafi) 10 10-29 stem cell tablet (10 ity of mg tablet 00:00: transplant mg) by [place] 00 mouth twice Anderso daily. n [facility] ruxolitinib 2021- No Status post 10mg Take 1 Univers (Jakafi) 10 10-29 stem cell tablet (10 ity of mg tablet 00:00: 00:00 transplant mg) by [place] 00 :00 mouth twice Anderso daily. 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 Anderso mcg-50 exacerbatio n mcg/inhalat n [facility] inhaler fluticasone 2021- No Chronic 1{puff} Inhale 1 [facility] propionate- 10-25 obstructive puff by ity of salmeterol 00:00: 00:00 pulmonary mouth [place] (Advair 00 :00 disease twice MD Diskus) 500 with acute daily. Anderso mcg-50 exacerbatio n mcg/inhalat n [facility] inhaler ruxolitinib Yes 10mg Take 10 mg [place] (Jakafi) 10-23 by mouth. [facility] MG chemo 00:00: tablet 00 predniSONE 2021- No Graft-versu 5mg Take 1 Univers (DELTASONE) 10-23 s-host tablet (5 ity of 5 mg tablet 00:00: 00:00 disease, mg) by [place] 00 :00 not mouth MD otherwise daily. Anderso specified n [facility] predniSONE 2021- No Graft-versu 5mg Take 1 Univers (DELTASONE) 10-23 s-host tablet (5 ity of 5 mg tablet 00:00: 00:00 disease, mg) by [place] 00 :00 not mouth MD otherwise daily. Anderso specified n [facility] ruxolitinib 2021- No Status post 10mg Take 1 Univers (Jakafi) 10 10-23 stem cell tablet (10 ity of mg tablet 00:00: 00:00 transplant mg) by [place] 00 :00 mouth MD hair Andersisis daily. n [facility] ruxolitinib 2021- No Status post 10mg Take 1 Univers (Jakafi) 10 10-23 stem cell tablet (10 ity of mg tablet 00:00: 00:00 transplant mg) by [place] 00 :00 mouth MD hair Andpaul daily. n [facility] ondansetron 2021- No Slow IV Un sarah (ZOFRAN 10-22 Push, ONCE ity o f (PF)) 13:51: 14:10 INTRA [place] injection 00 :00 PROCEDURE, Medi candy Starting Branch on Fri10/22/21 at 0751, Until Fri10/22/21 at 0810, Routine, Intra-op dexamethaso 2021- No Intravenou Univers ne 10-22 s, ONCE ity of (DECADRON 13:50: 14:10 INTRA [place] PHOSPHATE) 00 :00 PROCEDURE, Med ical injection Starting Branch on Fri10/22/21 at 0750, Until Fri10/22/21 at 0810, Routine, Intra-op ciprofloxac 2021- No IV Unive rs in in 5 % 10-22 Piggyback, ity of dextrose 13:49: 14:10 Administer [place] (CIPRO) 00 :00 over 60 Medical piggyback Minutes, Branch ONCE INTRA PROCEDURE, Starting on Fri10/22/21 at 0749, Until Fri10/22/21 at 0810, MARICRUZ, Intra-op sodium 2021- No PRN, Univers chloride 10-22 Starting ity of 0.9 % 13:42: 16:54 on Mon [place] irrigation 00 :36 10/22/21 at Med ical solution 0742, Branch Until Fri10/22/21 at 1054, Intra-op bupivacaine 2021- No PRN, Unive rs (preserv 10-22 Starting ity of free) 0.5% 13:42: 16:54 on Fri [place] (SENSORCAIN 00 :36 10/22/21 at [place] dical E MPF) 0.5 0742, Branch % (5 mg/mL) Until Mon injection 10/22/21 at 1054, Routine, Intra-op propofoL IV 2021- No Intravenou Univers infusion 10-22 s, ONCE ity of 13:37: 14:10 INTRA [place] 00 :00 PROCEDURE, Medical Starting Branch on Fri10/22/21 at 0737, Until Fri10/22/21 at 0810, Routine, Intra-op FENTanyl PF No Intravenou Univers (SUBLIMAZE 10-22 s, ONCE ity o f (PF)) 13:37: 14:10 INTRA [place] injection 00 :00 PROCEDURE, Medi candy Starting Branch on Fri10/22/21 at 0737, Until Fri10/22/21 at 0810, Routine, Intra-op lidocaine No Intravenou U nivers 1% 10-22 s, ONCE ity of (XYLOCAINE) 13:35: 14:10 INTRA [place] 100 mg/10 00 :16 PROCEDURE, Medi candy mL (1 %) Starting Branch injection on Fri10/22/21 at 0735, Until Fri10/22/21 at 0810, Routine, Intra-op lactated 2021- No IV Univers ringers IV 10-22 Infusion, ity of infusion 13:28: 14:10 CONTINUOUS [place] 00 :00 PRN, Medical Starting Branch on Fri10/22/21 at 0728, Until Fri10/22/21 at 0810, Routine, Intra-op midazolam 2021- No IV Push, Uni vers (VERSED) 10-22 ONCE INTRA ity of injection 13:28: 14:10 PROCEDURE, [place] 00 :00 Starting Medical on Fri Branch 10/22/21 at 0728, Until Fri10/22/21 at 0810, Routine, Intra-op lactated 2021- No 1000mL at 42 Unive rs ringers IV 10-22 mL/hr, ity of infusion 13:00: 12:51 1,000 mL, [place] 1,000 mL 00 :00 IV Medical Infusion, Branch ONCE, 1 dose, On Fri10/22/21 at 0700, Routine, DSU Pre-op lactated 2021- No 1000mL at 42 Unive rs ringers IV 1-31 01-31 mL/hr, ity of infusion 13:00: 12:51 1,000 mL, [place] 1,000 mL 00 :00 IV Medical Infusion, Branch ONCE, 1 dose, On Fri10/22/21 at 0700, Routine, DSU Pre-op valACYclovi 202-0 Yes 500mg Take 500 U nivers r 500 mg 1-31 mg by ity of tablet 08:54: mouth 2 [place] [address] ([facility]) Medical times Branch daily. valACYclovi 2021-0 Yes 500mg Take 500 U nivers r 500 mg 1-31 mg by ity of tablet 08:54: mouth 2 [place] [address] (two) Medical times Branch daily. valACYclovi 2021-0 Yes 500mg Take 500 U nivers r 500 mg 1-31 mg by ity of tablet 08:54: mouth 2 [place] [address] (two) Medical times Branch daily. valACYclovi 2021-0 Yes 500mg Take 500 U nivers r 500 mg 1-31 mg by ity of tablet 08:54: mouth 2 [place] [address] ([facility]) Medical times Branch daily. SUMAtriptan 2021-0 Yes 50mg Take 50 mg Univers (IMITREX) 1-31 by mouth ity of 50 mg 08:54: once now. [address] Branch ursodioL 2021-0 Yes 300mg Take 300 Univ ers 300 mg 1-31 mg by ity of capsule 08:54: mouth 2 [place] [address] ([facility]) Medical times [place] daily. letermovir 2021-0 Yes 480mg Take 480 Un sarah 480 mg 1-31 mg by ity of tablet 08:54: mouth [place] [address] every 24 Medical (twenty-fo Branch ur) hours. topiramate 2021-0 Yes 100mg Take 100 Un [place]ah 100 mg 1-31 mg by ity of tablet 08:54: mouth. [place] [address] Medical Branch levothyroxi 2021-0 Yes 25ug Take 25 Uni vers ne 25 mcg 1-31 mcg by ity of tablet 08:54: mouth [place] [address] every Medical morning. Branch metoprolol 2021-0 Yes Take by Univ ers succinate 1-31 mouth. ity of 100 mg CSpX 08:54: [place] [address] Medical Branch gabapentin 2021-0 Yes 300mg Take 300 Un [place]ah 300 mg 1-31 mg by ity of capsule 08:54: mouth 3 [place] [address] (three) Medical times Branch daily. SUMAtriptan 2021-0 Yes 50mg Take 50 mg Univers (IMITREX) 1-31 by mouth ity of 50 mg 08:54: once now. [place] [address] Medical Branch ursodioL 2021-0 Yes 300mg Take 300 Univ ers 300 mg 1-31 mg by ity of capsule 08:54: mouth 2 [place] [address] (two) Medical times Branch daily. letermovir 2021-0 Yes 480mg Take 480 Un [place] 480 mg 1-31 mg by ity of tablet 08:54: mouth [place] [address] every 24 Medical (twenty-fo Branch ur) hours. topiramate 2021-0 Yes 100mg Take 100 Un [place] 100 mg 1-31 mg by ity of tablet 08:54: mouth. [address] Branch levothyroxi 2021-0 Yes 25ug Take 25 Uni vers ne 25 mcg 1-31 mcg by ity of tablet 08:54: mouth [place] [address] every Medical morning. Branch metoprolol 2021-0 Yes Take by Univ ers succinate 1-31 mouth. ity of 100 mg CSpX 08:54: [address] Branch gabapentin 2021-0 Yes 300mg Take 300 Un [place]ah 300 mg 1-31 mg by ity of capsule 08:54: mouth 3 [place] [address] (three) Medical times [place] daily. SUMAtriptan 2021-0 Yes 50mg Take 50 mg Univers (IMITREX) 1-31 by mouth ity of 50 mg 08:54: once now. [place] [address] Medical Branch ursodioL 2021-0 Yes 300mg Take 300 Univ ers 300 mg 1-31 mg by ity of capsule 08:54: mouth 2 [place] [address] (two) Medical times [place] daily. letermovir 2021-0 Yes 480mg Take 480 Un [place]ah 480 mg 1-31 mg by ity of tablet 08:54: mouth [place] [address] every 24 Medical (twenty-fo Branch ur) hours. topiramate 2021-0 Yes 100mg Take 100 Un [place] 100 mg 1-31 mg by ity of tablet 08:54: mouth. [address] Branch levothyroxi 2021-0 Yes 25ug Take 25 Uni vers ne 25 mcg 1-31 mcg by ity of tablet 08:54: mouth [place] [address] every Medical morning. Branch metoprolol 0 Yes Take by [facility] ers succinate 1-31 mouth. ity of 100 mg CSpX 08:54: [address] Branch gabapentin 0 Yes 300mg Take 300 Un [place] 300 mg 1-31 mg by ity of capsule 08:54: mouth 3 [place] [address] (three) Medical times Branch daily. SUMAtriptan 0 Yes 50mg Take 50 mg Univers (IMITREX) 31 by mouth ity of 50 mg 08:54: once now. [address] Branch ursodioL 0 Yes 300mg Take 300 Univ ers 300 mg 1-31 mg by ity of capsule 08:54: mouth 2 [place] [address] (two) Medical times [place] daily. letermovir 0 Yes 480mg Take 480 Un [place] 480 mg 1-31 mg by ity of tablet 08:54: mouth [place] [address] every 24 Medical (twenty-fo Branch ur) hours. topiramate 0 Yes 100mg Take 100 Un [place] 100 mg 1-31 mg by ity of tablet 08:54: mouth. [address] Branch levothyroxi 0 Yes 25ug Take 25 Uni vers ne 25 mcg 1-31 mcg by ity of tablet 08:54: mouth [place] [address] every Medical morning. Branch metoprolol 0 Yes Take by [facility] ers succinate -31 mouth. ity of 100 mg CSpX 08:54: [address] gabapentin 0 Yes 300mg Take 300 Un [place] 300 mg 1-31 mg by ity of capsule 08:54: mouth 3 [place] [address] (three) Medical times Branch daily. No known 0 No Univers medications -31 ity of 06:36: [address] Branch ketorolac 0 Yes 10mg Take 10 mg [facility] (Toradol) 10-22 by mouth. Healt h 10 MG 00:00: tablet 00 promethazin 0 Yes 12.5mg Take 12.5 UT e 1-31 mg by Health (Phenergan) 00:00: mouth. 12.5 MG 00 tablet valACYclovi 2021-0 Yes 500mg Take 500 U T r (Valtrex) 1-31 mg by Health 500 MG 00:00: mouth. 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 [facility] valACYclovi 2021- No Cellulitis, 500mg Take 1 Univers r (VALTREX) 10-22 not tablet ity o f 500 mg 00:00: 00:00 otherwise (500 mg) [place] tablet 00 :00 specified by mouth MD daily. 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 Cancer Center valACYclovi 2021- No Cellulitis, 500mg Take 1 Univers r (VALTREX) 10-22 not tablet ity o f 500 mg 00:00: 00:00 otherwise (500 mg) [place] tablet 00 :00 specified by mouth MD daily. Anderso n Cancer [place] ketorolac 2021- No Headache 10mg Take 1 U nivers (TORADOL) 10-2220 tablet (10 ity of 10 mg 00:00: 00:00 mg) by [place] tablet 00 :00 mouth MD every 12 Anderso (twelve) n hours as Cancer needed for Center moderate pain (headache) . promethazin 2021- No Headache 12.5mg Take 1 Univers e 10-2220 tablet ity of (PHENERGAN) 00:00: 00:00 (12.5 mg) [place] 12.5 mg 00 :00 by mouth MD tablet every 6 Anderso (six) n hours as Cancer needed for Center nausea. ketorolac 2021- No Headache 10mg Take 1 U nivers (TORADOL) 10-2220 tablet (10 ity of 10 mg 00:00: 00:00 mg) by [place] tablet 00 :00 mouth MD every 12 Anderso (twelve) n hours as Cancer needed for Center moderate pain (headache) . promethazin 2021-0 2022- No Headache 12.5mg Take 1 Univers e 10-22 06-20 tablet ity of (PHENERGAN) 00:00: 00:00 (12.5 mg) [place] 12.5 mg 00 :00 by mouth MD tablet every 6 Anderso (six) n hours as Cancer needed for Center nausea. SUMAtriptan 2021-0 Yes 50mg Take 50 mg Univers (IMITREX) 1-26 by mouth ity of 50 mg 13:59: once now. [place] [address] Medical Branch ursodioL 2021-0 Yes 300mg Take 300 Univ ers 300 mg 1-26 mg by ity of capsule 13:59: mouth 2 [place] [address] (two) Medical times Branch daily. letermovir 2021-0 Yes 480mg Take 480 Un sarah 480 mg 1-26 mg by ity of tablet 13:59: mouth [place] [address] every 24 Medical (twenty-fo Branch ur) hours. topiramate 2021-0 Yes 100mg Take 100 Un [place] 100 mg 1-26 mg by ity of tablet 13:59: mouth. [place] [address] Medical Branch levothyroxi 2021-0 Yes 25ug Take 25 Uni vers ne 25 mcg 1-26 mcg by ity of tablet 13:59: mouth [place] [address] every Medical morning. Branch metoprolol 2021-0 Yes Take by Univ ers succinate 1-26 mouth. ity of 100 mg CSpX 13:59: [place] [address] Medical Branch gabapentin 2021-0 Yes 300mg Take 300 Un sarah 300 mg 1-26 mg by ity of capsule 13:59: mouth 3 [place] [address] (three) Medical times Branch daily. valACYclovi 2021-0 Yes 500mg Take 500 U nivers r 500 mg 1-26 mg by ity of tablet 13:59: mouth 2 [place] [address] (two) Medical times Branch daily. SUMAtriptan 2021-0 Yes 50mg Take 50 mg Univers (IMITREX) 1-26 by mouth ity of 50 mg 13:59: once now. [place] [address] Medical Branch ursodioL 2021-0 Yes 300mg Take 300 Univ ers 300 mg 1-26 mg by ity of capsule 13:59: mouth 2 [place] [address] (two) Medical times Branch daily. letermovir 2021-0 Yes 480mg Take 480 Un sarah 480 mg 1-26 mg by ity of tablet 13:59: mouth [place] [address] every 24 Medical (twenty-fo Branch ur) hours. topiramate 0 Yes 100mg Take 100 Un sarah 100 mg 1-26 mg by ity of tablet 13:59: mouth. [place] [address] Medical Branch levothyroxi 0 Yes 25ug Take 25 Uni vers ne 25 mcg 1-26 mcg by ity of tablet 13:59: mouth [place] [address] every Medical morning. Branch metoprolol 0 Yes Take by Univ ers succinate 1-26 mouth. ity of 100 mg CSpX 13:59: [place] [address] Medical Branch gabapentin 0 Yes 300mg Take 300 Un sarah 300 mg 1-26 mg by ity of capsule 13:59: mouth 3 [place] [address] (three) Medical times Branch daily. valACYclovi 0 Yes 500mg Take 500 U nivers r 500 mg 1-26 mg by ity of tablet 13:59: mouth 2 [place] [address] (two) Medical times Branch daily. SUMAtriptan 0 Yes 50mg Take 50 mg Univers (IMITREX) 1-26 by mouth ity of 50 mg 13:59: once now. [place] [address] Medical Branch ursodioL 0 Yes 300mg Take 300 Univ ers 300 mg 1-26 mg by ity of capsule 13:59: mouth 2 [place] [address] (two) Medical times Branch daily. letermovir 0 Yes 480mg Take 480 Un [place]ah 480 mg 1-26 mg by ity of tablet 13:59: mouth [place] [address] every 24 Medical (twenty-fo Branch ur) hours. topiramate 2021-0 Yes 100mg Take 100 Un sar[place] 100 mg 1-26 mg by ity of tablet 13:59: mouth. [place] [address] Medical Branch levothyroxi 0 Yes 25ug Take 25 Uni vers ne 25 mcg 1-26 mcg by ity of tablet 13:59: mouth [place] [address] every Medical morning. Branch metoprolol 0 Yes Take by Univ ers succinate 1-26 mouth. ity of 100 mg CSpX 13:59: [place] [address] Medical Branch gabapentin 2021-0 Yes 300mg Take 300 Un sarah 300 mg 1-26 mg by ity of capsule 13:59: mouth 3 [place] [address] (three) Medical times Branch daily. valACYclovi Yes 500mg Take 500 U nivers r 500 mg 1-26 mg by ity of tablet 13:59: mouth 2 [place] (two) Medical times Branch daily. albuterol Yes Ventolin [facility] (Ventolin 1-26 HFA 90 Health HFA) 108 00:00: mcg/actuat (90 Base) 00 ion MCG/ACT aerosol inhaler inhaler ruxolitinib 2021- No Status post 10mg Take 2 Univers (Jakafi) 5 10-11 stem cell tablets ity of mg tablet 00:00: 00:00 transplant (10 mg) by [place] 00 :00 mouth MD twice Anderso daily. n [facility] ruxolitinib 2021- No Status post 10mg Take 2 Univers (Jakafi) 5 10-11 stem cell tablets ity of mg tablet 00:00: 00:00 transplant (10 mg) by [place] 00 :00 mouth twice Anderso daily. n [facility] tacrolimus Yes Take 2 [facility] (Prograf) 1-10 capsules Health 0.5 MG 00:00: (1.0 mg) capsule 00 by mouth twice daily voriconazol Yes 200mg Take 200 U T e (Vfend) 1-10 mg by Health 200 MG 00:00: mouth. tablet 00 sulfamethox 2021- No Graft-versu 1{tbl} Take 1 Univers azole-trime 10-01 s-host tablet by ity of thoprim 00:00: 00:00 disease, mouth 3 [place] (BACTRIM 00 :00 not (three) MD FREITAS) 800 otherwise times a [place] rso mg-160 mg specified week n per tablet Friday, [facility] and Friday. voriconazol 2021- No Graft-versu 200mg Take 1 Univers e (VFEND) -11-05 s-host tablet ity o f 200 mg 00:00: 00:00 disease, (200 mg) [place] tablet 00 :00 not by mouth otherwise twice Anderso specified daily. n [facility] sulfamethox 2021- No Graft-versu 1{tbl} Take 1 Univers azole-trime 10-01 s-host tablet by ity of thoprim 00:00: 00:00 disease, mouth 3 [place] (BACTRIM 00 :00 not (three) MD FREITAS) 800 otherwise times a [place] rso mg-160 mg specified week n per tablet Friday, [facility] and Friday. voriconazol 2021- No Graft-versu 200mg Take 1 Univers e (VFEND) 10-01 s-host tablet ity o f 200 mg 00:00: 00:00 disease, (200 mg) [place] tablet 00 :00 not by mouth MD otherwise twice Anderso specified daily. [facility] tacrolimus 2021- No Graft-versu Take 3 Univers (PROGRAF) 10-01 s-host capsules ity of 0.5 mg 00:00: 00:00 disease, (1.5 mg) [place] capsule 00 :00 not by mouth MD otherwise twice Anderso specified daily [facility] tacrolimus 2021- No Graft-versu Take 3 Univers (PROGRAF) 10-01 s-host capsules ity of 0.5 mg 00:00: 00:00 disease, (1.5 mg) [place] capsule 00 :00 not by mouth MD otherwise twice Anderso specified daily [facility] predniSONE 2021- No Graft-versu 10mg Take a Univers (DELTASONE) 09-27 s-host HALF ity o f 20 mg 00:00: 00:00 disease, tablet (10 [place] tablet 00 :00 not mg) by MD otherwise mouth Anderso specified daily. [facility] predniSONE 2021- No Graft-versu 10mg Take a Univers (DELTASONE) 09-27 s-host HALF ity o f 20 mg 00:00: 00:00 disease, tablet (10 [place] tablet 00 :00 not mg) by MD otherwise mouth Anderso specified daily. [facility] Fluticasone Yes 1{puff} Q.5D Inhale 1 [facility] -Salmeterol 1-04 puff in Healt h (Advair 00:00: the diskus) 00 morning 500-50 and 1 puff MCG/ACT before diskus bedtime. inhaler fluticasone 2021- No Chronic 1{puff} Inhale 1 Univers propionate- 09-25 02-03 obstructive puff by ity of salmeterol 00:00: 00:00 pulmonary mouth [place] (Advair 00 :00 disease twice MD Diskus) 500 with acute daily. Anderso mcg-50 exacerbatio n mcg/inhalat n Cancer ion [facility] inhaler fluticasone 2021- No Chronic 1{puff} Inhale 1 Univers propionate- 09-25 02-03 obstructive puff by ity of salmeterol 00:00: 00:00 pulmonary mouth [place] (Advair 00 :00 disease twice MD Diskus) 500 with acute daily. Anderso mcg-50 exacerbatio n mcg/inhalat n Cancer ion [facility] inhaler budesonide- 2021- No Dyspnea, 2{puff} Inhale 2 Univers formoterol 09-24-06 not puffs by ity of (Symbicort) 00:00: 00:00 otherwise mouth [place] 160-4.5 00 :00 specified twice MD mcg/actuati daily. Surinder o on inhaler n Cancer Center budesonide- 2021- No Dyspnea, 2{puff} Inhale 2 Univers formoterol 09-24-06 not puffs by ity of (Symbicort) 00:00: 00:00 otherwise mouth [place] 160-4.5 00 :00 specified twice MD mcg/actuati daily. Surinder o on inhaler n Cancer [place] topiramate 2020-09- No Status post 200mg Take 1 Univers (TOPAMAX) 11-18 stem cell tablet it y of 200 mg 00:00: 00:00 transplant (200 mg) [place] tablet 00 :00 by mouth at Anders bedtime. n To prevent Cancer migraine Center topiramate 2020-09- No Status post 200mg Take 1 Univers (TOPAMAX) 11-18 stem cell tablet it y of 200 mg 00:00: 00:00 transplant (200 mg) [place] tablet 00 :00 by mouth at Anders bedtime. n To prevent Cancer migraine Center predniSONE 2021-1 2022- No Graft-versu 20mg Take 1 Univers (DELTASONE) 11-07 s-host tablet (20 ity of 20 mg 00:00: 00:00 disease, mg) by [place] tablet 00 :00 not mouth MD otherwise daily. Anderso specified n Cancer Center predniSONE 2020-09- No Graft-versu 20mg Take 1 Univers (DELTASONE) 11-07 s-host tablet (20 ity of 20 mg 00:00: 00:00 disease, mg) by [place] tablet 00 :00 not mouth MD otherwise daily. [facility] specified n [facility] dexamethaso 2020-09- No Graft-versu 5mL Swish and [facility] ne 10-23 s-host spit 5 mL ity of (DECADRON) 00:00: 00:00 disease, 3 (three) [place] 0.5 mg/5 mL 00 :00 not times a MD mouthwash otherwise day for 1 [facility] specified week. Use n as needed Cancer up to 3 Center times daily thereafter . Do not eat food or drink 30 minutes after use. dexamethaso 2020-09- No Graft-versu 5mL Swish and Univers ne 10-23 s-host spit 5 mL ity of (DECADRON) 00:00: 00:00 disease, 3 (three) [place] 0.5 mg/5 mL 00 :00 not times a MD mouthwash otherwise day for 1 [place] specified week. Use n as needed Cancer up to 3 Center times daily thereafter . Do not eat food or drink 30 minutes after use. dexamethaso 2020-09- No Graft-versu 5mL Swish and Univers ne 10-23 s-host spit 5 mL ity of (DECADRON) 00:00: 00:00 disease, 3 (three) [place] 0.5 mg/5 mL 00 :00 not times a MD mouthwash otherwise day. Swish [place] specified and spit 5 n mL 3 times Cancer Daily for Center 1 week. Use as needed up to 3 times daily thereafter . Do not eat food or drink 30 minutes after use. dexamethaso 2020-09- No Graft-versu 5mL Swish and Univers ne 1-30 12-01 s-host spit 5 mL ity of (DECADRON) 00:00: 00:00 disease, 3 (three) [place] 0.5 mg/5 mL 00 :00 not times a MD mouthwash otherwise day. Swish [place] specified and spit 5 n mL 3 times Cancer Daily for Center 1 week. Use as needed up to 3 times daily thereafter . Do not eat food or drink 30 minutes after use. ruxolitinib 2020-09- No Graft-versu 5mg Take 1 Univers (Jakafi) 5 10-09-20 s-host tablet (5 i ty of mg tablet 00:00: 00:00 disease, mg) by [place] 00 :00 not mouth MD otherwise twice [place] specified daily. [facility] ruxolitinib 2020-09- No Graft-versu 5mg Take 1 Univers (Jakafi) 5 10-0920 s-host tablet (5 i ty of mg tablet 00:00: 00:00 disease, mg) by [place] 00 :00 not mouth MD otherwise twice [place] specified daily. [facility] letermovir 2020-09- No Cytomegalov 480mg Take 1 Univers (PREVYMIS) 10-09 12-16 irus tablet ity of 480 mg 00:00: 00:00 infection (480 mg) [place] tablet 00 :00 [facility] letermovir 2020-09- No Cytomegalov 480mg Take 1 Univers (PREVYMIS) 10-09 12-16 irus tablet ity of 480 mg 00:00: 00:00 infection (480 mg) [place] tablet 00 :00 by mouth MD daily. Nia [facility] voriconazol 2020-09- No Graft-versu 200mg Take 1 Univers e (VFEND) 10-07 01-10 s-host tablet ity o f 200 mg 00:00: 00:00 disease, (200 mg) [place] tablet 00 :00 not by mouth MD otherwise twice [place] specified daily. [facility] voriconazol 2020-09- No Graft-versu 200mg Take 1 Univers e (VFEND) 10-07 01-10 s-host tablet ity o f 200 mg 00:00: 00:00 disease, (200 mg) [place] tablet 00 :00 not by mouth MD otherwise twice [facility] specified daily. n Cancer Center predniSONE 2020-09- No Graft-versu 60mg Take 3 Univers (DELTASONE) 1-16 12-16 s-host tablets it y of 20 mg 00:00: 00:00 disease, (60 mg) by [place] tablet 00 :00 not mouth MD otherwise daily. [facility] specified n [facility] letermovir 2020-09- No Graft-versu 480mg Take 1 Univers (Prevymis) 1-16 12-16 s-host tablet ity of 480 mg 00:00: 00:00 disease, (480 mg) [place] tablet 00 :00 not by mouth MD otherwise daily. [facility] specified n [facility] predniSONE 2020-09- No Graft-versu 60mg Take 3 [facility] (DELTASONE) 1-16 12-16 s-host tablets it y of 20 mg 00:00: 00:00 disease, (60 mg) by [place] tablet 00 :00 not mouth MD otherwise daily. [place] specified n [facility] letermovir 2020-09- No Graft-versu 480mg Take 1 Univers (Prevymis) 1-16 12-16 s-host tablet ity of 480 mg 00:00: 00:00 disease, (480 mg) [place] tablet 00 :00 not by mouth MD otherwise daily. [facility] specified n [facility] Ventolin 2020-09- No Other form 2{puff} Inhale 2 [facility] HFA 90 10-03 07-15 of dyspnea puffs by it y of mcg/actuati 00:00: 00:00 mouth [place] inhaler 00 :00 every 6 MD (six) Anderso hours as n needed for Cancer wheezing Center or shortness of breath. Ventolin 2020-09- No Other form 2{puff} Inhale 2 [facility] HFA 90 12 07-15 of dyspnea puffs by it y of mcg/actuati 00:00: 00:00 mouth [place] on inhaler 00 :00 every 6 MD (six) [place] hours as n needed for Cancer wheezing Center or shortness of breath. heparin, 2020-09- No Complicatio Inject 2 [facility] PF, 100 1- 06-23 n of bone ml (200 ity of units/mL 00:00: 00:00 marrow units) [place] injection 00 :00 transplant, into each MD not lumen of Anderso otherwise central n specified venous Cancer catheter Center daily as directed. Discard excess volume to administer 2 mL. heparin, 2020-09- No Complicatio Inject 2 [facility] PF, 100 09-3023 n of bone ml (200 ity of units/mL 00:00: 00:00 marrow units) [place] injection 00 :00 transplant, into each MD not lumen of Anderso otherwise central n specified venous Cancer catheter Center daily as directed. Discard excess volume to administer 2 mL. ruxolitinib 2020-09- No Graft-versu 5mg Take 1 Univers (Jakafi) 5 09-25 11-18 s-host tablet (5 i ty of mg tablet 00:00: 00:00 disease, mg) by [place] 00 :00 not mouth MD otherwise twice [place] specified daily. n Cancer Center predniSONE 2020-09- No Graft-versu 100mg Take 5 Univers (DELTASONE) 09-25 11-16 s-host tablets it y of 20 mg 00:00: 00:00 disease, (100 mg) [place] tablet 00 :00 not by mouth MD otherwise daily. [place] specified n Cancer Center promethazin 2020-09- No Headache 12.5mg Take 1 Univers e 0-04 22-31 tablet ity of (PHENERGAN) 00:00: 00:00 (12.5 mg) [place] 12.5 mg 00 :00 by mouth MD tablet every 6 Anderso (six) n hours as Cancer needed for Center nausea. ketorolac 2020-09- No Headache 10mg Take 1 U nivers (TORADOL) 0-31 tablet (10 ity of 10 mg 00:00: 00:00 mg) by [place] tablet 00 :00 mouth MD every 12 [place] (twelve) n hours as Cancer needed for Center moderate pain (headache) . promethazin 2020-09- No Headache 12.5mg Take 1 Univers e 0-08 -31 tablet ity of (PHENERGAN) 00:00: 00:00 (12.5 mg) [place] 12.5 mg 00 :00 by mouth MD tablet every 6 [place] (six) n hours as Cancer needed for Center nausea. ketorolac 2020-09- No Headache 10mg Take 1 U nivers (TORADOL) 10-22 tablet (10 ity of 10 mg 00:00: 00:00 mg) by [place] tablet 00 :00 mouth MD every 12 Anderso (twelve) n hours as Cancer needed for Center moderate pain (headache) . ursodiol Yes 300mg Take 300 [facility] (Actigall) 06-07 mg by [facility] 300 MG 00:00: mouth. capsule 00 ursodiol Yes Graft-versu 300mg Take 1 Univers (ACTIGALL) 06-07 s-host capsule ity of 300 mg 00:00: disease, (300 mg) [place] capsule 00 not by mouth 3 MD otherwise (three) [place] specified times a n day. Cancer Center ursodiol 2021- No Graft-versu 300mg Take 1 Univers (ACTIGALL) 06-07-14 s-host capsule ity of 300 mg 00:00: 00:00 disease, (300 mg) [place] capsule 00 :00 not by mouth 3 MD otherwise (three) [place] specified times a n day. Cancer Center SUMAtriptan 2021- No Status post 100mg Take 2 Univers (IMITREX) 06-07 stem cell tablets i ty of 50 mg 00:00: 00:00 transplant (100 mg) [place] tablet 00 :00 by mouth MD once as [place] needed for n migraine Cancer (Not to Center exceed 2 doses per day). SUMAtriptan 2021- No Status post 100mg Take 2 Univers (IMITREX) 06-0715 stem cell tablets i ty of 50 mg 00:00: 00:00 transplant (100 mg) [place] tablet 00 :00 by mouth MD once as [place] needed for n migraine Cancer (Not to Center exceed 2 doses per day). 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 Cancer Center isavuconazo 2020- No Graft-versu 372mg Take 2 Univers nium 06-07 s-host capsules ity of (Cresemba) 00:00: 00:00 disease, (372 mg) [place] 186 mg 00 :00 not by mouth MD capsule otherwise daily. Mario Alberto so specified n Cancer [place] isavuconazo 2020- No Graft-versu 372mg Take 2 Univers nium 06-07 s-host capsules ity of (Cresemba) 00:00: 00:00 disease, (372 mg) [place] 186 mg 00 :00 not by mouth MD capsule otherwise daily. [place] Alberto so specified n Cancer [place] letermovir 2020- No Cytomegalov 480mg Take 1 Univers (PREVYMIS) 06-07 irus tablet ity of 480 mg 00:00: 00:00 infection (480 mg) [place] tablet 00 :00 by mouth MD daily. [facility] n Cancer [place] predniSONE 2020- No Cellulitis, 5mg Take 0.5 Univers (DELTASONE) 06-07 not tablets (5 i ty of 10 mg 00:00: 00:00 otherwise mg) [place] tablet 00 :00 specified mouth MD daily. Anders n Cancer [place] topiramate 2020- No Status post 200mg Take 1 Univers (TOPAMAX) 06-04 stem cell tablet it y of 200 mg 00:00: 00:00 transplant (200 mg) [place] tablet 00 :00 by mouth MD at [facility] bedtime. n To prevent Cancer [facility] Center topiramate 2020- No Status post 200mg Take 1 Univers (TOPAMAX) 06-04 stem cell tablet it y of 200 mg 00:00: 00:00 transplant (200 mg) [place] tablet 00 :00 by mouth MD at Anderso bedtime. n To prevent Cancer [facility] clobetasol 2020- No Graft Apply Univ ers (Temovate) 05-10 versus host topically ity of 0.05% 00:00: 00:00 disease to [place] ointment 00 :00 affected MD area(s) Anderso twice n daily. Cancer Center tacrolimus 2021- No Graft-versu Take 3 Univers (PROGRAF) 04-25 s-host capsules ity of 0.5 mg 00:00: 00:00 disease, (1.5 mg) [place] capsule 00 :00 not by mouth MD otherwise every [place] specified morning n AND 2 Cancer capsules Center (1 mg) every evening. tacrolimus 2021- No Graft-versu Take 3 Univers (PROGRAF) 04-25 s-host capsules ity of 0.5 mg 00:00: 00:00 disease, (1.5 mg) [place] capsule 00 :00 not by mouth MD otherwise every [place] specified morning n AND 2 Cancer capsules Center (1 mg) every evening. sulfamethox 2021- No Graft-versu 1{tbl} Take 1 Univers azole-trime 04-18 s-host tablet by ity of thoprim 00:00: 00:00 disease, mouth 3 [place] (BACTRIM 00 :00 not (three) MD FREITAS) 800 otherwise times a [place] rso mg-160 mg specified week n per tablet Friday, Cancer Friday Center and Friday. sulfamethox 2021- No Graft-versu 1{tbl} Take 1 Univers azole-trime 04-18 s-host tablet by ity of thoprim 00:00: 00:00 disease, mouth 3 [place] (BACTRIM 00 :00 not (three) MD FREITAS) 800 otherwise times a [place] rso mg-160 mg specified week n per tablet Friday, Cancer Friday Center and Friday. dicyclomine 2021- No Cramp 10mg Take 1 Un [facility] (BENTYL) 10 04-17 05-03 capsule ity of mg capsule 00:00: 00:00 (10 mg) by [place] 00 :00 mouth MD every 6 Anderso (six) n hours as Cancer needed Center (Cramps). dicyclomine 2021- No Cramp 10mg Take 1 Un [facility] (BENTYL) 10 04-17 05-03 capsule ity of mg capsule 00:00: 00:00 (10 mg) by [place] 00 :00 mouth MD every 6 Anderso (six) n hours as Cancer needed Center (Cramps). valACYclovi 2021- No Cellulitis, 500mg Take 1 Univers r (VALTREX) 04-17 not tablet ity o f 500 mg 00:00: 00:00 otherwise (500 mg) [place] tablet 00 :00 specified by mouth MD daily. [facility] valACYclovi 2021- No Cellulitis, 500mg Take 1 Univers r (VALTREX) 04-17 not tablet ity o f 500 mg 00:00: 00:00 otherwise (500 mg) [place] tablet 00 :00 specified by mouth MD daily. [facility] oxyCODONE 2021- No Abdominal 10mg Take 1 Univers (ROXICODONE 04-10 pain tablet (10 i ty of ) 10 mg 00:00: 00:00 mg) by [place] immediate 00 :00 mouth MD release every 6 [place] tablet (six) n hours as Cancer needed for Center severe pain. oxyCODONE 2021- No Abdominal 10mg Take 1 Univers (ROXICODONE 04-10 pain tablet (10 i ty of ) 10 mg 00:00: 00:00 mg) by [place] immediate 00 :00 mouth MD release every 6 [place] tablet (six) n hours as Cancer needed for Center severe pain. senna-docus 2021- No Acute 2{tbl} Take 2 Univers ate 03-08 myeloblasti tablets by i ty of (SENOKOT-S) 00:00: 00:00 c leukemia mouth [place] 8.6 mg-50 00 :00 not having twice MD mg tablet achieved daily. [facility] [facility] senna-docus 2021- No Acute 2{tbl} Take 2 Univers ate 03-08 myeloblasti tablets by i ty of (SENOKOT-S) 00:00: 00:00 c leukemia mouth [place] 8.6 mg-50 00 :00 not having twice MD mg tablet achieved daily. [place] rso remission n Cancer Center metoprolol 2021- No Stem cells 100mg Take 1 Univers succinate 03-08 transplant tablet i ty of (TOPROL XL) 00:00: 00:00 status (100 mg) [place] 100 mg 24 00 :00 by mouth MD hr tablet daily for Mario Alberto so blood n pressure. Cancer Hold if Center top number is less than 100 or heart rate is less than 60 metoprolol 2021- No Stem cells 100mg Take 1 [facility] succinate 03-08 transplant tablet i ty of (TOPROL XL) 00:00: 00:00 status (100 mg) [place] 100 mg 24 00 :00 by mouth MD hr tablet daily for Mario Alberto so blood n pressure. Cancer Hold if Center top number is less than 100 or heart rate is less than 60 aluminum-ma 2021- No Abdominal 15mL Take 15 mL Univers gnesium 03-08 05-03 pain by mouth ity of hydroxide-s 00:00: 00:00 every 4 [place] imethicone 00 :00 (four) (MAALOX hours as [place] PLUS) 200 needed for n mg-200 heartburn. Cancer mg-20 mg/5 Center mL suspension aluminum-ma 2021- No Abdominal 15mL Take 15 mL Univers gnesium 03-08 05-03 pain by mouth ity of hydroxide-s 00:00: 00:00 every 4 [place] imethicone 00 :00 (four) (MAALOX hours as [place] PLUS) 200 needed for n mg-200 heartburn. Cancer mg-20 mg/5 Center mL suspension levothyroxi 2021- No Status post 25ug Take 1 Univers ne 03-08 0323 stem cell tablet (25 ity of (SYNTHROID, 00:00: 00:00 transplant mcg) by [place] LEVOTHROID) 00 :00 mouth MD 25 mcg daily. [place] tablet n Cancer [place] levothyroxi 2021-0 2022- No Status post 25ug Take 1 Univers ne 6-17 03-23 stem cell tablet (25 ity of (SYNTHROID, 00:00: 00:00 transplant mcg) by [place] LEVOTHROID) 00 :00 mouth MD 25 mcg daily. [place] tablet n Cancer Center gabapentin Yes 600mg Take 600 [facility] (Neurontin) 4-08 mg by [facility] 300 MG 00:00: mouth. capsule 00 fluticasone Yes 1{puff} Inhale 1 Univers -vilanterol 7-15 Puff ity of (BREO 15:52: daily. [place] ELLIPTA) 35 Medical 100-25 Branch mcg/dose DsDv azelastine- Yes 1{spray Use 1 Un sarah fluticasone 7-15 } [place] in ity of (DYMISTA) 15:52: each [place] 137-50 35 nostril 2 Medical mcg/spray (two) Branch [place] times daily as needed. metoprolol Yes 100mg Take 100 Un [place] tartrate 7-15 mg by ity of (LOPRESSOR) 15:52: mouth 2 [place] as 100 mg 35 (two) Medical tablet times Branch daily. hydrochloro Yes 25mg Take 25 mg Univers thiazide 7-15 by mouth ity of (ESIDRIX) 15:52: daily. [place] 25 mg 35 Medical tablet Branch POLYETHYLEN Yes 1{scoop Take 1 U nivers E GLYCOL 7-15 } scoop by ity of 3350 15:52: mouth [place] (MIRALAX 35 daily. Medical ORAL) Branch BACLOFEN Yes by Univers INTRATHECAL 7-15 Intratheca it y of 15:52: l route. [place] 35 Indication Medical s: Pain Branch Pump in place amitriptyli Yes 75mg Take 75 mg Univers ne (ELAVIL) 7-15 by mouth ity of 75 mg 15:52: at [place] tablet 35 bedtime. Medical Branch SIMVASTATIN Yes 100mg Take 100 U nivers ORAL 7-15 mg by ity of 15:52: mouth [place] 35 daily. Medical Branch lurasidone Yes 60mg Take 60 mg U nivers (LATUDA) 60 7-15 by mouth ity of mg Tab 15:52: daily. [place] [address] Medical Branch topiramate Yes 50mg Take 50 mg U nivers (TOPAMAX) 7-15 by mouth 2 ity of 50 mg 15:52: (two) [place] tablet 35 times Medical daily. Branch lisinopril- 2018- Yes 1{tbl} Take 1 Tab Univers hydrochloro 7-15 by mouth ity of thiazide 15:52: every [place] (PRINZIDE,Z 35 evening. Medi candy ESTORETIC) Branch 10-12.5 mg per tablet desvenlafax Yes 100mg Take 100 U nivers ine 7-15 mg by ity of succinate 15:52: mouth [place] (PRISTIQ) 35 daily. Medical 100 mg 24 Branch hr tablet Dexlansopra Yes 60mg Take 60 mg Univers zole 7-15 by mouth ity of (DEXILANT) 15:52: daily. [place] 60 mg CpDM 35 Medical Branch valACYclovi Yes Univer s r 500 mg 7-07 ity of tablet 00:00: [place] [facility] NOXAFIL 100 0 Yes Univer s mg tablet 6-24 ity of 00:00: [place] 00 Medical Branch TRINTELLIX 0 Yes TAKE 1 Unive rs 20 mg Tab 5-29 TABLET BY ity o f 00:00: MOUTH [place] 00 EVERY DAY Medical Branch DIRECTED LINZESS 290 Yes TAKE 1 Univ ers mcg Cap 4-18 CAPSULE BY ity of 00:00: MOUTH [place] 00 EVERY DAY Medical Branch levoFLOXaci Yes 500mg Take 500 U nivers n 500 mg 4-12 mg by ity of tablet 00:00: mouth. [place] 00 Medical Branch metFORMIN 2017-09 Yes 1mg Q.5D Take 1 mg Met hodi (GLUCOPHAGE 2-[address] ) 1,000 mg 16:21: (two) Hospit a tablet 58 times a l day. simvastatin 2017-09 Yes 10mg QD Take 10 mg Methodi (ZOCOR) 20 2-[address] MG tablet 16:21: nightly. Hosp andrea 58 l lurasidone 2017-09 Yes 60mg QD Take 60 mg M ethodi (LATUDA) 60 2-[address] mg tablet 16:21: daily. Hospit a 58 l desvenlafax 2017-09 Yes 100mg QD Take 100 M ethodi ine 2-[address] (PRISTIQ) 16:21: mouth Hospita 100 MG 24 58 daily. l hr tablet topiramate 2017-09 Yes 50mg Q.5D Take 50 mg M ethodi (TOPAMAX) 2-[address] 50 MG 16:21: (two) Hospita tablet 58 times a l day. metFORMIN 2017-09 Yes 1mg Q.5D Take 1 mg Met hodi (GLUCOPHAGE 2-[address] ) 1,000 mg 16:21: (two) Hospit a tablet 58 times a l day. simvastatin 2017-09 Yes 10mg QD Take 10 mg Methodi (ZOCOR) 20 2-[address] MG tablet 16:21: nightly. Hosp [place]rea 58 l lurasidone 2017-09 Yes 60mg QD Take 60 mg M ethodi (LATUDA) 60 2-[address] mg tablet 16:21: daily. Hospit a 58 l desvenlafax 2017-09 Yes 100mg QD Take 100 M ethodi ine 2-[address] (PRISTIQ) 16:21: mouth Hospita 100 MG 24 58 daily. l hr tablet topiramate 2017-09 Yes 50mg Q.5D Take 50 mg M ethodi (TOPAMAX) 2-[address] 50 MG 16:21: (two) Hospita tablet 58 times a l day. metoprolol 2017-09 Yes 100mg QD Take 100 Me thodi succinate 2-[address] XL 16:21: mouth Hospita (TOPROL-XL) 58 daily. l 100 mg 24 hr tablet esomeprazol 2017-09 Yes 40mg QD Take 40 mg Methodi e (NexIUM) 2-[address] 40 MG 16:21: daily Hospita capsule 58 before l breakfast. ranitidine 2017-09 Yes 150mg QD Take 150 Me thodi (ZANTAC) 2-[address] 150 MG 16:21: mouth Hospita tablet 58 nightly. l umeclidiniu 2017-09 Yes 1{puff} QD Inhale 1 Methodi m 2-[address] brm/vilante 16:21: daily. Hosp andrea rol tr 58 l (ANORO ELLIPTA INHL) polyethylen 2017-09 Yes 17g QD Take 17 g M ethodi e glycol 2-[address] (MIRALAX) 16:21: daily. Hospit a 17 gram 58 l packet metoprolol 2017-09 Yes 100mg QD Take 100 Me thodi succinate 2-[address] XL 16:21: mouth Hospita (TOPROL-XL) 58 daily. l 100 mg 24 hr tablet esomeprazol 2017-09 Yes 40mg QD Take 40 mg Methodi e (NexIUM) 2-[address] 40 MG 16:21: daily Hospita capsule 58 before l breakfast. ranitidine 2017-09 Yes 150mg QD Take 150 Me thodi (ZANTAC) 2-[address] 150 MG 16:21: mouth Hospita tablet 58 nightly. l umeclidiniu 2017-09 Yes 1{puff} QD Inhale 1 Methodi m 2-[address] brm/vilante 16:21: daily. Hosp andrea rol tr 58 l (ANORO ELLIPTA INHL) polyethylen 2017-09 Yes 17g QD Take 17 g M ethodi e glycol 2-[address] (MIRALAX) 16:21: daily. Hospit a 17 gram 58 l packet lisinopril Yes 20mg QD Take 1 Metho di (PRINIVIL,Z 8-02 tablet (20 st ESTRIL) 20 00:00: mg total) Ho spita mg tablet 00 by mouth l nightly for 30 days. lisinopril Yes 20mg QD Take 1 Metho di (PRINIVIL,Z 8-02 tablet (20 st ESTRIL) 20 00:00: mg total) Ho spita mg tablet 00 by mouth l nightly for 30 days. metFORMIN Yes metformin Uni vers 1,000 mg -16 1,000 mg ity of tablet 00:00: tablet TK [place] 00 1 T PO BID Medical Branch acetaminoph 2016-09 Yes Notes: Hira lai en-10 mg/mL 0-27 Infuse l INTRAVENOUS 17:17: over 15 Her arrednodo solution 00 minutes Do not exceed 4gm/day of acetaminop hen MEDICATION WASTE Product Size: 1000 mg Product Wasted: ___ mg Lactated 2016-09 No 1,000 mL, Hira lai [place] 0-27 Rate: 125 l 1,000 mL 17:17: ml/hr, [place] 00 Infuse over: 8 hr, Route: IV, Dosing Weight 112.784 kg, Total Volume: 1,000, Start date: 07/18/17 12:17:00 CDT, Duration: 30 day, Stop date: 08/17/17 12:16:00 SPA CONCIERGE ketOROLAC 2016-09 Yes 4 days Memor ia 15 mg/mL 0- l injectable 17:17: MEDICATION H ermann solution WASTE Product Size: 30 mg Product Wasted: ___ mg hydromorpho 2016-09 No Notes: [place] ne 0-27 (Same as: l 17:17: Dilaudid) [place] 00 promethazin 2016-09 No Notes: Do M emoria e 0 not give l 17:17: IV push. [place] (Same as: Phenergan) ondansetron 2016-09 No Notes: [place] la[place] 0-27 (Same as: l 17:17: Zofran) [place] 00 MEDICATION WASTE Product Size: 4 mg Product Wasted: ___ mg acetaminoph 2016-09 No Notes: Do M emoria en-hydrocod 0 not exceed l one 325 17:17: 4gm/day of Herm lin mg-10 mg 00 acetaminop oral tablet hen. (Same as: Velva 325/10) Saline 2016-09 No Notes: Memoria Flush 0.9% 0-27 preservati l 15:42: ve free. [place] 00 Lactated 2016-09 No 1,000 mL, [place]ira lai Ringers 0-27 Rate: 125 l 1,000 mL 15:42: ml/hr, [place] 00 Infuse over: 8 hr, Route: IV, Dosing Weight 112.727 kg, Total Volume: 1,000, Start date: 07/18/17 10:42:00 CDT, Duration: 30 day, Stop date: 08/17/17 10:41:00 SPA CONCIERGE Hydromorpho No Notes: [place]i ne 9-15 Same as l 16:27: Dilaudid [place] 00 Ondansetron No Notes: [place] lai 9-15 (Same as: l 16:27: Zofran) [place] 00 MEDICATION WASTE Product Size: 4 mg Product Wasted: ___ mg Promethazin No Notes: Do Ministerio emoria e 06-06 not give l 16:27: IV push. [place] (Same as: Phenergan) Lactated No 1,000 mL, [place] lai [place] 15 Rate: 125 l 1,000 mL 16:27: ml/hr, [place] 00 Infuse over: 8 hr, Route: IV, Dosing Weight 113.636 kg, Total Volume: 1,000, Start date: 06/06/17 11:27:00 CDT, Duration: 30 day, Stop date: 07/06/17 11:26:00 CDT Acetaminoph No Notes: Do Ministerio emoria en 325 MG / 06-06 not exceed l Hydrocodone 16:27: 4gm/day of [place] Bitartrate 00 acetaminop 10 MG Oral hen. (Same Tablet as: Velva 325/10) Lactated No 1,000 mL, [place]ira lai [place] 06-06 Rate: 125 l 1,000 mL 15:04: ml/hr, [place] Infuse over: 8 hr, Route: IV, Dosing Weight 113.636 kg, Total Volume: 1,000, Start date: 06/06/17 10:04:00 CDT, Duration: 30 day, Stop date: 07/06/17 10:03:00 CDT Promethazin No Notes: Do Ministerio emoria e 04-18 not give l 14:46: IV push. [place] 00 (Same as: Phenergan) Ondansetron No Notes: [place] lai 04-18 (Same as: l 14:46: Zofran) MEDICATION WASTE Product Size: 4 mg Product Wasted: ___ mg Hydromorpho No Notes: [place] lai ne 04-18 Same as l 14:46: Dilaudid [place] 00 Acetaminoph No Notes: Do M emoria en 325 MG / 04-18 not exceed l Hydrocodone 14:46: 4gm/day of [place] Bitartrate 00 acetaminop 10 MG Oral hen. (Same Tablet as: Velva 325/10) Lactated No 1,000 mL, [place] la[place] 04-18 Rate: 125 l 1,000 mL 14:46: ml/hr, [place] 00 Infuse over: 8 hr, Route: IV, Dosing Weight 118.182 kg, Total Volume: 1,000, Start date: 04/18/17 9:46:00 CDT, Duration: 30 day, Stop date: 05/18/17 9:45:00 CDT Lactated 2016-0 No 1,000 mL, [place]ira lai [place] 04-18 Rate: 125 l 1,000 mL 13:53: ml/hr, [place] 00 Infuse over: 8 hr, Route: IV, Dosing Weight 118.182 kg, Total Volume: 1,000, Start date: 04/18/17 8:53:00 CDT, Duration: 30 day, Stop date: 05/18/17 8:52:00 CDT Lactated 2016-0 No 1,000 mL, [place] lai [place] 03-28 Rate: 125 l 1,000 mL 15:52: ml/hr, [place] 00 Infuse over: 8 hr, Route: IV, Dosing Weight 118.636 kg, Total Volume: 1,000, Start date: 03/28/17 10:52:00 CDT, Duration: 30 day, Stop date: 04/27/17 10:51:00 CDT Promethazin No Notes: Do M emoria e 03-28 not give l 15:52: IV push. [place] (Same as: Phenergan) Ondansetron No Notes: Hira lai 03-28 (Same as: l 15:52: Zofran) [place] 00 MEDICATION WASTE Product Size: 4 mg Product Wasted: ___ mg Hydromorpho No Notes: [place] lai ne 03-28 Same as l 15:52: Dilaudid [place] 00 Acetaminoph No Notes: Do M emoria en 325 MG / 03-28 not exceed l Hydrocodone 15:52: 4gm/day of [place] Bitartrate 00 acetaminop 10 MG Oral hen. (Same Tablet as: Velva 325/10) Ondansetron No Notes: Hira lai 03-28 (Same as: l 15:38: Zofran) [place] 00 MEDICATION WASTE Product Size: 4 mg Product Wasted: ___ mg Naloxone No Notes: Memoria 03-28 Same as l 15:38: Narcan Flumazenil No Notes: Memor ia 03-28 (Same as: l 15:38: Romazicon) Lactated No 1,000 mL, Hira lai Ringers 03-28 Rate: 125 l 1,000 mL 14:42: ml/hr, Infuse over: 8 hr, Route: IV, Dosing Weight 118.636 kg, Total Volume: 1,000, Start date: 03/28/17 9:42:00 CDT, Duration: 30 day, Stop date: 04/27/17 9:41:00 CDT metoprolol Yes 100 mg = 1 M emoria 100 mg oral 7-06 tab, PO, l tablet, 16:19: Daily, # Asif n extended 00 30 tab, 0 release Refill(s) lisinopril Yes 10 mg = 1 Me moria 10 mg oral 7-06 tab, PO, l tablet 16:19: Daily, # Lamont 00 30 tab, 0 Refill(s) topiramate Yes 50 mg = 1 Me moria 50 MG Oral 7-06 tab, PO, l Tablet 16:19: BID, # 60 Asif n [Topamax] 00 tab, 0 Refill(s) Lurasidone 2017 Yes 60 mg = 1 Me moria Hydrochlori 7-06 tab, PO, l de 60 MG 16:18: Daily, 0 Tri nn Oral Tablet 00 Refill(s) [Latuda] Deplin 15 2017 Yes 15 mg = 1 Mem oria mg oral 7-06 cap, PO, l capsule 16:18: Daily, 0 Asif n 00 Refill(s) Simvastatin Yes 10 mg = 1 M emoria 10 MG Oral 7-06 tab, PO, l Tablet 16:18: Bedtime, # Tri nn [Zocor] 00 30 tab, 0 Refill(s) Furosemide Yes 20 mg = 1 Me moria 20 MG Oral 7-06 tab, PO, l Tablet 16:18: Daily, # Lamont [Lasix] 00 30 tab, 0 Refill(s) 24 HR Yes 100 mg = 1 Lito a Desvenlafax -06 tab, PO, l ine 100 MG 16:18: Daily, # Her arredondo Extended 00 30 tab, 0 Release Refill(s) Tablet [Pristiq] Metformin Yes 500 mg = 1 Me moria hydrochlori 03-27 tab, PO, l de 500 MG 16:17: BID-Meals, He rmann Oral Tablet # 30 tab, 0 Refill(s) amitriptyli Yes 75 mg = 1 M emoria ne 75 mg 03-27 tab, PO, l oral tablet 16:17: Bedtime, # [place] 00 30 tab, 0 Refill(s) acetaminoph Yes 1{tbl} Take 1 Tab Univers en-codeine 6-25 by mouth ity o f (TYLENOL 00:00: every 4 [place] #3) 300-30 00 (four) Medical mg tablet hours as Branch needed for Pain (scale 4-6) (1-2 po q 4-6 hours prn pain). Immunizations Ordered Immunization Filled Immunization Date Status Commen ts Source Name Name Influenza 2022-07-16 Completed [facility] Quadrivalent [facility] 00:00:00 [facility] Influenza 2021-08-21 Completed [facility] Quadrivalent [facility] 00:00:00 [facility] Influenza 2021-08-21 Completed [facility] Quadrivalent [facility] 00:00:00 [facility] Pneumococcal 2021-05-10 Completed [place] [facility] Polysaccharide 00:00:00 [facility] Pneumococcal 2021-05-10 Completed [place] [facility] Polysaccharide 00:00:00 [facility] Sofia SARS-CoV-2 2020-12-01 Completed Univer sity of Vaccination 00:00:00 [facility] Sofia SARS-CoV-2 2020-12-01 Completed Univer sity of Vaccination 00:00:00 [facility] DTaP / IPV 2020-10-31 Completed University 00:00:00 [facility] Hib (PRP-OMP) 2020-10-31 Completed University of 00:00:00 [facility] Hepatitis A 2020-10-31 Completed University of 00:00:00 [facility] Hepatitis B 2020-10-31 Completed University of 00:00:00 [facility] Pneumococcal 2020-10-31 Completed University o f Conjugate 13-Valent 00:00:00 [facility] DTaP / IPV 2020-10-31 Completed University of 00:00:00 [facility] Hib (PRP-OMP) 2020-10-31 Completed University of 00:00:00 [facility] Hepatitis A 2020-10-31 Completed University of 00:00:00 [facility] Hepatitis B 2020-10-31 Completed University of 00:00:00 [facility] Pneumococcal 2020-10-31 Completed University o f Conjugate 13-Valent 00:00:00 [facility] Influenza, 2020-06-29 Completed University of Quadrivalent 00:00:00 [facility] Influenza, 2020-06-29 Completed University of Unspecified 00:00:00 [facility] Influenza, 2020-06-29 Completed University of Quadrivalent 00:00:00 [facility] Influenza, 2020-06-29 Completed University of Unspecified 00:00:00 [facility] DTaP / IPV 2020-06-06 Completed University of 00:00:00 [facility] Hib (PRP-OMP) 2020-06-06 Completed University of 00:00:00 [facility] Hepatitis B 2020-06-06 Completed University of 00:00:00 [facility] Pneumococcal 2020-06-06 Completed University o f Conjugate 13-Valent 00:00:00 [facility] DTaP / IPV 2020-06-06 Completed University of 00:00:00 [facility] Hib (PRP-OMP) 2020-06-06 Completed University of 00:00:00 [facility] Hepatitis B 2020-06-06 Completed University of 00:00:00 [facility] Pneumococcal 2020-06-06 Completed University o f Conjugate 13-Valent 00:00:00 [facility] DTaP / IPV 2020-01-21 Completed University of 00:00:00 [facility] Hib (PRP-OMP) 2020-01-21 Completed University of 00:00:00 [facility] Hepatitis A 2020-01-21 Completed University of 00:00:00 [facility] Hepatitis B 2020-01-21 Completed University of 00:00:00 [facility] Pneumococcal 2020-01-21 Completed University o f Conjugate 13-Valent 00:00:00 [facility] DTaP / IPV 2020-01-21 Completed University of 00:00:00 [facility] Hib (PRP-OMP) 2020-01-21 Completed University of 00:00:00 [facility] Hepatitis A 2020-01-21 Completed University of 00:00:00 [facility] Hepatitis B 2020-01-21 Completed University of 00:00:00 [facility] Pneumococcal 2020-01-21 Completed University o f Conjugate 13-Valent 00:00:00 [facility] Influenza, 2018-08-05 Completed University of Quadrivalent 00:00:00 [facility] Influenza, 2018-08-05 Completed University of Quadrivalent 00:00:00 [facility] Vital Signs Vital Name Observation Time Observation Value Comments Source Body height 2022-06-19 15:26:00 167.6 cm [facility] Body weight 2022-06-19 15:26:00 104.327 kg [facility] BMI 2022-06-19 15:26:00 37.12 kg/m2 [facility] Systolic blood 2021-10-22 14:37:00 120 mm[Hg] Univer sity of pressure [facility] Diastolic blood 2021-10-22 14:37:00 65 mm[Hg] Unive rsity of pressure [facility] Heart rate 2021-10-22 14:36:00 67 /min Universi ty [facility] Oxygen saturation in 2021-10-22 14:36:00 97 /min [facility] Arterial blood by [facility] Pulse oximetry Branch Respiratory rate 2021-10-22 14:34:00 27 /[facility] temperature 2021-10-22 14:10:00 36.44 [place] [facility] [place] [facility] Body height 2021-10-19 20:15:00 167.6 cm [facility] [place] [facility] Body weight 2021-10-19 20:15:00 108.863 kg [facility] [place] [facility] BMI 2021-10-19 20:15:00 38.74 kg/m2 Universi ty of [facility] Systolic blood 2021-10-22 14:37:00 120 mm[Hg] Univer sity of pressure [facility] Diastolic blood 2021-10-22 14:37:00 65 mm[Hg] Unive rsity of pressure [facility] Heart rate 2021-10-22 14:36:00 67 /min Universi ty of [facility] Oxygen saturation in 2021-10-22 14:36:00 97 /min [facility] Arterial blood by [facility] Pulse oximetry Branch Respiratory rate 2021-10-22 14:34:00 27 /min Univ ersity of [facility] Body temperature 2021-10-22 14:10:00 36.44 Kennedi [facility] [place] [facility] Body height 2021-10-19 20:15:00 167.6 cm [facility] [place] [facility] Body weight 2021-10-19 20:15:00 108.863 kg Universi ty of [facility] BMI 2021-10-19 20:15:00 38.74 kg/m2 Universi ty of [facility] Respiratory rate 2021-10-22 14:03:00 12 /min Univ ersity of [facility] WEIGHT 2020-03-30 00:00:00 72.2 kg WEIGHT 2020-03-16 00:00:00 69.3 kg Systolic blood 2022-08-27 19:24:44 115 mm[Hg] Univer sittej of [facility] Diastolic blood 2022-08-27 19:24:44 65 mm[Hg] Unive rsity of pressure [facility] Heart rate 2022-08-27 19:24:44 79 /min [facility]i [facility] Body temperature 2022-08-27 19:24:44 36.72 Kenn[place] Univ ersity [facility] Respiratory rate 2022-08-27 19:24:44 18 /min Univ ersity [facility] Oxygen saturation in 2022-08-27 19:24:44 96 /min University of Arterial blood by [facility] Pulse oximetry [facility] Body weight 2022-08-27 19:15:00 105 kg [facility]i [facility] BMI 2022-08-27 19:15:00 39.73 kg/m2 [facility] [place] [facility] Body height 2022-08-08 16:35:00 162.6 cm [facility] [place] [facility] Systolic blood 2022-05-30 20:15:00 128 mm[Hg] Univer [facility]ity of pressure [place] [facility] Diastolic blood 2022-05-30 20:15:00 72 mm[Hg] Unive rsity of [facility] Heart rate 2022-05-30 20:15:00 75 /min [facility] [place] [facility] Body temperature 2022-05-30 20:15:00 36.61 Kennedi Univ ersity [facility] Respiratory rate 2022-05-30 20:15:00 18 /min Univ [facility] [place] [facility] Body weight 2022-05-30 20:15:00 106.7 kg [facility]i [facility] BMI 2022-05-30 20:15:00 37.80 kg/m2 [facility] [place] [facility] Oxygen saturation in 2022-05-30 20:15:00 98 /min University of Arterial blood by [facility] Pulse oximetry [facility] Body height 2022-02-21 19:55:00 168 cm [facility]i [facility] Systolic (mm Hg) 2017-07-18 17:40:00 Hira Miguel Diastolic (mm Hg) 2017-07-18 17:40:00 Jovany Miguel Respitory Rate 2017-07-18 17:40:00 Lito Pérez BMI Calculated 2017-07-18 17:27:00 Lito Pérez Weight 2017-07-18 17:27:00 [facility] [place] Height 2017-07-18 17:27:00 167.6 cm [facility] [place] Respitory Rate 2017-07-18 17:25:00 [facility] [place] Systolic (mm Hg) 2017-07-18 17:25:00 Hira rial [place] Diastolic (mm Hg) 2017-07-18 17:25:00 Mem orial [place] Temperature Oral (F) 2017-07-18 17:10:00 97.6 F [facility] Respitory Rate 2017-07-18 17:10:00 Memori al [place] Systolic (mm Hg) 2017-07-18 17:10:00 Hira rial [place] Diastolic (mm Hg) 2017-07-18 17:10:00 Mem orial [place] Temperature Oral (F) 2017-07-18 15:54:00 98.2 F [facility] [place] Systolic (mm Hg) 2017-06-06 16:55:00 Hira rial [place] Diastolic (mm Hg) 2017-06-06 16:55:00 Mem orial [place] Respitory Rate 2017-06-06 16:55:00 Memori [facility] [place] Respitory Rate 2017-06-06 16:41:00 Memori al [place] Systolic (mm Hg) 2017-06-06 16:41:00 Hira rial [place] Diastolic (mm Hg) 2017-06-06 16:41:00 Mem orial [place] Respitory Rate 2017-06-06 16:26:00 Memori al [place] Systolic (mm Hg) 2017-06-06 16:26:00 Hira rial [place] Diastolic (mm Hg) 2017-06-06 16:26:00 Mem orial [place] Temperature Oral (F) 2017-06-06 15:23:00 97.8 F [facility] [place] BMI Calculated 2017-06-02 18:45:00 Memori al [place] Height 2017-06-02 18:45:00 167.64 cm [facility] [place] Weight 2017-06-02 18:45:00 [facility] [place] Systolic (mm Hg) 2017-04-18 15:16:00 Hira rial [place] Diastolic (mm Hg) 2017-04-18 15:16:00 Mem orial [place] Respitory Rate 2017-04-18 15:16:00 Memori al [place] Systolic (mm Hg) 2017-04-18 15:01:00 Hira rial [place] Diastolic (mm Hg) 2017-04-18 15:01:00 Mem orial [place] Respitory Rate 2017-04-18 15:01:00 Memori al [place] Systolic (mm Hg) 2017-04-18 14:46:00 Hira rial [place] Diastolic (mm Hg) 2017-04-18 14:46:00 Mem orial [place] Respitory Rate 2017-04-18 14:46:00 Memori al [place] BMI Calculated 2017-04-18 14:07:00 Memori al [place] Height 2017-04-18 14:07:00 167.64 cm [facility] [place] Weight 2017-04-18 14:07:00 [facility] [place] BMI Calculated 2017-04-14 16:31:00 Memori al [place] Weight 2017-04-14 16:31:00 [facility] [place] Height 2017-04-14 16:31:00 167.64 cm [facility] [place] Respitory Rate 2017-03-28 16:19:00 [facility]ori [facility] [place] Systolic (mm Hg) 2017-03-28 16:19:00 Hira rial [place] Diastolic (mm Hg) 2017-03-28 16:19:00 Mem orial [place] Respitory Rate 2017-03-28 16:04:00 Memori al [place] Systolic (mm Hg) 2017-03-28 16:04:00 Hira rial [place] Diastolic (mm Hg) 2017-03-28 16:04:00 Mem orial [place] Respitory Rate 2017-03-28 15:49:00 Memori al [place] Systolic (mm Hg) 2017-03-28 15:49:00 Hira rial [place] Diastolic (mm Hg) 2017-03-28 15:49:00 Mem orial [place] Heart Rate 2017-03-28 14:51:00 [facility] BMI Calculated 2017-03-28 14:37:00 Memori al [place] Weight 2017-03-28 14:37:00 [facility] [place] Height 2017-03-27 16:04:00 167.64 cm [facility] [place] Procedures Procedure Date / Time Performing Clinician Source Performed XR HIP 3 OR 4 VW BILATERAL 2022-08-27 19:18:29 Juan Machado [facility] W PELVIS Huma MD Horowitz [facility] COMPLETE BLOOD COUNT W/ 2022-08-27 17:53:00 Sadi, [facility] DIFFERENTIAL [facility] TYPE AND SCREEN 2022-08-27 17:53:00 Van Wolf [facility] COMPREHENSIVE METABOLIC 2022-08-27 17:53:00 Van Wolf [facility] PANEL [facility] PHOSPHORUS LEVEL 2022-08-27 17:53:00 Van Wolf [facility] URIC ACID 2022-08-27 17:53:00 Van Wolf [facility] LACTATE DEHYDROGENASE 2022-08-27 17:53:[address] [facility] MAGNESI[facility] L[facility] 2022-08-27 17:53:00 Van Wolf [facility] TACROLIMUS LEVEL 2022-08-27 17:53:00 Van Wolf [facility] CMV QUANT PCR 2022-08-27 17:53:00 Van Wolf [facility] Results CBC 2022-08-27 17:53:00 Van Wolf [facility] MANUAL DIFFERENTIAL 2022-08-27 17:53:00 Van Wolf [facility] GLUCOSE LEVEL 2022-08-27 17:53:00 Van Wolf [facility] BLOOD UREA NITROGEN 2022-08-27 17:53:00 Van Wolf [facility] ELECTROLYTE PANEL 2022-08-27 17:53:00 aVn Wolf [facility] SERUM CREATININE 2022-08-27 17:53:00 Van Wolf [facility] .GLOMERULAR FILTRATION 2022-08-27 17:53:00 Van Wolf [facility] RATE [facility] CALCIUM LEVEL TOTAL 2022-08-27 17:53:00 Van Wolf [facility] ALBUMIN LEVEL 2022-08-27 17:53:00 Van Wolf [facility] ALKALINE PHOSPHATASE 2022-08-27 17:53:[address] [facility] ALANINE AMINOTRANSFERASE 2022-08-27 17:53:00 Van Wolf [facility] ASPARTATE AMINOTRANSFERASE 2022-08-27 17:53:00 Van [facility] TOTAL PROTEIN 2022-08-27 17:53:00 Van Wolf [facility] FRACTIONATED BILIRUBIN 2022-08-27 17:53:00 [facility] ABORH 2022-08-27 17:53:00 Van Wolf [facility] ANTIBODY SCREEN 2022-08-27 17:53:00 Van Wolf [facility] CLOT EXPIRATION DATE 2022-08-27 17:53:[address] [facility] TMP INTERPRETATION 2022-08-27 17:53:00 Van Wolf [facility] ANTIBODY SCREEN NEGATIVE MD [facility] CMV QUANT PCR 2022-08-08 17:20:00 Callie Ellison [facility] Bing [facility] COMPLETE BLOOD COUNT W/ 2022-08-08 17:20:00 Callie Ellison [facility] DIFFERENTIAL Bing [facility] COMPREHENSIVE METABOLIC 2022-08-08 17:20:00 Callie Ellison [facility] PANEL tarsha [facility] LACTATE DEHYDROGENASE 2022-08-08 17:20:00 Callie Ellison [facility] Bing [facility] TACROLIMUS LEVEL 2022-08-08 17:20:00 Callie Ellison [facility] Bing [facility] PHOSPHORUS LEVEL 2022-08-08 17:20:00 [facility] MAGNESIUM LEVEL 2022-08-08 17:20:00 [facility] Results CBC 2022-08-08 17:20:00 Van Wolf [facility] MANUAL DIFFERENTIAL 2022-08-08 17:20:00 Van Wolf [facility] GLUCOSE LEVEL 2022-08-08 17:20:00 Van Wolf [facility] BLOOD UREA NITROGEN 2022-08-08 17:20:00 Van Wolf [facility] ELECTROLYTE PANEL 2022-08-08 17:20:00 Van Wolf [facility] SERUM CREATININE 2022-08-08 17:20:00 Van Wolf [facility] .GLOMERULAR FILTRATION 2022-08-08 17:20:00 [facility] CALCIUM LEVEL TOTAL 2022-08-08 17:20:00 Van Wolf [facility] ALBUMIN LEVEL 2022-08-08 17:20:00 Van Wolf [facility] ALKALINE PHOSPHATASE 2022-08-08 17:20:[address] [facility] ALANINE AMINOTRANSFERASE 2022-08-08 17:20:00 Van Wolf [facility] ASPARTATE AMINOTRANSFERASE 2022-08-08 17:20:00 Van Wolf [facility] TOTAL PROTEIN 2022-08-08 17:20:00 Van Wolf [facility] FRACTIONATED BILIRUBIN 2022-08-08 17:20:00 [facility] NM BONE MINERAL DENSITY 2022-08-08 16:53:29 Callie Ellison [facility] APPENDICULAR FOREARM ONLY Bing JAIME [facility] COMPLETE BLOOD COUNT W/ 2022-07-30 15:48:00 Juan Machado [facility] DIFFERENTIAL Huma MD [facility] TYPE AND SCREEN 2022-07-30 15:48:00 Deven [facility] Huma JAIME [facility] COMPREHENSIVE METABOLIC 2022-07-30 15:48:00 Deven [facility] PANEL Huma JAIME [facility] PHOSPHORUS LEVEL 2022-07-30 15:48:00 Deven [facility] Huma JAIME [facility] URIC ACID 2022-07-30 15:48:00 Deven [facility] Huma JAIME [facility] LACTATE DEHYDROGENASE 2022-07-30 15:48:[address] [facility]uma JAIME [facility] MAGNESIUM LEVEL 2022-07-30 15:48:00 [facility] TACROLIMUS LEVEL 2022-07-30 15:48:00 [facility] CMV QUANT PCR 2022-07-30 15:48:00 Deven [facility] Huma JAIME [facility] Results CBC 2022-07-30 15:48:00 Deven [facility] Huma JAIME [facility] MANUAL DIFFERENTIAL 2022-07-30 15:48:00 [facility] Huma [facility] Center GLUCOSE LEVEL 2022-07-30 15:48:00 Deven [facility] Huma JAIME [facility] BLOOD UREA NITROGEN 2022-07-30 15:48:00 Deven [facility] Huma JAIME [facility] Center ELECTROLYTE PANEL 2022-07-30 15:48:00 [facility] SERUM CREATININE 2022-07-30 15:48:00 [facility] .GLOMERULAR FILTRATION 2022-07-30 15:48:00 [facility] CALCIUM LEVEL TOTAL 2022-07-30 15:48:00 [facility] ALBUMIN LEVEL 2022-07-30 15:48:00 Juan Machado [facility] ALKALINE PHOSPHATASE 2022-07-30 15:48:00 Juan Machado [facility] ALANINE AMINOTRANSFERASE 2022-07-30 15:48:00 Juan Machado [facility] ASPARTATE AMINOTRANSFERASE 2022-07-30 15:48:00 Juan Machado [facility] TOTAL PROTEIN 2022-07-30 15:48:[address] [facility]IME [facility] FRACTIONATED BILIRUBIN 2022-07-30 15:48:00 Juan Machado [facility] ABORH 2022-07-30 15:48:00 [facility] ANTIBODY SCREEN 2022-07-30 15:48:00 Juan Machado [facility] CLOT EXPIRATION DATE 2022-07-30 15:48:00 [facility] TMP INTERPRETATION 2022-07-30 15:48:00 Juan Machado [facility] ANTIBODY SCREEN NEGATIVE Huma [facility] COMPLETE BLOOD COUNT W/ 2022-07-25 19:31:00 Callie Ellison [facility] DIFFERENTIAL Bing JAIME [facility] COMPREHENSIVE METABOLIC 2022-07-25 19:31:00 Callie Ellison [facility] PANEL Bing JAIME [facility] LACTATE DEHYDROGENASE 2022-07-25 19:31:00 Callie Ellison [facility] MAGNESIUM LEVEL 2022-07-25 19:31:00 Callie Ellison [facility] PHOSPHORUS LEVEL 2022-07-25 19:31:00 Callie Ellison [facility] Results CBC 2022-07-25 19:31:00 Van Wolf [facility] MANUAL DIFFERENTIAL 2022-07-25 19:31:00 Van Wolf [facility] GLUCOSE LEVEL 2022-07-25 19:31:00 Van Wolf [facility] BLOOD UREA NITROGEN 2022-07-25 19:31:00 Van Wolf [facility] ELECTROLYTE PANEL 2022-07-25 19:31:00 Van Wolf [facility] SERUM CREATININE 2022-07-25 19:31:00 Van Wolf [facility] .GLOMERULAR FILTRATION 2022-07-25 19:31:00 [facility] RATE [facility] CALCIUM LEVEL TOTAL 2022-07-25 19:31:00 Van Wolf [facility] ALBUMIN LEVEL 2022-07-25 19:31:00 Van Wolf [facility] ALKALINE PHOSPHATASE 2022-07-25 19:31:[address] [facility] ALANINE AMINOTRANSFERASE 2022-07-25 19:31:00 Van Wolf Uni versity [facility] ASPARTATE AMINOTRANSFERASE 2022-07-25 19:31:00 Van Wolf [facility] TOTAL PROTEIN 2022-07-25 19:31:00 Van Wolf [facility] FRACTIONATED BILIRUBIN 2022-07-25 19:31:00 [facility] CMV QUANT PCR 2022-07-16 15:56:00 Callie Ellison [facility] Bing JAIME [facility] COMPLETE BLOOD COUNT W/ 2022-07-16 15:56:00 Callie Ellison [facility] DIFFERENTIAL Bing JAIME [facility] COMPREHENSIVE METABOLIC 2022-07-16 15:56:00 Callie Ellison [facility] PANEL Bing JAIME [facility] LACTATE DEHYDROGENASE 2022-07-16 15:56:00 Callie Ellison [facility] Bing JAIME [facility] TACROLIMUS LEVEL 2022-07-16 15:56:00 Callie Ellison [facility] Bing JAIME [facility] PROTHROMBIN TIME 2022-07-16 15:56:00 Callie Ellison [facility] Bing JAIME [facility] PHOSPHORUS LEVEL 2022-07-16 15:56:00 Callie [facility] Bing JAIME [facility] MAGNESIUM LEVEL 2022-07-16 15:56:00 Callie [facility] [employer] JA[employer] [facility] URIC ACID 2022-07-16 15:56:00 Callie Ell[facility] Bing JAIME [facility] HP CARMELO-ADDISON VIRUS 2022-07-16 15:56:00 [facility] ANALYSIS Bing JAIME And erstheresa Cancer COLLECTION, BLOOD Center VITAMIN D 25 HYDROXY LEVEL 2022-07-16 15:56:00 Callie Ellison [facility] [employer] JAIME [facility] THYROID STIMULATING 2022-07-16 15:56:00 Callie Ellison [facility] HORMONE Bing JAIME [facility] FREE THYROXINE 2022-07-16 15:56:00 Callie Ellison [facility] Bing JAIME [facility] LIPID PANEL 2022-07-16 15:56:00 Callie Ellison [facility] Results CBC 2022-07-16 15:56:00 Van Wolf [place] [facility] MANUAL DIFFERENTIAL 2022-07-16 15:56:00 Van Wolf [facility] GLUCOSE LEVEL 2022-07-16 15:56:00 Van Wolf [place] [facility] BLOOD UREA NITROGEN 2022-07-16 15:56:00 Van Wolf [facility] ELECTROLYTE PANEL 2022-07-16 15:56:00 Van Wolf [facility] SERUM CREATININE 2022-07-16 15:56:00 Van Wolf [facility] .GLOMERULAR FILTRATION 2022-07-16 15:56:00 Van Wolf [facility] CALCIUM LEVEL TOTAL 2022-07-16 15:56:00 Van Wolf [facility] ALBUMIN LEVEL 2022-07-16 15:56:00 Van Wolf [place] [facility] ALKALINE PHOSPHATASE 2022-07-16 15:56:[address] [facility] ALANINE AMINOTRANSFERASE 2022-07-16 15:56:00 Van Wolf [facility] ASPARTATE AMINOTRANSFERASE 2022-07-16 15:56:00 Van Wolf [facility] TOTAL PROTEIN 2022-07-16 15:56:00 Van Wolf [place] [facility] FRACTIONATED BILIRUBIN 2022-07-16 15:56:00 Van Wolf Unive [facility] HP CARMELO-ADDISON VIRUS 2022-07-16 15:56:00 Van Wolf [facility] QUANTITATIVE PCR ANALYSIS And erson Cancer INTERPRETATION AND REPORT Center ARC AIR OPERATOR VIDEOSTROBOSCOPY 2022-07-11 17:39:[address] [facility] ECHOCARDIOGRAM 2D COMPLETE 2022-06-20 19:16:06 Ibrahima Ibarra [facility] CONTRAST [facility] SPIROMETRY W/O DILATORS, 2022-05-30 20:05:23 Canelo Alexandre [facility] DLCO AND BODY [facility] PLETHSMOGRAPHIC LUNG Center VOLUMES COMPLETE BLOOD COUNT W/ 2022-05-28 17:58:00 Van Wolf [facility] DIFFERENTIAL [facility] TYPE AND SCREEN 2022-05-28 17:58:00 Van Wolf [facility] COMPREHENSIVE METABOLIC 2022-05-28 17:58:00 Van Wolf [facility] PANEL [facility] PHOSPHORUS LEVEL 2022-05-28 17:58:00 Van Wolf [facility] URIC ACID 2022-05-28 17:58:00 Van Wolf [facility] LACTATE DEHYDROGENASE 2022-05-28 17:58:00 Van Wolf [facility] MAGNESIUM LEVEL 2022-05-28 17:58:00 Van Wolf [facility] CMV QUANT PCR 2022-05-28 17:58:00 Van Wolf [facility] TACROLIMUS LEVEL 2022-05-28 17:58:00 Van Wolf [facility] Results CBC 2022-05-28 17:58:00 Van Wolf [facility] MANUAL DIFFERENTIAL 2022-05-28 17:58:00 [facility] GLUCOSE LEVEL 2022-05-28 17:58:00 Van Wolf [facility] BLOOD UREA NITROGEN 2022-05-28 17:58:00 Van Wolf [facility] ELECTROLYTE PANEL 2022-05-28 17:58:00 Van Wolf [facility] SERUM CREATININE 2022-05-28 17:58:00 Van Wolf [facility] .GLOMERULAR FILTRATION 2022-05-28 17:58:00 [facility] CALCIUM LEVEL TOTAL 2022-05-28 17:58:00 Van Wolf [facility] ALBUMIN LEVEL 2022-05-28 17:58:00 Van Wolf [facility] ALKALINE PHOSPHATASE 2022-05-28 17:58:[address] [facility] ALANINE AMINOTRANSFERASE 2022-05-28 17:58:00 Van Wolf Uni [facility] ASPARTATE AMINOTRANSFERASE 2022-05-28 17:58:00 Van Wolf [facility] TOTAL PROTEIN 2022-05-28 17:58:00 Van Wolf [facility] FRACTIONATED BILIRUBIN 2022-05-28 17:58:00 Van Wolf [facility] ABORH 2022-05-28 17:58:00 Van Wolf [facility] ANTIBODY SCREEN 2022-05-28 17:58:00 Van Wolf [facility] TMP INTERPRETATION 2022-05-28 17:58:00 Van Wolf [facility] ANTIBODY SCREEN NEGATIVE MD [facility] Cancer Center CLOT EXPIRATION DATE 2022-05-28 17:58:[address] [facility] EKG, 12-LEAD (SCHEDULED) 2022-05-24 00:00:[address] [facility] HHV6 QUANT, PLASMA 2022-03-14 17:18:00 Sandor [facility] ADENOVIRUS QUANTITATIVE, 2022-03-14 17:18:00 Lyndsay Patten [facility] PLASMA [facility] COMPLETE BLOOD COUNT W/ 2022-03-14 17:18:00 Sandor [facility] DIFFERENTIAL [facility] TYPE AND SCREEN 2022-03-14 17:18:00 Sandor [facility] COMPREHENSIVE METABOLIC 2022-03-14 17:18:00 Sandor [facility] PANEL [facility] PHOSPHORUS LEVEL 2022-03-14 17:18:00 Sandor [facility] URIC ACID 2022-03-14 17:18:00 Sandor [facility] LACTATE DEHYDROGENASE 2022-03-14 17:18:00 [facility] MAGNESIUM LEV[facility] 2022-03-14 17:18:00 Sandor [facility] HP MD CARMELO-ADDISON VIRUS 2022-03-14 17:18:00 Lyndsay Patten [facility] QUANTITATIVE PCR ANALYSIS And audrey Cancer COLLECTION, BLOOD Center CMV QUANT PCR 2022-03-14 17:18:00 Sandor [facility] TACROLIMUS LEVEL 2022-03-14 17:18:00 Sandor [facility] Results CBC 2022-03-14 17:18:00 Sandor [facility] MANUAL DIFFERENTIAL 2022-03-14 17:18:00 Sandor [facility] GLUCOSE LEVEL 2022-03-14 17:18:00 Sandor [facility] BLOOD UREA NITROGEN 2022-03-14 17:18:00 Sandor [facility] ELECTROLYTE PANEL 2022-03-14 17:18:00 Sandor [facility] SERUM CREATININE 2022-03-14 17:18:00 Sandor [facility] .GLOMERULAR FILTRATION 2022-03-14 17:18:00 Lyndsay Patten [facility] CALCIUM LEVEL TOTAL 2022-03-14 17:18:00 Sandor [facility] ALBUMIN LEVEL 2022-03-14 17:18:00 Sandor [facility] ALKALINE PHOSPHATASE 2022-03-14 17:18:00 Sandor [facility] ALANINE AMINOTRANSFERASE 2022-03-14 17:18:00 Sandor [facility] ASPARTATE AMINOTRANSFERASE 2022-03-14 17:18:00 Lyndsay [facility]atten [facility] TOTAL PROTEIN 2022-03-14 17:18:00 Sandor [facility] FRACTIONATED BILIRUBIN 2022-03-14 17:18:00 [facility]H 2022-03-14 17:18:00 Sandor [facility] ANTIBODY SCREEN 2022-03-14 17:18:00 Sandor [facility] HP CARMELO-ADDISON VIRUS 2022-03-14 17:18:00 [facility]IVE PCR ANALYSIS Cancer INTERPRETATION AND REPORT Center CLOT EXPIRATION DATE 2022-03-14 17:18:[address] [facility] TMP INTERPRETATION 2022-03-14 17:18:00 Sandor [facility] ANTIBODY SCREEN NEGATIVE MD [facility] SPIROMETRY W/O DILATORS, 2022-02-21 18:22:58 Marlen Little [facility] DLCO AND BODY [facility] er PLETHSMOGRAPHIC LUNG Center VOLUMES HHV6 QUANT, PLASMA 2022-02-21 17:25:00 [facility] AD[facility]US QUANTITATIVE, 2022-02-21 17:25:00 [facility]AS[facility] COMPLETE BLOOD COUNT W/ 2022-02-21 17:25:00 Sandor [facility] DIFFERENTIAL [facility] TYPE AND SCREEN 2022-02-21 17:25:00 Sandor [facility] COMPREHENSIVE METABOLIC 2022-02-21 17:25:00 Sandor [facility] PANEL [facility] PHOSPHORUS LEVEL 2022-02-21 17:25:00 Sandor [facility] URIC ACID 2022-02-21 17:25:00 Sandor [facility] LACTATE DEHYDROGENASE 2022-02-21 17:25:00 Sandor [facility] MAGNESIUM LEVEL 2022-02-21 17:25:00 Sandor [facility] HP MD CARMELO-ADDISON VIRUS 2022-02-21 17:25:00 [facility] QUANTITATIVE PCR ANALYSIS MD And [facility] Cancer COLLECTION, BLOOD Center CMV QUANT PCR 2022-02-21 17:25:00 Sandor [facility] TACROLIMUS LEVEL 2022-02-21 17:25:00 [facility] Results CBC 2022-02-21 17:25:00 Sandor [facility] MANUAL DIFFERENTIAL 2022-02-21 17:25:00 Sandor [facility] GLUCOSE LEVEL 2022-02-21 17:25:00 [facility] BLOOD UREA NITROGEN 2022-02-21 17:25:00 [facility] ELECTROLY[facility] PANEL 2022-02-21 17:25:00 [facility] SERUM CREATININE 2022-02-21 17:25:00 Sandor, [facility] .GLOMERULAR FILTRATION 2022-02-21 17:25:00 Lyndsay Patten [facility] RATE [facility] CALCIUM LEVEL TOTAL 2022-02-21 17:25:00 Lyndsay Patten [facility] ALBUMIN LEVEL 2022-02-21 17:25:00 Lyndsay Patten [facility] ALKALINE PHOSPHATASE 2022-02-21 17:25:[address] [facility] ALANINE AMINOTRANSFERASE 2022-02-21 17:25:00 Lyndsay Patten [facility] ASPARTATE AMINOTRANSFERASE 2022-02-21 17:25:00 Lyndsay [facility]atten [facility] TOTAL PROTEIN 2022-02-21 17:25:00 Lyndsay Patten [facility] FRACTIONATED BILIRUBIN 2022-02-21 17:25:00 Lyndsay Patten [facility] ABORH 2022-02-21 17:25:00 [facility] ANTIBODY SCREEN 2022-02-21 17:25:00 Sandor [facility] HP CARMELO-ADDISON VIRUS 2022-02-21 17:25:00 Lyndsay Patten [facility] QUANTITATIVE PCR ANALYSIS Cancer INTERPRETATION AND REPORT Center TMP INTERPRETATION 2022-02-21 17:25:00 Lyndsay Patten [facility] ANTIBODY SCREEN NEGATIVE MD [facility] CLOT EXPIRATION DATE 2022-02-21 17:25:[address] [facility] GENERAL LABORATORY ADD ON 2022-01-24 19:59:00 [facility] COMPLETE BLOOD COUNT W/ 2022-01-24 18:02:00 Marti Mace [facility] DIFFERENTIAL [facility] TYPE AND SCREEN 2022-01-24 18:02:00 Marti Mace [facility] COMPREHENSIVE METABOLIC 2022-01-24 18:02:00 Marti Mace [facility] PANEL [facility] PHOSPHORUS LEVEL 2022-01-24 18:02:00 Marti Mace [facility] URIC ACID 2022-01-24 18:02:00 Marti Mace [facility] LACTATE DEHYDROGENASE 2022-01-24 18:02:00 Marti Mace [facility] MAGNESIUM LEVEL 2022-01-24 18:02:00 Marti Mace [facility] Results CBC 2022-01-24 18:02:00 Marti Mace [facility] GLUCOSE LEVEL 2022-01-24 18:02:00 Marti Mace [facility] BLOOD UREA NITROGEN 2022-01-24 18:02:00 Marti Mace [facility] ELECTROLYTE PANEL 2022-01-24 18:02:00 Marti Mace [facility] SERUM CREATININE 2022-01-24 18:02:00 Marti Mace [facility] .GLOMERULAR FILTRATION 2022-01-24 18:02:00 Marti Mace [facility] RATE [facility] CALCIUM LEVEL TOTAL 2022-01-24 18:02:00 Marti Mace [facility] ALBUMIN LEVEL 2022-01-24 18:02:00 Marti Mace [facility] ALKALINE PHOSPHATASE 2022-01-24 18:02:[address] [facility] ALANINE AMINOTRANSFERASE 2022-01-24 18:02:00 Marti Mace [facility] ASPARTATE AMINOTRANSFERASE 2022-01-24 18:02:[address] [facility] TOTAL PROTEIN 2022-01-24 18:02:00 Marti Mace [facility] FRACTIONATED BILIRUBIN 2022-01-24 18:02:00 Marti Mace [facility] ABORH 2022-01-24 18:02:00 Marti Mace [facility] ANTIBODY SCREEN 2022-01-24 18:02:00 Marti Mace [facility] MANUAL DIFFERENTIAL 2022-01-24 18:02:00 [facility] CLOT EXPIRATION DATE 2022-01-24 18:02:00 Marti Mace [facility] TMP INTERPRETATION 2022-01-24 18:02:[address] [facility] S[facility]EN NEGATIVE MD [facility] TACROLIMUS LEVEL 2022-01-24 18:02:00 Marti Mace [facility] COMPLETE BLOOD COUNT W/ 2022-01-22 10:38:00 Rosanne Mathias [facility] DIFFERENTIAL [facility] BASIC METABOLIC PANEL, 2022-01-22 10:38:00 Rosanne Mathias [facility] CALCIUM TOTAL [facility] TYPE AND SCREEN 2022-01-22 10:38:00 Rosanne Mathias [facility] ABORH 2022-01-22 10:38:00 Rosanne Mathias [facility] ANTIBODY SCREEN 2022-01-22 10:38:00 Rosanne Mathias [facility] GLUCOSE LEVEL 2022-01-22 10:38:00 Rosanne Mathias [facility] BLOOD UREA NITROGEN 2022-01-22 10:38:00 Rosanne Mathias [facility] ELECTROLYTE PANEL 2022-01-22 10:38:00 Rosanne Mathias [facility] SERUM CREATININE 2022-01-22 10:38:00 Rosanne Mathias [facility] .GLOMERULAR FILTRATION 2022-01-22 10:38:00 Rosanne [facility]ias [facility] RATE [facility] CALCIUM LEVEL TOTAL 2022-01-22 10:38:00 Rosanne Mathias [facility] Results CBC 2022-01-22 10:38:00 Rosanne Mathias [facility] MANUAL DIFFERENTIAL 2022-01-22 10:38:00 Rosanne Mathias [facility] TMP INTERPRETATION 2022-01-22 10:38:00 Rosanne Mathias [facility] ANTIBODY SCREEN NEGATIVE MD Cullen araujo [facility] CLOT EXPIRATION DATE 2022-01-22 10:38:00 Rosanne Mathias [facility] BLOODCULTURE 2022-01-21 11:19:00 Rosanne Mathias [facility] COMPLETE BLOOD COUNT W/ 2022-01-21 11:19:00 Rosanne Mathias [facility] DIFFERENTIAL [facility] COMPREHENSIVE METABOLIC 2022-01-21 11:19:00 Rosanne Mathias [facility] PANEL [facility] PHOSPHORUS LEVEL 2022-01-21 11:19:00 Rosanne Mathias [facility] MAGNESIUM LEVEL 2022-01-21 11:19:00 Rosanne Mathias [facility] URIC ACID 2022-01-21 11:19:00 Rosanne Mathias [facility] LACTATE DEHYDROGENASE 2022-01-21 11:19:00 [facility] QUANT PCR 2022-01-21 11:19:00 Rosanne Mathias [facility] TACROLIMUS LEVEL 2022-01-21 11:19:00 Rosanne Math[facility] Results CBC 2022-01-21 11:19:00 Rosanne Mathias [facility] MANUAL DIFFERENTIAL 2022-01-21 11:19:00 Rosanne Mathias [facility] GLUCOSE LEVEL 2022-01-21 11:19:00 Rosanne Mathias [place] [facility] BLOOD UREA NITROGEN 2022-01-21 11:19:00 Rosanne Mathias [facility] ELECTROLYTE PANEL 2022-01-21 11:19:00 Rosanne Mathias [facility] SERUM CREATININE 2022-01-21 11:19:00 Rosanne Mathias [facility] .GLOMERULAR FILTRATION 2022-01-21 11:19:00 Rosanne Mathias [facility] RATE [facility] CALCIUM LEVEL TOTAL 2022-01-21 11:19:00 Rosanne Mathias [facility] ALBUMIN LEVEL 2022-01-21 11:19:00 Rosanne Mathias [facility] ALKALINE PHOSPHATASE 2022-01-21 11:19:00 Rosanne Mathias [facility] ALANINE AMINOTRANSFERASE 2022-01-21 11:19:00 Rosanne Mathias [facility] ASPARTATE AMINOTRANSFERASE 2022-01-21 11:19:00 Rosanne Mathias U niversJoint [facility] TOTAL PROTEIN 2022-01-21 11:19:00 Rosanne Mathias [facility] FRACTIONATED BILIRUBIN 2022-01-21 11:19:00 Rosanne Mathiase [facility]Joint [facility] EKG, 12-LEAD (PORTABLE) 2022-01-21 00:00:00 Solmoon Figueroa [facility] BLOODCULTURE 2022-01-20 10:23:00 Rosanne Mathias [facility] COMPLETE BLOOD COUNT W/ 2022-01-20 10:23:00 Rosanne [facility] [place] [facility]FFER[facility] BASIC METABOLIC PANEL, 2022-01-20 10:23:00 Rosanne Mathias [facility] [place] CALCIUM TOTAL [facility] VANCOMYCIN LEVEL TROUGH 2022-01-20 10:23:00 Karina Kline [facility] Amee [facility] GLUCOSE LEVEL 2022-01-20 10:23:00 Rosanne Mathias [facility] BLOOD UREA NITROGEN 2022-01-20 10:23:00 Rosanne Mathias [facility] ELECTROLYTE PANEL 2022-01-20 10:23:00 Rosanne Mathias [facility] SERUM CREATININE 2022-01-20 10:23:00 Rosanne Mathias [facility] .GLOMERULAR FILTRATION 2022-01-20 10:23:00 Rosanne [facility] RATE [facility] CALCIUM LEVEL TOTAL 2022-01-20 10:23:00 Rosanne Mathias [facility] Results CBC 2022-01-20 10:23:00 Rosanne Mathias [facility] MANUAL DIFFERENTIAL 2022-01-20 10:23:00 Rosanne Mathias [facility] VRE CULTURE 2022-01-19 23:04:00 Rosanne Mathias [facility] BLOODCULTURE 2022-01-19 06:14:00 Rosanne Mathias [facility] TOBRAMYCIN LEVEL RANDOM 2022-01-19 06:14:[address] [facility] COMPLETE BLOOD COUNT W/ 2022-01-19 06:14:00 Rosanne Mathias [facility] DIFFERENTIAL [facility] BASIC METABOLIC PANEL, 2022-01-19 06:14:00 Rosanne Mathias [facility] CALCIUM TOTAL [facility] TYPE AND SCREEN 2022-01-19 06:14:00 Rosanne Mathias [facility] ABORH 2022-01-19 06:14:00 Rosanne Mathias [facility] ANTIBODY SCREEN 2022-01-19 06:14:00 Rosanne Mathias [facility] GLUCOSE LEVEL 2022-01-19 06:14:00 Rosanne Mathias [place] [facility] BLOOD UREA NITROGEN 2022-01-19 06:14:00 Rosanne Mathias [facility] ELECTROLYTE PANEL 2022-01-19 06:14:00 Rosanne Mathias [facility] SERUM CREATININE 2022-01-19 06:14:00 Rosanne Mathias [facility] .GLOMERULAR FILTRATION 2022-01-19 06:14:00 Rosanne Mathias [facility] RATE [facility] CALCIUM LEVEL TOTAL 2022-01-19 06:14:00 Rosanne Mathias [facility] Results CBC 2022-01-19 06:14:00 Rosanne Mathias [facility] MANUAL DIFFERENTIAL 2022-01-19 06:14:00 Rosanne Mathias [facility] CLOT EXPIRATION DATE 2022-01-19 06:14:[address] [facility] TMP INTERPRETATION 2022-01-19 06:14:00 Rosanne Mathias [facility] ANTIBODY SCREEN NEGATIVE MD [facility] Cancer Center [place] REMOVAL TUNNELED CV 2022-01-18 15:26:17 Rosanne Mathias [facility] CATH W/O SUBQ PORT OR PUMP MD [facility] BLOODCULTURE 2022-01-18 08:30:00 Myra Bertrand [facility] COMPLETE BLOOD COUNT W/ 2022-01-18 08:30:00 Myra Bertrand [facility] [place] DIFFERENTIAL [facility] BASIC METABOLIC PANEL, 2022-01-18 08:30:00 Myra Bertrand [facility] CALCIUM TOTAL [facility] MAGNESIUM LEVEL 2022-01-18 08:30:00 Myra Bertrand [facility] PHOSPHORUS LEVEL 2022-01-18 08:30:00 Myra Bertrand [facility] Results CBC 2022-01-18 08:30:00 [facility] MANUAL DIFFERENTIAL 2022-01-18 08:30:00 Myra Bertrand [facility] er Center GLUCOSE LEVEL 2022-01-18 08:30:00 Elza [facility] Center BLOOD UREA NITROGEN 2022-01-18 08:30:[address] [facility] ELECTROLYTE PANEL 2022-01-18 08:30:00 Myra Bertrand [facility] er Center SERUM CREATININE 2022-01-18 08:30:00 [facility] .GLOMERULAR FILTRATION 2022-01-18 08:30:00 Myra Bertrand [facility] RATE [facility] CALCIUM LEVEL TOTAL 2022-01-18 08:30:[address] [facility] Center BLOODCULTURE 2022-01-18 08:00:00 Elza [facility] Center COMPLETE BLOOD COUNT W/ 2022-01-18 08:00:00 Deena Betancourt [facility] DIFFERENTIAL [facility] COMPREHENSIVE METABOLIC 2022-01-18 08:00:00 Deena Betancourt [facility] [place] PANEL [facility] er Center MAGNESIUM LEVEL 2022-01-18 08:00:00 Deena Betancourt [facility] er Center TYPE AND SCREEN 2022-01-18 08:00:00 Deena Betancourt [facility] er Center Results CBC 2022-01-18 08:00:00 Deena Betancourt [facility] er Center MANUAL DIFFERENTIAL 2022-01-18 08:00:00 Deena Betancourte [facility] er Center GLUCOSE LEVEL 2022-01-18 08:00:00 Deena Betancourt [facility] er Center BLOOD UREA NITROGEN 2022-01-18 08:00:00 Deena [facility] ELECTROLYTE PANEL 2022-01-18 08:00:[address] [facility] SERUM CREATININE 2022-01-18 08:00:00 Deena Betancoutr [facility] .GLOMERULAR FILTRATION 2022-01-18 08:00:00 Deena Betancourt Un [facility] CALCIUM LEVEL TOTAL 2022-01-18 08:00:00 Deena Betancourt [facility] ALBUMIN LEVEL 2022-01-18 08:00:00 Deena Betancourt [facility] ALKALINE PHOSPHATASE 2022-01-18 08:00:[address] [facility] ALANINE AMINOTRANSFERASE 2022-01-18 08:00:00 Deena Betancourt [facility] ASPARTATE AMINOTRANSFERASE 2022-01-18 08:00:00 Deena Betancourt [facility] TOTAL PROTEIN 2022-01-18 08:00:00 Deena Betancourt [facility] FRACTIONATED BILIRUBIN 2022-01-18 08:00:00 [facility] 2022-01-18 08:00:00 Deena Betancourt [facility] ANTIBODY SCREEN 2022-01-18 08:00:00 Deena Betancourt [facility] TMP INTERPRETATION 2022-01-18 08:00:00 Deena Betancourt [facility] ANTIBODY SCREEN NEGATIVE MD [facility] CLOT EXPIRATION DATE 2022-01-18 08:00:[address] [facility] URINE CULTURE 2022-01-18 04:07:00 Moe Bennett [facility] URINALYSIS WITH 2022-01-18 04:07:00 Moe Bennett [facility] MICROSCOPIC IF INDICATED MD [facility] [place] URINALYSIS MICROSCOPIC 2022-01-18 04:07:00 [facility] POC VENOUS BLOOD GAS + 2022-01-17 22:10:00 Moe Bennett [facility] LACTATE [facility] XR CHEST 1 VW 2022-01-17 22:00:18 Bud [facility] BLOODCULTURE 2022-01-17 21:47:00 Bud [facility] RESPIRATORY VIRAL PANEL + 2022-01-17 21:46:00 [facility], NASOPHARYNGEAL MD [facility] Cancer [facility] COMPLETE BLOOD COUNT W/ 2022-01-17 21:46:00 Bud [facility] DIFFERENTIAL [facility] COMPREHENSIVE METABOLIC 2022-01-17 21:46:00 Bud [facility] PANEL [facility] MAGNESIUM LEVEL 2022-01-17 21:46:00 Bud [facility] PHOSPHORUS LEVEL 2022-01-17 21:46:00 Bud [facility] LACTATE DEHYDROGENASE 2022-01-17 21:46:00 Alex Farrell [facility] C REACTIVE PROTEIN 2022-01-17 21:46:00 Bud [facility] PROCALCITONIN 2022-01-17 21:46:00 Bud [facility] Results CBC 2022-01-17 21:46:00 Bud [facility] MANUAL DIFFERENTIAL 2022-01-17 21:46:00 Bud [facility] GLUCOSE LEVEL 2022-01-17 21:46:00 Bud [facility] BLOOD UREA NITROGEN 2022-01-17 21:46:00 Bud [facility] ELECTROLYTE PANEL 2022-01-17 21:46:00 Bud [facility] SERUM CREATININE 2022-01-17 21:46:00 Bud [facility] .GLOMERULAR FILTRATION 2022-01-17 21:46:00 Alex [facility] RATE [facility] CALCIUM LEVEL TOTAL 2022-01-17 21:46:00 Alex Farrell [facility] ALBUMIN LEVEL 2022-01-17 21:46:00 Alex Farrell [facility] ALKALINE PHOSPHATASE 2022-01-17 21:46:[address] [facility] ALANINE AMINOTRANSFERASE 2022-01-17 21:46:00 Alex Farrell [facility] ASPARTATE AMINOTRANSFERASE 2022-01-17 21:46:00 Alex [facility] TOTAL PROTEIN 2022-01-17 21:46:00 Bud [facility] FRACTIONATED BILIRUBIN 2022-01-17 21:46:00 Alex Farrell [facility] CT HEAD WO CONTRAST 2022-01-17 21:28:51 Bud [facility] BLOODCULTURE 2022-01-17 16:47:00 Deena Betancourt [facility] HHV6 QUANT, PLASMA 2022-01-17 15:23:00 Van Wolf [facility] ADENOVIRUS QUANTITATIVE, 2022-01-17 15:23:00 Van Wolf [facility] PLASMA [facility] COMPLETE BLOOD COUNT W/ 2022-01-17 15:23:00 Van Wolf [facility] DIFFERENTIAL [facility] TYPE AND SCREEN 2022-01-17 15:23:00 Van Wolf [facility] COMPREHENSIVE METABOLIC 2022-01-17 15:23:00 Van Wolf [facility] PANEL [facility] PHOSPHORUS LEVEL 2022-01-17 15:23:00 Van Wolf [facility] URIC ACID 2022-01-17 15:23:00 Van Wolf [facility] LACTATE DEHYDROGENASE 2022-01-17 15:23:00 Van [facility] MAGNESIUM LEVEL 2022-01-17 15:23:00 Van Wolf [facility] CMV QUANT PCR 2022-01-17 15:23:00 Van Wolf [facility] TACROLIMUS LEVEL 2022-01-17 15:23:00 Van Wolf [facility] LIPID PANEL 2022-01-17 15:23:00 Van Wolf [facility] Results CBC 2022-01-17 15:23:00 Van Wolf [facility] MANUAL DIFFERENTIAL 2022-01-17 15:23:00 Van Wolf [facility] GLUCOSE LEVEL 2022-01-17 15:23:00 Van Wolf [facility] BLOOD UREA NITROGEN 2022-01-17 15:23:00 Van Wolf [facility] ELECTROLYTE PANEL 2022-01-17 15:23:00 Van Wolf [facility] SERUM CREATININE 2022-01-17 15:23:00 Van Wolf [facility] .GLOMERULAR FILTRATION 2022-01-17 15:23:00 Van Wolf [facility] CALCIUM LEVEL TOTAL 2022-01-17 15:23:00 Van Wolf [facility] ALBUMIN LEVEL 2022-01-17 15:23:00 Van Wolf [facility] ALKALINE PHOSPHATASE 2022-01-17 15:23:[address] [facility] ALANINE AMINOTRANSFERASE 2022-01-17 15:23:00 Van Wolf Uni [facility] ASPARTATE AMINOTRANSFERASE 2022-01-17 15:23:00 Van Wolf U n[facility]Joint [facility] TOTAL PROTEIN 2022-01-17 15:23:00 Van Wolf [facility] FRACTIONATED BILIRUBIN 2022-01-17 15:23:00 Van Wolf [facility] ABORH 2022-01-17 15:23:00 Van Wolf [facility] ANTIBODY SCREEN 2022-01-17 15:23:00 Van Wolf [facility] TMP INTERPRETATION 2022-01-17 15:23:00 Vna Wolf [facility] ANTIBODY SCREEN NEGATIVE MD [facility] Center CLOT EXPIRATION DATE 2022-01-17 15:23:[address] [facility] COMPLETE BLOOD COUNT W/ 2022-01-04 15:16:00 Lesley Valdez [facility] DIFFERENTIAL [facility] TYPE AND SCREEN 2022-01-04 15:16:00 Lesley Valdez [facility] COMPREHENSIVE METABOLIC 2022-01-04 15:16:00 Lesley Valdez [facility] PANEL [facility] LACTATE DEHYDROGENASE 2022-01-04 15:16:00 Lesley Valdez [facility] MAGNESIUM LEVEL 2022-01-04 15:16:00 Lesley Valdez [facility] Results CBC 2022-01-04 15:16:00 Lesley Valdez [facility] MANUAL DIFFERENTIAL 2022-01-04 15:16:00 Lesley Valdez [facility] GLUCOSE LEVEL 2022-01-04 15:16:00 [facility] BLOOD UREA NITROGEN 2022-01-04 15:16:00 Lesley Valdez [facility] ELECTROLYTE PANEL 2022-01-04 15:16:00 Lesley Valdez [facility] SERUM CREATININE 2022-01-04 15:16:00 Lesley Valdze [facility] .GLOMERULAR FILTRATION 2022-01-04 15:16:00 Leslye Valdez [facility] CALCIUM LEVEL TOTAL 2022-01-04 15:16:00 Lesley Valdez [facility] ALBUMIN LEVEL 2022-01-04 15:16:00 Courtney [facility] ALKALINE PHOSPHATASE 2022-01-04 15:16:00 Lesley Valdez [facility] ALANINE AMINOTRANSFERASE 2022-01-04 15:16:00 [facility] ASPARTATE AMINOTRANSFERASE 2022-01-04 15:16:00 Courtney [facility] TOTAL PROTEIN 2022-01-04 15:16:00 Courtney [facility] FRACTIONATED BILIRUBIN 2022-01-04 15:16:00 Lesley Valdez [facility] ABORH 2022-01-04 15:16:00 Courtney [facility] ANTIBODY SCREEN 2022-01-04 15:16:00 Courtney [facility] TMP INTERPRETATION 2022-01-04 15:16:00 Lesley Valdez [facility] ANTIBODY SCREEN NEGATIVE MD [facility] Center CLOT EXPIRATION DATE 2022-01-04 15:16:00 Lesley [facility]dez [facility] COMPLETE BLOOD COUNT W/ 2021-12-27 15:27:00 Deena Betancourt [facility] DIFFERENTIAL [facility] COMPREHENSIVE METABOLIC 2021-12-27 15:27:00 Deena [facility]ourt [facility] PANEL [facility] MAGNESIUM LEVEL 2021-12-27 15:27:00 Deena Betancourt [facility] TYPE AND SCREEN 2021-12-27 15:27:00 Deena Betancourt [facility] Results CBC 2021-12-27 15:27:00 Deena Betancourt [facility] MANUAL DIFFERENTIAL 2021-12-27 15:27:00 Deena [facility]ourt [facility] GLUCOSE LEVEL 2021-12-27 15:27:00 Deena Betancourt [facility] BLOOD UREA NITROGEN 2021-12-27 15:27:00 Deena Betancourt [facility] ELECTROLYTE PANEL 2021-12-27 15:27:[address] [facility] ABORH 2021-12-27 15:27:00 Deena Betancourt [facility] ANTIBODY SCREEN 2021-12-27 15:27:00 Deena Betancourt [facility] SERUM CREATININE 2021-12-27 15:27:00 Deena Betancourt [facility] .GLOMERULAR FILTRATION 2021-12-27 15:27:00 Deena Betancourt Un [facility] RATE [facility] CALCIUM LEVEL TOTAL 2021-12-27 15:27:00 Deena Betancourt [facility] ALBUMIN LEVEL 2021-12-27 15:27:00 Deena Betancourt [facility] ALKALINE PHOSPHATASE 2021-12-27 15:27:00 Deena Betancourt ersJoint [facility] ALANINE AMINOTRANSFERASE 2021-12-27 15:27:00 Deena [facility]ancourt [facility] ASPARTATE AMINOTRANSFERASE 2021-12-27 15:27:00 Deena [facility]ancourt [facility] TOTAL PROTEIN 2021-12-27 15:27:00 Deena Betancourt [facility] FRACTIONATED BILIRUBIN 2021-12-27 15:27:00 Deena Betancourt [facility] TMP INTERPRETATION 2021-12-27 15:27:00 Deena Betancourt [facility] ANTIBODY SCREEN NEGATIVE MD [facility] CLOT EXPIRATION DATE 2021-12-27 15:27:[address] [facility] HHV6 QUANT, PLASMA 2021-12-13 15:33:00 Sandor [facility] ADENOVIRUS QUANTITATIVE, 2021-12-13 15:33:00 [facility] PARVOVIRUS B19 QUANT, 2021-12-13 15:33:00 Sandor [facility] PLASMA [facility] COMPLETE BLOOD COUNT W/ 2021-12-13 15:33:00 Sandor [facility] DIFFERENTIAL [facility] TYPE AND SCREEN 2021-12-13 15:33:00 Sandor [facility] COMPREHENSIVE METABOLIC 2021-12-13 15:33:00 Sandor [facility] PANEL [facility] PHOSPHORUS LEVEL 2021-12-13 15:33:00 Sandor [facility] URIC ACID 2021-12-13 15:33:00 Sandor [facility] LACTATE DEHYDROGENASE 2021-12-13 15:33:00 Sandor [facility] MAGNESIUM LEVEL 2021-12-13 15:33:[address] [facility] HP CARMELO-ADDISON VIRUS 2021-12-13 15:33:00 [facility] ANALYSIS [facility]LE[facility], BLOOD Center CMV QUANT PCR 2021-12-13 15:33:00 Sandor [facility] TACROLIMUS LEVEL 2021-12-13 15:33:00 Sandor [facility] LIPID PANEL 2021-12-13 15:33:00 Sandor [facility] THYROID STIMULATING 2021-12-13 15:33:00 Sandor [facility] HORMONE [facility] FREE THYROXINE 2021-12-13 15:33:00 Sandor [facility] HEMOGLOBIN A1C 2021-12-13 15:33:00 [facility] VIT[facility]IN D 25 HYDROXY LEVEL 2021-12-13 15:33:00 Lyndsay Patten [facility] Results CBC 2021-12-13 15:33:00 Sandor [facility] MANUAL DIFFERENTIAL 2021-12-13 15:33:00 Sandor [facility] GLUCOSE LEVEL 2021-12-13 15:33:00 Sandor [facility] BLOOD UREA NITROGEN 2021-12-13 15:33:00 [facility] ELECTROLYTE PANEL 2021-12-13 15:33:00 Sandor [facility] SERUM CREATININE 2021-12-13 15:33:00 Sandor [facility] .GLOMERULAR FILTRATION 2021-12-13 15:33:00 Lyndsay Patten [facility] RATE [facility] CALCIUM LEVEL TOTAL 2021-12-13 15:33:00 [facility] ALBUMIN LEVEL 2021-12-13 15:33:00 [facility] ALKALINE PHOSPHATASE 2021-12-13 15:33:00 [facility] ALANINE AMINOTRANSFERASE 2021-12-13 15:33:00 Lyndsay Patten [facility] ASPARTATE AMINOTRANSFERASE 2021-12-13 15:33:00 Lyndsay Patten n[facility]icent [facility] TOTAL PROTEIN 2021-12-13 15:33:00 Sandor [facility] FRACTIONATED BILIRUBIN 2021-12-13 15:33:00 Lyndsay Patten [facility] ABORH 2021-12-13 15:33:00 Sandor [facility] ANTIBODY SCREEN 2021-12-13 15:33:00 Sandor [facility] CLOT EXPIRATION DATE 2021-12-13 15:33:00 Lyndsay Patten [facility] TMP INTERPRETATION 2021-12-13 15:33:00 Lyndsay Patten [facility] ANTIBODY SCREEN NEGATIVE MD [facility] Cancer Center HP CARMELO-ADDISON VIRUS 2021-12-13 15:33:00 Lyndsay Patten [facility] QUANTITATIVE PCR ANALYSIS And erson [facility] INTERPRETATION AND REPORT Center COMPLETE BLOOD COUNT W/ 2021-12-06 14:59:00 [facility] DIFFERENTIAL [facility] COMPREHENSIVE METABOLIC 2021-12-06 14:59:00 [facility] PANEL [facility] MAGNESIUM LEVEL 2021-12-06 14:59:00 Deena Betancourt [facility] TYPE AND SCREEN 2021-12-06 14:59:00 Deena Betancourt [facility] Results CBC 2021-12-06 14:59:00 Deena Betancourt [facility] MANUAL DIFFERENTIAL 2021-12-06 14:59:00 Deena Betancourt [facility] GLUCOSE LEVEL 2021-12-06 14:59:00 Deena Betancourt [facility] BLOOD UREA NITROGEN 2021-12-06 14:59:00 Niya, Deena M [facility] ELECTROLYTE PANEL 2021-12-06 14:59:[address] [facility] SERUM CREATININE 2021-12-06 14:59:00 Deena Betancourt [facility] .GLOMERULAR FILTRATION 2021-12-06 14:59:00 Deena [facility]ancourt [facility] CALCIUM LEVEL TOTAL 2021-12-06 14:59:00 Deena [facility]ourt [facility] ALBUMIN LEVEL 2021-12-06 14:59:00 Deena Betancourt [facility] ALKALINE PHOSPHATASE 2021-12-06 14:59:[address] [facility] ALANINE AMINOTRANSFERASE 2021-12-06 14:59:00 Deena [facility]ancourt [facility] ASPARTATE AMINOTRANSFERASE 2021-12-06 14:59:00 Deena [facility]ancourt [facility] TOTAL PROTEIN 2021-12-06 14:59:00 Deena Betancourt [facility] FRACTIONATED BILIRUBIN 2021-12-06 14:59:00 Deena [facility]H 2021-12-06 14:59:00 Deena Betancourt [facility] ANTIBODY SCREEN 2021-12-06 14:59:00 Deena Betancourt [facility] TMP INTERPRETATION 2021-12-06 14:59:00 Deena Betancourt [facility] ANTIBODY SCREEN NEGATIVE MD [facility]erman [facility] CLOT EXPIRATION DATE 2021-12-06 14:59:[address] [facility] XR SPINE SCOLIOSIS 2-3 2021-12-05 19:35:16 [facility]ric [facility] VIEWS BLOODCULTURE 2021-11-29 15:50:00 Cynthia Centeno [facility] COMPLETE BLOOD COUNT W/ 2021-11-29 15:50:00 Cynthia [facility] [place] DIFFERENTIAL [facility] COMPREHENSIVE METABOLIC 2021-11-29 15:50:00 Cynthia Centeno Un [facility] [place] PANEL [facility] MAGNESIUM LEVEL 2021-11-29 15:50:00 Cynthia Cent[facility] Results CBC 2021-11-29 15:50:00 Cynthia Centeno [facility] MANUAL DIFFERENTIAL 2021-11-29 15:50:00 Cynthia Cent[facility] GLUCOSE LEVEL 2021-11-29 15:50:00 Cynthia Centeno [facility] BLOOD UREA NITROGEN 2021-11-29 15:50:00 Cynthia Centeno [facility] ELECTROLYTE PANEL 2021-11-29 15:50:00 [facility] SERUM CREATININE 2021-11-29 15:50:00 Cynthia Centeno [facility] .GLOMERULAR FILTRATION 2021-11-29 15:50:00 Cynthia Cent[facility] RATE [facility] CALCIUM LEVEL TOTAL 2021-11-29 15:50:00 Cynthia Centeno [facility] ALBUMIN LEVEL 2021-11-29 15:50:00 Cynthia Centeno [facility] ALKALINE PHOSPHATASE 2021-11-29 15:50:00 Cynthia Centenoe [facility] ALANINE AMINOTRANSFERASE 2021-11-29 15:50:00 Cynthia Centeno U niversJoint [facility] ASPARTATE AMINOTRANSFERASE 2021-11-29 15:50:00 Cynthia Centeno [facility] TOTAL PROTEIN 2021-11-29 15:50:00 Cynthia Centeno [facility] FRACTIONATED BILIRUBIN 2021-11-29 15:50:00 Cynthia Centeno Uni versJoint [facility] COMPLETE BLOOD COUNT W/ 2021-11-20 13:22:00 Deena Betancourt [facility] DIFFERENTIAL [facility] COMPREHENSIVE METABOLIC 2021-11-20 13:22:00 [facility] PANEL [facility] MAGNESIUM LEVEL 2021-11-20 13:22:00 Deena Betancourt [facility] TYPE AND SCREEN 2021-11-20 13:22:00 Deena Betancourt [facility] Results CBC 2021-11-20 13:22:00 Deena Betancourt [facility] MANUAL DIFFERENTIAL 2021-11-20 13:22:00 Deena Betancourt [facility] GLUCOSE LEVEL 2021-11-20 13:22:00 Deena Betancourt [facility] BLOOD UREA NITROGEN 2021-11-20 13:22:00 Deena Betancourt [facility] rs[facility] ELECTROLYTE PANEL 2021-11-20 13:22:00 Deena Betancourt [facility] SERUM CREATININE 2021-11-20 13:22:00 Deena [facility]ourti [facility] .GLOMERULAR FILTRATION 2021-11-20 13:22:00 Deena Betancourt [facility] [place] RATE [facility] Center CALCIUM LEVEL TOTAL 2021-11-20 13:22:00 Deena Betancourt rsJoint [facility] ALBUMIN LEVEL 2021-11-20 13:22:00 Deena Betancourt [facility] ALKALINE PHOSPHATASE 2021-11-20 13:22:00 Deena Betancourt ersity [facility] ALANINE AMINOTRANSFERASE 2021-11-20 13:22:00 Deena Betancourt [facility] ASPARTATE AMINOTRANSFERASE 2021-11-20 13:22:00 Deena [facility]ourt [facility] TOTAL PROTEIN 2021-11-20 13:22:00 Deena Betancourt [facility] FRACTIONATED BILIRUBIN 2021-11-20 13:22:00 Deena Betancourt Un iversJoint [facility] ABORH 2021-11-20 13:22:00 Deena Betancourt [facility] ANTIBODY SCREEN 2021-11-20 13:22:00 Deena Betancourt [facility] TMP INTERPRETATION 2021-11-20 13:22:00 Deena Betancourt [facility] ANTIBODY SCREEN NEGATIVE MD Berman theresa [facility] CLOT EXPIRATION DATE 2021-11-20 13:22:[address] [facility] COMPLETE BLOOD COUNT W/ 2021-11-15 15:53:00 Sandor [facility] DIFFERENTIAL [facility] Center TYPE AND SCREEN 2021-11-15 15:53:00 [facility] COMPREHENSIVE METABOLIC 2021-11-15 15:53:00 Sandor [facility] PANEL [facility] PHOSPHORUS LEVEL 2021-11-15 15:53:00 [facility] URIC ACID 2021-11-15 15:53:00 [facility] LACTATE DEHYDROGENASE 2021-11-15 15:53:00 [facility] MAGNESIUM LEVEL 2021-11-15 15:53:00 [facility] CMV QUANT PCR 2021-11-15 15:53:00 [facility] TACROLIMUS LEVEL 2021-11-15 15:53:00 [facility] Results CBC 2021-11-15 15:53:00 [facility] MANUAL DIFFERENTIAL 2021-11-15 15:53:00 Sandor [facility] GLUCOSE LEVEL 2021-11-15 15:53:00 Sandor [facility] BLOOD UREA NITROGEN 2021-11-15 15:53:00 Sandor [facility] ELECTROLYTE PANEL 2021-11-15 15:53:00 Sandor [facility] SERUM CREATININE 2021-11-15 15:53:00 Snador [facility] .GLOMERULAR FILTRATION 2021-11-15 15:53:00 Lyndsay Patten [facility] CALCIUM LEVEL TOTAL 2021-11-15 15:53:00 [facility] ALBUMIN LEVEL 2021-11-15 15:53:00 [facility]an [facility] ALKALINE PHOSPHATASE 2021-11-15 15:53:[address] [facility] ALANINE AMINOTRANSFERASE 2021-11-15 15:53:00 Lyndsay Patten [facility] ASPARTATE AMINOTRANSFERASE 2021-11-15 15:53:00 Lyndsay Patten [facility] TOTAL PROTEIN 2021-11-15 15:53:00 [facility] FRACTIONATED BILIRUBIN 2021-11-15 15:53:00 Lyndsay Patten [facility] ABORH 2021-11-15 15:53:00 [facility]TIB[facility] S[facility] 2021-11-15 15:53:00 Sandor [facility] TMP INTERPRETATION 2021-11-15 15:53:00 Lyndsay Patten [facility] ANTIBODY SCREEN NEGATIVE MD [facility] CLOT EXPIRATION DATE 2021-11-15 15:53:[address] [facility] HHV6 QUANT, PLASMA 2021-11-13 16:21:00 [facility] AD[facility]US QUANTITATIVE, 2021-11-13 16:21:00 [facility] COMPLETE BLOOD COUNT W/ 2021-11-13 16:21:00 Sandor [facility] DIFFERENTIAL [facility] TYPE AND SCREEN 2021-11-13 16:21:00 Sandor [facility] COMPREHENSIVE METABOLIC 2021-11-13 16:21:00 Sandor [facility] PANEL [facility] PHOSPHORUS LEVEL 2021-11-13 16:21:00 Sandor [facility] URIC ACID 2021-11-13 16:21:00 Sandor [facility] LACTATE DEHYDROGENASE 2021-11-13 16:21:00 [facility] MAGNESIUM LEVEL 2021-11-13 16:21:00 Sandor [facility] HP MD CARMELO-ADDISON VIRUS 2021-11-13 16:21:00 Lyndsay Patten [facility] QUANTITATIVE PCR ANALYSIS [facility], BLOOD Center CMV QUANT PCR 2021-11-13 16:21:00 Sandor [facility] TACROLIMUS LEVEL 2021-11-13 16:21:00 Sandor [facility] ABORH 2021-11-13 16:21[facility] 2021-11-13 16:21[facility] Results CBC 2021-11-13 16:21:00 Sandor [facility] MANUAL DIFFERENTIAL 2021-11-13 16:21:00 Lyndsay Patten [facility] GLUCOSE LEVEL 2021-11-13 16:21:00 [facility] BLOOD UREA NITROGEN 2021-11-13 16:21:00 Sandor [facility] ELECTROLYTE PANEL 2021-11-13 16:21:00 Sandor [facility] SERUM CREATININE 2021-11-13 16:21:00 Sandor [facility] .GLOMERULAR FILTRATION 2021-11-13 16:21:00 Lyndsay Patten [facility] RATE [facility] CALCIUM LEVEL TOTAL 2021-11-13 16:21:00 Sandor [facility] ALBUMIN LEVEL 2021-11-13 16:21:00 Sandor [facility] ALKALINE PHOSPHATASE 2021-11-13 16:21:[address] [facility] ALANINE AMINOTRANSFERASE 2021-11-13 16:21:00 Lyndsay Patten [facility] ASPARTATE AMINOTRANSFERASE 2021-11-13 16:21:[address] [facility] TOTAL PROTEIN 2021-11-13 16:21:00 [facility] FRACTIONATED BILIRUBIN 2021-11-13 16:21:00 Lyndsay Patten [facility] TMP INTERPRETATION 2021-11-13 16:21:00 Lyndsay Patten [facility] ANTIBODY SCREEN NEGATIVE MD [facility] Cancer Center HP CARMELO-ADDISON VIRUS 2021-11-13 16:21:00 Lyndsay Patten [facility] QUANTITATIVE PCR ANALYSIS And [facility] INTERPRETATION AND REPORT Center CLOT EXPIRATION DATE 2021-11-13 16:21:[address] [facility] COMPLETE BLOOD COUNT W/ 2021-11-06 16:54:00 [facility] [place] DIFFERENTIAL [facility] COMPREHENSIVE METABOLIC 2021-11-06 16:54:00 Niya, Deena M [facility] MAGNESI[facility] L[facility] 2021-11-06 16:54:00 Deena Betancourt [facility] TYPE AND SCREEN 2021-11-06 16:54:00 Deena Betancourt [facility] Results CBC 2021-11-06 16:54:00 Deena Betancourt [facility] MANUAL DIFFERENTIAL 2021-11-06 16:54:00 Deena Betancourt [facility] GLUCOSE LEVEL 2021-11-06 16:54:00 Deena Betancourt [facility] BLOOD UREA NITROGEN 2021-11-06 16:54:00 [facility] ELECTROLYTE PANEL 2021-11-06 16:54:[address] [facility] SERUM CREATININE 2021-11-06 16:54:00 Deena Betancourt [facility] .GLOMERULAR FILTRATION 2021-11-06 16:54:00 Deena Betancourt [facility] CALCIUM LEVEL TOTAL 2021-11-06 16:54:00 Deena Betancourt [facility] ALBUMIN LEVEL 2021-11-06 16:54:00 Deena Betancourt [facility] ALKALINE PHOSPHATASE 2021-11-06 16:54:[address] [facility] ALANINE AMINOTRANSFERASE 2021-11-06 16:54:00 Deena Betancourt [facility] Center ASPARTATE AMINOTRANSFERASE 2021-11-06 16:54:00 De[facility] TOTAL PROTEIN 2021-11-06 16:54:00 Deena Betancourt [facility] FRACTIONATED BILIRUBIN 2021-11-06 16:54:00 Deena Betancourt [facility] ABORH 2021-11-06 16:54:00 Deena [facility]ancourt [facility] [place] ANTIBODY SCREEN 2021-11-06 16:54:00 Deena Betancourt [facility] TMP INTERPRETATION 2021-11-06 16:54:00 Deena Betancourt [facility] ANTIBODY SCREEN NEGATIVE MD [facility] CLOT EXPIRATION DATE 2021-11-06 16:54:00 Deena Betancourt [facility]Joint [facility] COMPLETE BLOOD COUNT W/ 2021-11-01 15:58:00 Deena [facility] [place] DIFFERENTIAL [facility] COMPREHENSIVE METABOLIC 2021-11-01 15:58:00 Deena [facility] [place] PANEL [facility] MAGNESIUM LEVEL 2021-11-01 15:58:00 Deena Betancourt [facility] Results CBC 2021-11-01 15:58:00 Deena Betancourt [facility] MANUAL DIFFERENTIAL 2021-11-01 15:58:00 Deena Betancourt [facility] GLUCOSE LEVEL 2021-11-01 15:58:00 Deena Betancourt [facility] BLOOD UREA NITROGEN 2021-11-01 15:58:00 Deena Betancourt [facility] ELECTROLYTE PANEL 2021-11-01 15:58:00 Deena Betancourt [facility] SERUM CREATININE 2021-11-01 15:58:00 Deena Betancourt [facility] .GLOMERULAR FILTRATION 2021-11-01 15:58:00 Deena Betancourt [facility] [place] RATE [facility] CALCIUM LEVEL TOTAL 2021-11-01 15:58:00 Deena Betancourt [facility] rsity of [facility] Center ALBUMIN LEVEL 2021-11-01 15:58:00 Deena Betancourt [facility] ALKALINE PHOSPHATASE 2021-11-01 15:58:[address] [facility] ALANINE AMINOTRANSFERASE 2021-11-01 15:58:00 Deena [facility] ASPARTATE AMINOTRANSFERASE 2021-11-01 15:58:00 Deena [facility] TOTAL PROTEIN 2021-11-01 15:58:00 Deena Betancourt [facility] FRACTIONATED BILIRUBIN 2021-11-01 15:58:00 Deena Betancourt [facility]Joint [facility] CT CHEST/LUNG SURVEILLANCE 2021-10-25 13:54:41 Marlen [facility] LOW DOSE [facility] COMPLETE BLOOD COUNT W/ 2021-10-23 15:51:00 Deena Betancourt [facility] DIFFERENTIAL [facility] COMPREHENSIVE METABOLIC 2021-10-23 15:51:00 Deena Betancourt [facility] MAGNESIUM LEVEL 2021-10-23 15:51:00 Deena Betancourt [facility] TYPE AND SCREEN 2021-10-23 15:51:00 Deena Betancourt [facility] Results CBC 2021-10-23 15:51:00 Deena Betancourt [facility] MANUAL DIFFERENTIAL 2021-10-23 15:51:00 Deena [facility]ourt [facility] GLUCOSE LEVEL 2021-10-23 15:51:00 Deena Betancorut [facility] BLOOD UREA NITROGEN 2021-10-23 15:51:00 Deena Betancourt [facility] ELECTROLYTE PANEL 2021-10-23 15:51:[address] [facility] SERUM CREATININE 2021-10-23 15:51:00 Deena Betancourt [facility] .GLOMERULAR FILTRATION 2021-10-23 15:51:00 Deena Betancourt Un [facility] [place] RATE [facility] CALCIUM LEVEL TOTAL 2021-10-23 15:51:00 Deena Betancourt [facility] ALBUMIN LEVEL 2021-10-23 15:51:00 Deena Betancourt [facility] ALKALINE PHOSPHATASE 2021-10-23 15:51:[address] [facility] ALANINE AMINOTRANSFERASE 2021-10-23 15:51:00 Deena [facility] ASPARTATE AMINOTRANSFERASE 2021-10-23 15:51:00 Deena [facility] TOTAL PROTEIN 2021-10-23 15:51:00 Deena Betancourt [facility] FRACTIONATED BILIRUBIN 2021-10-23 15:51:00 De[facility] 2021-10-23 15:51:00 Deena Betancourt [facility] ANTIBODY SCREEN 2021-10-23 15:51:00 Deena Betancourt [facility] CLOT EXPIRATION DATE 2021-10-23 15:51:[address] [facility] TMP INTERPRETATION 2021-10-23 15:51:00 Deena Betancourt [facility] ANTIBODY SCREEN NEGATIVE MD [facility] INTUBATION 2021-10-22 13:47:11 Camilo Orozco [facility] INTRATHECAL INFUSION PUMP 2021-10-22 13:13:00 Aramis Donaldson [facility] PATIENT QUESTIONNAIRE 2021-10-22 06:01:00 Doctor Unassigned, [facility] [place] [facility] COMPLETE BLOOD COUNT W/ 2021-10-18 15:45:00 Deena Betancourt [facility] DIFFERENTIAL [facility] COMPREHENSIVE METABOLIC 2021-10-18 15:45:00 Deena Betancourt [facility] PANEL [facility] MAGNESIUM LEVEL 2021-10-18 15:45:00 Deena Betancourt [facility] TYPE AND SCREEN 2021-10-18 15:45:00 Deena Betancourt [facility] Results CBC 2021-10-18 15:45:00 Deena Betancourt [facility] MANUAL DIFFERENTIAL 2021-10-18 15:45:00 Deena [facility]ourt [facility] GLUCOSE LEVEL 2021-10-18 15:45:00 Deena Betancourt [facility] BLOOD UREA NITROGEN 2021-10-18 15:45:00 Deena Betancourt [facility] ELECTROLYTE PANEL 2021-10-18 15:45:[address] [facility] SERUM CREATININE 2021-10-18 15:45:00 Deena Betancourt [facility] .GLOMERULAR FILTRATION 2021-10-18 15:45:00 Deena Betancourt Un [facility] [place] RATE [facility] CALCIUM LEVEL TOTAL 2021-10-18 15:45:00 Deena [facility]ourt [facility] ALBUMIN LEVEL 2021-10-18 15:45:00 Deena Betancourt [facility] ALKALINE PHOSPHATASE 2021-10-18 15:45:[address] [facility] ALANINE AMINOTRANSFERASE 2021-10-18 15:45:00 Deena [facility] ASPARTATE AMINOTRANSFERASE 2021-10-18 15:45:00 Deena [facility] TOTAL PROTEIN 2021-10-18 15:45:00 Deena Betancourt [facility] FRACTIONATED BILIRUBIN 2021-10-18 15:45:00 Deena Betancourt [facility] ABORH 2021-10-18 15:45:00 Deena Betancourt [facility] ANTIBODY SCREEN 2021-10-18 15:45:00 Deena Betancourt [facility] CLOT EXPIRATION DATE 2021-10-18 15:45:[address] [facility] TMP INTERPRETATION 2021-10-18 15:45:00 Deena Betancourt [facility] ANTIBODY SCREEN NEGATIVE MD [facility] ASSIGNMENT OF BENEFITS 2021-10-17 20:24:03 Doctor Unassigned, Un [facility] ADENOVIRUS QUANTITATIVE, 2021-10-11 16:43:00 Van Wolf [facility] [place] PLASMA [facility] HHV6 QUANT, PLASMA 2021-10-11 16:43:00 Van Wolf [facility] COMPLETE BLOOD COUNT W/ 2021-10-11 16:43:00 Van Wolf [facility] DIFFERENTIAL [facility] TYPE AND SCREEN 2021-10-11 16:43:00 Van Wolf [facility] COMPREHENSIVE METABOLIC 2021-10-11 16:43:00 Van Wolf [facility] PANEL [facility] PHOSPHORUS LEVEL 2021-10-11 16:43:00 [facility] URIC ACID 2021-10-11 16:43:00 Van Wolf [facility] LACTATE DEHYDROGENASE 2021-10-11 16:43:00 Van Wolf [facility] MAGNESIUM LEVEL 2021-10-11 16:43:00 Van Wolf [place] [facility] CMV QUANT PCR 2021-10-11 16:43:00 Van Wolf [place] [facility] TACROLIMUS LEVEL 2021-10-11 16:43:00 [facility] Results CBC 2021-10-11 16:43:00 Van Wolf [place] [facility] MANUAL DIFFERENTIAL 2021-10-11 16:43:00 Van Wolf [facility] GLUCOSE LEVEL 2021-10-11 16:43:00 Van Wolf [place] [facility] BLOOD UREA NITROGEN 2021-10-11 16:43:00 Van Wolf [facility] ELECTROLYTE PANEL 2021-10-11 16:43:00 Van Wolf [facility] SERUM CREATININE 2021-10-11 16:43:00 Van [facility] .GLOMERULAR FILTRATION 2021-10-11 16:43:00 Van Wolf [facility] CALCIUM LEVEL TOTAL 2021-10-11 16:43:00 Van Wolf [facility] ALBUMIN LEVEL 2021-10-11 16:43:00 Van Wolf [place] [facility] ALKALINE PHOSPHATASE 2021-10-11 16:43:[address] [facility] ALANINE AMINOTRANSFERASE 2021-10-11 16:43:00 Van Wolf Uni [facility] ASPARTATE AMINOTRANSFERASE 2021-10-11 16:43:00 Van Wolf U niversJoint [facility] TOTAL PROTEIN 2021-10-11 16:43:00 Van Wolf [place] [facility] FRACTIONATED BILIRUBIN 2021-10-11 16:43:00 Van Wolf Unive rsJoint [facility] ABORH 2021-10-11 16:43:00 Van Wolf [place] [facility] ANTIBODY SCREEN 2021-10-11 16:43:00 Van Wolf [facility] Center CLOT EXPIRATION DATE 2021-10-11 16:43:[address] [facility] TMP INTERPRETATION 2021-10-11 16:43:00 Van Wolf [facility] ANTIBODY SCREEN NEGATIVE MD Cullen araujo [facility] CLOT EXPIRATION DATE 2021-10-09 20:21:00 Deena Betancourt [facility] COMPLETE BLOOD COUNT W/ 2021-10-09 16:17:00 [facility] COMPREHENSIVE METABOLIC 2021-10-09 16:17:00 [facility] PAN[facility] MAGNESIUM LEVEL 2021-10-09 16:17:00 Deena Betancourt [facility] TYPE AND SCREEN 2021-10-09 16:17:00 Deena Betancourt [facility] Results CBC 2021-10-09 16:17:00 Deena Betancourt [facility] MANUAL DIFFERENTIAL 2021-10-09 16:17:00 Deena [facility] GLUCOSE LEVEL 2021-10-09 16:17:00 Deena Betancourt [facility] BLOOD UREA NITROGEN 2021-10-09 16:17:00 Deena Betancourt [facility] ELECTROLYTE PANEL 2021-10-09 16:17:00 Deena Betancourt [facility] SERUM CREATININE 2021-10-09 16:17:00 [facility] .GLOMERULAR FILTRATION 2021-10-09 16:17:00 Deena Betancourt [facility] [place] RATE [facility] CALCIUM LEVEL TOTAL 2021-10-09 16:17:00 Deena Betancourt [facility] rsJoint [facility] ALBUMIN LEVEL 2021-10-09 16:17:00 Deena Betancourt [facility] ALKALINE PHOSPHATASE 2021-10-09 16:17:[address] [facility] ALANINE AMINOTRANSFERASE 2021-10-09 16:17:00 Deena [facility]ourt [facility] ASPARTATE AMINOTRANSFERASE 2021-10-09 16:17:00 Deena [facility]ourt [facility] TOTAL PROTEIN 2021-10-09 16:17:00 Deena Betancourt [facility] FRACTIONATED BILIRUBIN 2021-10-09 16:17:00 Deena Betancourt Un i[facility]Joint [facility] ANTIBODY SCREEN 2021-10-09 16:17:00 Deena Betancourt [facility] TMP INTERPRETATION 2021-10-09 16:17:00 Deena Betancourt [facility] ANTIBODY SCREEN NEGATIVE MD [facility] BONE MARROW TRANSPLANT 2021-10-09 16:17:00 Deena Betancourt Un iversity [facility] FORWARD [facility] BONE MARROW TRANSPLANT 2021-10-09 16:17:00 Deena Betancourt Un [facility]ity [facility] REVERSE [facility] TMP INTERPRETATION BMT 2021-10-09 16:17:00 Deena Betancourt Un iversity [facility] EXTERNAL PROVIDER RECORDS 2021-10-09 06:01:00 Doctor Unassigned, [facility] EXTERNAL PROVIDER RECORDS 2021-10-09 06:01:00 Doctor Unassigned, [facility] COMPLETE BLOOD COUNT W/ 2021-10-02 15:47:00 Deena Betancourt [facility] DIFFERENTIAL [facility] COMPREHENSIVE METABOLIC 2021-10-02 15:47:00 Deena Betancourt [facility] PANEL [facility] MAGNESIUM LEVEL 2021-10-02 15:47:00 Deena Betancourt [facility] TYPE AND SCREEN 2021-10-02 15:47:00 Deena Betancourt [facility] Results CBC 2021-10-02 15:47:00 Deena Betancourt [facility] MANUAL DIFFERENTIAL 2021-10-02 15:47:00 Deena Betancourt [facility] GLUCOSE LEVEL 2021-10-02 15:47:00 Deena Betancourt [facility] BLOOD UREA NITROGEN 2021-10-02 15:47:00 Deena Betancourt [facility] ELECTROLYTE PANEL 2021-10-02 15:47:[address] [facility] SERUM CREATININE 2021-10-02 15:47:00 Deena Betancourt [facility] .GLOMERULAR FILTRATION 2021-10-02 15:47:00 De[facility] CALCIUM LEVEL TOTAL 2021-10-02 15:47:00 Deena [facility]ourt [facility] ALBUMIN LEVEL 2021-10-02 15:47:00 Deena Betancourt [facility] ALKALINE PHOSPHATASE 2021-10-02 15:47:[address] [facility] ALANINE AMINOTRANSFERASE 2021-10-02 15:47:00 Deena [facility]ourt [facility] ASPARTATE AMINOTRANSFERASE 2021-10-02 15:47:00 Deena [facility]ourt [facility] TOTAL PROTEIN 2021-10-02 15:47:00 Deena Betancourt [facility] FRACTIONATED BILIRUBIN 2021-10-02 15:47:00 Deena Betancourt Un iversJoint [facility] ABORH 2021-10-02 15:47:00 Deena Betancourt [facility] ANTIBODY SCREEN 2021-10-02 15:47:00 Deena Betancourt [facility] TMP INTERPRETATION 2021-10-02 15:47:00 Deena Betancourt [facility] ANTIBODY SCREEN NEGATIVE MD [facility] CLOT EXPIRATION DATE 2021-10-02 15:47:00 Deena Betancourt [facility] JAIME [facility] COMPLETE BLOOD COUNT W/ 2021-09-27 16:38:00 Romeo [place] DIFFERENTIAL Jovanna JAIME [facility] Center TYPE AND SCREEN 2021-09-27 16:38:00 Romeo Mccall [facility] Nugent MD [facility] er Center COMPREHENSIVE METABOLIC 2021-09-27 16:38:00 Romeo [place] PANEL Jovanna JAIME [facility] Center PHOSPHORUS LEVEL 2021-09-27 16:38:00 Romeo Mccall [facility] Nugent MD [facility] [place] URIC ACID 2021-09-27 16:38:00 Romeo Mccallit y of [facility] Nugent MD [facility] Center LACTATE DEHYDROGENASE 2021-09-27 16:38:00 Romeo Mccall [facility] Nugent MD [facility] er Center MAGNESIUM LEVEL 2021-09-27 16:38:00 Romeo Mccall y of [facility] Nugent MD [facility] [place] CMV QUANT PCR 2021-09-27 16:38:00 Romeo Mccall [facility] Hor[facility] er Center TACROLIMUS LEVEL 2021-09-27 16:38:00 Romeo Mccall ty [facility] Horowitz [facility] Results CBC 2021-09-27 16:38:00 Romeo Mccall [facility] Nugent MD [facility] er Center MANUAL DIFFERENTIAL 2021-09-27 16:38:00 Romeo Mccall rsmillicent of [place] Nugent MD [facility] er Center GLUCOSE LEVEL 2021-09-27 16:38:00 Romeo Mccall [facility] Nugent MD [facility] Center BLOOD UREA NITROGEN 2021-09-27 16:38:00 Romeo Mccall [facility] Jovanna JAIME [facility] ELECTROLYTE PANEL 2021-09-27 16:38:00 Romeo Mccall [facility] Jovanna JAIME [facility] SERUM CREATININE 2021-09-27 16:38:00 Romeo Mccall [facility] Jovanna JAIME [facility] .GLOMERULAR FILTRATION 2021-09-27 16:38:00 Romeo [facility]ccall [facility] CALCIUM LEVEL TOTAL 2021-09-27 16:38:00 Romeo [facility]ccall [facility] Jovanna JAIME [facility] ALBUMIN LEVEL 2021-09-27 16:38:00 Romeo Mccall [facility] Jovanna JAIME [facility] ALKALINE PHOSPHATASE 2021-09-27 16:38:00 [facility] ALANINE AMINOTRANSFERASE 2021-09-27 16:38:00 Romeo Mccall [facility] Jovanna JAIME [facility] ASPARTATE AMINOTRANSFERASE 2021-09-27 16:38:00 Genny Mccall [facility] Jovanna JAIME [facility] TOTAL PROTEIN 2021-09-27 16:38:00 Romeo Mccall [facility] Jvoanna JAIME [facility] FRACTIONATED BILIRUBIN 2021-09-27 16:38:00 [facility]ovanna JAIME [facility] ABORH 2021-09-27 16:38:00 Romeo Mccall [facility] Jovanna JAIME [facility] ANTIBODY SCREEN 2021-09-27 16:38:00 Romeo Mccall [facility] Jovanna JAIME [facility] er [place] CLOT EXPIRATION DATE 2021-09-27 16:38:00 Romeo Mccall [facility] Jovanna JAIME [facility] TMP INTERPRETATION 2021-09-27 16:38:00 Romeo Mccall [facility] ANTIBODY SCREEN NEGATIVE Jovanna [facility] Cancer Center SPIROMETRY W/O DILATORS, 2021-09-24 20:05:08 Johanna Gonsalez [facility] [place] DLCO AND BODY [facility] PLETHSMOGRAPHIC LUNG Center VOLUMES COMPLETE BLOOD COUNT W/ 2021-09-24 15:59:00 Van Wolf [facility] DIFFERENTIAL [facility] COMPREHENSIVE METABOLIC 2021-09-24 15:59:00 Van Wolf [facility] PANEL [facility] MAGNESIUM LEVEL 2021-09-24 15:59:00 Van Wolf [place] [facility] Results CBC 2021-09-24 15:59:00 Van Wolf [place] [facility] Center MANUAL DIFFERENTIAL 2021-09-24 15:59:00 Van Wolf [facility] GLUCOSE LEVEL 2021-09-24 15:59:00 Van Wolf [place] [facility] BLOOD UREA NITROGEN 2021-09-24 15:59:00 Van Wolf [facility] ELECTROLYTE PANEL 2021-09-24 15:59:00 Van [facility] SERUM CREATININE 2021-09-24 15:59:00 Van Wolf [facility] Center .GLOMERULAR FILTRATION 2021-09-24 15:59:00 Van [facility] [place] RATE [facility] CALCIUM LEVEL TOTAL 2021-09-24 15:59:00 Van Wolf [facility] ALBUMIN LEVEL 2021-09-24 15:59:00 Van Wolf [place] [facility] Center ALKALINE PHOSPHATASE 2021-09-24 15:59:[address] [facility] ALANINE AMINOTRANSFERASE 2021-09-24 15:59:00 Van Wolf [facility] ASPARTATE AMINOTRANSFERASE 2021-09-24 15:59:00 Van Wolf U niversJoint [facility] TOTAL PROTEIN 2021-09-24 15:59:00 Van Wolf [place] [facility] FRACTIONATED BILIRUBIN 2021-09-24 15:59:00 Van Wolf [facility] BLOODCULTURE 2021-09-18 16:17:00 Cynthia [facility] COMPLETE BLOOD COUNT W/ 2021-09-18 16:14:00 Cynthia [facility] [place] DIFFERENTIAL [facility] COMPREHENSIVE METABOLIC 2021-09-18 16:14:00 Cynthia Centeno Un [facility] [place] PANEL [facility] MAGNESIUM LEVEL 2021-09-18 16:14:00 Cynthia [facility] LACTATE DEHYDROGENASE 2021-09-18 16:14:[address] [facility] URIC ACID 2021-09-18 16:14:00 Cynthia Cent[facility] PHOSPHORUS LEVEL 2021-09-18 16:14:00 Cynthia Centeno [facility] Results CBC 2021-09-18 16:14:00 Cynthia [facility] MANUAL DIFFERENTIAL 2021-09-18 16:14:00 Cynthia Centeno [facility] GLUCOSE LEVEL 2021-09-18 16:14:00 Cynthia Cent[facility] BLOOD UREA NITROGEN 2021-09-18 16:14:00 Cynthia Centeno [facility] ELECTROLYTE PANEL 2021-09-18 16:14:00 Cynthia Centeno [facility] SERUM CREATININE 2021-09-18 16:14:00 Cynthia Centeno [facility] .GLOMERULAR FILTRATION 2021-09-18 16:14:00 Cynthia Centeno [facility] [place] RATE [facility] CALCIUM LEVEL TOTAL 2021-09-18 16:14:00 Cynthia Centeno [facility] ALBUMIN LEVEL 2021-09-18 16:14:00 Cynthia Cent[facility] ALKALINE PHOSPHATASE 2021-09-18 16:14:00 Cynthia Centenoe rsJoint [facility] ALANINE AMINOTRANSFERASE 2021-09-18 16:14:00 Cynthia Centeno U niversJoint [facility] ASPARTATE AMINOTRANSFERASE 2021-09-18 16:14:00 Cynthia Centeno [facility] TOTAL PROTEIN 2021-09-18 16:14:00 Cynthia Centeno [facility] FRACTIONATED BILIRUBIN 2021-09-18 16:14:00 Cynthia Centeno Uni [facility] COMPLETE BLOOD COUNT W/ 2021-09-10 16:16:00 Deena Betancourt [facility] DIFFERENTIAL [facility] COMPREHENSIVE METABOLIC 2021-09-10 16:16:00 [facility] MAGNESIUM L[facility]EL 2021-09-10 16:16:00 Deena Betancourt [facility] TYPE AND SCREEN 2021-09-10 16:16:00 Deena Betancourt [facility] Results CBC 2021-09-10 16:16:00 Deena Betancourt [facility] MANUAL DIFFERENTIAL 2021-09-10 16:16:00 Deena Betancourt [facility] GLUCOSE LEVEL 2021-09-10 16:16:00 Deena Betancourt [facility] BLOOD UREA NITROGEN 2021-09-10 16:16:00 Deena Betancourt [facility] ELECTROLYTE PANEL 2021-09-10 16:16:[address] [facility] SERUM CREATININE 2021-09-10 16:16:00 Deena Betancourt [facility] .GLOMERULAR FILTRATION 2021-09-10 16:16:00 Deena Betancourt Un [facility] [place] RATE [facility] CALCIUM LEVEL TOTAL 2021-09-10 16:16:00 Deena Betancourt [facility] ALBUMIN LEVEL 2021-09-10 16:16:00 Deena Betancourt [facility] ALKALINE PHOSPHATASE 2021-09-10 16:16:[address] [facility] ALANINE AMINOTRANSFERASE 2021-09-10 16:16:00 Deena Betancourt [facility] ASPARTATE AMINOTRANSFERASE 2021-09-10 16:16:00 Deena [facility]ourt [facility] TOTAL PROTEIN 2021-09-10 16:16:00 Deena Betancourt [facility] FRACTIONATED BILIRUBIN 2021-09-10 16:16:00 Deena Betancourt Un [facility]Joint [facility] ABORH 2021-09-10 16:16:00 Deena Betancourt [facility] ANTIBODY SCREEN 2021-09-10 16:16:00 Deena Betancourt [facility] CLOT EXPIRATION DATE 2021-09-10 16:16:[address] [facility] TMP INTERPRETATION 2021-09-10 16:16:00 Deena Betancourt [facility] ANTIBODY SCREEN NEGATIVE MD [facility] HHV6 QUANT, PLASMA 2021-09-06 19:28:00 Jaleel Duque [facility] ADENOVIRUS QUANTITATIVE, 2021-09-06 19:28:00 [facility] PLASMA MD Carlos Manuel Canc er Center COMPLETE BLOOD COUNT W/ 2021-09-06 19:28:00 Neto [facility] DIFFERENTIAL [facility] TYPE AND SCREEN 2021-09-06 19:28:00 Neto [facility] COMPREHENSIVE METABOLIC 2021-09-06 19:28:00 Neto [facility] PANEL [facility] PHOSPHORUS LEVEL 2021-09-06 19:28:00 Neto [facility] URIC ACID 2021-09-06 19:28:00 Neto [facility] LACTATE DEHYDROGENASE 2021-09-06 19:28:00 Neto [facility] sity [facility] MAGNESIUM LEVEL 2021-09-06 19:28:00 Neto [facility] HP CARMELO-ADDISON VIRUS 2021-09-06 19:28:00 Neto [facility] QUANTITATIVE PCR ANALYSIS MD [facility] COLLECTION, BLOOD Center CMV QUANT PCR 2021-09-06 19:28:00 Neto [facility] TACROLIMUS LEVEL 2021-09-06 19:28:00 [facility] Results CBC 2021-09-06 19:28:00 Neto [facility] MANUAL DIFFERENTIAL 2021-09-06 19:28:00 Neto [facility] GLUCOSE LEVEL 2021-09-06 19:28:00 Neto [facility] BLOOD UREA NITROGEN 2021-09-06 19:28:00 Neto [facility] ELECTROLYTE PANEL 2021-09-06 19:28:00 Neto [facility] SERUM CREATININE 2021-09-06 19:28:00 Neto [facility] .GLOMERULAR FILTRATION 2021-09-06 19:28:00 Jaleel Duque [facility] RATE [facility] CALCIUM LEVEL TOTAL 2021-09-06 19:28:00 Jaleel Duque [facility] ALBUMIN LEVEL 2021-09-06 19:28:00 Neto [facility] ALKALINE PHOSPHATASE 2021-09-06 19:28:[address] [facility] ALANINE AMINOTRANSFERASE 2021-09-06 19:28:00 Jaleel Duque [facility] ASPARTATE AMINOTRANSFERASE 2021-09-06 19:28:00 [facility]el [facility] TOTAL PROTEIN 2021-09-06 19:28:00 Neto [facility] FRACTIONATED BILIRUBIN 2021-09-06 19:28:00 Jaleel [facility] ABORH 2021-09-06 19:28:00 Neto [facility] ANTIBODY SCREEN 2021-09-06 19:28:00 Neto [facility] HP CARMELO-ADDISON VIRUS 2021-09-06 19:28:00 Jaleel Duque [facility] QUANTITATIVE PCR ANALYSIS Cancer INTERPRETATION AND REPORT Center TMP INTERPRETATION 2021-09-06 19:28:00 Neto [facility] ANTIBODY SCREEN NEGATIVE MD [facility] CLOT EXPIRATION DATE 2021-09-06 19:28:[address] [facility] COMPLETE BLOOD COUNT W/ 2021-09-04 16:46:00 Deena [facility] [place] DIFFERENTIAL [facility] COMPREHENSIVE METABOLIC 2021-09-04 16:46:00 Deena [facility] [place] PANEL [facility] er [place] MAGNESIUM LEVEL 2021-09-04 16:46:00 Deena Betancourt [facility] Center TYPE AND SCREEN 2021-09-04 16:46:00 Deena Betancourt [facility] Results CBC 2021-09-04 16:46:00 Deena Betancourt [facility] MANUAL DIFFERENTIAL 2021-09-04 16:46:00 Deena Betancourt [facility] GLUCOSE LEVEL 2021-09-04 16:46:00 Deena Betancourt [facility] BLOOD UREA NITROGEN 2021-09-04 16:46:00 Deena Betancourt [facility] ELECTROLYTE PANEL 2021-09-04 16:46:[address] [facility] SERUM CREATININE 2021-09-04 16:46:00 Deena Betancourt [facility] .GLOMERULAR FILTRATION 2021-09-04 16:46:00 Deena Betancourt [facility] CALCIUM LEVEL TOTAL 2021-09-04 16:46:00 Deena [facility]ancourt [facility] ALBUMIN LEVEL 2021-09-04 16:46:00 Deena Betancourt [facility] ALKALINE PHOSPHATASE 2021-09-04 16:46:[address] [facility] ALANINE AMINOTRANSFERASE 2021-09-04 16:46:00 Deena [facility] ASPARTATE AMINOTRANSFERASE 2021-09-04 16:46:00 Deena [facility]ourt [facility] TOTAL PROTEIN 2021-09-04 16:46:00 Deena Betancourt [facility] FRACTIONATED BILIRUBIN 2021-09-04 16:46:00 Deena Betancourt Un [facility]Joint [facility] ABORH 2021-09-04 16:46:00 Deena Betancourt [facility] ANTIBODY SCREEN 2021-09-04 16:46:00 Deena Betancourt [facility] CLOT EXPIRATION DATE 2021-09-04 16:46:00 Deena [facility]ancourt [facility] TMP INTERPRETATION 2021-09-04 16:46:00 Deena Betancourt sittej [facility] ANTIBODY SCREEN NEGATIVE MD [facility]erman [facility] Center COMPLETE BLOOD COUNT W/ 2021-08-30 15:46:00 [facility] [place] DIFFERENTIAL [facility] COMPREHENSIVE METABOLIC 2021-08-30 15:46:00 [facility] PANEL [facility] MAGNESIUM LEVEL 2021-08-30 15:46:00 Deena Betancourt [facility] TYPE AND SCREEN 2021-08-30 15:46:00 Deena Betancourt [facility] ABORH 2021-08-30 15:46:00 Deena Betancourt [facility] ANTIBODY SCREEN 2021-08-30 15:46:00 Deena Betancourt [facility] Results CBC 2021-08-30 15:46:00 Deena Betancourt [facility] MANUAL DIFFERENTIAL 2021-08-30 15:46:00 Deena Betancourt [facility] GLUCOSE LEVEL 2021-08-30 15:46:00 Deena Betancourt [facility] BLOOD UREA NITROGEN 2021-08-30 15:46:00 Deena Betancourt [facility] ELECTROLYTE PANEL 2021-08-30 15:46:00 Deena Betancourt [facility] SERUM CREATININE 2021-08-30 15:46:00 [facility] .GLOMERULAR FILTRATION 2021-08-30 15:46:00 Deena Betancourt [facility] [place] RATE [facility] CALCIUM LEVEL TOTAL 2021-08-30 15:46:00 Deena Betancourt [facility] ALBUMIN LEVEL 2021-08-30 15:46:00 Deena Betancourt [facility] ALKALINE PHOSPHATASE 2021-08-30 15:46:[address] [facility] ALANINE AMINOTRANSFERASE 2021-08-30 15:46:00 Deena Betancourt [facility] ASPARTATE AMINOTRANSFERASE 2021-08-30 15:46:00 Deena Betancourt [facility] TOTAL PROTEIN 2021-08-30 15:46:00 Deena Betancourt [facility] FRACTIONATED BILIRUBIN 2021-08-30 15:46:00 Deena Betancourt i[facility] CLOT EXPIRATION DATE 2021-08-30 15:46:[address] [facility] TMP INTERPRETATION 2021-08-30 15:46:00 Deena Betancourt [facility] ANTIBODY SCREEN NEGATIVE MD [facility]erman [facility] CLOT EXPIRATION DATE 2021-08-21 21:12:[address] [facility] HHV6 QUANT, PLASMA 2021-08-21 16:33:00 Romeo Mccall [facility] ADENOVIRUS QUANTITATIVE, 2021-08-21 16:33:00 Romeo Mccall [facility] PLASMA Jovanna [facility] COMPLETE BLOOD COUNT W/ 2021-08-21 16:33:00 Deena Betancourt [facility] DIFFERENTIAL [facility] TYPE AND SCREEN 2021-08-21 16:33:00 Deena Betancourt [facility] COMPREHENSIVE METABOLIC 2021-08-21 16:33:00 Romeo Mccall [facility] PANEL Jovanna [facility] PHOSPHORUS LEVEL 2021-08-21 16:33:00 Romeo Mccall [facility] URIC ACID 2021-08-21 16:33:00 Romeo Mccall [facility] y [facility] Jovanna JAIME [facility] LACTATE DEHYDROGENASE 2021-08-21 16:33:00 Romeo Mccall [facility] [place] Jovanna JAIME [facility] MAGNESIUM LEVEL 2021-08-21 16:33:00 Romeo Mccall [facility] y [facility] Jovanna JAIME [facility] HP MD CARMELO-ADDISON VIRUS 2021-08-21 16:33:00 Romeo Mccall [facility] QUANTITATIVE PCR ANALYSIS Jovanna JAIME [facility] Cancer COLLECTION, BLOOD Center CMV QUANT PCR 2021-08-21 16:33:00 Romeo Mccall [facility] y [facility] Jovanna JAIME [facility] TACROLIMUS LEVEL 2021-08-21 16:33:00 Romeo Mccall ty [facility] Jovanna JAIME [facility] Results CBC 2021-08-21 16:33:00 Deena Betancourt [facility] MANUAL DIFFERENTIAL 2021-08-21 16:33:00 Deena Betancourt [facility] GLUCOSE LEVEL 2021-08-21 16:33:00 Romeo Mccall [facility] y [facility] Jovanna JAIME [facility] BLOOD UREA NITROGEN 2021-08-21 16:33:00 Romeo [facility]all [facility] Jovanna JAIME [facility] ANTIBODY SCREEN 2021-08-21 16:33:00 Deena Betancourt [facility] ELECTROLYTE PANEL 2021-08-21 16:33:00 Romeo Mccall [facility] [place] Jovanna JAIME [facility] SERUM CREATININE 2021-08-21 16:33:00 Romeo Mccall [facility] [place] Jovanna JAIME [facility] .GLOMERULAR FILTRATION 2021-08-21 16:33:00 Romeo Mccall Un iversmillicent [facility] RATE Jovanna JAIME [facility] CALCIUM LEVEL TOTAL 2021-08-21 16:33:00 Romeo Mccall [facility] [place] Jovanna JAIME [facility] ALBUMIN LEVEL 2021-08-21 16:33:00 Romeo Mccall [facility] Jovanna JAIME [facility] ALKALINE PHOSPHATASE 2021-08-21 16:33:00 Romeo Mccall [facility] Jovanna JAIME [facility] ALANINE AMINOTRANSFERASE 2021-08-21 16:33:00 Romeo Mccall [facility] Jovanna JAIME [facility] ASPARTATE AMINOTRANSFERASE 2021-08-21 16:33:00 Genny Mccall [facility] Jovanna JAIME [facility] TOTAL PROTEIN 2021-08-21 16:33:00 Romeo Mccall [facility] Jovanna JAIME [facility] FRACTIONATED BILIRUBIN 2021-08-21 16:33:[address] [facility] JAIME [facility] HP CARMELO-ADDISON VIRUS 2021-08-21 16:33:00 Romeo Mccall [facility] QUANTITATIVE PCR ANALYSIS Jovanna JAIME [facility] Cancer INTERPRETATION AND REPORT Center TMP INTERPRETATION 2021-08-21 16:33:00 Deena Betancourt [facility] ANTIBODY SCREEN NEGATIVE MD [facility] Cancer [place] BONE MARROW TRANSPLANT 2021-08-21 16:33:00 Deena Betancourt [facility] BONE MARROW TRANSPLANT 2021-08-21 16:33:00 Deena Beatncourt Un iversity [facility] REVERSE [facility] TMP INTERPRETATION BMT 2021-08-21 16:33:00 Deena Betancourt Un iversity [facility] SPIROMETRY W/O DILATORS, 2021-08-15 15:44:49 Romeo Mccall [facility] DLCO AND BODY Jovanna JAIME [facility] PLETHSMOGRAPHIC LUNG Center VOLUMES COMPLETE BLOOD COUNT W/ 2021-08-13 16:34:00 Deena Betancourt nivziyad [facility] DIFFERENTIAL [facility] COMPREHENSIVE METABOLIC 2021-08-13 16:34:00 Deena Betancourt n[facility] [place] PANEL [facility] MAGNESIUM LEVEL 2021-08-13 16:34:00 Deena Betancourt [facility] TYPE AND SCREEN 2021-08-13 16:34:00 Deena Betancourt [facility] Results CBC 2021-08-13 16:34:00 Deena Betancourt [facility] MANUAL DIFFERENTIAL 2021-08-13 16:34:00 Deena [facility]ourt [facility] GLUCOSE LEVEL 2021-08-13 16:34:00 Deena Betancourt [facility] BLOOD UREA NITROGEN 2021-08-13 16:34:00 Deena Betancourt [facility] ELECTROLYTE PANEL 2021-08-13 16:34:[address] [facility] SERUM CREATININE 2021-08-13 16:34:00 Deena Betancourt [facility] .GLOMERULAR FILTRATION 2021-08-13 16:34:00 Deena [facility]ancourt [facility] CALCIUM LEVEL TOTAL 2021-08-13 16:34:00 Deena Betancourt [facility] ALBUMIN LEVEL 2021-08-13 16:34:00 Deena Betancourt [facility] ALKALINE PHOSPHATASE 2021-08-13 16:34:[address] [facility] ALANINE AMINOTRANSFERASE 2021-08-13 16:34:00 Deena Betancourt [facility] ABORH 2021-08-13 16:34:00 Deena Betancourt [facility] ANTIBODY SCREEN 2021-08-13 16:34:00 Deena Betancourt [facility] ASPARTATE AMINOTRANSFERASE 2021-08-13 16:34:00 Deena [facility]ourt [facility] TOTAL PROTEIN 2021-08-13 16:34:00 Deena Betancourt [facility] FRACTIONATED BILIRUBIN 2021-08-13 16:34:00 Deena Betancourt [facility] CLOT EXPIRATION DATE 2021-08-13 16:34:00 Deena Betancourt [facility] TMP INTERPRETATION 2021-08-13 16:34:00 Deena Betancourt [facility] ANTIBODY SCREEN NEGATIVE MD [facility] XR CHEST 2 VW 2021-08-09 19:18:16 Romeo Mccall y [facility] Jovanna JAIME [facility] EKG, 12-LEAD (SCHEDULED) 2021-08-09 00:00:00 Tima Wise [facility] HHV6 QUANT, PLASMA 2021-08-07 17:10:00 Romeo Mccall [facility] Jovanna JAIME [facility] ADENOVIRUS QUANTITATIVE, 2021-08-07 17:10:00 Romeo Mccall [facility] PLASMA Jovanna JAIME [facility] HSV 1 & 2 QUANTITATIVE, 2021-08-07 17:10:00 [facility] Jovanna [facility] COMPLETE BLOOD COUNT W/ 2021-08-07 17:10:00 Romeo Mccall [facility] DIFFERENTIAL Jovanna JAIME [facility] TYPE AND SCREEN 2021-08-07 17:10:00 Romeo Mccall [facility] Jovanna JAIME [facility] COMPREHENSIVE METABOLIC 2021-08-07 17:10:00 Romeo Mccall nivziyad [facility] PANEL Jovanna JAIME [facility] PHOSPHORUS LEVEL 2021-08-07 17:10:00 Romeo Mccall ty [facility] Jovanna JAIME [facility] Center URIC ACID 2021-08-07 17:10:00 Romeo Mccall y [facility] Jovanna JAIME [facility] LACTATE DEHYDROGENASE 2021-08-07 17:10:00 Romeo Mccall [facility]millicent [facility] Jovanna JAIME [facility] MAGNESIUM LEVEL 2021-08-07 17:10:00 Romeo Mccall [facility] y [facility] Jovanna JAIME [facility] CMV QUANT PCR 2021-08-07 17:10:00 Romeo Mccall [facility] y Richard Nugent MD [facility] HP CARMELO-ADDISON VIRUS 2021-08-07 17:10:00 Romeo Mccall [facility] QUANTITATIVE PCR ANALYSIS Jovanna JAIME And audrey Cancer COLLECTION, BLOOD Center TACROLIMUS LEVEL 2021-08-07 17:10:00 Romoe Mccall [facility] ty [facility] Jovanna JAIME [facility] Results CBC 2021-08-07 17:10:00 Romeo Mccall [facility] y [facility] Jovanna JAIME [facility] Center MANUAL DIFFERENTIAL 2021-08-07 17:10:00 Romeo Mccall [facility] Jovanna JAIME [facility] GLUCOSE LEVEL 2021-08-07 17:10:00 Romeo Mccall [facility] Jovanna JAIME [facility] BLOOD UREA NITROGEN 2021-08-07 17:10:00 Romeo Mccall [facility] Jovanna JAIME [facility] ELECTROLYTE PANEL 2021-08-07 17:10:00 Romeo Mccall [facility] Jovanna JAIME [facility] SERUM CREATININE 2021-08-07 17:10:00 Romeo Mccall [facility] Jovanna JAIME [facility] .GLOMERULAR FILTRATION 2021-08-07 17:10:00 Romeo Mccall Un iversity [facility] MARIPOSA Nugent MD [facility] CALCIUM LEVEL TOTAL 2021-08-07 17:10:00 Romeo Mccall [facility] Jovanna JAIME [facility] ALBUMIN LEVEL 2021-08-07 17:10:00 Romeo Mccall [facility] Richard Nugent MD [facility] ALKALINE PHOSPHATASE 2021-08-07 17:10:00 Romeo Mccall [facility] Richard Nugent MD [facility] ALANINE AMINOTRANSFERASE 2021-08-07 17:10:00 Romeo Mccall [facility] Jovanna JAIME [facility] ASPARTATE AMINOTRANSFERASE 2021-08-07 17:10:00 Genny Mccall [facility] Jovanna JAIME [facility] TOTAL PROTEIN 2021-08-07 17:10:00 Romeo Mccall [facility] Jovanna JAIME [facility] FRACTIONATED BILIRUBIN 2021-08-07 17:10:00 [facility] JA[facility] Center ABORH 2021-08-07 17:10:00 Romeo Mccall [facility] Jovanna JAIME [facility] ANTIBODY SCREEN 2021-08-07 17:10:00 Romeo Mccall [facility] Jovanna JAIME [facility] HP CARMELO-ADDISON VIRUS 2021-08-07 17:10:00 Romeo Mccall [facility] QUANTITATIVE PCR ANALYSIS Jovanna JAIME And erstheresa Cancer INTERPRETATION AND REPORT Center CLOT EXPIRATION DATE 2021-08-07 17:10:00 Rome[facility]ovanna JAIME [facility] TMP INTERPRETATION 2021-08-07 17:10:00 Romeo Mccall [facility] ANTIBODY SCREEN NEGATIVE Jovanna JAIME [facility] Cancer Center CATHETER SITE CULTURE 2021-08-02 22:23:00 Romeo [facility]ccall [facility] Jovanna JAIME [facility] PHYSICIAN ORDERS 2021-08-01 06:01:00 Doctor Unassigned, [facility] IR TUNNELED CENTRAL VENOUS 2021-07-31 19:07:35 Cynthia Centeno [facility] CATHETER PLACEMENT [facility] COMPLETE BLOOD COUNT W/ 2021-07-31 16:48:00 Deena Betancourt [facility] DIFFERENTIAL [facility] COMPREHENSIVE METABOLIC 2021-07-31 16:48:00 [facility] PANEL [facility] MAGNESIUM LEVEL 2021-07-31 16:48:00 Deena Betancourt [facility] Center TYPE AND SCREEN 2021-07-31 16:48:00 Deena Betancourt [facility] Results CBC 2021-07-31 16:48:00 Deena Betancourt [facility] MANUAL DIFFERENTIAL 2021-07-31 16:48:00 [facility] GLUCOSE LEVEL 2021-07-31 16:48:00 Deena Betancourt [facility] BLOOD UREA NITROGEN 2021-07-31 16:48:00 Deena Betancourt [facility] ELECTROLYTE PANEL 2021-07-31 16:48:[address] [facility] SERUM CREATININE 2021-07-31 16:48:00 Deena Betancourt [facility] .GLOMERULAR FILTRATION 2021-07-31 16:48:00 [facility] CALCI[facility] TOTAL 2021-07-31 16:48:00 Deena Betancourt [facility] ALBUMIN LEVEL 2021-07-31 16:48:00 Deena Betancourt [facility] ALKALINE PHOSPHATASE 2021-07-31 16:48:[address] [facility] ALANINE AMINOTRANSFERASE 2021-07-31 16:48:00 Deena [facility]ourt [facility] ASPARTATE AMINOTRANSFERASE 2021-07-31 16:48:00 Deena [facility] TOTAL PROTEIN 2021-07-31 16:48:00 Deena Betancourt [facility] FRACTIONATED BILIRUBIN 2021-07-31 16:48:00 Deena Betancourt [facility] ABORH 2021-07-31 16:48:00 Deena Betancourt [facility] ANTIBODY SCREEN 2021-07-31 16:48:00 Deena Betancourt [facility] TMP INTERPRETATION 2021-07-31 16:48:00 Deena Betancourt [facility] ANTIBODY SCREEN NEGATIVE MD [facility] CLOT EXPIRATION DATE 2021-07-31 16:48:00 Deena Bet[facility]ourt [facility] [place] [facility] er Center PROTHROMBIN TIME 2021-07-30 16:50:00 Kimmy Shirley [facility] [place] [facility] Center COMPLETE BLOOD COUNT W/ 2021-07-26 14:15:00 Romeo Mccall [place] DIFFERENTIAL Jovanna JAIME [facility] Center TYPE AND SCREEN 2021-07-26 14:15:00 Romeo Mccall [place] Jovanna JAIME [facility] er [place] COMPREHENSIVE METABOLIC 2021-07-26 14:15:00 Romeo Mccall [facility] PANEL Jovanna JAIME [facility] PHOSPHORUS LEVEL 2021-07-26 14:15:00 Romeo Mccall [facility] [place] Jovanna JAIME [facility] URIC ACID 2021-07-26 14:15:00 Romeo Mccall [place] [facility] [place] Jovanna JAIME [facility] LACTATE DEHYDROGENASE 2021-07-26 14:15:00 Romeo Mccall [facility] [place] Jovanna JAIME [facility] Center MAGNESIUM LEVEL 2021-07-26 14:15:00 Romeo Mccall [place] [facility] [place] Jovanna JAIME [facility] Results CBC 2021-07-26 14:15:00 Romeo Mccall [facility] [place] Jovanna JAIME [facility] Center MANUAL DIFFERENTIAL 2021-07-26 14:15:00 [facility] [place] Jovanna JAIME [facility] Center GLUCOSE LEVEL 2021-07-26 14:15:00 [facility]ccall [facility] [place] Jovanna JAIME [facility] Center BLOOD UREA NITROGEN 2021-07-26 14:15:00 Romeo [facility] [place] Jovanna JAIME [facility] er Center ELECTROLYTE PANEL 2021-07-26 14:15:00 Romeo Mccall [facility] [place] Jovanna JAIME [facility] Center SERUM CREATININE 2021-07-26 14:15:00 Romeo Mccall [facility] [place] Jovanna [facility] .GLOMERULAR FILTRATION 2021-07-26 14:15:00 Rome[facility] CALCIUM LEVEL TOTAL 2021-07-26 14:15:[address] [facility] ALBUMIN LEVEL 2021-07-26 14:15:00 [facility] ALKALINE PHOSPHATASE 2021-07-26 14:15:00 Romeo Mccall [facility] ALANINE AMINOTRANSFERASE 2021-07-26 14:15:00 Romeo Mccall [facility] ASPARTATE AMINOTRANSFERASE 2021-07-26 14:15:00 Genny Mccall [facility] TOTAL PROTEIN 2021-07-26 14:15:00 [facility] FRACTIONATED BILIRUBIN 2021-07-26 14:15:00 Romeo [facility]cc[facility]H 2021-07-26 14:15:00 [facility] ANTIBODY SCREEN 2021-07-26 14:15:00 Romeo Mccall [facility] CLOT EXPIRATION DATE 2021-07-26 14:15:00 Provider, Fadi [facility] TMP INTERPRETATION 2021-07-26 14:15:00 Romeo Mccall [facility] ANTIBODY SCREEN NEGATIVE Jovanna [facility] Cancer Center HOLTER MONITOR - 48 HOUR 2021-07-16 00:00:00 Ibrahima Ruano [facility] COMPLETE BLOOD COUNT W/ 2021-06-30 05:45:00 Leslie Reich [facility] DIFFERENTIAL E [facility] BASIC METABOLIC PANEL, 2021-06-30 05:45:00 Leslie Reich [facility] CALCIUM TOTAL E [facility] TYPE AND SCREEN 2021-06-30 05:45:00 Leslie Reich [facility] E [facility] ABORH 2021-06-30 05:45:00 Leslie Reich [facility] E [facility] ANTIBODY SCREEN 2021-06-30 05:45:00 Leslie Reich [facility] E [facility] GLUCOSE LEVEL 2021-06-30 05:45:00 Leslie Reich [facility] E [facility] BLOOD UREA NITROGEN 2021-06-30 05:45:00 Leslie Reich [facility] E [facility] ELECTROLYTE PANEL 2021-06-30 05:45:00 Leslie Reich [facility] E [facility] SERUM CREATININE 2021-06-30 05:45:00 Leslie Reich [facility] E [facility] .GLOMERULAR FILTRATION 2021-06-30 05:45:00 Leslie Reich [facility] RATE E [facility] CALCIUM LEVEL TOTAL 2021-06-30 05:45:00 Leslie Reich [facility] E [facility] Results CBC 2021-06-30 05:45:00 Leslie Reich [facility] E [facility] MANUAL DIFFERENTIAL 2021-06-30 05:45:00 Leslie Reich [facility] E [facility] CLOT EXPIRATION DATE 2021-06-30 05:45:[address] [facility] TMP INTERPRETATION 2021-06-30 05:45:00 Leslie Reich [facility] ANTIBODY SCREEN NEGATIVE E MD [facility] COMPLETE BLOOD COUNT W/ 2021-06-29 10:40:00 Leslie Reich [facility] DIFFERENTIAL E [facility] COMPREHENSIVE METABOLIC 2021-06-29 10:40:00 Leslie Reich [facility] PANEL E [facility] PHOSPHORUS LEVEL 2021-06-29 10:40:00 Leslie Reich [facility] E [facility] MAGNESIUM LEVEL 2021-06-29 10:40:00 Leslie Reich [facility] E [facility] URIC ACID 2021-06-29 10:40:00 Leslie Reich [facility] E [facility] LACTATE DEHYDROGENASE 2021-06-29 10:40:00 Leslie Reich [facility] E [facility] Results CBC 2021-06-29 10:40:00 Leslie Reich [facility] E [facility] MANUAL DIFFERENTIAL 2021-06-29 10:40:00 Leslie Reich [facility] GLUCOSE LEVEL 2021-06-29 10:40:00 Leslie Reich [facility] E [facility] BLOOD UREA NITROGEN 2021-06-29 10:40:00 Leslie Reich [facility] ELECTROLYTE PANEL 2021-06-29 10:40:00 Leslie Reich [facility] E [facility] SERUM CREATININE 2021-06-29 10:40:00 Leslie Reich [facility] E [facility] .GLOMERULAR FILTRATION 2021-06-29 10:40:00 Leslie Reich [facility] RATE E [facility] CALCIUM LEVEL TOTAL 2021-06-29 10:40:00 Leslie Reich [facility] E [facility] ALBUMIN LEVEL 2021-06-29 10:40:00 Leslie Reich [facility] E [facility] ALKALINE PHOSPHATASE 2021-06-29 10:40:00 Leslie Reich [facility] E [facility] ALANINE AMINOTRANSFERASE 2021-06-29 10:40:00 Leslie Reich [facility] ASPARTATE AMINOTRANSFERASE 2021-06-29 10:40:00 Gorge Reich [facility] E [facility] TOTAL PROTEIN 2021-06-29 10:40:00 Leslie Reich [facility] E [facility] FRACTIONATED BILIRUBIN 2021-06-29 10:40:00 Leslie Reich [facility] E [facility] EKG, 12-LEAD (PORTABLE) 2021-06-29 00:00:[address] [facility] MRI BRAIN W WO CONTRAST 2021-06-28 21:25:00 Leslie Reich [facility] E [facility] PATHOLOGY BIOPSY 2021-06-28 13:49:00 Shanon Weldon [facility] INTERPRETATION [facility] ENDOSCOPY NOTE RESULTS 2021-06-28 13:35:31 Shanon Weldon [facility] UPPER GASTROINTESTINAL 2021-06-28 13:26:00 Shanon Weldon [facility] ENDOSCOPY OF ESOPHAGUS, Mario Alberto son Cancer STOMACH, AND DUODENUM WITH Cente r BIOPSY TACROLIMUS LEVEL 2021-06-28 12:32:00 Shad Chambers [facility] VRE CULTURE 2021-06-28 11:51:00 Leslie Reich [facility] E [facility] COMPLETE BLOOD COUNT W/ 2021-06-28 08:10:00 Leslie Reich [facility] DIFFERENTIAL [facility] BASIC METABOLIC PANEL, 2021-06-28 08:10:00 Leslie Reich [facility] CALCIUM TOTAL [facility] CMV QUANT PCR 2021-06-28 08:10:00 Leslie Reich [facility] E [facility] GLUCOSE LEVEL 2021-06-28 08:10:00 Leslie Reich [facility] E [facility] BLOOD UREA NITROGEN 2021-06-28 08:10:00 Leslie Reich [facility] E [facility] ELECTROLYTE PANEL 2021-06-28 08:10:00 Leslie Reich [facility] E [facility] SERUM CREATININE 2021-06-28 08:10:00 Leslie Reich [facility] .GLOMERULAR FILTRATION 2021-06-28 08:10:00 [facility] CALCIUM LEVEL TOTAL 2021-06-28 08:10:00 Leslie Reich [facility] Results CBC 2021-06-28 08:10:00 Leslie Reich [facility] MANUAL DIFFERENTIAL 2021-06-28 08:10:00 Leslie Reich [facility] E [facility] COMPLETE BLOOD COUNT W/ 2021-06-27 11:14:00 Leslie Reich [facility] DIFFERENTIAL [facility] COMPREHENSIVE METABOLIC 2021-06-27 11:14:00 Leslie Reich [facility] PANEL [facility] PHOSPHORUS LEVEL 2021-06-27 11:14:00 Leslie Reich [facility] MAGNESIUM LEVEL 2021-06-27 11:14:00 Leslie Reich [facility] URIC ACID 2021-06-27 11:14:00 Leslie Reich [facility] LACTATE DEHYDROGENASE 2021-06-27 11:14:00 [facility] PROT[facility] TIME 2021-06-27 11:14:00 Leslie Reich [facility] APTT 2021-06-27 11:14:00 Leslie Reich [facility] Center TYPE AND SCREEN 2021-06-27 11:14:00 Leslie Reich [facility] ABORH 2021-06-27 11:14:00 Leslie Reich [facility] ANTIBODY SCREEN 2021-06-27 11:14:00 Leslie Reich [facility] ty [facility] Results CBC 2021-06-27 11:14:00 Leslie Reich [facility] MANUAL DIFFERENTIAL 2021-06-27 11:14:00 Leslie Reich [facility] GLUCOSE LEVEL 2021-06-27 11:14:00 Leslie Reich [facility] BLOOD UREA NITROGEN 2021-06-27 11:14:00 Leslie Reich [facility] ELECTROLYTE PANEL 2021-06-27 11:14:00 Leslie Reich [facility] SERUM CREATININE 2021-06-27 11:14:00 Leslie Reich [facility] .GLOMERULAR FILTRATION 2021-06-27 11:14:00 Leslie Reich [facility] RATE [facility] CALCIUM LEVEL TOTAL 2021-06-27 11:14:00 Leslie Reich [facility] ALBUMIN LEVEL 2021-06-27 11:14:00 Leslie Reich [facility] ALKALINE PHOSPHATASE 2021-06-27 11:14:00 Leslie Reich [facility] ALANINE AMINOTRANSFERASE 2021-06-27 11:14:00 Leslie Reich [facility] ASPARTATE AMINOTRANSFERASE 2021-06-27 11:14:00 Gorge Reich [facility] TOTAL PROTEIN 2021-06-27 11:14:00 Leslie Reich [facility] FRACTIONATED BILIRUBIN 2021-06-27 11:14:00 Leslie Reich [facility] CLOT EXPIRATION DATE 2021-06-27 11:14:00 Shad Chambers [facility] TMP INTERPRETATION 2021-06-27 11:14:00 Leslie Reich [facility] ANTIBODY SCREEN NEGATIVE MD [facility] Cancer Center VRE CULTURE 2021-06-26 23:37:00 Leslie Reich [facility] E [facility] TACROLIMUS LEVEL 2021-06-26 11:32:00 Severo [facility] TACROLIMUS LEVEL 2021-06-25 11:52:00 Severo [facility] COMPLETE BLOOD COUNT W/ 2021-06-25 11:52:00 Severo [facility] DIFFERENTIAL [facility] BASIC METABOLIC PANEL, 2021-06-25 11:52:00 Severo James [facility] CALCIUM TOTAL [facility] MAGNESIUM LEVEL 2021-06-25 11:52:00 [facility] PHOS[facility] 2021-06-25 11:52:00 Severo [facility] Results CBC 2021-06-25 11:52:00 Severo [facility] MANUAL DIFFERENTIAL 2021-06-25 11:52:00 Severo [facility] GLUCOSE LEVEL 2021-06-25 11:52:00 Severo [facility] BLOOD UREA NITROGEN 2021-06-25 11:52:00 Severo James [facility] ELECTROLYTE PANEL 2021-06-25 11:52:00 Severo [facility] SERUM CREATININE 2021-06-25 11:52:00 Severo [facility] .GLOMERULAR FILTRATION 2021-06-25 11:52:00 James [facility]kins [facility] RATE [facility] CALCIUM LEVEL TOTAL 2021-06-25 11:52:00 Severo [facility] CT VENOGRAM BRAIN 2021-06-25 10:41:07 Kelby [facility] BLOODCULTURE 2021-06-25 04:01:00 Severo [facility] TOPIRAMATE LEVEL, SERUM 2021-06-25 04:01:00 Severo, James [facility] CT HEAD WO CONTRAST 2021-06-25 01:47:23 James Elkins [facility] INFLUENZA A/B + COVID-19 2021-06-25 01:34:00 James Elkins [facility] ASYMPTOMATIC-L [facility] COMPLETE BLOOD COUNT W/ 2021-06-25 01:34:00 James Elkins [facility] DIFFERENTIAL [facility] COMPREHENSIVE METABOLIC 2021-06-25 01:34:00 Severo [facility] PANEL [facility] MAGNESIUM LEVEL 2021-06-25 01:34:00 Severo [facility] PHOSPHORUS LEVEL 2021-06-25 01:34:00 Severo [facility] Center LIPASE LEVEL 2021-06-25 01:34:00 Severo [facility] Center LACTATE DEHYDROGENASE 2021-06-25 01:34:00 James Elkins [facility] Results CBC 2021-06-25 01:34:00 Severo [facility] MANUAL DIFFERENTIAL 2021-06-25 01:34:00 Severo James [facility] GLUCOSE LEVEL 2021-06-25 01:34:00 Severo [facility] Center BLOOD UREA NITROGEN 2021-06-25 01:34:00 Severo James [facility] ELECTROLYTE PANEL 2021-06-25 01:34:00 Severo [facility] Center SERUM CREATININE 2021-06-25 01:34:00 Severo [facility] .GLOMERULAR FILTRATION 2021-06-25 01:34:00 James Elkins [facility] [place] RATE [facility] CALCIUM LEVEL TOTAL 2021-06-25 01:34:[address] [facility] Center ALBUMIN LEVEL 2021-06-25 01:34:00 James Elkins [place] [facility] ALKALINE PHOSPHATASE 2021-06-25 01:34:00 James Elkins [facility] ity [facility] ALANINE AMINOTRANSFERASE 2021-06-25 01:34:00 James Elkins [facility] ASPARTATE AMINOTRANSFERASE 2021-06-25 01:34:00 James Elkins [facility] TOTAL PROTEIN 2021-06-25 01:34:00 Severo James [place] [facility] FRACTIONATED BILIRUBIN 2021-06-25 01:34:00 James Elkins [facility] Injection 2017-07-18 05:00:00 [facility] arredondo Lumbar epidural 2017-04-18 05:00:00 [facility] arredondo block<sup>1</sup> Injection of facet joint 2017-03-28 05:00:00 Jovany orimichael Miguel Sling procedure of bladder 2015-09-22 00:00:00 Ministerio Miguel neck<sup>2</sup> Hip replacement<sup>3, 2014-09-22 00:00:00 Elmer Miguel 4</sup> Hip 2013-09-22 00:00:00 [facility] Her arredondo replacement<sup>5</sup> Insertion of infusion 2007-09-22 00:00:00 Lito Pérez pump<sup>6</sup> Carpal tunnel release 2005-09-22 00:00:00 Lito Pérez Tonsillectomy 1965-09-22 00:00:00 [facility] arredondo Plan of Care Planned Activity Planned Date Details Comments Source Future Scheduled 2022-08-30 COVID-19 Vaccination [facility] Test 08:07:09 (2 - Sofia risk MD [facility] Cancer series) [code = Center COVID-19 Vaccination (2 - Sofia risk series)] Future Scheduled 2022-08-27 Pneumococcal Vaccine: [facility] Test 13:08:06 Pediatrics (0 to 5 Years) and At-Risk Patients (6 to 64 Years) (1 - PCV) [code = Pneumococcal Vaccine: Pediatrics (0 to 5 Years) and At-Risk Patients (6 to 64 Years) (1 - PCV)] Future Scheduled 2022-08-27 Hepatitis C screening [facility] Test 13:08:06 (procedure) [code = 655449968] Future Scheduled 2022-08-27 SHINGLES VACCINES (1 Met [facility] Test 13:08:06 of 2) [code = SHINGLES VACCINES (1 of 2)] Future Scheduled 2022-08-27 Screening for [facility] Test 13:08:06 malignant neoplasm of cervix (procedure) [code = [id number]] Future Scheduled 2022-08-27 BREAST CANCER [facility] Test 13:08:06 SCREENING [code = BREAST CANCER SCREENING] Future Scheduled 2022-08-27 COLONOSCOPY SCREENING [facility] Test 13:08:06 [code = COLONOSCOPY SCREENING] Future Scheduled 2022-08-27 COVID-19 VACCINE (3 - [facility] Test 13:08:06 Booster for Sofia series) [code = COVID-19 VACCINE (3 - Booster for Sofia series)] Future Scheduled 2022-08-27 INFLUENZA VACCINE [facility] Test 13:08:06 [code = INFLUENZA VACCINE] Future Scheduled 2022-06-19 Pneumococcal Vaccine: [facility] Test 10:47:25 Pediatrics (0 to 5 Years) and At-Risk Patients (6 to 64 Years) (1 - PCV) [code = Pneumococcal Vaccine: Pediatrics (0 to 5 Years) and At-Risk Patients (6 to 64 Years) (1 - PCV)] Future Scheduled 2022-06-19 Hepatitis C screening [facility] Test 10:47:25 (procedure) [code = 762617914] Future Scheduled 2022-06-19 SHINGLES VACCINES (1 Met [facility] Test 10:47:25 of 2) [code = SHINGLES VACCINES (1 of 2)] Future Scheduled 2022-06-19 Screening for [facility] Test 10:47:25 malignant neoplasm of cervix (procedure) [code = 179411994] Future Scheduled 2022-06-19 BREAST CANCER [facility] Test 10:47:25 SCREENING [code = BREAST CANCER SCREENING] Future Scheduled 2022-06-19 COLONOSCOPY SCREENING [facility] Test 10:47:25 [code = COLONOSCOPY SCREENING] Future Scheduled 2022-06-19 COVID-19 VACCINE (3 - [facility] Test 10:47:25 Booster for Sofia series) [code = COVID-19 VACCINE (3 - Booster for Sofia series)] Future Scheduled 2022-06-19 INFLUENZA VACCINE [facility] Test 10:47:25 [code = INFLUENZA VACCINE] Future Scheduled 2022-06-18 COVID-19 Vaccination [facility] Test 13:14:52 (2 - Sofia risk MD Nia jimenez Cancer series) [code = Center COVID-19 Vaccination (2 - Sofia risk series)] Encounters Start End Encounter Admission Attending Care Care Encounter Source Date/Time Date/Time Type Type Clinicians Facility Department ID 2022-07-24 Outpatient [facility] [id number] [place] 06:28:46 [id number] [facility] 2022-06-19 Outpatient [facility] [id number] [place] 10:47:01 [id number] [facility] 2022-06-18 Outpatient [facility] [id number] [place] 11:46:19 [id number] [facility] 2022-06-14 Outpatient [facility] [id number] [place] 00:05:13 [id number] [facility] 2022-06-13 Outpatient [facility] [id number] [place] 14:05:32 [id number] [facility] 2021-11-07 Outpatient SYSTEM, [facility] KAE [id number] 12:22:20 PROVIDER Surinder o barbara 2021-04-06 Outpatient SYSTEM, [facility] [id number] 15:10:47 PROVIDER Surinder o barbara 2020-03-30 Outpatient [facility] [id number] 14:50:07 Anderso n 2020-03-28 Outpatient [facility] [id number] 15:31:15 Anderso barbara 2020-03-27 Outpatient [facility] [id number] 12:12:05 Anderso barbara 2022-08-27 2022-08-27 [facility], .2.840.1 [id number] [facility] 11:30:00 23:59:00 Encounter [place] 68984.1.1 it y of 3.412.2.7 [place] .3.870258 .8 [facility] 2022-08-27 2022-08-27 Outpatient [facility] KAE [id number] 11:30:00 23:59:00 VAN Surinder jimenez 2022-08-27 2022-08-27 Follow-Up Sadi, 1.2.840.1 [id number] Univers 13:30:00 13:59:12 [place] 15451.1.1 ity of 3.412.2.7 [place] .3.721460 MD Rojas [facility] 2022-08-27 2022-08-27 Outpatient MACK WOLF [facility] [id number] 13:06:45 13:59:12 VAN jimenez 2022-08-27 2022-08-27 [facility], 1.2.840.1 [id number] Univers 13:00:00 13:15:00 Procedure Juan 90849.1.1 it y of [place] 3.412.2.7 [place] .3.901015 MD Renteria8 [facility] 2022-08-27 2022-08-27 Outpatient MACK MACHADO [facility] [id number] 12:22:35 12:22:35 JUAN jimenez 2022-08-27 2022-08-27 Documentat Facciolli, 1.2.840.1 [id number] Univers 00:00:00 00:00:00 ion Hanna Watters 76409.1.1 ity of 3.412.2.7 [place] .3.743948 MD Rojas [facility] 2022-08-27 2022-08-27 Travel 1.2.840.1 1.2.625.334 [id number] Univers 00:00:00 00:00:00 03861.1.1 350.1.13.41 ity of 3.412.2.7 [place].3.698 [place]3.8064[place] 084.8 MD [facility] 2022-08-08 2022-08-08 [facility] 1.2.840.1 [id number] Univers 11:14:07 23:59:00 Encounter [place] 88503.1.1 it y of 3.412.2.7 [place] .3.971672 MD Rojas [facility] 2022-08-08 2022-08-08 Outpatient MACK WOLF [facility] MDA [id number] MD 11:14:07 23:59:00 VANDuong marinelli barbara 2022-08-08 2022-08-08 Follow-Up Sadi 1.2.840.1 [id number] [facility] 13:00:00 13:46:23 [place] 60212.1.1 ity of 3.412.2.7 [place] .3.408381 .8 [facility] 2022-08-08 2022-08-08 Outpatient MACK WOLF [facility] MDA [id number] MD 11:31:01 13:46:23 VAN Surinder isis jimenez 2022-08-08 2022-08-08 Ancillary Sadi, 1.2.840.1 [id number] [facility] 10:20:00 10:40:00 Procedure [place] 13033.1.1 it y of 3.412.2.7 [place] .3.239188 .Inez [facility] 2022-08-08 2022-08-08 Outpatient MACK WOLF [facility] [id number] MD 10:11:18 10:11:18 VAN Surinder isis jimenez 2022-08-08 2022-08-08 Travel 1.2.840.1 1.2.961.858 1086 [id number] [facility] 00:00:00 00:00:00 26040.1.1 350.1.13.41 ity of 3.412.2.7 [place]7.3.698 [place] .3.072308 084.8 MD Renteria8 [facility] [place] 2022-08-01 2022-08-01 Outpatient [facility] [id number] [place] 13:45:00 14:30:12 [facility] 2022-07-30 2022-07-30 [facility], 1.2.840.1 [id number] [facility] 09:39:01 23:59:00 Encounter Juan 76268.1.1 it y of [place] 3.412.2.7 [place] .3.920363 MD Renteria8 [facility] [place] 2022-07-30 2022-07-30 Outpatient MACK MACHADO [facility] MDA [id number] MD 09:39:01 23:59:00 JUAN jimenez 2022-07-30 2022-07-30 [facility] Sadi, 1.2.840.1 [id number] [facility] 16:00:00 16:30:00 ne [place] 51080.1.1 ity of 3.412.2.7 [place] .3.027242 .8 [facility] 2022-07-30 2022-07-30 Outpatient MACK WOLF [facility] MDA [id number] 08:05:51 08:05:51 VAN jimenez 2022-07-25 2022-07-25 [facility], 1.2.840.1 [id number] [facility] 11:30:00 23:59:00 Encounter [place] 15607.1.1 it y of 3.412.2.7 [place] .3.241990 .8 [facility] 2022-07-25 2022-07-25 Outpatient MACK WOLF [facility] MDA [id number] MD 11:30:00 23:59:00 VAN jimenez 2022-07-25 2022-07-25 [facility], 1.2.840.1 [id number] [facility] 16:30:00 17:00:00 lainey Dorado 55211.1.1 ity of 3.412.2.7 [place] .3.359859 MD Renteria8 [facility] 2022-07-25 2022-07-25 Outpatient [facility] [id number] [place] 10:45:00 10:45:00 [facility] 2022-07-25 2022-07-25 Outpatient MACK WOLF KAE MDA [id number] MD 08:09:48 08:09:48 VAN jimenez 2022-07-16 2022-07-16 [facility] [place] 1.2.840.1 [id number] [facility] 14:03:47 23:59:00 Encounter Melissa Keys 87785.1.1 ity of 3.412.2.7 [place] .3.260448 MD Renteria8 [facility] [place] 2022-07-16 2022-07-16 Outpatient SADI [facility] [id number] 14:03:47 23:59:00 VAN jimenez 2022-07-16 2022-07-16 [facility], 1.2.840.1 [id number] [facility] 10:36:52 14:02:00 Encounter [place] 15276.1.1 it y of 3.412.2.7 [place] .3.190107 .8 [facility] 2022-07-16 2022-07-16 [facility] [id number] 10:36:52 14:02:00 VAN jimenez 2022-07-16 2022-07-16 [facility] 1.2.840.1 [id number] [facility] 13:30:00 13:52:13 Visit [place] 37439.1.1 ity of 3.412.2.7 [place] .3.068555 .8 [facility] 2022-07-16 2022-07-16 Outpatient SADI, MDA KAE [id number] 11:03:28 13:52:13 VAN jimenez 2022-07-16 2022-07-16 [facility], 1.2.840.1 [id number] [facility] 09:00:00 10:35:00 Encounter Deena Goldberg 76321.1.1 i ty of 3.412.2.7 [place] .3.089524 MD Renteria8 Nia jimenez [facility] 2022-07-16 2022-07-16 Outpatient [facility] [id number] 09:00:00 10:35:00 DEENA jimenez 2022-07-16 2022-07-16 [facility] Niya 1.2.840.1 [id number] [facility] 00:00:00 00:00:00 Only Deena M 31248.1.1 ity of 3.412.2.7 [place] .3.046276 MD Renteria8 [facility] 2022-07-16 2022-07-16 Travel 1.2.840.1 1.2.673.850 [id number] Univers 00:00:00 00:00:00 72905.1.1 350.1.13.41 ity of 3.412.2.7 [place]7.3.698 [place] .3.459570 084.8 MD Rojas [facility] 2022-07-11 2022-07-11 [facility] Brandon Semaj 1.2.840.1 [id number] [facility] 11:56:55 23:59:00 Encounter Elizabeth Allyson Duong 19453.1.1 ity of 3.412.2.7 [place] .3.404448 MD Renteria8 [facility] 2022-07-11 2022-07-11 Outpatient MACK BLEVINS [facility] [id number] 11:56:55 23:59:00 NALDO marinelli 2022-07-11 2022-07-11 [facility] Monty, 1.2.840.1 [id number] [facility] 10:48:20 11:55:00 Encounter Adriano 28136.1.1 it y of 3.412.2.7 [place] .3.300866 MD Renteria8 [facility] 2022-07-11 2022-07-11 Outpatient MACK MILLAN [facility] [id number] 10:48:20 11:55:00 ADRIANO jimenez 2022-07-11 2022-07-11 Travel 1.2.840.1 1.2.385.088 [id number] Univers 00:00:00 00:00:00 27263.1.1 350.1.13.41 ity of 3.412.2.7 [place]7.3.698 [place] .3.079708 084.8 MD Renteria8 [facility] 2022-07-05 2022-07-05 Nesha Castro 1.2.840.1 [id number] Univers 00:00:00 00:00:00 Rosanne 34040.1.1 ity of 3.412.2.7 [place] .3.258105 MD Renteria8 [facility] 2022-06-27 2022-06-27 Documentat Alexandra, 1.2.840.1 [id number] Univers 00:00:00 00:00:00 ion Hanna Watters 36667.1.1 ity of 3.412.2.7 [place] .3.161136 MD Renteria8 [facility] 2022-06-26 2022-06-26 Outpatient MACK IBARRA [facility] MDA [id number] 09:36:43 09:37:03 IBRAHIMA Berman [facility] 2022-06-26 2022-06-26 TelemedicIbrahima Ring 1.2.840.1 [id number] Univers 09:30:00 09:37:03 Radhames Charles 17718.1.1 ity of 3.412.2.7 [place] .3.243458 MD Renteria8 [facility] 2022-06-25 2022-06-25 Gemma Reed, 1.2.840.1 [id number] Univers 00:00:00 00:00:00 Only Latoya Romero 50038.1.1 it y of 3.412.2.7 [place] .3.796971 MD Renteria8 [facility] 2022-06-24 2022-06-24 Nesha Patten, 1.2.840.1 [id number] Univers 00:00:00 00:00:00 Lyndsay 98576.1.1 ity of 3.412.2.7 [place] .3.561464 MD Renteria8 [facility] 2022-06-21 2022-06-21 Documentat Billie, 1.2.840.1 [id number] Univers 00:00:00 00:00:00 ion Tima 06109.1.1 ity of 3.412.2.7 [place] .3.161484 MD Rojas [facility] [place] 2022-06-20 2022-06-20 [facility] Fred, 1.2.840.1 [id number] [facility] 12:55:07 23:59:00 Encounter Ibrahima 80422.1.1 ity of 3.412.2.7 [place] .3.027564 MD Renteria8 [facility] 2022-06-20 2022-06-20 Outpatient FRED [facility] [id number] [place] 12:55:07 23:59:00 IBRAHIMA Cullen [facility] 2022-06-20 2022-06-20 Telephone Fred 1.2.840.1 [id number] [facility] 00:00:00 00:00:00 Ibrahima 06159.1.1 it y of 3.412.2.7 [place] .3.083214 MD Renteria8 [facility] 2022-06-20 2022-06-20 Travel 1.2.840.1 1.2.007.440 [id number] [facility] 00:00:00 00:00:00 71606.1.1 350.1.13.41 ity of 3.412.2.7 2.[place]7.3.698 [place] .3.045249 084.8 MD Renteria8 [facility] 2022-06-19 2022-06-19 Office [facility] 1.2.840.114 [id number] [place] 10:00:00 11:25:20 Visit Fidelina KIRKLAND 350.1.13.58 H [facility] 9.2.7.2.686 PLAZA 1 [id number] 2022-06-19 2022-06-19 Outpatient [facility] [id number] [place] 00:00:00 11:25:12 Health 2022-06-13 2022-06-13 Telephone Bryanna Navarrete 1.2.840.1 [id number] [facility] 00:00:00 00:00:00 T 89341.1.1 ity of 3.412.2.7 [place] .3.834760 MD Rojas [facility] 2022-06-13 2022-06-13 Telephone Bryanna Navarrete 1.2.840.1 [id number] Univers 00:00:00 00:00:00 T 69042.1.1 ity of 3.412.2.7 [place] .3.089377 MD Rojas [facility] 2022-06-12 2022-06-12 Nesha Mccall, 1.2.840.1 [id number] Univers 00:00:00 00:00:00 Romeo 58762.1.1 ity of Jovanna 3.412.2.7 [place] .3Myra224515 MD Rojas [facility] 2022-06-12 2022-06-12 Nesha Mccall 1.2.840.1 [id number] Univers 00:00:00 00:00:00 Romeo 58661.1.1 ity of Jovanna 3.412.2.7 [place] .3Myra980644 MD Rojas [facility] 2022-05-31 2022-05-31 [id number] Univers 09:30:00 09:30:00 MARY [id number] ity [facility] 2022-05-31 2022-05-31 [facility] [id number] Univers 09:30:00 09:30:00 MARY ity [facility] 2022-05-30 2022-05-30 [facility], 1.2.840.1 [id number] Univers 13:00:00 23:59:00 Encounter Canelo 04309.1.1 it y of 3.412.2.7 [place] .3Qasim507674William Rojas [facility] 2022-05-30 2022-05-30 [facility], 1.2.840.1 [id number] Univers 13:00:00 23:59:00 Encounter Canelo 25471.1.1 it y of 3.412.2.7 [place] .3Qasim254835William Rojas [facility] 2022-05-30 2022-05-30 Office MonsejuanCanelo 1.2.840.1 [id number] Univers 14:30:00 16:00:46 Visit Johanna Gonsalez 84474.1.1 ity of 3.412.2.7 [place] .3.498029 MD Rojas [facility] 2022-05-30 2022-05-30 Office Canelo Myles 1.2.840.1 [id number] Univers 14:30:00 16:00:46 Visit Johanna Gonsalez 30421.1.1 ity of 3.412.2.7 [place] .3.400918 MD Rojas [facility] 2022-05-30 2022-05-30 Office Angie Garcia 1.2.840.1 [id number] Univers 14:15:00 14:42:18 Visit 09339.1.1 ity of 3.412.2.7 [place] .3.034975 MD Rojas [facility] 2022-05-30 2022-05-30 Office MACK GrahamduongAngie 1.2.840.1 [id number] Univers 14:15:00 14:42:18 Visit 99082.1.1 ity of 3.412.2.7 [place] .3.867897 MD Rojas [facility] 2022-05-30 2022-05-30 Travel 1.2.840.1 1.2.581.709 2748 [id number] Univers 00:00:00 00:00:00 50920.1.1 350.1.13.41 ity of 3.412.2.7 2.[place]7.3.698 [place] .3.541765 084.8 MD Rojas [facility] 2022-05-30 2022-05-30 Travel 1.2.840.1 1.2.929.089 2098 [id number] Univers 00:00:00 00:00:00 75242.1.1 350.1.13.41 ity of 3.412.2.7 2.2.7.3.698 [place] .3.821921 084.8 MD Renteria8 [facility] 2022-05-29 2022-05-29 Gemma Blevins, 1.2.840.1 [id number] Univers 00:00:00 00:00:00 Only Semaj 39603.1.1 ity of 3.412.2.7 [place] .3.308876 MD Renteria8 [facility] 2022-05-29 2022-05-29 Gemma Blevins, 1.2.840.1 [id number] Univers 00:00:00 00:00:00 Only Semaj 50177.1.1 ity of 3.412.2.7 [place] .3.117795 MD Rojas [facility] 2022-05-28 2022-05-28 [facility], 1.2.840.1 [id number] Univers 12:00:00 23:59:00 Encounter [place] 68816.1.1 it y of 3.412.2.7 [place] .3.310605 MD Rojas [facility] 2022-05-28 2022-05-28 [facility], 1.2.840.1 [id number] Univers 12:00:00 23:59:00 Encounter [place] 97026.1.1 it y of 3.412.2.7 [place] .3.588197 MD Rojas [facility] 2022-05-28 2022-05-[address] [facility], 1.2.840.1 [id number] Univers 14:00:00 14:00:00 Visit [place] 02720.1.1 ity of 3.412.2.7 [place] .3.933938 MD Rojas [facility] 2022-05-28 2022-05-28 [facility], 1.2.840.1 [id number] Univers 14:00:00 14:00:00 Visit [place] 53386.1.1 ity of 3.412.2.7 [place] .3.779215 MD Renteria8 [facility] 2022-05-28 2022-05-28 Travel 1.2.840.1 1.2.152.507 [id number] Univers 00:00:00 00:00:00 21702.1.1 350.1.13.41 ity of 3.412.2.7 2.2.7.3.698 [place] .3.006783 084.8 MD Renteria8 [facility] 2022-05-28 2022-05-28 Travel 1.2.840.1 1.2.827.260 5818 [id number] [facility] 00:00:00 00:00:00 20033.1.1 350.1.13.41 ity of 3.412.2.7 2.[place].7.3.698 [place] .3.756415 084.8 MD Rojas [facility] 2022-05-23 2022-05-23 [facility], 1.2.840.1 [id number] Univers 16:07:17 23:59:00 Encounter Ibrahima 51363.1.1 ity of 3.412.2.7 [place] .3.568432 MD Rojas [facility] 2022-05-23 2022-05-23 [facility], 1.2.840.1 [id number] Univers 16:07:17 23:59:00 Encounter Ibrahima 80847.1.1 ity of 3.412.2.7 [place] .3.067563 MD Rojas [facility] 2022-05-23 2022-05-23 Follow-Up Marely Coley 1.2.840.1 [id number] Univers 15:30:00 16:29:52 Ibrahima Ibarra 18473.1.1 ity of 3.412.2.7 [place] .3.784805 MD Rojas [facility] 2022-05-23 2022-05-23 Follow-Up Marely Guerrero 1.2.840.1 [id number] Univers 15:30:00 16:29:52 Ibrahima Ibarra 56444.1.1 ity of 3.412.2.7 [place] .3.486832 MD Rojas [facility] 2022-05-23 2022-05-23 Travel 1.2.840.1 1.2.075.778 8971 [id number] Univers 00:00:00 00:00:00 35649.1.1 350.1.13.41 ity of 3.412.2.7 2.2.7.3.698 [place] .3.734988 084.8 MD Renteria8 [facility] 2022-05-23 2022-05-23 Travel 1.2.840.1 1.2.040.173 1539 [id number] Univers 00:00:00 00:00:00 32391.1.1 350.1.13.41 ity of 3.412.2.7 2.2.7.3.698 [place] .3.552004 084.Inez Rojas [facility] 2022-04-29 2022-04-29 Documentat Facemeli, 1.2.840.1 [id number] Univers 00:00:00 00:00:00 america Watters 63045.1.1 ity of 3.412.2.7 [place] .3.322738 MD Rojas [facility] 2022-04-29 2022-04-29 Documentat Facciolli, 1.2.840.1 [id number] Univers 00:00:00 00:00:00 america Watters 52474.1.1 ity of 3.412.2.7 [place] .3.155880 MD Rojas [facility] 2022-04-05 2022-04-05 Nesha Castro, 1.2.840.1 [id number] Univers 00:00:00 00:00:00 Rosanne 60077.1.1 ity of 3.412.2.7 [place] .3.858276 MD Renteria8 [facility] 2022-04-05 2022-04-05 Gemma Mccall, 1.2.840.1 [id number] Univers 00:00:00 00:00:00 Only Romeo 90255.1.1 ity of Jovanna 3.412.2.7 [place] .3.187568 .8 [facility] 2022-04-05 2022-04-05 Nesha Castro, 1.2.840.1 [id number] Univers 00:00:00 00:00:00 Rosanne 64550.1.1 ity of 3.412.2.7 [place] .3.110940 .8 [facility] 2022-04-05 2022-04-05 Gemma Mccall, 1.2.840.1 [id number] Univers 00:00:00 00:00:00 Only Romeo 11593.1.1 ity of [place]anna 3.412.2.7 [place] .3.024192 .8 [facility] 2022-04-04 2022-04-04 Nesha Castro, 1.2.840.1 [id number] Univers 00:00:00 00:00:00 Rosanne 20445.1.1 ity of 3.412.2.7 [place] .3.887018 .8 [facility] 2022-04-04 2022-04-04 Nesha Castro, 1.2.840.1 [id number] Univers 00:00:00 00:00:00 Rosanne 60741.1.1 ity of 3.412.2.7 [place] .3.754062 MD Renteria8 [facility] 2022-04-04 2022-04-04 Nesha Castro, 1.2.840.1 [id number] Univers 00:00:00 00:00:00 Rosanne 40624.1.1 ity of 3.412.2.7 [place] .3.459686 .8 [facility] 2022-04-04 2022-04-04 [facility], 1.2.840.1 [id number] Univers 00:00:00 00:00:00 Rosanne 20467.1.1 ity of 3.412.2.7 [place] .3.670645 MD Rojas [facility] 2022-03-14 2022-03-14 [facility], 1.2.840.1 [id number] Univers 12:07:43 23:59:00 Encounter Lyndsay 43168.1.1 it y of 3.412.2.7 [place] .3.490968 MD Rojas [facility] 2022-03-14 2022-03-14 Hospital Patten, 1.2.840.1 [id number] Univers 12:07:43 23:59:00 Encounter Lyndsay 66443.1.1 it y of 3.412.2.7 [place] .3.662292 MD Rojas [facility] 2022-03-14 2022-03-14 Office Sadi, 1.2.840.1 [id number] Univers 16:00:00 16:00:00 Visit [place] 50434.1.1 ity of 3.412.2.7 [place] .3.992417 MD Rojas [facility] 2022-03-14 2022-03-14 Office MACK Wolf, 1.2.840.1 [id number] Univers 16:00:00 16:00:00 Visit [place] 07339.1.1 ity of 3.412.2.7 [place] .3.841118 MD Rojas [facility] 2022-03-14 2022-03-14 Travel 1.2.840.1 1.2.886.687 [id number] Univers 00:00:00 00:00:00 50063.1.1 350.1.13.41 ity of 3.412.2.7 2.[place].7.3.698 [place] .3.964261 084.8 MD Rojas [facility] 2022-03-14 2022-03-14 Telephone Marie, [facility] 1.2.229.317 [id number] [id number] Univers 00:00:00 00:00:00 Leatha JUARES 350.1.13.10 i ty of [place] 4.2.7.2.686 Ronel JUSTIN [id number] [place] [address] 2022-03-14 2022-03-14 Travel 1.2.840.1 1.2.763.764 5310 [id number] Univers 00:00:00 00:00:00 17557.1.1 350.1.13.41 ity of 3.412.2.7 [place].3.698 [place] .3.255859 084.8 MD Renteria8 [facility] 2022-03-11 2022-03-11 Nesha Patten, 1.2.840.1 [id number] Univers 00:00:00 00:00:00 Lyndsay 52080.1.1 ity of 3.412.2.7 [place] .3.941731 MD Renteria8 [facility] 2022-03-11 2022-03-11 Nesha Patten 1.2.840.1 [id number] Univers 00:00:00 00:00:00 Lyndsay 67929.1.1 ity of 3.412.2.7 [place] .3.656774 MD Renteria8 [facility] 2022-02-22 2022-02-22 Documentat Alexandra, 1.2.840.1 [id number] Univers 00:00:00 00:00:00 ion Izabella 71835.1.1 ity of 3.412.2.7 [place] .3.842640 MD Renteria8 [facility] 2022-02-22 2022-02-22 Documentat Faccifarhati, 1.2.840.1 [id number] Univers 00:00:00 00:00:00 ion Izabella 30062.1.1 ity of 3.412.2.7 [place] .3.793353 MD Renteria8 [facility] 2022-02-21 2022-02-21 [facility], 1.2.840.1 [id number] Univers 12:35:39 23:59:00 Encounter Marlen 21887.1.1 it y of 3.412.2.7 [place] .3Myra381078 MD Rojas [facility] 2022-02-21 2022-02-21 [facility], 1.2.840.1 [id number] Univers 12:35:39 23:59:00 Encounter Marlen 66361.1.1 it y of 3.412.2.7 [place] .3.210641 MD Renteria8 [facility] 2022-02-21 2022-02-21 Office Sadi, 1.2.840.1 [id number] Univers 15:30:00 16:14:33 Visit Van Dor[place] 26570.1.1 ity of 3.412.2.7 [place] .3Myra586261William Rojas [facility] 2022-02-21 2022-02-21 Office Sadi, 1.2.840.1 [id number] Univers 15:30:00 16:14:33 Visit [place] Dor[place] 72454.1.1 ity of 3.412.2.7 [place] .3.495097 MD Rojas [facility] 2022-02-21 2022-02-21 Office Bettie, 1.2.840.1 [id number] Univers 14:30:00 15:55:27 Visit Canelo 06164.1.1 ity of 3.412.2.7 [place] .3Myra097880 MD Renteria8 [facility] 2022-02-21 2022-02-21 Office Bettie, 1.2.840.1 [id number] Univers 14:30:00 15:55:27 Visit Canelo 12713.1.1 ity of 3.412.2.7 [place] .3Myra577947 MD Renteria8 [facility] 2022-02-21 2022-02-21 [facility], 1.2.840.1 [id number] Univers 12:17:44 12:34:00 Encounter Lyndsay 31861.1.1 it y of 3.412.2.7 [place] .3.459712 MD Rojas [facility] 2022-02-21 2022-02-21 [facility] Patten, 1.2.840.1 [id number] Univers 12:17:44 12:34:00 Encounter Lyndsay 54503.1.1 it y of 3.412.2.7 [place] .3.489094 MD Rojas [facility] 2022-02-21 2022-02-21 Orders Patten, 1.2.840.1 [id number] Univers 00:00:00 00:00:00 Only Lyndsay 01915.1.1 ity of 3.412.2.7 [place] .3.724582 MD Rojas [facility] 2022-02-21 2022-02-21 Travel 1.2.840.1 1.2.276.448 7750 [id number] Univers 00:00:00 00:00:00 15406.1.1 350.1.13.41 ity of 3.412.2.7 2.[place].7.3.698 [place] .3.417670 084.8 MD Rojas [facility] 2022-02-21 2022-02-21 [facility] Sandor, 1.2.840.1 [id number] 0376 Univers 00:00:00 00:00:00 Only Lyndsay 98107.1.1 ity of 3.412.2.7 [place] .3.151334 MD Rojas [facility] 2022-02-21 2022-02-21 Travel 1.2.840.1 1.2.109.099 7621 [id number] Univers 00:00:00 00:00:00 17363.1.1 350.1.13.41 ity of 3.412.2.7 2.[place].7.3.698 [place] .3.991406 084Myra8 MD Rojas [facility] 2022-01-24 2022-01-24 [facility], 1.2.840.1 [id number] Univers 12:30:00 23:59:00 Encounter Marti 77674.1.1 it y of 3.412.2.7 [place] .3.314313 MD Rojas [facility] 2022-01-24 2022-01-24 [facility], 1.2.840.1 [id number] Univers 12:30:00 23:59:00 Encounter Marti 32388.1.1 it y of 3.412.2.7 [place] .3.322873 MD Renteria8 [facility] 2022-01-24 2022-01-24 Office [facility], 1.2.840.1 [id number] Univers 14:30:00 15:29:58 Visit Van KatherynMyra 77082.1.1 ity of 3.412.2.7 [place] .3.901086 MD Rojas [facility] 2022-01-24 2022-01-24 Office Sadi, 1.2.840.1 [id number] Univers 14:30:00 15:29:58 Visit Van KatherynMyra 00326.1.1 ity of 3.412.2.7 [place] .3.485457 MD Rojas [facility] 2022-01-24 2022-01-24 Travel 1.2.840.1 1.2.287.287 9509 [id number] Univers 00:00:00 00:00:00 74250.1.1 350.1.13.41 ity of 3.412.2.7 2.2.7.3.698 [place] .3.969217 084.8 MD Rojas [facility] 2022-01-24 2022-01-24 Travel 1.2.840.1 1.2.726.362 8603 [id number] Univers 00:00:00 00:00:00 67222.1.1 350.1.13.41 ity of 3.412.2.7 2.[place].7.3.698 [place] .3.330063 084.8 .8 [facility] 2022-01-17 2022-01-22 [facility] 1.2.840.1 [id number] [id number] Univers 16:05:00 13:15:00 Encounter Van Wolf 56646.1.1 ity of Patric Armas 3.412.2.7 Shad Silva .3.521065 Ministerio Renteria8 [facility] 2022-01-17 2022-01-22 [facility]1 [id number] 4025 [id number] Univers 16:05:00 13:15:00 Encounter Van Wolf 13119.1.1 ity of Patric Armas 3.412.2.7 Shad Silva .3.631909 Ministerio Renteria8 [facility] 2022-01-21 2022-01-21 Gemma Mathias, 1.2.840.1 [id number] Univers 00:00:00 00:00:00 Only Rosanne Patiño 31151.1.1 ity of 3.412.2.7 [place] .3.695748 MD Renteria8 [facility] 2022-01-21 2022-01-21 Gemma Mathias 1.2.840.1 [id number] Univers 00:00:00 00:00:00 Only Rosanne Patiño 83637.1.1 ity of 3.412.2.7 [place] .3.512863 .8 [facility] 2022-01-18 2022-01-18 Inpatient MACK MATHIAS KAE MDA [id number] 10:08:14 11:34:23 ROSANNE jimenez 2022-01-18 2022-01-18 Inpatient MACK SADI, KAE MDA [id number] 09:57:57 10:23:08 VAN jimenez 2022-01-18 2022-01-18 Inpatient MACK WOLF KAE MDA [id number] MD 02:32:13 02:47:32 VAN jimenez 2022-01-17 2022-01-17 [facility], 1.2.840.1 [id number] Univers 14:40:51 16:04:00 Encounter Van KatherynMyra 50834.1.1 it y of 3.412.2.7 [place] .3Myra433200 MD Rojas [facility] 2022-01-17 2022-01-17 [facility], 1.2.840.1 [id number] Univers 14:40:51 16:04:00 Encounter Van KatherynMyra 03434.1.1 it y of 3.412.2.7 [place] .3Qasim716173 MD Rojas [facility] 2022-01-17 2022-01-17 Office [facility], 1.2.840.1 [id number] Univers 15:00:00 15:00:00 Visit Van Dorado 72588.1.1 ity of 3.412.2.7 [place] .3Myra359997 MD Rojas [facility] 2022-01-17 2022-01-17 [facility], 1.2.840.1 [id number] Univers 15:00:00 15:00:00 Visit Van Dorado 36220.1.1 ity of 3.412.2.7 [place] .3Myra204199 MD Rojas [facility] 2022-01-17 2022-01-17 [facility] [place]. 1.2.840.1 [id number] Univers 13:00:00 14:39:00 Encounter Mray Quiroga 56392.1.1 ity of 3.412.2.7 [place] .3Myra245941 MD Rojas [facility] [place] 2022-01-17 2022-01-17 [facility], Van FMyra 1.2.840.1 [id number] Univers 13:00:00 14:39:00 Encounter Mary Quiroga 70843.1.1 ity of 3.412.2.7 [place] .3Myra945255 MD Rojas [facility] [place] 2022-01-17 2022-01-17 [facility], 1.2.840.1 [id number] Univers 10:45:02 12:59:00 Encounter Deena Goldberg 07920.1.1 i ty of 3.412.2.7 [place] .3Myra675270 MD Rojas [facility] 2022-01-17 2022-01-17 [facility], 1.2.840.1 [id number] Univers 10:45:02 12:59:00 Encounter Deena Goldberg 01632.1.1 i ty of 3.412.2.7 [place] .3Myra099930 MD Renteria8 [facility] 2022-01-17 2022-01-17 [facility] 1.2.840.1 [id number] Univers 09:53:35 10:44:00 Encounter Van Dorado 08032.1.1 it y of 3.412.2.7 [place] .3Myra949184 MD Rojas [facility] 2022-01-17 2022-01-17 [facility] 1.2.840.1 [id number] Univers 09:53:35 10:44:00 Encounter Van Dorado 64180.1.1 it y of 3.412.2.7 [place] .3Myra016142 MD Rojas [facility] 2022-01-17 2022-01-17 [facility] 1.2.840.1 [id number] Univers 09:52:57 09:52:57 Encounter Deena Goldberg 29929.1.1 i ty of 3.412.2.7 [place] .3Myra468674 MD Rojas [facility] 2022-01-17 2022-01-17 [facility] 1.2.840.1 [id number] Univers 09:52:57 09:52:57 Encounter Deena Goldberg 45271.1.1 i ty of 3.412.2.7 [place] .3Myra400575 MD Rojas [facility] 2022-01-17 2022-01-17 [facility] Jessica, 1.2.840.1 [id number] Univers 00:00:00 00:00:00 Only Cristofer Maier 93677.1.1 ity of 3.412.2.7 [place] .3.694031 MD Rojas [facility] 2022-01-17 2022-01-17 Travel 1.2.840.1 1.2.652.697 4958 [id number] Univers 00:00:00 00:00:00 22466.1.1 350.1.13.41 ity of 3.412.2.7 2.2.7.3.698 [place] .3.785132 084.8 MD Rojas [facility] 2022-01-17 2022-01-17 Gemma Betancourt, 1.2.840.1 [id number] [id number] Univers 00:00:00 00:00:00 Only Deena Goldberg 95514.1.1 ity of 3.412.2.7 [place] .3.461769 MD Rojas [facility] 2022-01-17 2022-01-17 Gemma Lopez, 1.2.840.1 [id number] Univers 00:00:00 00:00:00 Only Cristofer Maier 14290.1.1 ity of 3.412.2.7 [place] .3.394309 MD Rojas [facility] 2022-01-17 2022-01-17 Travel 1.2.840.1 1.2.454.701 5896 [id number] Univers 00:00:00 00:00:00 95840.1.1 350.1.13.41 ity of 3.412.2.7 2.2.7.3.698 [place] .3.308827 084.8 MD Rojas [facility] 2022-01-17 2022-01-17 Gemma Betancourt 1.2.840.1 [id number] [id number] Univers 00:00:00 00:00:00 Only Deena Goldberg 53463.1.1 ity of 3.412.2.7 [place] .3.732029 MD Rojas [facility] 2022-01-09 2022-01-09 Gemma Niya, 1.2.840.1 [id number] [id number] Univers 00:00:00 00:00:00 Only Deena Goldberg 11634.1.1 ity of 3.412.2.7 [place] .3.944803 MD Renteria8 [facility] 2022-01-09 2022-01-09 Gemma Niya, 1.2.840.1 [id number] [id number] Univers 00:00:00 00:00:00 Only Deena Goldberg 47017.1.1 ity of 3.412.2.7 [place] .3.726528 MD Renteria8 [facility] 2022-01-04 2022-01-04 [facility] [place]. 1.2.840.1 [id number] Univers 12:47:00 23:59:00 Encounter Henrry Euceda 19613.1.1 ity of 3.412.2.7 [place] .3.521905 MD Renteria8 [facility] 2022-01-04 2022-01-04 [facility] [place]. 1.2.840.1 [id number] Univers 12:47:00 23:59:00 Encounter Henrry Euceda 50905.1.1 ity of 3.412.2.7 [place] .3.840352 MD Renteria8 [facility] 2022-01-04 2022-01-04 [facility], 1.2.840.1 [id number] Univers 10:26:02 12:46:00 Encounter Van FMyra 25881.1.1 it y of 3.412.2.7 [place] .3.195116 MD Renteria8 [facility] 2022-01-04 2022-01-04 [facility], 1.2.840.1 [id number] Univers 10:26:02 12:46:00 Encounter Van FMyra 37017.1.1 it y of 3.412.2.7 [place] .3.201568 MD Renteria8 [facility] 2022-01-04 2022-01-04 [facility] 1.2.840.1 [id number] Univers 08:45:00 10:25:00 Encounter , Lesley 48800.1.1 it y of 3.412.2.7 [place] .3.655419 MD Renteria8 [facility] 2022-01-04 2022-01-04 [facility] 1.2.840.1 [id number] Univers 08:45:00 10:25:00 Encounter , Lesley 29460.1.1 it y of 3.412.2.7 [place] .3.097221 MD Renteria8 [facility] 2022-01-04 2022-01-04 Travel 1.2.840.1 1.2.625.953 8574 [id number] Univers 00:00:00 00:00:00 03054.1.1 350.1.13.41 ity of 3.412.2.7 2.2.7.3.698 [place] .3.282096 084.Inez Rojas [facility] 2022-01-04 2022-01-04 Travel 1.2.840.1 1.2.801.962 8954 [id number] Univers 00:00:00 00:00:00 99347.1.1 350.1.13.41 ity of 3.412.2.7 2.2.7.3.698 [place] .3.879818 084.8 MD Rojas [facility] 2022-01-03 2022-01-03 Gemma Betancourt 1.2.840.1 [id number] [id number] Univers 00:00:00 00:00:00 Only Deena Goldberg 81419.1.1 ity of 3.412.2.7 [place] .3.029360 MD Rojas [facility] 2022-01-03 2022-01-03 Gemma Betancourt 1.2.840.1 [id number] 1091 [id number] Univers 00:00:00 00:00:00 Only Deena Goldberg 11751.1.1 ity of 3.412.2.7 [place] .3.419331 MD Renteria8 [facility] 2022-01-02 2022-01-02 Gemma Betancourt, 1.2.840.1 [id number] 1091 [id number] Univers 00:00:00 00:00:00 Only Deena Goldberg 22031.1.1 ity of 3.412.2.7 [place] .3.315502 MD Renteria8 [facility] 2022-01-02 2022-01-02 Orders Niya 1.2.840.1 [id number] 1091 [id number] Univers 00:00:00 00:00:00 Only Deena Goldberg 44553.1.1 ity of 3.412.2.7 [place] .3.175668 MD Renteria8 [facility] 2022-01-01 2022-01-01 Orders Courtney 1.2.840.1 [id number] Univers 00:00:00 00:00:00 Only , Lesley 31544.1.1 ity of 3.412.2.7 [place] .3.129353 MD Renteria8 [facility] 2022-01-01 2022-01-01 Gemma Valdez 1.2.840.1 [id number] Univers 00:00:00 00:00:00 Only , Lesley 26902.1.1 ity of 3.412.2.7 [place] .3.261510 MD Renteria8 [facility] 2021-12-27 2021-12-27 [facility] [place] 1.2.840.1 [id number] [facility] 12:53:52 23:59:00 Encounter Jose G Cowan 21643.1.1 ity of 3.412.2.7 [place] .3.350076 MD Renteria8 [facility] 2021-12-27 2021-12-27 [facility] Van Wolf 1.2.840.1 [id number] [facility] 12:53:52 23:59:00 Encounter Jose G Cowan 16974.1.1 ity of 3.412.2.7 [place] .3.515290 MD Rojas [facility] 2021-12-27 2021-12-27 [facility] 1.2.840.1 [id number] Univers 10:31:39 12:52:00 Encounter Deena Goldberg 53638.1.1 i ty of 3.412.2.7 [place] .3.408799 MD Rojas [facility] 2021-12-27 2021-12-27 [facility] 1.2.840.1 [id number] Univers 10:31:39 12:52:00 Encounter Deena Goldberg 87783.1.1 i ty of 3.412.2.7 [place] .3.647857 MD Rojas [facility] 2021-12-27 2021-12-27 [facility] 1.2.840.1 [id number] Univers 10:16:20 10:30:00 Encounter Deena Goldberg 80303.1.1 i ty of 3.412.2.7 [place] .3.131526 MD Rojas [facility] 2021-12-27 2021-12-27 [facility], 1.2.840.1 [id number] [id number] Univers 10:16:20 10:30:00 Encounter Deena Goldberg 77495.1.1 i ty of 3.412.2.7 [place] .3.512959 MD Rojas [facility] 2021-12-27 2021-12-27 Gemma Belle 1.2.840.1 [id number] Univers 00:00:00 00:00:00 Only Lovette 01126.1.1 ity of [place] 3.412.2.7 [place] .3.313206 MD Rojas [facility] 2021-12-27 2021-12-27 Trey Belle 1.2.840.1 [id number] Univers 00:00:00 00:00:00 ion Lovette 87940.1.1 ity of [place] 3.412.2.7 [place] .3.331839 MD Rojas [facility] 2021-12-27 2021-12-27 Telephone Yoshi, 1.2.840.1 [id number] Univers 00:00:00 00:00:00 Lovette 29319.1.1 ity of [place] 3.412.2.7 [place] .3.182415 MD Renteria8 [facility] 2021-12-27 2021-12-27 Travel 1.2.840.1 1.2.597.174 4009 [id number] Univers 00:00:00 00:00:00 08694.1.1 350.1.13.41 ity of 3.412.2.7 2.2.7.3.698 [place] .3.571108 084.8 MD Renteria8 [facility] 2021-12-27 2021-12-27 Gemma Betancourt, 1.2.840.1 [id number] 1091 [id number] Univers 00:00:00 00:00:00 Only Deena M 09377.1.1 ity of 3.412.2.7 [place] .3.925512 MD Rojas [facility] 2021-12-27 2021-12-27 Orders Yoshi, 1.2.840.1 [id number] Univers 00:00:00 00:00:00 Only Lovette 09347.1.1 ity of [place] 3.412.2.7 [place] .3.190421 MD Rojas [facility] 2021-12-27 2021-12-27 Documentat Yoshi, 1.2.840.1 [id number] Univers 00:00:00 00:00:00 ion Lovette 87083.1.1 ity of [place] 3.412.2.7 [place] .3.996314 MD Renteria8 [facility] 2021-12-27 2021-12-27 Telephone Yoshi, 1.2.840.1 [id number] Univers 00:00:00 00:00:00 Lovette 57795.1.1 ity of [place] 3.412.2.7 [place] .3.970898 MD Rojas [facility] 2021-12-27 2021-12-27 Travel 1.2.840.1 1.2.083.717 8962 [id number] Univers 00:00:00 00:00:00 26524.1.1 350.1.13.41 ity of 3.412.2.7 2.2.7.3.698 [place] .3.785662 084.8 MD Renteria8 [facility] 2021-12-27 2021-12-27 Gemma Betancourt, 1.2.840.1 [id number] [id number] Univers 00:00:00 00:00:00 Only Deena Goldberg 08072.1.1 ity of 3.412.2.7 [place] .3.499141 MD Rojas [facility] 2021-12-24 2021-12-24 Documentat Facciolli, 1.2.840.1 [id number] Univers 00:00:00 00:00:00 america Watters 93870.1.1 ity of 3.412.2.7 [place] .3.127552 MD Rojas [facility] 2021-12-24 2021-12-24 Documentat Facciolli, 1.2.840.1 [id number] Univers 00:00:00 00:00:00 america Watters 13012.1.1 ity of 3.412.2.7 [place] .3.413616 MD Rojas [facility] 2021-12-19 2021-12-19 Gemma Betancourt 1.2.840.1 [id number] [id number] Univers 00:00:00 00:00:00 Only Deena Goldberg 47188.1.1 ity of 3.412.2.7 [place] .3.205884 MD Rojas [facility] 2021-12-19 2021-12-19 Gemma Betancourt 1.2.840.1 [id number] [id number] Univers 00:00:00 00:00:00 Only Deena Goldberg 83544.1.1 ity of 3.412.2.7 [place] .3.831425 MD Rojas [facility] 2021-12-17 2021-12-17 Nesha Patten 1.2.840.1 [id number] Univers 00:00:00 00:00:00 Lyndsay 07611.1.1 ity of 3.412.2.7 [place] .3.230686 MD Renteria8 [facility] 2021-12-17 2021-12-17 Nesha Patten, 1.2.840.1 [id number] Univers 00:00:00 00:00:00 Lyndsay 83254.1.1 ity of 3.412.2.7 [place] .3.080224 MD Renteria8 [facility] 2021-12-13 2021-12-13 [facility] Van Wolf 1.2.840.1 [id number] Univers 12:40:00 23:59:00 Encounter Bryanna Weiss 52268.1.1 ity of 3.412.2.7 [place] .3.185695 MD Renteria8 [facility] 2021-12-13 2021-12-13 [facility] SadiVan 1.2.840.1 [id number] Univers 12:40:00 23:59:00 Encounter Bryanna Weiss 99640.1.1 ity of 3.412.2.7 [place] .3.299593 MD [facility] 2021-12-13 2021-12-13 Office Sadi 1.2.840.1 [id number] Univers 14:00:00 14:28:02 Visit Van Dorado 05750.1.1 ity of 3.412.2.7 [place] .3.215774 MD [facility] 2021-12-13 2021-12-13 Office Sadi 1.2.840.1 [id number] Univers 14:00:00 14:28:02 Visit [place] Dor[place] 60088.1.1 ity of 3.412.2.7 [place] .3.401494 MD [facility] 2021-12-13 2021-12-13 [facility], 1.2.840.1 [id number] Univers 10:37:46 12:39:00 Encounter Van F. 79280.1.1 it y of 3.412.2.7 [place] .3.664523 MD [facility] 2021-12-13 2021-12-13 [facility], 1.2.840.1 [id number] Univers 10:37:46 12:39:00 Encounter Van F. 22781.1.1 it y of 3.412.2.7 [place] .3.436442 MD [facility] 2021-12-13 2021-12-13 [facility], 1.2.840.1 [id number] Univers 09:46:36 10:36:00 Encounter Lyndsay 36242.1.1 it y of 3.412.2.7 [place] .3.970774 MD [facility] 2021-12-13 2021-12-13 [facility], 1.2.840.1 [id number] Univers 09:46:36 10:36:00 Encounter Lyndsay 10959.1.1 it y of 3.412.2.7 [place] .3.455390 MD [facility] 2021-12-13 2021-12-13 Travel 1.2.840.1 1.2.865.606 [id number] Univers 00:00:00 00:00:00 67698.1.1 350.1.13.41 ity of 3.412.2.7 2.[place]7.3.698 [place] .3.833088 084.8 MD [facility] 2021-12-13 2021-12-13 [facility] Niya, 1.2.840.1 [id number] Univers 00:00:00 00:00:00 Only Deena Goldberg 85196.1.1 ity of 3.412.2.7 [place] .3.564269 MD [facility] 2021-12-13 2021-12-13 Orders Niya, 1.2.840.1 [id number] Univers 00:00:00 00:00:00 Only Deena Goldberg 91164.1.1 ity of 3.412.2.7 [place] .3.259796 MD Renteria8 [facility] 2021-12-13 2021-12-13 Travel 1.2.840.1 1.2.694.945 [id number] Univers 00:00:00 00:00:00 95641.1.1 350.1.13.41 ity of 3.412.2.7 2.2.7.3.698 [place] .3.274442 084.8 MD Renteria8 [facility] [facility]) 2021-12-12 2021-12-12 Nesha Castro, 1.2.840.1 [id number] Univers 00:00:00 00:00:00 Rosanne 32511.1.1 ity of 3.412.2.7 [place] .3.159445 MD Renteria8 [facility] 2021-12-12 2021-12-12 Gemma Centeno, 1.2.840.1 [id number] Univers 00:00:00 00:00:00 Only Cynthia Diehl 80859.1.1 it y of 3.412.2.7 [place] .3.997233 MD Renteria8 [facility] 2021-12-12 2021-12-12 Nesha Castro, 1.2.840.1 [id number] Univers 00:00:00 00:00:00 Rosanne 79195.1.1 ity of 3.412.2.7 [place] .3.211737 MD Renteria8 [facility] 2021-12-12 2021-12-12 Gemma Centeno, 1.2.840.1 [id number] Univers 00:00:00 00:00:00 Only Cynthia Diehl 69351.1.1 it y of 3.412.2.7 [place] .3.991217 MD [facility] 2021-12-06 2021-12-06 [facility] [place]. 1.2.840.1 [id number] Univers 12:34:36 23:59:00 Encounter Sierra Barnett 67009.1.1 ity of 3.412.2.7 [place] .3.725342 MD [facility] 2021-12-06 2021-12-06 [facility] Van F. 1.2.840.1 [id number] Univers 12:34:36 23:59:00 Encounter Sierra Barnett 62120.1.1 ity of 3.412.2.7 [place] .3.200857 MD Renteria8 [facility] 2021-12-06 2021-12-06 [facility], 1.2.840.1 [id number] Univers 10:04:29 12:33:00 Encounter Van F. 82025.1.1 it y of 3.412.2.7 [place] .3.037342 MD Renteria8 [facility] 2021-12-06 2021-12-06 [facility], 1.2.840.1 [id number] Univers 10:04:29 12:33:00 Encounter Van F. 21430.1.1 it y of 3.412.2.7 [place] .3Myra021242 MD [facility] 2021-12-06 2021-12-06 [facility] 1.2.840.1 [id number] Univers 09:00:00 10:03:00 Encounter Deena Goldberg 17675.1.1 i ty of 3.412.2.7 [place] .3Myra304311 MD [facility] 2021-12-06 2021-12-06 [facility] 1.2.840.1 [id number] Univers 09:00:00 10:03:00 Encounter Deena Goldberg 01427.1.1 i ty of 3.412.2.7 [place] .3Myra265137 MD [facility] 2021-12-06 2021-12-06 Travel 1.2.840.1 1.2.375.315 4733 [id number] Univers 00:00:00 00:00:00 20609.1.1 350.1.13.41 ity of 3.412.2.7 [place]7.3.698 [place] .3.5585[place] 084.8 .8 [facility] 2021-12-06 2021-12-06 Travel 1.2.840.1 1.2.399.867 8451 [id number] Univers 00:00:00 00:00:00 20194.1.1 350.1.13.41 ity of 3.412.2.7 2.[place].7.3.698 [place] .3.399079 084.8 .8 [facility] 2021-12-05 2021-12-05 [facility] 1.2.840.1 [id number] [id number] Methodi 14:10:41 23:59:00 Encounter Patric Childers50.1.[address] 3.430.2.7 Hospit a .3.134860 l .8 2021-12-05 2021-12-05 [facility] 1.2.840.1 [id number] Methodi 14:10:41 23:59:00 Encounter Patric Childers50.1.[address] 3.430.2.7 Hospit a .3.532443 l .8 2021-12-05 2021-12-05 Office [facility] 1.2.840.1 [id number] 8523 Methodi 15:30:00 16:20:29 Visit Patric Mantilla.1.[address] 3.430.2.7 Hospit a .3.264668 l .8 2021-12-05 2021-12-05 Office Thomas, 1.2.840.1 [id number] 2420 Methodi 15:30:00 16:20:29 Visit Patric Mantilla.1.[address] 3.430.2.7 Hospit a .3.064205 l .8 2021-12-05 2021-12-05 Orders Centeno, 1.2.840.1 [id number] [facility] 00:00:00 00:00:00 Only Cynthia Patel. 82638.1.1 it y of 3.412.2.7 [place] .3.049261 MD Renteria8 [facility] 2021-12-05 2021-12-05 Travel 1.2.840.1 1.2.160.053 9226 [id number] Methodi 00:00:00 00:00:[address] 3.430.2.7 0.2.7.3.698 Ho spita .3.105890 084.8 l .8 2021-12-05 2021-12-05 Orders Portillo, 1.2.840.1 [id number] 9955 Methodi 00:00:00 00:00:00 Only Quyen 43275.1.[address] 3.430.2.7 Hospit a .3.795232 l .8 2021-12-05 2021-12-05 Orders Centeno, 1.2.840.1 [id number] Univers 00:00:00 00:00:00 Only Cynthia Patel. 89496.1.1 it y of 3.412.2.7 [place] .3.146003 MD Renteria8 [facility] 2021-12-05 2021-12-05 Travel 1.2.840.1 1.2.812.933 0939 010541 Methodi 00:00:00 00:00:[address] 3.430.2.7 0.2.7.3.698 Ho spita .3.833618 084.8 l .8 2021-12-05 2021-12-05 Orders Portillo, 1.2.840.1 [id number] 2116 Methodi 00:00:00 00:00:00 Only Quyen 08544.1.[address] 3.430.2.7 Hospit a .3.248962 tristian .8 2021-11-29 2021-11-29 [facility] [place] 1.2.840.1 [id number] Univers 12:57:40 23:59:00 Encounter Skye Yuen Tristian 60407.1.1 ity of [place], Antonette 3.412.2.7 [place] .3.600660 MD Renteria8 [facility] 2021-11-29 2021-11-29 [facility] [place] 1.2.840.1 [id number] Univers 12:57:40 23:59:00 Encounter WilfridHannaSkye L 81804.1.1 ity of [place], Antonette 3.412.2.7 [place] .3.263694 .8 [facility] 2021-11-29 2021-11-29 [facility], 1.2.840.1 [id number] [id number] Univers 09:55:44 12:56:00 Encounter Van F. 86439.1.1 it y of 3.412.2.7 [place] .3.762106 .8 [facility] 2021-11-29 2021-11-29 [facility], 1.2.840.1 [id number] 08981 Univers 09:55:44 12:56:00 Encounter Van F. 46778.1.1 it y of 3.412.2.7 [place] .3Myra708809 .8 [facility] 2021-11-29 2021-11-29 [facility], 1.2.840.1 [id number] 37176 Univers 07:45:00 09:54:00 Encounter Cynthia Patel. 73132.1.1 ity of 3.412.2.7 [place] .3Myra053499 .8 [facility] 2021-11-29 2021-11-29 [facility], 1.2.840.1 [id number] 81597 Univers 07:45:00 09:54:00 Encounter Cynthia R. 99043.1.1 ity of 3.412.2.7 [place] .3.781398 MD Renteria8 [facility] 2021-11-29 2021-11-29 Gemma Betancourt, 1.2.840.1 [id number] 1090 [id number] Univers 00:00:00 00:00:00 Only Deena Goldberg 73682.1.1 ity of 3.412.2.7 [place] .3.660168 MD Renteria8 [facility] 2021-11-29 2021-11-29 Travel 1.2.840.1 1.2.803.143 0846 [id number] Univers 00:00:00 00:00:00 98754.1.1 350.1.13.41 ity of 3.412.2.7 2.[place].7.3.698 [place]3.340832 084.8 MD [facility] 2021-11-29 2021-11-29 Gemma Betancourt, 1.2.840.1 [id number] [id number] Univers 00:00:00 00:00:00 Only Deena Goldberg 75221.1.1 ity of 3.412.2.7 [place] .3.879655 MD [facility] 2021-11-29 2021-11-29 Travel 1.2.840.1 1.2.022.971 6912 [id number] Univers 00:00:00 00:00:00 47179.1.1 350.1.13.41 ity of 3.412.2.7 2.2.7.3.698 [place] .3.581994 084.8 MD [facility]jas [facility] 2021-11-28 2021-11-28 Orders Centeno, 1.2.840.1 [id number] 9216 Univers 00:00:00 00:00:00 Only Cynthia Diehl 99253.1.1 it y of 3.412.2.7 [place] .3.222494 MD [facility] 2021-11-28 2021-11-28 Orders Centeno, 1.2.840.1 [id number] Univers 00:00:00 00:00:00 Only Cynthia Diehl 34251.1.1 it y of 3.412.2.7 [place] .3.767756 MD Renteria8 [facility] 2021-11-28 2021-11-28 [facility], 1.2.840.1 [id number] Univers 00:00:00 00:00:00 Only Cynthia Diehl 25147.1.1 it y of 3.412.2.7 [place] .3.508114 MD Renteria8 [facility] 2021-11-28 2021-11-28 [facility], 1.2.840.1 [id number] 2386 Univers 00:00:00 00:00:00 Only Cynthia Diehl 58113.1.1 it y of 3.412.2.7 [place] .3.277535 MD [facility] 2021-11-20 [facility].840[facility]1 [id number] Univers 07:38:53 23:59:00 Consuelo Dailey 72151.1.1 ity of 3.412.2.7 [place] .3.021960 MD Renteria8 [facility] 2021-11-20 2021[facility]11-20 [facility] 1.[facility].840[facility]1 [id number] Univers 07:38:53 23:59:00 Consuelo Dailey 47040.1.1 ity of 3.412.2.7 [place] .3Myra151738 MD Renteria8 [facility] 2021-11-20 2021-11-20 [facility] 1.2.840.1 [id number] Univers 07:37:41 07:37:41 Ayse Dorado 83139.1.1 it y of 3.412.2.7 [place] .3.868055 MD Renteria8 [facility] 2021-11-20 2021-11-20 [facility], 1.2.840.1 [id number] Univers 07:37:41 07:37:41 Encounter Van Dorado 76673.1.1 it y of 3.412.2.7 [place] .3.704942 MD [facility] 2021-11-20 2021-11-20 [facility], 1.2.840.1 [id number] [id number] Univers 06:45:00 07:36:00 Encounter Deena Goldberg 32329.1.1 i ty of 3.412.2.7 [place] .3.222532 MD [facility] 2021-11-20 2021-11-20 [facility], 1.2.840.1 [id number] [id number] Univers 06:45:00 07:36:00 Encounter Deena Goldberg 77242.1.1 i ty of 3.412.2.7 [place] .3.144766 MD [facility] 2021-11-20 2021-11-20 Travel 1.2.840.1 1.2.380.334 3949 [id number] Univers 00:00:00 00:00:00 92997.1.1 350.1.13.41 ity of 3.412.2.7 2.2.7.3.698 [place] .3.591330 084.Inez [facility] 2021-11-20 2021-11-20 Travel 1.2.840.1 1.2.298.634 8182 [id number] Univers 00:00:00 00:00:00 27616.1.1 350.1.13.41 ity of 3.412.2.7 2.2.7.3.698 [place] .3.181714 084.8 MD [facility]jas [facility] 2021-11-19 2021-11-19 [facility] 1.2.840.1 [id number] [id number] Univers 00:00:00 00:00:00 Only Deena Goldberg 66628.1.1 ity of 3.412.2.7 [place] .3.029589 MD [facility] 2021-11-19 2021-11-19 [facility] Niya, 1.2.840.1 [id number] 1089 [id number] Univers 00:00:00 00:00:00 Only Deena Goldberg 52535.1.1 ity of 3.412.2.7 [place] .3.777289 MD Renteria8 [facility] 2021-11-15 2021-11-15 [facility], 1.2.840.1 [id number] Univers 09:55:44 23:59:00 Encounter Van Dorado 94097.1.1 it y of 3.412.2.7 [place] .3.909400 MD Renteria8 [facility] 2021-11-15 2021-11-15 [facility], 1.2.840.1 [id number] 12334 Univers 09:55:44 23:59:00 Encounter Van Dorado 69803.1.1 it y of 3.412.2.7 [place] .3.774195 MD Renteria8 [facility] 2021-11-15 2021-11-15 [facility], 1.2.840.1 [id number] [id number] Univers 16:00:00 16:30:00 ne Van F. 96267.1.1 ity of 3.412.2.7 [place] .3.229150 MD Renteria8 [facility] 2021-11-15 2021-11-15 [facility], 1.2.840.1 [id number] Univers 16:00:00 16:30:00 ne Van F. 42648.1.1 ity of 3.412.2.7 [place] .3.947247 MD Renteria8 [facility] 2021-11-15 2021-11-15 [facility], 1.2.840.1 [id number] Univers 09:30:51 09:54:00 Encounter Lyndsay 09415.1.1 it y of 3.412.2.7 [place] .3.425666 MD Renteria8 [facility] 2021-11-15 2021-11-15 [facility], 1.2.840.1 [id number] [id number] Univers 09:30:51 09:54:00 Encounter Lyndsay 55653.1.1 it y of 3.412.2.7 [place] .3.989898 MD [facility] 2021-11-15 2021-11-15 Gemma Betancourt, 1.2.840.1 [id number] 1089 [id number] Univers 00:00:00 00:00:00 Only Deena Goldberg 19896.1.1 ity of 3.412.2.7 [place] .3.133512 MD [facility] 2021-11-15 2021-11-15 Travel 1.2.840.1 1.2.830.347 7834 [id number] Univers 00:00:00 00:00:00 30773.1.1 350.1.13.41 ity of 3.412.2.7 2.2.7.3.698 [place] .3.108004 084.8 MD [facility] 2021-11-15 2021-11-15 Gemma Betancourt, 1.2.840.1 [id number] 1089 [id number] Univers 00:00:00 00:00:00 Only Deena Goldberg 34627.1.1 ity of 3.412.2.7 [place] .3.957315 MD [facility] 2021-11-15 2021-11-15 Travel 1.2.840.1 1.2.676.901 2734 [id number] Univers 00:00:00 00:00:00 68049.1.1 350.1.13.41 ity of 3.412.2.7 2.2.7.3.698 [place] .3.555087 084.8 MD [facility]jas [facility] 2021-11-13 2021-11-13 [facility] Van Wolf 1.2.840.1 [id number] Univers 14:55:52 23:59:00 Aysha Alejo 24043.1.1 ity of 3.412.2.7 [place] .3.641893 MD Renteria8 [facility] 2021-11-13 2021-11-13 [facility] 1.2.840.1 [id number] Univers 14:55:52 23:59:00 Encounter Aysha Sinha 49877.1.1 ity of 3.412.2.7 [place] .3.739213 MD Renteria8 [facility] 2021-11-13 2021-11-13 [facility], 1.2.840.1 [id number] Univers 10:39:43 14:54:00 Encounter Van Dorado 70645.1.1 it y of 3.412.2.7 [place] .3Myra030096 MD Renteria8 [facility] 2021-11-13 2021-11-13 [facility], 1.2.840.1 [id number] Univers 10:39:43 14:54:00 Encounter Van Dorado 54513.1.1 it y of 3.412.2.7 [place] .3.994291 MD Renteria8 [facility] 2021-11-13 2021-11-[address] [facility], 1.2.840.1 [id number] Univers 13:00:00 14:13:04 Visit Van Dorado 93284.1.1 ity of 3.412.2.7 [place] .3.722450 MD [facility] 2021-11-13 2021-11-13 [facility] 1.2.840.1 [id number] Univers 13:00:00 14:13:04 Visit Van Dorado 13074.1.1 ity of 3.412.2.7 [place] .3Myra342427 MD Renteria8 [facility] 2021-11-13 2021-11-13 [facility] 1.2.840.1 [id number] Univers 09:45:00 10:38:00 Encounter Deena Goldberg 26187.1.1 i ty of 3.412.2.7 [place] .3Myra572968 MD [facility] 2021-11-13 2021-11-13 [facility] MACK VizcainoNiya, 1.2.840.1 [id number] Univers 09:45:00 10:38:00 Encounter Deena Goldberg 59008.1.1 i ty of 3.412.2.7 [place] .3.563693 MD [facility] 2021-11-13 2021-11-13 [facility], 1.2.840.1 [id number] [id number] Univers 09:15:00 09:44:00 Encounter Lyndsay 62826.1.1 it y of 3.412.2.7 [place] .3.894233 MD Renteria8 [facility] 2021-11-13 2021-11-13 [facility] Patten, 1.2.840.1 [id number] [id number] Univers 09:15:00 09:44:00 Encounter Lyndsay 70276.1.1 it y of 3.412.2.7 [place] .3.620313 MD [facility] 2021-11-13 2021-11-13 Travel 1.2.840.1 1.2.153.820 8498 [id number] Univers 00:00:00 00:00:00 04041.1.1 350.1.13.41 ity of 3.412.2.7 2.2.7.3.698 [place] .3.079870 084.8 MD [facility] 2021-11-13 2021-11-13 Travel 1.2.840.1 1.2.953.391 7941 [id number] Univers 00:00:00 00:00:00 35741.1.1 350.1.13.41 ity of 3.412.2.7 2.2.7.3.698 [place] .3.194624 084.8 MD [facility] 2021-11-12 2021-11-12 Orders Jacobo, 1.2.840.1 [id number] 5215 Univers 00:00:00 00:00:00 Only Cynthia R. 89099.1.1 it y of 3.412.2.7 [place] .3.235278 MD Renteria8 [facility] 2021-11-12 2021-11-12 Orders [facility]eno, 1.2.840.1 [id number] Univers 00:00:00 00:00:00 Only Cynthia Diehl 95847.1.1 it y of 3.412.2.7 [place] .3.971493 MD Renteria8 [facility] 2021-11-09 2021-11-09 Orders Niya, 1.2.840.1 [id number] [id number] Univers 00:00:00 00:00:00 Only Deena Goldberg 65815.1.1 ity of 3.412.2.7 [place] .3.278491 MD Renteria8 [facility] 2021-11-09 2021-11-09 Orders Niya, 1.2.840.1 [id number] 1089 [id number] Univers 00:00:00 00:00:00 Only Deena Goldberg 71204.1.1 ity of 3.412.2.7 [place] .3.845440 MD Renteria8 [facility] 2021-11-08 2021-11-08 [facility] 1.2.840.1 [id number] 81290 [id number] Univers 11:00:00 23:59:00 Encounter Van F. 57652.1.1 it y of 3.412.2.7 [place] .3.771634 MD [facility] 2021-11-08 2021-11-08 [facility] 1.2.840.1 [id number] 67601 63577 Univers 11:00:00 23:59:00 Encounter Van F. 92256.1.1 it y of 3.412.2.7 [place] .3.963968 MD Renteria8 [facility] 2021-11-08 2021-11-08 Office Angie Garcia 1.2.840.1 [id number] Univers 10:15:00 11:22:37 Visit 18894.1.1 ity of 3.412.2.7 [place] .3.379209 MD [facility] 2021-11-08 2021-11-08 Office Angie De Jesus 1.2.840.1 [id number] Univers 10:15:00 11:22:37 Visit 85653.1.1 ity of 3.412.2.7 [place] .3.041232 MD [facility] 2021-11-08 2021-11-08 Travel 1.2.840.1 1.2.703.197 9631 [id number] Univers 00:00:00 00:00:00 10661.1.1 350.1.13.41 ity of 3.412.2.7 2.2.7.3.698 [place] .3.847145 084.Inez [facility] 2021-11-08 2021-11-08 Travel 1.2.840.1 1.2.922.092 5133 [id number] Univers 00:00:00 00:00:00 62454.1.1 350.1.13.41 ity of 3.412.2.7 2.2.7.3.698 [place] .3.111875 084.Inez [facility] 2021-11-07 2021-11-07 Gemma Betancourt, 1.2.840.1 [id number] 1089 [id number] Univers 00:00:00 00:00:00 Only Deena Goldberg 48248.1.1 ity of 3.412.2.7 [place] .3.140689 MD [facility] 2021-11-07 2021-11-07 Gemma Betancourt, 1.2.840.1 [id number] 1089 [id number] Univers 00:00:00 00:00:00 Only Deena Goldberg 97651.1.1 ity of 3.412.2.7 [place] .3.618177 MD [facility] 2021-11-06 2021-11-06 [facility], 1.2.840.1 [id number] [facility] 13:11:03 23:59:00 Ayse Dorado 60311.1.1 it y of 3.412.2.7 [place] .3Myra208495 MD Renteria8 [facility] 2021-11-06 2021-11-06 [facility], 1.2.840.1 [id number] [id number] Univers 13:11:03 23:59:00 Encounter Van KatherynMyra 36289.1.1 it y of 3.412.2.7 [place] .3.951504 MD Renteria8 [facility] 2021-11-06 2021-11-06 [facility] Van Campa. 1.2.840.1 [id number] Univers 11:15:15 13:10:00 Encounter Randal Piper 70796.1.1 ity of 3.412.2.7 [place] .3.613588 MD Renteria8 [facility] 2021-11-06 2021-11-06 [facility] Van Estrada 1.2.840.1 [id number] Univers 11:15:15 13:10:00 Encounter Randal Piper 07653.1.1 ity of 3.412.2.7 [place] .3.897326 MD Renteria8 [facility] 2021-11-06 2021-11-06 [facility] 1.2.840.1 [id number] Univers 10:42:18 11:14:00 Encounter Deena Goldberg 18008.1.1 i ty of 3.412.2.7 [place] .3Myra258434 MD Renteria8 [facility] 2021-11-06 2021-11-06 [facility] 1.2.840.1 [id number] Univers 10:42:18 11:14:00 Encounter Deena Goldberg 22723.1.1 i ty of 3.412.2.7 [place] .3.183593 MD [facility] 2021-11-06 2021-11-06 Travel 1.2.840.1 1.2.236.364 7629 [id number] Univers 00:00:00 00:00:00 83586.1.1 350.1.13.41 ity of 3.412.2.7 2.2.7.3.698 [place] .3.438782 084.8 .8 [facility] 2021-11-06 2021-11-06 Travel 1.2.840.1 1.2.650.687 5933 [id number] Univers 00:00:00 00:00:00 77777.1.1 350.1.13.41 ity of 3.412.2.7 2.2.7.3.698 [place] .3.173297 084.8 MD Renteria8 [facility] 2021-11-05 2021-11-05 Gemma Betancourt, 1.2.840.1 [id number] Univers 00:00:00 00:00:00 Only Deena Goldberg 23133.1.1 ity of 3.412.2.7 [place] .3.216411 MD Renteria8 [facility] 2021-11-05 2021-11-05 Nesha Castro, 1.2.840.1 [id number] Univers 00:00:00 00:00:00 Rosanne 50055.1.1 ity of 3.412.2.7 [place] .3.743965 MD Renteria8 [facility] 2021-11-05 2021-11-05 Gemma Betancourt, 1.2.840.1 [id number] Univers 00:00:00 00:00:00 Only Deena Goldberg 16384.1.1 ity of 3.412.2.7 [place] .3.440742 MD Renteria8 [facility] 2021-11-05 2021-11-05 Nesha Castro, 1.2.840.1 [id number] Univers 00:00:00 00:00:00 Rosanne 81607.1.1 ity of 3.412.2.7 [place] .3.121458 MD Renteria8 [facility] 2021-11-02 2021-11-02 Gemma Betancourt, 1.2.840.1 [id number] Univers 00:00:00 00:00:00 Only Deena Golbderg 95653.1.1 ity of 3.412.2.7 [place] .3.247010 MD Renteria8 [facility] 2021-11-02 2021-11-02 [facility] 1.2.840.1 [id number] Univers 00:00:00 00:00:00 Rosanne 92084.1.1 ity of 3.412.2.7 [place] .3.383195 MD Renteria8 [facility] 2021-11-02 2021-11-02 [facility], 1.2.840.1 [id number] Univers 00:00:00 00:00:00 Only Deena Goldberg 09743.1.1 ity of 3.412.2.7 [place] .3.144544 MD Renteria8 [facility] 2021-11-02 2021-11-02 [facility], 1.2.840.1 [id number] Univers 00:00:00 00:00:00 Rosanne 37775.1.1 ity of 3.412.2.7 [place] .3.421058 MD Renteria8 [facility] 2021-11-01 2021-11-01 [facility], 1.2.840.1 [id number] Univers 10:02:36 23:59:00 Encounter [place] 53123.1.1 it y of 3.412.2.7 [place] .3.519557 MD Renteria8 [facility] 2021-11-01 2021-11-01 [facility], 1.2.840.1 [id number] Univers 10:02:36 23:59:00 Encounter [place] 10307.1.1 it y of 3.412.2.7 [place] .3.519061 MD Renteria8 [facility] 2021-11-01 2021-11-01 [facility] Sciences, 1.2.840.1 [id number] Univers 09:15:00 10:01:00 Encounter Deena Goldberg 38540.1.1 i ty of 3.412.2.7 [place] .3.833683 MD [facility] 2021-11-01 2021-11-01 [facility] Niya, 1.2.840.1 [id number] Univers 09:15:00 10:01:00 Encounter Deena Goldberg 74336.1.1 i ty of 3.412.2.7 [place] .3.788178 MD Renteria8 [facility] 2021-11-01 2021-11-01 [facility], 1.2.840.1 [id number] 1089 [id number] Univers 00:00:00 00:00:00 Only Deena Goldberg 60097.1.1 ity of 3.412.2.7 [place] .3.521378 MD [facility] 2021-11-01 2021-11-01 Travel 1.2.840.1 1.2.692.786 8898 [id number] Univers 00:00:00 00:00:00 00258.1.1 350.1.13.41 ity of 3.412.2.7 [place].3.698 [place] .3.488408 084.8 MD [facility] 2021-11-01 2021-11-01 [facility], 1.2.840.1 [id number] 1777 Univers 00:00:00 00:00:00 Only Moe Maier 74869.1.1 i ty of 3.412.2.7 [place] .3.386530 MD [facility] 2021-11-01 2021[facility]11-01 [facility] 1.2.840.1 [id number] 1089 [id number] Univers 00:00:00 00:00:00 Only Deena Goldberg 33300.1.1 ity of 3.412.2.7 [place] .3.036638 MD [facility] 2021-11-01 2021-11-01 Travel 1.2.840.1 1.2.448.382 6573 [id number] Univers 00:00:00 00:00:00 67323.1.1 350.1.13.41 ity of 3.412.2.7 2.[place].7.3.698 [place] .3.378855 084.8 MD Renteria8 [facility] 2021-11-01 2021-11-01 Gemma Calero, 1.2.840.1 [id number] Univers 00:00:00 00:00:00 Only Moe Maier 05613.1.1 i ty of 3.412.2.7 [place] .3.766756 MD Renteria8 [facility] 2021-10-29 2021-10-29 Gemma Betancourt, 1.2.840.1 [id number] 1089 [id number] Univers 00:00:00 00:00:00 Only Deena Goldberg 28520.1.1 ity of 3.412.2.7 [place] .3.659176 MD [facility] 2021-10-29 2021-10-29 Gemma Patten 1.2.840.1 [id number] Univers 00:00:00 00:00:00 Only Lyndsay 18354.1.1 ity of 3.412.2.7 [place] .3.718767 MD Renteria8 [facility] 2021-10-29 2021-10-29 Gemma Betancourt 1.2.840.1 [id number] 1089 [id number] Univers 00:00:00 00:00:00 Only Deena Goldberg 70146.1.1 ity of 3.412.2.7 [place] .3.247064 MD [facility] 2021-10-29 2021-10-29 Gemma Patten 1.2.840.1 [id number] Univers 00:00:00 00:00:00 Only Lyndsay 51653.1.1 ity of 3.412.2.7 [place] .3.601189 MD [facility] 2021-10-26 2021-10-26 Gemma Betancourt 1.2.840.1 [id number] 1089 [id number] Univers 00:00:00 00:00:00 Only Deena Goldberg 59090.1.1 ity of 3.412.2.7 [place] .3.562071 MD Renteria8 [facility] 2021-10-26 2021-10-26 Nesha Castro, 1.2.840.1 [id number] Univers 00:00:00 00:00:00 Rosanne 16676.1.1 ity of 3.412.2.7 [place] .3.954114 MD Renteria8 [facility] 2021-10-26 2021-10-26 Nesha Castro, 1.2.840.1 [id number] 1587 Univers 00:00:00 00:00:00 Rosanne 27640.1.1 ity of 3.412.2.7 [place] .3.393716 MD Renteria8 [facility] 2021-10-26 2021-10-26 Gemma Betancourt, 1.2.840.1 [id number] 1089 [id number] Univers 00:00:00 00:00:00 Only Deena Goldberg 34271.1.1 ity of 3.412.2.7 [place] .3.682011 MD Renteria8 [facility] 2021-10-26 2021-10-26 Nesha Castro, 1.2.840.1 [id number] Univers 00:00:00 00:00:00 Rosanne 61501.1.1 ity of 3.412.2.7 [place] .3.843583 MD Renteria8 [facility] 2021-10-26 2021-10-26 Nesha Castro, 1.2.840.1 [id number] Univers 00:00:00 00:00:00 Rosanne 89376.1.1 ity of 3.412.2.7 [place] .3.344904 MD Renteria8 [facility] 2021-10-25 2021-10-25 [facility], 1.2.840.1 [id number] Univers 09:51:15 23:59:00 Ayse Dorado 35711.1.1 it y of 3.412.2.7 [place] .3.163220 MD Renteria8 [facility] 2021-10-25 2021-10-25 [facility], 1.2.840.1 [id number] [id number] Univers 09:51:15 23:59:00 Encounter Van Dorado 83534.1.1 it y of 3.412.2.7 [place] .3Myra582338 MD Renteria8 [facility] 2021-10-25 2021-10-25 [facility] Van . 1.2.840.1 [id number] Univers 08:03:39 09:50:00 Encounter Andrew Locke 67049.1.1 ity of 3.412.2.7 [place] .3Myra355263 MD Renteria8 [facility] 2021-10-25 2021-10-25 [facility] Van . 1.2.840.1 [id number] Univers 08:03:39 09:50:00 Encounter Andrew Locke 37366.1.1 ity of 3.412.2.7 [place] .3Myra456501 MD Renteria8 [facility] 2021-10-25 2021-10-25 [facility], 1.2.840.1 [id number] Univers 06:50:00 08:02:00 Encounter Marlen 54348.1.1 it y of 3.412.2.7 [place] .3Myra586678 MD Renteria8 [facility] 2021-10-25 2021-10-25 [facility], 1.2.840.1 [id number] Univers 06:50:00 08:02:00 Encounter Marlen 70722.1.1 it y of 3.412.2.7 [place] .3Myra507503 MD Renteria8 [facility] 2021-10-25 2021-10-25 [facility] Matthew, 1.2.840.1 [id number] Univers 00:00:00 00:00:00 Rosanne 04709.1.1 ity of 3.412.2.7 [place] .3Myra646554 MD Renteria8 [facility] 2021-10-25 2021-10-25 Travel 1.2.840.1 1.2.297.193 3839 [id number] [facility] 00:00:00 00:00:00 98420.1.1 350.1.13.41 ity of 3.412.2.7 [place].3.698 [place]3.226077 084.8 MD Renteria8 [facility] 2021-10-25 2021-10-25 Travel 1.2.840.1 1.2.237.496 8703 [id number] Methodi 00:00:00 00:00:[address] 3.430.2.7 0.2.7.3.698 Ho spita .3.596678 084.8 l .8 2021-10-25 2021-10-25 Nesha Castro, 1.2.840.1 [id number] [facility] 00:00:00 00:00:00 Rosanne 09741.1.1 ity of 3.412.2.7 [place] .3.542762 .8 [facility] 2021-10-25 2021-10-25 Travel 1.2.840.1 1.2.240.368 0155 [id number] [facility] 00:00:00 00:00:00 95653.1.1 350.1.13.41 ity of 3.412.2.7 [place]7.3.698 [place] .3.224479 084.8 MD Renteria8 [facility] 2021-10-25 2021-10-25 Travel 1.2.840.1 1.2.104.100 2012 [id number] Methodi 00:00:00 00:00:[address] 3.430.2.7 0.2.7.3.698 Ho spita .3.407122 084.8 l .8 2021-10-24 2021-10-24 Gemma Betancourt, 1.2.840.1 [id number] 1088 [id number] Univers 00:00:00 00:00:00 Only Deena Goldberg 32123.1.1 ity of 3.412.2.7 [place] .3.597543 MD [facility] 2021-10-24 2021-10-24 [facility] 1.2.840.1 [id number] 1088 [id number] Univers 00:00:00 00:00:00 Only Deena Goldberg 25125.1.1 ity of 3.412.2.7 [place] .3.036086 MD [facility] 2021-10-23 2021-10-23 [facility] 1.2.840.1 [id number] 05994 43711 Univers 10:00:48 23:59:00 Encounter Van FMyra 35546.1.1 it y of 3.412.2.7 [place] .3.474410 MD [facility] 2021-10-23 2021-10-23 [facility] 1.2.840.1 [id number] [id number] Univers 10:00:48 23:59:00 Encounter Van Dorado 84527.1.1 it y of 3.412.2.7 [place] .3.349702 MD [facility] 2021-10-23 2021-10-23 [facility] 1.2.840.1 [id number] Univers 09:00:00 09:59:00 Encounter Deena Goldberg 80134.1.1 i ty of 3.412.2.7 [place] .3.215505 MD [facility] 2021-10-23 2021-10-23 [facility] 1.2.840.1 [id number] Univers 09:00:00 09:59:00 Encounter Deena Goldberg 55078.1.1 i ty of 3.412.2.7 [place] .3.634659 MD [facility] 2021-10-23 2021-10-23 [facility] 1.2.840.1 [id number] Univers 00:00:00 00:00:00 Only Lyndsay 52500.1.1 ity of 3.412.2.7 [place] .3.314362 MD [facility] 2021-10-23 2021-10-23 Travel 1.2.840.1 1.2.512.895 3066 [id number] Univers 00:00:00 00:00:00 24643.1.1 350.1.13.41 ity of 3.412.2.7 2.[place].7.3.698 [place] .3.942300 084.8 MD [facility] 2021-10-23 2021-10-23 Documentat Facciolli, 1.2.840.1 [id number] Univers 00:00:00 00:00:00 america Watters 81533.1.1 ity of 3.412.2.7 [place] .3.178142 MD [facility] 2021-10-23 2021-10-23 Orders Patten, 1.2.840.1 [id number] 4712 Univers 00:00:00 00:00:00 Only Lyndsay 24273.1.1 ity of 3.412.2.7 [place] .3.732868 MD [facility] 2021-10-23 2021-10-23 Travel 1.2.840.1 1.2.611.089 9431 135540 Univers 00:00:00 00:00:00 96393.1.1 350.1.13.41 ity of 3.412.2.7 2.[place].7.3.698 [place] .3.015766 084.8 MD [facility] 2021-10-23 2021-10-23 Documentat Facciolli, 1.2.840.1 [id number] Univers 00:00:00 00:00:00 america Watters 71720.1.1 ity of 3.412.2.7 [place] .3.902553 MD [facility] 2021-10-22 2021-10-22 Outpatient R MACARIO [facility] ANS [id number] Univers 06:28:00 08:47:00 ARAMIS ity of [facility] 2021-10-22 2021-10-22 Hospital [facility] 1.2.840.114 [id number] Univers 06:28:00 08:47:00 Encounter Aramis JUARES 350.1.13.10 it[place] of [place] [id number] [facility] [address] 2021-10-22 2021-10-22 Surgery [facility] 1.2.063.880 3916 6621 Univers 07:30:00 08:39:00 Aramis JUARES 350.1.13.10 [facility] [place] [id number] [facility] [address] 2021-10-22 2021-10-22 Anesthesia SmithkristalChris [facility] 1.2.840.11 4 [id number] Univers 07:28:00 08:07:00 Event Jordi Balbuena 350.1.13.10 it[place] of [place] [id number] [facility] 0[address] Branch 2021-10-22 2021-10-22 Orders Doctor MYERS 1.2.840.114 [id number] Univers 00:00:00 00:00:00 Only Unassigned, JUSTIN 350.1.13.10 ity of [place] [facility] 4.2.7.2.686 [place] as 306.7261937 [place] [address] Branch 2021-10-22 2021-10-22 Orders Niya, 1.2.840.1 [id number] [id number] Univers 00:00:00 00:00:00 Only Deena Goldberg 55170.1.1 ity of 3.412.2.7 [place] .3Myra167476 .8 [facility] 2021-10-22 2021-10-22 Nesha Castro, 1.2.840.1 [id number] Univers 00:00:00 00:00:00 Rosanne 86718.1.1 ity of 3.412.2.7 [place] .3.907561 MD Renteria8 [facility] 2021-10-22 2021-10-22 Gemma Betancourt, 1.2.840.1 [id number] 1088 [id number] Univers 00:00:00 00:00:00 Only Deena Goldberg 60437.1.1 ity of 3.412.2.7 [place] .3.919590 MD Renteria8 [facility] 2021-10-22 2021-10-22 Nesha Castro, 1.2.840.1 [id number] 9619 Univers 00:00:00 00:00:00 Rosanne 07369.1.1 ity of 3.412.2.7 [place] .3.671335 MD Renteria8 [facility] 2021-10-19 2021-10-19 Laboratory Only, Adc Test [facility] 1.2.840. 114 [id number] Univers 10:30:00 10:45:00 Only Aramis Donaldson [place] [facility] 350.1.13.1 0 ity of [place] 4.2.7.2.686 [facility] [id number] [address] 2021-10-19 2021-10-19 Outpatient R MACARIO [facility] [id number] Univers 10:30:00 10:30:00 ARAMIS ity of [facility] 2021-10-18 2021-10-18 [facility] Van Wolf 1.2.840.1 [id number] Univers 13:17:59 23:59:00 Encounter Henrry Euceda 04934.1.1 ity of 3.412.2.7 [place] .3.473547 MD [facility] 2021-10-18 2021-10-18 [facility] Van Wolf 1.2.840.1 [id number] Univers 13:17:59 23:59:00 Encounter Henrry Euceda 26914.1.1 ity of 3.412.2.7 [place] .3.844866 MD [facility] 2021-10-18 2021-10-18 [facility], 1.2.840.1 [id number] [id number] Univers 09:54:26 13:16:00 Encounter Van CampaMyra 85458.1.1 it y of 3.412.2.7 [place] .3.452340 MD [facility] 2021-10-18 2021-10-18 [facility], 1.2.840.1 [id number] 78718 [id number] Univers 09:54:26 13:16:00 Encounter Van Dorado 04331.1.1 it y of 3.412.2.7 [place] .3.671952 MD [facility] 2021-10-18 2021-10-18 [facility] 1.2.840.1 [id number] Univers 09:00:00 09:53:00 Encounter Deena Goldberg 54744.1.1 i ty of 3.412.2.7 [place] .3.826350 MD [facility] 2021-10-18 2021-10-18 [facility] 1.2.840.1 [id number] Univers 09:00:00 09:53:00 Encounter Deena Goldberg 96877.1.1 i ty of 3.412.2.7 [place] .3.106229 MD [facility] 2021-10-18 2021-10-18 [facility] 1.2.840.1 [id number] 1088 [id number] Univers 00:00:00 00:00:00 Only Deena Goldberg 86535.1.1 ity of 3.412.2.7 [place] .3.832735 MD [facility] 2021-10-18 2021-10-18 Travel 1.2.840.1 1.2.718.069 5253 [id number] Univers 00:00:00 00:00:00 97864.1.1 350.1.13.41 ity of 3.412.2.7 2.2[place]7.3.698 [place] .3.171399 084.8 MD [facility] 2021-10-18 2021-10-18 Orders Niya, 1.2.840.1 [id number] 1088 [id number] Univers 00:00:00 00:00:00 Only Deena Goldberg 99754.1.1 ity of 3.412.2.7 [place] .3.226088 MD Renteria8 [facility] 2021-10-18 2021-10-18 Travel 1.2.840.1 1.2.776.377 0904 [id number] Univers 00:00:00 00:00:00 30511.1.1 350.1.13.41 ity of 3.412.2.7 2.[place].7.3.698 [place] .3.585119 084.8 .8 [facility] 2021-10-17 2021-10-17 Pecan Grower Keven, Adc Lab Main [facility] 1.2.8 40.114 [id number] Univers 14:30:00 14:45:00 Visit Aramis Donaldson 350.1.13.1 0 it[place] of [place].2.[place] [id number] [place] [address] 2021-10-17 2021-10-17 Outpatient R [facility] [id number] Univers 14:30:00 14:30:00 ARAMIS ity of [facility] 2021-10-17 2021-10-17 Orders Doctor MYERS 1.2.840.114 [id number] Univers 00:00:00 00:00:00 Only Unassigned, JUSTIN 350.1.13.10 [email or web address] 4.2.7.2.686 [place] as [id number] [address] 2021-10-15 2021-10-15 Orders Niya, 1.2.840.1 [id number] [id number] Univers 00:00:00 00:00:00 Only Deena Goldberg 72926.1.1 ity of 3.412.2.7 [place] .3.685586 MD Renteria8 [facility] 2021-10-15 2021-10-15 [facility], 1.2.840.1 [id number] 1088 [id number] Univers 00:00:00 00:00:00 Only Deena Goldberg 34926.1.1 ity of 3.412.2.7 [place] .3.472344 MD Renteria8 [facility] 2021-10-11 2021-10-11 [facility] Van Dorado 1.2.840.1 [id number] Univers 11:25:06 23:59:00 Encounter Henrry Euceda 56226.1.1 ity of 3.412.2.7 [place] .3.649819 MD Renteria8 [facility] 2021-10-11 2021-10-11 [facility] Van Dorado 1.2.840.1 [id number] [facility] 11:25:06 23:59:00 Encounter Henrry Euceda 03771.1.1 ity of 3.412.2.7 [place] .3.992963 MD Renteria8 [facility] 2021-10-11 2021-10-11 Office [facility], 1.2.840.1 [id number] Univers 13:00:00 13:59:12 Visit Van Dorado 81347.1.1 ity of 3.412.2.7 [place] .3.899774 MD Renteria8 [facility] 2021-10-11 2021-10-11 [facility], 1.2.840.1 [id number] Univers 13:00:00 13:59:12 Visit Van Dorado 74308.1.1 ity of 3.412.2.7 [place] .3.429633 MD Renteria8 [facility] 2021-10-11 2021-10-11 [facility] 1.2.840.1 [id number] [id number] Univers 10:47:42 11:24:00 Encounter Van Dorado 71902.1.1 it y of 3.412.2.7 [place] .3Myra669691 MD Renteria8 [facility] 2021-10-11 2021-10-11 [facility], 1.2.840.1 [id number] [id number] Univers 10:47:42 11:24:00 Encounter Van Dorado 85933.1.1 it y of 3.412.2.7 [place] .3.676882 MD [facility] 2021-10-11 2021-10-11 [facility], 1.2.840.1 [id number] Univers 08:45:00 10:46:00 Encounter Van Campa. 84202.1.1 it y of 3.412.2.7 [place] .3.747169 MD [facility] 2021-10-11 2021-10-11 [facility], 1.2.840.1 [id number] Univers 08:45:00 10:46:00 Encounter Van CampaMyra 14522.1.1 it y of 3.412.2.7 [place] .3.017307 MD [facility] 2021-10-11 2021-10-11 Gemma Betancourt, 1.2.840.1 [id number] 1088 [id number] Univers 00:00:00 00:00:00 Only Deena Goldberg 03065.1.1 ity of 3.412.2.7 [place] .3.979397 MD [facility] 2021-10-11 2021-10-11 Travel 1.2.840.1 1.2.828.153 8783 [id number] Univers 00:00:00 00:00:00 21666.1.1 350.1.13.41 ity of 3.412.2.7 2.[place]7.3.698 [place] .3.056153 084.8 MD [facility] 2021-10-11 2021-10-11 Gemma Betancourt 1.2.840.1 [id number] 1088 [id number] Univers 00:00:00 00:00:00 Only Deena Goldberg 33140.1.1 ity of 3.412.2.7 [place] .3.779019 MD [facility] 2021-10-11 2021-10-11 Travel 1.2.840.1 1.2.223.744 7858 [id number] Univers 00:00:00 00:00:00 01093.1.1 350.1.13.41 ity of 3.412.2.7 2.[place].7.3.698 [place] .3.037618 084.8 MD [facility] 2021-10-10 2021-10-10 [facility], 1.2.840.1 [id number] 1088 [id number] Univers 00:00:00 00:00:00 Only Deena Goldberg 25366.1.1 ity of 3.412.2.7 [place] .3.761141 MD [facility] 2021-10-10 2021[facility]10-10 [facility] 1.2.840.1 [id number] 1088 [id number] Univers 00:00:00 00:00:00 Only Deena Goldberg 66181.1.1 ity of 3.412.2.7 [place] .3.085744 MD [facility] 2021-10-09 2021-10-09 [facility], 1.2.840.1 [id number] [id number] Univers 10:24:09 23:59:00 Encounter Van F. 47721.1.1 it y of 3.412.2.7 [place] .3.471388 MD [facility] 2021-10-09 2021-10-09 [facility], 1.2.840.1 [id number] [id number] Univers 10:24:09 23:59:00 Encounter Van F. 99249.1.1 it y of 3.412.2.7 [place] .3.856558 MD [facility] 2021-10-09 2021-10-09 [facility], 1.2.840.1 [id number] [id number] Univers 09:30:00 10:23:00 Encounter Deena Goldberg 58947.1.1 i ty of 3.412.2.7 [place] .3.591906 MD [facility] 2021-10-09 2021-10-09 [facility] MACK Betancourt, 1.2.840.1 [id number] Univers 09:30:00 10:23:00 Encounter Deena Goldberg 17846.1.1 i ty of 3.412.2.7 [place] .3.574997 MD [facility] 2021-10-09 2021-10-09 Travel 1.2.840.1 1.2.560.965 2354 [id number] Univers 00:00:00 00:00:00 55653.1.1 350.1.13.41 ity of 3.412.2.7 2.[place]7.3.698 [place] .3.971320 084.8 MD Renteria8 [facility] 2021-10-09 2021-10-09 Travel 1.2.840.1 1.2.134.596 5709 [id number] Univers 00:00:00 00:00:00 51208.1.1 350.1.13.41 ity of 3.412.2.7 2.[place].7.3.698 [place] .3.801377 084.8 MD [facility] 2021-10-05 2021-10-05 [facility] Niya, 1.2.840.1 [id number] 1088 [id number] Univers 00:00:00 00:00:00 Only Deena Goldberg 53164.1.1 ity of 3.412.2.7 [place] .3.019457 MD [facility] 2021-10-05 2021-10-05 [facility] Niya, 1.2.840.1 [id number] Univers 00:00:00 00:00:00 Only Deena Goldberg 46421.1.1 ity of 3.412.2.7 [place] .3.713768 MD [facility] [facility] 2021-10-04 2021-10-04 [facility] Van Wolf 1.2.840.1 [id number] Univers 13:12:32 23:59:00 Radha Olsen 32175.1.1 ity of 3.412.2.7 [place] .3.660676 MD Renteria8 [facility] 2021-10-04 2021-10-04 [facility] [place]. 1.2.840.1 [id number] Univers 13:12:32 23:59:00 Encounter Radha Negro 76895.1.1 ity of 3.412.2.7 [place] .3.162155 .8 [facility] 2021-10-04 2021-10-04 [facility], 1.2.840.1 [id number] Univers 10:34:58 13:11:00 Encounter [place] 11472.1.1 it y of 3.412.2.7 [place] .3.495330 MD Renteria8 [facility] 2021-10-04 2021-10-04 [facility], 1.2.840.1 [id number] Univers 10:34:58 13:11:00 Encounter [place] 09493.1.1 it y of 3.412.2.7 [place] .3.426395 MD Renteria8 [facility] 2021-10-04 2021-10-04 Gemma Betancourt, 1.2.840.1 [id number] Univers 00:00:00 00:00:00 Only Deena Goldberg 68263.1.1 ity of 3.412.2.7 [place] .3.228956 MD Renteria8 [facility] 2021-10-04 2021-10-04 Documentat Brijesh, 1.2.840.1 [id number] Univers 00:00:00 00:00:00 ion Marely 33039.1.1 ity of 3.412.2.7 [place] .3.850506 MD Renteria8 [facility] 2021-10-04 2021-10-04 Travel 1.2.840.1 1.2.913.392 [id number] Univers 00:00:00 00:00:00 61873.1.1 350.1.13.41 ity of 3.412.2.7 2.2.7.3.698 [place] .3.418752 084.8 MD Renteria8 [facility] 2021-10-04 2021-10-04 Gemam Betancourt, 1.2.840.1 [id number] Univers 00:00:00 00:00:00 Only Deena Goldberg 33261.1.1 ity of 3.412.2.7 [place] .3.883722 MD Renteria8 [facility] 2021-10-04 2021-10-04 Documentat Gonzalez, 1.2.840.1 [id number] Univers 00:00:00 00:00:00 ion Marely 05131.1.1 ity of 3.412.2.7 [place] .3.513299 MD Renteria8 [facility] 2021-10-04 2021-10-04 Travel 1.2.840.1 1.2.115.147 3775 [id number] Univers 00:00:00 00:00:00 69691.1.1 350.1.13.41 ity of 3.412.2.7 [place].3.698 [place] .3.667201 084.8 MD Rojas [facility] 2021-10-03 2021-10-03 Gemma Betancourt, 1.2.840.1 [id number] Univers 00:00:00 00:00:00 Only Deena Goldberg 74912.1.1 ity of 3.412.2.7 [place] .3.694788 MD Rojas [facility] 2021-10-03 2021-10-03 Gemma Betancourt, 1.2.840.1 [id number] 1088 [id number] Univers 00:00:00 00:00:00 Only Deena Goldberg 48732.1.1 ity of 3.412.2.7 [place] .3.988753 MD Rojas [facility] 2021-10-02 2021-10-02 [facility], 1.2.840.1 [id number] Univers 09:54:12 23:59:00 Encounter Van Campa. 13163.1.1 it y of 3.412.2.7 [place] .3.802208 MD Renteria8 [facility] 2021-10-02 2021-10-02 [facility] 1.2.840.1 [id number] Univers 09:54:12 23:59:00 Encounter Van Dorado 57492.1.1 it y of 3.412.2.7 [place] .3.337719 MD Renteria8 [facility] 2021-10-02 2021-10-02 [facility] 1.2.840.1 [id number] Univers 09:00:00 09:53:00 Encounter Deena Goldberg 00563.1.1 i ty of 3.412.2.7 [place] .3.044076 MD Rojas [facility] 2021-10-02 2021-10-02 [facility], 1.2.840.1 [id number] [id number] Univers 09:00:00 09:53:00 Encounter Deena Goldberg 59743.1.1 i ty of 3.412.2.7 [place] .3.445132 MD Rojas [facility] 2021-10-02 2021-10-02 Travel 1.2.840.1 1.2.457.164 6232 [id number] Univers 00:00:00 00:00:00 78440.1.1 350.1.13.41 ity of 3.412.2.7 [place]7.3.698 [place]3.7729[place] 084.Inez Rojas [facility] 2021-10-02 2021-10-02 Travel 1.2.840.1 1.2.018.488 4933 [id number] Univers 00:00:00 00:00:00 00270.1.1 350.1.13.41 ity of 3.412.2.7 [place]7.3.698 [place] .3.199127 084Myra8 MD Rojas [facility] 2021-10-01 2021-10-01 [facility], 1.2.840.1 [id number] Univers 00:00:00 00:00:00 Only Deena Goldberg 74320.1.1 ity of 3.412.2.7 [place] .3.508159 MD Renteria8 [facility] 2021-10-01 2021-10-01 Nesha Castro, 1.2.840.1 [id number] Univers 00:00:00 00:00:00 Rosanne 37526.1.1 ity of 3.412.2.7 [place] .3.043109 MD Renteria8 [facility] 2021-10-01 2021-10-01 Gemma Betancourt, 1.2.840.1 [id number] [id number] Univers 00:00:00 00:00:00 Only Deena Goldberg 73469.1.1 ity of 3.412.2.7 [place] .3.785596 MD Renteria8 [facility] 2021-10-01 2021-10-01 Nesha Castro, 1.2.840.1 [id number] Univers 00:00:00 00:00:00 Rosanne 75484.1.1 ity of 3.412.2.7 [place] .3.778532 MD Renteria8 [facility] 2021-09-28 2021-09-28 Gemma Betancourt, 1.2.840.1 [id number] 1087 [id number] Univers 00:00:00 00:00:00 Only Deena Goldberg 07061.1.1 ity of 3.412.2.7 [place] .3.137869 MD Renteria8 [facility] 2021-09-28 2021-09-28 Gemma Betancourt, 1.2.840.1 [id number] 1087 [id number] Univers 00:00:00 00:00:00 Only Deena Goldberg 20739.1.1 ity of 3.412.2.7 [place] .3.962291 MD Renteria8 [facility] 2021-09-27 2021-09-27 [facility] Sadi, 1.2.840.1 [id number] Univers 10:44:23 23:59:00 Encounter Van KatherynMyra 99782.1.1 it y of 3.412.2.7 [place] .3.315574 MD Renteria8 [facility] 2021-09-27 2021-09-27 [facility], 1.2.840.1 [id number] Univers 10:44:23 23:59:00 Encounter Van KatherynMyra 57670.1.1 it y of 3.412.2.7 [place] .3.894043 MD Renteria8 [facility] 2021-09-27 2021-09-[address] [facility], 1.2.840.1 [id number] [facility] 14:00:00 14:45:03 Visit Van KatherynMyra 47427.1.1 ity of 3.412.2.7 [place] .3.637418 MD Renteria8 [facility] 2021-09-27 2021-09-27 [facility], 1.2.840.1 [id number] 1907 [facility] 14:00:00 14:45:03 Visit Van KatherynMyra 60200.1.1 ity of 3.412.2.7 [place] .3.369068 MD Renteria8 [facility] 2021-09-27 2021-09-27 [facility], 1.2.840.1 [id number] Univers 09:45:00 10:43:00 Encounter Romeo 36697.1.1 it y of Jovanna 3.412.2.7 [place] .3.805809 MD Renteria8 [facility] 2021-09-27 2021-09-27 [facility], 1.2.840.1 [id number] Univers 09:45:00 10:43:00 Encounter Romeo 50923.1.1 it y of Jovanna 3.412.2.7 [place] .3.741545 MD Renteria8 [facility] 2021-09-27 2021-09-27 Outpatient [facility] [id number] 00:00:00 00:00:00 VAN jimenez 2021-09-27 2021-09-27 Travel 1.2.840.1 1.2.399.947 7078 [id number] Univers 00:00:00 00:00:00 41338.1.1 350.1.13.41 ity of 3.412.2.7 [place]7.3.698 [place] .3.177406 084.8 MD Renteria8 [facility] 2021-09-27 2021-09-27 Gemma Betancourt 1.2.840.1 [id number] 1087 [id number] Univers 00:00:00 00:00:00 Only Deena Ministerio 76278.1.1 ity of 3.412.2.7 [place] .3.455973 MD Renteria8 [facility] 2021-09-27 2021-09-27 Travel 1.2.840.1 1.2.113.477 3123 [id number] Univers 00:00:00 00:00:00 63712.1.1 350.1.13.41 ity of 3.412.2.7 [place]7.3.698 [place] .3.415118 084.8 MD Renteria8 [facility] 2021-09-27 2021-09-27 Gemma Betancourt 1.2.840.1 [id number] [id number] Univers 00:00:00 00:00:00 Only Deena Ministerio 22591.1.1 ity of 3.412.2.7 [place] .3.141851 MD Rojas [facility] 2021-09-25 2021-09-25 Tima Linn 1.2.840.1 [id number] Univers 14:00:00 14:18:04 Marely Hays 27101.1.1 ity of 3.412.2.7 [place] .3.725764 MD Rojas [facility] 2021-09-25 2021-09-25 Tima French 1.2.840.1 [id number] Univers 14:00:00 14:18:04 Marely White 48198.1.1 ity of 3.412.2.7 [place] .3.822519 MD Renteria8 [facility] 2021-09-25 2021-09-25 Orders Little, 1.2.840.1 [id number] Univers 00:00:00 00:00:00 Only Marlen 74529.1.1 ity of 3.412.2.7 [place] .3.590406 .8 [facility] 2021-09-25 2021-09-25 [facility], 1.2.840.1 [id number] Univers 00:00:00 00:00:00 Only Marlen 42289.1.1 ity of 3.412.2.7 [place] .3.481935 MD Renteria8 [facility] 2021-09-24 2021-09-24 [facility], 1.2.840.1 [id number] Univers 13:00:00 23:59:00 Encounter Van Dorado 92252.1.1 it y of 3.412.2.7 [place] .3.861648 .8 [facility] 2021-09-24 2021-09-24 [facility], 1.2.840.1 [id number] Univers 13:00:00 23:59:00 Encounter Van Dorado 85148.1.1 it y of 3.412.2.7 [place] .3.708197William Renteria8 [facility] 2021-09-24 2021-09-24 Office Canelo Alexandre 1.2.840.1 [id number] Univers 14:30:00 16:22:01 Visit Ludwig Vega.1.1 ity of 3.412.2.7 [place] .3Myra104705William Renteria8 [facility] 2021-09-24 2021-09-24 Office Canelo Myles 1.2.840.1 [id number] Univers 14:30:00 16:22:01 Visit Adachi, Ludwig 04826.1.1 ity of 3.412.2.7 [place] .3Qasim777254William Rojas [facility] 2021-09-24 2021-09-24 [facility], 1.2.840.1 [id number] Univers 10:03:59 12:59:00 Encounter Van CampaMyra 08276.1.1 it y of 3.412.2.7 [place] .3Qasim255316William Renteria8 [facility] 2021-09-24 2021-09-24 [facility], 1.2.840.1 [id number] [id number] Univers 10:03:59 12:59:00 Encounter Van KatherynMyra 28356.1.1 it y of 3.412.2.7 [place] .3Qasim050097William Rojas [facility] 2021-09-24 2021-09-24 [facility], 1.2.840.1 [id number] Univers 09:30:00 10:02:00 Encounter Van Dorado 78988.1.1 it y of 3.412.2.7 [place] .3Qsaim365802William Renteria8 [facility] 2021-09-24 2021-09-24 [facility], 1.2.840.1 [id number] Univers 09:30:00 10:02:00 Encounter Van CampaMyra 24796.1.1 it y of 3.412.2.7 [place] .3Qasim155572William Rojas [facility] 2021-09-24 2021-09-24 [facility], 1.2.840.1 [id number] Univers 00:00:00 00:00:00 Only Marlen 75260.1.1 ity of 3.412.2.7 [place] .3Qasim825626William Rojas [facility] 2021-09-24 2021-09-24 Travel 1.2.840.1 1.2.308.255 6919 [id number] Univers 00:00:00 00:00:00 83782.1.1 350.1.13.41 ity of 3.412.2.7 2.2.7.3.698 [place] .3.548012 084.8 MD Rojas [facility] 2021-09-24 2021-09-24 Orders Niya, 1.2.840.1 [id number] 1087 [id number] Univers 00:00:00 00:00:00 Only Deena Goldberg 25518.1.1 ity of 3.412.2.7 [place] .3.182373 MD Rojas [facility] 2021-09-24 2021-09-24 Orders Sidney, 1.2.840.1 [id number] Univers 00:00:00 00:00:00 Only Marlen 41932.1.1 ity of 3.412.2.7 [place] .3.791716 MD Rojas [facility] 2021-09-24 2021-09-24 Travel 1.2.840.1 1.2.964.802 2927 [id number] Univers 00:00:00 00:00:00 97092.1.1 350.1.13.41 ity of 3.412.2.7 2.2.7.3.698 [place] .3.152307 084.8 MD Rojas [facility] 2021-09-24 2021-09-24 Orders Niya, 1.2.840.1 [id number] [id number] Univers 00:00:00 00:00:00 Only Deena Goldberg 82113.1.1 ity of 3.412.2.7 [place] .3.233097 MD Rojas [facility] 2021-09-21 2021-09-21 Orders Abdias, 1.2.840.1 [id number] Univers 00:00:00 00:00:00 Only Moe Maier 32461.1.1 i ty of 3.412.2.7 [place] .3.263543 MD Rojas [facility] 2021-09-21 2021-09-21 Orders Abdias, 1.2.840.1 [id number] Univers 00:00:00 00:00:00 Only Moe Maier 22119.1.1 i ty of 3.412.2.7 [place] .3Myra407737 MD Renteria8 [facility] [place] 2021-09-18 2021-09-18 [facility] Van . 1.2.840.1 [id number] Univers 13:16:17 23:59:00 Encounter Mary Quiroga 04591.1.1 ity of 3.412.2.7 [place] .3.328406 MD Renteria8 [facility] 2021-09-18 2021-09-18 [facility]. 1.2.840.1 [id number] Univers 13:16:17 23:59:00 Encounter Mary Quiroga 56803.1.1 ity of 3.412.2.7 [place] .3.550010 MD Rojas [facility] 2021-09-18 2021-09-18 [facility], 1.2.840.1 [id number] [id number] Univers 10:24:19 13:15:00 Encounter Cynthia Diehl 94454.1.1 ity of 3.412.2.7 [place] .3.646192 MD Renteria8 [facility] [place] 2021-09-18 2021-09-18 [facility], 1.2.840.1 [id number] [id number] Univers 10:24:19 13:15:00 Encounter Cynthia Diehl 67163.1.1 ity of 3.412.2.7 [place] .3.732351 MD Renteria8 [facility] 2021-09-18 2021-09-18 [facility], 1.2.840.1 [id number] Univers 09:30:00 10:23:00 Encounter Cynthia Diehl 89964.1.1 ity of 3.412.2.7 [place] .3Myra321255 MD Renteria8 [facility] 2021-09-18 2021-09-18 [facility], 1.2.840.1 [id number] [id number] Univers 09:30:00 10:23:00 Ayse PatelMyra 65480.1.1 ity of 3.412.2.7 [place] .3.652968 MD Renteria8 [facility] 2021-09-18 2021-09-18 Travel 1.2.840.1 1.2.864.385 6749 [id number] Univers 00:00:00 00:00:00 60222.1.1 350.1.13.41 ity of 3.412.2.7 2.2.7.3.698 [place] .3.782054 084.8 MD Rojas [facility] 2021-09-18 2021-09-18 Travel 1.2.840.1 1.2.777.430 5364 [id number] Univers 00:00:00 00:00:00 32584.1.1 350.1.13.41 ity of 3.412.2.7 2.2.7.3.698 [place] .3.375625 084.8 MD Rojas [facility] 2021-09-17 2021-09-17 Gemma Betancourt, 1.2.840.1 [id number] 1087 [id number] Univers 00:00:00 00:00:00 Only Deena Goldberg 04605.1.1 ity of 3.412.2.7 [place] .3.969350 MD Rojas [facility] 2021-09-17 2021-09-17 Nesha Sarah 1.2.840.1 [id number] Univers 00:00:00 00:00:00 Hanna Lubin 72325.1.1 ity of 3.412.2.7 [place] .3.272135 MD Rojas [facility] 2021-09-17 2021-09-17 Gemma Betancourt 1.2.840.1 [id number] Univers 00:00:00 00:00:00 Only Deena Goldberg 64230.1.1 ity of 3.412.2.7 [place] .3.586552 MD Rojas [facility] 2021-09-17 2021-09-17 Nesha Sarah, 1.2.840.1 [id number] Univers 00:00:00 00:00:00 Reina 70938.1.1 ity of 3.412.2.7 [place] .3.480237 MD Rojas [facility] 2021-09-11 2021-09-11 [facility], 1.2.840.1 [id number] Univers 11:00:00 23:59:00 Encounter Deena Goldberg 81987.1.1 i ty of 3.412.2.7 [place] .3.733260 MD Rojas [facility] 2021-09-11 2021-09-11 [facility], 1.2.840.1 [id number] Univers 11:00:00 23:59:00 Encounter Deena Goldberg 19615.1.1 i ty of 3.412.2.7 [place] .3.009469 MD Rojas [facility] 2021-09-11 2021-09-11 Travel 1.2.840.1 1.2.971.215 5993 [id number] Univers 00:00:00 00:00:00 60180.1.1 350.1.13.41 ity of 3.412.2.7 2.2.7.3.698 [place] .3.244039 084.8 MD Rojas [facility] 2021-09-11 2021-09-11 Travel 1.2.840.1 1.2.923.532 1581 [id number] Univers 00:00:00 00:00:00 56228.1.1 350.1.13.41 ity of 3.412.2.7 2.2.7.3.698 [place] .3.409813 084.8 MD Rojas [facility] 2021-09-10 2021-09-10 [facility], 1.2.840.1 [id number] Univers 10:12:44 23:59:00 Encounter Van Dorado 32827.1.1 it y of 3.412.2.7 [place] .3.640183 MD Rojas [facility] 2021-09-10 2021-09-10 [facility], 1.2.840.1 [id number] [id number] Univers 10:12:44 23:59:00 Encounter Van CampaMyra 46728.1.1 it y of 3.412.2.7 [place] .3.212378 MD Renteria8 [facility] 2021-09-10 2021-09-10 [facility], 1.2.840.1 [id number] Univers 08:30:00 10:11:00 Encounter Deena Goldberg 83485.1.1 i ty of 3.412.2.7 [place] .3.442821 .8 [facility] 2021-09-10 2021-09-10 [facility], 1.2.840.1 [id number] [id number] Univers 08:30:00 10:11:00 Encounter Deena Goldberg 57983.1.1 i ty of 3.412.2.7 [place] .3.125248 MD Renteria8 [facility] 2021-09-10 2021-09-10 Travel 1.2.840.1 1.2.546.133 4485 [id number] Univers 00:00:00 00:00:00 23172.1.1 350.1.13.41 ity of 3.412.2.7 2.2.7.3.698 [place] .3.958961 084.8 MD Rojas [facility] 2021-09-10 2021-09-10 Travel 1.2.840.1 1.2.571.608 7495 [id number] Univers 00:00:00 00:00:00 28264.1.1 350.1.13.41 ity of 3.412.2.7 2.2.7.3.698 [place] .3.065810 084.8 MD Rojas [facility] 2021-09-07 2021-09-07 [facility], 1.2.840.1 [id number] Univers 00:00:00 00:00:00 Only Deena Goldberg 89399.1.1 ity of 3.412.2.7 [place] .3.432460 .8 [facility] 2021-09-07 2021-09-07 [facility] Niya, 1.2.840.1 [id number] 1087 [id number] Univers 00:00:00 00:00:00 Only Deena Goldberg 76543.1.1 ity of 3.412.2.7 [place] .3.529403 MD Renteria8 [facility] 2021-09-06 2021-09-06 [facility], 1.2.840.1 [id number] [id number] Univers 13:21:48 23:59:00 Encounter Jose Luisyoni 26921.1.1 it y of 3.412.2.7 [place] .3.403528 MD Renteria8 [facility] 2021-09-06 2021-09-06 [facility], 1.2.840.1 [id number] [id number] Univers 13:21:48 23:59:00 Encounter Jaleel 52804.1.1 it y of 3.412.2.7 [place] .3.386421 MD Renteria8 [facility] 2021-09-06 2021-09-06 Office [facility], 1.2.840.1 [id number] [facility] 16:00:00 16:00:00 Visit Van Dorado 58362.1.1 ity of 3.412.2.7 [place] .3.271277 MD Renteria8 [facility] 2021-09-06 2021-09-06 Office [facility], 1.2.840.1 [id number] Univers 16:00:00 16:00:00 Visit Van Dorado 64895.1.1 ity of 3.412.2.7 [place] .3.731652 MD Renteria8 [facility] 2021-09-06 2021-09-06 [facility], 1.2.840.1 [id number] Univers 10:22:16 13:20:00 Encounter Van Dorado 90680.1.1 it y of 3.412.2.7 [place] .3.820044 MD Rojas [facility] 2021-09-06 2021-09-06 [facility], 1.2.840.1 [id number] Univers 10:22:16 13:20:00 Encounter Van Dorado 06425.1.1 it y of 3.412.2.7 [place] .3.814866 MD Rojas [facility] 2021-09-06 2021-09-06 Gemma Mccall, 1.2.840.1 [id number] Univers 00:00:00 00:00:00 Only Romeo 13220.1.1 ity of Jovanna 3.412.2.7 [place] .3.391189 MD Renteria8 [facility] 2021-09-06 2021-09-06 Travel 1.2.840.1 1.2.171.647 3118 [id number] Univers 00:00:00 00:00:00 72387.1.1 350.1.13.41 ity of 3.412.2.7 2.2.7.3.698 [place] .3.979265 084.8 MD Rojas [facility] 2021-09-06 2021-09-06 Gemma Betancourt 1.2.840.1 [id number] [id number] Univers 00:00:00 00:00:00 Only Deena Goldberg 09174.1.1 ity of 3.412.2.7 [place] .3.789852 MD Rojas [facility] 2021-09-06 2021-09-06 Gemma Mccall, 1.2.840.1 [id number] Univers 00:00:00 00:00:00 Only Romeo 38424.1.1 ity of Jovanna 3.412.2.7 [place] .3.777210 MD Rojas [facility] 2021-09-06 2021-09-06 Travel 1.2.840.1 1.2.642.404 5112 [id number] Univers 00:00:00 00:00:00 62972.1.1 350.1.13.41 ity of 3.412.2.7 2.2.7.3.698 [place] .3.208600 084.8 MD Renteria8 [facility] 2021-09-06 2021-09-06 [facility], 1.2.840.1 [id number] 1087 [id number] Univers 00:00:00 00:00:00 Only Deena Goldberg 04179.1.1 ity of 3.412.2.7 [place] .3.491566 MD Renteria8 [facility] 2021-09-04 2021-09-04 [facility], Van Dorado 1.2.840.1 [id number] Univers 13:30:05 23:59:00 Encounter Melissa Molina 78337.1.1 ity of 3.412.2.7 [place] .3.176475 MD Renteria8 [facility] 2021-09-04 [facility]1 [id number] Univers 13:30:05 23:59:00 Encounter Melissa Molina 97954.1.1 ity of 3.412.2.7 [place] .3.531350 MD Renteria8 [facility] 2021-09-04 2021-09-04 [facility], 1.2.840.1 [id number] Univers 10:53:18 13:29:00 Encounter Van Dorado 82788.1.1 it y of 3.412.2.7 [place] .3.147106 MD Renteria8 [facility] 2021-09-04 2021-09-04 [facility], 1.2.840.1 [id number] Univers 10:53:18 13:29:00 Encounter Van Dorado 76045.1.1 it y of 3.412.2.7 [place] .3.945854 MD [facility]jas [facility] 2021-09-04 2021-09-04 [facility], 1.2.840.1 [id number] Univers 09:15:00 10:52:00 Encounter Deena Goldberg 97818.1.1 i ty of 3.412.2.7 [place] .3.444345 MD [facility] 2021-09-04 2021-09-04 [facility] MACK Betancourt, 1.2.840.1 [id number] Univers 09:15:00 10:52:00 Encounter Deena Goldberg 71673.1.1 i ty of 3.412.2.7 [place] .3.105514 MD [facility] 2021-09-04 2021-09-04 Travel 1.2.840.1 1.2.854.201 [id number] Univers 00:00:00 00:00:00 97942.1.1 350.1.13.41 ity of 3.412.2.7 2.[place]7.3.698 [place] .3.911658 084.8 MD [facility] 2021-09-04 2021-09-04 Travel 1.2.840.1 1.2.732.818 [id number] Univers 00:00:00 00:00:00 38353.1.1 350.1.13.41 ity of 3.412.2.7 [place].3.698 [place] .3.355706 084.8 MD [facility] 2021-09-03 2021-09-03 Gemma Betancourt, 1.2.840.1 [id number] Univers 00:00:00 00:00:00 Only Deena Goldberg 51404.1.1 ity of 3.412.2.7 [place] .3.908102 MD [facility] 2021-09-03 2021-09-03 Gemma Betancourt 1.2.840.1 [id number] Univers 00:00:00 00:00:00 Only Deena M 85802.1.1 ity of 3.412.2.7 [place] .3.150145 MD [facility] 2021-08-31 2021-08-31 Gemma Centeno 1.2.840.1 [id number] Univers 00:00:00 00:00:00 Only Cynthia R. 07126.1.1 it y of 3.412.2.7 [place] .3.183430 MD [facility] 2021-08-31 2021-08-31 [facility], 1.2.840.1 [id number] Univers 00:00:00 00:00:00 Only Cynthia R. 73532.1.1 it y of 3.412.2.7 [place] .3.134772 MD Renteria8 [facility] 2021-08-30 2021-08-30 [facility], 1.2.840.1 [id number] Univers 10:06:10 23:59:00 Encounter Van CampaMyra 33934.1.1 it y of 3.412.2.7 [place] .3.099171 MD [facility] 2021-08-30 2021-08-30 [facility] MACK VizcainoNiya, 1.2.840.1 [id number] Univers 09:15:00 10:05:00 Encounter Deena Goldberg 91144.1.1 i ty of 3.412.2.7 [place] .3.655550 MD [facility] [facility]) 2021-08-30 2021-08-30 Travel 1.2.840.1 1.2.341.973 4900 [id number] Univers 00:00:00 00:00:00 05251.1.1 350.1.13.41 ity of 3.412.2.7 [place].698 [place] .3.991019 084.8 MD [facility] 2021-08-29 2021-08-29 Formerly [facility] 1.2.840.1 [id number] 1087 [id number] Univers 00:00:00 00:00:00 Only Deena Goldberg 28208.1.1 ity of 3.412.2.7 [place] .3.707683 MD [facility] 2021-08-28 2021-08-28 [facility], 1.2.840.1 [id number] 1086 [id number] Univers 00:00:00 00:00:00 Only Deena Ministerio 08838.1.1 ity of 3.412.2.7 [place] .3.714573 MD [facility] 2021-08-24 2021-08-24 [facility], 1.2.840.1 [id number] Univers 11:00:00 23:59:00 Encounter Van Dorado 61904.1.1 it y of 3.412.2.7 [place] .3.667619 MD [facility] 2021-08-24 2021-08-24 Travel 1.2.840.1 1.2.032.585 4481 [id number] Univers 00:00:00 00:00:00 75122.1.1 350.1.13.41 ity of 3.412.2.[place].3.698 [place]3.063443 084.8 MD [facility] 2021-08-24 2021-08-24 [facility], 1.2.840.1 [id number] Univers 00:00:00 00:00:00 ion Hanna Watters 08458.1.1 ity of 3.412.2.7 [place] .3.663328 MD [facility] 2021-08-23 2021[facility]23 [facility]1 [id number] Univers 13:20:00 23:59:00 Encounter Henrry Euceda 11957.1.1 ity of 3.412.2.7 [place] .3.326119 MD [facility] 2021-08-23 2021-08-23 [facility], 1.2.840.1 [id number] Univers 11:00:00 13:19:00 Encounter Van Droado 68524.1.1 it y of 3.412.2.7 [place] .3.717245 MD [facility] 2021-08-23 2021-08-23 Travel 1.2.840.1 1.2.478.266 8749 [id number] Univers 00:00:00 00:00:00 59526.1.1 350.1.13.41 ity of 3.412.2.7 [place]7.3.698 [place]3.896525 084.8 MD [facility] 2021-08-22 2021-08-22 Gemma Betancourt, 1.2.840.1 [id number] 1086 [id number] Univers 00:00:00 00:00:00 Only Deena Goldberg 79870.1.1 ity of 3.412.2.7 [place] .3.468099 MD [facility] 2021-08-22 2021-08-22 Orders Patten, 1.2.840.1 [id number] Univers 00:00:00 00:00:00 Only Lyndsay 91374.1.1 ity of 3.412.2.7 [place] .3.711979 MD [facility] 2021-08-21 2021-08-21 [facility], 1.2.840.1 [id number] Univers 10:53:48 23:59:00 Encounter Van Dorado 91293.1.1 it y of 3.412.2.7 [place] .3.405430 MD [facility]eria8 [facility] 2021-08-21 2021-08-21 [facility], 1.2.840.1 [id number] Univers 15:30:00 15:33:42 Visit [place] Dorado 10907.1.1 ity of 3.412.2.7 [place] .3.784114 MD Rent[facility]8 [facility] 2021-08-21 2021-08-21 [facility] [place], 1.2.840.1 [id number] Univers 10:19:49 10:52:00 Encounter Romeo 26239.1.1 it y of Jovanna 3.412.2.7 [place] .3.803515 MD [facility] 2021-08-21 2021-08-21 [facility], 1.2.840.1 [id number] [id number] Univers 09:00:00 10:18:00 Encounter Deena Goldberg 19788.1.1 i ty of 3.412.2.7 [place] .3.296617 MD Renteria8 [facility] 2021-08-21 2021-08-21 Travel 1.2.840.1 1.2.148.947 5717 [id number] [facility] 00:00:00 00:00:00 09649.1.1 350.1.13.41 ity of 3.412.2.7 [place]7.3.698 [place] .3.920207 084.8 MD [facility] 2021-08-20 2021-08-20 [facility], 1.2.840.1 [id number] 1086 [id number] Univers 00:00:00 00:00:00 Only Deena Goldberg 92220.1.1 ity of 3.412.2.7 [place] .3.771229 MD [facility] 2021-08-15 2021-08-15 [facility] [place]. 1.2.840.1 [id number] Univers 12:48:05 23:59:00 Encounter Milvia Thomas 71239.1.1 ity of 3.412.2.7 [place] .3.959019 MD [facility] 2021-08-15 2021-08-15 [facility], 1.2.840.1 [id number] Univers 09:47:54 12:47:00 Encounter Van [place] 69748.1.1 it y of 3.412.2.7 [place] .3.583047 MD [facility] 2021-08-15 2021-08-15 [facility], 1.2.840.1 [id number] Univers 09:19:55 09:46:00 Encounter Romeo 27476.1.1 it y of [place] 3.412.2.7 [place] .3.887268 MD [facility] 2021-08-15 2021-08-15 Travel 1.2.840.1 1.2.388.590 7383 [id number] Univers 00:00:00 00:00:00 42039.1.1 350.1.13.41 ity of 3.412.2.7 [place]7.3.698 [place] .3.717859 084.8 MD [facility] 2021-08-14 2021-08-14 Orders [facility], 1.2.840.1 [id number] Univers 00:00:00 00:00:00 Only Cynthia PatelMyra 68143.1.1 it y of 3.412.2.7 [place] .3.135164 MD [facility] 2021-08-13 2021-08-13 [facility] [place]. 1.2.840.1 [id number] Univers 12:58:57 23:59:00 Encounter NegroRadha soto Matt 65152.1.1 ity of 3.412.2.7 [place] .3.280455 MD [facility] 2021-08-13 2021-08-13 [facility], 1.2.840.1 [id number] [id number] Univers 10:44:13 12:57:00 Encounter Van KatherynMyra 05125.1.1 it y of 3.412.2.7 [place] .3.995996 MD [facility] 2021-08-13 2021-08-13 [facility], 1.2.840.1 [id number] Univers 08:15:00 10:43:00 Encounter Deena Goldberg 27422.1.1 i ty of 3.412.2.7 [place] .3.599610 MD [facility] 2021-08-13 2021-08-13 Travel 1.2.840.1 1.2.649.411 6220 [id number] Univers 00:00:00 00:00:00 21408.1.1 350.1.13.41 ity of 3.412.2.7 2.2.7.3.698 [place] .3.302002 084.8 MD [facility] 2021-08-10 2021-08-10 Gemma Betancourt, 1.2.840.1 [id number] 1086 [id number] Univers 00:00:00 00:00:00 Only Deena Goldberg 63144.1.1 ity of 3.412.2.7 [place] .3.094802 MD [facility]8 [facility] 2021-08-09 2021-08-09 [facility], 1.2.840.1 [id number] Univers 14:40:38 23:59:00 Encounter Tima 12025.1.1 it y of 3.412.2.7 [place] .3.339301 MD [facility]8 [facility] 2021-08-09 2021-08-09 Consult [facility], 1.2.840.1 [id number] 1085 [id number] Univers 14:20:00 16:13:32 Tima 66218.1.1 ity of 3.412.2.7 [place] .3.568998 MD Renteria8 [facility] 2021-08-09 2021-08-09 [facility], 1.2.840.1 [id number] [id number] Univers 10:50:54 14:39:00 Encounter Van Dorado 95710.1.1 it y of 3.412.2.7 [place] .3.433266 MD [facility]8 [facility] 2021-08-09 2021-08-09 [facility], 1.2.840.1 [id number] Univers 13:15:00 13:30:00 Procedure Romeo 20005.1.1 it y of Jovanna 3.412.2.7 [place] .3.486571 MD [facility] 2021-08-09 2021-08-09 Gemma Betancourt, 1.2.840.1 [id number] 1086 [id number] Univers 00:00:00 00:00:00 Only Deena Goldberg 17332.1.1 ity of 3.412.2.7 [place] .3.544982 MD [facility] 2021-08-09 2021-08-09 Travel 1.2.840.1 1.2.225.062 1544 [id number] Univers 00:00:00 00:00:00 20514.1.1 350.1.13.41 ity of 3.412.2.7 2.[place].7.3.698 [place] .3.763114 084.8 MD [facility] 2021-08-09 2021-08-09 Gemma Mccall, 1.2.840.1 [id number] Univers 00:00:00 00:00:00 Only Romeo 14957.1.1 ity of [place] 3.412.2.7 [place] .3.203297 MD [facility] 2021-08-09 2021-08-09 [facility] Sadi, 1.2.840.1 [id number] Univers 00:00:00 00:00:00 Van Dorado 11688.1.1 ity of 3.412.2.7 [place] .3.674806 MD [facility] 2021-08-08 2021-08-08 Gemma Betancourt, 1.2.840.1 [id number] 1086 [id number] Univers 00:00:00 00:00:00 Only Deena Goldberg 36585.1.1 ity of 3.412.2.7 [place] .3.074271 MD [facility] 2021-08-07 2021-08-07 [facility] MACK Wolf, 1.2.840.1 [id number] Univers 10:41:29 23:59:00 Encounter Van Dorado 74173.1.1 it y of 3.412.2.7 [place] .3.156063 MD [facility] 2021-08-07 2021-08-07 [facility] Sadi, 1.2.840.1 [id number] Univers 15:00:00 15:15:19 Visit Van Dorado 93216.1.1 ity of 3.412.2.7 [place] .3.561196 MD Renteria8 [facility] 2021-08-07 2021-08-07 [facility] [place], 1.2.840.1 [id number] 1 [id number] Univers 09:00:00 10:40:00 Encounter Romeo 35406.1.1 it y of [place]ovanna 3.412.2.7 [place] .3.389390 MD Renteria8 [facility] 2021-08-07 2021-08-07 Travel 1.2.840.1 1.2.072.701 2085 [id number] Univers 00:00:00 00:00:00 41337.1.1 350.1.13.41 ity of 3.412.2.7 2.2.7.3.698 [place] .3.288639 084.8 MD Renteria8 [facility] 2021-08-06 2021-08-06 Orders Niya, 1.2.840.1 [id number] 1086 [id number] Univers 00:00:00 00:00:00 Only Deena Goldberg 61489.1.1 ity of 3.412.2.7 [place] .3.014544 MD [facility]8 [facility] 2021-08-06 2021-08-06 Orders Hardeep, 1.2.840.1 [id number] Univers 00:00:00 00:00:00 Only Velma Watters 32143.1.1 ity of 3.412.2.7 [place] .3.647052 MD [facility]8 [facility] 2021-08-06 2021-08-06 Orders Wallace, 1.2.840.1 [id number] 1086 [id number] Univers 00:00:00 00:00:00 Only Johanna 07196.1.1 ity of 3.412.2.7 [place] .3.518203 MD [facility]8 [facility] 2021-08-03 2021-08-03 [facility], 1.2.840.1 [id number] [id number] Univers 11:00:00 23:59:00 Encounter Deena Goldberg 58098.1.1 i ty of 3.412.2.7 [place] .3.741765 MD [facility] 2021-08-03 2021-08-03 Orders Cal, 1.2.840.1 [id number] Univers 00:00:00 00:00:00 Only Romeo 99631.1.1 ity of [place]ovanna 3.412.2.7 [place] .3.674153 MD [facility] 2021-08-03 2021-08-03 Travel 1.2.840.1 1.2.451.781 2816 [id number] Univers 00:00:00 00:00:00 41863.1.1 350.1.13.41 ity of 3.412.2.7 2.2.7.3.698 [place] .3.218165 084.8 MD [facility] 2021-08-02 2021-08-02 [facility] Sadi Van F. 1.2.840.1 [id number] Univers 14:20:00 23:59:00 Encounter Massimo Melissa M 76475.1.1 ity of 3.412.2.7 [place] .3.412957 MD [facility] 2021-08-02 2021-08-02 Gemma Mccall, 1.2.840.1 [id number] Univers 00:00:00 00:00:00 Only Romeo 49055.1.1 ity of [place] 3.412.2.7 [place] .3.221470 MD [facility] 2021-08-02 2021-08-02 Orders Jacobo 1.2.840.1 [id number] Univers 00:00:00 00:00:00 Only Cynthia Diehl 06648.1.1 it y of 3.412.2.7 [place] .3.659487 MD [facility] 2021-08-02 2021-08-02 Orders [facility], 1.2.840.1 [id number] Univers 00:00:00 00:00:00 Only Cynthia Diehl 37817.1.1 it y of 3.412.2.7 [place] .3.976770 MD [facility]8 [facility] 2021-08-02 2021-08-02 Travel 1.2.840.1 1.2.594.180 3130 [id number] Univers 00:00:00 00:00:00 79611.1.1 350.1.13.41 ity of 3.412.2.7 2.[place].7.3.698 [place] .3.385840 084.8 MD [facility]8 [facility] 2021-08-01 2021-08-01 Orders Doctor JOVANI 1.2.840.114 [id number] Univers 00:00:00 00:00:00 Only Unassigned, JUSTIN 350.1.13.10 ity of [place] [facility] 4.2.7.2.686 [place] as [id number] [place] [address] [place] 2021-07-31 2021-07-31 [facility], 1.2.840.1 [id number] Univers 14:00:00 23:59:00 Encounter Deena Goldberg 77624.1.1 i ty of 3.412.2.7 [place] .3.630941 MD [facility] 2021-07-31 2021[facility]07-31 [facility].2.840.1 [id number] Univers 10:58:13 13:59:00 Encounter Adriano Gonzalez 76596.1.1 ity of 3.412.2.7 [place] .3.506421 MD [facility] 2021-07-31 2021-07-31 [facility] 1.2.840.1 [id number] Univers 10:42:54 10:57:00 Encounter Deena Goldberg 10775.1.1 i ty of 3.412.2.7 [place] .3.001703 MD [facility] 2021-07-31 2021-07-31 Orders Sadi, 1.2.840.1 [id number] Univers 00:00:00 00:00:00 Only Van Dorado 25858.1.1 ity of 3.412.2.7 [place] .3.268818 MD [facility]8 [facility] 2021-07-31 2021-07-31 Travel 1.2.840.1 1.2.398.686 2381 [id number] Univers 00:00:00 00:00:00 41621.1.1 350.1.13.41 ity of 3.412.2.7 2.2.7.3.698 [place] .3.390529 084.8 MD [facility]8 [facility] 2021-07-31 2021-07-31 Gemma Betancourt, 1.2.840.1 [id number] 1085 [id number] Univers 00:00:00 00:00:00 Only Deena Goldberg 19596.1.1 ity of 3.412.2.7 [place] .3.452783 MD [facility]8 [facility] 2021-07-30 2021-07-30 [facility], 1.2.840.1 [id number] 1085 [id number] Univers 10:10:53 23:59:00 Ayse Oneal 51337.1.1 i ty of 3.412.2.7 [place] .3.786297 MD [facility] 2021-07-27 2021-07-27 Gemma Betancourt, 1.2.840.1 [id number] 1085 [id number] Univers 00:00:00 00:00:00 Only Deena Goldberg 38352.1.1 ity of 3.412.2.7 [place] .3.181150 MD [facility] 2021-07-27 2021-07-27 Gemma [facility], 1.2.840.1 [id number] Univers 00:00:00 00:00:00 Only Cynthia Diehl 80203.1.1 it y of 3.412.2.7 [place] .3.139680 MD Renteria8 [facility] [place] 2021-07-27 2021-07-27 [facility] Shirley, 1.2.840.1 [id number] Univers 00:00:00 00:00:00 Only Kimmy 66128.1.1 ity of 3.412.2.7 [place] .3.115087 MD [facility]8 [facility] 2021-07-26 2021-07-26 [facility] 1.2.840.1 [id number] Univers 08:00:00 23:59:00 Encounter 57431.1.1 it y of 3.412.2.7 [place] .3.108450 MD [facility] 2021-07-26 2021-07-26 [facility], 1.2.840.1 [id number] Univers 10:00:00 11:04:08 Visit Van Dorado 84612.1.1 ity of 3.412.2.7 [place] .3.287735 MD [facility] 2021-07-26 2021-07-26 Orders Jacobo, 1.2.840.1 [id number] Univers 00:00:00 00:00:00 Only Cynthia Diehl 12338.1.1 it y of 3.412.2.7 [place] .3.633648 MD [facility]eria8 [facility] 2021-07-26 2021-07-26 Gemma Balderas, 1.2.840.1 [id number] Univers 00:00:00 00:00:00 Only Carlene 06217.1.1 ity of Harpreet 3.412.2.7 [place] .3.654197 MD [facility]8 [facility] 2021-07-26 2021-07-26 Orders Jacobo, 1.2.840.1 [id number] Univers 00:00:00 00:00:00 Only Cynthia Diehl 12167.1.1 it y of 3.412.2.7 [place] .3.700778 MD [facility] 2021-07-26 2021-07-26 Orders [facility], 1.2.840.1 [id number] Univers 00:00:00 00:00:00 Only Cynthia Diehl 50641.1.1 it y of 3.412.2.7 [place] .3.455396 MD [facility] 2021-07-26 2021-07-26 Travel 1.2.840.1 1.2.562.588 0535 [id number] Univers 00:00:00 00:00:00 98206.1.1 350.1.13.41 ity of 3.412.2.7 2.2.7.3.698 [place] .3.247246 084.8 MD [facility] 2021-07-16 2021-07-16 Hospital 1.2.840.1 [id number] Univers 15:07:17 23:59:00 Encounter 97128.1.1 it y of 3.412.2.7 [place] .3.953337 MD [facility] 2021-07-16 2021-07-16 Follow-Up MACK Ruano, 1.2.840.1 [id number] 1085 [id number] Univers 14:00:00 15:25:55 Ibrahima Mitchell 37700.1.1 ity of 3.412.2.7 [place] .3.581923 MD [facility] 2021-07-16 2021-07-16 Travel 1.2.840.1 1.2.866.897 7898 [id number] Univers 00:00:00 00:00:00 35174.1.1 350.1.13.41 ity of 3.412.2.7 2.2.7.3.698 [place] .3.059716 084.8 MD [facility] 2021-07-06 2021-07-06 Gemma Mccall, 1.2.840.1 [id number] Univers 00:00:00 00:00:00 Only Romeo 77820.1.1 ity of Jovanna 3.412.2.7 [place] .3.912236 MD [facility]8 [facility] 2021-06-24 2021-06-30 [facility] Severo James 1.2.840.1 [id number] Univers 19:58:00 13:21:00 Encounter Van Wolf FMyra 30225.1.1 ity of [place]ad [place].412.2.7 [place] .3.483362 MD [facility]8 [facility] 2021-06-29 2021-06-29 Orders Oli, 1.2.840.1 [id number] [id number] Univers 00:00:00 00:00:00 Only Meenakshi 78083.1.1 ity of 3.412.2.7 [place] .3.791207 MD [facility]8 [facility] 2021-06-28 2021-06-28 Anesthesia Opunleonid, 1.2.840.1 [id number] Univers 15:41:25 15:41:25 Event Quyen 73468.1.1 ity of 3.412.2.7 [place] .3.047537 MD [facility]8 [facility] 2021-06-28 2021-06-28 Surgery Weldon, 1.2.840.1 [id number] Univers 12:00:00 12:45:00 Shanon 10602.1.1 ity of 3.412.2.7 [place] .3.351258 MD [facility]eria8 [facility] 2021-06-28 2021-06-28 Anesthesia Antonia Randolph 1.2.840.1 [id number] Univers 08:36:00 09:10:00 Event Jean-Paul Ramos 97880.1.1 ity of 3.412.2.7 [place] .3.425757 MD [facility] 2021-06-27 2021-06-27 Prep for Heck, 1.2.840.1 [id number] [id number] Univers 00:00:00 00:00:00 Surgery Deanndrduong 78025.1.1 ity of Deena 3.412.2.7 [place] .3.649599 MD [facility] 2021-06-27 2021-06-27 Prep for Umang, 1.2.840.1 [id number] Univers 00:00:00 00:00:00 Surgery Marcelajannaduong 88071.1.1 ity of Deena 3.412.2.7 [place] .3.150348 MD [facility] 2021-06-25 2021-06-25 Inpatient [facility] KAE [id number] 01:10:28 01:36:02 Surinder [facility] 2021-06-25 2021-06-25 Documentat Facciolli, 1.2.840.1 [id number] Univers 00:00:00 00:00:00 america Watters 31261.1.1 ity of 3.412.2.7 [place] .3.450846 MD [facility] 2021-06-25 2021-06-25 Travel 1.2.840.1 1.2.127.390 8483 [id number] Univers 00:00:00 00:00:00 09799.1.1 350.1.13.41 ity of 3.412.2.7 2.2[place]7.3.698 [place] .3.467967 084.8 MD [facility] 2021-06-24 2021-06-24 Travel 1.2.840.1 1.2.597.714 3741 [id number] Univers 00:00:00 00:00:00 86085.1.1 350.1.13.41 ity of 3.412.2.7 2.2.7.3.698 [place] .3.915182 084.8 MD [facility] 2021-06-12 2021-06-12 Outpatient EL KAE PAL [id number] 09:14:06 09:18:36 Surinder jimenez 2021-06-07 2021-06-07 Outpatient EL KAE YORK MDA [id number] 20:44:00 23:59:00 JORDI jimenez 2021-06-07 2021-06-07 Outpatient SADI, MDA MDA [id number] 08:18:34 20:43:00 VAN jimenez 2021-06-07 2021-06-07 Outpatient SADI, MDA MDA [id number] 10:32:04 11:26:00 VAN jimenez 2021-06-07 2021-06-07 Outpatient SADI, MDA MDA [id number] 07:36:46 08:17:00 VAN jimenez 2021-06-06 2021-06-06 Outpatient SADI, MDA MDA [id number] MD 10:54:40 11:29:21 VAN jimenez 2021-06-06 2021-06-06 Outpatient [facility] MDA [id number] 08:28:08 08:28:08 Surinder jimenez 2021-05-18 2021-05-18 Outpatient SADI, MDA MDA [id number] 11:02:31 11:28:36 VAN jimenez 2021-05-10 2021-05-10 Outpatient SADI, MDA MDA [id number] 09:21:04 23:59:00 VAN jimenez 2021-05-10 2021-05-10 Outpatient SADI, MDA MDA [id number] 10:26:52 11:46:16 VAN jimenez 2021-05-10 2021-05-10 Outpatient [facility] ANG[facility] MDA MDA [id number] 08:36:03 09:19:07 Surinder jimenez 2021-04-24 2021-04-24 Outpatient CAL, MDA MDA [id number] 09:52:59 09:55:01 ROMEO Cadena o barbara 2021-04-17 2021-04-17 Outpatient CAL, MDA MDA [id number] 11:23:40 23:59:00 ROMEO Cadena o barbara 2021-04-17 2021-04-17 Outpatient SADI, MDA MDA [id number] 11:48:51 14:07:07 VAN jimenez 2021-04-03 2021-04-03 Outpatient MACK MCCALL, MDA MDA [id number] 12:40:14 23:59:00 ROMEO jimenez 2021-04-03 2021-04-03 Outpatient MACK WOLF, MDA MDA [id number] MD 13:55:45 15:43:17 VAN jimenez 2021-04-03 2021-04-03 Outpatient MACK WOLF, MDA MDA [id number] MD 12:20:26 12:39:00 VAN jimenez 2021-03-27 2021-03-27 Outpatient MACK MCACLL, MDA MDA [id number] 14:30:00 23:59:00 ROMEO jimenez 2021-03-27 2021-03-27 Outpatient MACK MCCALL, MDA MDA [id number] 15:18:07 15:18:07 ROMEO jimenez 2020-09-27 2020-09-27 [facility] [id number] 00:00:00 00:00:00 PATRIC [address] 2020-09-27 2020-09-27 [facility] [id number] [place] [address] 00:00:00 00:00:00 PATRIC [address] 2020-04-18 2020-04-18 Outpatient MACK BUCKNERI, MDA MDA [id number] 00:00:00 00:00:00 VAN jimenez 2020-04-18 2020-04-18 Outpatient EL LUIS ENRIQUEEYER, MDA MDA [id number] 00:00:00 00:00:00 MARTI jimenez 2020-03-30 2020-03-30 Outpatient EL FANGMEYER, MDA MDA [id number] 12:55:21 12:55:21 MARTI jimenez 2020-03-30 2020-03-30 Outpatient EL FANGMEYER, MDA MDA [id number] 00:00:00 00:00:00 MARTI jimenez 2020-03-16 2020-03-16 Outpatient MACK WOLF, MDA MDA [id number] 12:05:56 23:59:00 VAN jimenez 2020-03-16 2020-03-16 Outpatient MACK WOLF MDA MDA [id number] 13:01:31 14:06:11 VAN Cadena o barbara 2020-03-16 2020-03-16 Outpatient MACK PITTS MDA MDA [id number] 11:00:00 12:04:00 MARTI Fordhua jimenez 2020-03-09 2020-03-09 Outpatient MACK PITTS MDA MDA [id number] 00:00:00 00:00:00 MARTI Surinderhua jimenez 2020-03-02 2020-03-02 Outpatient MACK WOLF MDA MDA [id number] 11:32:31 23:59:00 VAN Cadena o barbara 2020-03-02 2020-03-02 Outpatient MACK PITTS MDA MDA [id number] 09:00:00 11:31:00 MARTI Surinderhua jimenez 2018-12-17 2018-12-17 Outpatient KAE MDA [id number] 08:04:55 08:04:55 Surinder jimenez 2018-07-07 2018-08-06 OP Therapy nullFlavo SMR [id number] Memoria 19:00:00 05:59:00 Patients r [place] 01 l [place] [facility] 2018-06-05 2018-07-05 OP Therapy nullFlavo SMR [id number] Memoria 18:00:00 04:59:00 Patients r [place] 00 [place] [facility] 2017-12-08 2017-12-08 Cinda PEREZ [facility] [id number] [place] 11:15:00 11:15:00 t; Evelina VORA M.D. ans CHRISTI, M.D. 2017-07-18 2017-07-19 Day [facility]Fl[facility] [id number] [id number] Memoria 13:55:00 04:59:00 Surgery r [place] 04 l [facility] 2017-06-06 2017-06-07 Day [facility]Flavo [facility] [id number] Memoria 14:04:00 04:59:00 Surgery r [place] 02 l [facility] 2017-04-18 2017-04-19 Day [facility]Flavo [facility] [id number] Memoria 13:38:00 04:59:00 Surgery r [place] 01 l [facility] 2017-03-28 2017-03-29 Damien [facility] [id number] Memoria 13:32:00 04:59:00 Surgery r [place] 00 l [facility] Results Test Description Test Time Test Comments Results Result Comments Source CMV Quant PCR 2022-08-28 21:40:15 Test Item Value Reference Range Interpretation Comme nts CMV DNA PCR Target Not Detected Target Not Detected N ormal Range: Target Not (test code = IU/mL Detected.Report able Range: 5214) 34.5 to 4,000,0 00 CMV DNA IU/mL; values b etween 4,000,000 to 10 ,000,000 CMV DNA IU/mL may b e reported but these should be interpreted with caution as this range of the assay has n ot been internally veri fied. The clinical signif icance of CMV levels at 4,000 ,000 IU/ml verses those ab ove 4,000,000 is unclear. Res ults are expressed in CM V DNA IU/ml plasma. Methodo logy: The extraction and quantitation of cytomegalovi neymar (CMV) DNA in human plasma is performed using the DERRICK [employer] System. Amplification o f viral DNA is achieved using polymerase chain reaction (PCR). Internal contro ls are included to ass ess for possible amplif ication inhibitors. If inhibition is detected, the s pecimen is tested again an d if inhibition is c onfirmed the specimen is res ulted as "Invalid". When an "Invalid" results occurs, it is recommended to wait a minimum of 7-10 days be fore submitting a ne w specimen for testing. This i s an FDA-approved as say and its performance brina racteristics were verified b y the microbiology la boratory at the [facility]. Results must be interpreted within the cont ext of all relevant clinic al and laboratory find ings. [facility] [place] FerrisTMP Interpretation Antibody Screen [id number] 15:54:08 Test Item Value Reference Range Interpretation Comments TMP Auto Neg At the present ABSC Interp time, patient (test code = plasma shows no ____ROYCELINK 7535) evidence of RBC Meagan MOON ed by: alloantibodies. KARL KLE IN,Dictated Date/Time: 9:54 AM SPA CONCIERGE Tra nscribed Date/Time: 9:54 AM CSTElectronical ly Signed By: KARL FERNANDEZ, on 08.28.2022 9:54 AM C [facility] CenterAntibody [id number] 23:01:13 Test Item Value Reference Range Interpretation Comments ABSC. (test code = 890-4) Negative ABSC [facility] CenterABORh2022-12-06 23:01:12 Test Item Value Reference Range Interpretation Comments ABORh. (test code = 882-1) O POS [facility] CenterClot Expiration [id number] 23:00:42 Test Item Value Reference Range Interpretation Comments T & S Expiration (test code = 08/30/2022 5318) [facility] CenterTacrolimus2022-12-06 21:18:00 Test Item Value Reference Range Interpretation Comments [place] LD Time (test 2199 code = 7598) [place] LD Date (test 08/26/2022 code = 7597) [place] Level (test Random code = 7599) Tacrolimus (test code 15.0 ng/mL 5.0-20.0 Therap eutic range 5 - = 8554) 20 ng/mL for 12 hour trough. The ran ge varies with the method used, type of o rgan transplant, ashley e after transplant, and co-administrati on with other immunosuppressa nts. Analytical Meth od: Immunoassay Met hod Platform: Abbot t [employer] Driver [facility] CenterFractionated [id number] 19:26:57Bili Total<0.3<=1.2 mg/dLUT [facility] THENDARAUnCovenant Health PlainviewGlomerular Filtration [id number] 19:26:56 Test Item Value Reference Range Interpretation Comments eGFR (test code = 55 See_[place] [address]) calculated with the 2020 CKD-EPI cr eatinine equation using creatinine, pat ient's age, and sex fo r adults 18 years of age and older. 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 CKD beverly uld be classified by mya cutler, GFR category, a nd albuminuria cat egory. KDIGO guideline s provide the fol lowing GFR categoriesS tage Description GFR mL/min/1.73 m2G 1* Normal or high >= 90G2* Mildly decrease d 60-89G3a Mildly to moderately decr eased 45-59G3b Modera tely to severely decrea sed 30-44G4 Severel y decreased 15-29 G5 Kidney failure <15*In the absence of evidence of kidney damag e, neither G1 nor G2 fulfill criteri a for CKD. [Automated message] The sy stem which generated this result transmit angelic reference range : >=60 mL/min/1.73 sq. m. The reference range was not used to interpr et this result as normal/abnormal . Lab Interpretation Abnormal (test code = 33820-2) [facility] CenterUric [id number] 19:26:55 Test Item Value Reference Range Interpretation Comments Uric Acid (test code = 3084-1) 4.8 mg/dL 2.4-5.7 [facility] CenterTotal [id number] 19:26:54 Test Item Value Reference Range Interpretation Comments Total Protein (test code = 2885-2) 6.5 g/dL 6.4-8.3 [facility] CenterMagnesium [id number] 19:26:53 Test Item Value Reference Range Interpretation Comments Magnesium (test code = 94741-6) 2.3 mg/dL 1.6-2.6 [facility] CenterAlkaline [id number] 19:26:52 Test Item Value Reference Range Interpretation Comments Alk Phos (test code = 6768-6) 127 U/L 35-104 H Lab Interpretation (test code = Abnormal 90226-4) [facility] CenterALT2022-12-06 19:26:51 Test Item Value Reference Range Interpretation Comments ALT (test code = 1742-6) 50 U/L See_Comment H [A utomated message] The system [employer] generated this result transmitted ref erence range: <=33. Th e reference range was not used to int erpret this result as normal/abnormal . Lab Interpretation (test Abnormal code = 57813-3) [facility].Serum [id number] 19:26:50 Test Item Value Reference Range Interpretation Comments Creatinine (test code = 2160-0) 1.14 mg/dL 0.51-0.95 H Lab Interpretation (test code = Abnormal 59719-1) [facility] CenterBUN2022-12-06 19:26:49 Test Item Value Reference Range Interpretation Comments BUN (test code = 3094-0) 34 mg/dL 6-23 H Lab Interpretation (test code = Abnormal 66335-7) [facility] CenterPhosphorus [id number] 19:26:48 Test Item Value Reference Range Interpretation Comments Phosphorus (test code = 2777-1) 4.3 mg/dL 2.5-4.5 [facility] CenterCalcium [id number] 19:26:47 Test Item Value Reference Range Interpretation Comments Calcium Lvl (test code = 51958-8) 9.0 mg/dL 8.4-10.2 [facility] CenterAlbumin [id number] 19:26:46 Test Item Value Reference Range Interpretation Comments Albumin Lvl (test code 4.0 See_Comment [Aut omated message] The = 1751-7) system which ge nerated this result tra nsmitted reference range : 3.5 - 5.2 gm/dL. The refe rence range was not used to interpret this result as normal/abnormal . [facility] CenterAspartate Aminotransferase 2022-08-27 19:26:45 Test Item Value Reference Range Interpretation Comments AST (test code = 1920-8) 67 U/L See_Comment H [A utomated message] The system [employer] generated this result transmitted ref erence range: <=32. Th e reference range was not used to int erpret this result as normal/abnormal . Lab Interpretation (test Abnormal code = 10939-2) [facility] CenterElectrolyte [id number] 19:26:44 Test Item Value Reference Range Interpretation Comments Sodium Lvl (test code = 140 See_Comment [Au tomated message] The 2950-10) system which ge nerated this result tra nsmitted reference range : 136 - 145 mEq/L. The reference range was not u sed to interpret this result as normal/abnormal . Potassium Lvl (test 4.2 See_Comment [Automa angelic message] The code = 2823-3) system which generated this result tra nsmitted reference range : 3.5 - 5.1 mEq/L. The reference range was not u sed to interpret this result as normal/abnormal . Chloride (test code = 107 See_Comment [Auto mated message] The ) system which ge nerated this result tra nsmitted reference range : 98 - 107 mEq/L. The refe rence range was not u sed to interpret this result as normal/abnormal . CO2 (test code = 26 See_Comment [Automated message] The 2028-05) system which ge nerated this result tra nsmitted reference range : 22 - 29 mEq/L. The refe rence range was not u sed to interpret this result as normal/abnormal . Anion Gap (test code = 7 See_Comment [Aut omated message] The ) system which ge nerated this result tra nsmitted reference range : 4 - 14 mEq/L. The refe rence range was not u sed to interpret this result as normal/abnormal . [facility] CenterGlucose [id number] 19:26:42 Test Item Value Reference Range Interpretation Comments Glucose Level (test 98 mg/dL 70-99 Effectiv e 04/17/16, the code = 2345-7) glucose refer ence intervals have been updated based o n Citizen Of [place] Diabet es Association virgil delines (Standards of M edical Care in Diabete s 2016. Diabetes Care 2 016; 39: S13-S22).Fastin g blood glucose:Normal: 70-99 mg/dLImpaired f asting glucose (increa sed risk for diabetes or pre-diabetes): 100-125 mg/dLDiabetes m ellitus: >/=126 mg/dL Ra ndom blood glucose:N ormal: 70-199 mg/dLNot e: Random glucose >100 mg /dL is associated with increased risk for diabetes [facility] CenterLDH2022-12-06 19:23:22 Test Item Value Reference Range Interpretation Comments LDH (test code = 214 U/L 135-214 Results gre ater than 1651 35051-7) U/L may not be reliable due to matrix effec t with extended diluti on as it exceeds the man ufacturer's recommended meredith it. Caution should be exerc ised when interpreting abbasi ch values and done in con junction with clinical c ontext. [facility] CenterDifferential2022-12-06 19:02:24 Test Item Value Reference Range Interpretation Comments Neutrophil % (test code = 44.0 % 42.0-66.0 770-8) Lymphocyte % (test code = 35.3 % 24.0-44.0 736-9) Monocyte % (test code = 13.9 % 2.0-7.0 H 5905-5) Eosinophil % (test code = 5.0 % 1.0-4.0 H 713-8) Basophil % (test code = 0.9 % 0.0-1.0 706-2) IGRE % (test code = 0.9 % 0.0-0.4 H IGRE % c ount 78197-1) includes Metamyelocytes, Myelocytes, and Promyelocytes. Neutrophil Abs (test code 3.00 K/uL 1.70-7.30 = 751-8) Lymphocyte Abs (test code 2.41 K/uL 1.00-4.80 = 731-0) Monocyte Abs (test code = 0.95 K/uL 0.08-0.70 H 742-7) Eosinophil Abs (test code 0.34 K/uL 0.04-0.40 = 711-2) Basophil Abs (test code = 0.06 K/uL 0.00-0.10 704-7) IG Abs (test code = 0.06 K/uL 0.00-0.04 H 10854-1) Lab Interpretation (test Abnormal code = 56281-5) [facility].[id number] 19:02:17 Test Item Value Reference Range Interpretation Comments WBC (test code = 6.8 K/uL 4.0-11.0 6690-2) RBC (test code = 789-8) 4.00 See_Comment [Au tomated message] The system [employer] generated this result transmitted ref erence range: 4.00 - 5 .50 M/uL. The refer ence range was not u sed to interpret this result as normal/abnor mal. Hgb (test code = 718-7) 11.9 See_Comment L [Au tomated message] The system [employer] generated this result transmitted ref erence range: 12.0 - 1 6.0 gm/dL. The refe rence range was not u sed to interpret this result as normal/abnor mal. Hct (test code = 38.2 % 37.0-47.0 4544-3) MCV (test code = 787-2) 96 fL 82-98 MCH (test code = 785-6) 29.8 pg 27.0-31.0 MCHC (test code = 31.2 See_Comment [Automate d message] 786-4) The system [employer] generated this result transmitted ref erence range: 31.0 - 3 6.0 gm/dL. The refe rence range was not u sed to interpret this result as normal/abnor mal. RDW-SD (test code = 55.3 fL 35.1-46.3 H 07400-7) RDW-CV (test code = 15.6 % 12.0-15.5 H 788-0) Platelet count (test 254 K/uL 140-440 code = 777-3) MPV (test code = 10.4 fL 4.0-10.4 17443-9) INRBC (test code = 0.0 % See_Comment The INRBC (instrument 36083-2) NRBC) value ref lects the enumeration of nucleated red b lood cells contained in a 200uL sampleof whole blood analyzed by the instrument. Thi s value maydiffer from the NRBC value repo rted in a manual differential,wh ich is based on a 100 cell differential. [Automated mess age] The system [employer] generated this result transmitted ref erence range: <=0.0. T he reference range was not used to int erpret this result as normal/abnormal . Lab Interpretation Abnormal (test code = 63987-8) [facility] CenterMD Carmelo-Addison Virus Quantitative PCR Collection, [id number] 19:06:48 Test Item Value Reference Range Interpretation Comments Molecular Diagnostics (Received) (test Yes code = 8400) [facility] CenterVitamin D [id number] 17:53:58 Test Item Value Reference Range Interpretation Comments Vitamin D 25 OH (test 56 ng/mL 30-100 Refere nce Range: code = 35496-5) Deficiency: <10 ng/mLInsufficie ncy: 10-29 ng/mLSuff iciency: 30-100 ng/mLPot ential toxicity: >100 ng/mL [facility] CenterFree [id number] 17:19:50 Test Item Value Reference Range Interpretation Comments T4 Free (test code = 3024-7) 1.35 ng/dL 0.93-1.70 [facility] CenterTSH2022-10-25 17:19:46 Test Item Value Reference Range Interpretation Comments TSH (test code = 1.20 See_Comment [Automated message] The 11910-8) system which ge nerated this result transmit angelic reference range : 0.27 - 4.20 mcunit/mL. The reference range was not used to interpr et this result as marc l/abnormal. [facility] CenterLipid [id number] 17:04:30 Test Item Value Reference Range Interpretation Comments Chol (test code = 179 mg/dL See_Comment ATP III Cl assification 1443-3) of Total Choles terol Primary Target of Therapy (in mg/dL):<200 Gbrznaivo866-59 9 Borderline high >=240 High [Automated message] The sy stem which generated this result transmit angelic reference range : <=199. The refe rence range was not u sed to interpret this result as normal/abnor mal. Trig (test code = 267 mg/dL See_Comment H ATP III Cl assification 1911-8) of Serum Trigly cerides Primary Target of Therapy (in mg/dL):<150 Yorhwo811-625 Borderline high 200-499 High>=500 Very highNon-fasting triglycerides > 200 mg/dL may be fo llowed up with a fasti ng Lipid Panel. Calculated LDL- C may be falsely decr eased when non-fastin g triglycerides > 200 mg/dL. [Automat ed message] The sy stem which generated this result transmit angelic reference range : <=149. The refe rence range was not u sed to interpret this result as normal/abnor mal. HDL (test code = 38 mg/dL See_Comment L [Automated message] 2085-05) The system [employer] generated this result transmitted ref erence range: >=40. Th e reference range was not used to int erpret this result as normal/abnormal . LDL (test code = 88 mg/dL See_Comment ATP III Cla ssification 05617-6) of LDL Choleste rol Primary Target of Therapy (in mg/dL):<100 Qvdlged242-928 Near optimal/above vinjuox795-778 Borderline high 160-189 High>=190 Very high [Automated mess age] The system [employer] generated this result transmitted ref erence range: <=100. T he reference range was not used to int erpret this result as normal/abnormal . VLDL (test code = 53 mg/dL 61791-9) Lab Interpretation Abnormal (test code = 81870-7) [facility] CenterProthrombin Time with [id number] 16:33:51 Test Item Value Reference Range Interpretation Comments PT (test code 12.9 See_Comment [Automated me ssage] = 5902-2) The system [employer] generated this result transmitted ref erence range: 11.9 - 1 4.1 second(s). The reference range was not used to int erpret this result as normal/abnormal . INR (test code 1.02 0.89-1.10 = 6301-6) GEORGINA (test code This lab cannot be = GEORGINA) scheduled at the following locations due to collection/proccess ing restrictions: [facility] and [facility]. [facility] CenterComplete PFT ([place], DLCO, [place]) 2022-06-02 00:00:00 Test Item Value Reference Range Interpretation Comments FVC (L) pre (test code = 2.364 L 2.847-4.342 L 9507) FEV1 (L) pre (test code 1.860 L 2.143-3.407 L = 9505) FEV1/FVC (%) pre (test 78.690 % 68.052-87.641 code = 9509) DLCO_SB ml/(min*mmHg) 15.423 See_Comment L [Auto mated message] (test code = 9515) The syste m which generated this result transmitted ref erence range: 16.605 - 36.771 ml/(min* mmHg). The reference r jimmy was not used to interpret this result as normal/abnor mal. DLCOc_SB ml/(min*mmHg) 16.285 See_Comment L [Aut omated message] (test code = 9516) The syste m which generated this result transmitted ref erence range: 16.605 - 36.771 ml/(min* mmHg). The reference r jimmy was not used to interpret this result as normal/abnor mal. TLC (L) (test code = 4.745 L 4.377-6.351 9513) RV (L) (test code = 2.302 L 1.459-2.611 9514) RV/TLC (%) (test code = 48.514 % 30.110-49.290 9517) FVC (% pred) pre (test 66 % code = 9520) FEV1 (%pred) pre (test 67 % code = 9518) FEV1/FVC (% pred) pre 101 % (test code = 9522) TLC (% pred) (test code 88 % = 9526) RV (% pred) (test code = 113 % 9527) RV/TLC (% pred) (test 122 % code = 9528) DLCO_SB (% pred) (test 58 % code = 9529) DLCOc_SB (% pred) (test 61 % code = 9530) Lab Interpretation (test Abnormal code = 24838-3) [facility]Complete PFT ([place], DLCO, LV) 2022-06-02 00:00:00 Test Item Value Reference Range Interpretation Comments FVC (L) pre (test code = 2.364 L 2.847-4.342 L 9507) FEV1 (L) pre (test code 1.860 L 2.143-3.407 L = 9505) FEV1/FVC (%) pre (test 78.690 % 68.052-87.641 code = 9509) DLCO_SB ml/(min*mmHg) 15.423 See_Comment L [Auto mated message] (test code = 9515) The syste m which generated this result transmitted ref erence range: 16.605 - 36.771 ml/(min* mmHg). The reference r jimmy was not used to interpret this result as normal/abnor mal. DLCOc_SB ml/(min*mmHg) 16.285 See_Comment L [Aut omated message] (test code = 9516) The syste m which generated this result transmitted ref erence range: 16.605 - 36.771 ml/(min* mmHg). The reference r jimmy was not used to interpret this result as normal/abnor mal. TLC (L) (test code = 4.745 L 4.377-6.351 9513) RV (L) (test code = 2.302 L 1.459-2.611 9514) RV/TLC (%) (test code = 48.514 % 30.110-49.290 9517) FVC (% pred) pre (test 66 % code = 9520) FEV1 (%pred) pre (test 67 % code = 9518) FEV1/FVC (% pred) pre 101 % (test code = 9522) TLC (% pred) (test code 88 % = 9526) RV (% pred) (test code = 113 % 9527) RV/TLC (% pred) (test 122 % code = 9528) DLCO_SB (% pred) (test 58 % code = 9529) DLCOc_SB (% pred) (test 61 % code = 9530) Lab Interpretation (test Abnormal code = 49561-9) [facility] [place] FerrisCMV Quant [id number] 19:58:49 Test Item Value Reference Range Interpretation Comments CMV DNA PCR Target Not Target Not Normal Range: T arget (test code = Detected Detected IU/mL Not Detected. Reportable 5214) Range: 34.5 to 4,000,000 CMV D NA IU/mL; values b etween 4,000,000 to 10 ,000,000 CMV DNA IU/mL m ay be reported but th katey should be inter preted with caution as this range of the as say has not been spring internship ally verified. The c linical significance of CMV levels at 4,000 ,000 IU/ml verses th ose above 4,000,000 is unclear. Result s are expressed in CM V DNA IU/ml plasma. Methodology: Th e extraction and quantitation of cytomegalovirus (CMV) DNA in human pl asma is performed using the [employer] Sy[employer] em. Amplification o f viral DNA is achieved using polymerase wolf n reaction (PCR). Internal contro ls are included to ass ess for possible amplif ication inhibitors. If inhibition is d etected, the specimen is tested again and if in hibition is confirmed th e specimen is res ulted as "Invalid". When an "Invalid" resul ts occurs, it is recommended to wait a minimum of 7-10 days before submitti ng a new specimen for te sting. This is an FDA- approved assay and its performance characteristics were verified by the [facility]ology [facility]. Results must be interpr eted within the cont ext of all relevant cl inical and laboratory findings. [facility] CenterTMP Interpretation Antibody Screen [id number] 17:33:56 Test Item Value Reference Range Interpretation Comments TMP Auto Neg At the present ABSC Interp time, patient (test code = plasma shows no ____TIMOTHY VALADEZ MD 7535) evidence of RBC - 31803Kyeit angelic by: alloantibodies. TIMOTHY FAM MD - [id number] D ate/Time: 05.29.2022 12:3 3 PM CDT Transcribed Ayaz e/Time: 05.29.2022 12:3 3 PM CDTElectronical ly Signed By: TIMOTHY PEREZ MD - [id number] on 12:33 PM [facility] CenterTacrolimus2022-09-06 20:48:01 Test Item Value Reference Range Interpretation Comments Tacro LD Time (test 2200 code = 7598) [place] LD Date (test 05/27/2022 code = 7597) [place] Level (test Random code = 7599) Tacrolimus (test code 13.0 ng/mL 5.0-20.0 Therap eutic range 5 - = 8554) 20 ng/mL for 12 hour trough. The ran ge varies with the method used, type of o rgan transplant, ashley e after transplant, and co-administrati on with other immunosuppressa nts. Analytical Meth od: Immunoassay Met hod Platform: Ab[employer] [facility] CenterABORh2022-09-06 20:17:13 Test Item Value Reference Range Interpretation Comments ABORh. (test code = 882-1) O POS [facility] CenterClot Expiration [id number] 20:16:43 Test Item Value Reference Range Interpretation Comments T & S Expiration (test code = 05/31/2022 5318) [facility] CenterAntibody [id number] 20:13:10 Test Item Value Reference Range Interpretation Comments ABSC. (test code = 890-4) Negative ABSC [facility] CenterPhosphorus [id number] 18:44:16 Test Item Value Reference Range Interpretation Comments Phosphorus (test code = 2777-1) 3.1 mg/dL 2.5-4.5 [facility] CenterLDH2022-09-06 18:44:15 Test Item Value Reference Range Interpretation Comments LDH (test code = 303 U/L 135-214 H Results gre ater than 64469-2) 1651 U/L may no t be reliable due to matrix effect w ith extended diluti on as it exceeds the certified low vision therapist's recommended meredith it. Caution should be exercised when interpreting abbasi ch values and done in conjunction wit h clinical contex t. Lab Interpretation (test Abnormal code = 34056-8) [facility] CenterCalcium [id number] 18:44:14 Test Item Value Reference Range Interpretation Comments Calcium Lvl (test code = 00154-9) 9.0 mg/dL 8.4-10.2 [facility] CenterAlbumin [id number] 18:44:13 Test Item Value Reference Range Interpretation Comments Albumin Lvl (test code 4.1 See_Comment [Aut omated message] The = 4763) system which ge nerated this result tra nsmitted reference range : 3.5 - 5.2 gm/dL. The refe rence range was not used to interpret this result as normal/abnormal . [facility] CenterAspartate Aminotransferase 2022-05-28 18:44:12 Test Item Value Reference Range Interpretation Comments AST (test code = 1920-8) 45 U/L See_Comment H [A utomated message] The system whic h generated this result transmitted ref erence range: <=32. Th e reference range was not used to int erpret this result as normal/abnormal . Lab Interpretation (test Abnormal code = 08634-3) [facility] CenterElectrolyte [id number] 18:44:11 Test Item Value Reference Range Interpretation Comments Sodium Lvl (test code = 142 See_Comment [Au tomated message] The 2950-10) system which ge nerated this result tra nsmitted reference range : 136 - 145 mEq/L. The reference range was not u sed to interpret this result as normal/abnormal . Potassium Lvl (test 4.1 See_Comment [Automa angelic message] The code = 2823-3) system which generated this result tra nsmitted reference range : 3.5 - 5.1 mEq/L. The reference range was not u sed to interpret this result as normal/abnormal . Chloride (test code = 107 See_Comment [Auto mated message] The ) system which ge nerated this result tra nsmitted reference range : 98 - 107 mEq/L. The refe rence range was not u sed to interpret this result as normal/abnormal . CO2 (test code = 26 See_Comment [Automated message] The 2028-05) system which ge nerated this result tra nsmitted reference range : 22 - 29 mEq/L. The refe rence range was not u sed to interpret this result as normal/abnormal . Anion Gap (test code = 9 See_Comment [Aut omated message] The 38691-0) system which ge nerated this result tra nsmitted reference range : 4 - 14 mEq/L. The refe rence range was not u sed to interpret this result as normal/abnormal . [facility] CenterGlucose [id number] 18:44:10 Test Item Value Reference Range Interpretation Comments Glucose Level (test 91 mg/dL 70-99 Effectiv e 04/17/16, the code = 2345-7) glucose refer ence intervals have been updated based o n Citizen Of The [place] Diabet es Association virgil delines (Standards of M edical Care in Diabete s 2016. Diabetes Care 2 016; 39: S13-S22).Fastin g blood glucose:Normal: 70-99 mg/dLImpaired f asting glucose (increa sed risk for diabetes or pre-diabetes): 100-125 mg/dLDiabetes m ellitus: >/=126 mg/dL Ra ndom blood glucose:N ormal: 70-199 mg/dLNot e: Random glucose >100 mg /dL is associated with increased risk for diabetes [facility] CenterFractionated Ojqvzbtpr3022-52-12 18:44:09 Test Item Value Reference Range Interpretation Comments Bili Total (test <0.3 See_Comment Direct and indirect code = 1975-2) bilirubin yolanda l not be reported when T otal bilirubin resul t is <0.3 mg/dLIndocyanin e Green (ICG) may cause false ly elevated bilirubin resul ts. Total and direct bilirubi n must not be measured from s amples containing indo cyanine green. False el evation of total bilirubin can be seen in patients wit h IgG concentrations above 28 g/L. [Automated mess age] The system which ge nerated this result transmit angelic reference range: <=1.2 mg /dL. The reference range was not used to interpret th is result as normal/abnormal . [facility] CenterGlomerular Filtration Rate 2022-05-28 18:44:08 Test Item Value Reference Range Interpretation Comments eGFR-AA (test code = 51 See_Comment L Normal eGFR: >= 60 56488-7) mL/min/1.73 m2N ote: The eGFR is candy culated using the CKD-E PI equation. The e GFR declines with a ge. eGFR <60 mL/min /1.73 m2 is considere d as "decreased". Th is equation should only be used for pat ients 18 and older. According to th e National Kidney Foundation's Ki dney Disease Outcome Quality Initiat melva (KDOQI) classif ication and 2012 Kidney Disease Improvi ng Global Outcomes (KDIGO) Clinica l Practice Guidel ine, the stage of CK D should be categ orized based on estima angelic GFR. Stage Desc ription GFR mL/min/1.73 m21 Normal or high GFR >=902 Mildly de creased GFR 60-893a Mil dly to moderately decr eased GFR 45-593b Moderately to s everely decreased GFR 3 0-444 Severely decrea sed GFR 15-295 Kidney f ailure <15 [Automated message] The sy stem which generated this result transmit angelic reference range : >=60 mL/min/1.73 sq. m. The reference range was not used to int erpret this result as normal/abnormal . eGFR-CHRISTIANO (test code = 44 See_Comment L Normal eGFR: >= 60 19628-2) mL/min/1.73 m2N ote: The eGFR is candy culated using the CKD-E PI equation. The e GFR declines with a ge. eGFR <60 mL/min /1.73 m2 is considere d as "decreased". Th is equation should only be used for pat ients 18 and older. According to th e National Kidney Foundation's Ki dney Disease Outcome Quality Initiat melva (KDOQI) classif ication and 2012 Kidney Disease Improvi ng Global Outcomes (KDIGO) Clinica l Practice Guidel ine, the stage of CK D should be categ orized based on estima angelic GFR. Stage Desc ription GFR mL/min/1.73 m21 Normal or high GFR >=902 Mildly de creased GFR 60-893a Mil dly to moderately decr eased GFR 45-593b Mod erately to severely dec reased GFR 30-444 Candice rely decreased GFR 1 5-295 Kidney failure <15 [Automated mess age] The system [employer] generated this result transmitted ref erence range: >=60 mL/min/1.73 sq. m. The reference range was not used to int erpret this result as normal/abnormal . Lab Interpretation Abnormal (test code = 33290-1) [facility] CenterUric Wjrl0913-01-46 18:44:07 Test Item Value Reference Range Interpretation Comments Uric Acid (test code = 3084-1) 4.7 mg/dL 2.4-5.7 [facility] CenterTotal [id number] 18:44:06 Test Item Value Reference Range Interpretation Comments Total Protein (test code = 2885-2) 6.4 g/dL 6.4-8.3 [facility] CenterMagnesium [id number] 18:44:05 Test Item Value Reference Range Interpretation Comments Magnesium (test code = 86928-3) 2.4 mg/dL 1.6-2.6 [facility] CenterAlkaline [id number] 18:44:04 Test Item Value Reference Range Interpretation Comments Alk Phos (test code = 6768-6) 104 U/L 35-104 [facility] CenterALT2022-09-06 18:44:03 Test Item Value Reference Range Interpretation Comments ALT (test code = 22 U/L See_Comment [Automated message] The 1742-6) system which ge nerated this result transmit angelic reference range : <=33. The reference range was not used to interpr et this result as marc l/abnormal. [facility].Serum Pbnddtujma0537-08-32 18:44:02 Test Item Value Reference Range Interpretation Comments Creatinine (test code = 2160-0) 1.30 mg/dL 0.51-0.95 H Lab Interpretation (test code = Abnormal 58008-5) [facility] CenterBUN2022-09-06 18:44:01 Test Item Value Reference Range Interpretation Comments BUN (test code = 3094-0) 27 mg/dL 6-23 H Lab Interpretation (test code = Abnormal 96093-5) [facility] CenterDifferential2022-09-06 18:24:39 Test Item Value Reference Range Interpretation Comments Neutrophil % (test code = 44.0 % 42.0-66.0 770-8) Lymphocyte % (test code = 44.3 % 24.0-44.0 H 736-9) Monocyte % (test code = 10.4 % 2.0-7.0 H 5905-5) Eosinophil % (test code = 0.7 % 1.0-4.0 L 713-8) Basophil % (test code = 0.3 % 0.0-1.0 706-2) IGRE % (test code = 0.3 % 0.0-0.4 IGRE % c ount 16801-9) includes Metamyelocytes, Myelocytes, and Promyelocytes. Neutrophil Abs (test code 2.54 K/uL 1.70-7.30 = 751-8) Lymphocyte Abs (test code 2.56 K/uL 1.00-4.80 = 731-0) Monocyte Abs (test code = 0.60 K/uL 0.08-0.70 742-7) Eosinophil Abs (test code 0.04 K/uL 0.04-0.40 = 711-2) Basophil Abs (test code = 0.02 K/uL 0.00-0.10 704-7) IG Abs (test code = 0.02 K/uL 0.00-0.04 71522-3) Lab Interpretation (test Abnormal code = 76938-7) [facility] [place].[id number] 18:24:24 Test Item Value Reference Range Interpretation Comments WBC (test code = 5.8 K/uL 4.0-11.0 6690-2) RBC (test code = 789-8) 4.05 See_Comment [Au tomated message] The system [employer] generated this result transmitted ref erence range: 4.00 - 5 .50 M/uL. The refer ence range was not u sed to interpret this result as normal/abnor mal. Hgb (test code = 718-7) 11.8 See_Comment L [Au tomated message] The system [employer] generated this result transmitted ref erence range: 12.0 - 1 6.0 gm/dL. The refe rence range was not u sed to interpret this result as normal/abnor mal. Hct (test code = 36.3 % 37.0-47.0 L 4544-3) MCV (test code = 787-2) 90 fL 82-98 MCH (test code = 785-6) 29.1 pg 27.0-31.0 MCHC (test code = 32.5 See_Comment [Automate d message] 786-4) The system [employer] generated this result transmitted ref erence range: 31.0 - 3 6.0 gm/dL. The refe rence range was not u sed to interpret this result as normal/abnor mal. RDW-SD (test code = 51.8 fL 35.1-46.3 H 56787-4) RDW-CV (test code = 15.8 % 12.0-15.5 H 788-0) Platelet count (test 257 K/uL 140-440 code = 777-3) MPV (test code = 9.5 fL 4.0-10.4 53375-7) INRBC (test code = 0.0 % See_Comment The INRBC (instrument 85507-9) NRBC) value ref lects the enumeration of nucleated red b lood cells contained in a 200uL sampleof whole blood analyzed by the instrument. Thi s value maydiffer from the NRBC value repo rted in a manual differential,wh ich is based on a 100 cell differential. [Automated mess age] The system whic h generated this result transmitted ref erence range: <=0.0. T he reference range was not used to int erpret this result as normal/abnormal . Lab Interpretation Abnormal (test code = 54334-2) [facility] [place]HHV6 Quant, [id number] 00:20:07 Test Item Value Reference Range Interpretation Comments HHV6 Not Detected Not Detected Assay Range: 1 88 copies/mL to Plasma-Ashley copies/mL 1.00E+08 copies /mLThe limit of cor (test quantitation (L OQ) is 188 code = copies/mL. HHV- 6 DNA 5782) detectedbelow t he LOQ will be reported as Det ected:<188 copies/mL.This test was developed and i ts performance characteristics determined by [employer]. It has not been cleared or approvedby the U.S. Food and D rug Administration. Results should be used inconju nction with clinical findin gs, and should not form the so lebasis for a diagnosis or tr eatment decision. Performe d At:[facility] [address]Oqqipkolnh Director: Butch Newell Ph.D., KIMO D (ABB)CLIA#: [id number] e: [facility] CenterHHV6 Quant, [id number] 00:20:07 Test Item Value Reference Range Interpretation Comments HHV6 Not Detected Not Detected Assay Range: 1 88 copies/mL to Plasma-Ashley copies/mL 1.00E+08 copies /mLThe limit of cor (test quantitation (L OQ) is 188 code = copies/mL. HHV- 6 DNA 5782) detectedbelow t he LOQ will be reported as Det ected:<188 copies/mL.This test was developed and i ts performance characteristics determined by [employer]. It has not been cleared or approvedby the U.S. Food and D rug Administration. Results should be used inconju nction with clinical findin gs, and should not form the so lebasis for a diagnosis or tr eatment decision. Performe d At:[facility] [address]Dbvbhsunap Director: Butch Newell Ph.D., KIMO D (ABB)CLIA#: [id number] e: [facility] CenterAdenovirus Quant, [id number] 00:20:06 Test Item Value Reference Range Interpretation Comments ADV Not Detected Not Detected Assay Range: 1 90 copies/mL to Plasma-Ashley copies/mL 1.00E+10 copies /mLThe limit of cor (test quantitation (L OQ) is 190 code = copies/mL. Elmo ovirus 4691) DNAdetected bel ow the LOQ will be reported as Detected:<190 copies/mL.This test was developed and i ts performance characteristics determined by [employer]. It has not been cleared or approvedby the U.S. Food and D rug Administration. Results should be used inconju nction with clinical findin gs, and should not form the so lebasis for a diagnosis or tr eatment decision. Performe d At:[facility] [email or web address] [address] [address]Tezsehyhje Director: Butch Newell Ph.D., KIMO Holland (ABB)CLIA#: [id number] e: [facility] CenterAdenovirus Quant, [id number] 00:20:06 Test Item Value Reference Range Interpretation Comments ADV Not Detected Not Detected Assay Range: 1 90 copies/mL to Plasma-Ashley copies/mL 1.00E+10 copies /mLThe limit of cor (test quantitation (L OQ) is 190 code = copies/mL. Elmo ovirus 4691) DNAdetected bel ow the LOQ will be reported as Detected:<190 copies/mL.This test was developed and i ts performance characteristics determined by [employer]. It has not been cleared or approvedby the U.S. Food and D rug Administration. Results should be used inconju nction with clinical findin gs, and should not form the so lebasis for a diagnosis or tr eatment decision. Performe d At:[facility]Actifiduong [email or web address] Stephen [address]Jtrhciemjn Director: Butch Newell Ph.D., KIMO Holland (ABB)CLIA#: [id number] e: [facility] CenterMD Carmelo-Addison Virus Quantitative PCR Collection, [id number] 19:44:11 Test Item Value Reference Range Interpretation Comments Molecular Diagnostics (Received) (test Yes code = 8400) [facility] CenterComplete PFT ([place], DLCO, LV) 2022-02-25 00:00:00 Test Item Value Reference Range Interpretation Comments FVC (L) pre (test code = 2.267 L 2.806-4.283 L 9507) FEV1 (L) pre (test code 1.759 L 2.111-3.360 L = 9505) FEV1/FVC (%) pre (test 77.601 % 68.052-87.641 code = 9509) DLCO_SB ml/(min*mmHg) 14.440 See_Comment L [Auto mated message] (test code = 9515) The syste m which generated this result transmitted ref erence range: 16.858 - 37.024 ml/(min* mmHg). The reference r jimmy was not used to interpret this result as normal/abnor mal. TLC (L) (test code = 4.505 L 4.311-6.285 9513) RV (L) (test code = 2.126 L 1.441-2.593 9514) RV/TLC (%) (test code = 47.192 % 30.110-49.290 9517) FVC (% pred) pre (test 64 % code = 9520) FEV1 (%pred) pre (test 64 % code = 9518) FEV1/FVC (% pred) pre 100 % (test code = 9522) TLC (% pred) (test code 85 % = 9526) RV (% pred) (test code = 105 % 9527) RV/TLC (% pred) (test 119 % code = 9528) DLCO_SB (% pred) (test 54 % code = 9529) Lab Interpretation (test Abnormal code = 83903-2) [facility] CenterComplete PFT ([place], DLCO, LV) 2022-02-25 00:00:00 Test Item Value Reference Range Interpretation Comments FVC (L) pre (test code = 2.267 L 2.806-4.283 L 9507) FEV1 (L) pre (test code 1.759 L 2.111-3.360 L = 9505) FEV1/FVC (%) pre (test 77.601 % 68.052-87.641 code = 9509) DLCO_SB ml/(min*mmHg) 14.440 See_Comment L [Auto mated message] (test code = 9515) The syste m which generated this result transmitted ref erence range: 16.858 - 37.024 ml/(min* mmHg). The reference r jimmy was not used to interpret this result as normal/abnor mal. TLC (L) (test code = 4.505 L 4.311-6.285 9513) RV (L) (test code = 2.126 L 1.441-2.593 9514) RV/TLC (%) (test code = 47.192 % 30.110-49.290 9517) FVC (% pred) pre (test 64 % code = 9520) FEV1 (%pred) pre (test 64 % code = 9518) FEV1/FVC (% pred) pre 100 % (test code = 9522) TLC (% pred) (test code 85 % = 9526) RV (% pred) (test code = 105 % 9527) RV/TLC (% pred) (test 119 % code = 9528) DLCO_SB (% pred) (test 54 % code = 9529) Lab Interpretation (test Abnormal code = 40696-0) [facility] CenterBlood [id number] 02:48:40 Test Item Value Reference Range Interpretation Comments Final Report (test No growth code = 8488) Path Review - Immunity and antibiotic Bottle/Isolator use may render culture (test code = 8499) negative. Ongoing infection requires repeat culture. The results have been reviewed and electronically signed by Pathologist:Scott Rodriguez MD, PhD #[id number] [facility] CenterBlood Tblslbj2218-91-30 02:48:40 Test Item Value Reference Range Interpretation Comments Final Report (test No growth code = 8488) Path Review - Immunity and antibiotic Bottle/Isolator use may render culture (test code = 8499) negative. Ongoing infection requires repeat culture. The results have been reviewed and electronically signed by Pathologist:Scott Rodriguez MD, PhD #[id number] [facility] CenterGeneral Laboratory Add-On Test 2022-01-25 17:29:05 Test Item Value Reference Range Interpretation Comments Ordered (test code = 6568) Test Added Test Needed (test code = tacrolimus level 7604) [facility] CenterGeneral Laboratory Add-On Test 2022-01-25 17:29:05 Test Item Value Reference Range Interpretation Comments Ordered (test code = 6568) Test Added Test Needed (test code = tacrolimus level 7604) [facility] CenterVRE [id number] 20:34:27 Test Item Value Reference Range Interpretation Comments Final Report (test No Vancomycin resistant code = 8488) Enterococci isolated Path Review - VRE The results have been (test code = 8485) reviewed and electronically signed by Pathologist:Scott Rodriguez MD, PhD #[id number] GEORGINA (test code = 10:00 AM GEORGINA) [facility] CenterVRE Vvfbbtl1185-03-83 20:34:27 Test Item Value Reference Range Interpretation Comments Final Report (test No Vancomycin resistant code = 8488) Enterococci isolated Path Review - VRE The results have been (test code = 8485) reviewed and electronically signed by Pathologist:Scott Rodriguez MD, PhD #[id number] GEORGINA (test code = 10:00 AM GEORGINA) [facility] [id number] 03:44:01 Test Item Value Reference Range Interpretation Comments Final Report (test code <10,000 cfu/ml Normal A = 8488) site joni present.Generally of low significance.Correlate with clinical data and culture history. Path Review - Urine The results have been A (test code = 8483) reviewed and electronically signed by Pathologist:Enrrique Henson MD, PhD #[id number] Lab Interpretation Abnormal (test code = 73988-5) [facility] Fmszewx8039-19-40 03:44:01 Test Item Value Reference Range Interpretation Comments Final Report (test code <10,000 cfu/ml Normal A = 8488) site joni present.Generally of low significance.Correlate with clinical data and culture history. Path Review - Urine The results have been A (test code = 8483) reviewed and electronically signed by Pathologist:Enrrique Henson MD, PhD #[id number] Lab Interpretation Abnormal (test code = 99191-5) [facility] CenterVancomycin Trough Draw 30 min before the fourth [id number] 11:18:06 Test Item Value Reference Range Interpretation Comments Vanco Trough 14.6 See_Comment Toxic Trough Le quentin: >20 (test code = mcg/mL [Automat ed 4092-3) message] The sy stem which generated this result transmit angelic reference range : 5.0 - 20.0 mcg/mL. Th e reference range was not used to interpr et this result as normal/abnormal . Vanco Tr Dose See note Level, date, a nd time of Time (test code previous dos e is not = 95347-2) availablefor is sample. The ayaz e reported is the samplecollectio n date. Vanco Tr Dose 01/20/2022 Level, date, a nd time of Date (test code previous dos e is not = 09456-9) availablefor is sample. The ayaz e reported is the samplecollectio n date. GEORGINA (test code Draw 30 min = GEORGINA) before the fourth dose [facility] CenterVancomycin Trough Draw 30 min before the fourth [id number] 11:18:06 Test Item Value Reference Range Interpretation Comments Vanco Trough 14.6 See_Comment Toxic Trough Le quentin: >20 (test code = mcg/mL [Automat ed 4092-3) message] The sy stem which generated this result transmit angelic reference range : 5.0 - 20.0 mcg/mL. Th e reference range was not used to interpr et this result as normal/abnormal . Vanco Tr Dose See note Level, date, a nd time of Time (test code previous dos e is not = 82814-2) availablefor is sample. The ayaz e reported is the samplecollectio n date. Vanco Tr Dose 01/20/2022 Level, date, a nd time of Date (test code previous dos e is not = 55358-6) availablefor is sample. The ayaz e reported is the samplecollectio n date. GEORGINA (test code Draw 30 min = GEORGINA) before the fourth dose [facility] CenterTobramycin [id number] 07:36:13 Test Item Value Reference Range Interpretation Comments Tobra Lvl 2.54 mcg/mL No reference ra nges (test code = established for random 44396-0) levels, please refer to trough and/or p eak levels provided : Toxic random level: > 10 mcg/mL Therapeu tic Trough Level: < =2 mcg/mLToxic Tro ugh Level: >2 mcg/m L Therapeutic Pea k Level: 5-10 mcg/mLToxi c Peak Level: >10 mcg/ mL Tobra Ds Dt 01/19/2022 (test code = 7623) Tobra Ds Tm see note Level, date, an d time (test code = of previous dos e is not 7624) availablefor is sample. The ayaz e reported is the samplecollectio n date. GEORGINA (test Please draw level code = GEORGINA) 10 hours after completion of tobramycin infusion. [facility] CenterTobramycin [id number] 07:36:13 Test Item Value Reference Range Interpretation Comments Tobra Lvl 2.54 mcg/mL No reference ra nges (test code = established for random 89304-5) levels, please refer to trough and/or p eak levels provided : Toxic random level: > 10 mcg/mL Therapeu tic Trough Level: < =2 mcg/mLToxic Tro ugh Level: >2 mcg/m L Therapeutic Pea k Level: 5-10 mcg/mLToxi c Peak Level: >10 mcg/ mL Tobra Ds Dt 01/19/2022 (test code = 7623) Tobra Ds Tm see note Level, date, an d time (test code = of previous dos e is not 7624) availablefor is sample. The ayaz e reported is the samplecollectio n date. GEORGINA (test Please draw level code = GEORGINA) 10 hours after completion of tobramycin infusion. [facility] CenterUrinalysis with Microscopic 2022-01-18 06:19:27 Test Item Value Reference Interpretation Comments Range UA WBC (test code = <1 See_Comment [Automa angelic 70259-7) message] The system which generated this result transmitted reference range : 0 - 2 /HPF. The reference range was not used to interpret this result as normal/abnormal . UA RBC (test code = 3 See_Comment H [Automa angelic 45962-0) message] The system which generated this result transmitted reference range : 0 - 2 /HPF. The reference range was not used to interpret this result as normal/abnormal . UA Mucous (test code NOT SEEN Not Seen-Trace = 22173-8) /HPF UA Bacteria (test NOT SEEN NOT SEEN /HPF code = 48657-0) UA Squam Epi (test OCC None-Occasiona code = 58899-5) l /HPF GEORGINA (test code = Some reporting GEORGINA) parameters within the Urinalysis test have changed due to the implementation of new instrumentation in the Main [place], allowing greater sensitivity of measurement. Urinalysis results reported by the [facility] using existing instrumentation, as well as Urinalysis testing performed manually or by backup methodology at the [facility] will remain relatively unchanged. New reporting parameters and units will now be reported for all [facility]. Lab Interpretation Abnormal (test code = 41732-2) [facility] CenterUrinalysis with Microscopic 2022-01-18 06:19:27 Test Item Value Reference Interpretation Comments Range UA WBC (test code = See_Comment [Automa angelic 26357-5) message] The system which generated this result transmitted reference range : 0 - 2 /HPF. The reference range was not used to interpret this result as normal/abnormal . UA RBC (test code = 3 See_Comment H [Automa angelic 22830-2) message] The system which generated this result transmitted reference range : 0 - 2 /HPF. The reference range was not used to interpret this result as normal/abnormal . UA Mucous (test code NOT SEEN Not Seen-Trace = 17150-6) /HPF UA Bacteria (test NOT SEEN NOT SEEN /HPF code = 88713-7) UA Squam Epi (test OCC None-Occasiona code = 00464-3) l /HPF GEORGINA (test code = Some reporting GEORGINA) parameters within the Urinalysis test have changed due to the implementation of new instrumentation in the Main [place], allowing greater sensitivity of measurement. Urinalysis results reported by the [facility] using existing instrumentation, as well as Urinalysis testing performed manually or by backup methodology at the [facility] will remain relatively unchanged. New reporting parameters and units will now be reported for all campus. Lab Interpretation Abnormal (test code = 94893-2) [facility] CenterUrinalysis w/Microscopic if [id number] 05:47:56 Test Item Value Reference Range Interpretation Comments UA Color (test code = 83794-0) Yellow Straw-Yellow UA Appear (test code = 5767-9) Hazy Clear A UA Glucose (test code = 5792-7) NEG NEG mg/dL UA Bili (test code = 5770-3) NEG NEG UA Ketones (test code = 5797-6) NEG NEG mg/dL UA Spec Grav (test code = 5810-7) 1.014 1.003-1.035 UA Blood (test code = 5794-3) NEG NEG UA pH (test code = 5803-2) 5.0 5.0-9.0 UA Protein (test code = 5804-0) NEG NEG mg/dL UA Urobilinogen (test code = 5818-0) NEG NEG UA Nitrite (test code = 5802-4) NEG NEG UA Leuk Est (test code = 5799-2) NEG NEG Lab Interpretation (test code = Abnormal 83506-5) [facility] if [id number] 05:47:56 Test Item Value Reference Range Interpretation Comments UA Color (test code = 83099-3) Yellow Straw-Yellow UA Appear (test code = 5767-9) Hazy Clear A UA Glucose (test code = 5792-7) NEG NEG mg/dL UA Bili (test code = 5770-3) NEG NEG UA Ketones (test code = 5797-6) NEG NEG mg/dL UA Spec Grav (test code = 5810-7) 1.014 1.003-1.035 UA Blood (test code = 5794-3) NEG NEG UA pH (test code = 5803-2) 5.0 5.0-9.0 UA Protein (test code = 5804-0) NEG NEG mg/dL UA Urobilinogen (test code = 5818-0) NEG NEG UA Nitrite (test code = 5802-4) NEG NEG UA Leuk Est (test code = 5799-2) NEG NEG Lab Interpretation (test code = Abnormal 02500-5) [facility]-19, Nasopharyngeal [id number] 23:47:35 Test Item Value Reference Range Interpretation Comments Adenovirus (test code = Not Detected Not Detected 3976) Coronavirus 229E (test Not Detected Not Detected code = 5349) Coronavirus HKU1 (test Not Detected Not Detected code = 5350) Coronavirus NL63 (test Not Detected Not Detected code = 5351) Coronavirus OC43 (test Not Detected Not Detected code = 5352) COVID19 (SARS-CoV-2) Not Detected Not Detected (test code = 10552-0) Human Metapneumovirus Not Detected Not Detected (test code = 6401) Human Not Detected Not Detected Rhinovirus/Enterovirus (test code = 7212) Influenza A (test code Not Detected Not Detected = 5618) Influenza A H1 (test Not Detected Not Detected code = 5619) Influenza A H1 2009 Not Detected Not Detected (test code = 5620) Influenza A H3 (test Not Detected Not Detected code = 5621) Influenza B (test code Not Detected Not Detected = 5622) Parainfluenza 1 (test Not Detected Not Detected code = 6779) Parainfluenza 2 (test Not Detected Not Detected code = 6780) Parainfluenza 3 (test Not Detected Not Detected code = 6781) Parainfluenza 4 (test Not Detected Not Detected code = 6782) Respiratory Syncytial Not Detected Not Detected Virus (test code = 7157) Bordetella Not Detected Not Detected Parapertussis (test code = 00183) Bordetella pertussis Not Detected Not Detected (test code = 4854) Chlamydiophila Not Detected Not Detected pneumoniae (test code = 5139) Mycoplasma pneumoniae Not Detected Not Detected (test code = 6203) GEORGINA (test code = GEORGINA) The [employer] RP2.1 is a real-time, nested multiplexed polymerase chain reaction test designed to simultaneously identify nucleic acids from 22 different viruses and bacteria associated with respiratory tract infection, including SARS-CoV-2, from a single nasopharyngeal swab (DIGITAL MARKETING ASSOCIATE) specimen obtained from individuals suspected of respiratory tract infections, including COVID-19. Results must be interpreted within the context of all relevant clinical and laboratory findings and should not form the sole basis for a diagnosis or treatment decision. Positive results do not rule out coninfection with other organisms. Negative results in the setting of a respiratory illness may be due to infection with pathogens that are not detected by this panel, or a lower respiratory tract infection that may not be detected by an DIGITAL MARKETING ASSOCIATE specimen. Internal controls are used to monitor all stages of the test process and assess for possible amplification inhibitors. If inhibition is detected, testing is repeated and if inhibition is confirmed the specimen is resulted as "Invalid". When an "Invalid" result occurs, it is recommended to wait 3 days before submitting a new specimen for testing if clinically indicated. This assay has been approved by the FDA for use in laboratories that have been CLIA-certified to perform moderate-complexity and high-complexity tests. [facility], CLIA Accreditation #[id number] and CAP Accreditation #[id number], verified the performance characteristics of this assay. [facility] performs the assay using the Excel [employer] Intelligence System. The [employer] RP2.1 is a real-time, nested multiplexed polymerase chain reaction test designed to simultaneously identify nucleic acids from 22 different viruses and bacteria associated with respiratory tract infection, including SARS-CoV-2, from a single nasopharyngeal swab (DIGITAL MARKETING ASSOCIATE) specimen obtained from individuals suspected of respiratory tract infections, including COVID-19. Results must be interpreted within the context of all relevant clinical and laboratory findings and should not form the sole basis for a diagnosis or treatment decision. Positive results do not rule out coninfection with other organisms. Negative results in the setting of a respiratory illness may be due to infection with pathogens that are not detected by this panel, or a lower respiratory tract infection that may not be detected by an DIGITAL MARKETING ASSOCIATE specimen. Internal controls are used to monitor all stages of the test process and assess for possible amplification inhibitors. If inhibition is detected, testing is repeated and if inhibition is confirmed the specimen is resulted as "Invalid". When an "Invalid" result occurs, it is recommended to wait 3 days before submitting a new specimen for testing if clinically indicated. This assay has been approved by the FDA for use in laboratories that have been CLIA-certified to perform moderate-complexity and high-complexity tests. [facility], CLIA Accreditation #[id number] and CAP Accreditation #[id number], verified the performance characteristics of this assay. [facility] performs the assay using the Excel Business Intelligence System. [facility]-19, Nasopharyngeal [id number] 23:47:35 Test Item Value Reference Range Interpretation Comments Adenovirus (test code = Not Detected Not Detected 8350) Coronavirus 229E (test Not Detected Not Detected code = 5349) Coronavirus HKU1 (test Not Detected Not Detected code = 5350) Coronavirus NL63 (test Not Detected Not Detected code = 5351) Coronavirus OC43 (test Not Detected Not Detected code = 5352) COVID19 (SARS-CoV-2) Not Detected Not Detected (test code = 66207-6) Human Metapneumovirus Not Detected Not Detected (test code = 6401) Human Not Detected Not Detected Rhinovirus/Enterovirus (test code = 7212) Influenza A (test code Not Detected Not Detected = 5618) Influenza A H1 (test Not Detected Not Detected code = 5619) Influenza A H1 2009 Not Detected Not Detected (test code = 5620) Influenza A H3 (test Not Detected Not Detected code = 5621) Influenza B (test code Not Detected Not Detected = 5622) Parainfluenza 1 (test Not Detected Not Detected code = 6779) Parainfluenza 2 (test Not Detected Not Detected code = 6780) Parainfluenza 3 (test Not Detected Not Detected code = 6781) Parainfluenza 4 (test Not Detected Not Detected code = 6782) Respiratory Syncytial Not Detected Not Detected Virus (test code = 7157) Bordetella Not Detected Not Detected Parapertussis (test code = 33354) Bordetella pertussis Not Detected Not Detected (test code = 4854) Chlamydiophila Not Detected Not Detected pneumoniae (test code = 5139) Mycoplasma pneumoniae Not Detected Not Detected (test code = 6203) GEORGINA (test code = GEORGINA) The [employer] RP2.1 is a real-time, nested multiplexed polymerase chain reaction test designed to simultaneously identify nucleic acids from 22 different viruses and bacteria associated with respiratory tract infection, including SARS-CoV-2, from a single nasopharyngeal swab (DIGITAL MARKETING ASSOCIATE) specimen obtained from individuals suspected of respiratory tract infections, including COVID-19. Results must be interpreted within the context of all relevant clinical and laboratory findings and should not form the sole basis for a diagnosis or treatment decision. Positive results do not rule out coninfection with other organisms. Negative results in the setting of a respiratory illness may be due to infection with pathogens that are not detected by this panel, or a lower respiratory tract infection that may not be detected by an DIGITAL MARKETING ASSOCIATE specimen. Internal controls are used to monitor all stages of the test process and assess for possible amplification inhibitors. If inhibition is detected, testing is repeated and if inhibition is confirmed the specimen is resulted as "Invalid". When an "Invalid" result occurs, it is recommended to wait 3 days before submitting a new specimen for testing if clinically indicated. This assay has been approved by the FDA for use in laboratories that have been CLIA-certified to perform moderate-complexity and high-complexity tests. [facility], CLIA Accreditation #[id number] and CAP Accreditation #[id number], verified the performance characteristics of this assay. [facility] performs the assay using the Excel Business Intelligence System. The [employer] RP2.1 is a real-time, nested multiplexed polymerase chain reaction test designed to simultaneously identify nucleic acids from 22 different viruses and bacteria associated with respiratory tract infection, including SARS-CoV-2, from a single nasopharyngeal swab (DIGITAL MARKETING ASSOCIATE) specimen obtained from individuals suspected of respiratory tract infections, including COVID-19. Results must be interpreted within the context of all relevant clinical and laboratory findings and should not form the sole basis for a diagnosis or treatment decision. Positive results do not rule out coninfection with other organisms. Negative results in the setting of a respiratory illness may be due to infection with pathogens that are not detected by this panel, or a lower respiratory tract infection that may not be detected by an DIGITAL MARKETING ASSOCIATE specimen. Internal controls are used to monitor all stages of the test process and assess for possible amplification inhibitors. If inhibition is detected, testing is repeated and if inhibition is confirmed the specimen is resulted as "Invalid". When an "Invalid" result occurs, it is recommended to wait 3 days before submitting a new specimen for testing if clinically indicated. This assay has been approved by the FDA for use in laboratories that have been CLIA-certified to perform moderate-complexity and high-complexity tests. [facility], CLIA Accreditation #[id number] and CAP Accreditation #[id number], verified the performance characteristics of this assay. [facility] performs the assay using the Excel Business Intelligence System. [facility] CenterCRP (C-reactive protein)2022-01-17 23:02:51 Test Item Value Reference Range Interpretation Comments CRP (test code = 3.73 mg/L [place] CRP 78469-7) assay are as fo llows: Reference range s when used to assess cardi ac risk: <1.00 mg/L Low cardiovascular risk 1.00-3.00 mg/L Average cardiovascular risk >3.00 mg/L High cardi ovascular risk.Reference ranges when used to assess inflammatory responses: Less than or equal to 10.00 mg/L. [facility] (C-reactive protein)2022-01-17 23:02:51 Test Item Value Reference Range Interpretation Comments CRP (test code = 3.73 mg/[place] CRP 40481-6) assay are as fo llows: Reference range s when used to assess cardi ac risk: <1.00 mg/L Low cardiovascular risk 1.00-3.00 mg/L Average cardiovascular risk >3.00 mg/L High cardi ovascular risk.Reference ranges when used to assess inflammatory responses: Less than or equal to 10.00 mg/L. [facility] CenterProcalcitonin (PCT)2022-01-17 22:39:31 Test Item Value Reference Range Interpretation Comments Procalcitonin (test 0.95 ng/mL See_Comment H Procalci tonin > 2.00 code = 47351-6) ng/mL: Proca lcitonin levels above 2. 00 ng/mL are highl y suggestive of a high risk for system atic bacterial infec tion/ severe sepsis a nd/or septic shock. Procalcitonin < 0.50 ng/mL: Procalci tonin levels below 0. 50 ng/mL are at lo w risk for progression to severe sepsis a nd/ or septic shock. Procalcitonin ( ProCT) between 0.15 an d 2.0 ng/mL do not ex clude infection, yordan use localized infec tions (without system ic signs) may be associated with such low levels. Res ults greater than 40 0 ng/mL may not b e reliable due to the matrix effect w ith extended diluti on as it exceeds the certified low vision therapist's recommended meredith it. Caution should be exercised when interpreting abbasi ch values and done in conjunction wit h clinical contex t. [Automated mess age] The system [employer] generated this result transmitted ref erence range: <=0.08. The reference range was not used to int erpret this result as normal/abnormal . Lab Interpretation Abnormal (test code = 95547-4) [facility] CenterProcal[facility]onin (PCT)2022-01-17 22:39:31 Test Item Value Reference Range Interpretation Comments Procalcitonin (test 0.95 ng/mL See_Comment H Procalci tonin > 2.00 code = 20029-0) ng/mL: Proca lcitonin levels above 2. 00 ng/mL are highl y suggestive of a high risk for system atic bacterial infec tion/ severe sepsis a nd/or septic shock. Procalcitonin < 0.50 ng/mL: Procalci tonin levels below 0. 50 ng/mL are at lo w risk for progression to severe sepsis a nd/ or septic shock. Procalcitonin ( ProCT) between 0.15 an d 2.0 ng/mL do not ex clude infection, yordan use localized infec tions (without system ic signs) may be associated with such low levels. Res ults greater than 40 0 ng/mL may not b e reliable due to the matrix effect w ith extended diluti on as it exceeds the certified low vision therapist's recommended meredith it. Caution should be exercised when interpreting abbasi ch values and done in conjunction wit h clinical contex t. [Automated mess age] The system [facility] generated this result transmitted ref erence range: <=0.08. The reference range was not used to int erpret this result as normal/abnormal . Lab Interpretation Abnormal (test code = 17550-7) [facility] [id number] 22:13:36 Test Item Value Reference Range Interpretation Comments POC VB pH (test code 7.40 7.31-7.41 = 6719) POC VB pCO2 (test 28 See_Comment L [Automate d message] code = 6718) The system [facility] generated this result transmitted ref erence range: 41 - 51 mmHg. The reference r jimmy was not used to interpret this result as normal/abnor mal. POC VB pO2 (test 56 mmHg code = 6720) POC VB TCO2 (test 18 See_Comment L [Automate d message] code = 2026-) The system [facility] generated this result transmitted ref erence range: 24 - 29 mEq/L. The reference r jimmy was not used to interpret this result as normal/abnor mal. POC VB Bicarb (test 17 mmol/L 23-28 L code = 85986-6) POC VB Base Ex (test -6 mmol/L -2-3 L code = 1927-3) POC VB O2 Sat (test 89 % code = 2711-0) POC VB LAC (test 1.4 mmol/L 0.9-1.7 Method desc ription: code = 2519-7) The i-STAT is an analyzer used f or in vitro quantific ation of various anal ytes in whole blood. The device uses a s louis disposable cart ridge which contains microfabricated sensors, a calibration carey ution, fluidics system , and a waste chamber . Each test cartridge contains chemic ally sensitive biose nsors on a [employer] ip that are config ured to perform spec ific tests. The microfabricated sensors measure analyte concent ration by an electroch emical assay. POC Sample Type Venous (test code = 6690) POC Clean Dev (test Yes code = 6672) Performing Lab (test MDA Main Main Ca mpus code = 56767) [facility] Cli nical Lab, [address] [place] [address] [place] [address]; Refinery Operator Reforming Unit: Rossi Fisher MD Lab Interpretation Abnormal (test code = 97406-0) [facility] [id number] 22:13:36 Test Item Value Reference Range Interpretation Comments POC VB pH (test code 7.40 7.31-7.41 = 6719) POC VB pCO2 (test 28 See_Comment L [Automate d message] code = 6718) The system [facility] [employer] generated this result transmitted ref erence range: 41 - 51 mmHg. The reference r jimmy was not used to interpret this result as normal/abnor mal. POC VB pO2 (test 56 mmHg code = 6720) POC VB TCO2 (test 18 See_Comment L [Automate d message] code = 2026-) The system [facility] generated this result transmitted ref erence range: 24 - 29 mEq/L. The reference r jimmy was not used to interpret this result as normal/abnor mal. POC VB Bicarb (test 17 mmol/L 23-28 L code = 20985-5) POC VB Base Ex (test -6 mmol/L -2-3 L code = 1927-3) POC VB O2 Sat (test 89 % code = 2711-0) POC VB LAC (test 1.4 mmol/L 0.9-1.7 Method desc ription: code = 2519-7) The i-STAT is an analyzer used f or in vitro quantific ation of various anal ytes in whole blood. The device uses a s louis disposable cart ridge which contains microfabricated sensors, a calibration carey ution, fluidics system , and a waste chamber . Each test cartridge contains chemic ally sensitive biose nsors on a [employer] ip that are config ured to perform spec ific tests. The microfabricated sensors measure analyte concent ration by an electroch emical assay. POC Sample Type Venous (test code = 6690) POC Clean Dev (test Yes code = 6672) Performing Lab (test MDA Main Main Ca mpus code = 90045) [facility] Cli nical Lab, [address] [place] [address], [place] [address]; Refinery Operator Reforming Unit: Rossi Fisher MD Lab Interpretation Abnormal (test code = 49754-5) [facility] CenterLipid [id number] 16:25:03 Test Item Value Reference Range Interpretation Comments Chol (test code = 156 mg/dL See_Comment ATP III Cl assification of 2092-11) Total Cholester ol Primary Target of Therapy (in mg/dL):<200 Duhhcqxte228-41 9 Borderline high>=240 High [Automated message] The sy stem which generated this result transmitted ref erence range: <=199. T he reference range was not u sed to interpret this result as normal/abnormal . Trig (test code = 119 mg/dL See_Comment ATP III Cl assification of 3541-8) Serum Triglycer ides Primary Target of Therapy (in mg/dL):<150 Qnvxyp300-372 B orderline pfxc171-530 Hig h>=500 Very highNon-fasting triglycerides > 200 mg/dL may be followed up with a fasting Lipid P daniel. Calculated LDL- C may be falsely decreas ed when non-fasting tri glycerides >200 mg/dL. [Au tomated message] The sy stem which generated this result transmitted ref erence range: <=149. T he reference range was not u sed to interpret this result as normal/abnormal . HDL (test code = 49 mg/dL See_Comment [Automated message] The 2085-05) system which ge nerated this result transmit angelic reference range : >=40. The reference range was not used to interpr et this result as marc l/abnormal. LDL (test code = 83 mg/dL See_[place] [address]-0) LDL Cholesterol Primary Target of Therapy (in mg/dL):<100 Awtuvzu182-456 Near optimal/above -770 Borderline [id number] Hig h>=190 Very high [Automated message] The system [employer] generated this result tra nsmitted reference range : <=100. The reference range was not used to interpr et this result as marc l/abnormal. VLDL (test code = 24 mg/dL 64223-3) [facility] [place]Parvovirus B19 Quant, Plasma 2021-12-19 16:45:55 Test Item Value Reference Interpretation Comments Range Parvo B19 Not Detected Not Detected Assay Range: 1 99 IU/mL to Plasma-Vir IU/mL 1.38E+10 IU/mLO ne IU is equal acor (test to 0.73 copies of Parvovirus code = B19.The limit o f quantitation 6794) (LOQ) is 199 IU /mL. Parvovirus B19 DNAdetected below the LOQ w ill be reported as Det ected:<199 IU/mL.This test was developed and its perform ance characteristics determined by [employer] [facility]. It has not been cleared or approvedby the U.S. Food a nd Drug Administration. Results should be used inconjunction with clinical f indings, and should not form the solebasis for a diagnosis or treatment decision. Perf ormed At:[email or web address] [email or web address] [place] [address]Rkkzxxxwop Director: Butch Newell Ph.D ., SOFIA (ABB)CLIA#: [id number]: GEORGINA (test Coordinate w/ code = photophresis GEORGINA) [facility] CenterParv[facility] Quant, Plasma 2021-12-19 16:45:55 Test Item Value Reference Interpretation Comments Range Parvo B19 Not Detected Not Detected Assay Range: 1 99 IU/mL to Plasma-Vir IU/mL 1.38E+10 IU/mLO ne IU is equal acor (test to 0.73 copies of Parvovirus code = B19.The limit o f quantitation 6794) (LOQ) is 199 IU /mL. Parvovirus B19 DNAdetected below the LOQ w ill be reported as Det ected:<199 IU/mL.This test was developed and its perform ance characteristics determined by [employer] [facility]. It has not been cleared or approvedby the U.S. Food a nd Drug Administration. Results should be used inconjunction with clinical f indings, and should not form the solebasis for a diagnosis or treatment decision. Perf ormed At:[facility] [id number] [place] [address]Ollmqypeil Director: Butch Newell Ph.D ., BCLD (ABB)CLIA#: [id number]: GEORGINA (test Coordinate w/ code = photophresis GEORGINA) [facility] CenterVitamin D [id number] 17:39:49 Test Item Value Reference Range Interpretation Comments Vitamin D 25 OH 47 ng/mL 30-100 Reference Ra nge: (test code = Deficiency: <10 72893-1) ng/mLInsufficie nc y: 10-29 ng/mLSufficienc y: 30-100 ng/mLPotential toxicity: >100 ng/mL GEORGINA (test code = Coordinate w/ GEORGINA) photophresis [facility] CenterTSH2022-03-24 16:37:59 Test Item Value Reference Range Interpretation Comments TSH (test 1.82 See_Comment [Automated mes erinn] code = The system [employer] [place] 98358-1) generated this result transmit angelic reference range : 0.27 - 4.20 mcunit/mL. The reference range was not used to interpret this result as normal/abnormal . GEORGINA (test Coordinate w/ code = GEORGINA) photophresis [facility] CenterFree [id number] 16:37:40 Test Item Value Reference Range Interpretation Comments T4 Free (test code 1.30 ng/dL 0.93-1.70 = 3024-7) GEORGINA (test code = Coordinate w/ photophresis GEORGINA) [facility] CenterHemoglobin [id number] 16:21:18 Test Item Value Reference Range Interpretation Comments A1C (test code = 5.8 % 4.3-5.6 H HbA1c value s 4548-4) >=6.5% are diagnostic of diabetes mellitus.Diagno s is should be confirmed by repeat testing.Therape u tic Action suggested: >8.0 % HbA1c; Goal oftherapy: <7.0 % HbA1c GEORGINA (test code = GEORGINA) Coordinate w/ photophresis Lab Interpretation Abnormal (test code = 52690-3) [facility] CenterHemoglobin [id number] 16:21:18 Test Item Value Reference Range Interpretation Comments A1C (test code = 5.8 % 4.3-5.6 H HbA1c value s 4548-4) >=6.5% are diagnostic of diabetes mellitus.Diagno s is should be confirmed by repeat testing.Therape u tic Action suggested: >8.0 % HbA1c; Goal oftherapy: <7.0 % HbA1c GEORGINA (test code = GEORGINA) Coordinate w/ photophresis Lab Interpretation Abnormal (test code = 23143-2) [facility] CenterTMP Interpretation ABORh Bone Marrow [id number] 03:34:00 Test Item Value Reference Range Interpretation Comments TMP BMT ABORh . Interp (test code = FALGUNI 7538) DO ALLYSON MD - [id number] b y: TIMOTHY VALADEZ MD - 1 2005Dictated Date/Time: 09.22 21:33 PM [facility] CONCIERGE Transcri bed Date/Time: 10.09.2021 21:3 3 PM CSTElectronical ly Signed By: MD Carolina VIDALES [id number] on 10.09.2021 2 1:33 PM [facility] ABORh Bone Marrow [id number] 03:34:00 Test Item Value Reference Range Interpretation Comments TMP BMT ABORh . Interp (test code = FERMICHAEL 7538) MD Carolina PAULSON [id number] b y: MD Carolina GARCIA 1 2005Dictated Date/Time: 09.22 21:33 PM [facility] Transcri bed Date/Time: 10.09.2021 21:3 3 PM CSTElectronical ly Signed By: MD Carolina VIDALES [id number] on 10.09.2021 2 1:33 PM [facility] [id number] 20:22:17 Test Item Value Reference Range Interpretation Comments CURRENT ABO REVERSE (test code = 883-9) [facility] [id number] 20:22:17 Test Item Value Reference Range Interpretation Comments CURRENT ABO REVERSE (test code = 883-9) [facility] [id number] 20:22:16 Test Item Value Reference Range Interpretation Comments Current ABOR (test code = 882-1) O POS [facility] [id number] 20:22:16 Test Item Value Reference Range Interpretation Comments Current ABOR (test code = 882-1) O [facility] 2021-09-25 00:00:00 Test Item Value Reference Range Interpretation Comments FVC (L) pre (test code = 2.329 L 2.834-4.311 L 9507) FEV1 (L) pre (test code 1.710 L 2.138-3.388 L = 9505) FEV1/FVC (%) pre (test 73.440 % 68.265-87.853 code = 9509) DLCO_SB ml/(min*mmHg) 17.221 See_Comment [Auto mated message] (test code = 9515) The syste m which generated this result transmitted ref erence range: 16.177 - 36.343 ml/(min* mmHg). The reference r jimmy was not used to interpret this result as normal/abnor mal. DLCOc_SB ml/(min*mmHg) 17.496 See_Comment [Aut omated message] (test code = 9516) The syste m which generated this result transmitted ref erence range: 16.177 - 36.343 ml/(min* mmHg). The reference r jimmy was not used to interpret this result as normal/abnor mal. TLC (L) (test code = 4.629 L 4.311-6.285 9513) RV (L) (test code = 2.300 L 1.425-2.577 9514) RV/TLC (%) (test code = 49.687 % 29.770-48.950 H 9517) FVC (% pred) pre (test 65 % code = 9520) FEV1 (%pred) pre (test 62 % code = 9518) FEV1/FVC (% pred) pre 94 % (test code = 9522) TLC (% pred) (test code 87 % = 9526) RV (% pred) (test code = 115 % 9527) RV/TLC (% pred) (test 126 % code = 9528) DLCO_SB (% pred) (test 66 % code = 9529) DLCOc_SB (% pred) (test 67 % code = 9530) Lab Interpretation (test Abnormal code = 69238-7) [facility] 2021-09-25 00:00:00 Test Item Value Reference Range Interpretation Comments FVC (L) pre (test code = 2.329 L 2.834-4.311 L 9507) FEV1 (L) pre (test code 1.710 L 2.138-3.388 L = 9505) FEV1/FVC (%) pre (test 73.440 % 68.265-87.853 code = 9509) DLCO_SB ml/(min*mmHg) 17.221 See_Comment [Auto mated message] (test code = 9515) The syste m which generated this result transmitted ref erence range: 16.177 - 36.343 ml/(min* mmHg). The reference r jimmy was not used to interpret this result as normal/abnor mal. DLCOc_SB ml/(min*mmHg) 17.496 See_Comment [Aut omated message] (test code = 9516) The syste m which generated this result transmitted ref erence range: 16.177 - 36.343 ml/(min* mmHg). The reference r jimmy was not used to interpret this result as normal/abnor mal. TLC (L) (test code = 4.629 L 4.311-6.285 9513) RV (L) (test code = 2.300 L 1.425-2.577 9514) RV/TLC (%) (test code = 49.687 % 29.770-48.950 H 9517) FVC (% pred) pre (test 65 % code = 9520) FEV1 (%pred) pre (test 62 % code = 9518) FEV1/FVC (% pred) pre 94 % (test code = 9522) TLC (% pred) (test code 87 % = 9526) RV (% pred) (test code = 115 % 9527) RV/TLC (% pred) (test 126 % code = 9528) DLCO_SB (% pred) (test 66 % code = 9529) DLCOc_SB (% pred) (test 67 % code = 9530) Lab Interpretation (test Abnormal code = 46746-3) [facility] ([place], DLCO, LV) 2021-08-21 00:00:00 Test Item Value Reference Range Interpretation Comments FVC (L) pre (test code = 2.359 L 2.834-4.311 L 9507) FEV1 (L) pre (test code 1.725 L 2.138-3.388 L = 9505) FEV1/FVC (%) pre (test 73.134 % 68.265-87.853 code = 9509) DLCO_SB ml/(min*mmHg) 16.588 See_Comment [Auto mated message] (test code = 9515) The syste m which generated this result transmitted ref erence range: 15.767 - 35.934 ml/(min* mmHg). The reference r jimmy was not used to interpret this result as normal/abnor mal. DLCOc_SB ml/(min*mmHg) 17.139 See_Comment [Aut omated message] (test code = 9516) The syste m which generated this result transmitted ref erence range: 15.767 - 35.934 ml/(min* mmHg). The reference r jimmy was not used to interpret this result as normal/abnor mal. TLC (L) (test code = 4.725 L 4.311-6.285 9513) RV (L) (test code = 2.366 L 1.425-2.577 9514) RV/TLC (%) (test code = 50.074 % 29.770-48.950 H 9517) FVC (% pred) pre (test 66 % code = 9520) FEV1 (%pred) pre (test 62 % code = 9518) FEV1/FVC (% pred) pre 94 % (test code = 9522) TLC (% pred) (test code 89 % = 9526) RV (% pred) (test code = 118 % 9527) RV/TLC (% pred) (test 127 % code = 9528) DLCO_SB (% pred) (test 64 % code = 9529) DLCOc_SB (% pred) (test 66 % code = 9530) Lab Interpretation (test Abnormal code = 00669-6) [facility]isHSV 1+2 Quant [id number] 23:16:44 Test Item Value Reference Range Interpretation Comments HSV1 Not Detected Not Detected Plasma-Ashley copies/mL cor (test code = 5829) HSV2 Not Detected Not Detected Assay Range fo r HSV 1 is 37 Plasma-Ashley copies/mL copies/mL to 1. 00E+08 cor (test copies/mLAssay Range for HSV 2 code = is 73 copies/mL to 1.00E+08 5836) copies/mLThe li karen of quantitation (L OQ) is 37 (HSV 1) and 73 (HSV 2)copies/mL. HSV DNA detected be low the LOQ will be reported asD etected:<37 copies/mL (HSV 1) or Detected:<73 co pies/mL (HSV 2).This test wa s developed and its performance characteristics determined by [employer]. It has not been cleared or approvedby the U.S. Food and D rug Administration. Results should be used inconju nction with clinical findin gs, and should not form the so lebasis for a diagnosis or tr eatment decision. Performe d At:[facility] [place] [address]Tfpepoacak Director: Butch Newell Ph.D., BCL D (ABB)CLIA#: [id number] e: [facility]isCatheter Site [id number] 22:57:35 Test Item Value Reference Range Interpretation Comments Final Report (test No growth code = 8488) Path Review (test The results have been code = 8492) reviewed and electronically signed by Pathologist:JAMES JI MD #[id number] GEORGINA (test code = Catheter red hub GEORGINA) [facility] CenterProthrombin [id number] 17:20:18 Test Item Value Reference Range Interpretation Comments PT (test code 12.3 See_Comment Testing Perfor med = 5902-2) [facility] [address] [address] [Automated mess age] The system [employer] generated this result transmitted ref erence range: 11.5 - 1 3.9 second(s). The reference range was not used to int erpret this result as normal/abnormal . INR (test code 0.99 0.90-1.10 Testing Perfo rmed = 6301-6) [facility] [address] [address] GEORGINA (test code This lab cannot be = GEORGINA) scheduled at the following locations due to collection/proccess ing restrictions: [facility] and [facility]. [facility]isPath[facility] Biopsy Interpretation 2021-06-29 21:50:21 Test Item Value Reference Range Interpretation Comments Submitted Clinical History j4fapLEdHDUke4qwFPR (test code = 89094) mbGFuZzEwMzNcZnRuYm pcdWMxIHtccnRmMVxzc 5IhO5ZgAaMyBKzgzpSs XGRlZmxhbmcxMDMzXGZ 0bmJqXHVjMVxkZWZmMH vdJm5ysTLwiPxlPbRtS SLyv5stqbQUlakgmAk4 t9thFFTwUvQ3nUNnIRs uW5gvkqMunKHtSZEcGI z6vY62BXIbpB9ljQLaG AqcxrUzCxT5FQmzQXPe CdH2ITYwvEWgWEVnP1p yZWQwXGdyZWVuMFxibH EwUHN0bYwmo4L2rWOsb GVldHtcZjBcZnMyMiBO o9PmFKk9sQstQ1WmUHI qXsV8fDJeUBTeYMblHN DnLUPlhmH4sZ65KJldy iE8uHOrv4Skr54ug181 eW2jcFVtGSN9GQUnZFA rtWQcUWTvUEX6PHSvaG CyN3bxDISvQA6chlazI LahGDjfDIMcaJY7ITJg dATzA0HgXJPsPWxiBVD cfbx8CnCtIx5qhOPojF bkYGzrs5pvf3dbsXRtF wi6ASLeYxZmDnqzUBym h5Qoq2qqWOXoeu6jPLK 6gJQefMnyv2R4wYRhGE LiyBVvruRwNIHxGsW9K FzoIQ6ifr40BXFiHDE7 xs6juQYfiSepafSbqHG vDYgkF6CzDJLbq970TW NmK2LsFJTxh8T8niCqT kDrVYWmqXX4xiW4LCKf WZi6tMTxlaD0rmNoeVE xV6upeD4tNHPfQJ7vpy ost5ubZTcsAIdfQWSqo EJ8zeN4FEGoaMHrW2Lq hL7mNVRbVNwaMWOxjws 4QhCzKz4myBRftVwfVE xzYmtwYWdlXHBnbmNvb nRccGduZGVjXHBsYWlu XHBsYWluXGYwXGZzMjR mvKqqmPxfpN9nXiJqEe PqPWvzRF0kHQWyS3ela CWlFFUcDDUrE7ibJxHd wW0tuSjrERhtpmHiYJX 4RRU4uxVyt4U1SFH0JZ 3eX9DfcWP9epFsv4ZnS R97IJkiMFGuCMJbNDKz asMHFCQvWYMfw9k2iSP 3l50llNfqPwNnXiRoUq JdXHBsYWluXGYxXGZzM jJcbGFuZzEwMzNcaGlj aFxmMVxkYmNoXGYxXGx wH2rgYrLgTrYpPgjjNM J9fQ== Diagnosis (test code = 34) x1dkiKJpPXWlaJU4MGU sCEChm6bgi3FeyNXvyL RbELajaLVndsSglt09f YI7rF90NH9hVDOqJgN5 UWKgyiB4Laz2KFTxMPG xuHCsG078u6tbj8ctbc DzvBC9aCfyRAYywljeQ jZ0UQkcGJDgpiotJMu0 UYqpKSZqqQO7WXTkjCX vK3DfMSMwCZ9cdnz2DK Y6ZFpyFQGnJeQ8JMOcm EOwWNBdsCgjRBrhh410 ZWE2SyTbHMQbyjCkrNo jrB4oYdZvXCYXCbQyPU PcKFLymL0kKFVvl9Qmj TpcbGluZSAgXHRhYiBE lZ4rSE7wtQHbzFXuh1M yh7k5qJLye19wTKUnGJ LhhilydOLwrD1vuU29a ULfBi1eaVBaWHKaa7Mc zO4gi2hrW4XcyMfhE5V cHgImmwJsu6HpYLngb2 GzPUafUFAjLESuZ9ZmY EErIVEaYkP6MNmlJEAe LGg3CVOcO5WmSCQqoS0 lbnRcbGluZSBCLiAgU3 BziBDxzScgFD40mjGzH EEpjG0ft2f8RBabisUw MFg7OHHkIF21ecXxKYP dTSS2yxZkh5w0sO7dHP ffxJmoLLWqsBOtf6Thw 2u5aHZsRUZxDYsdx9ca jSPnQUGmxAB4XVWfj0T 3z7YzBzPly0AwBWFmNB 8uyCFtgNYfur8toOtpT GZvciBHVkhEXHBhciAg WQGkMlLAAYEvV14muTR cqWproI9vWGOnQPAIuX 0eAKMcDYEmMKS4qsneU FEeJGczAO9tRJLePBHy zK5xeREiBYHxs4BjfLu cbGluZSAgXHRhYiBPeH nynNcrPL65I12rJYZ0n YZfQDYcE7KyTFvmY9Hk YXNlZCBjcnlwdCBhcG9 xlN51dQPeVf3alAUhFL Urv3IweY4zu6mzK8Qmz BfkO50kwRV5eROxWMM9 aXRoIEdWSEQgKGdyYWR uKXZjm6UqHVcfyIkyDI QnUDTbHzLSQUNeU68il TJhuTgncL3hKYDlzm0= Comment (test code = 9835) s7olbCBdRPIxnEB0SUD vBGJlm8jlm5UghALgeL JzTEufnKIidkDtgh20b VD2vU74YC1mAQQbYbM3 JIFxfvA5Ygq0ZHNxWGM kuGQgI965w9eez8hcoi EwhNM8hTpzJEYshwjvX dF9MTkwQNTmbgemPJk6 HAzeAMXzaUT5NQAceSB bB1KwRZFeFU3yhvd4HR R7QAyqJKUvAdV9AQEtw QUwKYJqiRjmPZfec579 VCW2AfPlBCNktuXmyNv bbK2uWxWrEZOQjxI6qH SzwIOxemJsgTVbt38oJ HmsON51qAInGMCdcG4n xYoaTTVpe1GeUOYpGYZ dwMYdrq5sZQogjfVqW9 krhnvyEFvbC25mwwXiB QJpw19shLZylpCea32t RF9fVOKoLQVtyy6= Gross Description (test r0mrzCNpFXIlyFFLZGF code = 0279892717) lR7xyotXfVLKezNCtH5 DnimesQAitZD6iGE1kr QpziMTiaUIkQP1MZSBf ZmYxXHBhcGVydzEyMjQ lVATmqYNwzEI6MMKaGP 1hcmdsMTgwMFxtYXJnc tV6XJIppWLbC7JgSOGr GI2zddawXPA0VYdfwN7 tcxIAXtqbZj7wzSMoxN tcZjFcZmNoYXJzZXQwX TShsPocZZYkKIt1dP2M DjixL66zg5N0Wwd5HNU iYWVvT5DqHQ1eNLCfeM YzT75QLgweCMC2RHFUF crrRJGsVV2Uo2tdJOOx vPKxMKJ8TQkiaMDlTFE kBXXeAZq2ZPTsELnmdL ThIE2ulGqxYhnbtLqyu 2VjdCBcXGlkIDUxMDAy RCajPMPiWT1LRcXfUZG bIlHtRSmcIHc9TCn7PX 6QZaNpXODpUMdhBDK2Q bXcBUx3RWarNQ0AKZf8 JcElRYTeXoJ3EXLzJsU cXHQgMiBcXGYgQXJpYW wgXFxmcyAxMCBcXGZiI OmcBynnZYlgP09ziXya hH7cOrcitcCsUSL0DLF hciANClxwbGFpblxlcG ljTmVzdERvYzEgDQpcb HRycGFyXGxpbjBccmlu MCANClxsdHJjaFxiXGN bYLvnqjNqTLM6v3Qxeq EwVTOcrG7oRB36pTZ7Z JSiGSByEWRjPC32DAqe MM5cFNakCF8uYGRhDHL tM8TlS6G8PZGsVaXlaG 9yARNhkaGxv3A0MYVrh 0U0RUwaQS47xBSdfNtb o7GozCe9cIAvPCozNDB bRhDdRIInc8PmO8R4BF NoGUtvt5krSBUiANzjg 2FpJApQEOEKDB5KWN1b pIV8FQiOM0XEB3nWyHI bROB0cDJ7GYDXKmnzfO Q2xJE7cR22OKTiTXInj WOjPMkqL895TbjEj3hf aWVsZHtcKlxmbGRpbnN 0IEhZUEVSTElOSyBuYW 0aRMsEUktHUoL0EgPoJ SK0OEtHU8RGnHD9Nsq8 MQc2oWowSotfkmWeuTA zLfWWdK6dpWuuhJ1xmT MzE2yrXqBsNRTABfqly GFpblxlcGljTmVzdERv IuSvhTbkyG31DQRuiLF lHIK3IH6oGOAlxhbrAS WkWYDyFYR1NCyfaZ30r AOoNOCfGWHeuFYygN0K s4xrPHJvzNRsERP4MJe caWQgNTEwMDIgXFxkYi VyI0ZTRDMqEiH3VMT9X TZzLJz8UNdyU5AIGDAb UEB5MPS1LlQ5BaO7SPk 6RJDKOr8tYNRoVEA1Cs vhZVH8JFC4DMsviNRcW FxcZiBBcmlhbCBcXGZz IDEwIFxcZmIgXFxmbCB zDU3vcEzrKTXwTcRmWd jbsHFlEE1CEHQgTKqsR DVetLWVWIQ0CK9sVXEA ClxsdHJwYXJcbGluMFx dhG3qQN4SREb7khTtLV QuE0QfFQGoRkHmT8Gpx KVfoQgzOB25hhXfVZpx LrFaE7KeXKJrZoVkkNL aXaOgyLMkWvLuZ64mOM ijhkDtWZHuDU1uMLVxe mstdGFuIHNvZnQgdGlz q9IqYVRfqfLivsRjiOH meYCxqIA8GRFehM0bGt EuICBccHJvdGVjdHtcZ mywjAA7XKwcTtpphK5o dCBIWVBFUkxJTksgbmF yET4RFF7FYtHNZE55Mw OmKZW9FHaCZ2JNuIJ8R hy9KIl0eHuwAhofsfAt tXCgIpTIhZ7ZIPS5QDB fWDych7fiKJDsDHgcp1 CrEGsSFHALFC5RYW4jq UO6YYbGD8LPVBakSFRy EpxlvCIBJSP5ZFwivXa tiSl2u5zpyIGup8n6LX goXSX0nSzzaXVxfqlhm AHwpUjjpsZpYK4TWFMu AXkvZTKvhJUGOZK8IJ7 jMFxwbGFpbntcZXBpY3 FrP9WgrhRkyMIxIRSxc wSuq9mvQQG2IWPwxEQp hKKtXgEePfrlLGY2HDn 3WAaoVWFoQ9ViQ8RgMH ryAAY3KNCaCoKuUGCfQ CBPVlIgIiBDMjYwMDQ5 MyW2SXo0KMPVBhQsWoW aKNQ7VnLuULBhXUg1LV d4RPbCJdH6NOZnTiz2M QCbVUR2ZRlnYQx4JAZx XFxmIEFyaWFsIFxcZnM gMTAgXFxmYiBcXGZsIF cftnY8MJKrBgQwSONRS sbbJXFgENfoiKgdpY2u MONsO85ap7WRg2HcHQ1 VVWa8jtKycedepO7nBF ApmeVxTMkwxAIiI3qcG xywOkZaYtPpKDKXyY3u POXiBWXmDBE7pqcpNNG fUYozWA2rQER9bnM3bw mjYcRcM4JzJAUrZdeak OVlUoWscYBsBxNoB89u ZLmuxcUjUDGmPU8fWCR pbmstdGFuIHNvZnQgdG xpc2MxBERscuMtpoWcr AZfkSEllIN1CJLwpD1m QzEuICBccHJvdGVjdHt sMgxqcRE6WCyrUqtidZ 5zdCBIWVBFUkxJTksgb jEbWL8YDZ0GRaBBPH06 GjSaNSZ2GFdNT7RPcIO 2Bek0DGi8oTsfSobkql SayBRrHyUMrS1VQAQ4W UGqRBabh6nnXGUcGXfl o7LuZFbVAERVQO5BYJ1 jcGY4CEpWA4MUTIjxDO UwJaggaQTQEMW1PAuoq TigaAn9p8fuqHCmr7r7 ZFfxIQT0uAereCGfbpg zwMYunLwfiyYgHF3XFB GtKYexRHTzfVWVJHL0E V2yLZzzsKZtytfkQTQo B0NeD4YeckOmfXXiSXY risUua4xjMRE5HYYqvZ DnjUHiReTvRibmXZX6L Ydks7tcYPU7DLJijEUu dDAgDQpcZnMxNntcZXB fA5FuS7AretQ6BRx8 Disclaimer (test code = p0ddsITcDQQsgCUcUwP 9844) aZKIiPUImb4ruEEQqbC FuZzEwMzNcZnRuYmpcd SHdDPUeRmEdp4nvu815 pEOse5ngFSBpKmF1dHK pLGGwuDLiC079XOFiMT fqd1ipg7BkGLAivWIrv 6T6VRLXavsfoDz8bNbf U58nr9N6FnzfU4ejTLI kOHSoH1VcMO3fPIWeQe h9BAM9GXQ1MKHhLUDzJ 6ZbLV4nTLClfHCaTXi6 r7mnhZmvDACxCPI4x8e vLMbfbzYbIA7nev6kqJ b2u8ogzfOqZSTsHXUxg HFKBLGnB8OkdMfmDa9i aKs8iQdoQgvmNYX4Eoz 9TW7wvk76och1pYplZY PncyoyAcG8KUyhRDJrd znzSUn0YEweHVNkhMV1 BJMguLHsP4GnMTWyUZ8 qcxs0YAT9CRuwKNYeSv K1ZNWesVTxMFMokStfI Zldw768JIW5CrQaZO9m O9Lly5R7zM3aaCYoJDZ zzGOfQsZvIRYqor2jwX AjSRypx1NiQST2kfM0f LBofWKoTJFlFK77Qldr y4VmRsjgZCO4CLEccbS kz6Vgh9trMqBtklTxD0 jhE3KaPCGoRHPjHYXcZ vQarxAck9Jof8PgzMFd cZp1n7cyXXLwMVOvfTq xz5ulCYS1ENGyL2O9hQ Lwm7obCRvcTLHfuNG4q sL2MWAibJBjQ3RacY0f HGLnFV2nyty5c8diIGC 4AQftUQMiPlF5yaS1AJ BcaGVhZGVyeTcyMFxmb 060IOY7PqMfDUIcc1Ju E1OkuUxmD57ixBpzS28 uAKOdpOfhtH4yiMiggA 5cZjBcZnMyNFxxbFxwb GHtwdnsGKnpciR7LKmx zfaeVIRvXOseL8rqVuW kAJOvtFfhCWmqy6EeVM BnDAGcXtwnahR7LYBMk 43yBOCdv5LaDGWsaT6w uWReJGpoltXmrGN2EFy hdmUgYmVlbiBkZXZlbG 4kPXOqZQ3cTFKnpvFct g4cwcEjMOJvXUYiQ0Ek cmlzdGljcyBkZXRlcm1 sphPxAGC0VKFTKR0OPR FwATLnf61rEELjrZgzn I2jnBVfsrOvKMTkt1Vk qH1weZOCFMZqY1mqPZ3 aMDeja6PsiCZfsNAgtV J3NGGml5CcXiKrzxZij DQxwEInT9AwzVjcY1eh PXGlAGAfjhUmxECfi0M tIYDicHT0oFLqMN6GCd QZa90kIGAyCAEDbgCkS PBgaTuifOS0zdQ4xO2h LiBJZiBhcHBsaWNhYmx lMLBsy926nk4loxG1TU PpKAJrkclue5TbDQTuJ DGzvO39CRWxVSThij3p rhaanZKbaiQhL1Oyemw 7rQ3tLKKnMYsvMPBlUW ZzMjJcbGFuZzEwMzNca GljaFxmMVxkYmNoXGYx HHttB9zcQiTpOsCxKiz wYXJ9 [facility] [id number] 12:19:23 Test Item Value Reference Range Interpretation Comments aPTT (test code = 30.5 See_Comment [Automate d message] The 6722) system which ge nerated this result transmit angelic reference range : 24.7 - 36.8 second(s). The reference range was not used to interpr et this result as marc l/abnormal. [facility] Center[facility] [id number] 11:50:28 Test Item Value Reference Range Interpretation Comments Topiramate 6.8 mcg/mL -----REFERENCE l-Douglas (test VALUE-------- code = 85438-4) Reference va lues depend on clinical use: A nticonvulsant: 5.0-20.0 mcg/mL Psychiatric: 2.0-8.0 mcg/mL ----ADDITIONAL INFORMATION---- T his test was de veloped and its performance characteristics determined by [facility] in a manner consistent with CLIArequirement s. This test has not been cleare d or approved bythe U.S. Food and Drug Administration. Test Performed by:[facility] [address] [place], [place] [address]Una Dir kyung: Santhosh Sanders M.D. Ph.D.; CLIA# [id number] [facility] CenterInfluenza A/B + COVID-19 Asymptomatic- [id number] 02:08:19 Test Item Value Reference Range Interpretation Comments COVID19 Not Detected Not Detected (SARS-CoV-2) (test code = 38493-5) Influenza A (test Not Detected Not Detected code = 48383-1) Influenza B (test Not Detected Not Detected code = 05327-0) COVID19 SARS Inpatient Indication (test Admission code = 20219) Inf AB+Cov19 See Note The derrick SARS- CoV-2 Comment (test & Influenza A/ B code = 41958) nucleic acid t est for use on the wilber s Vera System is a mul tiplex real-time RT-PC R assay intended for the simultaneou s, qualitative det ection and differentia l of SARS-CoV-2 (COVID-19), inf luenza A, and influenz a B viral RNA in nasopharyngeal swabs in transport me zoila from patients suspected of phelan ving a respiratory inf ection with one of the se viruses or poss ibly exposure to COV ID-19 by a healthcare provider. Resul ts must be interpr eted within the cont ext of all relevant cl inical and laboratory findings and sh ould not form the so le basis for a zoila gnosis or treatment decision. A fac t sheet for patie nts provided by the certified low vision therapist ([employer]) can be rev iewed at: https://www.[employer] .gov/m edia/844142/eloisa nloadA fact sheet for Health Care providers is provided by the certified low vision therapist ([employer]) and can be reviewed at: https://www.fda .gov/m edia/850877/eloisa nload Influenza A and Influenza B neg ative results should be considered presumptive in samples that phelan ve a positive SARS-C oV-2 result. If co-infection wi th influenza A or influenza B vir us is suspected in sa mples with a positive SARS-CoV-2 resu lts, the sample shou ld be re-tested with another approve d influenza test. This assay has been authorized by t FDA for use only un butch Emergency Use Authorization ( EUA) in laboratories that have been CLIA-certified to perform moderate-comple xity and high-comple xity tests. The [facility], CLIA Accreditation #[id number] and CAP Accreditation #[id number], verif ied the performance characteristics of this assay. Int ernal controls are us ed to monitor all sta ges of the test proces s. [facility] Test Item Value Reference Range Interpretation Comments Lipase Lvl (test code = 6165) 29 U/L 13-60 [facility]
--- NOTE | 2022-08-31 15:35 | EDPHYS ---
Physician Documentation [facility] Name: Karina Pinto Age: 61 yrs Sex: Female : 1960 Arrival Date: 08/31/2022 Time: 13:22 Bed IW4 Private MD: ED Physician Osmar Hall HPI: 08/31 14:50 This 61 yrs old Female presents to ER via Unassigned with complaints of Toe Injury, cp Knee Injury. 14:50 The patient presents with an injury, pain, that is acute. The complaints affect the cp right knee and right foot. Context: The problem was sustained at home, resulted from the patient tripping, over a pet, the patient can fully bear weight, the patient is able to ambulate, with mild difficulty. Onset: The symptoms/episode began/occurred yesterday. 14:50 Associated signs and symptoms: The patient has no apparent associated signs or symptoms.cp ROS: 14:55 MS/extremity: Positive for pain, tenderness, of the right knee and right foot. cp 14:55 Eyes: Negative for injury, pain, redness, and discharge. cp 14:55 Constitutional: Negative for body aches, chills, poor PO intake. 14:55 Neck: Negative for pain with movement, pain at rest, stiffness. 14:55 Cardiovascular: Negative for chest pain, palpitations. 14:55 Respiratory: Negative for cough, shortness of breath, wheezing. 14:55 Abdomen/GI: Negative for abdominal pain, nausea, vomiting, and diarrhea. 14:55 Back: Negative for pain at rest, pain with movement. 14:55 Skin: Negative for cellulitis, rash. Exam: 15:00 Constitutional: The patient appears in no acute distress, alert, awake, non-toxic, well cp developed, well nourished. 15:00 Head/Face: Normocephalic, atraumatic. cp 15:00 Neck: ROM/movement: is normal, is supple, without pain, no range of motions limitations. 15:00 Chest/axilla: Inspection: normal. 15:00 Cardiovascular: Rate: normal. 15:00 Respiratory: the patient does not display signs of respiratory distress, Respirations: normal, no use of accessory muscles, no retractions, labored breathing, is not present. 15:00 Musculoskeletal/extremity: Extremities: grossly normal except: noted in the right knee: pain, tenderness, There is no evidence of decreased ROM, deformity, noted in the right foot: pain, tenderness to great toe and dorsum mid foot, no evidence of deformity, Pulses: noted to be 2+ in the right dorsalis pedis artery. 15:00 Neuro: Orientation: to person, place \T\ time. Mentation: is normal. MDM: 14:44 Patient medically screened. cp 15:00 Differential diagnosis: dislocation, closed fracture, contusion. cp 15:33 Data reviewed: vital signs, nurses notes. cp 15:33 Counseling: I had a detailed discussion with the patient and/or guardian regarding: the cp historical points, exam findings, and any diagnostic results supporting the discharge/admit diagnosis. ED course: Patient declined to wait for xrays of right knee and right foot to be done. Patient may return at any time for reevaluation. Administered Medications: No medications were administered Disposition: 17:30 Co-signature as Attending Physician, Osmar Hall MD I agree with the assessment and rt plan of care. Disposition Summary: 08/31/22 15:34 Discharge Ordered Location: Home cp Problem: new cp Symptoms: are unchanged cp Condition: Stable cp Diagnosis - Pain in right foot cp - Pain in right knee cp - Fall on same level, unspecified cp Followup: cp - With: Private Physician - When: 2 - 3 days - Reason: Recheck today's complaints Discharge Instructions: - Discharge Summary Sheet cp - Elastic Bandage and RICE Therapy cp - Acute Knee Pain, Adult cp - Foot Pain cp Forms: - Medication Reconciliation Form cp - Thank You Letter cp - Antibiotic Education cp - Prescription Opioid Use cp Signatures: Dispatcher [employer] EDMS Roosevelt Li PA PA cp Osmar Hall MD MD rt Corrections: (The following items were deleted from the chart) 09/01 04:01 08/31 14:00 MS/extremity: Positive for pain, tenderness, of the right knee and right cp foot, cp
--- NOTE | 2022-08-31 15:38 | ER ---
Nurse's Notes [facility] Name: Karina Pinto Age: 61 yrs Sex: Female : 1960 Arrival Date: 08/31/2022 Time: 13:22 Bed IW4 Private MD: Diagnosis: Pain in right foot;Pain in right knee;Fall on same level, unspecified ED Course: 08/31 13:22 Patient arrived in ED. as 13:55 Roosveelt Li PA is PHCP. cp 13:55 Osmar Hall MD is Attending Physician. cp 15:37 Abigail Wright RN is Primary Nurse. iw Administered Medications: No medications were administered Outcome: 15:34 Discharge ordered by MD. cp 15:37 Patient left the ED. iw Signatures: Regi Marroquin as Abigail Wright, RN RN iw Roosevelt Li PA PA cp
== END 2022-08-31 15:37 | disposition home or self-care (01) ==
LOC: ER 13:21
DX: M79.671 Pain in right foot (principal); M25.561 Pain in right knee; W18.30XA Fall on same level, unspecified, initial encounter